=== PATIENT | female | born 1970 | race Caucasian/White ===

== ENCOUNTER 2017-08-24 13:22 | Emergency (ER) | payer SELFPAY ==
[2017-08-24 13:23] VITALS: BP 160/108; PULSE 115; RESP 22; TEMP 37.2; O2SAT 95; BMI 39.5
--- NOTE | 2017-08-24 13:40 | RAD_ITS ---
STUDY: X-RAY CHEST REASON FOR EXAM: Female, 46 years old. Chest pain/anxiety attack. TECHNIQUE: Single portable frontal chest. COMPARISON: October 16, 2013. FINDINGS: The lungs are clear and expanded. There is no pleural effusion. There is no pneumothorax. Normal size heart. Normal mediastinum and magda. Normal visualized pulmonary arteries. Normal visualized aortic arch and descending thoracic aorta. Normal visualized thoracic spine. Normal visualized ribs, clavicles, and shoulders. There is no demonstrated abnormality of the visualized soft tissue structures of the upper abdomen. RAD/Chest 1 View (Portable) IMPRESSION: There is no radiographically evident acute cardiopulmonary disease. Electronically Signed: Jimmy Contreras MD at 15:08 EDT , Service support ,
--- NOTE | 2017-08-24 13:40 | EKG12_ITS ---
Test Reason : CP Blood Pressure : / mmHG Vent. Rate : 097 BPM Atrial Rate : 097 BPM P-R Int : 184 ms QRS Dur : 100 ms QT Int : 364 ms P-R-T Axes : 037 004 017 degrees QTc Int : 462 ms Normal sinus rhythm Low voltage QRS (limb leads) Poor R wave progression Confirmed by FIDENCIO BETTENCOURT, CHAYA ([id number]), telegraph editor REID SALGADO ([id number] on 08/27/2017 12:57:40 PM Referred By: NED/STANFORD Confirmed By:CHAYA NICOLAS MD
[2017-08-24] MEDS: 0.9% Normal Saline 1,000 ML 150 ML IV (14:01)
[2017-08-24] MEDS: LORazepam 2 MG/ML Syringe 1 MG IV ×2 (14:01→15:41)
[2017-08-24] MEDS: Aspirin 81 MG TAB.CHEW 324 MG PO (14:01)
[2017-08-24 14:09] VITALS: O2SAT 97
[2017-08-24 14:15] LABS: Absolute Neutrophil Count 5.4 X10^3/uL (2.0-7.7); Basophil# 0.02 X10^3/uL; Basophil% 0.3 % (0-1); Eosinophil# 0.04 X10^3/uL; Eosinophils% 0.5 % (0-5); Hematocrit 38.9 % (37-47); Hemoglobin 13.5 g/dl (12.0-15.0); Lymphocyte % 19.2 % (19-41); Mean Corp Hgb Conc 34.7 g/gl (32-36); Mean Corpuscular Hgb 28.8 pg (27.0-32.0); Mean Corpuscular Volume 82.9 fL (81-99); Mean Platelet Vol. 10.3 fl (6.2-12.0); Monocyte# 0.38 X10^3/uL; Monocyte% 5.2 % (0-10); Neutrophil # 5.43 X10^3/uL (2.7-7.7); Neutrophil % 74.7 % (47-70); POSITIVE COUNT NO; POSITIVE DIFFERENTIAL NO; POSITIVE MORPHOLOGY NO; Platelet Count 372 K/mm3 (150-450); RBC Distribution Width CV 13.3 % (11.6-14.6); RBC Distribution Width SD 39.8 fl (35.1-43.9); Red Blood Count 4.69 M/mm3 (4.2-5.4); White Blood Count 7.3 K/mm3 (4.4-11.0)
[2017-08-24 14:30] LABS: Anion Gap 9 (5-15); BUN 8 mg/dL (7-18); BUN/Creat Ratio 7.5 RATIO (10-20); Calcium,Total 7.4 mg/dL (8.5-10.1); Chloride 102 mmol/L (98-107); Creatinine, Serum 1.06 mg/dL (0.55-1.02); EST Glomerular Filtration Rate 59 mL/min (>60); Est Glom Filt Rate - Afr Amer 72 mL/min (>60); Estimated Creatinine Clearance 60.31 ml/min; Glucose 149 mg/dL (74-106); Potassium 3.2 mmol/L (3.5-5.1); Sodium Level 136 mmol/L (136-145)
[2017-08-24 15:42] VITALS: BP 150/95; PULSE 86; RESP 17; O2SAT 97
--- NOTE | 2017-08-24 16:30 | ED.DEP ---
ED Disposition - Plan for ED Patient: Chief Complaint: Anxiety Instructions: ED Chest Pain Atypical Unkn Cause, ED Stress React Prescriptions: Lorazepam [Ativan] 1 mg PO TID PRN PRN #10 tab PRN Reason: Anxiety Referrals: Brendon Saenz DO [Primary Care Provider] - 3-5 Days
--- NOTE | 2017-08-24 16:38 | ED.DCSUM_ITS ---
- ER Visit Summary Date of Service: 08/24/17 Chief Complaint: [Anxiety reaction] History of Present Illness: The patient is a 46 F [presents to the emergency department with complaint of anxiety. Patient's had a lot of anxiety issues over the last month and had been on medications but nothing seemed to help therefore eventually she was taken off of everything. Patient currently only using Klonopin 1 mg twice a day. Patient states that she has not worked in over a week. Patient feels like she cannot do her daily activities because of the amount of anxiety that she has. A month ago patient had some discomfort in her chest and jaw that then resolved. Today she was driving and developed more chest discomfort and some shortness of breath. Patient feels fatigued and overwhelmed. Patient believes her symptoms are likely due to her anxiety. Patient does not have any heart history. There is no family history of heart disease. Patient does have a history of hypothyroidism. Patient denies recent travel or surgery. No history of PE or DVT.] Patient not suicidal or homicidal. Physical Examination: [HEENT-PERRLA, EOMI. Cranial nerves II through XII grossly intact. TMs clear. Mucous membranes moist. No adenopathy. Patient somewhat tearful. Cardiovascular-regular rate and rhythm without murmur or ectopy Lungs-clear to auscultation, chest wall stable without crepitus or subcu emphysema Abdomen-normoactive bowel sounds, soft, nontender, no rebound or rigidity, no peritoneal signs. Extremities-intact ?4, normal range of motion, normal pulses, atraumatic] Test Results: [EKG obtained on arrival shows sinus rhythm with a ventricular rate of 97 bpm with no acute ST segment changes noted. CBC with differential was normal. Chemistries were unremarkable other than a slightly depressed potassium of 3.2 for which I did give her 40 mEq potassium chloride p.o. Troponin was less than 0.02. Chest x-ray showed nothing acute.] Emergency Department Course and Treatment: [Patient was medicated with Ativan 1 mg IV ?2. Patient's chest pain resolved and she is feeling much improved. I did have the diversified crops i farmworker from the counseling center speak with the patient as patient does have a appointment in 2 days with her psychiatrist. At this point it is not felt patient would require inpatient admission and treatment for her anxiety however arrangements were made for patient to have her follow-up appointment with her psychiatrist tomorrow.] I do not feel her chest pain is cardiac in nature as her ANGELIC risk score is a 0 out of 7. I feel her symptoms are likely related to her anxiety. Treatment Plan: [Patient will be given a prescription for 10 Ativan as needed for anxiety until she can follow-up with her psychiatrist] Disposition: [Discharged to home in stable condition] Impression: [Anxiety reaction Chest pain-atypical] This note was generated with [employer] dictation software. It may contain incorrect words, spelling, and punctuation that were not noted in review of the chart prior to signing ED Disposition - Plan for ED Patient: Chief Complaint: Anxiety Instructions: ED Stress React, ED Chest Pain Atypical Unkn Cause Prescriptions: Lorazepam [Ativan] 1 mg PO TID PRN PRN #10 tab PRN Reason: Anxiety Referrals: Brendon Saenz DO [Primary Care Provider] - 3-5 Days
[2017-08-24 16:49] VITALS: BP 150/100; PULSE 89; RESP 13; O2SAT 98
== END 2017-08-24 16:50 | disposition home or self-care (01) ==
LOC: ED 13:59
PROVIDERS: Emergency Provider Emergency Medicine; Family Provider Student in an Organized Health Care Education/Training Program; PCP Student in an Organized Health Care Education/Training Program
DX: F41.9 Anxiety disorder, unspecified (principal); R07.9 Chest pain, unspecified; E03.9 Hypothyroidism, unspecified
CPT/HCPCS: 71045; 80048; 84484; 85025; 93005; 99285; J7030; A4216

== ENCOUNTER → 2019-02-16 08:06 | Outpatient (CLI) | payer OTHER, SELFPAY ==
[2019-02-16 09:14] LABS: Hemoglobin A1c 5.5 % (4.2-6.3)
[2019-02-16 09:17] LABS: Vitamin D,25 Hydroxy 43.2 ng/mL (29.95-100.01)
[2019-02-16 09:24] LABS: ALB/GLOB Ratio 0.8 RATIO (0.9-2.4); AST(SGOT) 23 U/L (15-37); Alanine Aminotransfer ALT/SGPT 25 U/L (13-56); Albumin, Serum 3.6 g/dL (3.2-5.0); Alkaline Phosphatase 71 U/L (45-117); Anion Gap 9 (5-15); BUN 18 mg/dL (7-18); BUN/Creat Ratio 20.1 RATIO (10-20); Calcium,Total 8.2 mg/dL (8.5-10.1); Chloride 102 mmol/L (98-107); Creatinine, Serum 0.89 mg/dL (0.55-1.02); EST Glomerular Filtration Rate 72 mL/min (>60); Est Glom Filt Rate - Afr Amer 87 mL/min (>60); Free T3 3.4 pg/mL (2.18-3.98); Globulin 4.3 g/dL (2.2-4.2); Glucose 115 mg/dL (74-106); Magnesium 1.9 mg/dL (1.6-2.6); Potassium 3.9 mmol/L (3.5-5.1); Protein, Total 7.9 g/dL (6.4-8.2); Sodium Level 137 mmol/L (136-145); T4 Free Direct 0.98 ng/dL (0.76-1.46); Thyroid Stim Hormone (TSH) 5.67 uIU/mL (0.358-3.74)
[2019-02-16 09:30] LABS: Calcium, Urine (Random) 12.3 mg/dL (Not Estab.)
[2019-02-17 16:49] LABS: Vitamin D 1,25-Dihydroxy 21.8 pg/mL (19.9-79.3)
[2019-02-18 16:15] LABS: Thyroid Peroxidase AB 18 IU/mL (0-34)
== END ==
PROVIDERS: Family Provider Student in an Organized Health Care Education/Training Program; PCP Student in an Organized Health Care Education/Training Program; Referring Provider Internal Medicine Endocrinology, Diabetes & Metabolism; Visit Provider Internal Medicine Endocrinology, Diabetes & Metabolism
DX: R73.03 Prediabetes (principal); E20.9 Hypoparathyroidism, unspecified; R79.89 Other specified abnormal findings of blood chemistry
CPT/HCPCS: 36415; 80053; 82306; 82330; 82340; 82570; 82652; 83036; 83735; 83970; 84100; 84439; 84443; 84481; 86376

== ENCOUNTER → 2019-03-15 09:52 | Outpatient (CLI) | payer OTHER, SELFPAY ==
[2019-03-15 09:22] VITALS: BMI 44.6
== END ==
LOC: HPRAD 14:16 → RAD 14:16
PROVIDERS: Family Provider Student in an Organized Health Care Education/Training Program; PCP Student in an Organized Health Care Education/Training Program; Visit Provider Chiropractor
DX: M99.03 Segmental and somatic dysfunction of lumbar region (principal); M99.01 Segmental and somatic dysfunction of cervical region
CPT/HCPCS: 72040; 72110

== ENCOUNTER → 2019-09-21 09:53 | Outpatient (CLI) | payer OTHER, SELFPAY ==
[2019-05-26 12:30] VITALS: BMI 44.9
[2019-09-21 10:56] LABS: Vitamin D,25 Hydroxy 37.8 ng/mL
[2019-09-21 11:07] LABS: ALB/GLOB Ratio 0.8 RATIO (0.9-2.4); AST(SGOT) 30 U/L (15-37); Alanine Aminotransfer ALT/SGPT 32 U/L (13-56); Albumin, Serum 3.6 g/dL (3.2-5.0); Alkaline Phosphatase 78 U/L (45-117); Anion Gap 7 (5-15); BUN 16 mg/dL (7-18); BUN/Creat Ratio 16.1 RATIO (10-20); Calcium,Total 7.2 mg/dL (8.5-10.1); Chloride 100 mmol/L (98-107); Creatinine, Serum 0.99 mg/dL (0.55-1.02); EST Glomerular Filtration Rate 63 mL/min (>60); Est Glom Filt Rate - Afr Amer 77 mL/min (>60); Globulin 4.6 g/dL (2.2-4.2); Glucose 121 mg/dL (74-106); Potassium 3.2 mmol/L (3.5-5.1); Protein, Total 8.2 g/dL (6.4-8.2); Sodium Level 138 mmol/L (136-145); Thyroid Stim Hormone (TSH) 3.95 uIU/mL (0.358-3.74)
[2019-09-22 09:20] LABS: Thyroid Peroxidase AB < 9 IU/mL (0-34)
== END ==
PROVIDERS: PCP Student in an Organized Health Care Education/Training Program; Referring Provider Internal Medicine Endocrinology, Diabetes & Metabolism; Visit Provider Internal Medicine Endocrinology, Diabetes & Metabolism
DX: E20.9 Hypoparathyroidism, unspecified (principal); R94.6 Abnormal results of thyroid function studies; E55.9 Vitamin D deficiency, unspecified
CPT/HCPCS: 36415; 80053; 82306; 84443; 86376

== ENCOUNTER 2019-10-03 09:13 | Day surgery (SDC) | payer OTHER, SELFPAY ==
[2019-09-27 09:11] VITALS: BMI 44.9
--- NOTE | 2019-09-27 09:15 | HP_ITS ---
Intake Vital Signs 09/27/19 BMI 44.9 09/27/19 Height 5 ft 5 in 09/27/19 Weight: 270 lb 09/27/19 BMI 44.9 09/27/19 BP 130/85 H 09/27/19 Blood Pressure Location Rt brachial 09/27/19 Position Sitting 09/27/19 Respiration 18 09/27/19 Temp 97.6 F L 09/27/19 Temp Source Temporal Intake Visit Reasons: HEMATOCHEZIA/ LOWER ABDOMINAL PAIN/ CSCOPE Chief Complaint: Thyroid Product Owner Required: No Is patient in pain?: No Allergies adhesive tape Allergy (Intermediate, Verified 09/27/19 09:11) Rash Penicillins Allergy (Verified 09/27/19 09:11) Shortness of breath prednisone Adverse Reaction (Mild, Verified 09/27/19 09:11) Other citalopram [From Celexa] Adverse Reaction (Verified 09/27/19 09:11) Other lactose Adverse Reaction (Verified 09/27/19 09:11) Diarrhea Medications Cholecalciferol (Vitamin D3) [Vitamin D3] 2,000 unit PO DAILY 08/24/17 [History Confirmed 09/27/19] calcium carbonate 200 mg calcium (500 mg)-vitamin D3 400 unit tablet tab PO BID tab 02/14/19 [History Confirmed 09/27/19] clonazepam 0.5 mg tablet 0.5 mg PO BID 02/14/19 [History Confirmed 09/27/19] cyclobenzaprine 10 mg tablet 10 mg PO HS PRN 02/14/19 [History Confirmed 09/27/19] losartan 50 mg tablet 50 mg PO DAILY 02/14/19 [History Confirmed 09/27/19] mirtazapine 15 mg tablet 15 mg PO DAILY 02/14/19 [History Confirmed 09/27/19] multivitamin 1 cap PO DAILY 02/14/19 [History Confirmed 09/27/19] sertraline 100 mg tablet 150 mg PO DAILY tab 02/14/19 [History Confirmed 09/27/19] hydrochlorothiazide 25 mg tablet 25 mg PO DAILY #30 tab 02/21/19 [Rx Confirmed 09/27/19] calcitriol 0.5 mcg capsule 0.5 mcg PO DAILY #90 cap 09/23/19 [Rx Confirmed 09/27/19] [facility] Medical History Anxiety (Acute) Arthritis (Acute) Back problem (Acute) Breast cyst (Acute) Carpal tunnel syndrome (Acute) GI problem (Acute) Gallstones (Acute) History of anemia (Acute) Hx of fracture (Acute) Seasonal allergies (Acute) Chronic headaches (Chronic) HTN (hypertension) (Chronic) Hypoparathyroidism (Chronic) Osteoarthritis (Chronic) Vitamin D deficiency (Chronic) Low calcium levels (Resolved) Surgical History S/P endometrial ablation (Acute) History of adenoidectomy (Inactive) Family History Brother Asthma Autoimmune disorder Diabetes Hypertension Kidney disease Mental disorder Mother Arthritis Blood clot in vein Diabetes Mental disorder Hyperlipidemia Grandmother Cancer Melanoma Grandfather Myocardial infarction Heart disease Hyperlipidemia Social History (Updated 09/27/19 @ 09:[address] Ramon Guardado MD) Smoking Status: Former smoker alcohol intake: never substance use type: does not use what type of physical activity do you participate in: none HPI HPI Surgical H&P: Yes HPI: DANNI FLETCHER, is a 48 F who presents to the office today for Evaluation of hematochezia. Patient states that last week she had a solid and started to develop crampy and bloody hematochezia with clots lasted about 4 hours with diarrhea as well. Her bowel movements have started to get more solid but she is still noticing blood. She has no history of bowel issues no history of hemorrhoidal disease. She is not on any blood thinners. She has not had a CAT scan of her abdomen and pelvis yet. Nor has she had any stool cultures. ROS General General: No weight change, appetite, fatigue, colon cancer, breast cancer or weakness HEENT HEENT: No difficulty swallowing, eye injury, eye surgery, swollen glands or hoarseness Endo Endocrine: No thyroid disease, diabetes mellitus, thyroid cancer, Hair loss, heat intolerance or cold intolerance Skin Skin: Yes rash; no changing moles Breast Breast: No left breast lump, right breast lump, nipple discharge, breast pain, abnormal mammogram, abnormal US or breast enlargement Musc Musculoskeletal: Yes back problems and arthritis; no rheumatoid arthritis, gout or joint pain Cardio Cardiovascular: Yes high blood pressure; no murmur, pacemaker, heart disease, atrial fibrillation, heart attack, heart stent, palpitations, shortness of breat with exertion or chest pain Psych Psychiatric: Yes anxiety; no depression or hearing voices Resp Respiratory: No shortness of breath, No sleep apnea, No cough, No COPD, No asthma, No emphysema, No wheezing Gastro Gastrointestinal: Yes abdominal pain, No nausea or vomiting, Yes diarrhea, No constipation, Yes blood in stool, No acid reflux, No hemorrhoids, No ulcers, Yes gallbladder problem, No black,tarry stools Carlos Hematologic: No blood thinners, No blood disorders, No bleeding, Yes anemia, No blood clots Neuro Neurologic: No system reviewed and no additional complaints, except as docu, No as per HPI, No abnormal walking, No abnormal hearing, No abnormal movements, No abnormal speech, No behavioral changes, No burning sensations, No confusion, No seizure-like activity, No unsteadiness, No dizziness, No localized weakness, No frequent falls, No headache(s), No lack of coordination, No loss of vision, No memory loss, Yes numbness, No other visual disturbances, No radiating pain, No restless legs, No sensory deficit, No fainting, Yes tingling, No tremor(s), No weakness, No other Exam Const General: no acute distress, well developed, well hydrated Orientation: oriented to person, oriented to place, oriented to time [facility] Head: normocephalic, atraumatic Ears: external ears normal Mouth: moist mucous membranes Eyes Sclera: sclerae normal Pupils: normal by confrontation Neck Neck: no lymphadenopathy noted Neck mass: No Thyroid: thyroid normal, symmetrical Chest Chest palpation & inspection: normal inspection of the chest Breast Palpation: No nipple discharge Resp Effort & Inspection: normal respiratory effort Auscultation: clear to auscultation bilaterally Percussion: percussion normal Cardio Rate: regular rate Rhythm: regular rhythm Heart Sounds: no murmurs GI Inspection: obesity Palpation: soft, no hepatosplenomegaly, no masses, nontender Rectal Exam: other Other: Rectal exam deferred. Extrem General: normal to inspection, no clubbing, cyanosis or edema Assessment & Plan Problems 1. Hematochezia K92.1 2. Diarrhea, unspecified type R19.7 Plan I have discussed the above with the patient. I have offered the patient colonoscopy for evaluation. I have explained the risks/benefits of the procedure and described the procedure. I have discussed the risks with the patient, including but not limited to: infection, bleeding, perforation of the GI tract requiring emergency surgery, inability to complete the procedure, injury to any internal organs, complications of anesthesia, etc. - the patient understands and agrees to proceed. I have answered all the patient's questions to the patient's satisfaction and the patient has no further questions. The patient has been given instructions for the colon cleansing preparation. I am going to also obtain stool cultures and sensitivity as well as a C. difficile. We will do random colon biopsies if the colonoscopy is entirely negative. Plan Detail Goals Decrease pain Decrease spasm Improve ability to walk for more than 5min Barriers Obesity Anterolisthesis Coding Level of Care Code Off vis,new,level 3 Diagnoses Hematochezia K92.1 Diarrhea, unspecified type R19.7 ??Diarrhea type: unspecified type 09/27/19 0916 <Electronically signed by Ramon perla MD> Date _ Ramon Guardado MD I have re-examined the patient. There are no clinical changes since date of exam.
--- NOTE | 2019-10-03 | COLBX_PTH ---
PATIENT: DANNI FLETCHER LOC: EN U#:[id number] AGE/SX: 48/F ROOM: RE10/03/[address]: Dr. Ramon Guardado MD : 1970 BED: DIS: 10/03/2019 SPEC #: [id number] RECD: 10/03/19 12:15 STATUS: KAVEH JAN #: [id number] MERRICK: 10/03/19 00:[address]: Ramon Guardado DEPT: SURGICAL PATHOLOGY RECD BY: Jose Angel Tobin ENTERED: 10/03/19 12:16 SP TYPE: COLON BX OTHR DR: Dr. Brendon Saenz, Tissues: COLON BIOPSY Procedures: Surgery Specimen Level IV HEADER OPERATION: Colonoscopy (MAC) PRE-OP DIAGNOSIS: Hematochezia, diarrhea TISSUE SUBMITTED: Random colonic biopsy MICROSCOPIC DIAGNOSIS Colon, random biopsy: No pathologic change. AM:mark 10/04/19 MICROSCOPIC DESCRIPTION Slides are reviewed. GROSS DESCRIPTION Received in fixative is one container labeled with the patient's name and designated random colon biopsy. The specimen consists of multiple irregular fragments of light aguirre soft tissue that in aggregate measure 2 x 1 x 0.1 cm. The specimen is totally submitted in one cassette. / AM:mark 10/03/19 TC:5 CPT: 30650
[2019-10-03 09:34] VITALS: BP 141/92; PULSE 91; RESP 16; TEMP 36.4; O2SAT 98; BMI 44.8
[2019-10-03 09:41] LABS: Internal QC Validated? YES +Cl - CLEAR BKGD; Pregnancy, Urine Negative Negative
[2019-10-03] MEDS: Lactated Ringers 1,000 ML 100 ML IV (09:45)
--- NOTE | 2019-10-03 10:28 | OP.CCLET_ITS ---
10/03/2019 Brendon Saenz [id number] [id number] Re : Colonoscopy procedure for Ioana Long Dear Dr. Saenz This procedure was performed on Thursday, October 03, 2019. My impressions and recommendations are as follows: Impressions : - The entire examined colon is normal. Biopsied. - Non-bleeding internal hemorrhoids. - The examination was otherwise normal. Recommendations : - Discharge patient to home. - Resume previous diet. - Continue present medications. - Await pathology results. - Repeat colonoscopy in 10 years for screening purposes. - Return to my office in 1 week. My findings are described in the full procedure note, which is enclosed. If I can be of further assistance, please feel free to contact me at Doctor phone number(s): , Fax: [phone], Work: . Sincerely, MD Ramon Sheehan MD 10/03/2019 10:27:24 AM This report has been signed electronically.
--- NOTE | 2019-10-03 10:28 | OP.COLON_ITS ---
Patient Name: Ioana Long Procedure Date: 10/03/2019 10:01 AM Date of : 1970 Age: 48 Procedure: Colonoscopy Indications: Hematochezia Providers: Ramon Guardado MD Referring MD: Brendon Saenz Medicines: See the Anesthesia note for documentation of the administered medications Patient Profile: This is a 48 year old female. Refer to note in patient chart for documentation of history and physical. Last Colonoscopy: none. The patient's first colonoscopy is today. Complications: No immediate complications. Procedure: Pre-Anesthesia Assessment: - Prior to the procedure, a History and Physical was performed, and patient medications and allergies were reviewed. The patient's tolerance of previous anesthesia was also reviewed. The risks and benefits of the procedure and the sedation options and risks were discussed with the patient. All questions were answered, and informed consent was obtained. Prior Anticoagulants: The patient has taken no previous anticoagulant or antiplatelet agents. ASA Grade Assessment: III - A patient with severe systemic disease. After reviewing the risks and benefits, the patient was deemed in satisfactory condition to undergo the procedure. After I obtained informed consent, the scope was passed under direct vision. Throughout the procedure, the patient's blood pressure, pulse, and oxygen saturations were monitored continuously. The adult colonoscope was introduced through the anus and advanced to the cecum, identified by appendiceal orifice and ileocecal valve. The colonoscopy was performed without difficulty. The patient tolerated the procedure well. The quality of the bowel preparation was good. Scope In: 10:13:00 AM Scope Withdrawal Time 0 hours 6 minutes 15 seconds Scope Out: 10:24:20 AM Total Procedure Duration Time 0 hours 11 minutes 20 seconds Findings: The colon (entire examined portion) appeared normal. Biopsies for histology were taken with a cold forceps from the entire colon for evaluation of microscopic colitis. Non-bleeding internal hemorrhoids were found during retroflexion. The hemorrhoids were mild and small. The exam was otherwise without abnormality. Impression: - The entire examined colon is normal. Biopsied. - Non-bleeding internal hemorrhoids. - The examination was otherwise normal. Recommendation: - Discharge patient to home. - Resume previous diet. - Continue present medications. - Await pathology results. - Repeat colonoscopy in 10 years for screening purposes. - Return to my office in 1 week. Procedure Code(s): --- Professional --- 26760, Colonoscopy, flexible; with biopsy, single or multiple Diagnosis Code(s): --- Professional --- K64.8, Other hemorrhoids K92.1, Melena (includes Hematochezia) CPT copyright 2017 [employer]. All rights reserved. The codes documented in this report are preliminary and upon hspt tutor review may be revised to meet current compliance requirements. MD Ramon Sheehan MD 10/03/2019 10:27:24 AM This report has been signed electronically. Number of Addenda: 0 Note Initiated On: 10/03/2019 10:01 AM
[2019-10-03 10:29] VITALS: BP 121/83; BP 141/92; PULSE 76; RESP 18; TEMP 36.8; O2SAT 97
[2019-10-03 10:34] VITALS: BP 132/80; BP 141/92; PULSE 73; RESP 16; O2SAT 94
[2019-10-03 10:40] VITALS: BP 131/82; BP 141/92; PULSE 73; RESP 16; O2SAT 95
[2019-10-03 10:45] VITALS: BP 129/82; BP 141/92; PULSE 71; RESP 18; TEMP 36.8; O2SAT 97
[2019-10-03 11:09] VITALS: BP 141/92
== END 2019-10-03 11:10 | disposition home or self-care (01) ==
LOC: EN 09:13 → AC 09:14
PROVIDERS: Anesthesiology; PCP Student in an Organized Health Care Education/Training Program; Referring Provider Student in an Organized Health Care Education/Training Program; Visit Provider Surgery
PROC: 0DJD8ZZ Inspection of Lower Intestinal Tract, Via Natural or Artificial Opening Endoscopic (ICD-10-PCS; CPT 45378; principal; 2019-10-03 10:10)
DX: K92.1 Melena (principal); R19.7 Diarrhea, unspecified; K64.8 Other hemorrhoids; I10 Essential (primary) hypertension; E20.9 Hypoparathyroidism, unspecified; Z87.891 Personal history of nicotine dependence; Z88.0 Allergy status to penicillin; E66.9 Obesity, unspecified; Z68.41 Body mass index [BMI] 40.0-44.9, adult; Z11.59 Encounter for screening for other viral diseases
CPT/HCPCS: 45380; 81025; 87635; 88305; G2023; J7120; J1610; J2405; U0004

== ENCOUNTER → 2019-10-17 10:28 | Outpatient (CLI) | payer OTHER, SELFPAY ==
[2019-10-03 09:34] VITALS: BMI 44.8
[2019-10-17 11:26] LABS: Anion Gap 7 (5-15); BUN 19 mg/dL (7-18); Calcium,Total 8.1 mg/dL (8.5-10.1); Chloride 97 mmol/L (98-107); Creatinine, Serum 0.95 mg/dL (0.55-1.02); EST Glomerular Filtration Rate 67 mL/min (>60); Est Glom Filt Rate - Afr Amer 81 mL/min (>60); Glucose 139 mg/dL (74-106); Potassium 3.5 mmol/L (3.5-5.1); Sodium Level 135 mmol/L (136-145)
== END ==
PROVIDERS: PCP Student in an Organized Health Care Education/Training Program; Referring Provider Internal Medicine Endocrinology, Diabetes & Metabolism; Visit Provider Internal Medicine Endocrinology, Diabetes & Metabolism
DX: E20.9 Hypoparathyroidism, unspecified (principal); E87.6 Hypokalemia
CPT/HCPCS: 36415; 80048

== ENCOUNTER → 2019-10-20 12:44 | Outpatient (CLI) | payer OTHER, SELFPAY ==
[2019-10-20 12:36] VITALS: BMI 44.9
--- NOTE | 2019-10-20 12:45 | RAD_ITS ---
STUDY: X-RAY - LEFT WRIST REASON FOR EXAM: Pain at the medial aspect of the wrist, unsure of injury. TECHNIQUE: 3 view(s) of the wrist were obtained. COMPARISON: None. FINDINGS: Normal visualized distal radius and ulna. Normal radiocarpal articulation. Normal distal radioulnar articulation. Normal carpal bones. Normal carpal articulations. Normal carpometacarpal articulation of the thumb. Normal second through fifth carpometacarpal articulations. Normal visualized metacarpal bones. There are small subtle calcifications proximal to the triquetrum on the PA view. RAD/Wrist min 3 Views IMPRESSION: Small subtle calcifications proximal to the triquetrum. Otherwise, unremarkable x-ray examination of the left wrist. Electronically Signed: Avel Low MD at 13:10 EDT Tel , Service support ,
== END ==
PROVIDERS: PCP Student in an Organized Health Care Education/Training Program; Referring Provider Orthopaedic Surgery; Visit Provider Orthopaedic Surgery
DX: M25.532 Pain in left wrist (principal)
CPT/HCPCS: 73110

== ENCOUNTER → 2020-01-03 11:32 | Outpatient (CLI) | payer OTHER, SELFPAY ==
[2020-01-02 09:30] VITALS: BMI 44.8
[2020-01-03 12:27] LABS: Mucous, Urine 0 SEEN /hpf (<or=2+); Red Blood Cells-Urine 0 SEEN /hpf (0-5)
[2020-01-03 12:47] LABS: Color, Urine Yellow (Yellow); Glucose, Dipstick Normal (Normal); Ketone-Dipstick Negative (Negative); Leukocyte Esterase-Dipstick 100 /ul (Negative); Nitrite-Dipstick Negative (Negative); Occult Blood-Urine Negative /ul (Negative); Protein-Dipstick Negative (Negative); Urine Bilirubin Dipstick Negative (Negative); Urine Clarity Clear (Clear); Urine Urobilinogen Normal (Normal)
[2020-01-03 13:07] LABS: Bacteria RARE /hpf (None Seen); Squamous Epithelial Cells - UA 0-5 SEEN /hpf (5-10); White Blood Cells 0-5 SEEN /hpf (0-5)
== END ==
PROVIDERS: PCP Student in an Organized Health Care Education/Training Program; Referring Provider Registered Nurse; Visit Provider Registered Nurse
DX: R31.29 Other microscopic hematuria (principal)
CPT/HCPCS: 81001; 87086; 87088

== ENCOUNTER → 2020-03-22 07:53 | Outpatient (CLI) | payer OTHER, SELFPAY ==
[2020-01-02 09:30] VITALS: BMI 44.8
[2020-03-22 09:04] LABS: ALB/GLOB Ratio 0.8 RATIO (0.9-2.4); AST(SGOT) 18 U/L (15-37); Alanine Aminotransfer ALT/SGPT 23 U/L (13-56); Albumin, Serum 3.6 g/dL (3.2-5.0); Alkaline Phosphatase 67 U/L (45-117); Anion Gap 7 (5-15); BUN 18 mg/dL (7-18); BUN/Creat Ratio 19.6 RATIO (10-20); Chloride 105 mmol/L (98-107); Creatinine, Serum 0.92 mg/dL (0.55-1.02); EST Glomerular Filtration Rate 69 mL/min (>60); Est Glom Filt Rate - Afr Amer 84 mL/min (>60); Globulin 4.3 g/dL (2.2-4.2); Glucose 113 mg/dL (74-106); Potassium 3.7 mmol/L (3.5-5.1); Protein, Total 7.9 g/dL (6.4-8.2); Sodium Level 139 mmol/L (136-145); T4 Free Direct 0.99 ng/dL (0.76-1.46); Thyroid Stim Hormone (TSH) 3.91 uIU/mL (0.358-3.74)
== END ==
PROVIDERS: PCP Student in an Organized Health Care Education/Training Program; Referring Provider Internal Medicine Endocrinology, Diabetes & Metabolism; Visit Provider Internal Medicine Endocrinology, Diabetes & Metabolism
DX: E20.9 Hypoparathyroidism, unspecified (principal); R94.6 Abnormal results of thyroid function studies
CPT/HCPCS: 36415; 80053; 84439; 84443

== ENCOUNTER → 2020-09-27 09:58 | Outpatient (CLI) | payer OTHER, SELFPAY ==
[2020-03-26 15:44] VITALS: BMI 44.9
[2020-09-27 11:43] LABS: Calcium,Total 9.1 mg/dL (8.5-10.1); Thyroid Stim Hormone (TSH) 2.45 uIU/mL (0.358-3.74)
== END ==
PROVIDERS: PCP Student in an Organized Health Care Education/Training Program; Referring Provider Internal Medicine Endocrinology, Diabetes & Metabolism; Visit Provider Internal Medicine Endocrinology, Diabetes & Metabolism
DX: E20.9 Hypoparathyroidism, unspecified (principal); R94.6 Abnormal results of thyroid function studies
CPT/HCPCS: 36415; 82310; 84443

== ENCOUNTER → 2021-03-21 18:10 | Outpatient (CLI) | payer OTHER, SELFPAY ==
[2021-03-21 18:11] LABS: Mucous, Urine 0 SEEN /hpf (<or=2+)
[2021-03-21 19:21] LABS: Color, Urine Yellow (Yellow); Glucose, Dipstick Normal (Normal); Ketone-Dipstick Negative (Negative); Leukocyte Esterase-Dipstick 100 /ul (Negative); Nitrite-Dipstick Negative (Negative); Occult Blood-Urine Negative /ul (Negative); Protein-Dipstick Negative (Negative); Urine Bilirubin Dipstick Negative (Negative); Urine Clarity Clear (Clear); Urine Urobilinogen Normal (Normal); Urine pH 6.5 (5.0 - 8.0)
[2021-03-21 19:32] LABS: White Blood Cells 0-5 SEEN /hpf (0-5)
[2021-03-21 19:33] LABS: Bacteria 2+ /hpf (None Seen); Red Blood Cells-Urine 0 SEEN /hpf (0-5); Squamous Epithelial Cells - UA 0-5 SEEN /hpf (5-10)
== END ==
PROVIDERS: PCP Student in an Organized Health Care Education/Training Program; Visit Provider Physician Assistant
DX: N39.0 Urinary tract infection, site not specified (principal)
CPT/HCPCS: 81001; 87086; 87088

== ENCOUNTER → 2021-08-22 | Outpatient (CLI) | payer OTHER, SELFPAY ==
[2021-08-22 15:20] LABS: Hematocrit 35.4 % (37-47); Mean Corp Hgb Conc 33.9 g/dL (32-36); Mean Corpuscular Volume 88.5 fL (81-99); Mean Platelet Vol. 9.7 fl (6.2-12.0); Platelet Count 312 K/mm3 (150-450); RBC Distribution Width CV 13.2 % (11.6-14.6); RBC Distribution Width SD 42.9 fl (35.1-43.9); White Blood Count 7.4 K/mm3 (4.4-11.0)
[2021-08-22 15:56] LABS: ALB/GLOB Ratio 0.9 RATIO (0.9-2.4); AST(SGOT) 26 U/L (15-37); Alanine Aminotransfer ALT/SGPT 31 U/L (13-56); Albumin, Serum 3.7 g/dL (3.2-5.0); Alkaline Phosphatase 65 U/L (45-117); Anion Gap 7 (5-15); BUN 21 mg/dL (7-18); BUN/Creat Ratio 20.4 RATIO (10-20); Calcium,Total 8.3 mg/dL (8.5-10.1); Chloride 100 mmol/L (98-107); Creatinine, Serum 1.03 mg/dL (0.55-1.02); EST Glomerular Filtration Rate 60 mL/min (>60); Est Glom Filt Rate - Afr Amer 73 mL/min (>60); Globulin 4.2 g/dL (2.2-4.2); Glucose 109 mg/dL (74-106); Potassium 3.4 mmol/L (3.5-5.1); Protein, Total 7.9 g/dL (6.4-8.2); Sodium Level 139 mmol/L (136-145); Thyroid Stim Hormone (TSH) 2.47 uIU/mL (0.358-3.74)
[2021-08-24 11:24] LABS: Thyroid Peroxidase AB < 8 IU/mL (0-34)
== END | disposition home or self-care (01) ==
LOC: LAB 14:11
PROVIDERS: Internal Medicine Endocrinology, Diabetes & Metabolism; PCP Student in an Organized Health Care Education/Training Program; Referring Provider Nurse Practitioner Family; Visit Provider Nurse Practitioner Family
DX: I10 Essential (primary) hypertension (principal); E20.9 Hypoparathyroidism, unspecified; E55.9 Vitamin D deficiency, unspecified
CPT/HCPCS: 80053; 82306; 84443; 85027; 86376

== ENCOUNTER 2021-09-12 15:21 | Inpatient (IN) | payer OTHER, SELFPAY ==
[2021-09-12 15:23] VITALS: BP 185/93; PULSE 99; RESP 17; TEMP 36.4; O2SAT 95; BMI 46.0
--- NOTE | 2021-09-12 15:36 | EKG12_ITS ---
Test Reason : FATIGUE Blood Pressure : / mmHG Vent. Rate : 071 BPM Atrial Rate : 071 BPM P-R Int : 222 ms QRS Dur : 100 ms QT Int : 390 ms P-R-T Axes : 068 -27 003 degrees QTc Int : 423 ms Sinus rhythm with sinus arrhythmia with 1st degree A-V block Nonspecific T wave abnormality Poor R wave progression Abnormal ECG Confirmed by FIDENCIO BETTENCOURT, CHAYA ([id number]), commissioning editor ASH RUBIO ([id number]) on 09/16/2021 1:26:19 PM Referred By: SLIM Confirmed By:CHAYA NICOLAS MD
--- NOTE | 2021-09-12 15:37 | EX.ED.DYSGE1 ---
HPI History of Present Illness Chief Complaint: Fatigue Informant: patient Narrative Narrative: Patient presents with increasing fatigue and findings of hypercalcemia with repeat lab work today. History of hypoparathyroidism followed by Dr. Benítez endocrinology. She states her Calcitrol was increased 3 weeks ago due to slightly low calcium. She is also on calcium carbonate. 2 weeks ago noted increasing fatigue and nausea. A week ago states she felt incapacitated. Increased urine frequency states does have occasional abdominal cramping and joint pain. Dysuria. No fevers. 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 Home COVID testing negative. Denies cough. Reports had her scheduled calcium drawl today for recheck and saw the level at 14.5. She tried calling endocrinology however states the doctor was too busy seeing patients. Therefore patient came down here. Denies racing heart palpitations or chest pain. States has a [place]. Prior similar symptoms: No PFSH PFSH Medical History Anxiety Arthritis Back pain Back problem Breast cyst Carpal tunnel syndrome Chronic headaches Essential hypertension Former smoker Gallstones GI problem History of anemia HTN (hypertension) Hx of fracture Hypoparathyroidism Low calcium levels Obesity Osteoarthritis Seasonal allergies Vitamin D deficiency Home Medications losartan 50 mg tablet 100 mg PO DAILY 02/14/19 [History Last Taken 09/12/21] sertraline 100 mg tablet 150 mg PO DAILY tab 02/14/19 [History Last Taken 09/12/21] ascorbate calcium (vitamin C) 500 mg tablet 500 mg PO BID 09/28/20 [History Last Taken 09/12/21] clonazepam 0.25 mg disintegrating tablet 0.5 mg PO DAILY PRN tab 09/28/20 [History Last Taken 09/10/21] cyclobenzaprine 10 mg tablet 10 mg PO DAILY PRN tab 09/28/20 [History Last Taken Unknown] mirtazapine 30 mg tablet 30 mg PO QHS tab 09/28/20 [History Last Taken 09/11/21] calcitriol 0.5 mcg capsule 0.5 mcg PO TID #270 cap 08/23/21 [Rx Last Taken 09/11/21] hydrochlorothiazide 25 mg tablet 25 mg PO DAILY #90 tab 08/23/21 [Rx Last Taken 09/11/21] calcium 600 mg PO BID 09/12/21 [History Last Taken 09/11/21] Allergy/AdvReac Type Severity Reaction Status Date / Time adhesive tape Allergy Intermediate Rash Verified 09/12/21 15:22 Penicillins Allergy Shortness Verified 09/12/21 15:22 of breath prednisone AdvReac Mild Other Verified 09/12/21 15:22 citalopram [From Celexa] AdvReac Other Verified 09/12/21 15:22 lactose AdvReac Diarrhea Verified 09/12/21 15:22 Family History Brother Asthma Autoimmune disorder Diabetes Hypertension Kidney disease Mental disorder Mother Arthritis Blood clot in vein Diabetes Mental disorder Hyperlipidemia Grandmother Cancer Melanoma Grandfather Myocardial infarction Heart disease Hyperlipidemia Surgical History History of adenoidectomy S/P endometrial ablation Social History Smoking Status: Former smoker alcohol intake: never substance use type: does not use what type of physical activity do you participate in: none ROS ROS ED Constitutional Constitutional ED: Denies chills, fever(s) or sweats Eyes Eyes: Denies change in vision ENT ENT ED: Denies dysphagia or sore throat Cardiovascular Cardiovascular: Denies chest pain, leg edema, palpitations or racing heartbeat Respiratory/Chest Respiratory/Chest: Denies cough, dyspnea or dyspnea on exertion Gastrointestinal Gastrointestinal: Denies abdominal pain, diarrhea, nausea or vomiting Genitourinary Genitourinary ED: Reports urinary frequency; Denies dysuria or hematuria Musculoskeletal Musculoskeletal: Reports arthralgias and myalgias; Denies back pain, extremity pain or neck pain Integumentary Denies rash or wounds Neurologic Neurologic: Reports weakness; Denies headache(s) or paresthesias EXAM Physical Exam Const Vital Signs: 09/12/21 15:23 09/12/21 15:56 09/12/21 17:45 Temperature 97.6 F L Temperature Source Temporal Pulse Rate 99 67 Respiratory Rate 17 18 Respiratory Effort Normal Non-Labored Respiratory Pattern Normal Blood Pressure 185/93 H 174/87 H Blood Pressure Mean 123 116 Pulse Ox 95 98 Oxygen Delivery Method Room Air Room Air 09/12/21 17:54 Temperature 97.6 F L Temperature Source Temporal Pulse Rate 73 Respiratory Rate 17 Respiratory Effort Respiratory Pattern Blood Pressure 163/101 H Blood Pressure Mean 121 Pulse Ox 99 Oxygen Delivery Method Room Air Positive well nourished and well developed General Appearance ED: well developed and NAD HEENT Reports moist mucous membranes normocephalic and atraumatic Eyes PERRL, EOMs intact bilaterally and conjunctivae normal General Eye ED: Yes normal appearance of both eyes Neck no lymphadenopathy and supple General: Negative for tenderness Chest Wall Chest: Negative for tenderness Resp normal respiratory effort and normal air movement Effort and Inspection: symmetric chest movement; Negative for respiratory distress Cardio regular rate, regular rhythm and no murmurs Peripheral Pulses: pulses 2+ throughout GI normal to inspection, nondistended, normoactive bowel sounds and non-tender Palpation: Negative for guarding or rebound tenderness present Back/Spine no CVA tenderness and no thoracic nor lumbar tenderness Extremity normal to inspection General Extremety ED: Negative for edema or tenderness General Extremity: Negative for edema Neuro oriented x3 and no sensory deficits noted Sensorium / Orientation: awake and alert Skin no rashes or lesions noted and no wounds MDM MDM MDM Narrative Medical decision making narrative: Patient does have a confirmed calcium 14.5 in the lab from outpatient. Likely from oversupplementation with medications. EKG will be obtained. We will give IV fluids which would be the initial treatment. We will recheck labs and urine due to symptoms. Patient presenting with symptoms consistent with hypercalcemia. 1720: EKG shows no acute changes. Laboratory does confirm of calcium 14.4. TSH normal. In addition her creatinine was up at 5.08 BUN of 61 potassium 3.0 magnesium 2.8. She denies any recent vomiting diarrhea however reports decreased oral intake due to her nausea over the past 2 weeks. Possible prerenal issue for her AYLA. She has continued on IV fluids. 2 L were ordered from initial onset. Patient will need hospitalization. Call out to hospital service. I spoke with Dr. Marshall for admission to medical floor on telemetry. Lab Data Attestation: I reviewed the patient's lab results. Labs: Laboratory Results - last 24 hr 09/12/21 09/12/21 09/12/21 15:59 15:59 17:14 WBC 10.5 RBC 4.07 L Hgb 12.4 Hct 35.1 L MCV 86.2 MCH 30.5 MCHC 35.3 RDW Std Deviation 38.9 RDW Coeff of Alex 12.4 Plt Count 331 MPV 9.7 Immature Gran % (Auto) 0.300 Neut % (Auto) 75.6 H Lymph % (Auto) 17.1 L [place] % (Auto) 5.3 Eos % (Auto) 1.3 Baso % (Auto) 0.4 Absolute Neuts (auto) 7.9 H Absolute Lymphs (auto) 1.79 Nucleated RBC % 0 Sodium 136 Potassium 3.0 L Chloride 93 L Carbon Dioxide 32.0 Anion Gap 11 BUN 61 H Creatinine 5.08 H Estim Creat Clear Calc 11.57 Est GFR (MDRD) Af Amer 12 L Est GFR (MDRD) Non-Af 10 L BUN/Creatinine Ratio 12.0 Glucose 130 H Calcium 14.4 H* Magnesium 2.8 H Total Bilirubin 0.50 AST 28 ALT 35 Alkaline Phosphatase 73 Total Protein 8.4 H Albumin 4.0 Globulin 4.4 H Albumin/Globulin Ratio 0.9 TSH 3.74 Urine Color Yellow Urine Clarity Clear Urine pH 8.0 Ur Specific [place] 1.015 Urine Protein 30 H Urine Glucose (UA) Normal Urine Ketones Negative Urine Occult Blood 10 H Urine Nitrite Negative Urine Bilirubin Negative Urine Urobilinogen Normal Ur Leukocyte Esterase 100 H Urine RBC 0-5 SEEN Urine WBC 5-10 SEEN Ur Squamous Epith Cells 0 SEEN Urine Bacteria 0 SEEN Urine Mucus 0 SEEN EKG Initial EKG: Attestation: I personally reviewed and interpreted this EKG as follows: Comments: Sinus with first-degree AV block, rate of 71. No ST changes there is isolated T wave version leads III. QTc 423. Discharge Plan Dx/Rx/DC Orders Clinical Impression: Hypercalcemia, Acute kidney injury, Hypermagnesemia, Acute hypokalemia Disposition Disposition: [facility] Discharge Date/Time: 09/12/21 18:22
[2021-09-12] MEDS: 0.9% Normal Saline 1,000 ML 1000 ML IV ×2 (16:00→16:01)
[2021-09-12 16:18] LABS: Absolute Lymphocyte Count 1.79 X10^3/uL (0.83-4.51); Absolute Neutrophil Count 7.9 X10^3/uL (2.0-7.7); Basophil# 0.04 X10^3/uL; Basophil% 0.4 % (0-1); Eosinophil# 0.14 X10^3/uL; Eosinophils% 1.3 % (0-5); Hematocrit 35.1 % (37-47); Hemoglobin 12.4 g/dL (12.0-15.0); Lymphocyte # 1.79 X10^3/ul (0.83-4.51); Lymphocyte % 17.1 % (19-41); Mean Corp Hgb Conc 35.3 g/dL (32-36); Mean Corpuscular Hgb 30.5 pg (27.0-32.0); Mean Corpuscular Volume 86.2 fL (81-99); Mean Platelet Vol. 9.7 fl (6.2-12.0); Monocyte# 0.55 X10^3/uL; Monocyte% 5.3 % (0-10); NRBC Flagged by Analyzer 0 % (0-5); Neutrophil % 75.6 % (47-70); Platelet Count 331 K/mm3 (150-450); RBC Distribution Width CV 12.4 % (11.6-14.6); RBC Distribution Width SD 38.9 fl (35.1-43.9); Red Blood Count 4.07 M/mm3 (4.2-5.4); White Blood Count 10.5 K/mm3 (4.4-11.0)
[2021-09-12 16:46] LABS: ALB/GLOB Ratio 0.9 RATIO (0.9-2.4); AST(SGOT) 28 U/L (15-37); Alanine Aminotransfer ALT/SGPT 35 U/L (13-56); Alkaline Phosphatase 73 U/L (45-117); Anion Gap 11 (5-15); BUN 61 mg/dL (7-18); Calcium,Total 14.4 mg/dL (8.5-10.1); Chloride 93 mmol/L (98-107); Creatinine, Serum 5.08 mg/dL (0.55-1.02); EST Glomerular Filtration Rate 10 mL/min (>60); Est Glom Filt Rate - Afr Amer 12 mL/min (>60); Estimated Creatinine Clearance 11.57 ml/min; Globulin 4.4 g/dL (2.2-4.2); Glucose 130 mg/dL (74-106); Magnesium 2.8 mg/dL (1.6-2.6); Protein, Total 8.4 g/dL (6.4-8.2); Sodium Level 136 mmol/L (136-145); Thyroid Stim Hormone (TSH) 3.74 uIU/mL (0.358-3.74)
[2021-09-12 17:20] LABS: Bacteria 0 SEEN /hpf (None Seen); Mucous, Urine 0 SEEN /hpf (<or=2+); Squamous Epithelial Cells - UA 0 SEEN /hpf (5-10)
[2021-09-12 17:32] LABS: Color, Urine Yellow (Yellow); Glucose, Dipstick Normal (Normal); Ketone-Dipstick Negative (Negative); Leukocyte Esterase-Dipstick 100 /ul (Negative); Nitrite-Dipstick Negative (Negative); Occult Blood-Urine 10 /ul (Negative); Protein-Dipstick 30 mg/dl (Negative); Specific Gravity, Urine 1.015 (1.002-1.030); Urine Bilirubin Dipstick Negative (Negative); Urine Clarity Clear (Clear); Urine Urobilinogen Normal (Normal)
[2021-09-12 17:45] VITALS: BP 174/87; PULSE 67; RESP 18; O2SAT 98
[2021-09-12 17:53] LABS: Red Blood Cells-Urine 0-5 SEEN /hpf (0-5); White Blood Cells 5-10 SEEN /hpf (0-5)
--- NOTE | 2021-09-12 17:53 | NURSING ---
MED SURG TERELETSYANETH HYPERCALCEMIA, AYLA
[2021-09-12 17:54] VITALS: BP 163/101; PULSE 73; RESP 17; TEMP 36.4; O2SAT 99
--- NOTE | 2021-09-12 18:16 | HP.PCM.HOS_ITS ---
Documented by User: Eric COPELAND 09/12/21 18:40 HPI - General General Date of Admission: 09/12/21 HPI Narrative DANNI FLETCHER is a 50-year-old female who presents to the ED at [facility] on 09/12/2021 with a chief complaint of weakness with abnormal labs. Patient reports that for the past 2 weeks she is been having increasing weakness with noted fatigue and nausea. Patient also reports occasional abdominal cramping with joint pain. Patient does note a medication change as her calcitriol was increased 3 weeks ago due to low calcium by her drill operator pneumatic Dr. Benítez. Patient follows with Dr. Benítez for hypoparathyroidism. Outpatient la bs revealed that patient calcium was elevated at 14.4. Patient was advised to report to the emergency department immediately for administration of IV fluids and observation. Patient does have a noted elevated blood pressure, currently 163/101. Other vital signs stable and patient is afebrile. CBC is unremarkable. BMP shows sodium at 136, potassium at 3.0, creatinine at 5.08, calcium at 40.4 and magnesium at 2.8. UA shows yellow clear urine, negative nitrites, 100 leukocyte esterase, 5-10 urine WBCs with [address] Benítez was consulted who advised that patient should be initiated on IV fluids and monitored. [facility] Medical History Anxiety Arthritis Back pain Back problem Breast cyst Carpal tunnel syndrome Chronic headaches Essential hypertension Former smoker Gallstones GI problem History of anemia HTN (hypertension) Hx of fracture Hypoparathyroidism Low calcium levels Obesity Osteoarthritis Seasonal allergies Vitamin D deficiency Home Medications losartan 50 mg tablet 100 mg PO DAILY 02/14/19 [History Last Taken 09/12/21] sertraline 100 mg tablet 150 mg PO DAILY tab 02/14/19 [History Last Taken 09/12/21] ascorbate calcium (vitamin C) 500 mg tablet 500 mg PO BID 09/28/20 [History Last Taken 09/12/21] clonazepam 0.25 mg disintegrating tablet 0.5 mg PO DAILY PRN tab 09/28/20 [History Last Taken 09/10/21] cyclobenzaprine 10 mg tablet 10 mg PO DAILY PRN tab 09/28/20 [History Last Taken Unknown] mirtazapine 30 mg tablet 30 mg PO QHS tab 09/28/20 [History Last Taken 09/11/21] calcitriol 0.5 mcg capsule 0.5 mcg PO TID #270 cap 08/23/21 [Rx Last Taken 09/11/21] hydrochlorothiazide 25 mg tablet 25 mg PO DAILY #90 tab 08/23/21 [Rx Last Taken 09/11/21] calcium 600 mg PO BID 09/12/21 [History Last Taken 09/11/21] Allergy/AdvReac Type Severity Reaction Status Date / Time adhesive tape Allergy Intermediate Rash Verified 09/12/21 15:22 Penicillins Allergy Shortness Verified 09/12/21 15:22 of breath prednisone AdvReac Mild Other Verified 09/12/21 15:22 citalopram [From Celexa] AdvReac Other Verified 09/12/21 15:22 lactose AdvReac Diarrhea Verified 09/12/21 15:22 Family History Brother Asthma Autoimmune disorder Diabetes Hypertension Kidney disease Mental disorder Mother Arthritis Blood clot in vein Diabetes Mental disorder Hyperlipidemia Grandmother Cancer Melanoma Grandfather Myocardial infarction Heart disease Hyperlipidemia Surgical History History of adenoidectomy S/P endometrial ablation Social History Smoking Status: Former smoker alcohol intake: never substance use type: does not use what type of physical activity do you participate in: none ROS Constitutional Constitutional: Reports fatigue and weakness; Denies anorexia, change in weight, chills, fever(s), malaise, night sweats or other Eyes Eyes: Denies blurry vision, change in eye color, change in vision, discharge from eye(s), double vision, erythema, eye pain, loss of vision or other ENT HEENT: Denies abnormal hearing, dysphagia, ear pain, epistaxis, headache(s), hearing loss, nasal congestion, nasal discharge, post nasal drip, sinus pressure, sore throat or other Cardiovascular Cardiovascular: Denies chest pain, claudication, dyspnea on exertion, edema, lightheadedness, orthopnea, palpitations, paroxysmal nocturnal dyspnea, rapid heart rate, syncope or other Respiratory/Chest Respiratory/Chest: Denies cough, dyspnea, excessive phlegm production, he moptysis, productive cough, shortness of breath at rest, shortness of breath with exertion, wheezing or other Gastrointestinal Gastrointestinal: Reports abdominal pain; Denies coffee ground emesis, const ipation, diarrhea, dyspepsia, hematemesis, hematochezia, loose stools, melena, nausea, vomiting or other Genitourinary Genitourinary: Denies burning urination, difficulty urinating, dysuria, hematuria, nocturia, urinary frequency, urinary hesitancy, urinary incontinence, urinary urgency or other Musculoskeletal Musculoskeletal: Denies arthralgias, back pain, joint pain, joint stiffness, joint swelling, myalgias, neck pain or other Neurologic Neurologic: Denies abnormal gait, abnormal speech, confusion, disequilibrium, dizziness, focal weakness, headache(s), numbness, paresthesias, seizure-like activity, seizures, syncope, tingling, tremor(s) or other Psychiatric Psychiatric: Denies anxiety, depression, homicidal ideation, suicidal ideation or other Endocrine Endocrinology: Denies change in body appearance, cold intolerance, excessive sweating, heat intolerance, polydipsia, polyuria or other Vital Signs Vital Signs Vital Signs: 09/12/21 15:23 09/12/21 15:56 09/12/21 17:45 Temperature 97.6 F L Temperature Source Temporal Pulse Rate 99 67 Respiratory Rate 17 18 Respiratory Effort Normal Non-Labored Respiratory Pattern Normal Blood Pressure 185/93 H 174/87 H Blood Pressure Mean 123 116 Pulse Ox 95 98 Oxygen Delivery Method Room Air Room Air 09/12/21 17:54 Temperature 97.6 F L Temperature Source Temporal Pulse Rate 73 Respiratory Rate 17 Respiratory Effort Respiratory Pattern Blood Pressure 163/101 H Blood Pressure Mean 121 Pulse Ox 99 Oxygen Delivery Method Room Air Weight Weight: 268 lb 4.841 oz Body Mass Index (BMI) 46.0 Physical Exam Const alert and oriented x3 General Appearance: cooperative HEENT normocephalic, head/scalp atraumatic and hearing grossly normal bilaterally Eyes PERRL, EOMs intact bilaterally and conjunctivae normal Neck no lymphadenopathy, supple and no JVD Resp normal respiratory effort, no retractions and no use of accessory muscles Cardio regular rate, regular rhythm and no JVD GI normal to inspection, nondistended, normoactive bowel sounds and soft to palpation Extremity normal to inspection and full ROM Skin no rashes or lesions noted and no wounds Neuro CN's II-XII intact bilaterally Psych affect normal Results Lab / Micro Data Result Diagrams: 09/12/21 15:59 09/12/21 15:59 Labs: Laboratory Results - last 24 hr 09/12/21 15:59: WBC 10.5, RBC 4.07 L, Hgb 12.4, Hct 35.1 L, MCV 86.2, MCH 30.5, MCHC 35.3, RDW Std Deviation 38.9, RDW Coeff of Alex 12.4, Plt Count 331, MPV 9.7, Immature Gran % (Auto) 0.300, Neut % (Auto) 75.6 H, Lymph % (Auto) 17.1 L, [place] % (Auto) 5.3, Eos % (Auto) 1.3, Baso % (Auto) 0.4, Absolute Neuts (auto) 7.9 H, Absolute Lymphs (auto) 1.79, Nucleated RBC % 0 09/12/21 15:59: Sodium 136, Potassium 3.0 L, Chloride 93 L, Carbon Dioxide 32.0, Anion Gap 11, BUN 61 H, Creatinine 5.08 H, Estim Creat Clear Calc 11.57, Est GFR (MDRD) Af Amer 12 L, Est GFR (MDRD) Non-Af 10 L, BUN/Creatinine Ratio 12.0, Glucose 130 H, Calcium 14.4 H*, Magnesium 2.8 H, Total Bilirubin 0.50, AST 28, ALT 35, Alkaline Phosphatase 73, Total Protein 8.4 H, Albumin 4.0, Globulin 4.4 H, Albumin/Globulin Ratio 0.9, TSH 3.74 09/12/21 17:14: Urine Color Yellow, Urine Clarity Clear, Urine pH 8.0, Ur Specific [place] 1.015, Urine Protein 30 H, Urine Glucose (UA) Normal, Urine Ketones Negative, Urine Occult Blood 10 H, Urine Nitrite Negative, Urine Bilirubin Negative, Urine Urobilinogen Normal, Ur Leukocyte Esterase 100 H, Urine RBC 0-5 SEEN, Urine WBC 5-10 SEEN, Ur Squamous Epith Cells 0 SEEN, Urine Bacteria 0 SEEN, Urine Mucus 0 SEEN Assessment & Plan Assessment/Plan (1) Hypercalcemia: (2) Autoimmune hypoparathyroidism: PLAN: Patient is a 50-year-old female who presents to [facility] on 09/12/2021 with a chief complaint of weakness with abnormal lab. Patient will be admitted administration of IV fluids for hypercalcemia. 1) hypercalcemia Calcium 14.4 on admission. Patient's drill operator pneumatic, Dr. Robbie Benítez, was contacted who believes that patient's high calcium is the result of her jeffrey citriol and calcium administration as well as her being on hydrochlorothiazide. Patient follows with Dr. Benítez for autoimmune hypoparathyroidism. Dr. Robbie Benítez does not believe that placing patient on Aredia is indicated at this time. Plan; admit to [facility], initiate IV fluids at 100 mils per hour, stop calcitriol and calcium administration, hold hydrochlorothiazide, continue to monitor calcium, CBC and CMP in a.m, PT/OT eval, magnesium in a.m. 2) autoimmune hypoparathyroidism Patient on calcium and calcitriol supplementation. Follows with Dr. Benítez as above. 3) hypokalemia Potassium currently 3.0, replace, continue to monitor BMP. 4) AYLA Creatinine currently 5.08. Likely secondary to dehydration in the setting of poor oral intake. We will hold nephrotoxic's and initiate IV fluids as above. Continue to monitor BMP. 5) HTN Hold home losartan and hydrochlorothiazide. Initiate Norvasc. 6) depression/anxiety Continue Zoloft. Hold clonazepam. DVT prophylaxis - low risk, not indicated. Patient seen by Eric Overton PA-C, under the supervision of Dr. Marshall. Time spent on patient care: 25 minutes. Documented by User: Dr. Rodo Marshall, 09/12/21 19:11 HPI - General General Date of Admission: 09/12/21 [facility] Medical History Anxiety Arthritis Back pain Back problem Breast cyst Carpal tunnel syndrome Chronic headaches Essential hypertension Former smoker Gallstones GI problem History of anemia HTN (hypertension) Hx of fracture Hypoparathyroidism Low calcium levels Obesity Osteoarthritis Seasonal allergies Vitamin D deficiency Home Medications losartan 50 mg tablet 100 mg PO DAILY 10/14/19 [History Last Taken 09/12/21] sertraline 100 mg tablet 150 mg PO DAILY tab 02/14/19 [History Last Taken 09/12/21] ascorbate calcium (vitamin C) 500 mg tablet 500 mg PO BID 09/28/20 [History Last Taken 09/12/21] clonazepam 0.25 mg disintegrating tablet 0.5 mg PO DAILY PRN tab 09/28/20 [History Last Taken 09/10/21] cyclobenzaprine 10 mg tablet 10 mg PO DAILY PRN tab 09/28/20 [History Last Taken Unknown] mirtazapine 30 mg tablet 30 mg PO QHS tab 09/28/20 [History Last Taken 09/11/21] calcitriol 0.5 mcg capsule 0.5 mcg PO TID #270 cap 08/23/21 [Rx Last Taken 09/11/21] hydrochlorothiazide 25 mg tablet 25 mg PO DAILY #90 tab 08/23/21 [Rx Last Taken 09/11/21] calcium 600 mg PO BID 09/12/21 [History Last Taken 09/11/21] Allergy/AdvReac Type Severity Reaction Status Date / Time adhesive tape Allergy Intermediate Rash Verified 09/12/21 15:22 Penicillins Allergy Shortness Verified 09/12/21 15:22 of breath prednisone AdvReac Mild Other Verified 09/12/21 15:22 citalopram [From Celexa] AdvReac Other Verified 09/12/21 15:22 lactose AdvReac Diarrhea Verified 09/12/21 15:22 Family History Brother Asthma Autoimmune disorder Diabetes Hypertension Kidney disease Mental disorder Mother Arthritis Blood clot in vein Diabetes Mental disorder Hyperlipidemia Grandmother Cancer Melanoma Grandfather Myocardial infarction Heart disease Hyperlipidemia Surgical History History of adenoidectomy S/P endometrial ablation Social History Smoking Status: Former smoker alcohol intake: never substance use type: does not use what type of physical activity do you participate in: none Results Lab / Micro Data Result Diagrams: 09/12/21 15:59 09/12/21 15:59 Charges/Coding Addendum Addendum: Patient was seen and examined today independently of Eric Overton, she had outpatient lab performed which was abnormal and she was referred to the emergency room due to abnormal creatinine and hypercalcemia. Patient sees an drill operator pneumatic for autoimmune hypoparathyroidism, she takes vitamin D supplements as an outpatient. Patient states she has not been drinking or eating well for the last several days because she has not felt well. Patient denies any diarrhea or nausea and vomiting. On examination she appeared in good health and spirits, she does not appear to be in any distress. Vital signs as documented. Skin warm and dry and without overt rashes. Neck without JVD, thyroid appears normal, trachea is midline, neck is supple. Lungs clear, normal air movement was noted. Heart exam notable for regular rhythm, normal sounds and absence of murmurs, rubs or gallops. Abdomen unremarkable and without evidence of organomegaly, masses, or abdominal aortic enlargement, bowel sounds are present in all 4 quadrants, no abdominal tenderness was noted. Extremities nonedematous, no cyanosis was noted, no clubbing was noted. Neuro: Cranial nerves II through XII are grossly intact, no focal motor deficits were noted, sensation to light touch and pinprick is intact, motor exam 5/5 throughout. Psych: Patient is alert and oriented x3, she does not appear anxious or depressed, she does not appear agitated. Patient's labs were abnormal-her potassium was 3, creatinine was 5.08, BUN was 61, magnesium was 2.8, and potassium was 14.4. Patient's urinalysis was unremarkable. Impression: #1 hypercalcemia-probably secondary to vitamin D supplementation, calcium supplementation, and hydrochlorothiazide usage-patient will be admitted to [facility] telemetry, she will be placed on IV fluids and her labs will be monitored. I talked briefly with the patient's drill operator pneumatic by phone today, she did not recommend administration of bisphosphonate. #2 acute kidney injury-patient will be given IV fluids, labs will be monitored #3 essential hypertension-I have decided to place the patient on Norvasc, due to her acute kidney injury, her losartan will be held, hydrochlorothiazide will be stopped due to her hypercalcemia #4 autoimmune hypoparathyroidism-patient follows up with Dr. Benítez as an outpatient #5 hypokalemia-I have given the patient oral potassium supplementation, labs will be rechecked tomorrow I have reviewed Eric Overton's history and physical including his medical assessment and plan of care and with the above additions endorse it. Total clinical time spent by myself addressing the patient's medical issues, reviewing her data, and collaborating with her care team: 45 minutes Visit Charges Inpatient E&M: 59542 Init Hosp L3
[2021-09-12 18:31] VITALS: BP 191/99; PULSE 70; RESP 16; TEMP 37.1; O2SAT 100
[2021-09-12 18:32] VITALS: BMI 45.5
[2021-09-12] MEDS: 0.9% Normal Saline 1,000 ML 150 ML IV (19:02)
[2021-09-12] MEDS: Potassium Chloride Oral Tablet 20 MEQ 40 MEQ PO (19:03)
[2021-09-12] MEDS: amLODIPine 5 MG Tablet PO (19:03)
[2021-09-12 20:17] VITALS: BP 162/72; PULSE 62; RESP 18; TEMP 36.6; O2SAT 97
[2021-09-12] MEDS: clonazePAM 0.5 MG Tablet PO (20:32)
[2021-09-12] MEDS: Mirtazapine 30 MG Tablet PO (20:32)
[2021-09-13] VITALS (11 sets, daily range): BP systolic 156–181; BP diastolic 73–98; PULSE 58–79; RESP 18; TEMP 36.4–37.3; O2SAT 94–100
[2021-09-13] MEDS: 0.9% Normal Saline 1,000 ML 150 ML IV ×4 (02:16→18:49)
--- NOTE | 2021-09-13 05:22 | NURSING ---
Patient heart rate 40s when sleeping when wakened heart rate rebounds to 60s patient asymptomatic Dr. Molina notified
[2021-09-13 06:36] LABS: BUN 60 mg/dL (7-18); Creatinine, Serum 4.84 mg/dL (0.55-1.02); Glucose 140 mg/dL (74-106)
[2021-09-13 06:37] LABS: ALB/GLOB Ratio 0.9 RATIO (0.9-2.4); AST(SGOT) 23 U/L (15-37); Alanine Aminotransfer ALT/SGPT 31 U/L (13-56); Albumin, Serum 3.3 g/dL (3.2-5.0); Alkaline Phosphatase 58 U/L (45-117); Anion Gap 7 (5-15); BUN/Creat Ratio 12.4 RATIO (10-20); Calcium,Total 12.2 mg/dL (8.5-10.1); Chloride 101 mmol/L (98-107); EST Glomerular Filtration Rate 10 mL/min (>60); Est Glom Filt Rate - Afr Amer 12 mL/min (>60); Estimated Creatinine Clearance 12.14 ml/min; Globulin 3.6 g/dL (2.2-4.2); Magnesium 2.6 mg/dL (1.6-2.6); Protein, Total 6.9 g/dL (6.4-8.2); Sodium Level 139 mmol/L (136-145)
--- NOTE | 2021-09-13 07:13 | US_ITS ---
STUDY: RENAL ULTRASOUND - COMPLETE REASON FOR EXAM: Female, 50 years old. AYLA TECHNIQUE: Ultrasound evaluation of the kidneys was performed with real-time and static [place]-scale imaging. COMPARISON: None. FINDINGS: RIGHT KIDNEY: Normal location of the right kidney, which is normal in size. The right kidney measures cm. There is a normal cortex of the right kidney. The renal cortex measures cm. There is no right renal mass or cyst. There are no right renal calculi. There is no right hydronephrosis. DISTAL RIGHT URETER: There is non-visualization of the distal right ureter. There is no demonstrated right ureterovesical junction calculus. There is a visualized right ureteral jet. LEFT KIDNEY: Normal location of the left kidney, which is normal in size. The left kidney measures cm. There is a normal cortex of the left kidney. The renal cortex measures cm. There is no left renal mass or cyst. There are no left renal calculi. There is no left hydronephrosis. DISTAL LEFT URETER: There is non-visualization of the distal left ureter. There is no demonstrated left ureterovesical junction calculus. There is a visualized left ureteral jet. AORTA: There is no elongation o STUDY: RENAL ULTRASOUND - COMPLETE REASON FOR EXAM: Female, 50 years old. AYLA TECHNIQUE: Ultrasound evaluation of the kidneys was performed with real-time and static [place]-scale imaging. COMPARISON: None. FINDINGS: RIGHT KIDNEY: Normal location of the right kidney, which is normal in size. The right kidney measures 11.8 x 5.9 cm. The renal cortex measures in cm: 1.7. There is a normal cortex of the right kidney. There is no right renal mass or cyst. There are no right renal calculi. There is no right hydronephrosis. DISTAL RIGHT URETER: There is non-visualization of the distal right ureter. There is no demonstrated right ureterovesical junction calculus. There is no demonstrated right ureteral jet. LEFT KIDNEY: Normal location of the left kidney, which is normal in size. The left kidney measures 12.9 x 5.4 cm. The renal cortex measures in cm: 2.1. There is a normal cortex of the left kidney. There is no left renal mass or cyst. There are no left renal calculi. There is no left hydronephrosis. DISTAL LEFT URETER: There is non-visualization of the distal left ureter. There is no demonstrated left ureterovesical junction calculus. There is no demonstrated left ureteral jet. AORTA: There is obscuration of the abdominal aorta by overlying bowel gas I.V.C.: It is not visualized. There is too much overlying bowel gas. BLADDER: There is a normal wall thickness of the distended urinary bladder. There is no demonstrated mass within the urinary bladder. There are no demonstrated bladder calculi. IMPRESSION: No acute findings of the ultrasound of the kidneys and urinary bladder. Note: Renal size measurements and size measurements of other organs etc may vary depending on modality and dumping machine operator dependent variations in measurements. (i.e. Measuring a kidney on an US does not correlate with an exact same measurement on a CT.) r tortuosity of the abdominal aorta. Aorta measures: Proximal cm. Middle cm. Distal cm. Aorta measure transversely: Proximal cm. Middle cm. Distal cm. There is no demonstrated aneurysm.. I.V.C.: The IVC is patent. BLADDER: The distended urinary bladder has a volume of ml. The empty urinary bladder has a volume of ml. There is a normal wall thickness of the distended urinary bladder. There is no demonstrated mass within the urinary bladder. There are no demonstrated bladder calculi. US/Kidney and Bladder IMPRESSION: Normal ultrasound of the kidneys and urinary bladder. Electronically Signed: Afshin Darden MD at 18:16 EDT ,
[2021-09-13] MEDS: Potassium Chloride Oral Tablet 20 MEQ 60 MEQ PO (09:42)
--- NOTE | 2021-09-13 09:58 | CASEMGMT ---
SRINI FELIPE Assessment: Face to Face with pt for initial transition planning/care coordination assessment. RN DESTINEE introduced self and role at [facility], pt voices understanding and consents to assessment. Pt is A/O x4 and answers all questions appropriately at this time. Pt lying in bed in no distress. Care providers, pharmacy, and demographics verified/updated. Admitting Dx: hypercalcemia, AYLA PCP:Dany Specialists:alicia Benítez; tenisha Harrison Preferred Pharmacy: [facility] Insurance: [employer] Mortgage Lenders Direct Prescription Benefit: yes LW/HPOA: Pt denies having a LW/DPOA and denies need for info regarding AD. LNOK: Radha Ibrahim, mother; Han Long, son Living Arrangements: Pt lives with mother and son in a two story house with one step to enter. Pt reports she is I in ADL's. Transportation: Pt drives self and denies concerns with transportation. DME/HHC/SNF: Pt has no DME in the home, no hx of HHC or SNF stays. Pt states no concerns with going home at time of dc. Pt states no further concerns/needs. CM to follow. Advised pt to ask CM if any further question/concerns/needs arise, voices understanding. Pt Goal: Home Plan: Home
[2021-09-13] MEDS: Sertraline 100 MG Tablet 150 MG PO (10:46)
[2021-09-13] MEDS: amLODIPine 5 MG Tablet PO (10:46)
--- NOTE | 2021-09-13 12:07 | PN.HOSP_ITS ---
Documented by User: Eric COPELAND 09/13/21 12:27 Subjective Subjective Patient is a 50-year-old comfortably resting in bed, alert and oriented x3. Patient reports feeling a little tired and anxious about her occasional low heart rate. Otherwise, without complaints, does not appear in acute distress. Objective Data Objective Data Vital Signs: Vital Signs Temp Pulse Resp BP Pulse Ox 98.2 F 58 L 18 156/75 H 96 09/13/21 08:21 09/13/21 08:26 09/13/21 08:21 09/13/21 08:21 09/13/21 08:21 Oxygen Delivery Method Room Air Weight: 269 lb 6.4 oz Body Mass Index (BMI) 45.5 Intake & Output: Intake and Output for Last 24 Hours 09/11/21 09/12/21 09/13/21 23:59 23:59 23:59 Intake Total 1016.67 / 1016.67 2440.0 / 2440.0 Balance 1016.67 / 1016.67 2440.0 / 2440.0 Lab / Micro Data Result Diagrams: 09/12/21 15:59 09/13/21 05:56 Labs: Laboratory Results - last 24 hr 09/12/21 15:59: WBC 10.5, RBC 4.07 L, Hgb 12.4, Hct 35.1 L, MCV 86.2, MCH 30.5, MCHC 35.3, RDW Std Deviation 38.9, RDW Coeff of Alex 12.4, Plt Count 331, MPV 9.7, Immature Gran % (Auto) 0.300, Neut % (Auto) 75.6 H, Lymph % (Auto) 17.1 L, Dorado % (Auto) 5.3, Eos % (Auto) 1.3, Baso % (Auto) 0.4, Absolute Neuts (auto) 7.9 H, Absolute Lymphs (auto) 1.79, Nucleated RBC % 0 09/12/21 15:59: Sodium 136, Potassium 3.0 L, Chloride 93 L, Carbon Dioxide 32.0, Anion Gap 11, BUN 61 H, Creatinine 5.08 H, Estim Creat Clear Calc 11.57, Est GFR (MDRD) Af Amer 12 L, Est GFR (MDRD) Non-Af 10 L, BUN/Creatinine Ratio 12.0, Glucose 130 H, Calcium 14.4 H*, Magnesium 2.8 H, Total Bilirubin 0.50, AST 28, ALT 35, Alkaline Phosphatase 73, Total Protein 8.4 H, Albumin 4.0, Globulin 4.4 H, Albumin/Globulin Ratio 0.9, TSH 3.74 09/12/21 17:14: Urine Color Yellow, Urine Clarity Clear, Urine pH 8.0, Ur Specific Dows 1.015, Urine Protein 30 H, Urine Glucose (UA) Normal, Urine Ketones Negative, Urine Occult Blood 10 H, Urine Nitrite Negative, Urine Bilirubin Negative, Urine Urobilinogen Normal, Ur Leukocyte Esterase 100 H, Urine RBC 0-5 SEEN, Urine WBC 5-10 SEEN, Ur Squamous Epith Cells 0 SEEN, Urine Bacteria 0 SEEN, Urine Mucus 0 SEEN 09/13/21 05:56: Sodium 139, Potassium 3.0 L, Chloride 101, Carbon Dioxide 31.0, Anion Gap 7, BUN 60 H, Creatinine 4.84 H, Estim Creat Clear Calc 12.14, Est GFR (MDRD) Af Amer 12 L, Est GFR (MDRD) Non-Af 10 L, BUN/Creatinine Ratio 12.4, Glucose 140 H, Calcium 12.2 H, Magnesium 2.6, Total Bilirubin 0.40, AST 23, ALT 31, Alkaline Phosphatase 58, Total Protein 6.9, Albumin 3.3, Globulin 3.6, Albumin/Globulin Ratio 0.9 Physical Exam Const alert, oriented x3 and no apparent distress HEENT head/scalp atraumatic and moist oral mucous membranes Head and Scalp: normocephalic Eyes PERRL, EOMs intact bilaterally and conjunctivae normal Neck no lymphadenopathy, supple and no JVD Resp normal respiratory effort, no retractions and no use of accessory muscles Cardio regular rate, regular rhythm and no JVD GI normal to inspection, nondistended, normoactive bowel sounds, soft to palpation and non-tender Extremity normal to inspection, full ROM and no clubbing, cyanosis or edema Skin no rashes or lesions noted, no wounds and skin turgor normal Neuro CN's II-XII intact bilaterally Psych affect normal Assessment & Plan Assessment/Plan (1) Hypercalcemia: (2) Autoimmune hypoparathyroidism: PLAN: Day 1 Discharge planning: To discharge home when medically ready 1) hypercalcemia Calcium improved to 12.2. Patient's sexual health physician, Dr. Robbie Benítez, was contacted who believes that patient's high calcium is the result of her calcitriol and calcium administration as well as her being on hydrochlorothiazide. Given that her calcium has improved, will continue IV fluids, continue to hold calcitriol and patient's hydrochlorothiazide and continue to trend. 2) autoimmune hypoparathyroidism Patient on calcium and calcitriol supplementation. Follows with Dr. Benítez as above. 3) hypokalemia Potassium currently 3.0, replace, continue to monitor BMP. 4) AYLA Creatinine currently 4.84, improved from admission. LIkely secondary to dehydration in the setting of poor oral intake. We will hold nephrotoxic's and initiate IV fluids as above. Kidney and bladder ultrasound ordered. Continue to monitor BMP. 5) bradycardia Patient with observed bradycardia overnight. Without any lightheadedness or dizziness, although patient does seem to be anxious about her low heart rate. We will continue to monitor for now. 6) HTN Hold home losartan and hydrochlorothiazide. Continue Norvasc. 7) depression/anxiety Continue Zoloft and Clonazepam. DVT prophylaxis - low risk, not indicated. Patient seen by Eric Overton PA-C, under the supervision of Dr. Judge. Time spent on patient care: 10 minutes. Documented by User: Dr. Kofi Judge, 09/13/21 13:29 Subjective Subjective Feels well. Denies any new complaints. Objective Data Lab / Micro Data Result Diagrams: 09/12/21 15:59 09/13/21 05:56 Physical Exam Const alert and no apparent distress Resp normal respiratory effort, no retractions, no use of accessory muscles and clear to auscultation bilaterally Cardio regular rate, regular rhythm, S1 normal heart sound and S2 normal heart sound GI normal to inspection, nondistended, normoactive bowel sounds, soft to palpation, non-tender and non-distended Extremity normal to inspection Psych affect normal Assessment & Plan Assessment/Plan (1) Hypercalcemia: (2) Acute kidney injury: (3) Acute hypokalemia: PLAN: Patient seen and examined independently. Data and vitals reviewed. I agree with the above note by the physician library services assistant. 1. Hypercalcemia Ongoing but improved. Due to calcitriol and calcium. Complicated by acute kidney injury. Continue with IV fluids Hold off on diuretics given acute kidney injury 2. Acute kidney injury Suspect prerenal or commendation of ATN Continue with IV fluids Check urine studies 3. Autoimmune hypoparathyroidism Calcium and calcitriol supplementation currently being held given above Follow-up with Dr. Benítez of endocrinology as outpatient 4. Hypokalemia replace Greater than 20 minutes discussing and evaluating pt, reviewing data and vitals. Charges/Coding Visit Charges Inpatient E&M: 83648 Subs Hosp L2
[2021-09-13] MEDS: Mirtazapine 30 MG Tablet PO (21:17)
[2021-09-13] MEDS: clonazePAM 0.5 MG Tablet PO (21:17)
[2021-09-13] MEDS: hydrALAZINE 20 MG/ML Vial 5 MG IV (22:43)
[2021-09-13] MEDS: 0.9% Saline Lock 10 ML Syringe IV (22:44)
[2021-09-14] MEDS: 0.9% Normal Saline 1,000 ML 150 ML IV ×2 (01:32→06:39)
[2021-09-14 01:55] VITALS: PULSE 57
[2021-09-14 05:08] VITALS: PULSE 59
[2021-09-14 05:32] VITALS: BP 150/85; PULSE 55; RESP 18; TEMP 36.6; O2SAT 100
[2021-09-14 06:09] LABS: ALB/GLOB Ratio 0.9 RATIO (0.9-2.4); AST(SGOT) 25 U/L (15-37); Alanine Aminotransfer ALT/SGPT 32 U/L (13-56); Albumin, Serum 3.5 g/dL (3.2-5.0); Alkaline Phosphatase 56 U/L (45-117); Anion Gap 5 (5-15); BUN 49 mg/dL (7-18); BUN/Creat Ratio 10.9 RATIO (10-20); Calcium,Total 11.3 mg/dL (8.5-10.1); Chloride 107 mmol/L (98-107); Creatinine, Serum 4.49 mg/dL (0.55-1.02); EST Glomerular Filtration Rate 11 mL/min (>60); Est Glom Filt Rate - Afr Amer 13 mL/min (>60); Estimated Creatinine Clearance 13.09 ml/min; Globulin 3.8 g/dL (2.2-4.2); Glucose 136 mg/dL (74-106); Potassium 3.5 mmol/L (3.5-5.1); Protein, Total 7.3 g/dL (6.4-8.2); Sodium Level 141 mmol/L (136-145)
[2021-09-14 07:30] VITALS: PULSE 65
[2021-09-14] MEDS: Sertraline 100 MG Tablet 150 MG PO (08:14)
[2021-09-14] MEDS: amLODIPine 5 MG Tablet PO (08:14)
[2021-09-14 09:30] VITALS: BP 155/78; PULSE 65; RESP 18; TEMP 36.7; O2SAT 96
--- NOTE | 2021-09-14 10:50 | PN.HOSP_ITS ---
Documented by User: Eric COPELAND 09/14/21 10:59 Subjective Subjective Patient is a 50-year-old female comfortably resting in bed, alert and orient x3. Patient is anxious about being discharged from the hospital as she reports that she is not sleeping well. Understands and is agreeable to staying. Objective Data Objective Data Vital Signs: Vital Signs Temp Pulse Resp BP Pulse Ox 97.9 F 55 L 18 150/85 H 100 09/14/21 05:32 09/14/21 05:32 09/14/21 05:32 09/14/21 05:32 09/14/21 05:32 Oxygen Delivery Method Room Air Weight: 269 lb 6.4 oz Body Mass Index (BMI) 45.5 Intake & Output: Intake and Output for Last 24 Hours 09/12/21 09/13/21 09/14/21 23:59 23:59 23:59 Intake Total 1016.67 / 1016.67 4540.0 / 4540.0 1966. Output Total 500 / 500 Balance 1016.67 / 1016.67 4040.0 / 4040.0 Lab / Micro Data Result Diagrams: 09/12/21 15:59 09/14/21 05:13 Labs: Laboratory Results - last 24 hr 09/13/21 15:42: Urine Creatinine 39.60 09/14/21 05:13: Sodium 141, Potassium 3.5, Chloride 107, Carbon Dioxide 29.0, Anion Gap 5, BUN 49 H, Creatinine 4.49 H, Estim Creat Clear Calc 13.09, Est GFR (MDRD) Af Amer 13 L, Est GFR (MDRD) Non-Af 11 L, BUN/Creatinine Ratio 10.9, Glucose 136 H, Calcium 11.3 H, Total Bilirubin 0.30, AST 25, ALT 32, Alkaline Phosphatase 56, Total Protein 7.3, Albumin 3.5, Globulin 3.8, Albumin/Globulin Ratio 0.9 Micro: Microbiology 09/12/21 17:14 Urine, Clean Catch Urine Culture - Preliminary Culture exhibits no growth. Radiography Diagnostic Testing: Radiology Impression Renal Ultrasound 09/13/21 07:13 IMPRESSION: Normal ultrasound of the kidneys and urinary bladder. Electronically Signed: Afshin Darden MD at 18:16 EDT , Physical Exam Const alert, oriented x3 and no apparent distress HEENT head/scalp atraumatic and moist oral mucous membranes Head and Scalp: normocephalic Eyes PERRL, EOMs intact bilaterally and conjunctivae normal Neck no lymphadenopathy, supple and no JVD Resp normal respiratory effort, no retractions and no use of accessory muscles Cardio regular rhythm and no JVD Rate: bradycardia GI normal to inspection, nondistended, normoactive bowel sounds and soft to palpation Extremity normal to inspection, full ROM and no clubbing, cyanosis or edema Skin no rashes or lesions noted, no wounds and skin turgor normal Neuro CN's II-XII intact bilaterally Psych affect normal Assessment & Plan Assessment/Plan (1) Hypercalcemia: (2) Acute kidney injury: PLAN: Day 2 Discharge planning: To discharge home when medically ready 1) hypercalcemia Calcium improved to 11.3. Patient's bus and trolley dispatcher, Dr. Robbie Benítez, was contacted on admission who believes that patient's high calcium is the result of her calcitriol and calcium administration as well as her being on hydrochlorothiazide. Given that her calcium has improved, will continue IV fluids, continue to hold calcitriol and patient's hydrochlorothiazide and continue to trend. 2) autoimmune hypoparathyroidism Patient on calcium and calcitriol supplementation. Follows with Dr. Benítez as above. 3) hypokalemia Resolved, potassium currently 3.5. We will continue to monitor. 4) AYLA Creatinine currently 4.49, improved from admission. Kidney and bladder ultrasound normal. We will hold nephrotoxic's and continue IV fluids as above. Kidney and bladder ultrasound ordered. Continue to monitor BMP. 5) bradycardia Patient with observed bradycardia overnight. Without any lightheadedness or dizziness, although patient does seem to be anxious about her low heart rate. We will continue to monitor for now. 6) HTN Hold home losartan and hydrochlorothiazide. Continue Norvasc. 7) depression/anxiety Continue Zoloft and Clonazepam. DVT prophylaxis - low risk, not indicated. Patient seen by Eric Overton PA-C, under the supervision of Dr. Judge. Time spent on patient care: 8 minutes. Documented by User: Dr. Kofi Judge DO 09/14/21 12:19 Objective Data Lab / Micro Data Result Diagrams: 09/12/21 15:59 09/14/21 05:13 Assessment & Plan Assessment/Plan (1) Acute kidney injury: PLAN: Patient seen and examined independently. Data and vitals reviewed. I agree with the above note by the physician ophthalmic assistant. 1. Hypercalcemia Ongoing but improved. Due to calcitriol and calcium. Complicated by acute kidney injury. Hold off on diuretics given acute kidney injury 2. Acute kidney injury Suspect prerenal or commendation of ATN 3. Autoimmune hypoparathyroidism Calcium and calcitriol supplementation currently being held given above Follow-up with Dr. Benítez of endocrinology as outpatient 4. Hypokalemia replace Patient very upset overnight and wanted to go home. Patient said that she did not sleep well last night. Explained to patient that I recommend that she stay but encouraged her to continue with fluids as well as to follow-up next week and have lab work done next week to ensure that her calcium and creatinine are improving. Also advised that she follow-up with nephrology to ensure that she has improvement of her kidney function. She expressed understanding and states that she will comply.
--- NOTE | 2021-09-14 11:22 | DCINST_ITS ---
Discharge Instructions Diet Discharge Diet: No restrictions Activity Discharge Activity: Return to Normal Activity Weight Bearing Status: Weight bearing as tolerated Dressing / Incision Call your doctor if you observe: Fever of 101 or Higher, Numbness or Tingling, Shortness of breath, Dizziness, Chest pain, Increased palpitations (irregular heartbeat) and Calf discomfort Follow Up Care Please Follow Up With: Primary care provider When: Within the next two weeks. Test Results: Test results from this visit will be discussed in further detail at your follow-up appointment, if applicable. Discharge Plan Admission Admit Date/Time: 09/12/21 17:57 Primary Reason for Your Visit: Abnormal labs Attending Provider: Kofi Judge Primary Care Provider: Brendon Saenz Consulting Providers: Rodo Marshall Additional Instructions / Restrictions: * Continue taking Amlodipine while your Hydrochlorothiazide is on hold. * Calcitriol, Calcium and Hydrochlorothiazide have been held on your discharge. Follow up with Dr. Benítez about when to resume these medications. Discharge Orders/Prescriptions Prescriptions: New amlodipine 10 mg tablet 10 mg PO DAILY Qty: 30 RF: 0 Continued losartan 50 mg tablet 100 mg PO DAILY RF: 0 sertraline [Zoloft] 100 mg tablet 150 mg PO DAILY RF: 0 clonazepam 0.25 mg tablet,disintegrating 0.5 mg PO DAILY PRN (Reason: Anxiety) RF: 0 mirtazapine 30 mg tablet 30 mg PO QHS RF: 0 ascorbate calcium (vitamin C) 500 mg tablet 500 mg PO BID RF: 0 cyclobenzaprine 10 mg tablet 10 mg PO DAILY PRN (Reason: muscle spasms) RF: 0 Held calcitriol 0.5 mcg capsule 0.5 mcg PO TID Qty: 270 RF: 1 Hold Instructions: Hold until otherwise instructed by your [employer]. hydrochlorothiazide 25 mg tablet 25 mg PO DAILY Qty: 90 RF: 2 Hold Instructions: Hold until otherwise instructed by your [employer]. calcium 600 mg Capsule 600 mg PO BID RF: 0 Hold Instructions: Hold until otherwise instructed by your [employer]. Referrals / Follow Up: Marques Arredondo MD [STAFF PHYSICIAN] - Within 2 Weeks Brendon Saenz DO [Primary Care Provider] - Within 2 Weeks Markos Benítez MD [STAFF PHYSICIAN] - Within 1 Week Disposition Disposition (needs filled in before D/C Order can be placed): Home, Self Care
--- NOTE | 2021-09-14 15:06 | DS.PCM_ITS ---
Documented by User: Eric COPELAND 09/14/21 15:19 Providers Date of Admission: 09/12/21 Date of Discharge: 09/14/21 Primary Care Physician: Dr. Brendon Saenz DO Reason For Visit: HYPERCALCEMIA, AYLA Diagnosis Discharge Diagnosis (1) Acute kidney injury: Status: Acute Code(s): N17.9 - Acute kidney failure, unspecified (2) Hypercalcemia: Status: Acute Code(s): E83.52 - Hypercalcemia (3) Acute hypokalemia: Status: Acute Code(s): E87.6 - Hypokalemia Medications at Discharge Home Medications losartan 50 mg tablet 100 mg PO DAILY 02/14/19 sertraline 100 mg tablet 150 mg PO DAILY tab 02/14/19 ascorbate calcium (vitamin C) 500 mg tablet 500 mg PO BID 09/28/20 clonazepam 0.25 mg disintegrating tablet 0.5 mg PO DAILY PRN tab 09/28/20 cyclobenzaprine 10 mg tablet 10 mg PO DAILY PRN tab 09/28/20 mirtazapine 30 mg tablet 30 mg PO QHS tab 09/28/20 calcitriol 0.5 mcg capsule 0.5 mcg PO TID #270 cap 08/23/21 hydrochlorothiazide 25 mg tablet 25 mg PO DAILY #90 tab 08/23/21 calcium 600 mg PO BID 09/12/21 amlodipine 10 mg PO DAILY #30 tab 09/14/21 Hospital Course Summary of Care Provided Minutes Spent on Discharge: 20 Hospital Course: Patient is a 50-year-old who was admitted to [facility] on 09/12/2021 for evaluation and management of hypercalcemia and lethargy. Hospital course and management as below. 1) hypercalcemia Calcium improved to 11.3. Patient's prepress specialist, Dr. Robbie Benítez, was contacted on admission who believes that patient's high calcium is the result of her calcitriol and calcium administration as well as her being on h ydrochlorothiazide. Patient was advised to remain admitted overnight for continued IV fluid administration and monitoring of labs, however patient reported a desire to want to return home as she was not sleeping well and reports this is made her lethargy worse. Patient was advised of the risks of leaving before her entire course of treatment was complete, patient acknowledged all and was okay with the risk. We will continue to hold patient's calcitriol, calcium and hydrochlorothiazide on discharge. Patient to follow-up with Dr. Benítez within the next 2 weeks. 2) autoimmune hypoparathyroidism Continue to follow with Dr. Benítez as an outpatient. 3) hypokalemia Resolved, potassium currently 3.5. 4) AYLA Creatinine currently 4.49, improved from admission. Kidney and bladder ultrasound are unremarkable. We will hold nephrotoxic's on discharge and have patient follow-up with primary care provider within the next 2 weeks. 5) HTN Hold home hydrochlorothiazide as above. Continue losartan, Norvasc continued on discharge until patient can follow-up with her primary care provider or Dr. Adi toribio. 7) depression/anxiety Continue Zoloft and Clonazepam. Patient seen by Eric Overton PA-C, under the supervision of Dr. Judge. Time spent on patient care: 20 minutes. Physical Exam Narrative Patient is a 50-year-old female comfortably resting in bed, alert and orient x3. Patient reports feeling tired from lack of sleep overnight, but denies development of any new symptoms overnight. Const alert, oriented x3 and no apparent distress HEENT normocephalic, head/scalp atraumatic and hearing grossly normal bilaterally Eyes PERRL, EOMs intact bilaterally and conjunctivae normal Neck no lymphadenopathy, supple and no JVD Resp normal respiratory effort, no retractions and no use of accessory muscles Cardio regular rate, regular rhythm and no JVD GI normal to inspection, nondistended, normoactive bowel sounds and soft to palpati on Extremity normal to inspection, full ROM and no clubbing, cyanosis or edema Skin no rashes or lesions noted, no wounds and skin turgor normal Neuro CN's II-XII intact bilaterally Psych affect normal Weight / BMI Weight Weight: 269 lb 6.4 oz Body Mass Index (BMI) 45.5 ABG / Lab / Microbiology Data Result Diagrams: 09/12/21 15:59 09/14/21 05:13 Laboratory: Laboratory Results - last 24 hr 09/13/21 15:42: Urine Creatinine 39.60 09/14/21 05:13: Sodium 141, Potassium 3.5, Chloride 107, Carbon Dioxide 29.0, Anion Gap 5, BUN 49 H, Creatinine 4.49 H, Estim Creat Clear Calc 13.09, Est GFR (MDRD) Af Amer 13 L, Est GFR (MDRD) Non-Af 11 L, BUN/Creatinine Ratio 10.9, Glucose 136 H, Calcium 11.3 H, Total Bilirubin 0.30, AST 25, ALT 32, Alkaline Phosphatase 56, Total Protein 7.3, Albumin 3.5, Globulin 3.8, Albumin/Globulin Ratio 0.9 09/14/21 : U Random Total Protein Cancelled Microbiology: Microbiology 09/12/21 17:14 Urine, Clean Catch Urine Culture - Preliminary Culture exhibits no growth. Radiography Diagnostic Testing: Radiology Impression Renal Ultrasound 09/13/21 07:13 IMPRESSION: Normal ultrasound of the kidneys and urinary bladder. Electronically Signed: Afshin Darden MD at 18:16 EDT Reading Location ID and State: [facility] / [place] , Service support , D/C Instructions Discharge Diet: No restrictions Weight Bearing Status: Weight bearing as tolerated Call your doctor if you observe: Fever of 101 or Higher, Numbness or Tingling, Shortness of breath, Dizziness, Chest pain, Increased palpitations (irregular heartbeat) and Calf discomfort Please Follow Up With: Primary care provider When: Within the next two weeks. Meaningful Use Info Meaningful Use Diagnoses (Choose all that apply): None applicable Discharge Plan Admission Admit Date/Time: 09/12/21 17:57 Primary Reason for Your Visit: Abnormal labs Attending Provider: Kofi Judge Primary Care Provider: Brendon Saenz Consulting Providers: Rodo Marshall Instructions Additional Instructions / Restrictions: * Continue taking Amlodipine while your Hydrochlorothiazide is on hold. * Calcitriol, Calcium and Hydrochlorothiazide have been held on your discharge. Follow up with Dr. Benítez about when to resume these medications. Discharge Orders/Prescriptions Prescriptions: New amlodipine 10 mg tablet 10 mg PO DAILY Qty: 30 RF: 0 Continued losartan 50 mg tablet 100 mg PO DAILY RF: 0 sertraline [Zoloft] 100 mg tablet 150 mg PO DAILY RF: 0 clonazepam 0.25 mg tablet,disintegrating 0.5 mg PO DAILY PRN (Reason: Anxiety) RF: 0 mirtazapine 30 mg tablet 30 mg PO QHS RF: 0 ascorbate calcium (vitamin C) 500 mg tablet 500 mg PO BID RF: 0 cyclobenzaprine 10 mg tablet 10 mg PO DAILY PRN (Reason: muscle spasms) RF: 0 Held calcitriol 0.5 mcg capsule 0.5 mcg PO TID Qty: 270 RF: 1 Hold Instructions: Hold until otherwise instructed by your Bearing Machine Operator. hydrochlorothiazide 25 mg tablet 25 mg PO DAILY Qty: 90 RF: 2 Hold Instructions: Hold until otherwise instructed by your Bearing Machine Operator. calcium 600 mg Capsule 600 mg PO BID RF: 0 Hold Instructions: Hold until otherwise instructed by your Bearing Machine Operator. Referrals / Follow Up: Marques Arredondo MD [STAFF PHYSICIAN] - Within 2 Weeks Brendon Saenz DO [Primary Care Provider] - Within 2 Weeks Markos Benítez MD [STAFF PHYSICIAN] - Within 1 Week Disposition Disposition (needs filled in before D/C Order can be placed): Home, Self Care Documented by User: Dr. Kofi Judge DO 09/14/21 15:26 Providers Date of Admission: 09/12/21 Reason For Visit: HYPERCALCEMIA, AYLA Medications at Discharge Home Medications losartan 50 mg tablet 100 mg PO DAILY 02/14/19 sertraline 100 mg tablet 150 mg PO DAILY tab 02/14/19 ascorbate calcium (vitamin C) 500 mg tablet 500 mg PO BID 09/28/20 clonazepam 0.25 mg disintegrating tablet 0.5 mg PO DAILY PRN tab 09/28/20 cyclobenzaprine 10 mg tablet 10 mg PO DAILY PRN tab 09/28/20 mirtazapine 30 mg tablet 30 mg PO QHS tab 09/28/20 calcitriol 0.5 mcg capsule 0.5 mcg PO TID #270 cap 08/23/21 hydrochlorothiazide 25 mg tablet 25 mg PO DAILY #90 tab 08/23/21 calcium 600 mg PO BID 09/12/21 amlodipine 10 mg PO DAILY #30 tab 09/14/21 Hospital Course Operations None Procedures None Summary of Care Provided Minutes Spent on Discharge: 32 Hospital Course: Patient seen and examined independently. Data and vitals reviewed. I agree with the above note by the physician assistant housekeeping manager. 50-year-old female presents with hypercalcemia of 14.5 and acute kidney injury with creatinine of 5. Previously both have been normal. Patient had been taking calcitriol as well as calcium through her prepress specialist for history of autoimmune hypoparathyroidism. Patient had lab work that showed these abnormalities. Patient was also taking HCTZ for blood pressure and that was held. Patient received fluids and her calcium has come down to 11.3 and her kidney function has come down to 4.49. Patient has been improving and today, the patient was very upset partly due to the fact that she did not sleep well overnight for no obvious reason other than being in the hospital and wished to go home. I recommended the patient stay so we can continue to give her IV fl uids and monitor labs but emphasized that if she can have close follow-up and continue taking an oral supplementation as well as holding the previously mentioned medications that she could be discharged but if she does notice anything different come back into the hospital. Physical Exam Const alert and no apparent distress Resp normal respiratory effort, no retractions, no use of accessory muscles and clear to auscultation bilaterally Cardio regular rate, regular rhythm, S1 normal heart sound and S2 normal heart sound GI normal to inspection, nondistended, normoactive bowel sounds, soft to palpation and non-tender Neuro oriented x3 Sensorium / Orientation: awake, alert and oriented to person ABG / Lab / Microbiology Data Result Diagrams: 09/12/21 15:59 09/14/21 05:13 Discharge Plan Admission Admit Date/Time: 09/12/21 17:57 Primary Reason for Your Visit: Abnormal labs Attending Provider: Kofi Judge Primary Care Provider: Brendon Saenz Consulting Providers: Rodo Marshall Instructions Additional Instructions / Restrictions: * Continue taking Amlodipine while your Hydrochlorothiazide is on hold. * Calcitriol, Calcium and Hydrochlorothiazide have been held on your discharge. Follow up with Dr. Benítez about when to resume these medications. Discharge Orders/Prescriptions Prescriptions: New amlodipine 10 mg tablet 10 mg PO DAILY Qty: 30 RF: 0 Continued losartan 50 mg tablet 100 mg PO DAILY RF: 0 sertraline [Zoloft] 100 mg tablet 150 mg PO DAILY RF: 0 clonazepam 0.25 mg tablet,disintegrating 0.5 mg PO DAILY PRN (Reason: Anxiety) RF: 0 mirtazapine 30 mg tablet 30 mg PO QHS RF: 0 ascorbate calcium (vitamin C) 500 mg tablet 500 mg PO BID RF: 0 cyclobenzaprine 10 mg tablet 10 mg PO DAILY PRN (Reason: muscle spasms) RF: 0 Held calcitriol 0.5 mcg capsule 0.5 mcg PO TID Qty: 270 RF: 1 Hold Instructions: Hold until otherwise instructed by your Bearing Machine Operator. hydrochlorothiazide 25 mg tablet 25 mg PO DAILY Qty: 90 RF: 2 Hold Instructions: Hold until otherwise instructed by your Bearing Machine Operator. calcium 600 mg Capsule 600 mg PO BID RF: 0 Hold Instructions: Hold until otherwise instructed by your Bearing Machine Operator. Referrals / Follow Up: Marques Arredondo MD [STAFF PHYSICIAN] - Within 2 Weeks Brendon Saenz DO [Primary Care Provider] - Within 2 Weeks Markos Benítez MD [STAFF PHYSICIAN] - Within 1 Week Disposition Disposition (needs filled in before D/C Order can be placed): Home, Self Care Charges/Coding Visit Charges Inpatient E&M: 07620 Disch Hosp
== END 2021-09-14 13:15 | disposition home or self-care (01) | DRG 640 ==
LOC: ED 15:43 → MS3 18:16
PROVIDERS: Admitting Provider Internal Medicine; Emergency Provider Emergency Medicine; PCP Student in an Organized Health Care Education/Training Program
DX: E83.52 Hypercalcemia (principal); N17.0 Acute kidney failure with tubular necrosis; E20.8 Other hypoparathyroidism; E87.6 Hypokalemia; I10 Essential (primary) hypertension; F41.9 Anxiety disorder, unspecified; Z87.891 Personal history of nicotine dependence; F32.A Depression, unspecified
CPT/HCPCS: 36415; 76770; 80053; 81001; 82570; 83735; 84443; 85025; 87086; 87088; 93005; 99285; J7030; A4216

== ENCOUNTER → 2021-09-12 | Outpatient (CLI) | payer OTHER, SELFPAY ==
[2021-09-12 13:58] LABS: Vitamin B12 733 pg/mL (211-911)
[2021-09-12 14:03] LABS: Calcium,Total 14.5 mg/dL (8.5-10.1)
== END | disposition home or self-care (01) ==
LOC: LAB 12:58
PROVIDERS: PCP Student in an Organized Health Care Education/Training Program; Referring Provider Internal Medicine Endocrinology, Diabetes & Metabolism; Visit Provider Internal Medicine Endocrinology, Diabetes & Metabolism
DX: E20.9 Hypoparathyroidism, unspecified (principal); R82.90 Unspecified abnormal findings in urine
CPT/HCPCS: 36415; 82310; 82607

== ENCOUNTER → 2021-09-16 | Outpatient (CLI) | payer OTHER, SELFPAY ==
[2021-09-16 17:54] LABS: Anion Gap 6 (5-15); BUN 34 mg/dL (7-18); BUN/Creat Ratio 10.2 RATIO (10-20); Calcium,Total 9.4 mg/dL (8.5-10.1); Chloride 104 mmol/L (98-107); Creatinine, Serum 3.32 mg/dL (0.55-1.02); EST Glomerular Filtration Rate 16 mL/min (>60); Est Glom Filt Rate - Afr Amer 19 mL/min (>60); Glucose 98 mg/dL (74-106); Potassium 3.1 mmol/L (3.5-5.1); Sodium Level 140 mmol/L (136-145)
== END | disposition home or self-care (01) ==
LOC: MTLAB 16:38
PROVIDERS: PCP Internal Medicine; Referring Provider Internal Medicine Endocrinology, Diabetes & Metabolism; Visit Provider Internal Medicine Endocrinology, Diabetes & Metabolism
DX: E83.52 Hypercalcemia (principal)
CPT/HCPCS: 36415; 80048

== ENCOUNTER → 2021-09-19 | Outpatient (CLI) | payer OTHER, SELFPAY ==
[2021-09-19 11:36] LABS: Anion Gap 8 (5-15); BUN 28 mg/dL (7-18); BUN/Creat Ratio 11.8 RATIO (10-20); Calcium,Total 8.2 mg/dL (8.5-10.1); Chloride 104 mmol/L (98-107); Creatinine, Serum 2.38 mg/dL (0.55-1.02); EST Glomerular Filtration Rate 23 mL/min (>60); Est Glom Filt Rate - Afr Amer 28 mL/min (>60); Glucose 131 mg/dL (74-106); Sodium Level 140 mmol/L (136-145)
== END | disposition home or self-care (01) ==
LOC: LAB 10:32
PROVIDERS: PCP Student in an Organized Health Care Education/Training Program; Referring Provider Internal Medicine Endocrinology, Diabetes & Metabolism; Visit Provider Internal Medicine Endocrinology, Diabetes & Metabolism
DX: E83.52 Hypercalcemia (principal)
CPT/HCPCS: 36415; 80048

== ENCOUNTER → 2021-09-23 | Outpatient (CLI) | payer OTHER, SELFPAY ==
[2021-09-23 09:57] LABS: Hematocrit 32.7 % (37-47); Hemoglobin 11.4 g/dL (12.0-15.0); Mean Corp Hgb Conc 34.9 g/dL (32-36); Mean Corpuscular Hgb 30.8 pg (27.0-32.0); Mean Corpuscular Volume 88.4 fL (81-99); Mean Platelet Vol. 9.3 fl (6.2-12.0); Platelet Count 294 K/mm3 (150-450); RBC Distribution Width CV 12.7 % (11.6-14.6); RBC Distribution Width SD 41.2 fl (35.1-43.9); White Blood Count 8.8 K/mm3 (4.4-11.0)
[2021-09-23 10:24] LABS: Vitamin D,25 Hydroxy 24.1 ng/mL
[2021-09-23 10:47] LABS: Hemoglobin A1c 5.9 % (3.8-5.6)
[2021-09-23 10:54] LABS: ALB/GLOB Ratio 0.8 RATIO (0.9-2.4); AST(SGOT) 24 U/L (15-37); Alanine Aminotransfer ALT/SGPT 33 U/L (13-56); Albumin, Serum 3.6 g/dL (3.2-5.0); Alkaline Phosphatase 73 U/L (45-117); Anion Gap 8 (5-15); BUN 23 mg/dL (7-18); BUN/Creat Ratio 13.9 RATIO (10-20); Calcium,Total 7.4 mg/dL (8.5-10.1); Chloride 104 mmol/L (98-107); Cholesterol 266 mg/dL (200); Creatinine, Serum 1.65 mg/dL (0.55-1.02); EST Glomerular Filtration Rate 35 mL/min (>60); Est Glom Filt Rate - Afr Amer 42 mL/min (>60); Globulin 4.3 g/dL (2.2-4.2); Glucose 117 mg/dL (74-106); High Density Lipoprotein 40 mg/dL; Potassium 3.5 mmol/L (3.5-5.1); Protein, Total 7.9 g/dL (6.4-8.2); Sodium Level 138 mmol/L (136-145); Thyroid Stim Hormone (TSH) 4.32 uIU/mL (0.358-3.74); Triglycerides 296 mg/dL; Very Low Density Lipoprotein 59 mg/dL (5-40)
== END | disposition home or self-care (01) ==
PROVIDERS: Nurse Practitioner Family; PCP Student in an Organized Health Care Education/Training Program; Referring Provider Nurse Practitioner Family; Visit Provider Nurse Practitioner Family
DX: E78.00 Pure hypercholesterolemia, unspecified (principal); N17.9 Acute kidney failure, unspecified; E20.9 Hypoparathyroidism, unspecified; I10 Essential (primary) hypertension; E55.9 Vitamin D deficiency, unspecified
CPT/HCPCS: 36415; 80053; 80061; 82306; 83036; 84443; 85027

== ENCOUNTER → 2021-10-03 | Outpatient (CLI) | payer OTHER, SELFPAY ==
[2021-10-03 13:53] LABS: ALB/GLOB Ratio 0.9 RATIO (0.9-2.4); AST(SGOT) 32 U/L (15-37); Alanine Aminotransfer ALT/SGPT 37 U/L (13-56); Albumin, Serum 3.7 g/dL (3.2-5.0); Alkaline Phosphatase 81 U/L (45-117); Anion Gap 6 (5-15); BUN 13 mg/dL (7-18); BUN/Creat Ratio 10.9 RATIO (10-20); Chloride 104 mmol/L (98-107); Creatinine, Serum 1.19 mg/dL (0.55-1.02); EST Glomerular Filtration Rate 51 mL/min (>60); Est Glom Filt Rate - Afr Amer 62 mL/min (>60); Glucose 136 mg/dL (74-106); Potassium 3.7 mmol/L (3.5-5.1); Protein, Total 7.7 g/dL (6.4-8.2); Sodium Level 139 mmol/L (136-145)
== END | disposition home or self-care (01) ==
LOC: LAB.FUTURE 08:43 → LAB 11:54
PROVIDERS: Nurse Practitioner Family; PCP Student in an Organized Health Care Education/Training Program; Referring Provider Nurse Practitioner Family; Visit Provider Nurse Practitioner Family
DX: N17.9 Acute kidney failure, unspecified (principal)
CPT/HCPCS: 36415; 80053

== ENCOUNTER → 2021-10-14 | Outpatient (CLI) | payer OTHER, SELFPAY ==
[2021-10-14 16:41] LABS: ALB/GLOB Ratio 0.9 RATIO (0.9-2.4); AST(SGOT) 19 U/L (15-37); Alanine Aminotransfer ALT/SGPT 27 U/L (13-56); Albumin, Serum 3.7 g/dL (3.2-5.0); Alkaline Phosphatase 65 U/L (45-117); Anion Gap 5 (5-15); BUN 20 mg/dL (7-18); BUN/Creat Ratio 15.7 RATIO (10-20); Calcium,Total 8.6 mg/dL (8.5-10.1); Chloride 104 mmol/L (98-107); Creatinine, Serum 1.27 mg/dL (0.55-1.02); EST Glomerular Filtration Rate 47 mL/min (>60); Est Glom Filt Rate - Afr Amer 57 mL/min (>60); Globulin 4.2 g/dL (2.2-4.2); Glucose 152 mg/dL (74-106); Potassium 3.3 mmol/L (3.5-5.1); Protein, Total 7.9 g/dL (6.4-8.2); Sodium Level 137 mmol/L (136-145)
== END | disposition home or self-care (01) ==
LOC: LAB 14:11
PROVIDERS: PCP Student in an Organized Health Care Education/Training Program; Visit Provider Nurse Practitioner Family
DX: E83.52 Hypercalcemia (principal); N17.9 Acute kidney failure, unspecified
CPT/HCPCS: 36415; 80053

== ENCOUNTER → 2021-10-25 | Outpatient (CLI) | payer OTHER, SELFPAY ==
[2021-10-25 11:06] LABS: Anion Gap 5 (5-15); BUN 18 mg/dL (7-18); BUN/Creat Ratio 16.2 RATIO (10-20); Calcium,Total 8.5 mg/dL (8.5-10.1); Chloride 105 mmol/L (98-107); Creatinine, Serum 1.11 mg/dL (0.55-1.02); EST Glomerular Filtration Rate 55 mL/min (>60); Est Glom Filt Rate - Afr Amer 67 mL/min (>60); Glucose 145 mg/dL (74-106); Potassium 3.5 mmol/L (3.5-5.1); Sodium Level 140 mmol/L (136-145)
== END | disposition home or self-care (01) ==
LOC: LAB 09:51
PROVIDERS: PCP Student in an Organized Health Care Education/Training Program; Visit Provider Internal Medicine Endocrinology, Diabetes & Metabolism
DX: N17.9 Acute kidney failure, unspecified (principal); E20.9 Hypoparathyroidism, unspecified
CPT/HCPCS: 36415; 80048

== ENCOUNTER → 2021-11-18 | Outpatient (CLI) | payer OTHER, SELFPAY ==
[2021-11-18 10:10] LABS: T3 Total - Triiodothyronine 1.23 ng/mL (0.6-1.81)
[2021-11-18 10:20] LABS: ALB/GLOB Ratio 0.9 RATIO (0.9-2.4); AST(SGOT) 21 U/L (15-37); Alanine Aminotransfer ALT/SGPT 27 U/L (13-56); Albumin, Serum 3.7 g/dL (3.2-5.0); Alkaline Phosphatase 63 U/L (45-117); Anion Gap 9 (5-15); BUN 20 mg/dL (7-18); BUN/Creat Ratio 18.9 RATIO (10-20); Calcium,Total 8.9 mg/dL (8.5-10.1); Chloride 99 mmol/L (98-107); Cholesterol 252 mg/dL (200); Creatinine, Serum 1.06 mg/dL (0.55-1.02); EST Glomerular Filtration Rate 58 mL/min (>60); Est Glom Filt Rate - Afr Amer 71 mL/min (>60); Globulin 4.3 g/dL (2.2-4.2); Glucose 120 mg/dL (74-106); High Density Lipoprotein 48 mg/dL; Potassium 3.9 mmol/L (3.5-5.1); Sodium Level 137 mmol/L (136-145); T4 Free Direct 1.05 ng/dL (0.76-1.46); Thyroid Stim Hormone (TSH) 3.25 uIU/mL (0.358-3.74); Triglycerides 217 mg/dL; Very Low Density Lipoprotein 43 mg/dL (5-40)
== END | disposition home or self-care (01) ==
PROVIDERS: PCP Student in an Organized Health Care Education/Training Program; Referring Provider Nurse Practitioner Family; Visit Provider Nurse Practitioner Family
DX: E78.2 Mixed hyperlipidemia (principal); N17.9 Acute kidney failure, unspecified; E20.9 Hypoparathyroidism, unspecified; Z13.29 Encounter for screening for other suspected endocrine disorder
CPT/HCPCS: 36415; 80053; 80061; 84439; 84443; 84480

== ENCOUNTER → 2021-12-30 | Outpatient (CLI) | payer OTHER, SELFPAY ==
[2021-12-30 13:41] LABS: Absolute Lymphocyte Count 1.85 X10^3/uL (0.83-4.51); Absolute Neutrophil Count 5.9 X10^3/uL (2.0-7.7); Basophil# 0.03 X10^3/uL; Basophil% 0.4 % (0-1); Eosinophil# 0.23 X10^3/uL; Eosinophils% 2.7 % (0-5); Hematocrit 36.2 % (37-47); Hemoglobin 12.4 g/dL (12.0-15.0); Lymphocyte # 1.85 X10^3/ul (0.83-4.51); Lymphocyte % 22.1 % (19-41); Mean Corp Hgb Conc 34.3 g/dL (32-36); Mean Corpuscular Volume 87.4 fL (81-99); Mean Platelet Vol. 9.6 fl (6.2-12.0); Monocyte# 0.32 X10^3/uL; Monocyte% 3.8 % (0-10); NRBC Flagged by Analyzer 0 % (0-5); Neutrophil # 5.91 X10^3/uL (2.7-7.7); Neutrophil % 70.4 % (47-70); Platelet Count 326 K/mm3 (150-450); RBC Distribution Width CV 12.4 % (11.6-14.6); RBC Distribution Width SD 39.6 fl (35.1-43.9); Red Blood Count 4.14 M/mm3 (4.2-5.4); White Blood Count 8.4 K/mm3 (4.4-11.0)
[2021-12-30 14:02] LABS: Microalbumin,Random Urine 7.4 mg/L (NO RANGE EST.); Microalbumin:Creatinine Ratio 6.2 mg/g CRE (<30 mg/g CRE)
[2021-12-30 14:11] LABS: Vitamin D,25 Hydroxy 23.8 ng/mL
[2021-12-30 14:18] LABS: ALB/GLOB Ratio 0.8 RATIO (0.9-2.4); AST(SGOT) 20 U/L (15-37); Alanine Aminotransfer ALT/SGPT 28 U/L (13-56); Albumin, Serum 3.7 g/dL (3.2-5.0); Alkaline Phosphatase 72 U/L (45-117); Anion Gap 6 (5-15); BUN 20 mg/dL (7-18); BUN/Creat Ratio 18.5 RATIO (10-20); Calcium,Total 9.2 mg/dL (8.5-10.1); Chloride 101 mmol/L (98-107); Creatinine, Serum 1.08 mg/dL (0.55-1.02); EST Glomerular Filtration Rate 57 mL/min (>60); Est Glom Filt Rate - Afr Amer 69 mL/min (>60); Ferritin 25 ng/mL (8-252); Globulin 4.5 g/dL (2.2-4.2); Glucose 137 mg/dL (74-106); Iron 63 ug/dL (50-170); Iron Binding Capacity,Total 363 ug/dL (250-450); PERCENT IRON SATURATION 17.4 % (15.0-55.0); Potassium 3.6 mmol/L (3.5-5.1); Protein, Total 8.2 g/dL (6.4-8.2); Sodium Level 137 mmol/L (136-145); Thyroid Stim Hormone (TSH) 2.16 uIU/mL (0.358-3.74)
== END | disposition home or self-care (01) ==
LOC: LAB 12:31
PROVIDERS: PCP Student in an Organized Health Care Education/Training Program; Referring Provider Internal Medicine Endocrinology, Diabetes & Metabolism; Visit Provider Internal Medicine Endocrinology, Diabetes & Metabolism
DX: E55.9 Vitamin D deficiency, unspecified (principal); E20.9 Hypoparathyroidism, unspecified; I10 Essential (primary) hypertension
CPT/HCPCS: 36415; 80053; 82043; 82306; 82570; 82728; 83540; 83550; 84443; 85025

== ENCOUNTER → 2022-01-09 | Outpatient (CLI) | payer OTHER, SELFPAY ==
[2022-01-09 13:57] LABS: ALB/GLOB Ratio 0.8 RATIO (0.9-2.4); AST(SGOT) 21 U/L (15-37); Alanine Aminotransfer ALT/SGPT 30 U/L (13-56); Albumin, Serum 3.7 g/dL (3.2-5.0); Alkaline Phosphatase 71 U/L (45-117); Anion Gap 5 (5-15); BUN 19 mg/dL (7-18); BUN/Creat Ratio 18.1 RATIO (10-20); Calcium,Total 9.4 mg/dL (8.5-10.1); Chloride 102 mmol/L (98-107); Creatinine, Serum 1.05 mg/dL (0.55-1.02); EST Glomerular Filtration Rate 59 mL/min (>60); Est Glom Filt Rate - Afr Amer 71 mL/min (>60); Globulin 4.6 g/dL (2.2-4.2); Glucose 107 mg/dL (74-106); Potassium 3.8 mmol/L (3.5-5.1); Protein, Total 8.3 g/dL (6.4-8.2); Sodium Level 138 mmol/L (136-145)
== END | disposition home or self-care (01) ==
LOC: LAB 12:34
PROVIDERS: PCP Student in an Organized Health Care Education/Training Program; Referring Provider Nurse Practitioner Family; Visit Provider Nurse Practitioner Family
DX: I10 Essential (primary) hypertension (principal); E87.6 Hypokalemia
CPT/HCPCS: 36415; 80053

== ENCOUNTER → 2022-02-20 | Outpatient (CLI) | payer OTHER, SELFPAY ==
[2022-02-20 11:22] LABS: Anion Gap 6 (5-15); BUN 20 mg/dL (7-18); BUN/Creat Ratio 19.2 RATIO (10-20); Calcium,Total 8.5 mg/dL (8.5-10.1); Chloride 102 mmol/L (98-107); Creatinine, Serum 1.04 mg/dL (0.55-1.02); EST Glomerular Filtration Rate 60 mL/min (>60); Est Glom Filt Rate - Afr Amer 72 mL/min (>60); Glucose 128 mg/dL (74-106); Potassium 3.9 mmol/L (3.5-5.1); Sodium Level 137 mmol/L (136-145)
== END | disposition home or self-care (01) ==
LOC: LAB 10:36
PROVIDERS: PCP Student in an Organized Health Care Education/Training Program; Referring Provider Internal Medicine Nephrology; Visit Provider Internal Medicine Nephrology
DX: N18.31 Chronic kidney disease, stage 3a (principal)
CPT/HCPCS: 36415; 80048

== ENCOUNTER → 2022-07-03 | Outpatient (CLI) | payer OTHER, SELFPAY ==
[2022-07-03 09:55] LABS: Absolute Lymphocyte Count 1.95 X10^3/uL (0.83-4.51); Absolute Neutrophil Count 5.9 X10^3/uL (2.0-7.7); Basophil# 0.04 X10^3/uL; Basophil% 0.5 % (0-1); Eosinophil# 0.24 X10^3/uL; Eosinophils% 2.8 % (0-5); Hematocrit 33.7 % (37-47); Hemoglobin 11.5 g/dL (12.0-15.0); Lymphocyte # 1.95 X10^3/ul (0.83-4.51); Lymphocyte % 22.7 % (19-41); Mean Corp Hgb Conc 34.1 g/dL (32-36); Mean Corpuscular Hgb 29.9 pg (27.0-32.0); Mean Corpuscular Volume 87.5 fL (81-99); Mean Platelet Vol. 9.8 fl (6.2-12.0); Monocyte# 0.37 X10^3/uL; Monocyte% 4.3 % (0-10); NRBC Flagged by Analyzer 0 % (0-5); Neutrophil # 5.94 X10^3/uL (2.7-7.7); Neutrophil % 69.1 % (47-70); Platelet Count 305 K/mm3 (150-450); RBC Distribution Width CV 12.9 % (11.6-14.6); RBC Distribution Width SD 40.8 fl (35.1-43.9); Red Blood Count 3.85 M/mm3 (4.2-5.4); White Blood Count 8.6 K/mm3 (4.4-11.0)
[2022-07-03 10:29] LABS: Hemoglobin A1c 5.8 % (3.8-5.6)
[2022-07-03 11:02] LABS: ALB/GLOB Ratio 0.8 RATIO (0.9-2.4); AST(SGOT) 19 U/L (15-37); Alanine Aminotransfer ALT/SGPT 23 U/L (13-56); Albumin, Serum 3.5 g/dL (3.2-5.0); Alkaline Phosphatase 60 U/L (45-117); Anion Gap 6 (5-15); BUN 21 mg/dL (7-18); Calcium,Total 8.3 mg/dL (8.5-10.1); Chloride 103 mmol/L (98-107); Cholesterol 225 mg/dL (200); Creatinine, Serum 1.05 mg/dL (0.55-1.02); EST Glomerular Filtration Rate 59 mL/min (>60); Est Glom Filt Rate - Afr Amer 71 mL/min (>60); Globulin 4.2 g/dL (2.2-4.2); Glucose 117 mg/dL (74-106); High Density Lipoprotein 41 mg/dL; Potassium 3.6 mmol/L (3.5-5.1); Protein, Total 7.7 g/dL (6.4-8.2); Sodium Level 138 mmol/L (136-145); T4 Free Direct 1.02 ng/dL (0.76-1.46); Thyroid Stim Hormone (TSH) 5.25 uIU/mL (0.358-3.74); Triglycerides 271 mg/dL; Very Low Density Lipoprotein 54 mg/dL (5-40)
== END | disposition home or self-care (01) ==
PROVIDERS: PCP Student in an Organized Health Care Education/Training Program
DX: I10 Essential (primary) hypertension (principal); E20.9 Hypoparathyroidism, unspecified; E78.2 Mixed hyperlipidemia
CPT/HCPCS: 36415; 80053; 80061; 83036; 83970; 84439; 84443; 84480; 85025

== ENCOUNTER → 2022-08-01 | Outpatient (CLI) | payer OTHER, SELFPAY ==
[2022-08-01 10:40] LABS: ALB/GLOB Ratio 0.9 RATIO (0.9-2.4); AST(SGOT) 23 U/L (15-37); Alanine Aminotransfer ALT/SGPT 31 U/L (13-56); Albumin, Serum 3.5 g/dL (3.2-5.0); Alkaline Phosphatase 65 U/L (45-117); Anion Gap 6 (5-15); BUN 18 mg/dL (7-18); Calcium,Total 9.2 mg/dL (8.5-10.1); Chloride 101 mmol/L (98-107); Creatinine, Serum 1.06 mg/dL (0.55-1.02); EST Glomerular Filtration Rate 58 mL/min (>60); Est Glom Filt Rate - Afr Amer 70 mL/min (>60); Globulin 4.1 g/dL (2.2-4.2); Glucose 122 mg/dL (74-106); Potassium 3.7 mmol/L (3.5-5.1); Protein, Total 7.6 g/dL (6.4-8.2); Sodium Level 136 mmol/L (136-145)
== END | disposition home or self-care (01) ==
LOC: LAB 08:37
PROVIDERS: PCP Student in an Organized Health Care Education/Training Program; Referring Provider Nurse Practitioner Family; Visit Provider Nurse Practitioner Family
DX: N17.9 Acute kidney failure, unspecified (principal)
CPT/HCPCS: 36415; 80053

== ENCOUNTER → 2022-09-08 | Outpatient (CLI) | payer OTHER, SELFPAY ==
[2022-09-08 12:42] LABS: ALB/GLOB Ratio 0.9 RATIO (0.9-2.4); AST(SGOT) 23 U/L (15-37); Alanine Aminotransfer ALT/SGPT 41 U/L (13-56); Albumin, Serum 3.6 g/dL (3.2-5.0); Alkaline Phosphatase 64 U/L (45-117); Anion Gap 7 (5-15); BUN 19 mg/dL (7-18); BUN/Creat Ratio 18.1 RATIO (10-20); Calcium,Total 9.7 mg/dL (8.5-10.1); Chloride 100 mmol/L (98-107); Creatinine, Serum 1.05 mg/dL (0.55-1.02); EST Glomerular Filtration Rate 59 mL/min (>60); Est Glom Filt Rate - Afr Amer 71 mL/min (>60); Globulin 4.2 g/dL (2.2-4.2); Glucose 204 mg/dL (74-106); Potassium 3.4 mmol/L (3.5-5.1); Protein, Total 7.8 g/dL (6.4-8.2); Sodium Level 137 mmol/L (136-145); T4 Free Direct 1.02 ng/dL (0.76-1.46); Thyroid Stim Hormone (TSH) 2.35 uIU/mL (0.358-3.74)
== END | disposition home or self-care (01) ==
LOC: LAB 11:15
PROVIDERS: PCP Student in an Organized Health Care Education/Training Program; Referring Provider Internal Medicine Endocrinology, Diabetes & Metabolism; Visit Provider Internal Medicine Endocrinology, Diabetes & Metabolism
DX: E20.9 Hypoparathyroidism, unspecified (principal); R94.6 Abnormal results of thyroid function studies
CPT/HCPCS: 36415; 80053; 84439; 84443

== ENCOUNTER → 2022-09-16 | Outpatient (CLI) | payer OTHER, SELFPAY ==
[2022-09-16 13:58] LABS: Bacteria 0 SEEN /hpf (None Seen); Mucous, Urine 0 SEEN /hpf (<or=2+); Red Blood Cells-Urine 0 SEEN /hpf (0-5)
[2022-09-16 15:47] LABS: Hematocrit 36.1 % (37-47); Hemoglobin 12.3 g/dL (12.0-15.0); Mean Corp Hgb Conc 34.1 g/dL (32-36); Mean Corpuscular Hgb 30.3 pg (27.0-32.0); Mean Corpuscular Volume 88.9 fL (81-99); Mean Platelet Vol. 10.1 fl (6.2-12.0); Platelet Count 309 K/mm3 (150-450); RBC Distribution Width CV 12.5 % (11.6-14.6); RBC Distribution Width SD 40.5 fl (35.1-43.9); Red Blood Count 4.06 M/mm3 (4.2-5.4); White Blood Count 6.5 K/mm3 (4.4-11.0)
[2022-09-16 15:54] LABS: Color, Urine Yellow (Yellow); Glucose, Dipstick Normal (Normal); Ketone-Dipstick Negative (Negative); Leukocyte Esterase-Dipstick 25 /ul (Negative); Nitrite-Dipstick Negative (Negative); Occult Blood-Urine Negative /ul (Negative); Protein-Dipstick Negative (Negative); Specific Gravity, Urine 1.015 (1.002-1.030); Urine Bilirubin Dipstick Negative (Negative); Urine Clarity Clear (Clear); Urine Urobilinogen Normal (Normal)
[2022-09-16 16:14] LABS: Erythrocyte Sedimentation Rate 24 mm/hr (0-30)
[2022-09-16 16:26] LABS: Vitamin D,25 Hydroxy 30.3 ng/mL
[2022-09-16 16:28] LABS: Albumin, Serum 3.8 g/dL (3.2-5.0); BUN 19 mg/dL (7-18); BUN/Creat Ratio 15.8 RATIO (10-20); CPK Total, Creatine Kinase 54 U/L (26-192); CRP 5.81 mg/L (0.0-3.0); Calcium,Total 9.2 mg/dL (8.5-10.1); Chloride 103 mmol/L (98-107); EST Glomerular Filtration Rate 50 mL/min (>60); Est Glom Filt Rate - Afr Amer 61 mL/min (>60); Glucose 122 mg/dL (74-106); Phosphorus 3.1 mg/dL (2.5-4.9); Potassium 3.5 mmol/L (3.5-5.1); Rheumatoid Factor < 10.0 IU/mL (<15); Sodium Level 138 mmol/L (136-145)
[2022-09-16 16:34] LABS: Protein, Urine (Random) 14.2 mg/dL (<11.9); Protein:Creat Ratio 91 mg/g CRE (0-200)
[2022-09-16 16:47] LABS: Squamous Epithelial Cells - UA 0-5 SEEN /hpf (5-10); White Blood Cells 0-5 SEEN /hpf (0-5)
[2022-09-17 09:11] LABS: PTHIN 8.5 pg/mL (18.4-80.1)
[2022-09-18 13:08] LABS: ANTINUCLEAR ANTIBODIES DIRECT Negative (Negative); RNP Ab <0.2 AI (0.0-0.9); Smith Ab <0.2 AI (0.0-0.9)
[2022-09-18 15:09] LABS: Aldolase 5.3 U/L (3.3-10.3)
== END | disposition home or self-care (01) ==
LOC: MTLAB 13:42
PROVIDERS: PCP Student in an Organized Health Care Education/Training Program; Referring Provider Internal Medicine Nephrology; Visit Provider Internal Medicine Nephrology
DX: M79.10 Myalgia, unspecified site (principal); N18.31 Chronic kidney disease, stage 3a
CPT/HCPCS: 36415; 80069; 81001; 82085; 82306; 82550; 82570; 83735; 83970; 84156; 85027; 85652; 86038; 86140; 86235; 86431

== ENCOUNTER → 2022-09-22 | Outpatient (CLI) | payer OTHER, SELFPAY ==
--- NOTE | 2022-09-22 07:27 | US_ITS ---
HISTORY: RUQ ABDOMINAL PAIN. TECHNIQUE: Irwin scale and color doppler imaging was performed of the right upper quadrant. 82 images. COMPARISON: 09/13/2021. FINDINGS: LIVER: 20.6 cm in length. Heterogeneous echotexture without focal lesion demonstrated. No intrahepatic ductal dilatation. MAIN PORTAL VEIN: Patent with flow in the appropriate direction. COMMON BILE DUCT: 6 mm in diameter. GALLBLADDER: Multiple large gallstones measuring up to 3.1 cm in the distended gallbladder. 2 mm wall thickness, within normal limits. No pericholecystic fluid. Sonographic Krishnamurthy sign negative. PANCREAS: Not well visualized due to overlying bowel gas. RIGHT KIDNEY: 11.3 cm in length with a cortical thickness of 1.8 cm. No hydronephrosis or gross renal mass demonstrated. US/Abdomen Limited IMPRESSION: Cholelithiasis with numerous large gallstones in a distended gallbladder. Hepatic steatosis with hepatomegaly. Electronically Signed: Vi Burciaga MD at 8:50 EDT ,
== END | disposition home or self-care (01) ==
LOC: US 07:26
PROVIDERS: PCP Student in an Organized Health Care Education/Training Program; Referring Provider Student in an Organized Health Care Education/Training Program; Visit Provider Student in an Organized Health Care Education/Training Program
DX: R10.11 Right upper quadrant pain (principal); K80.20 Calculus of gallbladder without cholecystitis without obstruction
CPT/HCPCS: 76705

== ENCOUNTER → 2022-09-23 | Outpatient (CLI) | payer OTHER, SELFPAY ==
--- NOTE | 2022-09-23 15:05 | BI_ITS ---
MAMMOGRAPHY - BILATERAL SCREENING REASON FOR EXAM: Female, 51 years old. Routine annual screening examination. PERTINENT HISTORY: Non-contributory. TECHNIQUE: Digital bilateral breast hetal (3D mammographic acquisition) in the CC and MLO projections. 2-D mediolateral oblique (MLO) and craniocaudad (CC) views of both breasts were obtained. CAD: Full Field Digital Mammography with Computer Added Detection was performed. COMPARISON: Mammogram from 02/06/2021, 01/23/2020. FINDINGS: Breast Composition: The breasts are almost entirely fatty. There are no dominant masses or suspicious calcifications. No other significant abnormalities are identified. There has been no significant change since the prior study. BI/SCRN MAMM (CAD)W/HETAL BILAT IMPRESSION: Stable bilateral screening mammogram. Yearly follow-up mammogram recommended. (A) ASSESSMENT CATEGORY: BIRADS Category 1: Negative. A letter regarding these results will be sent to the patient by the facility within 30 days. Approximately 10% of breast cancers are not detected by mammography. A normal mammogram should not delay biopsy of a clinically suspicious abnormality. Electronically Signed: Addi Borjas MD at 17:26 EDT ,
--- NOTE | 2022-09-23 15:07 | BD_ITS ---
STUDY: DUAL ENERGY X-RAY ABSORPTIOMETRY / DXA REASON FOR EXAM: Female, 51 years old. Screening TECHNIQUE: Bone Mineral Density (BMD) measurements of lumbar spine and bilateral hips were obtained. COMPARISON: None. FINDINGS: Lumbar Spine (L1-L4): g/cm2 (1.343) / T-score (2.7) / Z-score (3.5) Findings are suggestive of normal bone density with a low fracture risk. Left Femur Total: g/cm2 (1.374) / T-score (3.5) / Z-score (4.0) Left Femoral Neck: g/cm2 (1.267) / T-score (3.8) / Z-score (4.6) Right Femur Total: g/cm2 (1.330) / T-score (3.2) / Z-score (3.7) Right Femoral Neck: g/cm2 (1.267) / T-score (3.8) / Z-score (4.6) BD/Dexa Bone Density Study IMPRESSION: The patient is considered normal as outlined below according to World [employer] Organization (WHO) criteria with a low fracture risk. Reference Information: The T-score is the number of standard deviations above or below the standard which is normal for young adults at their peak bone mineral density. The World Health Organization (WHO) interprets the T-scores as follows: Above -1 Normal bone density Between -1 and -2.5 Osteopenia Equal to / or below -2.5 Osteoporosis As a practical clinical guideline, osteopenia may be graded as follows: Mild -1 through -1.5 Moderate -1.6 through -2.0 Severe -2.1 through -2.4 The Z-score is the number of standard deviations above or below age-matched controls. A Z-score of less than -1.5 would be considered abnormal. References: 1. NIH Osteoporosis and Related Bone Diseases www osteo.org 2. International Society for Clinical Densitometry www iscd.org 3. National Osteoporosis Foundation www nof.org Electronically Signed: Alan Duarte MD at 11:13 EDT ,
== END | disposition home or self-care (01) ==
PROVIDERS: PCP Student in an Organized Health Care Education/Training Program; Referring Provider Student in an Organized Health Care Education/Training Program; Visit Provider Student in an Organized Health Care Education/Training Program
DX: Z12.31 Encounter for screening mammogram for malignant neoplasm of breast (principal); E20.9 Hypoparathyroidism, unspecified
CPT/HCPCS: 77063; 77067; 77080

== ENCOUNTER → 2023-01-19 | Outpatient (CLI) | payer OTHER, SELFPAY ==
[2023-01-19 15:36] LABS: Vitamin B12 501 pg/mL (211-911); Vitamin D,25 Hydroxy 36.6 ng/mL
[2023-01-19 15:41] LABS: ALB/GLOB Ratio 0.8 RATIO (0.9-2.4); AST(SGOT) 32 U/L (15-37); Alanine Aminotransfer ALT/SGPT 52 U/L (13-56); Albumin, Serum 3.7 g/dL (3.2-5.0); Alkaline Phosphatase 69 U/L (45-117); Anion Gap 6 (5-15); BUN 23 mg/dL (7-18); BUN/Creat Ratio 15.9 RATIO (10-20); Calcium,Total 9.2 mg/dL (8.5-10.1); Chloride 101 mmol/L (98-107); Creatinine, Serum 1.45 mg/dL (0.55-1.02); EST Glomerular Filtration Rate 40 mL/min (>60); Est Glom Filt Rate - Afr Amer 49 mL/min (>60); Ferritin 43 ng/mL (8-252); Globulin 4.6 g/dL (2.2-4.2); Glucose 136 mg/dL (74-106); Potassium 3.9 mmol/L (3.5-5.1); Protein, Total 8.3 g/dL (6.4-8.2); Sodium Level 137 mmol/L (136-145); Thyroid Stim Hormone (TSH) 3.06 uIU/mL (0.358-3.74)
== END | disposition home or self-care (01) ==
LOC: LAB 14:06
PROVIDERS: PCP Student in an Organized Health Care Education/Training Program; Referring Provider Nurse Practitioner Family; Visit Provider Nurse Practitioner Family
DX: R53.83 Other fatigue (principal)
CPT/HCPCS: 36415; 80053; 82306; 82607; 82728; 84443

== ENCOUNTER → 2023-02-25 | Outpatient (CLI) | payer OTHER, SELFPAY ==
--- NOTE | 2023-02-25 10:50 | RAD_ITS ---
INDICATION: pain EXAMINATION/TECHNIQUE: X-RAY - LEFT XR Ankle 3 VIEWS COMPARISON: FINDINGS: SOFT TISSUES: There is soft tissue swelling. No radiopaque foreign body. BONES/JOINTS: No acute fracture or subluxation.. Normal alignment. Preservation of the joint space.. No sclerotic or destructive changes observed. RAD/Ankle min 3 Views IMPRESSION: Soft tissue edema. Electronically Signed: Aamir Jorgensen DO at 16:20 EDT ,
== END | disposition home or self-care (01) ==
LOC: RAD 10:47
PROVIDERS: PCP Student in an Organized Health Care Education/Training Program; Referring Provider Orthopaedic Surgery Sports Medicine; Visit Provider Orthopaedic Surgery Sports Medicine
DX: M25.572 Pain in left ankle and joints of left foot (principal)
CPT/HCPCS: 73610

== ENCOUNTER → 2023-04-10 | Outpatient (CLI) | payer OTHER, SELFPAY ==
[2023-04-10 11:14] LABS: Protein, Urine (Random) 8.3 mg/dL (<11.9); Protein:Creat Ratio 140 mg/g CRE (0-200)
[2023-04-10 12:00] LABS: Vitamin B12 393 pg/mL (211-911)
[2023-04-10 12:07] LABS: Albumin, Serum 3.4 g/dL (3.2-5.0); BUN 22 mg/dL (7-18); BUN/Creat Ratio 17.1 RATIO (10-20); Calcium,Total 9.8 mg/dL (8.5-10.1); Chloride 101 mmol/L (98-107); Creatinine, Serum 1.29 mg/dL (0.55-1.02); EST Glomerular Filtration Rate 46 mL/min (>60); Est Glom Filt Rate - Afr Amer 56 mL/min (>60); Free T3 2.3 pg/mL (2.18-3.98); Glucose 186 mg/dL (74-106); Phosphorus 2.6 mg/dL (2.5-4.9); Potassium 3.7 mmol/L (3.5-5.1); Sodium Level 135 mmol/L (136-145); T4 Free Direct 1.03 ng/dL (0.76-1.46); Thyroid Stim Hormone (TSH) 2.27 uIU/mL (0.358-3.74)
== END | disposition home or self-care (01) ==
PROVIDERS: PCP Student in an Organized Health Care Education/Training Program; Referring Provider Internal Medicine Nephrology; Visit Provider Internal Medicine Nephrology
DX: R94.6 Abnormal results of thyroid function studies (principal); N18.31 Chronic kidney disease, stage 3a; E53.8 Deficiency of other specified B group vitamins
CPT/HCPCS: 36415; 80069; 82570; 82607; 84156; 84439; 84443; 84481

== ENCOUNTER → 2023-04-13 | Outpatient (CLI) | payer OTHER, SELFPAY ==
--- NOTE | 2023-04-13 07:22 | US_ITS ---
STUDY: ABDOMINAL ULTRASOUND - RIGHT UPPER QUADRANT; ELASTOGRAPHY REASON FOR VISIT: Female, 52 years old. Fatty infiltration of the liver. TECHNIQUE: Ultrasound evaluation of the right upper quadrant was performed with real-time and static cox-scale imaging. Point quantification shear wave elastography was performed (LibriLoop). TECHNICAL QUALITY: Adequate. COMPARISON: Comparison is made with prior study dated September 22, 2022. FINDINGS: Liver: The liver is enlarged and measures 19.4 cm. There is increased echogenicity consistent with fatty infiltration. Focal fatty sparing is seen in the pericholecystic region. The bile ducts are within normal limits. There is hepatic color flow. The direction of portal flow is hepatopetal. There is no demonstrated mass lesion. Median liver stiffness measured 5.4 kPa. Gallbladder: Normal distended gallbladder. The gallbladder wall measures 1.3 mm. There is a negative sonographic Krishnamurthy''s sign. There is no pericholecystic fluid. There are multiple echogenic structures within the gallbladder, consistent with multiple gallstones. Common Bile Duct (C.B.D.): The common bile duct measures 3.1 mm. Pancreas: There is increased echogenicity of the pancreas. There is no demonstrated pancreatic mass or cyst. Right Kidney: Normal size of the right kidney. The right kidney measures 11.5 cm x 5.8 cm x 6.8 cm. Normal renal cortex. The right cortex measures 1.5 cm. There is no demonstrated renal mass or cyst. There is no right hydronephrosis. US/ABD Limited w/ Elastography IMPRESSION: 1. Liver stiffness measures 5.4 kPa compatible with F0-F1 (Normal to mild liver fibrosis) Metavir score. Electronically Signed: Alan Duarte MD at 9:46 EST ,
== END | disposition home or self-care (01) ==
LOC: US 07:21
PROVIDERS: PCP Student in an Organized Health Care Education/Training Program; Referring Provider Student in an Organized Health Care Education/Training Program; Visit Provider Student in an Organized Health Care Education/Training Program
DX: K76.0 Fatty (change of) liver, not elsewhere classified (principal)
CPT/HCPCS: 91200; 76705; 76981

== ENCOUNTER → 2023-06-23 | Outpatient (CLI) | payer OTHER, SELFPAY ==
--- OUTSIDE RECORDS SUMMARY | 2023-06-23 10:43 | XMS RPT_ITS | CCD ---
Author Name Unknown Address [address] [facility] [facility] [address] [place] [address] Organization [facility] Care Team Providers Care Senior Compliance Analyst Name Role Phone Brendon Blakely DO Primary Care Provider ERICH RIZZO Attending Unavailable BRENDON BLAKELY Primary Care Unavailable BRENDON BLAKELY Attending Unavailable BRENDON BLAKELY Primary Care Unavailable TERI WASSERMAN Attending Unavailable BRENDON BLAKELY Primary Care Unavailable BRENDON BLAKELY Attending Unavailable BRENDON BLAKELY Primary Care Unavailable BRENDON BLAKELY Attending Unavailable BRENDON BLAKELY Primary Care Unavailable Allergies Allergy Classification Reported Allergen(s) Allergy Type Date of Onset Reaction(s) Facility (20 sources) buPROPion; Translations: [BUPROPION HCL] Drug Allergy 7 Other: See Comments [facility] Work Phone: (20 sources) Latex; Translations: [LATEX] Drug Allergy 4 Hives [facility] (7 sources) Penicillins; Translations: [PENICILLINS] Drug Intolerance 3 Shortness of Breath [facility] Work Phone: (20 sources) predniSONE; Translations: [PREDNISONE] Drug Allergy 6 GI Upset, Other: See Comments [facility] Work Phone: (20 sources) Penicillins Drug Intolerance 3 Shortness of Breath [facility] Work Phone: Medications Completed/Discontinued Medications Medication Drug Class(es) Dates Sig (Normalized) Sig (Original) amLODIPine 10 mg oral tablet (14 sources) Dihydropyridine Calcium Channel Nick Start: 10-25-2021 End: 05-08-2022 take 0.5 tablet by mouth once daily amLODIPine (NORVASC) 10 mg tablet Take 0.5 tablets by mouth once daily. 90 tablet 1 10/25/2021 05/08/2022 Discontinued Problems Active Problems Problem Classification Problem Date Documented Date Episodic/Chronic Acute and unspecified renal failure (3 sources) Acute injury of kidney; Translations: [Acute kidney failure, unspecified] Episodic Anxiety disorders (20 sources) Anxiety; Translations: [Other specified anxiety disorders] Onset: 12-28-2012 Chronic Chronic kidney disease (2 sources) Chronic kidney disease stage 3A ; Translations: [Stage 3a chronic kidney disease (HCC)] Onset: 03-17-2023 03-17-2023 Chronic Disorders of lipid metabolism (20 sources) Hypercholesterolemia; Translations: [Pure hypercholesterolemia, unspecified] Onset: 10-17-2014 09-19-2015 Chronic Essential hypertension (20 sources) Hypertensive disorder; Translations: [Essential (primary) hypertension] Onset: 11-23-2017 11-23-2017 Chronic Mood disorders (20 sources) Dysthymia; Translations: [Dysthymic disorder] Onset: 12-03-2016 12-03-2016 Chronic Nutritional deficiencies (1 source) Vitamin D deficiency; Translations: [Vitamin D deficiency, unspecified] Chronic Nutritional deficiencies (2 sources) Cobalamin deficiency; Translations: [Deficiency of other specified B group vitamins] Onset: 03-17-2023 03-17-2023 Episodic Other connective tissue disease (1 source) Swelling of upper arm ; Translations: [Other specified soft tissue disorders] Episodic Other endocrine disorders (20 sources) Hypoparathyroidism; Translations: [Hypoparathyroidism, unspecified] Onset: 09-06-2007 09-06-2007 Chronic Other inflammatory condition of skin (7 sources) Scalp psoriasis; Translations: [Psoriasis, unspecified] Onset: 12-10-2022 12-09-2022 Chronic Other liver diseases (6 sources) Steatosis of liver; Translations: [Fatty (change of) liver, not elsewhere classified] Onset: 12-10-2022 12-09-2022 Chronic Other nutritional; endocrine; and metabolic disorders (5 sources) Body mass index 40+ - severely obese; Translations: [Morbid (severe) obesity due to excess calories] Onset: 12-09-2022 12-09-2022 Chronic Residual codes; unclassified (1 source) Bilateral lower limb edema; Translations: [Localized edema] Episodic Spondylosis; intervertebral disc disorders; other back problems (20 sources) Degeneration of lumbosacral intervertebral disc; Translations: [Other intervertebral disc degeneration, lumbosacral region] Onset: 01-26-2013 01-26-2013 Chronic Past or Other Problems Problem Classification Problem Date Documented Da te Episodic/Chronic Abdominal pain (20 sources) Right upper quadrant pain; Translations: [Right upper quadrant pain] Onset: 10-23-2017 01-13-2018 Episodic Biliary tract disease (7 sources) Cholelithiasis without obstruction; Translations: [Calculus of gallbladder without cholecystitis without obstruction] Onset: 09-18-2022 09-18-2022 Episodic Immunizations and screening for infectious disease (1 source) Encounter for screening for human papillomavirus (HPV); Translations: [Special screening examination for human papillomavirus (HPV)] Onset: 10-03-2022 Episodic Malaise and fatigue (6 sources) Fatigue; Translations: [Other fatigue] Onset: 09-18-2022 09-18-2022 Episodic Other bone disease and musculoskeletal deformities (20 sources) Cervical somatic dysfunction; Translations: [Segmental and somatic dysfunction of cervical region] Onset: 02-13-2021 02-13-2021 Episodic Other bone disease and musculoskeletal deformities (20 sources) Somatic dysfunction of thoracic region; Translations: [Segmental and somatic dysfunction of thoracic region] Onset: 02-13-2021 02-13-2021 Episodic Other connective tissue disease (7 sources) Muscle pain; Translations: [Myalgia, unspecified site] Onset: 09-18-2022 09-18-2022 Episodic Other inflammatory condition of skin (20 sources) Seborrheic dermatitis; Translations: [Seborrheic dermatitis, unspecified] Onset: 06-15-2013 06-15-2013 Episodic Other nervous system disorders (20 sources) Disorder of smell; Translations: [Unspecified disturbances of smell and taste] Onset: 12-28-2012 12-28-2012 Episodic Other screening for suspected conditions (not mental disorders or infectious disease) (9 sources) Patient encounter status; Translations: [Encounter for screening for other suspected endocrine disorder] Onset: 10-03-2022 Episodic Spondylosis; intervertebral disc disorders; other back problems (20 sources) Neck pain; Translations: [Cervicalgia] Onset: 01-16-2016 02-13-2021 Episodic Results Test Name Value Interpretation Reference Range Facil ity Vital Signs Date Time Vital Sign Value Performing Clinician Mitzy da silva 03-17-2023 09:56-0500 Body temperature 96.4 [degF] Brendon Blakely DO Work Phone: [facility] 03-17-2023 09:56-0500 Body weight 123.38 kg Brendon Blakely DO Work Phone: [facility] 03-17-2023 09:56-0500 Diastolic blood pressure 90 mm[Hg] Brendon Blakely DO Work Phone: [facility] 03-17-2023 09:56-0500 Heart rate 88 /min Brendon Blakely DO Work Phone: [facility] 03-17-2023 09:56-0500 Respiratory rate 16 /min Brendon Blakely DO Work Phone: [facility] 03-17-2023 09:56-0500 Systolic blood pressure 146 mm[Hg] Brendon Blakely DO Work Phone: [facility] 12-09-2022 14:15-0400 Body height 166 cm Brendon Blakely DO Work Phone: [facility] 12-09-2022 14:15-0400 Body temperature 98.71 [degF] Brendon Blakely DO Work Phone: [facility] 12-09-2022 14:15-0400 Body weight 127.01 kg Brendon Blakely DO Work Phone: [facility] 12-09-2022 14:15-0400 Diastolic blood pressure 94 mm[Hg] Brendon Blakely DO Work Phone: [facility] 12-09-2022 14:15-0400 Heart rate 80 /min Brendon Blakely DO Work Phone: [facility] 12-09-2022 14:15-0400 Respiratory rate 20 /min Brendon Blakely DO Work Phone: [facility] 12-09-2022 14:15-0400 Systolic blood pressure 146 mm[Hg] Brendon Blakely DO Work Phone: [facility] 10-03-2022 15:18-0400 Body height 166.4 cm Teri Wasserman MD Work Phone: [facility] 10-03-2022 15:18-0400 Body weight 126.06 kg Teri Wasserman MD Work Phone: [facility] 10-03-2022 15:18-0400 Diastolic blood pressure 84 mm[Hg] Teri Wasserman MD Work Phone: [facility] 10-03-2022 15:18-0400 Systolic blood pressure 132 mm[Hg] Teri Wasserman MD Work Phone: [facility] 05-08-2022 12:35-0500 Body weight 125.28 kg Erich Rizzo LATIN AMERICAN STUDIES DIRECTOR.DROP BOARD WORKER Work Phone: [facility] 05-08-2022 12:35-0500 Diastolic blood pressure 78 mm[Hg] Erich Rizzo LAT[employer] STUDIES DIRECTOR.DROP BOARD WORKER Work Phone: [facility] 05-08-2022 12:35-0500 Heart rate 60 /min Erich Rizzo LAT[employer] STUDIES DIRECTOR.DROP BOARD WORKER Work Phone: [facility] 05-08-2022 12:35-0500 Respiratory rate 16 /min Erich Rizzo LAT[employer] AMER[employer] STUDIES DIRECTOR.DROP BOARD WORKER Work Phone: [facility] 05-08-2022 12:35-0500 Systolic blood pressure 138 mm[Hg] Erich Rizzo LAT[employer] AMERICAN STUDIES DIRECTOR.DROP BOARD WORKER Work Phone: [facility] 10-25-2021 14:08-0400 Body weight 122.29 kg Erich Zurawick LAT[employer] AMERICAN STUDIES DIRECTOR.DROP BOARD WORKER Work Phone: [facility] 10-25-2021 14:08-0400 Diastolic blood pressure 64 mm[Hg] Erich Zurawick LAT[employer] AMER[employer] STUDIES DIRECTOR.DROP BOARD WORKER Work Phone: [facility] 10-25-2021 14:08-0400 Heart rate 72 /min Erich Zurawick LATIN AMERICAN STUDIES DIRECTOR.DROP BOARD WORKER Work Phone: [facility] 10-25-2021 14:08-0400 Respiratory rate 16 /min Erich Zurawick LATIN AMERICAN STUDIES DIRECTOR.DROP BOARD WORKER Work Phone: [facility] 10-25-2021 14:08-0400 Systolic blood pressure 138 mm[Hg] Erich Zurawick LATIN AMERICAN STUDIES DIRECTOR.DROP BOARD WORKER Work Phone: [facility] 09-18-2021 17:02-0400 Body weight 122.96 kg Erich Zurawick LATIN AMERICAN STUDIES DIRECTOR.DROP BOARD WORKER Work Phone: [facility] 09-18-2021 17:02-0400 Diastolic blood pressure 90 mm[Hg] Erich Zurawick LATIN AMERICAN STUDIES DIRECTOR.DROP BOARD WORKER Work Phone: [facility] 09-18-2021 17:02-0400 Heart rate 64 /min Erich Zurawick LATIN AMERICAN STUDIES DIRECTOR.DROP BOARD WORKER Work Phone: [facility] 09-18-2021 17:02-0400 Respiratory rate 18 /min Erich Zurawick LATIN AMERICAN STUDIES DIRECTOR.DROP BOARD WORKER Work Phone: [facility] 09-18-2021 17:02-0400 Systolic blood pressure 142 mm[Hg] Erich Zurawick LATIN AMERICAN STUDIES DIRECTOR.DROP BOARD WORKER Work Phone: [facility] Encounters Encounter Date Encounter Type Care Provider Facility Start: 03-17-2023 End: 03-17-2023 ambulatory BRENDON BLAKELY Facility:[facility] [place] Start: 03-17-2023 End: 03-17-2023 Patient encounter procedure Brendon Blakely DO Work Phone: [facility] [place] Procedures Date Procedure Procedure Detail Performing Clinician Start: 09-23-2022 Mammography Teri hines MD Work Phone: Start: 02-06-2021 Mammography Erich Ha hughes LAT[employer]UDIES DIRECTOR.DROP BOARD WORKER Work Phone: Start: 10-03-2019 Colonoscopy Erichmarkel hughes LATIN AMERICAN STUDIES DIRECTOR.DROP BOARD WORKER Work Phone: Start: 10-12-2018 Lipid 1996 panel - S nan or Plasma Brendon Blakely DO Work Phone: Plan of Treatment Date Care Activity Detail Author Start: 10-04-2027 HPV TESTING HPV TESTING [facility] Start: 10-04-2027 PAP TESTING PAP TESTING [facility] Start: 03-17-2024 Annual PCP Team [place] g[facility] Disease Visit Annual PCP Team Chronic Disease Visit [facility] Start: 03-17-2024 Covid-19 Vaccine ( season) Covid-19 Vaccine ( season) [facility] Immunizations Immunization Date Immunization Notes Care Provider [place] day 02-19-2022 influenza virus vacc ine, unspecified formulation Brendon Blakely DO Work Phone: [facility] 01-12-2013 tetanus toxoid, redu angela diphtheria toxoid, and acellular pertussis vaccine, adsorbed Erich Zurawick LAT[employer] STUDIES DIRECTOR.DROP BOARD WORKER Work Phone: [facility] Payers Date Payer Category Payer Private Health Insurance [id number] 2018 Private Health Insurance [employer] PPO [id number] 2018-Present [phone] [address] [place] [address] O [id number] 2018 Private Health Insurance [id number] 2018 Private Health Insurance [id number] Social History Date Type Detail Facility Start: 12-28-2012 End: 10-03-2022 Tobacco smoking status NHIS Ex-smoker [facility] Work Phone: End: 05-04-2002 History of tobacco use Current smoker [facility] Work Phone: Start: 12-28-2012 End: 09-15-2022 Cigarettes smoked current (pack per day) - Reported 0.5 [facility] Start: 12-28-2012 End: 10-03-2022 Tobacco use and exposure Smokeless tobacco non-user [facility] Work Phone: Start: 01-23-2021 End: 03-17-2023 Alcohol intake Current non-drinker of alcohol (finding) [facility] Start: 07-13-2020 End: 05-08-2022 History SDOH Alcohol Frequency 1 [facility] Start: 07-13-2020 End: 05-08-2022 History SDOH Social Connections Phone 2 [facility] Start: 07-13-2020 End: 05-08-2022 History SDOH Social Connections Living 5 [facility] Start: 07-13-2020 End: 05-08-2022 History SDOH Physical Activity DPW 0 [facility] Start: 07-13-2020 End: 05-08-2022 History SDOH Financial 4 [facility] Start: 06-01-2019 Education 21 [facility] Start: 1970 Sex Assigned At Not on file [facility] Start: 09-18-2021 History SDOH Alcohol Std Drinks 98 [facility] Start: 09-18-2021 History SDOH Financial 3 [facility] Start: 09-08-2021 End: 10-25-2021 Exposure to SARS-CoV-2 (event) Not sure [facility] End: 05-04-2002 History of tobacco use Cigarette Smoker [facility] Work Phone: Start: 05-08-2022 End: 09-15-2022 Social connection and isolation panel [facility] Do you belong to any clubs or organizations such as tenriism groups, unions, fraternal or athletic groups, or school groups? No [facility] Are you now , , , , never or living with a partner? [facility] How often to you hav e a drink containing alcohol? Never [facility] How many standard dr inks containing alcohol do you have on a typical day? Patient does not drink [facility] How hard is it for y ou to pay for the very basics like food, housing, medical care, and heating Not very hard [facility] Do you feel stress - tense, restless, nervous, or anxious, or unable to sleep at night because your mind is troubled all the time - these days [OSQ] Rather much [facility] (I/We) worried [place] er (my/our) food would run out before (I/we) got money to buy more. Never true [facility] Clinical Notes 04-22-2017 to 03-17-2023 Brendon Blakely DO - 03/17/2023 11:55 AM ESTTelephone Encounter - Irene Pisano Ma - 02/02/2023 11:37 AM EDTTelephone Encounter - Irene Pisano Ma - 01/15/2023 3:35 PM EDT Note Date & Type Note Facility 03-17-2023 Note HNO ID: [id number] Author: Brendon Blakely DO Service: ? Author Type: Physician Type: Progress Notes Filed: 03/17/2023 12:02 PM Note Text: CC: Danni Long is a 52 year old female who presents to the office for follow up HPI: At last OFFICE VISIT in Dec 2022 Mood, managed currently by Dr. Bellamy Psychiatrist at [facility]. She has been changed to Pristiq medication and is tolerating this well. Feels her mood is improved now. Hx of gallbladder stones and sludge, had recent RUQ US which confirms this. Hasn't had recent HIDA. Tries to eat low fat diet. Did show concerns for fatty liver changes- hasn't been assessed with Elastography in the past for this- would be interested in this as well. No nausea or vomiting or bowel changes. Myalgias, comes and goes, not daily. Use of ibuprofen rarely which does help symptoms. Labs showed normal muscle enzymes and other labs except for mildly high CRP levels. Otherwise normal. Hasn't seen Quality Assurance Nurse yet. Hyperparathyroidism, CKD, sees Dr. Amaya for Nephrology and Dr. Benítez for Endocrinology Elevated BLOOD PRESSURE, taking losartan as prescribed. Has noticed it to be 140s/90s at home when checking BLOOD PRESSURE as well. No CP or dyspnea or dizziness/LH or edema. Scalp itching, has tried ketoconazole shampoo and Ttree oil and other products OTC without relief Currently HTN, continues to have some mildly elevated BLOOD PRESSURE, is taking her 100 mg of losartan and 30 mg of diltiazem as well as 25 mg of spironolactone. Is asymptomatic- no CP or dyspnea or dizziness/LH. CKD, hyperparathyroidism, takinc her Calcitriol medication. Has follow up with DR. Amaya for [facility] in Apr. IFG, a1c in July 2022 was at 5.8%. has seen Recruiting Administrator Dr. Benítez for this last lab check Mood, seeing Psychiatrist Dr. Bellamy, feels it is stable. Does feel like the pristique medication is causing her to have some constipation/bloating but she feels this is managed and mild. Scalp psoriasis, stable. Recently had kenalog injection due to flare up per Dr. 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 Has a follow up tomorrow. PAST MEDICAL HISTORY Diagnosis Date Anemia likely due to iron deficiency Anxiety Dermatitis, seborrheic HTN (hypertension) 11/23/2017 Hypoparathyroidism (HCC) Nasal polyps Dr. Sheth ENT, CT sinuses 11/20/12 Panic attacks Vitamin D deficiency PAST SURGICAL HISTORY Procedure Laterality Date ADENOIDECTOMY PRIMARY AGE 13/ OFFICE ENDOMETRIAL ABLATION 02/2017 Ela endometrial ablation TOOTH EXTRACTION Current Outpatient Medications Medication Sig losartan (COZAAR) 100 mg tablet Take 1 tablet by mouth once daily. meloxicam (MOBIC) 15 mg tablet Take 1 tablet by mouth once daily. As needed for joint pain, Take with food. NIFEdipine ER (PROCARDIA XL) 30 mg 24 hr tablet Take 1 tablet by mouth daily at bedtime. For blood pressure Clobetasol Propionate (TEMOVATE) 0.05 % external solution Apply 1 application to affected area twice daily. On scalp calcitriol (ROCALTROL) 0.5 mcg capsule Take 0.5 mcg by mouth three times daily. desvenlafaxine ER (PRISTIQ) 100 mg 24 hr tablet triamcinolone acetonide (KENALOG) 0.1 % ointment Apply to affected area twice daily. For 10-14 days. clonazePAM (KLONOPIN) 0.5 mg tablet Take 1 tablet by mouth once daily as needed for up to 30 days. calcium carbonate/vitamin D3 (CALCIUM 500 + D ORAL) Take 2 Each by mouth once daily. cyclobenzaprine (FLEXERIL) 10 mg tablet Take 1 tablet by mouth three times daily as needed for Muscle Spasm. mirtazapine (REMERON) 15 mg tablet Take 30 mg by mouth daily at bedtime. Per Psych- Keyur Dubon, DROP BOARD WORKER ketoconazole (NIZORAL) 2 % cream Apply 1 application to affected area daily before breakfast. hydrocortisone 2.5 % cream Apply 1 application to affected area daily at bedtime. Location: facial, avoid eyes/lips spironolactone (ALDACTONE) 50 mg tablet Take 1 tablet by mouth once daily. No current facility-administered medications for this visit. ALLERGIES Allergen Reactions Latex Hives Penicillins Shortness of Breath Prednisone GI Upset, Other: See Comments [place] jittery Wellbutrin [Bupropi* Other: See Comments sweating Social History Tobacco Use Smoking status: Former Packs/day: 0.50 Years: 12.00 Additional pack years: 0.00 Total pack years: 6.00 Types: Cigarettes Quit date: 05/04/2002 Years since quittin.8 Smokeless tobacco: Never Vaping Use Vaping Use: Never used Substance Use Topics Alcohol use: No Drug use: No ROS: See HPI PE: BP 146/90 Pulse 88 Temp (Src) 96.4 (Left Tympanic) Resp 16 Wt 272 lb (123.4kg) LMP 08/09/2022 Gen: AANDOX3, NAD, non-toxic appearing HEENT: PERRLA, EOMs intact b/l, nares without drainage, pharynx without erythema, exudate, lesions, or drainage. Uvula midline. Neck: No LAD, no thyromegaly, no meningismus. CV: RRR, n (more content not included)... [facility] 03-17-2023 History of Present illness Narrative CC: Danni Long is a 52 year old female who presents to the office for follow up HPI: At last OFFICE VISIT in Dec 2022 Mood, managed currently by Dr. Bellamy Psychiatrist at [facility]. She has been changed to Pristiq medication and is tolerating this well. Feels her mood is improved now. Hx of gallbladder stones and sludge, had recent RUQ US which confirms this. Hasn't had recent HIDA. Tries to eat low fat diet. Did show concerns for fatty liver changes- hasn't been assessed with Elastography in the past for this- would be interested in this as well. No nausea or vomiting or bowel changes. Myalgias, comes and goes, not daily. Use of ibuprofen rarely which does help symptoms. Labs showed normal muscle enzymes and other labs except for mildly high CRP levels. Otherwise normal. Hasn't seen Quality Assurance Nurse yet. Hyperparathyroidism, CKD, sees Dr. Amaya for Nephrology and Dr. eBnítez for Endocrinology Elevated BLOOD PRESSURE, taking losartan as prescribed. Has noticed it to be 140s/90s at home when checking BLOOD PRESSURE as well. No CP or dyspnea or dizziness/LH or edema. Scalp itching, has tried ketoconazole shampoo and Ttree oil and other products OTC without relief Currently HTN, continues to have some mildly elevated BLOOD PRESSURE, is taking her 100 mg of losartan and 30 mg of diltiazem as well as 25 mg of spironolactone. Is asymptomatic- no CP or dyspnea or dizziness/LH. CKD, hyperparathyroidism, takinc her Calcitriol medication. Has follow up with DR. Amaya for [facility] in Apr. IFG, a1c in July 2022 was at 5.8%. has seen Recruiting Administrator Dr. Benítez for this last lab check Mood, seeing Psychiatrist Dr. Bellamy, feels it is stable. Does feel like the pristique medication is causing her to have some constipation/bloating but she feels this is managed and mild. Scalp psoriasis, stable. Recently had kenalog injection due to flare up per Dr. 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 Has a follow up tomorrow. PAST MEDICAL HISTORY Diagnosis Date Anemia likely due to iron deficiency Anxiety Dermatitis, seborrheic HTN (hypertension) 11/23/2017 Hypoparathyroidism (HCC) Nasal polyps Dr. Sheth ENT, CT sinuses 11/20/12 Panic attacks Vitamin D deficiency PAST SURGICAL HISTORY Procedure Laterality Date ADENOIDECTOMY PRIMARY AGE 13/> OFFICE ENDOMETRIAL ABLATION 02/2017 Ela endometrial ablation TOOTH EXTRACTION Current Outpatient Medications Medication Sig losartan (COZAAR) 100 mg tablet Take 1 tablet by mouth once daily. meloxicam (MOBIC) 15 mg tablet Take 1 tablet by mouth once daily. As needed for joint pain, Take with food. NIFEdipine ER (PROCARDIA XL) 30 mg 24 hr tablet Take 1 tablet by mouth daily at bedtime. For blood pressure Clobetasol Propionate (TEMOVATE) 0.05 % external solution Apply 1 application to affected area twice daily. On scalp calcitriol (ROCALTROL) 0.5 mcg capsule Take 0.5 mcg by mouth three times daily. desvenlafaxine ER (PRISTIQ) 100 mg 24 hr tablet triamcinolone acetonide (KENALOG) 0.1 % ointment Apply to affected area twice daily. For 10-14 days. clonazePAM (KLONOPIN) 0.5 mg tablet Take 1 tablet by mouth once daily as needed for up to 30 days. calcium carbonate/vitamin D3 (CALCIUM 500 + D ORAL) Take 2 Each by mouth once daily. cyclobenzaprine (FLEXERIL) 10 mg tablet Take 1 tablet by mouth three times daily as needed for Muscle Spasm. mirtazapine (REMERON) 15 mg tablet Take 30 mg by mouth daily at bedtime. Per Psych- Keyur Dubon, FADI ketoconazole (NIZORAL) 2 % cream Apply 1 application to affected area daily before breakfast. hydrocortisone 2.5 % cream Apply 1 application to affected area daily at bedtime. Location: facial, avoid eyes/lips spironolactone (ALDACTONE) 50 mg tablet Take 1 tablet by mouth once daily. No current facility-administered medications for this visit. ALLERGIES Allergen Reactions Latex Hives Penicillins Shortness of Breath Prednisone GI Upset, Other: See Comments [place] jittery Wellbutrin [Bupropi* Other: See Comments sweating Social History Tobacco Use Smoking status: Former Packs/day: 0.50 Years: 12.00 Additional pack years: 0.00 Total pack years: 6.00 Types: Cigarettes Quit date: 05/04/2002 Years since quittin.8 Smokeless tobacco: Never Vaping Use Vaping Use: Never used Substance Use Topics Alcohol use: No Drug use: No ROS: See HPI PE: BP 146/90 Pulse 88 Temp (Src) 96.4 (Left Tympanic) Resp 16 Wt 272 lb (123.4kg) LMP 08/09/2022 Gen: A&OX3, NAD, non-toxic appearing HEENT: PERRLA, EOMs intact b/l, nares without drainage, pharynx without erythema, exudate, lesions, or drainage. Uvula midline. Neck: No LAD, no thyromegaly, no meningismus. CV: RRR, no murmur Lungs: CTA b/l, no wheezing Skin: few scattered scalp and under breast and left leg psoriasis patches. Central obesity, NT abdomen, normal BS No edema legs, normal peripheral pulses ASSESSMENT/PLAN: 1. Borderline abnormal thyroid function test - ICD9: 794.5, ICD10: R94.6 (primary diagnosis) - check TSH, free T4, and Free T3 today - TSH BLD - T4 FREE/FREE THYROX - T3 FREE BLD 2. Vitamin B12 deficiency - ICD9: 266.2, ICD10: E53.8 Recehck labs, continue supplement - VITAMIN B12 BLOOD 3. Hypertension, essential - ICD9: 401.9, ICD10: I10 - Uncontrolled - Increase spironolactone - Recommend home blood pressure monitoring, to bring results to next visit - Encouraged sodium restriction, DASH or Mediterranean diet - Recommend regular aerobic exercise - Discussed need for and benefit of weight loss. BMI 44.77 kg/(m^2) 4. Scalp psoriasis - ICD9: 696.1, ICD10: L40.9 F/u with Derm, would have to only consider biologic that was renal protective due to her CKD 5. Mixed hyperlipidemia - ICD9: 272.2, ICD10: E78.2 - Uncontrolled - Continue current medications - Counseled on healthy diet and regular exercise 6. Hypoparathyroidism, unspecified hypoparathyroidism type (HCC) - ICD9: 252.1, ICD10: E20.9 F/u with Dr. Amaya 7. Fatty liver - ICD9: 571.8, ICD10: K76.0 Need for continued weight loss efforts. 8. Stage 3a chronic kidney disease (HCC) - ICD9: 585.3, ICD10: N18.31 - eGFR: Stable - Counseled on avoiding NSAIDs, adequate hydration 9. Situational anxiety - ICD9: 300.09, ICD10: F41.8 Stable, f/u with Dr. Bellamy Psychiatrist Brendon Blakely DO Return if no improvement. Follow up with Brendon Blakely DO. To ER if develops chest pain, shortness of breath. Discussed risks, benefits, alternatives, and potential side effects of medications. Patient/Guardian expressed understanding and agreed with the plan. See patient instructions. Brendon Blakely DO [address] [place] [address] documented in this encounter [facility] 02-02-2023 Miscellaneous Notes Last office visit: 12/09/22 F/u scheduled: 03/17/23 Irene Pisano Ma documented in this encounter [facility] 01-15-2023 Miscellaneous Notes Referral, OV, Demo, med list, faxed to Dr. David Zelaya's office. Pt notified via [facility]. Irene Pisano Ma Consult placed. Please fax. Please also include office note from 12/09/[address] Blakely. Let pt know once completed. Thank you, Erich Rizzo APRN.DROP BOARD WORKER documented in this encounter [facility] 12-10-2022 Note HNO ID: [id number] Author: Brendon Blakely, DO Service: ? Author Type: Physician Type: Progress Notes Filed: 12/10/2022 7:24 AM Note Text: CC: Danni Long is a 52 year old female who presents to the office for physical HPI: Seen in office last on 09/15/2022, at that time Muscle aches, all over body, like I pulled every muscle in my body. Comes and goes, present for the last 6-8 weeks. No rashes, some swelling in hands and feet. Worse pain in the morning when getting ready to go to bed. No known injuries. No obvious redness. Is frustrated because it is affecting her ability to get things done at home and trouble getting comfortable to sleep. Also hx of gallbladder sludge and stones, has had some increased occasional intermittent upper abdominal discomfort and nausea, hasn't been able to determine specific food triggers or cause, no vomiting. Mood, chronic depression/anxiety and panic symptoms, has been seeing Psychiatrist LAY OUT FORMER Jorden Dubon at [facility] in the past. Her LAY OUT FORMER moved to different location so now has recently Had medication change from Zoloft to Pristiq in Jun by Dr. Bellamy Psychiatrist. Doesn't know if this is affecting her symptoms above. Currently Mood, managed currently by Dr. Bellamy Psychiatrist at [facility]. She has been changed to Pristiq medication and is tolerating this well. Feels her mood is improved now. Hx of gallbladder stones and sludge, had recent RUQ US which confirms this. Hasn't had recent HIDA. Tries to eat low fat diet. Did show concerns for fatty liver changes- hasn't been assessed with Elastography in the past for this- would be interested in this as well. No nausea or vomiting or bowel changes. Myalgias, comes and goes, not daily. Use of ibuprofen rarely which does help symptoms. Labs showed normal muscle enzymes and other labs except for mildly high CRP levels. Otherwise normal. Hasn't seen Quality Assurance Nurse yet. Hyperparathyroidism, CKD, sees Dr. Amaya for Nephrology and Dr. Benítez for Endocrinology Elevated BLOOD PRESSURE, taking losartan as prescribed. Has noticed it to be 140s/90s at home when checking BLOOD PRESSURE as well. No CP or dyspnea or dizziness/LH or edema. Scalp itching, has tried ketoconazole shampoo and Ttree oil and other products OTC without relief PAST MEDICAL HISTORY Diagnosis Date Anemia likely due to iron deficiency Anxiety Dermatitis, seborrheic HTN (hypertension) 11/23/2017 Hypoparathyroidism (HCC) Nasal polyps Dr. Sheth ENT, CT sinuses 11/20/12 Panic attacks Vitamin D deficiency PAST SURGICAL HISTORY Procedure Laterality Date ADENOIDECTOMY PRIMARY AGE 13/> OFFICE ENDOMETRIAL ABLATION 02/2017 Ela endometrial ablation TOOTH EXTRACTION Social History: Social History Tobacco Use Smoking status: Former Packs/day: 0.50 Years: 12.00 Total pack years: 6.00 Types: Cigarettes Quit date: 05/04/2002 Years since quittin.6 Smokeless tobacco: Never Vaping Use Vaping Use: Never used Substance Use Topics Alcohol use: No Drug use: No FAMILY HISTORY Problem Relation Age of Onset Diabetes Mother Hypertension Mother Lipids Mother Diabetes Brother Asthma Brother Diabetes Brother Current Outpatient prescriptions: losartan (COZAAR) 100 mg tablet Take 1 tablet by mouth once daily. calcitriol (ROCALTROL) 0.5 mcg capsule Take 0.5 mcg by mouth three times daily. desvenlafaxine ER (PRISTIQ) 100 mg 24 hr tablet triamcinolone acetonide (KENALOG) 0.1 % ointment Apply to affected area twice daily. For 10-14 days. clonazePAM (KLONOPIN) 0.5 mg tablet Take 1 tablet by mouth once daily as needed for up to 30 days. spironolactone (ALDACTONE) 25 mg tablet Take 25 mg by mouth once daily. calcium carbonate/vitamin D3 (CALCIUM 500 + D ORAL) Take 2 Each by mouth once daily. cyclobenzaprine (FLEXERIL) 10 mg tablet Take 1 tablet by mouth three times daily as needed for Muscle Spasm. mirtazapine (REMERON) 15 mg tablet Take 30 mg by mouth daily at bedtime. Per Psych- Keyur Dubon, FADI ketoconazole (NIZORAL) 2 % cream Apply 1 application to affected area daily before breakfast. hydrocortisone 2.5 % cream Apply 1 application to affected area daily at bedtime. Location: facial, avoid eyes/lips meloxicam (MOBIC) 15 mg tablet Take 1 tablet by mouth once daily. As needed for joint pain, Take with food. NIFEdipine ER (PROCARDIA XL) 30 mg 24 hr tablet Take 1 tablet by mouth daily at bedtime. For blood pressure Clobetasol Propionate (TEMOVATE) 0.05 % external solution Apply 1 application to affected area twice daily. On scalp Allergies: ALLERGIES Allergen Reactions Latex Hives Penicillins Shortness of Breath Prednisone GI Upset, Other: See Comments [place] jittery Wellbutrin [Bupropi* Other: See Comments sweating ROS: See HPI PE: 12/09/22 1415 BP: 146/94 Pulse: 80 Resp: 20 Temp: 37.1 ?C (98.7 ?F) TempSrc: Left Tympanic Weight: 127 (more content not included)... [facility] 12-10-2022 History of Present illness Narrative CC: Danni Long is a 52 year old female who presents to the office for physical HPI: Seen in office last on 09/15/2022, at that time Muscle aches, all over body, like I pulled every muscle in my body. Comes and goes, present for the last 6-8 weeks. No rashes, some swelling in hands and feet. Worse pain in the morning when getting ready to go to bed. No known injuries. No obvious redness. Is frustrated because it is affecting her ability to get things done at home and trouble getting comfortable to sleep. Also hx of gallbladder sludge and stones, has had some increased occasional intermittent upper abdominal discomfort and nausea, hasn't been able to determine specific food triggers or cause, no vomiting. Mood, chronic depression/anxiety and panic symptoms, has been seeing Psychiatrist LAY OUT FORMER Jorden Dubon at [facility] in the past. Her LAY OUT FORMER moved to different location so now has recently Had medication change from Zoloft to Pristiq in Jun by Dr. Bellamy Psychiatrist. Doesn't know if this is affecting her symptoms above. Currently Mood, managed currently by Dr. Bellamy Psychiatrist at [facility]. She has been changed to Pristiq medication and is tolerating this well. Feels her mood is improved now. Hx of gallbladder stones and sludge, had recent RUQ US which confirms this. Hasn't had recent HIDA. Tries to eat low fat diet. Did show concerns for fatty liver changes- hasn't been assessed with Elastography in the past for this- would be interested in this as well. No nausea or vomiting or bowel changes. Myalgias, comes and goes, not daily. Use of ibuprofen rarely which does help symptoms. Labs showed normal muscle enzymes and other labs except for mildly high CRP levels. Otherwise normal. Hasn't seen Quality Assurance Nurse yet. Hyperparathyroidism, CKD, sees Dr. Amaya for Nephrology and Dr. Benítez for Endocrinology Elevated BLOOD PRESSURE, taking losartan as prescribed. Has noticed it to be 140s/90s at home when checking BLOOD PRESSURE as well. No CP or dyspnea or dizziness/LH or edema. Scalp itching, has tried ketoconazole shampoo and Ttree oil and other products OTC without relief PAST MEDICAL HISTORY Diagnosis Date Anemia likely due to iron deficiency Anxiety Dermatitis, seborrheic HTN (hypertension) 11/23/2017 Hypoparathyroidism (HCC) Nasal polyps Dr. Sheth ENT, CT sinuses 11/20/12 Panic attacks Vitamin D deficiency PAST SURGICAL HISTORY Procedure Laterality Date ADENOIDECTOMY PRIMARY AGE 13/> OFFICE ENDOMETRIAL ABLATION 02/2017 Ela endometrial ablation TOOTH EXTRACTION Social History: Social History Tobacco Use Smoking status: Former Packs/day: 0.50 Years: 12.00 Total pack years: 6.00 Types: Cigarettes Quit date: 05/04/2002 Years since quittin.6 Smokeless tobacco: Never Vaping Use Vaping Use: Never used Substance Use Topics Alcohol use: No Drug use: No FAMILY HISTORY Problem Relation Age of Onset Diabetes Mother Hypertension Mother Lipids Mother Diabetes Brother Asthma Brother Diabetes Brother Current Outpatient prescriptions: losartan (COZAAR) 100 mg tablet Take 1 tablet by mouth once daily. calcitriol (ROCALTROL) 0.5 mcg capsule Take 0.5 mcg by mouth three times daily. desvenlafaxine ER (PRISTIQ) 100 mg 24 hr tablet triamcinolone acetonide (KENALOG) 0.1 % ointment Apply to affected area twice daily. For 10-14 days. clonazePAM (KLONOPIN) 0.5 mg tablet Take 1 tablet by mouth once daily as needed for up to 30 days. spironolactone (ALDACTONE) 25 mg tablet Take 25 mg by mouth once daily. calcium carbonate/vitamin D3 (CALCIUM 500 + D ORAL) Take 2 Each by mouth once daily. cyclobenzaprine (FLEXERIL) 10 mg tablet Take 1 tablet by mouth three times daily as needed for Muscle Spasm. mirtazapine (REMERON) 15 mg tablet Take 30 mg by mouth daily at bedtime. Per Psych- Keyur Dubon, DROP BOARD WORKER ketoconazole (NIZORAL) 2 % cream Apply 1 application to affected area daily before breakfast. hydrocortisone 2.5 % cream Apply 1 application to affected area daily at bedtime. Location: facial, avoid eyes/lips meloxicam (MOBIC) 15 mg tablet Take 1 tablet by mouth once daily. As needed for joint pain, Take with food. NIFEdipine ER (PROCARDIA XL) 30 mg 24 hr tablet Take 1 tablet by mouth daily at bedtime. For blood pressure Clobetasol Propionate (TEMOVATE) 0.05 % external solution Apply 1 application to affected area twice daily. On scalp Allergies: ALLERGIES Allergen Reactions Latex Hives Penicillins Shortness of Breath Prednisone GI Upset, Other: See Comments [place] jittery Wellbutrin [Bupropi* Other: See Comments sweating ROS: See HPI PE: 12/09/22 1415 BP: 146/94 Pulse: 80 Resp: 20 Temp: 37.1 C (98.7 F) TempSrc: Left Tympanic Weight: 127 kg (280 lb) Height: 166 cm (5' 5.35 ) Gen: A&O, NAD, non-toxic appearing, Pleasant, cooperative HEENT: NT/AC, PERRLA, EOMs intact b/l, nares clear and patent b/l, pharynx without erythema, exudate or lesions. Uvula midline.MMM, EACs without erythema or debris. TMs pearly [place] with intact landmarks b/l. Neck: supple, No cervical LAD, no thyromegaly, no carotid bruits CV: RRR, normal S1 and S2, no murmurs, no gallops, no rubs, Pulses 2+ and symmetric in UE and LE b/l Lungs: normal respiratory effort, CTA b/l, no wheezing or rhonchi or rales Abd: soft, obese, NT, ND, +BS, no hepatosplenomegaly MS: FROM all 4 extremities Neuro: CN II-XII intact b/l, strength 5/5 b/l UE and LE, DTRs 2/4 UE and LE, sensation intact. Skin: warm, dry, intact, No rashes or lesions on exposed skin. Scalp psoriasis is present No edema, normal pulses ASSESSMENT/PLAN: 1. Routine physical examination - ICD9: V70.0, ICD10: Z00.00 (primary diagnosis) - Counseled on healthy diet and regular exercise - Calcium intake with supplements or by diet of 1000 mg/day for under 50, 1797-2067 mg/day for 50+ - Discussed need and benefit for weight loss. BMI 46.09 kg/(m^2) 2. Hypertension, essential - ICD9: 401.9, ICD10: I10 - Uncontrolled - Worsening control - Factors affecting control: diet adherence and lack of exercise - Continue current medications - Start nifedipine - Recommend home blood pressure monitoring, to bring results to next visit - Encouraged sodium restriction, DASH or Mediterranean diet - Recommend regular aerobic exercise - NIFEDIPINE ER 30 MG TABLET,EXTENDED RELEASE 24 HR 3. Myalgia - ICD9: 729.1, ICD10: M79.10 Mildly high CRP, consider seeing Quality Assurance Nurse if worsening, start on only prn use not daily use of meloxicam, she is aware of r/b/i - MELOXICAM 15 MG TABLET 4. Mixed hyperlipidemia - ICD9: 272.2, ICD10: E78.2 - Control undetermined, due for labs - Continue current medications - Counseled on healthy diet and regular exercise 5. Hypoparathyroidism, unspecified hypoparathyroidism type (HCC) - ICD9: 252.1, ICD10: E20.9 - f/u with Michael Benítez Recruiting Administrator 6. Fatty liver - ICD9: 571.8, ICD10: K76.0 Need for further testing with elastography, found on recent US of gallbladder testing, she needs weight loss which was d/w her today as well. - US ABD RIGHT UPPER QUADRANT - US ELASTOGRAPHY LIVER 7. Obesity, Class III, BMI >= 40 - ICD9: 278.01, ICD10: E66.01 Stable - Behavioral intervention, - PSMF, and - Eat well program Consider starting weight loss medication 8. Calculus of gallbladder without cholecystitis without obstruction - ICD9: 574.20, ICD10: K80.20 Need for HIDA, only occasionally symptomatic - NM HEPATOBILIARY W EF AND/OR RX 9. Scalp psoriasis - ICD9: 696.1, ICD10: L40.9 - rx as below, consider seeing House Supervisor if worsens - CLOBETASOL 0.05 % SCALP SOLUTION Brendon Blakely DO To ER if develops chest pain, shortness of breath, or severe worsening of symptoms. Discussed risks, benefits, alternatives, and potential side effects of medications. Patient expressed understanding and agreed with the plan. Brendon Blakely DO [address] [place] [address] documented in this encounter [facility] 10-27-2022 Miscellaneous Notes Daniel--09/15/22 Nov--12/09/22 Last refill--08/04/22 90 with 0 refills Last labs--09/08/22 documented in this encounter [facility] 10-03-2022 Note HNO ID: [id number] Author: Teri Wasserman MD Service: ? Author Type: Physician Type: Progress Notes Filed: 10/03/2022 3:49 PM Note Text: Water Quality Technician offered: Patient declines. Danni is a 51 year old who presents for an annual gynecologic exam. She reports intermittent vulvar itching for the past 6 years. Postmenopausal: No. Menstrual cycle every 1-3 months Flow 5 days HRT use: No. Last Pap: 12/12/2016 normal HPV: 12/12/2016 negative History of abnormal pap: Yes with more than 25 years ago Last mammogram: 2022 normal History of abnormal mammogram: Yes OB History T0 L2 SAB0 IAB0 Ectopic0 Multiple0 Live Births0 English Division Chair History LMP: 08/09/2022, Ablation Age at Menarche: Age at First : Age at Menopause: English Division Chair History Comments: Sexual Activity: Not Currently; No partner data on record Contraception: No contraception data on record PAST MEDICAL HISTORY Diagnosis Date Anemia likely due to iron deficiency Anxiety Dermatitis, seborrheic HTN (hypertension) 11/23/2017 Hypoparathyroidism (HCC) Nasal polyps Dr. Sheth ENT, CT sinuses 11/20/12 Panic attacks Vitamin D deficiency PAST SURGICAL HISTORY Procedure Laterality Date ADENOIDECTOMY PRIMARY AGE 13 OFFICE ENDOMETRIAL ABLATION 02/2017 Ela endometrial ablation TOOTH EXTRACTION FAMILY HISTORY Problem Relation Age of Onset Diabetes Mother Hypertension Mother Lipids Mother Diabetes Brother Asthma Brother Diabetes Brother SOCIAL HISTORY Social History Tobacco Use Smoking status: Former Packs/day: 0.50 Years: 12.00 Pack years: 6.00 Types: Cigarettes Quit date: 05/04/2002 Years since quittin.4 Smokeless tobacco: Never Vaping Use Vaping Use: Never used Substance Use Topics Alcohol use: No Drug use: No REVIEW OF SYSTEMS Abdomen: No abdominal pain, nausea, vomiting, diarrhea, or constipation. No bloating, early satiety, indigestion, or increased flatulence. Bladder: No dysuria, gross hematuria, urinary frequency, urinary urgency, or incontinence Breast: No breast lumps, nipple d/c, overlying skin changes, redness or skin retraction Allergies and current medication updated:Yes EXAM: BP 132/84 Ht 5' 5.5 (1.66m) Wt 277 lb 14.4 oz (126.1kg) LMP 08/09/2022 BMI 45.53 kg/(m2). GENERAL: pleasant, female in no apparent distress BREAST: soft, non-tender, symmetric, no dominant mass, normal nipple-areolar complex, no lymphadenopathy, and no nipple discharge CHEST: Normal inspiratory effort ABDOMEN: soft, non-tender, and no masses PELVIC: external genitalia normal other than small (5mm) mobile lesion lower right labia majora c/w a sebaceous cyst, normal Bartholin's glands, urethra, Addis's glands, no vulvar lesions, no cervical lesions, good vaginal support, physiologic discharge present, normal appearing perineal body and perianal region BIMANUAL: uterus normal size, shape and consistency, no adnexal masses, and non-tender RECTOVAGINAL: deferred. NEURO: alert and oriented x3,exam grossly non-focal EXTREMITIES: normal ASSESSMENT/PLAN: 1) Health maintenance: Pap done with HPV. Mammogram up to date (gets at [facility]) Nutrition, exercise and routine health maintenance exams reviewed. Colon cancer screening: up to date with screening 2) Follow up one year or sooner as needed 3) Vulvar itching - advised on perineal hygiene AND rx kenalog ointment given. If fails to resolve within 10-14 days patient should call AND will proceed with a vulvar biopsy. 4) Sebaceous cyst - patient advised to use warm compresses AND call if enlarges Teri Wasserman MD [facility] 10-03-2022 Instructions Teri Wasserman MD - 10/03/2022 3:36 PM EDT Minimizing irritation of the vulva (area around the vagina) Wear white cotton underwear. Avoid synthetic fabrics and tight clothing. Sleep wearing shorts or pajama bottoms without underwear. Shower as soon as possible after exercise. Avoid clothing detergents and soaps with perfumes or dyes. Use warm (not hot) water to wash the vulva and if you use soap use a product designed for sensitive skin (like Dove or Cetaphil). Do not douche or use creams/powders in the vulvar area unless instructed by your physician. If you must douche, use only plain warm water. Make sure the vulva is dry before dressing by patting dry with a towel. Avoid vigorous rubbing with the towel. You may want to use the blow dryer (on the cool setting only!) on the vulva. The most important way to let your body heal is by avoiding scratching. Many patients find it difficult to avoid scratching at night when they are most aware of the itchiness. You can try taking Benadryl just before bedtime. Some women find it helpful to wear cotton gloves to bed to avoid scratching at night. documented in this encounter [facility] 10-03-2022 History of Present illness Narrative Water Quality Technician offered: Patient declines. Danni is a 51 year old who presents for an annual gynecologic exam. She reports intermittent vulvar itching for the past 6 years. Postmenopausal: No. Menstrual cycle every 1-3 months Flow 5 days HRT use: No. Last Pap: 12/12/2016 normal HPV: 12/12/2016 negative History of abnormal pap: Yes with more than 25 years ago Last mammogram: 2022 normal History of abnormal mammogram: Yes OB History T0 L2 SAB0 IAB0 Ectopic0 Multiple0 Live Births0 English Division Chair History LMP: 08/09/2022, Ablation Age at Menarche: Age at First : Age at Menopause: English Division Chair History Comments: Sexual Activity: Not Currently; No partner data on record Contraception: No contraception data on record PAST MEDICAL HISTORY Diagnosis Date Anemia likely due to iron deficiency Anxiety Dermatitis, seborrheic HTN (hypertension) 11/23/2017 Hypoparathyroidism (HCC) Nasal polyps Dr. Sheth ENT, CT sinuses 11/20/12 Panic attacks Vitamin D deficiency PAST SURGICAL HISTORY Procedure Laterality Date ADENOIDECTOMY PRIMARY AGE 13/ OFFICE ENDOMETRIAL ABLATION 02/2017 Ela endometrial ablation TOOTH EXTRACTION FAMILY HISTORY Problem Relation Age of Onset Diabetes Mother Hypertension Mother Lipids Mother Diabetes Brother Asthma Brother Diabetes Brother SOCIAL HISTORY Social History Tobacco Use Smoking status: Former Packs/day: 0.50 Years: 12.00 Pack years: 6.00 Types: Cigarettes Quit date: 05/04/2002 Years since quittin.4 Smokeless tobacco: Never Vaping Use Vaping Use: Never used Substance Use Topics Alcohol use: No Drug use: No REVIEW OF SYSTEMS Abdomen: No abdominal pain, nausea, vomiting, diarrhea, or constipation. No bloating, early satiety, indigestion, or increased flatulence. Bladder: No dysuria, gross hematuria, urinary frequency, urinary urgency, or incontinence Breast: No breast lumps, nipple d/c, overlying skin changes, redness or skin retraction Allergies and current medication updated:Yes EXAM: BP 132/84 Ht 5' 5.5 (1.66m) Wt 277 lb 14.4 oz (126.1kg) LMP 08/09/2022 BMI 45.53 kg/(m^2). GENERAL: pleasant, female in no apparent distress BREAST: soft, non-tender, symmetric, no dominant mass, normal nipple-areolar complex, no lymphadenopathy, and no nipple discharge CHEST: Normal inspiratory effort ABDOMEN: soft, non-tender, and no masses PELVIC: external genitalia normal other than small (5mm) mobile lesion lower right labia majora c/w a sebaceous cyst, normal Bartholin's glands, urethra, Addis's glands, no vulvar lesions, no cervical lesions, good vaginal support, physiologic discharge present, normal appearing perineal body and perianal region BIMANUAL: uterus normal size, shape and consistency, no adnexal masses, and non-tender RECTOVAGINAL: deferred. NEURO: alert and oriented x3,exam grossly non-focal EXTREMITIES: normal ASSESSMENT/PLAN: 1) Health maintenance: Pap done with HPV. Mammogram up to date (gets at [facility]) Nutrition, exercise and routine health maintenance exams reviewed. Colon cancer screening: up to date with screening 2) Follow up one year or sooner as needed 3) Vulvar itching - advised on perineal hygiene & rx kenalog ointment given. If fails to resolve within 10-14 days patient should call & will proceed with a vulvar biopsy. 4) Sebaceous cyst - patient advised to use warm compresses & call if enlarges Teri Wasserman MD documented in this encounter [facility] 09-15-2022 Note HNO ID: [id number] Author: Brendon Blakely, DO Service: ? Author Type: Physician Type: Progress Notes Filed: 09/18/2022 9:47 AM Note Text: CC: Danni Long is a 51 year old female who presents to the office for follow up HPI: Muscle aches, all over body, like I pulled every muscle in my body. Comes and goes, present for the last 6-8 weeks. No rashes, some swelling in hands and feet. Worse pain in the morning when getting ready to go to bed. No known injuries. No obvious redness. Is frustrated because it is affecting her ability to get things done at home and trouble getting comfortable to sleep. Also hx of gallbladder sludge and stones, has had some increased occasional intermittent upper abdominal discomfort and nausea, hasn't been able to determine specific food triggers or cause, no vomiting. Mood, chronic depression/anxiety and panic symptoms, has been seeing Psychiatrist LAY OUT FORMER Jorden Dubon at [facility] in the past. Her LAY OUT FORMER moved to different location so now has recently Had medication change from Zoloft to Pristiq in Jun by Dr. Bellamy Psychiatrist. Doesn't know if this is affecting her symptoms above. PAST MEDICAL HISTORY Diagnosis Date Anemia likely due to iron deficiency Anxiety Dermatitis, seborrheic HTN (hypertension) 11/23/2017 Hypoparathyroidism (HCC) Nasal polyps Dr. Sheth ENT, CT sinuses 11/20/12 Panic attacks Vitamin D deficiency PAST SURGICAL HISTORY Procedure Laterality Date ADENOIDECTOMY PRIMARY AGE 13/> OFFICE ENDOMETRIAL ABLATION 02/2017 Ela endometrial ablation TOOTH EXTRACTION Current Outpatient Medications Medication Sig losartan (COZAAR) 100 mg tablet Take 1 tablet by mouth once daily. clonazePAM (KLONOPIN) 0.5 mg tablet Take 1 tablet by mouth once daily as needed for up to 30 days. spironolactone (ALDACTONE) 25 mg tablet Take 25 mg by mouth once daily. calcium carbonate/vitamin D3 (CALCIUM 500 + D ORAL) Take 2 Each by mouth once daily. cyclobenzaprine (FLEXERIL) 10 mg tablet Take 1 tablet by mouth three times daily as needed for Muscle Spasm. sertraline (ZOLOFT) 25 mg tablet Take 2 tablets by mouth once daily. Total of 150 mg daily sertraline (ZOLOFT) 100 mg tablet Take 1 tablet by mouth once daily. Total dose of 150mg daily mirtazapine (REMERON) 15 mg tablet Take 30 mg by mouth daily at bedtime. Per Psych- Keyur Dubon, DROP BOARD WORKER ketoconazole (NIZORAL) 2 % cream Apply 1 application to affected area daily before breakfast. hydrocortisone 2.5 % cream Apply 1 application to affected area daily at bedtime. Location: facial, avoid eyes/lips No current facility-administered medications for this visit. ALLERGIES Allergen Reactions Latex Hives Penicillins Shortness of Breath Prednisone GI Upset, Other: See Comments [place] jittery Wellbutrin [Bupropi* Other: See Comments sweating Social History Tobacco Use Smoking status: Former Packs/day: 0.50 Years: 12.00 Pack years: 6.00 Types: Cigarettes Quit date: 05/04/2002 Years since quittin.3 Smokeless tobacco: Never Substance Use Topics Alcohol use: No Drug use: No ROS: Gen: Negative fevers or chills. See HPI PE: BP 138/84 Pulse 80 Temp (Src) 97 (Right Tympanic) Resp 20 Wt 281 lb (127.5kg) LMP 07/09/2017 Gen: AANDOX3, NAD, non-toxic appearing HEENT: PERRLA, EOMs intact b/l, nares without drainage, pharynx without erythema, exudate, lesions, or drainage. Uvula midline. Neck: No LAD, no thyromegaly, no meningismus. CV: RRR, no murmur Lungs: CTA b/l, no wheezing Skin: No rashes, lesions, or wounds on exposed skin. Proximal muscle soreness to touch upper arms and thighs Mild edema hands and lower legs and feet, non pitting, symmetric. Normal pulses Abd: soft, + mild epigastric and RUQ discomfort, no masses, normal BS ASSESSMENT/PLAN: 1. Myalgia - ICD9: 729.1, ICD10: M79.10 (primary diagnosis) Check labs as ordered, symptoms x 6-8 weeks, unsure cause. - C-REACTIVE PROTEIN (CRP) - CK CREATINE KINASE - MAGNESIUM BLD - VITAMIN D 25 HYDROXY - SAHARA BLOOD - RHEUMATOID FACTOR BL - SED RATE WESTERGREN - ALDOLASE BLD - URINALYSIS, WITH MICROSCOPIC - ANTI KATIE ID 2. Fatigue, unspecified type - ICD9: 780.79, ICD10: R53.83 - see above, check labs as ordered. 3. RUQ abdominal pain - ICD9: 789.01, ICD10: R10.11 - check repeat RUQ US, if symptoms continue then will need to have EGD and see Gastro or Gen surgeon for further evaluation - US ABD RIGHT UPPER QUADRANT 4. Calculus of gallbladder without cholecystitis without obstruction - ICD9: 574.20, ICD10: K80.20 - check repeat RUQ US, if symptoms continue then will need to have EGD and see Gastro or Gen surgeon for further evaluation - US ABD RIGHT UPPER QUADRANT Brendon Blakely, DO Return if no improvement. Follow up with Brendon Blakely, DO. To ER if develops chest pain, shortness of breath Discussed risks, benefits, alternatives, and p (more content not included)... [facility] 07-04-2022 Miscellaneous Notes Noted. Thank you, Erich Rizzo APRN.DROP BOARD WORKER Pt called and is notified of providers results and instructions. Pt voices understanding. Faxed labs over to [facility] Lab at [phone]. Pts A1C was 5.8 and PTH was 10. Mary Blair RN Left message for patient to return call Looks like rest of labs are scanned in chart. Abigail Orr Please call patient and let her know that I got lab work results back from [facility]. TSH is elevated at 5.25. I know patient follows with endocrinology -- please make pet feeder aware of this. I know pt has hx of Acute kidney injury while in the hospital this past summer -- BUN and CR are slightly elevated. GFR is very slightly low at 59. I would like pt to increase fluids and repeat this lab work in 2-4 weeks to recheck this status. I know she does not need to follow with utilization management nurse anymore so I just want to double check this. Cholesterol and triglycerides are also slightly elevated -- improving diet to include more green veggies and less fried, fatty foods will help. Lean protein is better than red meat. Limit red meat x 2-3x per week. I don't see hgA1c or PTH lab results that were ordered. Please check on this. Thank you, Erich Rizzo APRN.DROP BOARD WORKER documented in this encounter [facility] 07-03-2022 Note HNO ID: [id number] Author: Amira Reyna LPN Service: ? Author Type: ? Type: Progress Notes Filed: 07/03/2022 12:20 PM Note Text: Please see ordered labs: Scan on 07/03/2022 10:17 AM by External Provider: Miscellaneous Lab Scan on 07/03/2022 10:37 AM by External Provider: Miscellaneous Lab Alla Reyna LPN [facility] 07-03-2022 History of Present illness Narrative Please see ordered labs: Scan on 07/03/2022 10:17 AM by External Provider: Miscellaneous Lab Scan on 07/03/2022 10:37 AM by External Provider: Miscellaneous Lab Alla Reyna LPN documented in this encounter [facility] 05-09-2022 Miscellaneous Notes Labs faxed to [facility] per pt request. Notified via [employer]. Irene Pisano Ma documented in this encounter [facility] 05-08-2022 Note HNO ID: [id number] Author: Erich Hawkins APRN.FADI Service: ? Author Type: Nurse Practitioner Type: Progress Notes Filed: 05/08/2022 1:08 PM Note Text: Chief Complaint Patient presents with: Refill Request: Medication refill for klonipin HPI Danni Long is a 51 year old female who presents here today for Above Complaints.. Danni is an established patient of Dr. Blakely, DO and myself. Concerns today.. Anxiety -- Zoloft 125 mg daily and Klonopin 0.5 mg prn. Taking Klonopin mostly every day. Scheduled to see psychiatrist this month at [place] where she works. Old psychiatrist left and knows she needs to find new one. Has tried numerous SSRI/SNRI therapies. Feels stable on current regimen but feels like mood can improve. Wants to wait to discuss with psychiatrist about different options for daily medication use. Has buspar at home prescribed by outside [facility] provider that she may trial. HTN -- losartan and spironolactone daily. She states compliant with current blood pressure medication(s) She does check BP at home. Average home readings: 150s/100s. She denies chest pain, shortness of breath, palpitations, dizziness, leg edema, headaches, or vision changes. Last 14 Encounter BP Readings: Date: BP: 05/08/2022 138/78 10/25/2021 138/64 09/18/2021 142/90 01/23/2021 136/88 01/01/2021 142/86 01/02/2020 128/72 12/07/2019 130/80 09/21/2019 126/84 06/01/2019 164/100 03/01/2019 134/86 12/09/2018 136/90 11/19/2018 130/82 10/12/2018 132/88 08/10/2018 122/76 Hypoparathyroidism -- Follows with endocrine for this. Has been stable without concerns. Medical Biller said she does not need to come back unless anything changes. Referred here after severe [facility] hospital admission this summer. Past medical history, appointments, medications, allergies reviewed. Previous Medical History PAST MEDICAL HISTORY Diagnosis Date Anemia likely due to iron deficiency Anxiety Dermatitis, seborrheic HTN (hypertension) 11/23/2017 Hypoparathyroidism (HCC) Nasal polyps Dr. Sheth ENT, CT sinuses 11/20/12 Panic attacks Vitamin D deficiency Previous Surgical History PAST SURGICAL HISTORY Procedure Laterality Date ADENOIDECTOMY PRIMARY AGE 13/> OFFICE ENDOMETRIAL ABLATION 02/2017 Ela endometrial ablation TOOTH EXTRACTION Family History FAMILY HISTORY Problem Relation Age of Onset Diabetes Mother Hypertension Mother Lipids Mother Diabetes Brother Asthma Brother Diabetes Brother Patient Allergies ALLERGIES Allergen Reactions Latex Hives Penicillins Shortness of Breath Prednisone GI Upset, Other: See Comments [place] jittery Wellbutrin [Bupropi* Other: See Comments sweating Current Medications Current Outpatient Medications on File Prior to Visit Medication Sig losartan (COZAAR) 100 mg tablet Take 1 tablet by mouth once daily. clonazePAM (KLONOPIN) 0.5 mg tablet Take 1 tablet by mouth once daily as needed for up to 30 days. calcium carbonate/vitamin D3 (CALCIUM 500 + D ORAL) Take 2 Each by mouth once daily. POTASSIUM CHLORIDE ORAL Take 10 mEq by mouth once daily. amLODIPine (NORVASC) 10 mg tablet Take 0.5 tablets by mouth once daily. cyclobenzaprine (FLEXERIL) 10 mg tablet Take 1 tablet by mouth three times daily as needed for Muscle Spasm. calcitriol (ROCALTROL) 0.5 mcg capsule Take 1 capsule by mouth once daily. (Patient not taking: Reported on 09/18/2021 ) sertraline (ZOLOFT) 25 mg tablet Take 2 tablets by mouth once daily. Total of 150 mg daily sertraline (ZOLOFT) 100 mg tablet Take 1 tablet by mouth once daily. Total dose of 150mg daily calcium carbonate 600 mg-cholecalciferol 200 units (CALCIUM 600 + D,3,) 600 mg(1,500mg) -200 unit tab Take 1 tablet by mouth twice daily. (Patient not taking: Reported on 09/18/2021 ) mirtazapine (REMERON) 15 mg tablet Take 30 mg by mouth daily at bedtime. Per Psych- Keyur Dubon, DROP BOARD WORKER ketoconazole (NIZORAL) 2 % cream Apply 1 application to affected area daily before breakfast. hydrocortisone 2.5 % cream Apply 1 application to affected area daily at bedtime. Location: facial, avoid eyes/lips No current facility-administered medications on file prior to visit. Social History Social History Tobacco Use Smoking status: Former Packs/day: 0.50 Years: 12.00 Pack years: 6.00 Types: Cigarettes Quit date: 05/04/2002 Years since quittin.0 Smokeless tobacco: Never Substance Use Topics Alcohol use: No Drug use: No REVIEW OF SYSTEMS: as above Reviewed relevant PMHx, PSHx, Social Hx, current medications and allergies. Review of Symptoms REVIEW OF SYSTEMS See HPI. EXAM: BP 138/78 (BP Site: Left Arm, BP Position: Sitting, BP Cuff Size: Large Adult) Pulse 60 Resp 16 Wt 125.3 kg (276 lb 3.2 oz) LMP 07/09/2017 BMI 45.26 kg/m? General Appearance: Well appearing, alert, in no acute distress, well-hydrated, well nourished.. Skin: (more content not included)... [facility] 05-08-2022 History of Present illness Narrative Chief Complaint Patient presents with: Refill Request: Medication refill for klonipin HPI Danni Long is a 51 year old female who presents here today for Above Complaints.. Danni is an established patient of Dr. Blakely, DO and myself. Concerns today.. Anxiety -- Zoloft 125 mg daily and Klonopin 0.5 mg prn. Taking Klonopin mostly every day. Scheduled to see psychiatrist this month at [place] where she works. Old psychiatrist left and knows she needs to find new one. Has tried numerous SSRI/SNRI therapies. Feels stable on current regimen but feels like mood can improve. Wants to wait to discuss with psychiatrist about different options for daily medication use. Has buspar at home prescribed by outside [facility] provider that she may trial. HTN -- losartan and spironolactone daily. She states compliant with current blood pressure medication(s) She does check BP at home. Average home readings: 150s/100s. She denies chest pain, shortness of breath, palpitations, dizziness, leg edema, headaches, or vision changes. Last 14 Encounter BP Readings: Date: BP: 05/08/2022 138/78 10/25/2021 138/64 09/18/2021 142/90 01/23/2021 136/88 01/01/2021 142/86 01/02/2020 128/72 12/07/2019 130/80 09/21/2019 126/84 06/01/2019 164/100 03/01/2019 134/86 12/09/2018 136/90 11/19/2018 130/82 10/12/2018 132/88 08/10/2018 122/76 Hypoparathyroidism -- Follows with endocrine for this. Has been stable without concerns. Medical Biller said she does not need to come back unless anything changes. Referred here after severe [facility] hospital admission this summer. Past medical history, appointments, medications, allergies reviewed. Previous Medical History PAST MEDICAL HISTORY Diagnosis Date Anemia likely due to iron deficiency Anxiety Dermatitis, seborrheic HTN (hypertension) 11/23/2017 Hypoparathyroidism (HCC) Nasal polyps Dr. Sheth ENT, CT sinuses 11/20/12 Panic attacks Vitamin D deficiency Previous Surgical History PAST SURGICAL HISTORY Procedure Laterality Date ADENOIDECTOMY PRIMARY AGE 13/> OFFICE ENDOMETRIAL ABLATION 02/2017 Ela endometrial ablation TOOTH EXTRACTION Family History FAMILY HISTORY Problem Relation Age of Onset Diabetes Mother Hypertension Mother Lipids Mother Diabetes Brother Asthma Brother Diabetes Brother Patient Allergies ALLERGIES Allergen Reactions Latex Hives Penicillins Shortness of Breath Prednisone GI Upset, Other: See Comments [place] jittery Wellbutrin [Bupropi* Other: See Comments sweating Current Medications Current Outpatient Medications on File Prior to Visit Medication Sig losartan (COZAAR) 100 mg tablet Take 1 tablet by mouth once daily. clonazePAM (KLONOPIN) 0.5 mg tablet Take 1 tablet by mouth once daily as needed for up to 30 days. calcium carbonate/vitamin D3 (CALCIUM 500 + D ORAL) Take 2 Each by mouth once daily. POTASSIUM CHLORIDE ORAL Take 10 mEq by mouth once daily. amLODIPine (NORVASC) 10 mg tablet Take 0.5 tablets by mouth once daily. cyclobenzaprine (FLEXERIL) 10 mg tablet Take 1 tablet by mouth three times daily as needed for Muscle Spasm. calcitriol (ROCALTROL) 0.5 mcg capsule Take 1 capsule by mouth once daily. (Patient not taking: Reported on 09/18/2021 ) sertraline (ZOLOFT) 25 mg tablet Take 2 tablets by mouth once daily. Total of 150 mg daily sertraline (ZOLOFT) 100 mg tablet Take 1 tablet by mouth once daily. Total dose of 150mg daily calcium carbonate 600 mg-cholecalciferol 200 units (CALCIUM 600 + D,3,) 600 mg(1,500mg) -200 unit tab Take 1 tablet by mouth twice daily. (Patient not taking: Reported on 09/18/2021 ) mirtazapine (REMERON) 15 mg tablet Take 30 mg by mouth daily at bedtime. Per Psych- Keyur Dubon, FADI ketoconazole (NIZORAL) 2 % cream Apply 1 application to affected area daily before breakfast. hydrocortisone 2.5 % cream Apply 1 application to affected area daily at bedtime. Location: facial, avoid eyes/lips No current facility-administered medications on file prior to visit. Social History Social History Tobacco Use Smoking status: Former Packs/day: 0.50 Years: 12.00 Pack years: 6.00 Types: Cigarettes Quit date: 05/04/2002 Years since quittin.0 Smokeless tobacco: Never Substance Use Topics Alcohol use: No Drug use: No REVIEW OF SYSTEMS: as above Reviewed relevant PMHx, PSHx, Social Hx, current medications and allergies. Review of Symptoms REVIEW OF SYSTEMS See HPI. EXAM: BP 138/78 (BP Site: Left Arm, BP Position: Sitting, BP Cuff Size: Large Adult) Pulse 60 Resp 16 Wt 125.3 kg (276 lb 3.2 oz) LMP 07/09/2017 BMI 45.26 kg/m General Appearance: Well appearing, alert, in no acute distress, well-hydrated, well nourished.. Skin: Skin color, texture, turgor normal, no suspicious rashes or lesions. Head: Normocephalic, no masses, lesions, tenderness or abnormalities. Lungs: Lungs clear to auscultation. No wheezing, rhonchi, rales.. Heart: RRR without murmur, gallop, or rubs. No ectopy. Abdomen: Normal abdominal exam, Abdomen soft, non-tender. Bowel sounds normal. No masses, organomegaly. Neurologic: Gait normal. Reflexes normal and symmetric. Sensation grossly intact.. Health Maintenance List HEPATITIS B(1 of 3 - 3-dose series) Never done HEPATITIS C SCREENING Never done HIV SCREENING Never done BP CONTROLLED (<130/80) Never done COLORECTAL CANCER SCREENING due on 10/02/2020 COVID-19 VACCINE(3 - Booster for Moderna series) due on 04/12/2021 SHINGRIX VACCINE(1 of 2) Never done PAP TESTING due on 12/10/2021 HPV TESTING due on 12/10/2021 INFLUENZA(1) due on 01/02/2022 MAMMOGRAM due on 02/06/2022 ANNUAL PCP TEAM CHRONIC DISEASE VISIT due on 10/25/2022 DIABETES SCREEN due on 01/01/2023 DTAP,TDAP,TD(2 - Td or Tdap) due on 01/12/2023 LIPID SCREEN due on 10/13/2023 ASSESSMENT/PLAN: 1. Situational anxiety - ICD9: 300.09, ICD10: F41.8 (primary diagnosis) Stable. Needing refill. Continue with upcoming psychiatry appointment about daily SSRI regimen. Trial buspar as prescribed. - CLONAZEPAM 0.5 MG TABLET PDMP website checked and validated. All prescriptions have been APPROPRIATELY filled. No suspicious activity was identified. 05/08/2022 by Erich Hawkins APRN.FADI 2. Hypertension, essential - ICD9: 401.9, ICD10: I10 - good control Bring in home BP cuff to next visit to compare readings as she is getting higher readings at home but BP is always stable in office. - Continue current medication(s) - Encouraged dietary sodium restriction/DASH diet - Recommended regular aerobic exercise. - Recommend home blood pressure monitoring, to bring results in on next visit - Goal of BP <130/80 - Recommend home or pharmacy blood pressure monitoring - Recommended no refined sugar, low refined starch, healthy oil intake (olive oil), healthy protein (fish) along the lines of the Mediterranean diet. - COMP METABOLIC PANEL - CBC + DIFF - HGB A1C 3. Panic attacks - ICD9: 300.01, ICD10: F41.0 See above. - CLONAZEPAM 0.5 MG TABLET 4. Mixed hyperlipidemia - ICD9: 272.2, ICD10: E78.2 - to be determined upon return of lab results - Continue current medication. - Check fasting lipid panel and ALT. - Encouraged following a low carbohydrate, healthy oil intake diet. - Continue current therapy. - LIPID PANEL BASIC 5. Hypoparathyroidism, unspecified hypoparathyroidism type (HCC) - ICD9: 252.1, ICD10: E20.9 - TSH BLD - T3 BLD - T4 FREE/FREE THYROX - PTH INTACT BLD RTO in 6 months, sooner if needed. Prescription instructions reviewed with patient as applicable. Potential red flag symptoms discussed with the patient. Reviewed appropriate action plan to take if red flag symptoms occur. Patient agreeable to treatment plan. Erich Hawkins APRN.DROP BOARD WORKER [address] [place] [address] documented in this encounter [facility] 05-07-2022 Miscellaneous Notes Called pt gave information provided. She voices understanding. Appt was made. Needs appointment to refill Klonopin. Has not been seen in > 6 months. Please assist in scheduling. Thank you, Erich Hawkins APRN.CNP PDMP website checked and validated. All prescriptions have been APPROPRIATELY filled. No suspicious activity was identified. 05/07/2022 by Erich Hawkins APRN.CNP The following approved medication requests have been transmitted electronically. Requested Prescriptions Signed Prescriptions Disp Refills losartan (COZAAR) 100 mg tablet 90 tablet 0 Sig: Take 1 tablet by mouth once daily. Authorizing Provider: ERICH HAWKINS Refused Prescriptions Disp Refills clonazePAM (KLONOPIN) 0.5 mg tablet 30 tablet 0 Sig: Take 1 tablet by mouth once daily as needed for up to 30 days. Refused By: ERICH HAWKINS Reason for Refusal: Patient needs appointment Erich Hawkins APRN.FADI Patient has been identified by name and date of : YesPatient phones for refill(s): Requested Prescriptions Pending Prescriptions Disp Refills losartan (COZAAR) 100 mg tablet 90 tablet 0 Sig: Take 1 tablet by mouth once daily. clonazePAM (KLONOPIN) 0.5 mg tablet 30 tablet 0 Sig: Take 1 tablet by mouth once daily as needed for up to 30 days. Date of last office visit in primary care: 10/25/21 Last 2 Encounter Wt Readings: Date: Wt: 10/25/2021 122.3 kg (269 lb 9.6 oz) 09/18/2021 123 kg (271 lb 1.3 oz) Previous labs/tests for medication: Not applicable Please advise. Thank you. Anu Vanegas LPN documented in this encounter [facility] 04-10-2022 Miscellaneous Notes PDMP website checked and validated. All prescriptions have been APPROPRIATELY filled. No suspicious activity was identified. 04/10/2022 by Erich Hawkins APRN.CNP The following approved medication requests have been transmitted electronically. Requested Prescriptions Signed Prescriptions Disp Refills clonazePAM (KLONOPIN) 0.5 mg tablet 30 tablet 0 Sig: Take 1 tablet by mouth once daily as needed for up to 30 days. Authorizing Provider: ERICH HAWKINS APRN.CNP Patient is calling in regards to not getting this medication and she is requesting a same day refill as she is out of medication now. Patient phones requesting refills as follows: Requested Prescriptions Pending Prescriptions Disp Refills clonazePAM (KLONOPIN) 0.5 mg tablet 30 tablet 0 Sig: Take 1 tablet by mouth once daily as needed for up to 30 days. DANIEL-10/25/21 Labs-01/24/22 NOV-none med filled 03/05/22 Please review and advise. Keira Treadwell LPN documented in this encounter [facility] 03-26-2022 Note Patient Outreach (IN [facility]) DANNI LONG ([id number]) 1970 F Date Time Provider Department 03/26/22 BRENDON BLAKELY During your visit today, we recorded the following information about you: Allergies As of Date: 03/26/2022 Noted Allergy Reaction LATEX 08/17/2013 4 - Hives PENICILLINS 12/28/2012 12 - Shortness of Breath PREDNISONE 03/19/2016 8 - GI Upset 14 - Other: See Comments Comments: [place] jittery WELLBUTRIN (BUPROPION HCL) 12/03/2016 14 - Other: See Comments Comments: sweating Date Reviewed: 10/25/2021 Reviewed by: Erich Hakwins APRN.DROP BOARD WORKER - Fully Assessed Visit Diagnosis:Encounter for screening mammogram for breast cancer [Z12.31] Order(s):[facility] SCREENING [[id number]] Order #: [id number] FUTURE Prescriptions as of 03/31/2022 - clonazePAM (KLONOPIN) 0.5 mg tablet Take 1 tablet by mouth once daily as needed for up to 30 days. - losartan (COZAAR) 100 mg tablet Take 1 tablet by mouth once daily. - calcium carbonate/vitamin D3 (CALCIUM 500 + D ORAL) Take 2 Each by mouth once daily. - POTASSIUM CHLORIDE ORAL Take 10 mEq by mouth once daily. - amLODIPine (NORVASC) 10 mg tablet Take 0.5 tablets by mouth once daily. - cyclobenzaprine (FLEXERIL) 10 mg tablet Take 1 tablet by mouth three times daily as needed for Muscle Spasm. - calcitriol (ROCALTROL) 0.5 mcg capsule Take 1 capsule by mouth once daily. - sertraline (ZOLOFT) 25 mg tablet Take 2 tablets by mouth once daily. Total of 150 mg daily - sertraline (ZOLOFT) 100 mg tablet Take 1 tablet by mouth once daily. Total dose of 150mg daily - calcium carbonate 600 mg-cholecalciferol 200 units (CALCIUM 600 + D,3,) 600 mg(1,500mg) -200 unit tab Take 1 tablet by mouth twice daily. - mirtazapine (REMERON) 15 mg tablet Take 30 mg by mouth daily at bedtime. Per Psych- Keyur Dubon CNP - ketoconazole (NIZORAL) 2 % cream Apply 1 application to affected area daily before breakfast. - hydrocortisone 2.5 % cream Apply 1 application to affected area daily at bedtime. Location: facial, avoid eyes/lips Problem List As Of Date 03/26/2022 Noted Resolved HYPOPARATHYROIDISM [E20.9] 09/06/2007 Morbid obesity with BMI of 40.0-44.9, adult (HC*12/28/2012 11/23/2017 Smell disturbance [R43.9] 12/28/2012 Low back pain [M54.50] 12/28/2012 11/23/2017 Panic attacks [F41.0] 12/28/2012 Anxiety [F41.9] 12/28/2012 Degeneration of lumbar or lumbosacral intervert*01/26/2013 Seborrheic dermatitis [L21.9] 06/15/2013 Abnormal uterine bleeding [N93.9] 08/17/2013 11/23/2017 Urge incontinence [N39.41] 08/17/2013 11/23/2017 Hypercholesterolemia [E78.00] 10/17/2014 Neck pain [M54.2] 01/16/2016 Iron deficiency anemia due to chronic blood los*12/03/2016 11/23/2017 Menorrhagia with regular cycle [N92.0] 12/03/2016 11/23/2017 Dysthymia [F34.1] 12/03/2016 Leg pain, bilateral [M79.604, M79.605] 04/22/2017 11/23/2017 RUQ pain [R10.11] 10/23/2017 HTN (hypertension) [I10] 11/23/2017 Cervical (neck) region somatic dysfunction [M99*02/13/2021 Somatic dysfunction of spine, thoracic [M99.02] 02/13/2021 Acute bilateral thoracic back pain [M54.6] 02/13/2021 Encounter Status:Closed by IQRA, PRODUSER on 03/31/22 [facility] 03-05-2022 Miscellaneous Notes The following approved medication requests have been transmitted electronically. Requested Prescriptions Refused Prescriptions Disp Refills clonazePAM (KLONOPIN) 0.5 mg tablet 30 tablet 0 Sig: Take 1 tablet by mouth once daily as needed for up to 30 days. Refused By: ERICH HAWKINS Reason for Refusal: Request already responded to by other means (for example, phone, fax) Erich Hawkins APRN.CNP Patient phones requesting refills as follows: Requested Prescriptions Pending Prescriptions Disp Refills clonazePAM (KLONOPIN) 0.5 mg tablet 30 tablet 0 Sig: Take 1 tablet by mouth once daily as needed for up to 30 days. DANIEL-10/25/21 Labs-01/24/22 NOV-none med filled 01/30/22 Please review and advise. Keira Treadwell LPN documented in this encounter [facility] 03-05-2022 Miscellaneous Notes [facility] website checked and validated. All prescriptions have been APPROPRIATELY filled. No suspicious activity was identified. 03/05/2022 by Erich Hawkins APRN.CNP The following approved medication requests have been transmitted electronically. Requested Prescriptions Signed Prescriptions Disp Refills clonazePAM (KLONOPIN) 0.5 mg tablet 30 tablet 0 Sig: Take 1 tablet by mouth once daily as needed for up to 30 days. Authorizing Provider: ERICH HAWKINS APRN.CNP Patient has been identified by name and date of : Yes Patient phones for refill(s): Requested Prescriptions Pending Prescriptions Disp Refills clonazePAM (KLONOPIN) 0.5 mg tablet 30 tablet 0 Sig: Take 1 tablet by mouth once daily as needed for up to 30 days. Date of last office visit in primary care: 10/25/21 Please advise. Thank you. Christie Petty LPN documented in this encounter [facility] 02-03-2022 Miscellaneous Notes DANIEL--10/25/21 NOV--NOT SCHEDULED LAST REFILL--11/06/21 90 WITH 0 REFILLS LAST LABS--01/24/22 documented in this encounter [facility] 01-30-2022 Miscellaneous Notes PDMP website checked and validated. All prescriptions have been APPROPRIATELY filled. No suspicious activity was identified. 01/30/2022 by Erich Hawkins APRN.CNP The following approved medication requests have been transmitted electronically. Requested Prescriptions Signed Prescriptions Disp Refills clonazePAM (KLONOPIN) 0.5 mg tablet 30 tablet 0 Sig: Take 1 tablet by mouth once daily as needed for up to 30 days. Authorizing Provider: ERICH HAWKNIS APRN.CNP Patient phones requesting refills as follows: Requested Prescriptions Pending Prescriptions Disp Refills clonazePAM (KLONOPIN) 0.5 mg tablet 30 tablet 0 Sig: Take 1 tablet by mouth once daily as needed for up to 30 days. DANIEL-10/25/21 Labs-01/24/22 NOV-none med filled 12/28/21 Please review and advise. eKira Treadwell LPN documented in this encounter [facility] 12-28-2021 Miscellaneous Notes The following approved medication requests have been transmitted electronically. Requested Prescriptions Signed Prescriptions Disp Refills clonazePAM (KLONOPIN) 0.5 mg tablet 30 tablet 0 Sig: Take 1 tablet by mouth once daily as needed for up to 30 days. Authorizing Provider: VIKTORIYA CHOE APRN.CNP [facility] website checked and validated. All prescriptions have been APPROPRIATELY filled. No suspicious activity was identified. 12/28/2021 by Viktoriya Choe CNP. Patient phones requesting refills as follows: Requested Prescriptions Pending Prescriptions Disp Refills clonazePAM (KLONOPIN) 0.5 mg tablet 30 tablet 0 Sig: Take 1 tablet by mouth once daily as needed for up to 30 days. DANIEL-10/25/21 Labs-11/28/21 NOV-none med filled 11/25/21 Please review and advise. Keira Treadwell LPN documented in this encounter [facility] 11-25-2021 Miscellaneous Notes The following approved medication requests have been transmitted electronically. Signed Prescriptions Disp Refills clonazePAM (KLONOPIN) 0.5 mg tablet 30 tablet 0 Sig: Take 1 tablet by mouth once daily as needed for up to 30 days. WILLIAM Class: C-IV SUSY: No Authorizing Provider: VIKTORIYA CHOE APRN.DROP BOARD WORKER PDMP website checked and validated. All prescriptions have been APPROPRIATELY filled. No suspicious activity was identified. 11/25/2021 by Viktoriya Choe CNP. Patient phones requesting refills as follows: Pending Prescriptions Disp Refills CLONAZEPAM 0.5 MG TABLET 30 tablet 0 Sig: Take 1 tablet by mouth once daily as needed for up to 30 days. WILLIAM Class: C-IV SUSY: No DANIEL-10/25/21 Labs-11/05/21 NOV-none med filled 10/25/21 ends 11/24/21 Please review and advise. Keira Treadwell LPN documented in this encounter [facility] 11-22-2021 Miscellaneous Notes Patient calls and notified of provider response and new orders placed. Patient voiced understanding. Viola Santos RN TC patient, left message for patient to call back and speak with triage nurse. No. I am sorry, that happens a lot. Continue on current dosage of Lipitor and redraw lipid panel when initially suppose to. Disregard the increased dosage. New order placed. Thank you, Erich Hawkins APRN.CNP Spoke with pt she states she went to lab to get something else drawn and they martin everything. She states she was not to have lipids drawn until 3 months after being on it. She was only on the medication for 2 weeks when this was drawn . Do you still want increase? Please call and let patient know that I received her blood work results from Thursday done at [facility]. Kidney function continues to improve and is almost back within normal range. Lipid panel is elevated with an LDL of 161 and total cholesterol of 252. Please ask patient if she is taking the 10 mg Lipitor routinely. If so, I recommend increasing this dosage to 20 mg daily and repeat lipid panel in 3 months. Rx sent to [facility] if pt agreeable. May need to fax blood work to [facility] -- ask pt. The following approved medication requests have been transmitted electronically. Signed Prescriptions Disp Refills atorvastatin (LIPITOR) 20 mg tablet 90 tablet 0 Sig: Take 1 tablet by mouth once daily. For cholesterol. Authorizing Provider: ERICH HAWKINS APRN.CNP documented in this encounter [facility] 11-06-2021 Miscellaneous Notes Refilled in prior encounter. Erich Hawkins APRN.CNP The following approved medication requests have been transmitted electronically. Refused Prescriptions Disp Refills losartan (COZAAR) 100 mg tablet 90 tablet 0 Sig: Take 1 tablet by mouth once daily. SUSY: No Refused By: ERICH HAWKINS Reason for Refusal: Request already responded to by other means (for example, phone, fax) Erich Zurawick, [employer] STUDIES DIRECTOR.DROP BOARD WORKER daniel-- 10/25/21 Next-- Nothing scheduled Last refill-- 07/29/21 90 With 0 refills Last labs--10/25/21 documented in this encounter [facility] 11-06-2021 Miscellaneous Notes Pt called in and reports she is out of this medication. Pt asking if she can get it sent today. Patient phones requesting refills as follows: Pending Prescriptions Disp Refills LOSARTAN 100 MG TABLET 90 tablet 0 Sig: Take 1 tablet by mouth once daily. SUSY: No DANIEL-10/25/21 Labs-10/14/21 nov-none Please review and advise. Keira Treadwell LPN documented in this encounter [facility] 10-25-2021 Nurse Note All labs were faxed to [facility] as requested. documented in this encounter [facility] 10-25-2021 Instructions Erich Hawkins APRN.FADI - 10/25/2021 2:40 PM EDT Start taking amlodpine 1/2 tablet x 2 weeks -- record BP daily and let me know via mychart how BP readings are and how edema is after 2 weeks. Get blood work done in 1 month to recheck thyroid and kidney function levels. Recheck lipid panel in 3 months to recheck cholesterol. documented in this encounter [facility] 10-25-2021 History of Present illness Narrative Chief Complaint Patient presents with: Results HPI Danni Long is a 51 year old female who presents here today for Above Complaints. Danni is an established patient of Dr. Dany DO and myself. Telephone encounter on 10/02 giving results done by [facility] ordered from Hospital Follow-up appointment. Blood work done on 09/23: BUN 23 Cr 1.65 GFR 35 Ca 7.4 --- following with pet feeder Dr. Benítez for this d/t autoimmunne hypoparathyroidism. Chol 266 Triglycerides 296 LDL 167 HDL 40 TSH 4.32 -- endocrine also follows this. Improved kidney function from 09/19 as in chart under external labs. Today... Blood work results faxed over today from [facility] include: BUN 18 Cr 1.11 GFR 55 Ca 8.5 COVID + after recent ER visit which may be contributing to recent delay in healing of AYLA d/t body fighting numerous conditions. Discussed TSH levels and cholesterol levels from prior. Pt reports TSH level fluctuates often d/t parathyroid function. Recruiting Administrator is also following TSH levels. Does not have follow-up with endocrine for 6-9 months. Willing to start low dose statin therapy for cholesterol. Anxiety: Klonipin 0.5 mg prn Situational anxiety. Takes just about daily. About 5-6x/week. Feels stable on this dosage. Edema: Was on HCTZ by endocrinology to increase Ca level. Was taken off of this at recent hospital admission d/t elevated Ca. Was placed on amlodipine during admission d/t elevated BP readings. Since hospital visit has had mild pitting BLE edema. Gets some swelling/edema at baseline and after a long day on feet but has significantly worsened after starting amlodipine. Not bothersome but noticeable per pt. Past medical history, appointments, medications, allergies reviewed. Previous Medical History PAST MEDICAL HISTORY Diagnosis Date Anemia likely due to iron deficiency Anxiety Dermatitis, seborrheic HTN (hypertension) 11/23/2017 Hypoparathyroidism (HCC) Nasal polyps Dr. Sheth ENT, CT sinuses 11/20/12 Panic attacks Vitamin D deficiency Previous Surgical History PAST SURGICAL HISTORY Procedure Laterality Date ADENOIDECTOMY PRIMARY AGE 13/> OFFICE ENDOMETRIAL ABLATION 02/2017 Ela endometrial ablation TOOTH EXTRACTION Family History FAMILY HISTORY Problem Relation Age of Onset Diabetes Mother Hypertension Mother Lipids Mother Diabetes Brother Asthma Brother Diabetes Brother Patient Allergies ALLERGIES Allergen Reactions Latex Hives Penicillins Shortness of Breath Prednisone GI Upset, Other: See Comments [place] jittery Wellbutrin [Bupropi* Other: See Comments sweating Current Medications Current Outpatient Medications on File Prior to Visit Medication Sig amLODIPine (NORVASC) 10 mg tablet Take 1 tablet by mouth once daily. clonazePAM (KLONOPIN) 0.5 mg tablet Take 1 tablet by mouth once daily as needed for up to 30 days. losartan (COZAAR) 100 mg tablet Take 1 tablet by mouth once daily. cyclobenzaprine (FLEXERIL) 10 mg tablet Take 1 tablet by mouth three times daily as needed for Muscle Spasm. calcitriol (ROCALTROL) 0.5 mcg capsule Take 1 capsule by mouth once daily. (Patient not taking: Reported on 09/18/2021 ) sertraline (ZOLOFT) 25 mg tablet Take 2 tablets by mouth once daily. Total of 150 mg daily sertraline (ZOLOFT) 100 mg tablet Take 1 tablet by mouth once daily. Total dose of 150mg daily calcium carbonate 600 mg-cholecalciferol 200 units (CALCIUM 600 + D,3,) 600 mg(1,500mg) -200 unit tab Take 1 tablet by mouth twice daily. (Patient not taking: Reported on 09/18/2021 ) mirtazapine (REMERON) 15 mg tablet Take 30 mg by mouth daily at bedtime. Per Psych- Keyur Dubon, DROP BOARD WORKER ketoconazole (NIZORAL) 2 % cream Apply 1 application to affected area daily before breakfast. hydrocortisone 2.5 % cream Apply 1 application to affected area daily at bedtime. Location: facial, avoid eyes/lips No current facility-administered medications on file prior to visit. Social History Social History Tobacco Use Smoking status: Former Smoker Packs/day: 0.50 Years: 12.00 Pack years: 6.00 Quit date: 05/04/2002 Years since quittin.4 Smokeless tobacco: Never Used Substance Use Topics Alcohol use: No Drug use: No REVIEW OF SYSTEMS: as above Reviewed relevant PMHx, PSHx, Social Hx, current medications and allergies. Review of Symptoms See HPI. All other systems are negative. EXAM: BP 138/64 (BP Site: Left Arm, BP Position: Sitting, BP Cuff Size: Large Adult) Pulse 72 Resp 16 Wt 122.3 kg (269 lb 9.6 oz) LMP 07/09/2017 BMI 44.18 kg/m General Appearance: Well appearing, alert, in no acute distress, well-hydrated, well nourished.. Skin: Skin color, texture, turgor normal, no suspicious rashes or lesions. Head: Normocephalic, no masses, lesions, tenderness or abnormalities. Neck: Supple, no adenopathy; thyroid symmetric, normal size, no bruits. Back:no pain to palpation of vertebrae, good flexion and extension, good range of motion, no muscle tenderness, reflexes are 2+ and symmetric, motor and sensory appear to be normal, negative SLR test, no evidence of scoliosis Lungs: Lungs clear to auscultation. No wheezing, rhonchi, rales.. Heart: RRR without murmur, gallop, or rubs. No ectopy. Abdomen: Normal abdominal exam, Abdomen soft, non-tender. Bowel sounds normal. No masses, organomegaly. Extremities: No deformities, edema, skin discoloration, clubbing or cyanosis. Good capillary refill. , Edema: 1+ BLE. Musculoskeletal: No joint swelling, deformity, or tenderness. Peripheral Pulses: Normal. Neurologic: Gait normal. Reflexes normal and symmetric. Sensation grossly intact.. Health Maintenance List HEPATITIS C SCREENING Never done HIV SCREENING Never done BP CONTROLLED (<130/80) Never done COLORECTAL CANCER SCREENING due on 10/02/2020 COVID-19 VACCINE(3 - Booster for Moderna series) due on 07/16/2021 SHINGRIX VACCINE(1 of 2) due on 10/20/2021 PAP TESTING due on 12/10/2021 HPV TESTING due on 12/10/2021 MAMMOGRAM due on 02/06/2022 ANNUAL PCP TEAM CHRONIC DISEASE VISIT due on 09/18/2022 DIABETES SCREEN due on 01/01/2023 DTAP,TDAP,TD(2 - Td or Tdap) due on 01/12/2023 LIPID SCREEN due on 10/13/2023 INFLUENZA Completed ASSESSMENT/PLAN: 1. AYLA (acute kidney injury) (HCC) - ICD9: 584.9, ICD10: N17.9 (primary diagnosis) Improving. Almost back to normal function. Repeat CMP in 3-4 weeks. Would like to see slightly more decrease in Cr and increase in GFR but almost completely back to WNL. - COMP METABOLIC PANEL 2. Situational anxiety - ICD9: 300.09, ICD10: F41.8 Stable. Well controlled. Continue current regimen. Refilled. - CLONAZEPAM 0.5 MG TABLET PDMP website checked and validated . All prescriptions have been APPROPRIATELY filled. No suspicious activity was identified. 10/25/2021 by Erich Hawkins APRN.DROP BOARD WORKER 3. Panic attacks - ICD9: 300.01, ICD10: F41.0 See above. - CLONAZEPAM 0.5 MG TABLET 4. Hypoparathyroidism, unspecified hypoparathyroidism type (HCC) - ICD9: 252.1, ICD10: E20.9 Continue to follow-up with endocrine. Recheck thyroid levels with repeat blood work in 3-4 weeks to monitor fluctuations. May need low dose synthroid. - TSH BLD - T3 BLD - T4 FREE/FREE THYROX 5. Thyroid disorder screening - ICD9: V77.0, ICD10: Z13.29 See above. - TSH BLD - T3 BLD - T4 FREE/FREE THYROX 6. Mixed hyperlipidemia - ICD9: 272.2, ICD10: E78.2 - poor control and - newly addressed - Begin treatment with atorvastatin (Lipitor) 10 mg - Encouraged following a low fat, low cholesterol diet. - Discussed the benefits of regular aerobic exercise and weight loss. - Check fasting lipid panel and ALT in 3 months. - Follow up in 12 weeks. - Encouraged following a low carbohydrate, healthy oil intake diet. - LIPID PANEL BASIC 7. Primary hypertension - ICD9: 401.9, ICD10: I10 - good control - Decrease amlodipine (Norvasc) to 5 mg daily -- take 0.5 tablets daily to improve edema symptoms. Continue to monitor BP daily at home and let me know in 2 weeks how edema is and BP readings daily x 2 weeks. If edema improved and BP still elevated -- may need to consider addition of metoprolol to regimen. - Recommended regular aerobic exercise. - Recommend home blood pressure monitoring, to bring results in on next visit - Goal of BP <130/80 8. Bilateral leg edema - ICD9: 782.3, ICD10: R60.0 Symptoms started when starting amlodipine. Decrease amlodipine (Norvasc) to 5 mg daily -- take 0.5 tablets daily to improve edema symptoms. Continue to monitor BP daily at home and let me know in 2 weeks how edema is and BP readings daily x 2 weeks. If edema improved and BP still elevated -- may need to consider addition of metoprolol to regimen. Faxed all lab results to [facility] to have completed. RTO as needed. Follow-up update in 2 weeks. Prescription instructions reviewed with patient as applicable. Potential red flag symptoms discussed with the patient. Reviewed appropriate action plan to take if red flag symptoms occur. Patient agreeable to treatment plan. I spent 55 minutes in the visit, with more than 50% of the total [id number] time of the visit in counseling / coordination of care. Erich Hawkins APRN.CNP [id number] [place] [address] documented in this encounter [facility] 10-09-2021 Miscellaneous Notes The following approved medication requests have been transmitted electronically. Signed Prescriptions Disp Refills amLODIPine (NORVASC) 10 mg tablet 90 tablet 1 Sig: Take 1 tablet by mouth once daily. SUSY: No Erich Hawkins APRN.CNP Please see pt message Abigail Mares Ma documented in this encounter [facility] 09-18-2021 History of Present illness Narrative Chief Complaint Patient presents with: Rx Refills HPI Danni Long is a 50 year old female who presents here today for Above Complaints.. Danni is an established patient of Dr. Dany DO. Danni is a new patient to me today. Concerns today.. Needs Klonopin refilled but overdue for 6 month visit d/t controlled substance use. Anxiety/panick attacks: Clonazepam 0.5mg once daily prn. Takes 1 tablet 6/7 days per week. Normally while at work when anxiety is the worst. Feels anxiety is well managed with this dosage. Had recent [facility] hospital admission from 09/12/21-09/14/21 d/t abnormal calcium levels. Was having HTN, diarrhea, CP, and confusion. Dx of autoimmune hypoparathyroidism. Prior to admission had low Ca level and pet feeder recently increased Ca supplement and calcitriol. Pt arrived to ER and found to be hypercalcemic (up to 14.5) and AYLA from blood work. Spent 2 night in hospital and discharged home on 09/14. Had follow-up appointment with [place] doctor post-hospital visit and is following closely with her pet feeder, Dr. Benítez, q2 days via virtual visits. They have currently taken her off all of her Ca and Vit D supplements and will slowly re-introduce them. Pt reports feeling good since discharge. She can tell by the way she feels when Ca is low or high. Is scheduled to have repeat blood work drawn tomorrow but unsure of what. Pt concern about some swelling, warmth, and redness around where IV site was. Denies fever/chills. Denies pain or tenderness. Denies redness resembling streaking up arm following the vein. Denies redness spreading since discharge. Made a compression stocking for arm. Past medical history, appointments, medications, allergies reviewed. Previous Medical History PAST MEDICAL HISTORY Diagnosis Date Anemia likely due to iron deficiency Anxiety Dermatitis, seborrheic HTN (hypertension) 11/23/2017 Hypoparathyroidism (HCC) Nasal polyps Dr. Sheth ENT, CT sinuses 11/20/12 Panic attacks Vitamin D deficiency Previous Surgical History PAST SURGICAL HISTORY Procedure Laterality Date ADENOIDECTOMY PRIMARY AGE 13/> OFFICE ENDOMETRIAL ABLATION 02/2017 Ela endometrial ablation TOOTH EXTRACTION Family History FAMILY HISTORY Problem Relation Age of Onset Diabetes Mother Hypertension Mother Lipids Mother Diabetes Brother Asthma Brother Diabetes Brother Patient Allergies ALLERGIES Allergen Reactions Latex Hives Penicillins Shortness of Breath Prednisone GI Upset, Other: See Comments [place] jittery Wellbutrin [Bupropi* Other: See Comments sweating Current Medications Current Outpatient Medications on File Prior to Visit Medication Sig clonazePAM (KLONOPIN) 0.5 mg tablet Take 1 tablet by mouth once daily as needed for up to 30 days. losartan (COZAAR) 100 mg tablet Take 1 tablet by mouth once daily. clonazePAM orally disintegrating (KLONOPIN WAFER) 0.125 mg disintegrating tablet Take 1 tablet by mouth four times daily as needed for up to 30 days. clonazePAM orally disintegrating (KLONOPIN WAFER) 0.25 mg disintegrating tablet Take 1 tablet by mouth twice daily as needed for up to 30 days. cyclobenzaprine (FLEXERIL) 10 mg tablet Take 1 tablet by mouth three times daily as needed for Muscle Spasm. shark liver oil-cocoa butter (HEMORRHOIDAL) 0.25-3 % suppository 1 Suppository by RECTAL route as needed. (Patient not taking: Reported on 01/23/2021 ) calcitriol (ROCALTROL) 0.5 mcg capsule Take 1 capsule by mouth once daily. hydroCHLOROthiazide (HYDRODIURIL, ESIDRIX) 25 mg tablet Take 25 mg by mouth once daily. sertraline (ZOLOFT) 25 mg tablet Take 2 tablets by mouth once daily. Total of 150 mg daily sertraline (ZOLOFT) 100 mg tablet Take 1 tablet by mouth once daily. Total dose of 150mg daily calcium carbonate 600 mg-cholecalciferol 200 units (CALCIUM 600 + D,3,) 600 mg(1,500mg) -200 unit tab Take 1 tablet by mouth twice daily. mirtazapine (REMERON) 15 mg tablet Take 1 tablet by mouth daily at bedtime. Per Psych- Keyur Dubon, FADI ketoconazole (NIZORAL) 2 % cream Apply 1 application to affected area daily before breakfast. hydrocortisone 2.5 % cream Apply 1 application to affected area daily at bedtime. Location: facial, avoid eyes/lips No current facility-administered medications on file prior to visit. Social History Social History Tobacco Use Smoking status: Former Smoker Packs/day: 0.50 Years: 12.00 Pack years: 6.00 Quit date: 05/04/2002 Years since quittin.3 Smokeless tobacco: Never Used Substance Use Topics Alcohol use: No Drug use: No REVIEW OF SYSTEMS: as above Reviewed relevant PMHx, PSHx, Social Hx, current medications and allergies. Review of Symptoms See HPI. All other systems are negative. EXAM: BP 142/90 (BP Site: Left Arm, BP Position: Sitting, BP Cuff Size: Large Adult) Pulse 64 Resp 18 Wt 123 kg (271 lb 1.3 oz) LMP 07/09/2017 BMI 44.42 kg/m General Appearance: Well appearing, alert, in no acute distress, well-hydrated, well nourished.. Skin: Skin color, texture, turgor normal, no suspicious rashes or lesions, Head: Normocephalic, no masses, lesions, tenderness or abnormalities. Lungs: Lungs clear to auscultation. No wheezing, rhonchi, rales.. Heart: RRR without murmur, gallop, or rubs. No ectopy. Extremities: Normal except for slight redness and swelling around IV incision site from recent hospital visit. Slight tenderness. Musculoskeletal: No joint swelling, deformity, or tenderness. Peripheral Pulses: Normal. Neurologic: Gait normal. Reflexes normal and symmetric. Sensation grossly intact.. Health Maintenance List HEPATITIS C SCREENING Never done HIV SCREENING Never done BP CONTROLLED (<130/80) Never done COLORECTAL CANCER SCREENING due on 10/02/2020 COVID-19 VACCINE(3 - Booster for Moderna series) due on 07/16/2021 PAP TESTING due on 12/10/2021 HPV TESTING due on 12/10/2021 MAMMOGRAM due on 02/06/2022 ANNUAL PCP TEAM CHRONIC DISEASE VISIT due on 02/13/2022 DIABETES SCREEN due on 01/01/2023 DTAP,TDAP,TD(2 - Td or Tdap) due on 01/12/2023 LIPID SCREEN due on 10/13/2023 INFLUENZA Completed MENINGOCOCCAL CONJUGATE Aged Out ASSESSMENT/PLAN: 1. Situational anxiety - ICD9: 300.09, ICD10: F41.8 (primary diagnosis) Stable. Well controlled. Refilled. - CLONAZEPAM 0.5 MG TABLET 2. Panic attacks - ICD9: 300.01, ICD10: F41.0 Stable. Refilled. - CLONAZEPAM 0.5 MG TABLET 3. Swelling of upper arm - ICD9: 729.81, ICD10: M79.89 Likely phlebitis. Continue to monitor the area. If redness spreads beyond current borders, needs to follow-up in office. Use OTC ibuprofen for discomfort or tenderness. Elevate arm when able. Continue to wear compression to arm when able. Will rule out clot concern with US. - US DVT UPPER LT 4. Hypoparathyroidism, unspecified hypoparathyroidism type (HCC) - ICD9: 252.1, ICD10: E20.9 Will order and fax blood work to [facility] as follow-up from hospital values. Continue to closely follow with pet feeder and follow recommendations. - TSH BLD - CALCIUM TOTAL BLD - COMP METABOLIC PANEL - CBC 5. AYLA (acute kidney injury) (HCC) - ICD9: 584.9, ICD10: N17.9 Monitor kidney function following hospitalization. Improving per discharge. - COMP METABOLIC PANEL - CBC 6. Vitamin D deficiency - ICD9: 268.9, ICD10: E55.9 - VITAMIN D 25 HYDROXY RTO in 1 month, sooner if needed. Addressed hospital follow-up needs and arranged care. I spent 34 minutes in the visit, with more than 50% of the total [id number] time of the visit in counseling / coordination of care. Prescription instructions reviewed with patient as applicable. Potential red flag symptoms discussed with the patient. Reviewed appropriate action plan to take if red flag symptoms occur. Patient agreeable to treatment plan. Erich Hawkins APRN.[employer] [address] [place] [address] documented in this encounter [facility] 09-18-2021 Miscellaneous Notes Pt rescheduled with [place] today at 5pm OK per BRIANA Mares Ma documented in this encounter [facility] 08-14-2021 Miscellaneous Notes The following approved medication requests have been transmitted electronically. Signed Prescriptions Disp Refills clonazePAM (KLONOPIN) 0.5 mg tablet 30 tablet 0 Sig: Take 1 tablet by mouth once daily as needed for up to 30 days. WILLIAM Class: C-IV SUSY: No Authorizing Provider: VIKTORIYA CHOE APRN.CNP PDMP website checked and validated. All prescriptions have been APPROPRIATELY filled. No suspicious activity was identified. 08/14/2021 by Viktoriya Choe CNP. daniel-- 02/13/21 Last refill --07/08/21 for 30 with 0 refills Last labs-- 07/29/21 documented in this encounter [facility] documented as of this encounter (statuses as of 08/14/2021) [facility] History of Past illness Narrative* Problem Noted Date Resolved Date Leg pain, bilateral 04/22/2017 11/23/2017 Iron deficiency anemia due to chronic blood loss 12/03/2016 11/23/2017 Menorrhagia with regular cycle 12/03/2016 0 11/23/2017 Abnormal uterine bleeding 08/17/20132017 Urge incontinence 08/17/2013 11/23/2017 Morbid obesity with BMI of 40.0-44.9, adult 08/2 11/201211/23/2017 Low back pain 12/28/2012 11/23/2017 documented as of this encounter (statuses as of 08/19/2021) [facility] History of Past illness Narrative* Problem Noted Date Resolved Date Leg pain, bilateral 04/22/2017 11/23/2017 Iron deficiency anemia due to chronic blood loss 12/03/2016 11/23/2017 Menorrhagia with regular cycle 12/03/2016 0 11/23/2017 Abnormal uterine bleeding 08/17/20132017 Urge incontinence 08/17/2013 11/23/2017 Morbid obesity with BMI of 40.0-44.9, adult 08/2 11/201211/23/2017 Low back pain 12/28/2012 11/23/2017 documented as of this encounter (statuses as of 09/18/2021) [facility] History of Past illness Narrative* Problem Noted Date Resolved Date Leg pain, bilateral 04/22/2017 11/23/2017 Iron deficiency anemia due to chronic blood loss 12/03/2016 11/23/2017 Menorrhagia with regular cycle 12/03/2016 0 11/23/2017 Abnormal uterine bleeding 08/17/20132017 Urge incontinence 08/17/2013 11/23/2017 Morbid obesity with BMI of 40.0-44.9, adult 08/2 11/201211/23/2017 Low back pain 12/28/2012 11/23/2017 documented as of this encounter (statuses as of 09/18/2021) [facility] History of Past illness Narrative* Problem Noted Date Resolved Date Leg pain, bilateral 04/22/2017 11/23/2017 Iron deficiency anemia due to chronic blood loss 12/03/2016 11/23/2017 Menorrhagia with regular cycle 12/03/2016 0 11/23/2017 Abnormal uterine bleeding 08/17/20132017 Urge incontinence 08/17/2013 11/23/2017 Morbid obesity with BMI of 40.0-44.9, adult 08/2 11/201211/23/2017 Low back pain 12/28/2012 11/23/2017 documented as of this encounter (statuses as of 10/09/2021) [facility] History of Past illness Narrative* Problem Noted Date Resolved Date Leg pain, bilateral 04/22/2017 11/23/2017 Iron deficiency anemia due to chronic blood loss 12/03/2016 11/23/2017 Menorrhagia with regular cycle 12/03/2016 0 11/23/2017 Abnormal uterine bleeding 08/17/20132017 Urge incontinence 08/17/2013 11/23/2017 Morbid obesity with BMI of 40.0-44.9, adult 08/2 11/201211/23/2017 Low back pain 12/28/2012 11/23/2017 documented as of this encounter (statuses as of 10/25/2021) [facility] of Past illness Narrative* Problem Noted Date Resolved Date Leg pain, bilateral 04/22/2017 11/23/2017 Iron deficiency anemia due to chronic blood loss 12/03/2016 11/23/2017 Menorrhagia with regular cycle 12/03/2016 0 11/23/2017 Abnormal uterine bleeding 08/17/20132017 Urge incontinence 08/17/2013 11/23/2017 Morbid obesity with BMI of 40.0-44.9, adult 08/2 11/201211/23/2017 Low back pain 12/28/2012 11/23/2017 documented as of this encounter (statuses as of 11/06/2021) [facility] of Past illness Narrative* Problem Noted Date Resolved Date Leg pain, bilateral 04/22/2017 11/23/2017 Iron deficiency anemia due to chronic blood loss 12/03/2016 11/23/2017 Menorrhagia with regular cycle 12/03/2016 0 11/23/2017 Abnormal uterine bleeding 08/17/20132017 Urge incontinence 08/17/2013 11/23/2017 Morbid obesity with BMI of 40.0-44.9, adult 08/2 11/201211/23/2017 Low back pain 12/28/2012 11/23/2017 documented as of this encounter (statuses as of 11/06/2021) [facility] of Past illness Narrative* Problem Noted Date Resolved Date Leg pain, bilateral 04/22/2017 11/23/2017 Iron deficiency anemia due to chronic blood loss 12/03/2016 11/23/2017 Menorrhagia with regular cycle 12/03/2016 0 11/23/2017 Abnormal uterine bleeding 08/17/20132017 Urge incontinence 08/17/2013 11/23/2017 Morbid obesity with BMI of 40.0-44.9, adult 08/2 11/201211/23/2017 Low back pain 12/28/2012 11/23/2017 documented as of this encounter (statuses as of 11/22/2021) [facility] History of Past illness Narrative* Problem Noted Date Resolved Date Leg pain, bilateral 04/22/2017 11/23/2017 Iron deficiency anemia due to chronic blood loss 12/03/2016 11/23/2017 Menorrhagia with regular cycle 12/03/2016 0 11/23/2017 Abnormal uterine bleeding 08/17/20132017 Urge incontinence 08/17/2013 11/23/2017 Morbid obesity with BMI of 40.0-44.9, adult 08/2 11/201211/23/2017 Low back pain 12/28/2012 11/23/2017 documented as of this encounter (statuses as of 11/25/2021) [facility] History of Past illness Narrative* Problem Noted Date Resolved Date Leg pain, bilateral 04/22/2017 11/23/2017 Iron deficiency anemia due to chronic blood loss 12/03/2016 11/23/2017 Menorrhagia with regular cycle 12/03/2016 0 11/23/2017 Abnormal uterine bleeding 08/17/20132017 Urge incontinence 08/17/2013 11/23/2017 Morbid obesity with BMI of 40.0-44.9, adult 08/2 11/201211/23/2017 Low back pain 12/28/2012 11/23/2017 documented as of this encounter (statuses as of 12/29/2021) [facility] of Past illness Narrative* Problem Noted Date Resolved Date Leg pain, bilateral 04/22/2017 11/23/2017 Iron deficiency anemia due to chronic blood loss 12/03/2016 11/23/2017 Menorrhagia with regular cycle 12/03/2016 0 11/23/2017 Abnormal uterine bleeding 08/17/20132017 Urge incontinence 08/17/2013 11/23/2017 Morbid obesity with BMI of 40.0-44.9, adult 08/2 11/201211/23/2017 Low back pain 12/28/2012 11/23/2017 documented as of this encounter (statuses as of 01/30/2022) [facility] History of Past illness Narrative* Problem Noted Date Resolved Date Leg pain, bilateral 04/22/2017 11/23/2017 Iron deficiency anemia due to chronic blood loss 12/03/2016 11/23/2017 Menorrhagia with regular cycle 12/03/2016 0 11/23/2017 Abnormal uterine bleeding 08/17/20132017 Urge incontinence 08/17/2013 11/23/2017 Morbid obesity with BMI of 40.0-44.9, adult 08/2 11/201211/23/2017 Low back pain 12/28/2012 11/23/2017 documented as of this encounter (statuses as of 02/03/2022) [facility] History of Past illness Narrative* Problem Noted Date Resolved Date Leg pain, bilateral 04/22/2017 11/23/2017 Iron deficiency anemia due to chronic blood loss 12/03/2016 11/23/2017 Menorrhagia with regular cycle 12/03/2016 0 11/23/2017 Abnormal uterine bleeding 08/17/20132017 Urge incontinence 08/17/2013 11/23/2017 Morbid obesity with BMI of 40.0-44.9, adult 08/2 11/201211/23/2017 Low back pain 12/28/2012 11/23/2017 documented as of this encounter (statuses as of 03/05/2022) [facility] History of Past illness Narrative* Problem Noted Date Resolved Date Leg pain, bilateral 04/22/2017 11/23/2017 Iron deficiency anemia due to chronic blood loss 12/03/2016 11/23/2017 Menorrhagia with regular cycle 12/03/2016 0 11/23/2017 Abnormal uterine bleeding 08/17/20132017 Urge incontinence 08/17/2013 11/23/2017 Morbid obesity with BMI of 40.0-44.9, adult 08/2 11/201211/23/2017 Low back pain 12/28/2012 11/23/2017 documented as of this encounter (statuses as of 03/05/2022) [facility] History of Past illness Narrative* Problem Noted Date Resolved Date Leg pain, bilateral 04/22/2017 11/23/2017 Iron deficiency anemia due to chronic blood loss 12/03/2016 11/23/2017 Menorrhagia with regular cycle 12/03/2016 0 11/23/2017 Abnormal uterine bleeding 08/17/20132017 Urge incontinence 08/17/2013 11/23/2017 Morbid obesity with BMI of 40.0-44.9, adult 08/2 11/201211/23/2017 Low back pain 12/28/2012 11/23/2017 documented as of this encounter (statuses as of 03/31/2022) [facility] of Past illness Narrative* Problem Noted Date Resolved Date Leg pain, bilateral 04/22/2017 11/23/2017 Iron deficiency anemia due to chronic blood loss 12/03/2016 11/23/2017 Menorrhagia with regular cycle 12/03/2016 0 11/23/2017 Abnormal uterine bleeding 08/17/20132017 Urge incontinence 08/17/2013 11/23/2017 Morbid obesity with BMI of 40.0-44.9, adult 08/2 11/201211/23/2017 Low back pain 12/28/2012 11/23/2017 documented as of this encounter (statuses as of 04/10/2022) [facility] History of Past illness Narrative* Problem Noted Date Resolved Date Leg pain, bilateral 04/22/2017 11/23/2017 Iron deficiency anemia due to chronic blood loss 12/03/2016 11/23/2017 Menorrhagia with regular cycle 12/03/2016 0 11/23/2017 Abnormal uterine bleeding 08/17/20132017 Urge incontinence 08/17/2013 11/23/2017 Morbid obesity with BMI of 40.0-44.9, adult 08/2 11/201211/23/2017 Low back pain 12/28/2012 11/23/2017 documented as of this encounter (statuses as of 05/08/2022) [facility] History of Past illness Narrative* Problem Noted Date Resolved Date Leg pain, bilateral 04/22/2017 11/23/2017 Iron deficiency anemia due to chronic blood loss 12/03/2016 11/23/2017 Menorrhagia with regular cycle 12/03/2016 0 11/23/2017 Abnormal uterine bleeding 08/17/20132017 Urge incontinence 08/17/2013 11/23/2017 Morbid obesity with BMI of 40.0-44.9, adult 08/2 11/201211/23/2017 Low back pain 12/28/2012 11/23/2017 documented as of this encounter (statuses as of 05/09/2022) [facility] History of Past illness Narrative* Problem Noted Date Resolved Date Leg pain, bilateral 04/22/2017 11/23/2017 Iron deficiency anemia due to chronic blood loss 12/03/2016 11/23/2017 Menorrhagia with regular cycle 12/03/2016 0 11/23/2017 Abnormal uterine bleeding 08/17/20132017 Urge incontinence 08/17/2013 11/23/2017 Morbid obesity with BMI of 40.0-44.9, adult 08/2 11/201211/23/2017 Low back pain 12/28/2012 11/23/2017 documented as of this encounter (statuses as of 05/09/2022) [facility] History of Past illness Narrative* Problem Noted Date Resolved Date Leg pain, bilateral 04/22/2017 11/23/2017 Iron deficiency anemia due to chronic blood loss 12/03/2016 11/23/2017 Menorrhagia with regular cycle 12/03/2016 0 11/23/2017 Abnormal uterine bleeding 08/17/20132017 Urge incontinence 08/17/2013 11/23/2017 Morbid obesity with BMI of 40.0-44.9, adult 08/2 11/201211/23/2017 Low back pain 12/28/2012 11/23/2017 documented as of this encounter (statuses as of 07/03/2022) [facility] History of Past illness Narrative* Problem Noted Date Resolved Date Leg pain, bilateral 04/22/2017 11/23/2017 Iron deficiency anemia due to chronic blood loss 12/03/2016 11/23/2017 Menorrhagia with regular cycle 12/03/2016 0 11/23/2017 Abnormal uterine bleeding 08/17/20132017 Urge incontinence 08/17/2013 11/23/2017 Morbid obesity with BMI of 40.0-44.9, adult 08/2 11/201211/23/2017 Low back pain 12/28/2012 11/23/2017 documented as of this encounter (statuses as of 07/04/2022) [facility] History of Past illness Narrative* Problem Noted Date Resolved Date Leg pain, bilateral 04/22/2017 11/23/2017 Iron deficiency anemia due to chronic blood loss 12/03/2016 11/23/2017 Menorrhagia with regular cycle 12/03/2016 0 11/23/2017 Abnormal uterine bleeding 08/17/20132017 Urge incontinence 08/17/2013 11/23/2017 Morbid obesity with BMI of 40.0-44.9, adult 08/2 11/201211/23/2017 Low back pain 12/28/2012 11/23/2017 documented as of this encounter (statuses as of 09/09/2022) [facility] History of Past illness Narrative* Problem Noted Date Resolved Date Leg pain, bilateral 04/22/2017 11/23/2017 Iron deficiency anemia due to chronic blood loss 12/03/2016 11/23/2017 Menorrhagia with regular cycle 12/03/2016 0 11/23/2017 Abnormal uterine bleeding 08/17/20132017 Urge incontinence 08/17/2013 11/23/2017 Morbid obesity with BMI of 40.0-44.9, adult 08/2 11/201211/23/2017 Low back pain 12/28/2012 11/23/2017 documented as of this encounter (statuses as of 10/03/2022) [facility] History of Past illness Narrative* Problem Noted Date Resolved Date Leg pain, bilateral 04/22/2017 11/23/2017 Iron deficiency anemia due to chronic blood loss 12/03/2016 11/23/2017 Menorrhagia with regular cycle 12/03/2016 0 11/23/2017 Abnormal uterine bleeding 08/17/20132017 Urge incontinence 08/17/2013 11/23/2017 Morbid obesity with BMI of 40.0-44.9, adult 08/2 11/201211/23/2017 Low back pain 12/28/2012 11/23/2017 documented as of this encounter (statuses as of 10/28/2022) [facility] History of Past illness Narrative* Problem Noted Date Diagnosed Date Resolved Date Leg pain, bilateral 04/22/2017 11/24/19 18 Iron deficiency anemia due t o chronic blood loss 12/03/2016 11/23/2017 Menorrhagia with regular cycle 12/03/2016 11/23/2017 Abnormal uterine bleeding 08/17/2013 Urge incontinence 08/17/2013 11/23/2017 Morbid obesity with BMI of 40.0-44.9, adult 12/28/2012 11/23/2017 Low back pain 12/28/2012 11/23/2017 documented as of this encounter (statuses as of 12/10/2022) [facility] Narrative* Problem Noted Date Diagnosed Date Resolved Date Leg pain, bilateral 04/22/2017 11/24/19 18 Iron deficiency anemia due t o chronic blood loss 12/03/2016 11/23/2017 Menorrhagia with regular cycle 12/03/2016 11/23/2017 Abnormal uterine bleeding 08/17/2013 Urge incontinence 08/17/2013 11/23/2017 Morbid obesity with BMI of 40.0-44.9, adult 12/28/2012 11/23/2017 Low back pain 12/28/2012 11/23/2017 documented as of this encounter (statuses as of 01/16/2023) [facility] History of Past illness Narrative* Problem Noted Date Diagnosed Date Resolved Date Leg pain, bilateral 04/22/2017 11/24/19 18 Iron deficiency anemia due t o chronic blood loss 12/03/2016 11/23/2017 Menorrhagia with regular cycle 12/03/2016 11/23/2017 Abnormal uterine bleeding 08/17/2013 Urge incontinence 08/17/2013 11/23/2017 Morbid obesity with BMI of 40.0-44.9, adult 12/28/2012 11/23/2017 Low back pain 12/28/2012 11/23/2017 documented as of this encounter (statuses as of 02/03/2023) [facility]arrative* Problem Noted Date Diagnosed Date Resolved Date Leg pain, bilateral 04/22/2017 11/24/19 18 Iron deficiency anemia due t o chronic blood loss 12/03/2016 11/23/2017 Menorrhagia with regular cycle 12/03/2016 11/23/2017 Abnormal uterine bleeding 08/17/2013 Urge incontinence 08/17/2013 11/23/2017 Morbid obesity with BMI of 40.0-44.9, adult 12/28/2012 11/23/2017 Low back pain 12/28/2012 11/23/2017 documented as of this encounter (statuses as of 03/17/2023) [facility] Diagnosis Situational anxiety Other anxiety states Panic attacks Panic disorder without agoraphobia [facility] Diagnosis Situational anxiety- Primary Other anxiety states Panic attacks Panic disorder without agoraphobia Swelling of upper arm Hypoparathyroidism, unspecified hypoparathyroidism type (HCC) AYLA (acute kidney injury) (HCC) Acute kidney failure, unspecified Vitamin D deficiency Unspecified vitamin D deficiency [facility] Diagnosis AYLA (acute kidney injury) (HCC)- Primary Acute kidney failure, unspecified Situational anxiety Other anxiety states Panic attacks Panic disorder without agoraphobia Hypoparathyroidism, unspecified hypoparathyroidism type (HCC) Thyroid disorder screening Screening for thyroid disorder Mixed hyperlipidemia Primary hypertension Unspecified essential hypertension Bilateral leg edema Edema [facility] Diagnosis Hypertension, essential Unspecified essential hypertension [facility] Diagnosis Hypertension, essential Unspecified essential hypertension [facility] Diagnosis Mixed hyperlipidemia- Primary [facility] Diagnosis Situational anxiety Other anxiety states Panic attacks Panic disorder without agoraphobia [facility] Diagnosis Hypertension, essential Unspecified essential hypertension [facility] Diagnosis Situational anxiety Other anxiety states Panic attacks Panic disorder without agoraphobia documented in this encounter [facility]* Diagnosis Encounter for screening mammogram for breast cancer [facility] Diagnosis Situational anxiety Other anxiety states Panic attacks Panic disorder without agoraphobia [facility] Diagnosis Hypertension, essential Unspecified essential hypertension Situational anxiety Other anxiety states Panic attacks Panic disorder without agoraphobia [facility] Diagnosis Situational anxiety- Primary Other anxiety states Hypertension, essential Unspecified essential hypertension Panic attacks Panic disorder without agoraphobia Mixed hyperlipidemia Hypoparathyroidism, unspecified hypoparathyroidism type (HCC) [facility] Diagnosis AYLA (acute kidney injury) (HCC)- Primary Acute kidney failure, unspecified [facility] Diagnosis Encounter for gynecological examination without abnormal finding- Primary Routine gynecological examination Encounter for screening for malignant neoplasm of cervix Screening for malignant neoplasm of the cervix Special screening examination for human papillomavirus (HPV) Encounter for screening mammogram for malignant neoplasm of breast Other screening mammogram [facility] Diagnosis Routine physical examination- Primary Routine general medical examination at a health care facility Hypertension, essential Unspecified essential hypertension Myalgia Mylagia and myositis, unspecified Mixed hyperlipidemia Hypoparathyroidism, unspecified hypoparathyroidism type (HCC) Fatty liver Other chronic nonalcoholic liver disease Obesity, Class III, BMI >= 40 Morbid obesity Calculus of gallbladder without cholecystitis without obstruction Calculus of gallbladder without mention of cholecystitis or obstruction Scalp psoriasis Other psoriasis [facility] Diagnosis Scalp psoriasis- Primary Other psoriasis [facility] Diagnosis Hypertension, essential Unspecified essential hypertension [facility] Diagnosis Borderline abnormal thyroid function test- Primary Nonspecific abnormal results of thyroid function study Vitamin B12 deficiency Other B-complex deficiencies Hypertension, essential Unspecified essential hypertension Scalp psoriasis Other psoriasis Mixed hyperlipidemia Hypoparathyroidism, unspecified hypoparathyroidism type (HCC) Fatty liver Other chronic nonalcoholic liver disease Stage 3a chronic kidney disease (HCC) Situational anxiety Other anxiety states documented in this encounter [facility] for referral (narrative)* Diagnostic Procedure Only (Routine) - Pending Review Specialty Diagnoses / Procedures Referred By Anni t Referred To Contact [facility] IMAGING Diagnoses Swelling of upper arm Procedures US DVT UPPER LT DUP-SCAN XTR VEINS UNILATERAL/LIMITED STUDY Erich Hawkins APRN.CNP [address] [place] [address] [facility] Referral ID Status Reason Start Date Expiration Date Visits Requested Visits Authorized [id number] Pending Review Auto-Generat ed Referral 09/18/2021 10/18/2022 1 1 [facility] for referral (narrative)* Diagnostic Procedure Only (Routine) - Pending Review Specialty Diagnoses / Procedures Referred By Anni t Referred To Contact [facility] Diagnoses Encounter for screening mammogram for breast cancer Procedures SARAH SCREENING SCREENING MAMMOGRAPHY BI 2-VIEW BREAST INC Brendon Mcclendon DO [address] [place] [address] [facility] [address] [place] [address] Referral ID Status Reason Start Date Expiration Date Visits Requested Visits Authorized [id number] Pending Review Auto-Generat ed Referral 2 04/25/2023 1 1 [facility] for referral (narrative)* Diagnostic Procedure Only (Routine) - Pending Review Specialty Diagnoses / Procedures Referred By Anni t Referred To Contact MOLECULAR & FUNCTIONAL IMAGING Diagnoses Calculus of gallbladder without cholecystitis without obstruction Procedures NM HEPATOBILIARY W EF AND/OR RX HEPATOBIL SYST IMAG INC GB W/PHARMA INTERVENJ Brendon Blakely, DO [address] [place] [address] Molecular & Functional Imaging [address] [place] [address] Referral ID Status Reason Start Date Expiration Date Visits Requested Visits Authorized [id number] Pending Review Auto-Generat ed Referral 12/09/2022 01/08/2024 1 1 * Diagnostic Procedure Only (Routine) - Pending Review Specialty Diagnoses / Procedures Referred By Contac t Referred To Contact US IMAGING Diagnoses Fatty liver Procedures US ELASTOGRAPHY LIVER ULTRASOUND ELASTOGRAPHY PARENCHYMA Brendon Blakely DO [address] [place] [address] Us Imaging Referral ID Status Reason Start Date Expiration Date Visits Requested Visits Authorized [id number] Pending Review Auto-Generat ed Referral 12/09/2022 01/08/2024 1 1 * Diagnostic Procedure Only (Routine) - Pending Review Specialty Diagnoses / Procedures Referred By Contac t Referred To Contact US IMAGING Diagnoses Fatty liver Procedures US ABD RIGHT UPPER QUADRANT US ABDOMINAL REAL TIME W/IMAGE LIMITED Brendon Blakely DO [address] [place] [address] Us Imaging Referral ID Status Reason Start Date Expiration Date Visits Requested Visits Authorized [id number] Pending Review Auto-Generat ed Referral 12/09/2022 01/08/2024 1 1 [facility] Summary Purpose Family History No Family History Records FoundNo Family History Records Found Advance Directives No Advanced Directives Records FoundNo Advanced Directives Records Found Reason for Referral Specialty Diagnoses / Procedures Referred By Contac t Referred To Contact Dermatology Diagnoses Scalp psoriasis Procedures CONSULT TO DERMATOLOGY Erich Rizzo APRN.[employer] [address] [place] [address] Referral ID Status Reason Start Date Expiration Date Visits Requested Visits Authorized [id number] Ref Not Required PCP Requested Referral 01/15/2023 01/15/2024 1 1 Additional Source Comments INFORMATION SOURCE (unrecogn ized section and content) DATE CREATED AUTHOR AUTHOR'S CUCO ATION 03/18/2023 [facility] Source Comments (unrecognize d section and content) In the event this informatio n is protected by the Federal Confidentiality of Alcohol and Drug Abuse Patient Records regulations: The Federal rules restrict any use of the information to criminally investigate or prosecute any alcohol or drug abuse patient.[facility] the event this information is protected by the Federal Confidentiality of Alcohol and Drug Abuse Patient Records regulations: The Federal rules restrict any use of the information to criminally investigate or prosecute any alcohol or drug abuse patient.[facility] the event this information is protected by the Federal Confidentiality of Alcohol and Drug Abuse Patient Records regulations: The Federal rules restrict any use of the information to criminally investigate or prosecute any alcohol or drug abuse patient.[facility] the event this information is protected by the Federal Confidentiality of Alcohol and Drug Abuse Patient Records regulations: The Federal rules restrict any use of the information to criminally investigate or prosecute any alcohol or drug abuse patient.[facility] the event this information is protected by the Federal Confidentiality of Alcohol and Drug Abuse Patient Records regulations: The Federal rules restrict any use of the information to criminally investigate or prosecute any alcohol or drug abuse patient.[facility] the event this information is protected by the Federal Confidentiality of Alcohol and Drug Abuse Patient Records regulations: The Federal rules restrict any use of the information to criminally investigate or prosecute any alcohol or drug abuse patient.[facility] the event this information is protected by the Federal Confidentiality of Alcohol and Drug Abuse Patient Records regulations: The Federal rules restrict any use of the information to criminally investigate or prosecute any alcohol or drug abuse patient.[facility] the event this information is protected by the Federal Confidentiality of Alcohol and Drug Abuse Patient Records regulations: The Federal rules restrict any use of the information to criminally investigate or prosecute any alcohol or drug abuse patient.[facility] the event this information is protected by the Federal Confidentiality of Alcohol and Drug Abuse Patient Records regulations: The Federal rules restrict any use of the information to criminally investigate or prosecute any alcohol or drug abuse patient.[facility] the event this information is protected by the Federal Confidentiality of Alcohol and Drug Abuse Patient Records regulations: The Federal rules restrict any use of the information to criminally investigate or prosecute any alcohol or drug abuse patient.[facility] HospitalIn the event this information is protected by the Federal Confidentiality of Alcohol and Drug Abuse Patient Records regulations: The Federal rules restrict any use of the information to criminally investigate or prosecute any alcohol or drug abuse patient.[facility] HospitalIn the event this information is protected by the Federal Confidentiality of Alcohol and Drug Abuse Patient Records regulations: The Federal rules restrict any use of the information to criminally investigate or prosecute any alcohol or drug abuse patient.[facility] HospitalIn the event this information is protected by the Federal Confidentiality of Alcohol and Drug Abuse Patient Records regulations: The Federal rules restrict any use of the information to criminally investigate or prosecute any alcohol or drug abuse patient.[facility] HospitalIn the event this information is protected by the Federal Confidentiality of Alcohol and Drug Abuse Patient Records regulations: The Federal rules restrict any use of the information to criminally investigate or prosecute any alcohol or drug abuse patient.[facility] HospitalIn the event this information is protected by the Federal Confidentiality of Alcohol and Drug Abuse Patient Records regulations: The Federal rules restrict any use of the information to criminally investigate or prosecute any alcohol or drug abuse patient.[facility] HospitalIn the event this information is protected by the Federal Confidentiality of Alcohol and Drug Abuse Patient Records regulations: The Federal rules restrict any use of the information to criminally investigate or prosecute any alcohol or drug abuse patient.[facility] HospitalIn the event this information is protected by the Federal Confidentiality of Alcohol and Drug Abuse Patient Records regulations: The Federal rules restrict any use of the information to criminally investigate or prosecute any alcohol or drug abuse patient.[facility] HospitalIn the event this information is protected by the Federal Confidentiality of Alcohol and Drug Abuse Patient Records regulations: The Federal rules restrict any use of the information to criminally investigate or prosecute any alcohol or drug abuse patient.[facility] HospitalIn the event this information is protected by the Federal Confidentiality of Alcohol and Drug Abuse Patient Records regulations: The Federal rules restrict any use of the information to criminally investigate or prosecute any alcohol or drug abuse patient.[facility] HospitalIn the event this information is protected by the Federal Confidentiality of Alcohol and Drug Abuse Patient Records regulations: The Federal rules restrict any use of the information to criminally investigate or prosecute any alcohol or drug abuse patient.[facility] HospitalIn the event this information is protected by the Federal Confidentiality of Alcohol and Drug Abuse Patient Records regulations: The Federal rules restrict any use of the information to criminally investigate or prosecute any alcohol or drug abuse patient.[facility] HospitalIn the event this information is protected by the Federal Confidentiality of Alcohol and Drug Abuse Patient Records regulations: The Federal rules restrict any use of the information to criminally investigate or prosecute any alcohol or drug abuse patient.[facility] HospitalIn the event this information is protected by the Federal Confidentiality of Alcohol and Drug Abuse Patient Records regulations: The Federal rules restrict any use of the information to criminally investigate or prosecute any alcohol or drug abuse patient.[facility] HospitalIn the event this information is protected by the Federal Confidentiality of Alcohol and Drug Abuse Patient Records regulations: The Federal rules restrict any use of the information to criminally investigate or prosecute any alcohol or drug abuse patient.[facility] HospitalIn the event this information is protected by the Federal Confidentiality of Alcohol and Drug Abuse Patient Records regulations: The Federal rules restrict any use of the information to criminally investigate or prosecute any alcohol or drug abuse patient.[facility] HospitalIn the event this information is protected by the Federal Confidentiality of Alcohol and Drug Abuse Patient Records regulations: The Federal rules restrict any use of the information to criminally investigate or prosecute any alcohol or drug abuse patient.[facility] HospitalIn the event this information is protected by the Federal Confidentiality of Alcohol and Drug Abuse Patient Records regulations: The Federal rules restrict any use of the information to criminally investigate or prosecute any alcohol or drug abuse patient.[facility] HospitalIn the event this information is protected by the Federal Confidentiality of Alcohol and Drug Abuse Patient Records regulations: The Federal rules restrict any use of the information to criminally investigate or prosecute any alcohol or drug abuse patient.[facility] HospitalIn the event this information is protected by the Federal Confidentiality of Alcohol and Drug Abuse Patient Records regulations: The Federal rules restrict any use of the information to criminally investigate or prosecute any alcohol or drug abuse patient.[facility] Reason for Visit (unrecogniz ed section and content) Reason Comments Rx Refills Reason Comments Results Reason Onset Date Comments Refill Request 11/03/2021 Reason Onset Date Comments Refill Request 11/06/2021 Reason Onset Date Comments Refill Request 11/24/2021 Reason Onset Date Comments Refill Request 12/27/2021 Reason Onset Date Comments Refill Request 01/30/2022 Reason Onset Date Comments Refill Request 02/02/2022 Reason Onset Date Comments Refill Request 03/01/2022 Reason Onset Date Comments Refill Request 03/04/2022 Reason Onset Date Comments Refill Request 04/04/2022 Reason Onset Date Comments Refill Request 05/05/2022 Reason Comments Refill Request Medication refill fo r sheela Reason Comments Outside Labs-[facility] Ordered Reason Comments Results Orders Reason Onset Date Comments Yearly Exam 10/03/2022 Reason Onset Date Comments Refill Request 10/26/2022 Reason Comments Yearly Exam Reason Onset Date Comments Refill Request 02/01/2023 Reason Comments F/U 3 Month Care Teams (unrecognized sec tion and content) Senior Compliance Analyst Relationship Specialty Start Date End Date Brendon Blakely, DO [address] [place] [address] PCP - General Family Practice 12/28/12 Senior Compliance Analyst Relationship Specialty Start Date End Date Brendon Blakely DO [address] [place] [address] PCP - General Family Practice 12/28/12 Senior Compliance Analyst Relationship Specialty Start Date End Date Brendon Blakely DO [address] [place] [address] PCP - General Family Practice 12/28/12 Senior Compliance Analyst Relationship Specialty Start Date End Date Brendon Blakely DO [address] [place] [address] PCP - General Family Practice 12/28/12 Senior Compliance Analyst Relationship Specialty Start Date End Date Brendon Blakely DO [address] [place] [address] PCP - General Family Practice 12/28/12 Senior Compliance Analyst Relationship Specialty Start Date End Date Brendon Blakely, DO [address] [place] [address] PCP - General Family Practice 12/28/12 Senior Compliance Analyst Relationship Specialty Start Date End Date Brendon Blakely DO [address] [place] [address] PCP - General Family Practice 12/28/12 Senior Compliance Analyst Relationship Specialty Start Date End Date Brendon Blakely, DO [address] [place] [address] PCP - General Family Practice 12/28/12 Senior Compliance Analyst Relationship Specialty Start Date End Date Brendon Blakely, DO [address] [place] [address] PCP - General Family Medicine 12/28/12 Senior Compliance Analyst Relationship Specialty Start Date End Date Brendon Blakely, DO [address] [place] [address] PCP - General Family Medicine 12/28/12 Senior Compliance Analyst Relationship Specialty Start Date End Date Brendon Blakely, DO [address] [place] [address] PCP - General Family Medicine 12/28/12 Senior Compliance Analyst Relationship Specialty Start Date End Date Brendon Blakely, DO [address] [place] [address] PCP - General Family Medicine 12/28/12 Senior Compliance Analyst Relationship Specialty Start Date End Date Brendon Blakely, DO [address] [place] [address] PCP - General Family Medicine 12/28/12 Senior Compliance Analyst Relationship Specialty Start Date End Date Brendon Blakely, DO [address] [place] [address] PCP - General Family Medicine 12/28/12 Senior Compliance Analyst Relationship Specialty Start Date End Date Brendon Blakely, DO [address] [place] [address] PCP - General Family Medicine 12/28/12 Senior Compliance Analyst Relationship Specialty Start Date End Date Brendon Blakely, DO [address] [place] [address] PCP - General Family Medicine 12/28/12 Senior Compliance Analyst Relationship Specialty Start Date End Date Brendon Blakely, DO [address] [facility] [place] [address] PCP - General Family Medicine 12/28/12 Senior Compliance Analyst Relationship Specialty Start Date End Date Brendon Blakely DO [address] [facility] [place] [address] PCP - General Family Medicine 12/28/12 Senior Compliance Analyst Relationship Specialty Start Date End Date Brendon Blakely DO [address] [facility] [place] [address] PCP - General Family Medicine 12/28/12 Senior Compliance Analyst Relationship Specialty Start Date End Date Brendon Blakely DO [address] [place] [place] [address] PCP - General Family Medicine 12/28/12 Senior Compliance Analyst Relationship Specialty Start Date End Date Brendon Blakely DO [address] [facility] [address] PCP - General Family Medicine 12/28/12 Senior Compliance Analyst Relationship Specialty Start Date End Date Brendon Blakely DO [address] [place] [address] PCP - General Family Medicine 12/28/12 FOR RECORDS PERTAINING TO PATIENTS WHO ARE OR HAVE BEEN ENROLLED IN A CHEMICAL DEPENDENCY/SUBSTANCEABUSE PROGRAM, SOME INFORMATION MAY BE OMITTED. This clinical summary was aggregated from multiple sources. Caution should be exercised in using it in the provision of clinical care. This summary normalizes information from multiple sources, and as a consequence, information in this document may materially change the coding, format and clinical context of patient data. In addition, data may be omitted in some cases. CLINICAL DECISIONS SHOULD BE BASED ON THE PRIMARY CLINICAL RECORDS. [facility]. provides no warranty or guarantee of the accuracy or completeness of information in this document.
[2023-06-23 11:08] LABS: ALB/GLOB Ratio 0.8 RATIO (0.9-2.4); AST(SGOT) 21 U/L (15-37); Alanine Aminotransfer ALT/SGPT 30 U/L (13-56); Albumin, Serum 3.7 g/dL (3.2-5.0); Alkaline Phosphatase 69 U/L (45-117); Anion Gap 5 (5-15); BUN 39 mg/dL (7-18); BUN/Creat Ratio 12.5 RATIO (10-20); Calcium,Total 11.6 mg/dL (8.5-10.1); Chloride 101 mmol/L (98-107); Creatinine, Serum 3.12 mg/dL (0.55-1.02); EST Glomerular Filtration Rate 17 mL/min (>60); Est Glom Filt Rate - Afr Amer 20 mL/min (>60); Globulin 4.7 g/dL (2.2-4.2); Glucose 139 mg/dL (74-106); Potassium 4.5 mmol/L (3.5-5.1); Protein, Total 8.4 g/dL (6.4-8.2); Sodium Level 139 mmol/L (136-145)
== END | disposition home or self-care (01) ==
LOC: LAB 10:00
PROVIDERS: PCP Student in an Organized Health Care Education/Training Program; Referring Provider Internal Medicine Endocrinology, Diabetes & Metabolism; Visit Provider Internal Medicine Endocrinology, Diabetes & Metabolism
DX: E87.6 Hypokalemia (principal); E20.9 Hypoparathyroidism, unspecified; I10 Essential (primary) hypertension
CPT/HCPCS: 36415; 80053

== ENCOUNTER → 2023-06-29 | Outpatient (CLI) | payer OTHER, SELFPAY ==
--- OUTSIDE RECORDS SUMMARY | 2023-06-29 09:15 | XMS RPT_ITS | CCD ---
Author Name Unknown Address [address] [place] [address] Organization [facility] Care Team Providers Care Bolt Sawyer Name Role Phone Brendon Blakely DO Primary [...] HCL] Drug Allergy 7 Other: See Comments [facility] Work Phone: (20 sources) Latex; Translations: [LATEX] Drug Allergy 4 Hives [facility] (7 sources) Penicillins; Translations: [PENICILLINS] Drug Intolerance 3 Shortness of Breath [facility] Work Phone: (20 sources) predniSONE; Translations: [PREDNISONE] Drug Allergy 6 GI Upset, Other: See Comments [facility] Work Phone: (20 sources) Penicillins Drug Intolerance 3 Shortness of Breath [facility] Work Phone: Medications Completed/Discontinued Medications Medication [...] 96.4 [degF] Brendon Blakely DO Work Phone: [facility] 03-17-2023 09:56-0500 Body weight 123.38 kg Brendon Blakely DO Work Phone: [facility] 03-17-2023 09:56-0500 Diastolic blood pressure 90 mm[Hg] Brendon Blakely DO Work Phone: [facility] 03-17-2023 09:56-0500 Heart rate 88 /min Brendon Blakely DO Work Phone: [facility] 03-17-2023 09:56-0500 Respiratory rate 16 /min Brendon Blakely DO Work Phone: [facility] 03-17-2023 09:56-0500 Systolic blood pressure 146 mm[Hg] Brendon Blakely DO Work Phone: [facility] 12-09-2022 14:15-0400 Body height 166 cm Brendon Blakely DO Work Phone: [facility] 12-09-2022 14:15-0400 Body temperature 98.71 [degF] Brendon Blakely DO Work Phone: [facility] 12-09-2022 14:15-0400 Body weight 127.01 kg Brendon Blakely DO Work Phone: [facility] 12-09-2022 14:15-0400 Diastolic blood pressure 94 mm[Hg] Brendon Blakely DO Work Phone: [facility] 12-09-2022 14:15-0400 Heart rate 80 /min Brendon Blakely DO Work Phone: [facility] 12-09-2022 14:15-0400 Respiratory rate 20 /min Brendon Blakely DO Work Phone: [facility] 12-09-2022 14:15-0400 Systolic blood pressure 146 mm[Hg] Brendon Blakely DO Work Phone: [facility] 10-03-2022 15:18-0400 Body height 166.4 cm Teri Wasserman MD Work Phone: [facility] 10-03-2022 15:18-0400 Body weight 126.06 kg Teri Wasserman MD Work Phone: [facility] 10-03-2022 15:18-0400 Diastolic blood pressure 84 mm[Hg] Teri Wasserman MD Work Phone: [facility] 10-03-2022 15:18-0400 Systolic blood pressure 132 mm[Hg] Teri Wasserman MD Work Phone: [facility] 05-08-2022 12:35-0500 Body weight 125.28 kg Erich Rizzo SPORTS WRITER.MANAGER SOFTWARE DEVELOPMENT Work Phone: [facility] 05-08-2022 12:35-0500 Diastolic blood pressure 78 mm[Hg] Erich Rizzo SPORTS WRITER.MANAGER SOFTWARE DEVELOPMENT Work Phone: [facility] 05-08-2022 12:35-0500 Heart rate 60 /min Erich Rizzo SPORTS WRITER.MANAGER SOFTWARE DEVELOPMENT Work Phone: [facility] 05-08-2022 12:35-0500 Respiratory rate 16 /min Erich Rizzo SPORTS WRITER.MANAGER SOFTWARE DEVELOPMENT Work Phone: [facility] 05-08-2022 12:35-0500 Systolic blood pressure 138 mm[Hg] Erich Rizzo SPORTS WRITER.MANAGER SOFTWARE DEVELOPMENT Work Phone: [facility] 10-25-2021 14:08-0400 Body weight 122.29 kg Erich Zurawick SPORTS WRITER.MANAGER SOFTWARE DEVELOPMENT Work Phone: [facility] 10-25-2021 14:08-0400 Diastolic blood pressure 64 mm[Hg] Erich Zurawick SPORTS WRITER.MANAGER SOFTWARE DEVELOPMENT Work Phone: [facility] 10-25-2021 14:08-0400 Heart rate 72 /min Erich Zurawick SPORTS WRITER.MANAGER SOFTWARE DEVELOPMENT Work Phone: [facility] 10-25-2021 14:08-0400 Respiratory rate 16 /min Erich Zurawick SPORTS WRITER.MANAGER SOFTWARE DEVELOPMENT Work Phone: [facility] 10-25-2021 14:08-0400 Systolic blood pressure 138 mm[Hg] Erich Zurawick SPORTS WRITER.MANAGER SOFTWARE DEVELOPMENT Work Phone: [facility] 09-18-2021 17:02-0400 Body weight 122.96 kg Erich Zurawick SPORTS WRITER.MANAGER SOFTWARE DEVELOPMENT Work Phone: [facility] 09-18-2021 17:02-0400 Diastolic blood pressure 90 mm[Hg] Erich Zurawick SPORTS WRITER.MANAGER SOFTWARE DEVELOPMENT Work Phone: [facility] 09-18-2021 17:02-0400 Heart rate 64 /min Erich Zurawick SPORTS WRITER.MANAGER SOFTWARE DEVELOPMENT Work Phone: [facility] 09-18-2021 17:02-0400 Respiratory rate 18 /min Erich Zurawick SPORTS WRITER.MANAGER SOFTWARE DEVELOPMENT Work Phone: [facility] 09-18-2021 17:02-0400 Systolic blood pressure 142 mm[Hg] Erich Zurawick SPORTS WRITER.MANAGER SOFTWARE DEVELOPMENT Work Phone: [facility] Encounters Encounter Date Encounter Type Care Provider Facility Start: 03-17-2023 End: 03-17-2023 ambulatory BRENDON BLAKELY Facility:[facility] Start: 03-17-2023 End: 03-17-2023 Patient encounter procedure Brendon Blakely DO Work Phone: [facility] Procedures Date Procedure Procedure Detail Performing Clinician Start: 09-23-2022 Mammography Teri hines MD Work Phone: Start: 02-06-2021 Mammography Erich Ha hughes SPORTS WRITER.MANAGER SOFTWARE DEVELOPMENT Work Phone: Start: 10-03-2019 Colonoscopy Erichmarkel hughes SPORTS WRITER.MANAGER SOFTWARE DEVELOPMENT Work Phone: Start: 10-12-2018 Lipid 1996 panel - S nan or Plasma Brendon Blakely DO Work Phone: Plan of Treatment Date Care Activity Detail Author Start: 10-04-2027 HPV TESTING HPV TESTING [facility] Start: 10-04-2027 PAP TESTING PAP TESTING [facility] Start: 03-17-2024 Annual PCP Team Industrial Sewer gerald Disease Visit Annual PCP Team Chronic Disease Visit [facility] Start: 03-17-2024 Covid-19 Vaccine ( season) Covid-19 Vaccine ( season) [facility] Immunizations Immunization Date Immunization Notes Care Provider Marino day 02-19-2022 influenza virus vacc ine, unspecified formulation Brendon Blakely DO Work Phone: [facility] 01-12-2013 tetanus toxoid, redu angela diphtheria toxoid, and acellular pertussis vaccine, adsorbed Erich Zurawick SPORTS WRITER.MANAGER SOFTWARE DEVELOPMENT Work Phone: [facility] Payers Date Payer Category Payer Private Health Insurance [id number] 2018 Private Health Insurance [employer] PPO [id number] 2018-Present [phone] [address] [place] [address] O [id number] 2018 Private Health Insurance [id number] 2018 Private Health Insurance [id number] Social History Date Type Detail Facility Start: 12-28-2012 End: 10-03-2022 Tobacco smoking status NHIS Ex-smoker [facility] Work Phone: End: 05-04-2002 History of tobacco use Current smoker [facility] Work Phone: Start: 12-28-2012 End: 09-15-2022 Cigarettes smoked current (pack per day) - Reported 0.5 [facility] Start: 12-28-2012 End: 10-03-2022 Tobacco use and exposure Smokeless tobacco non-user [facility] Work Phone: Start: 01-23-2021 End: 03-17-2023 Alcohol intake Current non-drinker of alcohol (finding) [facility] Start: 07-13-2020 End: 05-08-2022 History SDOH Alcohol Frequency 1 [facility] Start: 07-13-2020 End: 05-08-2022 History SDOH Social Connections Phone 2 [facility] Start: 07-13-2020 End: 05-08-2022 History SDOH Social Connections Living 5 [facility] Start: 07-13-2020 End: 05-08-2022 History SDOH Physical Activity DPW 0 [facility] Start: 07-13-2020 End: 05-08-2022 History SDOH Financial 4 [facility] Start: 06-01-2019 Education 21 [facility] Start: 1970 Sex Assigned At Not on file [facility] Start: 09-18-2021 History SDOH Alcohol Std Drinks 98 [facility] Start: 09-18-2021 History SDOH Financial 3 [facility] Start: 09-08-2021 End: 10-25-2021 Exposure to SARS-CoV-2 (event) Not sure [facility] End: 05-04-2002 History of tobacco use Cigarette Smoker [facility] Work Phone: Start: 05-08-2022 End: 09-15-2022 Social connection and isolation panel [facility] Do you belong to any clubs or organizations such as gnosticist groups, unions, fraternal or athletic groups, or school groups? No [facility] Are you now , , , , never or living with a partner? [facility] How often to you hav e a drink containing alcohol? Never [facility] How many standard dr inks containing alcohol do you have on a typical day? Patient does not drink [facility] How hard is it for y ou to pay for the very basics like food, housing, medical care, and heating Not very hard [facility] Do you feel stress - tense, restless, nervous, or anxious, or unable to sleep at night because your mind is troubled all the time - these days [OSQ] Rather much [facility] (I/We) worried wheedgar er (my/our) food would run out before (I/we) got money to buy more. Never true [facility] Clinical Notes 04-22-2017 to 03-17-2023 Brendon Blakely DO - 03/17/2023 11:55 AM ESTTelephone Encounter - Irene Pisano Ma - 02/02/2023 11:37 AM EDTTelephone Encounter - Irene Pisano Ma - 01/15/2023 3:35 PM EDT Note Date & Type Note Facility 03-17-2023 Note HNO ID: [id number] Author: Brendon Blakely DO Service: ? Author Type: Physician Type: Progress Notes Filed: 03/17/2023 12:02 PM Note Text: CC: Danni Long is a 52 year old female who presents to the office for follow up HPI: At last OFFICE VISIT in Dec 2022 Mood, managed currently by Dr. Bellamy Psychiatrist at [facility]. She has been changed to Pristiq [...] high CRP levels. Otherwise normal. Hasn't seen Chief Hospital Administrator yet. Hyperparathyroidism, CKD, sees Dr. Amaya for [...] Has follow up with DR. Amaya for Sales And Marketing Vice President in Apr. IFG, a1c in July 2022 was at 5.8%. has seen Manufacturing Technician Dr. Benítez for this last lab check Mood, seeing Psychiatrist Dr. Bellamy, feels it is stable. Does feel like the pristique medication is causing her to have some constipation/bloating but she feels this is managed and mild. Scalp psoriasis, stable. Recently had kenalog injection due to flare up per Dr. David Zelaya tech writer- doesn't feel that this benefitted her much. [...] daily at bedtime. Per Psych- Keyur Dubon, MANAGER SOFTWARE DEVELOPMENT ketoconazole (NIZORAL) 2 % cream Apply 1 [...] Breath Prednisone GI Upset, Other: See Comments [place] jittery Wellbutrin [Bupropi* Other: See Comments sweating [...] CV: RRR, n (more content not included)... [facility] 03-17-2023 History of Present illness Narrative CC: Danni Long is a 52 year old female who presents to the office for follow up HPI: At last OFFICE VISIT in Dec 2022 Mood, managed currently by Dr. Bellamy Psychiatrist at [facility]. She has been changed to Pristiq [...] high CRP levels. Otherwise normal. Hasn't seen Chief Hospital Administrator yet. Hyperparathyroidism, CKD, sees Dr. Amaya for [...] Has follow up with DR. Amaya for Sales And Marketing Vice President in Apr. IFG, a1c in July 2022 was at 5.8%. has seen Manufacturing Technician Dr. Benítez for this last lab check Mood, seeing Psychiatrist Dr. Bellamy, feels it is stable. Does feel like the pristique medication is causing her to have some constipation/bloating but she feels this is managed and mild. Scalp psoriasis, stable. Recently had kenalog injection due to flare up per Dr. David Zelaya tech writer- doesn't feel that this benefitted her much. [...] Breath Prednisone GI Upset, Other: See Comments [place] jittery Wellbutrin [Bupropi* Other: See Comments sweating [...] plan. See patient instructions. Brendon Blakely DO [address] [place] [address] documented in this encounter [facility] 02-02-2023 Miscellaneous Notes Last office visit: 12/09/22 F/u scheduled: 03/17/23 Irene Pisano Ma documented in this encounter [facility] 01-15-2023 Miscellaneous Notes Referral, OV, Demo, med list, faxed to Dr. David Zelaya's office. Pt notified via [employer]. Irene Pisano Ma Consult placed. Please fax. Please also include office note from 12/09/[address] Blakely. Let pt know once completed. Thank you, Erich Rizzo APRN.MANAGER SOFTWARE DEVELOPMENT documented in this encounter [facility] 12-10-2022 Note HNO ID: [id number] Author: Brendon Blakely, DO Service: ? Author [...] and panic symptoms, has been seeing Psychiatrist SWATCH FOLDER Jorden Dubon at [facility] in the past. Her SWATCH FOLDER moved to different location so now has recently Had medication change from Zoloft to Pristiq in Jun by Dr. Bellamy Psychiatrist. Doesn't know if this is affecting her symptoms above. Currently Mood, managed currently by Dr. Bellamy Psychiatrist at [facility]. She has been changed to Pristiq [...] high CRP levels. Otherwise normal. Hasn't seen Chief Hospital Administrator yet. Hyperparathyroidism, CKD, sees Dr. Amaya for [...] Breath Prednisone GI Upset, Other: See Comments [place] jittery Wellbutrin [Bupropi* Other: See Comments sweating ROS: See HPI PE: 12/09/22 1415 BP: 146/94 Pulse: 80 Resp: 20 Temp: 37.1 ?C (98.7 ?F) TempSrc: Left Tympanic Weight: 127 (more content not included)... [facility] 12-10-2022 History of Present illness Narrative CC: [...] and panic symptoms, has been seeing Psychiatrist SWATCH FOLDER Jorden Dubon at [facility] in the past. Her SWATCH FOLDER moved to different location so now has recently Had medication change from Zoloft to Pristiq in Jun by Dr. Bellamy Psychiatrist. Doesn't know if this is affecting her symptoms above. Currently Mood, managed currently by Dr. Bellamy Psychiatrist at [facility]. She has been changed to Pristiq [...] high CRP levels. Otherwise normal. Hasn't seen Chief Hospital Administrator yet. Hyperparathyroidism, CKD, sees Dr. Amaya for [...] daily at bedtime. Per Psych- Keyur Dubon, MANAGER SOFTWARE DEVELOPMENT ketoconazole (NIZORAL) 2 % cream Apply 1 [...] Breath Prednisone GI Upset, Other: See Comments [place] jittery Wellbutrin [Bupropi* Other: See Comments sweating [...] diet of 1000 mg/day for under 50, 1315-3547 mg/day for 50+ - Discussed need and [...] ICD10: M79.10 Mildly high CRP, consider seeing Chief Hospital Administrator if worsening, start on only prn use not daily use of meloxicam, she is aware of r/b/i - MELOXICAM 15 MG TABLET 4. Mixed hyperlipidemia - ICD9: 272.2, ICD10: E78.2 - Control undetermined, due for labs - Continue current medications - Counseled on healthy diet and regular exercise 5. Hypoparathyroidism, unspecified hypoparathyroidism type (HCC) - ICD9: 252.1, ICD10: E20.9 - f/u with Michael eBnítez Manufacturing Technician 6. Fatty liver - ICD9: 571.8, ICD10: [...] L40.9 - rx as below, consider seeing [employer] Field Technician if worsens - CLOBETASOL 0.05 % SCALP SOLUTION Brendon Blakely DO To ER if develops chest pain, shortness of breath, or severe worsening of symptoms. Discussed risks, benefits, alternatives, and potential side effects of medications. Patient expressed understanding and agreed with the plan. Brendon Blakely DO [address] [place] [address] documented in this encounter [facility] 10-27-2022 Miscellaneous Notes Daniel--09/15/22 Nov--12/09/22 Last refill--08/04/22 90 with 0 refills Last labs--09/08/22 documented in this encounter [facility] 10-03-2022 Note HNO ID: [id number] Author: Teri Wasserman MD Service: ? Author Type: Physician Type: Progress Notes Filed: 10/03/2022 3:49 PM Note Text: Auto Accessories Installer offered: Patient declines. Danni is a 51 [...] L2 SAB0 IAB0 Ectopic0 Multiple0 Live Births0 Ecg Technician History LMP: 08/09/2022, Ablation Age at Menarche: Age at First : Age at Menopause: Ecg Technician History Comments: Sexual Activity: Not Currently; No [...] a sebaceous cyst, normal Bartholin's glands, urethra, [place]'s glands, no vulvar lesions, no cervical lesions, good vaginal support, physiologic discharge present, normal appearing perineal body and perianal region BIMANUAL: uterus normal size, shape and consistency, no adnexal masses, and non-tender RECTOVAGINAL: deferred. NEURO: alert and oriented x3,exam grossly non-focal EXTREMITIES: normal ASSESSMENT/PLAN: 1) Health maintenance: Pap done with HPV. Mammogram up to date (gets at [facility]) Nutrition, exercise and routine health maintenance [...] AND call if enlarges Teri Wasserman MD [facility] 10-03-2022 Instructions Teri Wasserman MD - 10/03/2022 [...] scratching at night. documented in this encounter [facility] 10-03-2022 History of Present illness Narrative Auto Accessories Installer offered: Patient declines. Danni is a 51 [...] L2 SAB0 IAB0 Ectopic0 Multiple0 Live Births0 Ecg Technician History LMP: 08/09/2022, Ablation Age at Menarche: Age at First : Age at Menopause: Ecg Technician History Comments: Sexual Activity: Not Currently; No [...] a sebaceous cyst, normal Bartholin's glands, urethra, [place]'s glands, no vulvar lesions, no cervical lesions, good vaginal support, physiologic discharge present, normal appearing perineal body and perianal region BIMANUAL: uterus normal size, shape and consistency, no adnexal masses, and non-tender RECTOVAGINAL: deferred. NEURO: alert and oriented x3,exam grossly non-focal EXTREMITIES: normal ASSESSMENT/PLAN: 1) Health maintenance: Pap done with HPV. Mammogram up to date (gets at [facility]) Nutrition, exercise and routine health maintenance [...] Teri Wasserman MD documented in this encounter [facility] 09-15-2022 Note HNO ID: [id number] Author: Brendon Blakely, DO Service: ? Author [...] and panic symptoms, has been seeing Psychiatrist SWATCH FOLDER Jorden Dubon at [facility] in the past. Her SWATCH FOLDER moved to different location so now has [...] daily at bedtime. Per Psych- Keyur Dubon, MANAGER SOFTWARE DEVELOPMENT ketoconazole (NIZORAL) 2 % cream Apply 1 application to affected area daily before breakfast. hydrocortisone 2.5 % cream Apply 1 application to affected area daily at bedtime. Location: facial, avoid eyes/lips No current facility-administered medications for this visit. ALLERGIES Allergen Reactions Latex Hives Penicillins Shortness of Breath Prednisone GI Upset, Other: See Comments [place] jittery Wellbutrin [Bupropi* Other: See Comments sweating [...] alternatives, and p (more content not included)... [facility] 07-04-2022 Miscellaneous Notes Noted. Thank you, Erich Rizzo APRN.MANAGER SOFTWARE DEVELOPMENT Pt called and is notified of providers results and instructions. Pt voices understanding. Faxed labs over to [facility] Lab at [phone]. Pts A1C was 5.8 and PTH was 10. Mary Blair RN Left message for patient to return call Looks like rest of labs are scanned in chart. Abigail Orr Please call patient and let her know that I got lab work results back from [facility]. TSH is elevated at 5.25. I know patient follows with endocrinology -- please make corporate communications specialist aware of this. I know pt has hx of Acute kidney injury while in the hospital this past summer -- BUN and CR are slightly elevated. GFR is very slightly low at 59. I would like pt to increase fluids and repeat this lab work in 2-4 weeks to recheck this status. I know she does not need to follow with institution director anymore so I just want to double [...] check on this. Thank you, Erich Rizzo APRN.MANAGER SOFTWARE DEVELOPMENT documented in this encounter [facility] 07-03-2022 Note HNO ID: [id number] Author: Amira Reyna LPN Service: ? Author Type: ? Type: Progress Notes Filed: 07/03/2022 12:20 PM Note Text: Please see ordered labs: Scan on 07/03/2022 10:17 AM by External Provider: Miscellaneous Lab Scan on 07/03/2022 10:37 AM by External Provider: Miscellaneous Lab Alla Reyna LPN [facility] 07-03-2022 History of Present illness Narrative Please see ordered labs: Scan on 07/03/2022 10:17 AM by External Provider: Miscellaneous Lab Scan on 07/03/2022 10:37 AM by External Provider: Miscellaneous Lab Alla Reyna LPN documented in this encounter [facility] 05-09-2022 Miscellaneous Notes Labs faxed to [facility] per pt request. Notified via [employer]. Irene Pisano Ma documented in this encounter [facility] 05-08-2022 Note HNO ID: [id number] Author: Erich Hawkins APRN.FADI Service: ? Author [...] Scheduled to see psychiatrist this month at [employer] where she works. Old psychiatrist left and [...] for this. Has been stable without concerns. Sales And Marketing Vice President said she does not need to come [...] Breath Prednisone GI Upset, Other: See Comments [place] jittery Wellbutrin [Bupropi* Other: See Comments sweating [...] daily at bedtime. Per Psych- Keyur Dubon, MANAGER SOFTWARE DEVELOPMENT ketoconazole (NIZORAL) 2 % cream Apply 1 [...] well nourished.. Skin: (more content not included)... [facility] 05-08-2022 History of Present illness Narrative Chief [...] Scheduled to see psychiatrist this month at [place] where she works. Old psychiatrist left and [...] for this. Has been stable without concerns. Sales And Marketing Vice President said she does not need to come [...] Breath Prednisone GI Upset, Other: See Comments [place] jittery Wellbutrin [Bupropi* Other: See Comments sweating [...] Patient agreeable to treatment plan. Erich Hawkins APRN.MANAGER SOFTWARE DEVELOPMENT [address] [place] [address] documented in this encounter [facility] 05-07-2022 Miscellaneous Notes Called pt gave [...] Anu Vanegas LPN documented in this encounter [facility] 04-10-2022 Miscellaneous Notes PDMP website checked [...] up to 30 days. Authorizing Provider: ERICH HAKWINS APRN.CNP Patient is calling in regards to [...] Keira Treadwell LPN documented in this encounter [facility] 03-26-2022 Note Patient Outreach (IN TMMN) DANNI LONG ([id number]) 1970 F Date Time Provider Department 03/26/22 BRENDON BLAKELY During your visit today, we recorded the following information about you: Allergies As of Date: 03/26/2022 Noted Allergy Reaction LATEX 08/17/2013 4 - Hives PENICILLINS 12/28/2012 12 - Shortness of Breath PREDNISONE 03/19/2016 8 - GI Upset 14 - Other: See Comments Comments: [place] jittery WELLBUTRIN (BUPROPION HCL) 12/03/2016 14 - Other: See Comments Comments: sweating Date Reviewed: 10/25/2021 Reviewed by: Erich Hawkins APRN.MANAGER SOFTWARE DEVELOPMENT - Fully Assessed Visit Diagnosis:Encounter for screening mammogram for breast cancer [Z12.31] Order(s):[facility] SCREENING [[id number]] Order #: [id number] FUTURE Prescriptions as of 03/31/2022 - clonazePAM [...] Encounter Status:Closed by IQRA, PRODUSER on 03/31/22 [facility] 03-05-2022 Miscellaneous Notes The following approved medication [...] Keira Treadwell LPN documented in this encounter [facility] 03-05-2022 Miscellaneous Notes [facility] checked and validated. All prescriptions have [...] Christie Petty LPN documented in this encounter [facility] 02-03-2022 Miscellaneous Notes DANIEL--10/25/21 NOV--NOT SCHEDULED LAST REFILL--11/06/21 90 WITH 0 REFILLS LAST LABS--01/24/22 documented in this encounter [facility] 01-30-2022 Miscellaneous Notes PDMP website checked [...] days. Authorizing Provider: ERICH HAWKINS APRN.CNP Patient phones requesting refills as follows: Requested Prescriptions Pending Prescriptions Disp Refills clonazePAM (KLONOPIN) 0.5 mg tablet 30 tablet 0 Sig: Take 1 tablet by mouth once daily as needed for up to 30 days. DANIEL-10/25/21 Labs-01/24/22 NOV-none med filled 12/28/21 Please review and advise. Keira Treadwell LPN documented in this encounter [facility] 12-28-2021 Miscellaneous Notes The following approved medication requests have been transmitted electronically. Requested Prescriptions Signed Prescriptions Disp Refills clonazePAM (KLONOPIN) 0.5 mg tablet 30 tablet 0 Sig: Take 1 tablet by mouth once daily as needed for up to 30 days. Authorizing Provider: VIKTORIYA CHOE APRN.CNP [facility] website checked and validated. All [...] Keira Treadwell LPN documented in this encounter [facility] 11-25-2021 Miscellaneous Notes The following approved medication requests have been transmitted electronically. Signed Prescriptions Disp Refills clonazePAM (KLONOPIN) 0.5 mg tablet 30 tablet 0 Sig: Take 1 tablet by mouth once daily as needed for up to 30 days. WILLIAM Class: C-IV SUSY: No Authorizing Provider: VIKTORIYA CHOE APRN.MANAGER SOFTWARE DEVELOPMENT PDMP website checked and validated. All prescriptions [...] Keira Treadwell LPN documented in this encounter [facility] 11-22-2021 Miscellaneous Notes Patient calls and [...] blood work results from Thursday done at [facility]. Kidney function continues to improve and is almost back within normal range. Lipid panel is elevated with an LDL of 161 and total cholesterol of 252. Please ask patient if she is taking the 10 mg Lipitor routinely. If so, I recommend increasing this dosage to 20 mg daily and repeat lipid panel in 3 months. Rx sent to [facility] if pt agreeable. May need to fax blood work to [facility] -- ask pt. The following approved medication requests have been transmitted electronically. Signed Prescriptions Disp Refills atorvastatin (LIPITOR) 20 mg tablet 90 tablet 0 Sig: Take 1 tablet by mouth once daily. For cholesterol. Authorizing Provider: ERICH HAWKINS APRN.CNP documented in this encounter [facility] 11-06-2021 Miscellaneous Notes Refilled in prior encounter. Erich Hawkins APRN.CNP The following approved medication requests have been transmitted electronically. Refused Prescriptions Disp Refills losartan (COZAAR) 100 mg tablet 90 tablet 0 Sig: Take 1 tablet by mouth once daily. SUSY: No Refused By: ERICH HAWKINS Reason for Refusal: Request already responded to by other means (for example, phone, fax) Erich Zurawick, SPORTS WRITER.MANAGER SOFTWARE DEVELOPMENT daniel-- 10/25/21 Next-- Nothing scheduled Last refill-- 07/29/21 90 With 0 refills Last labs--10/25/21 documented in this encounter [facility] 11-06-2021 Miscellaneous Notes Pt called in [...] Keira Treadwell LPN documented in this encounter [facility] 10-25-2021 Nurse Note All labs were faxed to [facility] as requested. documented in this encounter [facility] 10-25-2021 Instructions Erich Hawkins APRN.FADI - [...] to recheck cholesterol. documented in this encounter [facility] 10-25-2021 History of Present illness Narrative Chief Complaint Patient presents with: Results HPI Danni Long is a 51 year old female who presents here today for Above Complaints. Danni is an established patient of Dr. Dany DO and myself. Telephone encounter on 10/02 giving results done by [facility] ordered from Hospital Follow-up appointment. Blood work done on 09/23: BUN 23 Cr 1.65 GFR 35 Ca 7.4 --- following with corporate communications specialist Dr. Benítez for this d/t autoimmunne hypoparathyroidism. Chol 266 Triglycerides 296 LDL 167 HDL 40 TSH 4.32 -- endocrine also follows this. Improved kidney function from 09/19 as in chart under external labs. Today... Blood work results faxed over today from [facility] include: BUN 18 Cr 1.11 GFR 55 Ca 8.5 COVID + after recent ER visit which may be contributing to recent delay in healing of AYLA d/t body fighting numerous conditions. Discussed TSH levels and cholesterol levels from prior. Pt reports TSH level fluctuates often d/t parathyroid function. Manufacturing Technician is also following TSH levels. Does not [...] Breath Prednisone GI Upset, Other: See Comments [place] jittery Wellbutrin [Bupropi* Other: See Comments sweating [...] daily at bedtime. Per Psych- Keyur Dubon, MANAGER SOFTWARE DEVELOPMENT ketoconazole (NIZORAL) 2 % cream Apply 1 [...] activity was identified. 10/25/2021 by Erich Hawkins APRN.MANAGER SOFTWARE DEVELOPMENT 3. Panic attacks - ICD9: 300.01, ICD10: [...] to regimen. Faxed all lab results to [facility] to have completed. RTO as needed. Follow-up update in 2 weeks. Prescription instructions reviewed with patient as applicable. Potential red flag symptoms discussed with the patient. Reviewed appropriate action plan to take if red flag symptoms occur. Patient agreeable to treatment plan. I spent 55 minutes in the visit, with more than 50% of the total odcz-vc-gtdd time of the visit in counseling / coordination of care. Erich Hawkins APRN.CNP [address] [place] [address] documented in this encounter [facility] 10-09-2021 Miscellaneous Notes The following approved medication requests have been transmitted electronically. Signed Prescriptions Disp Refills amLODIPine (NORVASC) 10 mg tablet 90 tablet 1 Sig: Take 1 tablet by mouth once daily. SUSY: No Erich Hawkins APRN.CNP Please see pt message Abigail Mares Ma documented in this encounter [facility] 09-18-2021 History of Present illness Narrative [...] well managed with this dosage. Had recent [facility] hospital admission from 09/12/21-09/14/21 d/t abnormal calcium levels. Was having HTN, diarrhea, CP, and confusion. Dx of autoimmune hypoparathyroidism. Prior to admission had low Ca level and corporate communications specialist recently increased Ca supplement and calcitriol. Pt arrived to ER and found to be hypercalcemic (up to 14.5) and AYLA from blood work. Spent 2 night in hospital and discharged home on 09/14. Had follow-up appointment with jeanerette doctor post-hospital visit and is following closely with her corporate communications specialist, Dr. Benítez, q2 days via virtual visits. [...] Breath Prednisone GI Upset, Other: See Comments [place] jittery Wellbutrin [Bupropi* Other: See Comments sweating [...] Will order and fax blood work to [facility] as follow-up from hospital values. Continue to closely follow with corporate communications specialist and follow recommendations. - TSH BLD - [...] with more than 50% of the total orru-sv-rdts time of the visit in counseling / coordination of care. Prescription instructions reviewed with patient as applicable. Potential red flag symptoms discussed with the patient. Reviewed appropriate action plan to take if red flag symptoms occur. Patient agreeable to treatment plan. Erich Hawkins APRN.MANAGER SOFTWARE DEVELOPMENT [address] [place] [address] documented in this encounter [facility] 09-18-2021 Miscellaneous Notes Pt rescheduled with [place] today at 5pm OK per BRIANA Mares Ma documented in this encounter [facility] 08-14-2021 Miscellaneous Notes The following approved [...] Last labs-- 07/29/21 documented in this encounter [facility] documented as of this encounter (statuses as of 08/14/2021) [facility] History of Past illness Narrative* Problem [...] of this encounter (statuses as of 08/19/2021) [facility] of [facility] Narrative* Problem [...] of this encounter (statuses as of 09/18/2021) [facility] Narrative* Problem [...] of this encounter (statuses as of 09/18/2021) [facility] of [facility] Narrative* Problem [...] of this encounter (statuses as of 10/09/2021) [facility] Narrative* Problem [...] of this encounter (statuses as of 10/25/2021) [facility] Narrative* Problem [...] of this encounter (statuses as of 11/06/2021) [facility] Narrative* Problem [...] of this encounter (statuses as of 11/06/2021) [facility] Narrative* Problem [...] of this encounter (statuses as of 11/22/2021) [facility] Narrative* Problem [...] of this encounter (statuses as of 11/25/2021) [facility] Narrative* Problem [...] of this encounter (statuses as of 12/29/2021) [facility] N[facility]ative* Problem [...] of this encounter (statuses as of 01/30/2022) [facility] N[facility]ative* Problem [...] of this encounter (statuses as of 02/03/2022) [facility] N[facility]ative* Problem [...] of this encounter (statuses as of 03/05/2022) [facility] Narrative* Problem [...] of this encounter (statuses as of 03/05/2022) [facility] Narrative* Problem [...] of this encounter (statuses as of 03/31/2022) [facility] N[facility]* Problem [...] of this encounter (statuses as of 04/10/2022) [facility]* Problem [...] of this encounter (statuses as of 05/08/2022) [facility] N[facility]* Problem [...] of this encounter (statuses as of 05/09/2022) [facility]* Problem [...] of this encounter (statuses as of 05/09/2022) [facility]* Problem [...] of this encounter (statuses as of 07/03/2022) [facility]* Problem [...] of this encounter (statuses as of 07/04/2022) [facility]* Problem [...] of this encounter (statuses as of 09/09/2022) [facility]* Problem [...] of this encounter (statuses as of 10/03/2022) [facility]* Problem [...] of this encounter (statuses as of 10/28/2022) [facility]* Problem [...] of this encounter (statuses as of 12/10/2022) [facility]* Problem [...] of this encounter (statuses as of 01/16/2023) [facility]* Problem [...] of this encounter (statuses as of 02/03/2023) [facility]* Problem [...] of this encounter (statuses as of 03/17/2023) [facility] Diagnosis Situational anxiety Other anxiety states Panic attacks Panic disorder without agoraphobia [facility] Diagnosis Situational anxiety- Primary Other anxiety states Panic attacks Panic disorder without agoraphobia Swelling of upper arm Hypoparathyroidism, unspecified hypoparathyroidism type (HCC) AYLA (acute kidney injury) (HCC) Acute kidney failure, unspecified Vitamin D deficiency Unspecified vitamin D deficiency [facility] Diagnosis AYLA (acute kidney injury) (HCC)- Primary Acute kidney failure, unspecified Situational anxiety Other anxiety states Panic attacks Panic disorder without agoraphobia Hypoparathyroidism, unspecified hypoparathyroidism type (HCC) Thyroid disorder screening Screening for thyroid disorder Mixed hyperlipidemia Primary hypertension Unspecified essential hypertension Bilateral leg edema Edema [facility] Diagnosis Hypertension, essential Unspecified essential hypertension [facility] Diagnosis Hypertension, essential Unspecified essential hypertension [facility] Diagnosis Mixed hyperlipidemia- Primary [facility] Diagnosis Situational anxiety Other anxiety states Panic attacks Panic disorder without agoraphobia [facility] Diagnosis Hypertension, essential Unspecified essential hypertension [facility] Diagnosis Situational anxiety Other anxiety states Panic attacks Panic disorder without agoraphobia documented in this encounter [facility]* Diagnosis Encounter for screening mammogram for breast cancer [facility] Diagnosis Situational anxiety Other anxiety states Panic attacks Panic disorder without agoraphobia [facility] Diagnosis Hypertension, essential Unspecified essential hypertension Situational anxiety Other anxiety states Panic attacks Panic disorder without agoraphobia [facility] Diagnosis Situational anxiety- Primary Other anxiety states Hypertension, essential Unspecified essential hypertension Panic attacks Panic disorder without agoraphobia Mixed hyperlipidemia Hypoparathyroidism, unspecified hypoparathyroidism type (HCC) [facility] Diagnosis AYLA (acute kidney injury) (HCC)- Primary Acute kidney failure, unspecified [facility] Diagnosis Encounter for gynecological examination without abnormal finding- Primary Routine gynecological examination Encounter for screening for malignant neoplasm of cervix Screening for malignant neoplasm of the cervix Special screening examination for human papillomavirus (HPV) Encounter for screening mammogram for malignant neoplasm of breast Other screening mammogram [facility] Diagnosis Routine physical examination- Primary Routine [...] psoriasis Other psoriasis [facility] Diagnosis Scalp psoriasis- Primary Other psoriasis [facility] Diagnosis Hypertension, essential Unspecified essential hypertension [facility] Diagnosis Borderline abnormal thyroid function test- Primary Nonspecific abnormal results of thyroid function study Vitamin B12 deficiency Other B-complex deficiencies Hypertension, essential Unspecified essential hypertension Scalp psoriasis Other psoriasis Mixed hyperlipidemia Hypoparathyroidism, unspecified hypoparathyroidism type (HCC) Fatty liver Other chronic nonalcoholic liver disease Stage 3a chronic kidney disease (HCC) Situational anxiety Other anxiety states documented in this encounter [facility] for referral (narrative)* Diagnostic Procedure Only (Routine) - Pending Review Specialty Diagnoses / Procedures Referred By Anni t Referred To Contact US IMAGING Diagnoses Swelling of upper arm Procedures US DVT UPPER LT DUP-SCAN XTR VEINS UNILATERAL/LIMITED STUDY Erich Hawkins APRN.CNP [address] [place] [address] [facility] Referral ID Status Reason Start Date Expiration Date Visits Requested Visits Authorized [id number] Pending Review Auto-Generat ed Referral 09/18/2021 10/18/2022 1 1 [facility] for referral (narrative)* Diagnostic Procedure Only (Routine) - Pending Review Specialty Diagnoses / Procedures Referred By Anni t Referred To Contact [facility] IMAGING Diagnoses Encounter for screening mammogram for breast cancer Procedures SARAH SCREENING SCREENING MAMMOGRAPHY BI 2-VIEW BREAST INC Brendon Mcclendon DO [address] [place] [address] [facility] [address] [place] [address] Referral ID Status Reason Start Date Expiration Date Visits Requested Visits Authorized [id number] Pending Review Auto-Generat ed Referral 2 04/25/2023 1 1 [facility] for referral (narrative)* Diagnostic Procedure Only (Routine) - Pending Review Specialty Diagnoses / Procedures Referred By Anni t Referred To Contact MOLECULAR & FUNCTIONAL IMAGING Diagnoses Calculus of gallbladder without cholecystitis without obstruction Procedures NM HEPATOBILIARY W EF AND/OR RX HEPATOBIL SYST IMAG INC GB W/PHARMA INTERVENJ Brendon Blakely, DO [address] [place] [address] Molecular & Functional Imaging [address] [place] [address] Referral ID Status Reason Start Date Expiration Date Visits Requested Visits Authorized [id number] Pending Review Auto-Generat ed Referral 12/09/2022 01/08/2024 1 1 * Diagnostic Procedure Only (Routine) - Pending Review Specialty Diagnoses / Procedures Referred By Contac t Referred To Contact US IMAGING Diagnoses Fatty liver Procedures US ELASTOGRAPHY LIVER ULTRASOUND ELASTOGRAPHY PARENCHYMA Brendon Blakely DO [address] [place] [address] Us Imaging Referral ID Status Reason Start Date Expiration Date Visits Requested Visits Authorized [id number] Pending Review Auto-Generat ed Referral 12/09/2022 01/08/2024 1 1 * Diagnostic Procedure Only (Routine) - Pending Review Specialty Diagnoses / Procedures Referred By Contac t Referred To Contact US IMAGING Diagnoses Fatty liver Procedures US ABD RIGHT UPPER QUADRANT US ABDOMINAL REAL TIME W/IMAGE LIMITED Brendon Blakely DO [address] [place] [address] Us Imaging Referral ID Status Reason Start Date Expiration Date Visits Requested Visits Authorized [id number] Pending Review Auto-Generat ed Referral 12/09/2022 01/08/2024 1 1 [facility] Summary Purpose Family History No Family History Records FoundNo Family History Records Found Advance Directives No Advanced Directives Records FoundNo Advanced Directives Records Found Reason for Referral Specialty Diagnoses / Procedures Referred By Contac t Referred To Contact Dermatology Diagnoses Scalp psoriasis Procedures CONSULT TO DERMATOLOGY Erich Rizzo APRN.MANAGER SOFTWARE DEVELOPMENT [address] [place] [address] Referral ID Status Reason Start Date Expiration Date Visits Requested Visits Authorized [id number] Ref Not Required PCP Requested Referral 01/15/2023 01/15/2024 1 1 Additional Source Comments INFORMATION SOURCE (unrecogn ized section and content) DATE CREATED AUTHOR AUTHOR'S CUCO ATION 03/18/2023 [facility] Source Comments (unrecognize d section and content) In the event this informatio n is protected by the Federal Confidentiality of Alcohol and Drug Abuse Patient Records regulations: The Federal rules restrict any use of the information to criminally investigate or prosecute any alcohol or drug abuse patient.[facility] the event this information is protected by the Federal Confidentiality of Alcohol and Drug Abuse Patient Records regulations: The Federal rules restrict any use of the information to criminally investigate or prosecute any alcohol or drug abuse patient.[facility] the event this information is protected by the Federal Confidentiality of Alcohol and Drug Abuse Patient Records regulations: The Federal rules restrict any use of the information to criminally investigate or prosecute any alcohol or drug abuse patient.[facility] the event this information is protected by the Federal Confidentiality of Alcohol and Drug Abuse Patient Records regulations: The Federal rules restrict any use of the information to criminally investigate or prosecute any alcohol or drug abuse patient.[facility] the event this information is protected by the Federal Confidentiality of Alcohol and Drug Abuse Patient Records regulations: The Federal rules restrict any use of the information to criminally investigate or prosecute any alcohol or drug abuse patient.[facility] the event this information is protected by the Federal Confidentiality of Alcohol and Drug Abuse Patient Records regulations: The Federal rules restrict any use of the information to criminally investigate or prosecute any alcohol or drug abuse patient.[facility] the event this information is protected by the Federal Confidentiality of Alcohol and Drug Abuse Patient Records regulations: The Federal rules restrict any use of the information to criminally investigate or prosecute any alcohol or drug abuse patient.[facility] the event this information is protected by the Federal Confidentiality of Alcohol and Drug Abuse Patient Records regulations: The Federal rules restrict any use of the information to criminally investigate or prosecute any alcohol or drug abuse patient.[facility] the event this information is protected by the Federal Confidentiality of Alcohol and Drug Abuse Patient Records regulations: The Federal rules restrict any use of the information to criminally investigate or prosecute any alcohol or drug abuse patient.[facility] HospitalIn the event this information is protected by the Federal Confidentiality of Alcohol and Drug Abuse Patient Records regulations: The Federal rules restrict any use of the information to criminally investigate or prosecute any alcohol or drug abuse patient.[facility] the event this information is protected by the Federal Confidentiality of Alcohol and Drug Abuse Patient Records regulations: The Federal rules restrict any use of the information to criminally investigate or prosecute any alcohol or drug abuse patient.[facility] HospitalIn the event this information is protected by the Federal Confidentiality of Alcohol and Drug Abuse Patient Records regulations: The Federal rules restrict any use of the information to criminally investigate or prosecute any alcohol or drug abuse patient.[facility] HospitalIn the event this information is protected by the Federal Confidentiality of Alcohol and Drug Abuse Patient Records regulations: The Federal rules restrict any use of the information to criminally investigate or prosecute any alcohol or drug abuse patient.[facility] HospitalIn the event this information is protected by the Federal Confidentiality of Alcohol and Drug Abuse Patient Records regulations: The Federal rules restrict any use of the information to criminally investigate or prosecute any alcohol or drug abuse patient.[facility] HospitalIn the event this information is protected by the Federal Confidentiality of Alcohol and Drug Abuse Patient Records regulations: The Federal rules restrict any use of the information to criminally investigate or prosecute any alcohol or drug abuse patient.[facility] HospitalIn the event this information is protected by the Federal Confidentiality of Alcohol and Drug Abuse Patient Records regulations: The Federal rules restrict any use of the information to criminally investigate or prosecute any alcohol or drug abuse patient.[facility] HospitalIn the event this information is protected by the Federal Confidentiality of Alcohol and Drug Abuse Patient Records regulations: The Federal rules restrict any use of the information to criminally investigate or prosecute any alcohol or drug abuse patient.[facility] HospitalIn the event this information is protected by the Federal Confidentiality of Alcohol and Drug Abuse Patient Records regulations: The Federal rules restrict any use of the information to criminally investigate or prosecute any alcohol or drug abuse patient.[facility] HospitalIn the event this information is protected by the Federal Confidentiality of Alcohol and Drug Abuse Patient Records regulations: The Federal rules restrict any use of the information to criminally investigate or prosecute any alcohol or drug abuse patient.[facility] HospitalIn the event this information is protected by the Federal Confidentiality of Alcohol and Drug Abuse Patient Records regulations: The Federal rules restrict any use of the information to criminally investigate or prosecute any alcohol or drug abuse patient.[facility] the event this information is protected by the Federal Confidentiality of Alcohol and Drug Abuse Patient Records regulations: The Federal rules restrict any use of the information to criminally investigate or prosecute any alcohol or drug abuse patient.[facility] Hospital[facility] the event this information is protected by the Federal Confidentiality of Alcohol and Drug Abuse Patient Records regulations: The Federal rules restrict any use of the information to criminally investigate or prosecute any alcohol or drug abuse patient.[facility] HospitalIn the event this information is protected by the Federal Confidentiality of Alcohol and Drug Abuse Patient Records regulations: The Federal rules restrict any use of the information to criminally investigate or prosecute any alcohol or drug abuse patient.[facility] HospitalIn the event this information is protected by the Federal Confidentiality of Alcohol and Drug Abuse Patient Records regulations: The Federal rules restrict any use of the information to criminally investigate or prosecute any alcohol or drug abuse patient.[facility] HospitalIn the event this information is protected by the Federal Confidentiality of Alcohol and Drug Abuse Patient Records regulations: The Federal rules restrict any use of the information to criminally investigate or prosecute any alcohol or drug abuse patient.[facility] HospitalIn the event this information is protected by the Federal Confidentiality of Alcohol and Drug Abuse Patient Records regulations: The Federal rules restrict any use of the information to criminally investigate or prosecute any alcohol or drug abuse patient.[facility] HospitalIn the event this information is protected by the Federal Confidentiality of Alcohol and Drug Abuse Patient Records regulations: The Federal rules restrict any use of the information to criminally investigate or prosecute any alcohol or drug abuse patient.[facility] HospitalIn the event this information is protected by the Federal Confidentiality of Alcohol and Drug Abuse Patient Records regulations: The Federal rules restrict any use of the information to criminally investigate or prosecute any alcohol or drug abuse patient.[facility] HospitalIn the event this information is protected by the Federal Confidentiality of Alcohol and Drug Abuse Patient Records regulations: The Federal rules restrict any use of the information to criminally investigate or prosecute any alcohol or drug abuse patient.[facility] Reason for Visit (unrecogniz ed section [...] Care Teams (unrecognized sec tion and content) Bolt Sawyer Relationship Specialty Start Date End Date Brendon Blakely, DO [address] [place] [address] PCP - General Family Practice 12/28/12 Bolt Sawyer Relationship Specialty Start Date End Date Brendon Blakely DO [address] [place] [address] PCP - General Family Practice 12/28/12 Bolt Sawyer Relationship Specialty Start Date End Date Brendon Blakely DO [address] [place] [address] PCP - General Family Practice 12/28/12 Bolt Sawyer Relationship Specialty Start Date End Date Brendon Blakely DO [address] [place] [address] PCP - General Family Practice 12/28/12 Bolt Sawyer Relationship Specialty Start Date End Date Brendon Blakely DO [address] [place] [address] PCP - General Family Practice 12/28/12 Bolt Sawyer Relationship Specialty Start Date End Date Brendon Blakely, DO [address] [place] [address] PCP - General Family Practice 12/28/12 Bolt Sawyer Relationship Specialty Start Date End Date Brendon Blakely DO [address] [place] [address] PCP - General Family Practice 12/28/12 Bolt Sawyer Relationship Specialty Start Date End Date Brendon Blakely, DO [address] [place] [address] PCP - General Family Practice 12/28/12 Bolt Sawyer Relationship Specialty Start Date End Date Brendon Blakely, DO [address] [place] [address] PCP - General Family Medicine 12/28/12 Bolt Sawyer Relationship Specialty Start Date End Date Brendon Blakely, DO [address] [place] [address] PCP - General Family Medicine 12/28/12 Bolt Sawyer Relationship Specialty Start Date End Date Brendon Blakely, DO [address] [place] [address] PCP - General Family Medicine 12/28/12 Bolt Sawyer Relationship Specialty Start Date End Date Brendon Blakely, DO [address] [place] [address] PCP - General Family Medicine 12/28/12 Bolt Sawyer Relationship Specialty Start Date End Date Brendon Blakely, DO [address] [place] [address] PCP - General Family Medicine 12/28/12 Bolt Sawyer Relationship Specialty Start Date End Date Brendon Blakely, DO [address] [place] [address] PCP - General Family Medicine 12/28/12 Bolt Sawyer Relationship Specialty Start Date End Date Brendon Blakely, DO [address] [place] [address] PCP - General Family Medicine 12/28/12 Bolt Sawyer Relationship Specialty Start Date End Date Brendon Blakely, DO [address] [place] [address] PCP - General Family Medicine 12/28/12 Bolt Sawyer Relationship Specialty Start Date End Date Brendon Blakely, DO [address] [facility] [place] [address] PCP - General Family Medicine 12/28/12 Bolt Sawyer Relationship Specialty Start Date End Date Brendon Blakely DO [address] [place] [place] [address] PCP - General Family Medicine 12/28/12 Bolt Sawyer Relationship Specialty Start Date End Date Brendon Blakely DO [address] [place] [address] PCP - General Family Medicine 12/28/12 Bolt Sawyer Relationship Specialty Start Date End Date Brendon Blakely DO [address] [place] [address] PCP - General Family Medicine 12/28/12 Bolt Sawyer Relationship Specialty Start Date End Date Brendon Blakely DO [address] [facility] [place] [address] PCP - General Family Medicine 12/28/12 Bolt Sawyer Relationship Specialty Start Date End Date Brendon Blakely DO [address] [place] [address] PCP - General Family Medicine 12/28/12 FOR [...] BE BASED ON THE PRIMARY CLINICAL RECORDS. [employer] [facility]. provides no warranty or guarantee of the accuracy or completeness of information in this document.
[2023-06-29 10:22] LABS: Anion Gap 6 (5-15); BUN 30 mg/dL (7-18); BUN/Creat Ratio 15.2 RATIO (10-20); Calcium,Total 8.1 mg/dL (8.5-10.1); Chloride 108 mmol/L (98-107); Creatinine, Serum 1.97 mg/dL (0.55-1.02); EST Glomerular Filtration Rate 28 mL/min (>60); Est Glom Filt Rate - Afr Amer 34 mL/min (>60); Glucose 156 mg/dL (74-106); Potassium 3.8 mmol/L (3.5-5.1); Sodium Level 140 mmol/L (136-145)
== END | disposition home or self-care (01) ==
LOC: LAB 08:53
PROVIDERS: PCP Student in an Organized Health Care Education/Training Program; Referring Provider Internal Medicine Nephrology; Visit Provider Internal Medicine Nephrology
DX: I10 Essential (primary) hypertension (principal)
CPT/HCPCS: 36415; 80048

== ENCOUNTER → 2023-07-10 | Outpatient (CLI) | payer OTHER, SELFPAY ==
[2023-07-10 11:03] LABS: Anion Gap 4 (5-15); BUN 27 mg/dL (7-18); BUN/Creat Ratio 16.8 RATIO (10-20); Calcium,Total 9.4 mg/dL (8.5-10.1); Chloride 103 mmol/L (98-107); Creatinine, Serum 1.61 mg/dL (0.55-1.02); EST Glomerular Filtration Rate 36 mL/min (>60); Est Glom Filt Rate - Afr Amer 43 mL/min (>60); Glucose 188 mg/dL (74-106); Sodium Level 139 mmol/L (136-145)
== END | disposition home or self-care (01) ==
LOC: LAB 09:44
PROVIDERS: PCP Student in an Organized Health Care Education/Training Program; Referring Provider Internal Medicine Endocrinology, Diabetes & Metabolism; Visit Provider Internal Medicine Endocrinology, Diabetes & Metabolism
DX: E20.9 Hypoparathyroidism, unspecified (principal)
CPT/HCPCS: 36415; 80048

== ENCOUNTER → 2023-07-17 | Outpatient (CLI) | payer OTHER, SELFPAY ==
[2023-07-17 14:02] LABS: BNP,B-Type NATRIURETIC PEPTIDE 36.9 pg/mL (0-100)
[2023-07-17 14:09] LABS: ALB/GLOB Ratio 0.9 RATIO (0.9-2.4); AST(SGOT) 22 U/L (15-37); Alanine Aminotransfer ALT/SGPT 26 U/L (13-56); Albumin, Serum 3.8 g/dL (3.2-5.0); Alkaline Phosphatase 63 U/L (45-117); Anion Gap 4 (5-15); BUN 26 mg/dL (7-18); BUN/Creat Ratio 16.5 RATIO (10-20); Calcium,Total 9.4 mg/dL (8.5-10.1); Chloride 104 mmol/L (98-107); Creatinine, Serum 1.58 mg/dL (0.55-1.02); EST Glomerular Filtration Rate 37 mL/min (>60); Est Glom Filt Rate - Afr Amer 44 mL/min (>60); Globulin 4.3 g/dL (2.2-4.2); Glucose 99 mg/dL (74-106); Protein, Total 8.1 g/dL (6.4-8.2); Sodium Level 137 mmol/L (136-145)
--- NOTE | 2023-07-17 14:25 | RAD_ITS ---
STUDY: X-RAY - CERVICAL SPINE REASON FOR EXAM: Female, 52 years old. HYPERTENSION DECREASED GFR WEIGHT GAIN TECHNIQUE: 6 view(s) of the cervical spine were obtained including oblique views.. COMPARISON: Comparison is made with prior study dated January 25, 2021. FINDINGS: Normal anterior atlantoaxial articulation. Normal odontoid process. There is straightening of the normal cervical lordosis. Anterior spondylosis at the C5-C6 and C6-C7 levels with the marked degree of disc space narrowing. Mild bilateral C5-C6 no vertebral foramina stenosis. The soft tissue structures are unremarkable. RAD/Cerv Spine 4 or 5 Views IMPRESSION: Straightening of the normal cervical lordosis. This space narrowing and spondylosis with narrowing of the intervertebral foramen at the C5-C6 level. Electronically Signed: Alan Duarte MD at 15:01 EDT ,
--- OUTSIDE RECORDS SUMMARY | 2023-07-17 17:36 | XMS RPT_ITS | CCD ---
Author Name Unknown Address [address] [place] [address] Organization [facility] Care Team Providers Care Glass Cutter Hand Name Role Phone Brendon Blakely DO Primary Care Provider [phone] ERICH RIZZO Attending Unavailable BRENDON BLAKELY Primary [...] HCL] Drug Allergy 7 Other: See Comments [facility] Work Phone: (20 sources) Latex; Translations: [LATEX] Drug Allergy 4 Hives [facility] (7 sources) Penicillins; Translations: [PENICILLINS] Drug Intolerance 3 Shortness of Breath [facility] Work Phone: (20 sources) predniSONE; Translations: [PREDNISONE] Drug Allergy 6 GI Upset, Other: See Comments [facility] Work Phone: (20 sources) Penicillins Drug Intolerance 3 Shortness of Breath [facility] Work Phone: Medications Completed/Discontinued Medications Medication Drug [...] 96.4 [degF] Brendon Blakely DO Work Phone: [facility] 03-17-2023 09:56-0500 Body weight 123.38 kg Brendon Blakely DO Work Phone: [facility] 03-17-2023 09:56-0500 Diastolic blood pressure 90 mm[Hg] Brendon Blakely DO Work Phone: [facility] 03-17-2023 09:56-0500 Heart rate 88 /min Brendon Blakely DO Work Phone: [facility] 03-17-2023 09:56-0500 Respiratory rate 16 /min Brendon Blakely DO Work Phone: [facility] 03-17-2023 09:56-0500 Systolic blood pressure 146 mm[Hg] Brendon Blakely DO Work Phone: [facility] 12-09-2022 14:15-0400 Body height 166 cm Brendon Blakely DO Work Phone: [facility] 12-09-2022 14:15-0400 Body temperature 98.71 [degF] Brendon Blakely DO Work Phone: [facility] 12-09-2022 14:15-0400 Body weight 127.01 kg Brendon Blakely DO Work Phone: [facility] 12-09-2022 14:15-0400 Diastolic blood pressure 94 mm[Hg] Brendon Blakely DO Work Phone: [facility] 12-09-2022 14:15-0400 Heart rate 80 /min Brendon Blakely DO Work Phone: [facility] 12-09-2022 14:15-0400 Respiratory rate 20 /min Brendon Blakely DO Work Phone: [facility] 12-09-2022 14:15-0400 Systolic blood pressure 146 mm[Hg] Brendon Blakely DO Work Phone: [facility] 10-03-2022 15:18-0400 Body height 166.4 cm Teri Wasserman MD Work Phone: [facility] 10-03-2022 15:18-0400 Body weight 126.06 kg Teri Wasserman MD Work Phone: [facility] 10-03-2022 15:18-0400 Diastolic blood pressure 84 mm[Hg] Teri Wasserman MD Work Phone: [facility] 10-03-2022 15:18-0400 Systolic blood pressure 132 mm[Hg] Teri Wasserman MD Work Phone: [facility] 05-08-2022 12:35-0500 Body weight 125.28 kg Erich Rizzo MILLER WOOD FLOUR.BURLAP SPREADER Work Phone: [facility] 05-08-2022 12:35-0500 Diastolic blood pressure 78 mm[Hg] Erich Rizzo MILLER WOOD FLOUR.BURLAP SPREADER Work Phone: [facility] 05-08-2022 12:35-0500 Heart rate 60 /min Erich Rizzo MILLER WOOD FLOUR.BURLAP SPREADER Work Phone: [facility] 05-08-2022 12:35-0500 Respiratory rate 16 /min Erich Rizzo MILLER WOOD FLOUR.BURLAP SPREADER Work Phone: [facility] 05-08-2022 12:35-0500 Systolic blood pressure 138 mm[Hg] Erich Rizzo MILLER WOOD FLOUR.BURLAP SPREADER Work Phone: [facility] 10-25-2021 14:08-0400 Body weight 122.29 kg Erich Zurawick MILLER WOOD FLOUR.BURLAP SPREADER Work Phone: [facility] 10-25-2021 14:08-0400 Diastolic blood pressure 64 mm[Hg] Erich Zurawick MILLER WOOD FLOUR.BURLAP SPREADER Work Phone: [facility] 10-25-2021 14:08-0400 Heart rate 72 /min Erich Zurawick MILLER WOOD FLOUR.BURLAP SPREADER Work Phone: [facility] 10-25-2021 14:08-0400 Respiratory rate 16 /min Erich Zurawick MILLER WOOD FLOUR.BURLAP SPREADER Work Phone: [facility] 10-25-2021 14:08-0400 Systolic blood pressure 138 mm[Hg] Erich Zurawick MILLER WOOD FLOUR.BURLAP SPREADER Work Phone: [facility] 09-18-2021 17:02-0400 Body weight 122.96 kg Erich Zurawick MILLER WOOD FLOUR.BURLAP SPREADER Work Phone: [facility] 09-18-2021 17:02-0400 Diastolic blood pressure 90 mm[Hg] Erich Zurawick MILLER WOOD FLOUR.BURLAP SPREADER Work Phone: [facility] 09-18-2021 17:02-0400 Heart rate 64 /min Erich Zurawick MILLER WOOD FLOUR.BURLAP SPREADER Work Phone: [facility] 09-18-2021 17:02-0400 Respiratory rate 18 /min Erich Zurawick MILLER WOOD FLOUR.BURLAP SPREADER Work Phone: [facility] 09-18-2021 17:02-0400 Systolic blood pressure 142 mm[Hg] Erich Zurawick MILLER WOOD FLOUR.BURLAP SPREADER Work Phone: [facility] Encounters Encounter Date Encounter Type Care Provider Facility Start: 03-17-2023 End: 03-17-2023 ambulatory BRENDON BLAKELY Facility:[facility] Start: 03-17-2023 End: 03-17-2023 Patient encounter procedure Brendon Blakely DO Work Phone: [facility] Procedures Date Procedure Procedure Detail Performing Clinician Start: 09-23-2022 Mammography Teri hines MD Work Phone: Start: 02-06-2021 Mammography Erich Ha hughes MILLER WOOD FLOUR.BURLAP SPREADER Work Phone: Start: 10-03-2019 Colonoscopy Erichmarkel hughes MILLER WOOD FLOUR.BURLAP SPREADER Work Phone: Start: 10-12-2018 Lipid 1996 panel - S nan or Plasma Brendon Blakely DO Work Phone: Plan of Treatment Date Care Activity Detail Author Start: 10-04-2027 HPV TESTING HPV TESTING [facility] Start: 10-04-2027 PAP TESTING PAP TESTING [facility] Start: 03-17-2024 Annual PCP Team Nurse Emergency gerald Disease Visit Annual PCP Team Chronic Disease Visit [facility] Start: 03-17-2024 Covid-19 Vaccine ( season) Covid-19 Vaccine ( season) [facility] Immunizations Immunization Date Immunization Notes Care Provider Marino day 02-19-2022 influenza virus vacc ine, unspecified formulation Brendon Blakely DO Work Phone: [facility] 01-12-2013 tetanus toxoid, redu angela diphtheria toxoid, and acellular pertussis vaccine, adsorbed Erich Zurawick MILLER WOOD FLOUR.BURLAP SPREADER Work Phone: [facility] Payers Date Payer Category Payer Private Health Insurance [id number] 2018 Private Health Insurance [employer] PPO [id number] 2018-Present [phone] [address] [place] [address] O [id number] 2018 Private Health Insurance [id number] 2018 Private Health Insurance [id number] Social History Date Type Detail Facility Start: 12-28-2012 End: 10-03-2022 Tobacco smoking status NHIS Ex-smoker [facility] Work Phone: End: 05-04-2002 History of tobacco use Current smoker [facility] Work Phone: Start: 12-28-2012 End: 09-15-2022 Cigarettes smoked current (pack per day) - Reported 0.5 [facility] Start: 12-28-2012 End: 10-03-2022 Tobacco use and exposure Smokeless tobacco non-user [facility] Work Phone: Start: 01-23-2021 End: 03-17-2023 Alcohol intake Current non-drinker of alcohol (finding) [facility] Start: 07-13-2020 End: 05-08-2022 History SDOH Alcohol Frequency 1 [facility] Start: 07-13-2020 End: 05-08-2022 History SDOH Social Connections Phone 2 [facility] Start: 07-13-2020 End: 05-08-2022 History SDOH Social Connections Living 5 [facility] Start: 07-13-2020 End: 05-08-2022 History SDOH Physical Activity DPW 0 [facility] Start: 07-13-2020 End: 05-08-2022 History SDOH Financial 4 [facility] Start: 06-01-2019 Education 21 [facility] Start: 1970 Sex Assigned At Not on file C [facility] Start: 09-18-2021 History SDOH Alcohol Std Drinks 98 [facility] Start: 09-18-2021 History SDOH Financial 3 [facility] Start: 09-08-2021 End: 10-25-2021 Exposure to SARS-CoV-2 (event) Not sure [facility] End: 05-04-2002 History of tobacco use Cigarette Smoker [facility] Work Phone: Start: 05-08-2022 End: 09-15-2022 Social connection and isolation panel [facility] Do you belong to any clubs or organizations such as bahai groups, unions, fraternal or athletic groups, or school groups? No [facility] Are you now , , , , never or living with a partner? [facility] How often to you hav e a drink containing alcohol? Never [facility] How many standard dr inks containing alcohol do you have on a typical day? Patient does not drink [facility] How hard is it for y ou to pay for the very basics like food, housing, medical care, and heating Not very hard [facility] Do you feel stress - tense, restless, nervous, or anxious, or unable to sleep at night because your mind is troubled all the time - these days [OSQ] Rather much [facility] (I/We) worried wheedgar er (my/our) food would run out before (I/we) got money to buy more. Never true [facility] Clinical Notes 04-22-2017 to 03-17-2023 Brendon Blakely DO - 03/17/2023 11:55 AM ESTTelephone Encounter - Irene Pisano Ma - 02/02/2023 11:37 AM EDTTelephone Encounter - Irene Pisano Ma - 01/15/2023 3:35 PM EDT Note Date & Type Note Facility 03-17-2023 Note HNO ID: [id number] Author: Brendon Blakely DO Service: ? Author Type: Physician Type: Progress Notes Filed: 03/17/2023 12:02 PM Note Text: CC: Danni Long is a 52 year old female who presents to the office for follow up HPI: At last OFFICE VISIT in Dec 2022 Mood, managed currently by Dr. Bellamy Psychiatrist at [facility]. She has been changed to Pristiq medication [...] high CRP levels. Otherwise normal. Hasn't seen System Safety Engineer yet. Hyperparathyroidism, CKD, sees Dr. Amaya for [...] Has follow up with DR. Amaya for Wall Cleaner in Apr. IFG, a1c in July 2022 was at 5.8%. has seen Supervisor Plate Forming Dr. Benítez for this last lab check Mood, seeing Psychiatrist Dr. Bellamy, feels it is stable. Does feel like the pristique medication is causing her to have some constipation/bloating but she feels this is managed and mild. Scalp psoriasis, stable. Recently had kenalog injection due to flare up per Dr. David Zelaya traveling representative- doesn't feel that this benefitted her much. [...] daily at bedtime. Per Psych- Keyur Dubon, BURLAP SPREADER ketoconazole (NIZORAL) 2 % cream Apply 1 [...] Breath Prednisone GI Upset, Other: See Comments Jber jittery Wellbutrin [Bupropi* Other: See Comments sweating [...] CV: RRR, n (more content not included)... [facility] 03-17-2023 History of Present illness Narrative CC: Danni Long is a 52 year old female who presents to the office for follow up HPI: At last OFFICE VISIT in Dec 2022 Mood, managed currently by Dr. Bellamy Psychiatrist at [facility]. She has been changed to Pristiq medication [...] high CRP levels. Otherwise normal. Hasn't seen System Safety Engineer yet. Hyperparathyroidism, CKD, sees Dr. Amaya for [...] Has follow up with DR. Amaya for Wall Cleaner in Apr. IFG, a1c in July 2022 was at 5.8%. has seen Supervisor Plate Forming Dr. Benítez for this last lab check Mood, seeing Psychiatrist Dr. Bellamy, feels it is stable. Does feel like the pristique medication is causing her to have some constipation/bloating but she feels this is managed and mild. Scalp psoriasis, stable. Recently had kenalog injection due to flare up per Dr. David Zelaya traveling representative- doesn't feel that this benefitted her much. [...] Breath Prednisone GI Upset, Other: See Comments Jber jittery Wellbutrin [Bupropi* Other: See Comments sweating [...] plan. See patient instructions. Brendon Blakely DO [address] [place] [address] documented in this encounter [facility] 02-02-2023 Miscellaneous Notes Last office visit: 12/09/22 F/u scheduled: 03/17/23 Irene Pisano Ma documented in this encounter [facility] 01-15-2023 Miscellaneous Notes Referral, OV, Demo, med list, faxed to Dr. David Zelaya's office. Pt notified via brotipshart. Irene Pisano Ma Consult placed. Please fax. Please also include office note from 12/09/[address] Blakely. Let pt know once completed. Thank you, Erich Rizzo APRN.BURLAP SPREADER documented in this encounter [facility] 12-10-2022 Note HNO ID: [id number] Author: Brendon Blakely, DO Service: ? Author [...] and panic symptoms, has been seeing Psychiatrist RELAY RECORD CLERK Jorden Dbuon at [facility] in the past. Her RELAY RECORD CLERK moved to different location so now has recently Had medication change from Zoloft to Pristiq in Jun by Dr. Bellamy Psychiatrist. Doesn't know if this is affecting her symptoms above. Currently Mood, managed currently by Dr. Bellamy Psychiatrist at [facility]. She has been changed to Pristiq medication [...] high CRP levels. Otherwise normal. Hasn't seen System Safety Engineer yet. Hyperparathyroidism, CKD, sees Dr. Amaya for [...] Breath Prednisone GI Upset, Other: See Comments Jber jittery Wellbutrin [Bupropi* Other: See Comments sweating ROS: See HPI PE: 12/09/22 1415 BP: 146/94 Pulse: 80 Resp: 20 Temp: 37.1 ?C (98.7 ?F) TempSrc: Left Tympanic Weight: 127 (more content not included)... [facility] 12-10-2022 History of Present illness [...] and panic symptoms, has been seeing Psychiatrist RELAY RECORD CLERK Jorden Dubon at [facility] in the past. Her RELAY RECORD CLERK moved to different location so now has recently Had medication change from Zoloft to Pristiq in Jun by Dr. Bellamy Psychiatrist. Doesn't know if this is affecting her symptoms above. Currently Mood, managed currently by Dr. Bellamy Psychiatrist at [facility]. She has been changed to Pristiq medication [...] high CRP levels. Otherwise normal. Hasn't seen System Safety Engineer yet. Hyperparathyroidism, CKD, sees Dr. Amaya for [...] daily at bedtime. Per Psych- Keyur Dubon, BURLAP SPREADER ketoconazole (NIZORAL) 2 % cream Apply 1 [...] Breath Prednisone GI Upset, Other: See Comments Jber jittery Wellbutrin [Bupropi* Other: See Comments sweating [...] diet of 1000 mg/day for under 50, 2777-6008 mg/day for 50+ - Discussed need and [...] ICD10: M79.10 Mildly high CRP, consider seeing System Safety Engineer if worsening, start on only prn use [...] ICD10: E20.9 - f/u with Michael Benítez Supervisor Plate Forming 6. Fatty liver - ICD9: 571.8, ICD10: [...] L40.9 - rx as below, consider seeing Show Card Letterer if worsens - CLOBETASOL 0.05 % SCALP SOLUTION Brendon Blakely DO To ER if develops chest pain, shortness of breath, or severe worsening of symptoms. Discussed risks, benefits, alternatives, and potential side effects of medications. Patient expressed understanding and agreed with the plan. Brendon Blakely DO [address] [place] [address] documented in this encounter [facility] 10-27-2022 Miscellaneous Notes Daniel--09/15/22 Nov--12/09/22 Last refill--08/04/22 90 with 0 refills Last labs--09/08/22 documented in this encounter [facility] 10-03-2022 Note HNO ID: [id number] Author: Teri Wasserman MD Service: ? Author Type: Physician Type: Progress Notes Filed: 10/03/2022 3:49 PM Note Text: Seismic Interpreter offered: Patient declines. Danni is a 51 [...] L2 SAB0 IAB0 Ectopic0 Multiple0 Live Births0 Business Services Analyst History LMP: 08/09/2022, Ablation Age at Menarche: Age at First : Age at Menopause: Business Services Analyst History Comments: Sexual Activity: Not Currently; No [...] a sebaceous cyst, normal Bartholin's glands, urethra, [place]'s glands, no vulvar lesions, no cervical lesions, good vaginal support, physiologic discharge present, normal appearing perineal body and perianal region BIMANUAL: uterus normal size, shape and consistency, no adnexal masses, and non-tender RECTOVAGINAL: deferred. NEURO: alert and oriented x3,exam grossly non-focal EXTREMITIES: normal ASSESSMENT/PLAN: 1) Health maintenance: Pap done with HPV. Mammogram up to date (gets at [facility]) Nutrition, exercise and routine health maintenance exams [...] AND call if enlarges Teri Wasserman MD [facility] 10-03-2022 Instructions Teri Wasserman MD [...] scratching at night. documented in this encounter [facility] 10-03-2022 History of Present illness Narrative Seismic Interpreter offered: Patient declines. Danni is a 51 [...] L2 SAB0 IAB0 Ectopic0 Multiple0 Live Births0 Business Services Analyst History LMP: 08/09/2022, Ablation Age at Menarche: Age at First : Age at Menopause: Business Services Analyst History Comments: Sexual Activity: Not Currently; No [...] a sebaceous cyst, normal Bartholin's glands, urethra, [place]'s glands, no vulvar lesions, no cervical lesions, good vaginal support, physiologic discharge present, normal appearing perineal body and perianal region BIMANUAL: uterus normal size, shape and consistency, no adnexal masses, and non-tender RECTOVAGINAL: deferred. NEURO: alert and oriented x3,exam grossly non-focal EXTREMITIES: normal ASSESSMENT/PLAN: 1) Health maintenance: Pap done with HPV. Mammogram up to date (gets at [facility]) Nutrition, exercise and routine health maintenance exams [...] Teri Wasserman MD documented in this encounter [facility] 09-15-2022 Note HNO ID: [id number] Author: Brendon Blakely, DO Service: ? Author [...] and panic symptoms, has been seeing Psychiatrist RELAY RECORD CLERK Jorden Dubon at [facility] in the past. Her RELAY RECORD CLERK moved to different location so now has [...] daily at bedtime. Per Psych- Keyur Dubon, BURLAP SPREADER ketoconazole (NIZORAL) 2 % cream Apply 1 application to affected area daily before breakfast. hydrocortisone 2.5 % cream Apply 1 application to affected area daily at bedtime. Location: facial, avoid eyes/lips No current facility-administered medications for this visit. ALLERGIES Allergen Reactions Latex Hives Penicillins Shortness of Breath Prednisone GI Upset, Other: See Comments Jber jittery Wellbutrin [Bupropi* Other: See Comments sweating [...] BLD - URINALYSIS, WITH MICROSCOPIC - ANTI KAITE ID 2. Fatigue, unspecified type - ICD9: [...] alternatives, and p (more content not included)... [facility] 07-04-2022 Miscellaneous Notes Noted. Thank you, Erich Rizzo APRN.BURLAP SPREADER Pt called and is notified of providers results and instructions. Pt voices understanding. Faxed labs over to [facility] at [phone]. Pts A1C was 5.8 and PTH was 10. Mary Blair RN Left message for patient to return call Looks like rest of labs are scanned in chart. Abigail Orr Please call patient and let her know that I got lab work results back from [facility]. TSH is elevated at 5.25. I know patient follows with endocrinology -- please make pipeline technician aware of this. I know pt has hx of Acute kidney injury while in the hospital this past summer -- BUN and CR are slightly elevated. GFR is very slightly low at 59. I would like pt to increase fluids and repeat this lab work in 2-4 weeks to recheck this status. I know she does not need to follow with laborer shaft sinking anymore so I just want to double [...] check on this. Thank you, Erich Rizzo APRN.BURLAP SPREADER documented in this encounter [facility] 07-03-2022 Note HNO ID: [id number] Author: Amira Reyna LPN Service: ? Author Type: ? Type: Progress Notes Filed: 07/03/2022 12:20 PM Note Text: Please see ordered labs: Scan on 07/03/2022 10:17 AM by External Provider: Miscellaneous Lab Scan on 07/03/2022 10:37 AM by External Provider: Miscellaneous Lab Alla Reyna LPN [facility] 07-03-2022 History of Present illness Narrative Please see ordered labs: Scan on 07/03/2022 10:17 AM by External Provider: Miscellaneous Lab Scan on 07/03/2022 10:37 AM by External Provider: Miscellaneous Lab Alla Reyna LPN documented in this encounter [facility] 05-09-2022 Miscellaneous Notes Labs faxed to [facility] per pt request. Notified via BlackDuckt. Irene Pisano Ma documented in this encounter [facility] 05-08-2022 Note HNO ID: [id number] Author: Erich Hawkins APRN.FADI Service: ? Author [...] Scheduled to see psychiatrist this month at [place] where she works. Old psychiatrist left and [...] for this. Has been stable without concerns. Wall Cleaner said she does not need to come [...] Breath Prednisone GI Upset, Other: See Comments Jber jittery Wellbutrin [Bupropi* Other: See Comments sweating [...] daily at bedtime. Per Psych- Keyur Dubon, BURLAP SPREADER ketoconazole (NIZORAL) 2 % cream Apply 1 [...] well nourished.. Skin: (more content not included)... [facility] 05-08-2022 History of Present illness [...] Scheduled to see psychiatrist this month at [place] where she works. Old psychiatrist left and [...] for this. Has been stable without concerns. Wall Cleaner said she does not need to come [...] Breath Prednisone GI Upset, Other: See Comments Jber jittery Wellbutrin [Bupropi* Other: See Comments sweating [...] occur. Patient agreeable to treatment plan. Erich Hawkisn APRN.BURLAP SPREADER [address] [place] [address] documented in this encounter [facility] 05-07-2022 Miscellaneous Notes Called pt gave information [...] Anu Vanegas LPN documented in this encounter [facility] 04-10-2022 Miscellaneous Notes PDMP website checked and [...] Keira Treadwell LPN documented in this encounter [facility] 03-26-2022 Note Patient Outreach (IN TMMN) DANNI LONG ([id number]) 1970 F Date Time Provider Department 03/26/22 BRENDON BLAKELY During your visit today, we recorded the following information about you: Allergies As of Date: 03/26/2022 Noted Allergy Reaction LATEX 08/17/2013 4 - Hives PENICILLINS 12/28/2012 12 - Shortness of Breath PREDNISONE 03/19/2016 8 - GI Upset 14 - Other: See Comments Comments: Jber jittery WELLBUTRIN (BUPROPION HCL) 12/03/2016 14 - Other: See Comments Comments: sweating Date Reviewed: 10/25/2021 Reviewed by: Erich Hawkins APRN.BURLAP SPREADER - Fully Assessed Visit Diagnosis:Encounter for screening mammogram for breast cancer [Z12.31] Order(s):[facility] SCREENING [[id number]] Order #: [id number] FUTURE Prescriptions as of 03/31/2022 - clonazePAM [...] Encounter Status:Closed by IQRA, PRODUSER on 03/31/22 [facility] 03-05-2022 Miscellaneous Notes The following [...] Keira Treadwell LPN documented in this encounter [facility] 03-05-2022 Miscellaneous Notes [facility] and validated. All prescriptions have [...] Christie Petty LPN documented in this encounter [facility] 02-03-2022 Miscellaneous Notes DANIEL--10/25/21 NOV--NOT SCHEDULED LAST REFILL--11/06/21 90 WITH 0 REFILLS LAST LABS--01/24/22 documented in this encounter [facility] 01-30-2022 Miscellaneous Notes PDMP website checked and [...] Keira Treadwell LPN documented in this encounter [facility] 12-28-2021 Miscellaneous Notes The following approved medication requests have been transmitted electronically. Requested Prescriptions Signed Prescriptions Disp Refills clonazePAM (KLONOPIN) 0.5 mg tablet 30 tablet 0 Sig: Take 1 tablet by mouth once daily as needed for up to 30 days. Authorizing Provider: VIKTORIYA CHOE APRN.CNP [facility] website checked and validated. All prescriptions have [...] Keira Treadwell LPN documented in this encounter [facility] 11-25-2021 Miscellaneous Notes The following approved medication requests have been transmitted electronically. Signed Prescriptions Disp Refills clonazePAM (KLONOPIN) 0.5 mg tablet 30 tablet 0 Sig: Take 1 tablet by mouth once daily as needed for up to 30 days. WILLIAM Class: C-IV SUSY: No Authorizing Provider: VIKTORIYA CHOE APRN.BURLAP SPREADER PDMP website checked and validated. All prescriptions [...] Keira Treadwell LPN documented in this encounter [facility] 11-22-2021 Miscellaneous Notes Patient calls and notified [...] blood work results from Thursday done at [facility]. Kidney function continues to improve and is almost back within normal range. Lipid panel is elevated with an LDL of 161 and total cholesterol of 252. Please ask patient if she is taking the 10 mg Lipitor routinely. If so, I recommend increasing this dosage to 20 mg daily and repeat lipid panel in 3 months. Rx sent to [facility] if pt agreeable. May need to fax blood work to [facility] -- ask pt. The following approved medication requests have been transmitted electronically. Signed Prescriptions Disp Refills atorvastatin (LIPITOR) 20 mg tablet 90 tablet 0 Sig: Take 1 tablet by mouth once daily. For cholesterol. Authorizing Provider: ERICH HAWKINS APRN.CNP documented in this encounter [facility] 11-06-2021 Miscellaneous Notes Refilled in prior encounter. Erich Hawkins APRN.CNP The following approved medication requests have been transmitted electronically. Refused Prescriptions Disp Refills losartan (COZAAR) 100 mg tablet 90 tablet 0 Sig: Take 1 tablet by mouth once daily. SUSY: No Refused By: ERICH HAWKINS Reason for Refusal: Request already responded to by other means (for example, phone, fax) Erich Zurawick, [employer].BURLAP SPREADER daniel-- 10/25/21 Next-- Nothing scheduled Last refill-- 07/29/21 90 With 0 refills Last labs--10/25/21 documented in this encounter [facility] 11-06-2021 Miscellaneous Notes Pt called in and [...] Keira Treadwell LPN documented in this encounter [facility] 10-25-2021 Nurse Note All labs were faxed to [facility] as requested. documented in this encounter [facility] 10-25-2021 Instructions Erich Hawkins APRN.FADI - 10/25/2021 [...] to recheck cholesterol. documented in this encounter [facility] 10-25-2021 History of Present illness Narrative Chief Complaint Patient presents with: Results HPI Danni Long is a 51 year old female who presents here today for Above Complaints. Danni is an established patient of Dr. Dany DO and myself. Telephone encounter on 10/[address] [facility] ordered from Hospital Follow-up appointment. Blood work done on 09/23: BUN 23 Cr 1.65 GFR 35 Ca 7.4 --- following with pipeline technician Dr. Benítez for this d/t autoimmunne hypoparathyroidism. Chol 266 Triglycerides 296 LDL 167 HDL 40 TSH 4.32 -- endocrine also follows this. Improved kidney function from 09/19 as in chart under external labs. Today... Blood work results faxed over today from [facility] include: BUN 18 Cr 1.11 GFR 55 Ca 8.5 COVID + after recent ER visit which may be contributing to recent delay in healing of AYLA d/t body fighting numerous conditions. Discussed TSH levels and cholesterol levels from prior. Pt reports TSH level fluctuates often d/t parathyroid function. Supervisor Plate Forming is also following TSH levels. Does not [...] Breath Prednisone GI Upset, Other: See Comments Jber jittery Wellbutrin [Bupropi* Other: See Comments sweating [...] daily at bedtime. Per Psych- Keyur Dubon, BURLAP SPREADER ketoconazole (NIZORAL) 2 % cream Apply 1 [...] activity was identified. 10/25/2021 by Erich Hawkins APRN.BURLAP SPREADER 3. Panic attacks - ICD9: 300.01, ICD10: [...] to regimen. Faxed all lab results to [facility] to have completed. RTO as needed. Follow-up update in 2 weeks. Prescription instructions reviewed with patient as applicable. Potential red flag symptoms discussed with the patient. Reviewed appropriate action plan to take if red flag symptoms occur. Patient agreeable to treatment plan. I spent 55 minutes in the visit, with more than 50% of the total [id number] time of the visit in counseling / coordination of care. Erich Hawkins APRN.CNP [address] [place] [address] documented in this encounter [facility] 10-09-2021 Miscellaneous Notes The following approved medication requests have been transmitted electronically. Signed Prescriptions Disp Refills amLODIPine (NORVASC) 10 mg tablet 90 tablet 1 Sig: Take 1 tablet by mouth once daily. SUSY: No Erich Hawkins APRN.CNP Please see pt message Abigail Mares Ma documented in this encounter [facility] 09-18-2021 History of Present illness Narrative Chief [...] well managed with this dosage. Had recent [facility] hospital admission from 09/12/21-09/14/21 d/t abnormal calcium levels. Was having HTN, diarrhea, CP, and confusion. Dx of autoimmune hypoparathyroidism. Prior to admission had low Ca level and pipeline technician recently increased Ca supplement and calcitriol. Pt arrived to ER and found to be hypercalcemic (up to 14.5) and AYLA from blood work. Spent 2 night in hospital and discharged home on 09/14. Had follow-up appointment with [place] doctor post-hospital visit and is following closely with her pipeline technician, Dr. Benítez, q2 days via virtual visits. [...] Breath Prednisone GI Upset, Other: See Comments Jber jittery Wellbutrin [Bupropi* Other: See Comments sweating [...] Will order and fax blood work to [facility] as follow-up from hospital values. Continue to closely follow with pipeline technician and follow recommendations. - TSH BLD - [...] with more than 50% of the total [id number] time of the visit in counseling / coordination of care. Prescription instructions reviewed with patient as applicable. Potential red flag symptoms discussed with the patient. Reviewed appropriate action plan to take if red flag symptoms occur. Patient agreeable to treatment plan. Erich Hawkins APRN.BURLAP SPREADER [address] [place] [address] documented in this encounter [facility] 09-18-2021 Miscellaneous Notes Pt rescheduled with [place] today at 5pm OK per BRIANA Mares Ma documented in this encounter [facility] 08-14-2021 Miscellaneous Notes The following approved medication [...] Last labs-- 07/29/21 documented in this encounter [facility] documented as of this encounter (statuses as of 08/14/2021) [facility]12-[facility]2017 History of Past illness Narrative* Problem Noted Date Resolved Date Leg pain, bilateral 04/22/2017 11/23/2017 Iron deficiency anemia due to chronic blood loss 12/03/2016 11/23/2017 Menorrhagia with regular cycle 12/03/2016 0 11/23/2017 Abnormal uterine bleeding 08/17/20132017 Urge incontinence 08/17/2013 11/23/2017 Morbid obesity with BMI of 40.0-44.9, adult 08/2 11/201211/23/2017 Low back pain 12/28/2012 11/23/2017 documented as of this encounter (statuses as of 08/19/2021) [facility] History of Past illness Narrative* Problem Noted Date Resolved Date Leg pain, bilateral 04/22/2017 11/23/2017 Iron deficiency anemia due to chronic blood loss 12/03/2016 11/23/2017 Menorrhagia with regular cycle 12/03/2016 0 11/23/2017 Abnormal uterine bleeding 08/17/20132017 Urge incontinence 08/17/2013 11/23/2017 Morbid obesity with BMI of 40.0-44.9, adult 08/2 11/201211/23/2017 Low back pain 12/28/2012 11/23/2017 documented as of this encounter (statuses as of 09/18/2021) [facility] History of Past illness Narrative* Problem Noted Date Resolved Date Leg pain, bilateral 04/22/2017 11/23/2017 Iron deficiency anemia due to chronic blood loss 12/03/2016 11/23/2017 Menorrhagia with regular cycle 12/03/2016 0 11/23/2017 Abnormal uterine bleeding 08/17/20132017 Urge incontinence 08/17/2013 11/23/2017 Morbid obesity with BMI of 40.0-44.9, adult 08/2 11/201211/23/2017 Low back pain 12/28/2012 11/23/2017 documented as of this encounter (statuses as of 09/18/2021) [facility] History of Past illness Narrative* Problem Noted Date Resolved Date Leg pain, bilateral 04/22/2017 11/23/2017 Iron deficiency anemia due to chronic blood loss 12/03/2016 11/23/2017 Menorrhagia with regular cycle 12/03/2016 0 11/23/2017 Abnormal uterine bleeding 08/17/20132017 Urge incontinence 08/17/2013 11/23/2017 Morbid obesity with BMI of 40.0-44.9, adult 08/2 11/201211/23/2017 Low back pain 12/28/2012 11/23/2017 documented as of this encounter (statuses as of 10/09/2021) [facility] History of Past illness Narrative* Problem Noted Date Resolved Date Leg pain, bilateral 04/22/2017 11/23/2017 Iron deficiency anemia due to chronic blood loss 12/03/2016 11/23/2017 Menorrhagia with regular cycle 12/03/2016 0 11/23/2017 Abnormal uterine bleeding 08/17/20132017 Urge incontinence 08/17/2013 11/23/2017 Morbid obesity with BMI of 40.0-44.9, adult 08/2 11/201211/23/2017 Low back pain 12/28/2012 11/23/2017 documented as of this encounter (statuses as of 10/25/2021) [facility] History of Past illness Narrative* Problem Noted Date Resolved Date Leg pain, bilateral 04/22/2017 11/23/2017 Iron deficiency anemia due to chronic blood loss 12/03/2016 11/23/2017 Menorrhagia with regular cycle 12/03/2016 0 11/23/2017 Abnormal uterine bleeding 08/17/20132017 Urge incontinence 08/17/2013 11/23/2017 Morbid obesity with BMI of 40.0-44.9, adult 08/2 11/201211/23/2017 Low back pain 12/28/2012 11/23/2017 documented as of this encounter (statuses as of 11/06/2021) [facility] History of Past illness Narrative* Problem Noted Date Resolved Date Leg pain, bilateral 04/22/2017 11/23/2017 Iron deficiency anemia due to chronic blood loss 12/03/2016 11/23/2017 Menorrhagia with regular cycle 12/03/2016 0 11/23/2017 Abnormal uterine bleeding 08/17/20132017 Urge incontinence 08/17/2013 11/23/2017 Morbid obesity with BMI of 40.0-44.9, adult 08/2 11/201211/23/2017 Low back pain 12/28/2012 11/23/2017 documented as of this encounter (statuses as of 11/06/2021) [facility] History of Past illness Narrative* Problem Noted Date Resolved Date Leg pain, bilateral 04/22/2017 11/23/2017 Iron deficiency anemia due to chronic blood loss 12/03/2016 11/23/2017 Menorrhagia with regular cycle 12/03/2016 0 11/23/2017 Abnormal uterine bleeding 08/17/20132017 Urge incontinence 08/17/2013 11/23/2017 Morbid obesity with BMI of 40.0-44.9, adult 08/2 11/201211/23/2017 Low back pain 12/28/2012 11/23/2017 documented as of this encounter (statuses as of 11/22/2021) [facility] History of Past illness Narrative* Problem Noted Date Resolved Date Leg pain, bilateral 04/22/2017 11/23/2017 Iron deficiency anemia due to chronic blood loss 12/03/2016 11/23/2017 Menorrhagia with regular cycle 12/03/2016 0 11/23/2017 Abnormal uterine bleeding 08/17/20132017 Urge incontinence 08/17/2013 11/23/2017 Morbid obesity with BMI of 40.0-44.9, adult 08/2 11/201211/23/2017 Low back pain 12/28/2012 11/23/2017 documented as of this encounter (statuses as of 11/25/2021) [facility] History of Past illness Narrative* Problem Noted Date Resolved Date Leg pain, bilateral 04/22/2017 11/23/2017 Iron deficiency anemia due to chronic blood loss 12/03/2016 11/23/2017 Menorrhagia with regular cycle 12/03/2016 0 11/23/2017 Abnormal uterine bleeding 08/17/20132017 Urge incontinence 08/17/2013 11/23/2017 Morbid obesity with BMI of 40.0-44.9, adult 08/2 11/201211/23/2017 Low back pain 12/28/2012 11/23/2017 documented as of this encounter (statuses as of 12/29/2021) [facility] History of Past illness Narrative* Problem Noted Date Resolved Date Leg pain, bilateral 04/22/2017 11/23/2017 Iron deficiency anemia due to chronic blood loss 12/03/2016 11/23/2017 Menorrhagia with regular cycle 12/03/2016 0 11/23/2017 Abnormal uterine bleeding 08/17/20132017 Urge incontinence 08/17/2013 11/23/2017 Morbid obesity with BMI of 40.0-44.9, adult 08/2 11/201211/23/2017 Low back pain 12/28/2012 11/23/2017 documented as of this encounter (statuses as of 01/30/2022) [facility] History of Past illness Narrative* Problem Noted Date Resolved Date Leg pain, bilateral 04/22/2017 11/23/2017 Iron deficiency anemia due to chronic blood loss 12/03/2016 11/23/2017 Menorrhagia with regular cycle 12/03/2016 0 11/23/2017 Abnormal uterine bleeding 08/17/20132017 Urge incontinence 08/17/2013 11/23/2017 Morbid obesity with BMI of 40.0-44.9, adult 08/2 11/201211/23/2017 Low back pain 12/28/2012 11/23/2017 documented as of this encounter (statuses as of 02/03/2022) [facility] History of Past illness Narrative* Problem Noted Date Resolved Date Leg pain, bilateral 04/22/2017 11/23/2017 Iron deficiency anemia due to chronic blood loss 12/03/2016 11/23/2017 Menorrhagia with regular cycle 12/03/2016 0 11/23/2017 Abnormal uterine bleeding 08/17/20132017 Urge incontinence 08/17/2013 11/23/2017 Morbid obesity with BMI of 40.0-44.9, adult 08/2 11/201211/23/2017 Low back pain 12/28/2012 11/23/2017 documented as of this encounter (statuses as of 03/05/2022) [facility] History of Past illness Narrative* Problem Noted Date Resolved Date Leg pain, bilateral 04/22/2017 11/23/2017 Iron deficiency anemia due to chronic blood loss 12/03/2016 11/23/2017 Menorrhagia with regular cycle 12/03/2016 0 11/23/2017 Abnormal uterine bleeding 08/17/20132017 Urge incontinence 08/17/2013 11/23/2017 Morbid obesity with BMI of 40.0-44.9, adult 08/2 11/201211/23/2017 Low back pain 12/28/2012 11/23/2017 documented as of this encounter (statuses as of 03/05/2022) [facility] History of Past illness Narrative* Problem Noted Date Resolved Date Leg pain, bilateral 04/22/2017 11/23/2017 Iron deficiency anemia due to chronic blood loss 12/03/2016 11/23/2017 Menorrhagia with regular cycle 12/03/2016 0 11/23/2017 Abnormal uterine bleeding 08/17/20132017 Urge incontinence 08/17/2013 11/23/2017 Morbid obesity with BMI of 40.0-44.9, adult 08/2 11/201211/23/2017 Low back pain 12/28/2012 11/23/2017 documented as of this encounter (statuses as of 03/31/2022) [facility] History of Past illness Narrative* Problem Noted Date Resolved Date Leg pain, bilateral 04/22/2017 11/23/2017 Iron deficiency anemia due to chronic blood loss 12/03/2016 11/23/2017 Menorrhagia with regular cycle 12/03/2016 0 11/23/2017 Abnormal uterine bleeding 08/17/20132017 Urge incontinence 08/17/2013 11/23/2017 Morbid obesity with BMI of 40.0-44.9, adult 08/2 11/201211/23/2017 Low back pain 12/28/2012 11/23/2017 documented as of this encounter (statuses as of 04/10/2022) [facility] History of Past illness Narrative* Problem Noted Date Resolved Date Leg pain, bilateral 04/22/2017 11/23/2017 Iron deficiency anemia due to chronic blood loss 12/03/2016 11/23/2017 Menorrhagia with regular cycle 12/03/2016 0 11/23/2017 Abnormal uterine bleeding 08/17/20132017 Urge incontinence 08/17/2013 11/23/2017 Morbid obesity with BMI of 40.0-44.9, adult 08/2 11/201211/23/2017 Low back pain 12/28/2012 11/23/2017 documented as of this encounter (statuses as of 05/08/2022) [facility] History of Past illness Narrative* Problem Noted Date Resolved Date Leg pain, bilateral 04/22/2017 11/23/2017 Iron deficiency anemia due to chronic blood loss 12/03/2016 11/23/2017 Menorrhagia with regular cycle 12/03/2016 0 11/23/2017 Abnormal uterine bleeding 08/17/20132017 Urge incontinence 08/17/2013 11/23/2017 Morbid obesity with BMI of 40.0-44.9, adult 08/2 11/201211/23/2017 Low back pain 12/28/2012 11/23/2017 documented as of this encounter (statuses as of 05/09/2022) [facility] History of Past illness Narrative* Problem Noted Date Resolved Date Leg pain, bilateral 04/22/2017 11/23/2017 Iron deficiency anemia due to chronic blood loss 12/03/2016 11/23/2017 Menorrhagia with regular cycle 12/03/2016 0 11/23/2017 Abnormal uterine bleeding 08/17/20132017 Urge incontinence 08/17/2013 11/23/2017 Morbid obesity with BMI of 40.0-44.9, adult 08/2 11/201211/23/2017 Low back pain 12/28/2012 11/23/2017 documented as of this encounter (statuses as of 05/09/2022) [facility] History of Past illness Narrative* Problem Noted Date Resolved Date Leg pain, bilateral 04/22/2017 11/23/2017 Iron deficiency anemia due to chronic blood loss 12/03/2016 11/23/2017 Menorrhagia with regular cycle 12/03/2016 0 11/23/2017 Abnormal uterine bleeding 08/17/20132017 Urge incontinence 08/17/2013 11/23/2017 Morbid obesity with BMI of 40.0-44.9, adult 08/2 11/201211/23/2017 Low back pain 12/28/2012 11/23/2017 documented as of this encounter (statuses as of 07/03/2022) [facility] History of Past illness Narrative* Problem Noted Date Resolved Date Leg pain, bilateral 04/22/2017 11/23/2017 Iron deficiency anemia due to chronic blood loss 12/03/2016 11/23/2017 Menorrhagia with regular cycle 12/03/2016 0 11/23/2017 Abnormal uterine bleeding 08/17/20132017 Urge incontinence 08/17/2013 11/23/2017 Morbid obesity with BMI of 40.0-44.9, adult 08/2 11/201211/23/2017 Low back pain 12/28/2012 11/23/2017 documented as of this encounter (statuses as of 07/04/2022) [facility] History of Past illness Narrative* Problem Noted Date Resolved Date Leg pain, bilateral 04/22/2017 11/23/2017 Iron deficiency anemia due to chronic blood loss 12/03/2016 11/23/2017 Menorrhagia with regular cycle 12/03/2016 0 11/23/2017 Abnormal uterine bleeding 08/17/20132017 Urge incontinence 08/17/2013 11/23/2017 Morbid obesity with BMI of 40.0-44.9, adult 08/2 11/201211/23/2017 Low back pain 12/28/2012 11/23/2017 documented as of this encounter (statuses as of 09/09/2022) [facility] History of Past illness Narrative* Problem Noted Date Resolved Date Leg pain, bilateral 04/22/2017 11/23/2017 Iron deficiency anemia due to chronic blood loss 12/03/2016 11/23/2017 Menorrhagia with regular cycle 12/03/2016 0 11/23/2017 Abnormal uterine bleeding 08/17/20132017 Urge incontinence 08/17/2013 11/23/2017 Morbid obesity with BMI of 40.0-44.9, adult 08/2 11/201211/23/2017 Low back pain 12/28/2012 11/23/2017 documented as of this encounter (statuses as of 10/03/2022) [facility] History of Past illness Narrative* Problem Noted Date Resolved Date Leg pain, bilateral 04/22/2017 11/23/2017 Iron deficiency anemia due to chronic blood loss 12/03/2016 11/23/2017 Menorrhagia with regular cycle 12/03/2016 0 11/23/2017 Abnormal uterine bleeding 08/17/20132017 Urge incontinence 08/17/2013 11/23/2017 Morbid obesity with BMI of 40.0-44.9, adult 08/2 11/201211/23/2017 Low back pain 12/28/2012 11/23/2017 documented as of this encounter (statuses as of 10/28/2022) [facility] History of Past illness Narrative* Problem Noted [...] of this encounter (statuses as of 12/10/2022) [facility] History of Past illness Narrative* Problem Noted [...] of this encounter (statuses as of 01/16/2023) [facility] [place]12[facility] History of Past illness Narrative* Problem Noted [...] of this encounter (statuses as of 02/03/2023) [facility] [place]12-20[facility]2017 History of Past illness Narrative* Problem Noted [...] of this encounter (statuses as of 03/17/2023) [facility] Diagnosis Situational anxiety Other anxiety states Panic attacks Panic disorder without agoraphobia documented in this encounter [facility] Diagnosis Situational anxiety- Primary Other anxiety states Panic attacks Panic disorder without agoraphobia Swelling of upper arm Hypoparathyroidism, unspecified hypoparathyroidism type (HCC) AYLA (acute kidney injury) (HCC) Acute kidney failure, unspecified Vitamin D deficiency Unspecified vitamin D deficiency documented in this encounter [facility] Diagnosis AYLA (acute kidney injury) (HCC)- Primary Acute kidney failure, unspecified Situational anxiety Other anxiety states Panic attacks Panic disorder without agoraphobia Hypoparathyroidism, unspecified hypoparathyroidism type (HCC) Thyroid disorder screening Screening for thyroid disorder Mixed hyperlipidemia Primary hypertension Unspecified essential hypertension Bilateral leg edema Edema [facility] Diagnosis Hypertension, essential Unspecified essential hypertension [facility] Diagnosis Hypertension, essential Unspecified essential hypertension [facility] Diagnosis Mixed hyperlipidemia- Primary [facility] Diagnosis Situational anxiety Other anxiety states Panic attacks Panic disorder without agoraphobia [facility] Diagnosis Hypertension, essential Unspecified essential hypertension [facility] Diagnosis Situational anxiety Other anxiety states Panic attacks Panic disorder without agoraphobia documented in this encounter [facility] note* Diagnosis Encounter for screening mammogram for breast cancer documented in this encounter [facility] Diagnosis Situational anxiety Other anxiety states Panic attacks Panic disorder without agoraphobia documented in this encounter [facility] Diagnosis Hypertension, essential Unspecified essential hypertension Situational anxiety Other anxiety states Panic attacks Panic disorder without agoraphobia documented in this encounter [facility] Diagnosis Situational anxiety- Primary Other anxiety states Hypertension, essential Unspecified essential hypertension Panic attacks Panic disorder without agoraphobia Mixed hyperlipidemia Hypoparathyroidism, unspecified hypoparathyroidism type (HCC) documented in this encounter [facility] Diagnosis AYLA (acute kidney injury) (HCC)- Primary Acute kidney failure, unspecified [facility] Diagnosis Encounter for gynecological examination without abnormal finding- Primary Routine gynecological examination Encounter for screening for malignant neoplasm of cervix Screening for malignant neoplasm of the cervix Special screening examination for human papillomavirus (HPV) Encounter for screening mammogram for malignant neoplasm of breast Other screening mammogram documented in this encounter [facility] Diagnosis Routine physical examination- Primary Routine [...] psoriasis Other psoriasis [facility] Diagnosis Scalp psoriasis- Primary Other psoriasis documented in this encounter [facility]* Diagnosis Hypertension, essential Unspecified essential hypertension documented in this encounter [facility] Diagnosis Borderline abnormal thyroid function test- Primary Nonspecific abnormal results of thyroid function study Vitamin B12 deficiency Other B-complex deficiencies Hypertension, essential Unspecified essential hypertension Scalp psoriasis Other psoriasis Mixed hyperlipidemia Hypoparathyroidism, unspecified hypoparathyroidism type (HCC) Fatty liver Other chronic nonalcoholic liver disease Stage 3a chronic kidney disease (HCC) Situational anxiety Other anxiety states documented in this encounter [facility] for referral (narrative)* Diagnostic Procedure Only (Routine) - Pending Review Specialty Diagnoses / Procedures Referred By Anni t Referred To Contact US IMAGING Diagnoses Swelling of upper arm Procedures US DVT UPPER LT DUP-SCAN XTR VEINS UNILATERAL/LIMITED STUDY Erich Hawkins APRN.CNP [address] [place] [address] Us Imaging Referral ID Status Reason Start Date Expiration Date Visits Requested Visits Authorized [id number] Pending Review Auto-Generat ed Referral 09/18/2021 10/18/2022 1 1 [facility] for referral (narrative)* Diagnostic Procedure Only (Routine) - Pending Review Specialty Diagnoses / Procedures Referred By Anni t Referred To Contact BR IMAGING Diagnoses Encounter for screening mammogram for breast cancer Procedures SARAH SCREENING SCREENING MAMMOGRAPHY BI 2-VIEW BREAST INC Brendon Mcclendon DO [address] [place] [address] [facility] [address] [place] [address] Referral ID Status Reason Start Date Expiration Date Visits Requested Visits Authorized [id number] Pending Review Auto-Generat ed Referral 2 04/25/2023 1 1 [facility] for referral (narrative)* Diagnostic Procedure Only (Routine) - Pending Review Specialty Diagnoses / Procedures Referred By Anni t Referred To Contact MOLECULAR & FUNCTIONAL IMAGING Diagnoses Calculus of gallbladder without cholecystitis without obstruction Procedures NM HEPATOBILIARY W EF AND/OR RX HEPATOBIL SYST IMAG INC GB W/PHARMA INTERVENJ Brendon Blakely, DO [address] [place] [address] Molecular & Functional Imaging [address] [place] [address] Referral ID Status Reason Start Date Expiration Date Visits Requested Visits Authorized [id number] Pending Review Auto-Generat ed Referral 12/09/2022 01/08/2024 1 1 * Diagnostic Procedure Only (Routine) - Pending Review Specialty Diagnoses / Procedures Referred By Contac t Referred To Contact US IMAGING Diagnoses Fatty liver Procedures US ELASTOGRAPHY LIVER ULTRASOUND ELASTOGRAPHY PARENCHYMA Brendon Blakely DO [address] [place] [address] Us Imaging Referral ID Status Reason Start Date Expiration Date Visits Requested Visits Authorized [id number] Pending Review Auto-Generat ed Referral 12/09/2022 01/08/2024 1 1 * Diagnostic Procedure Only (Routine) - Pending Review Specialty Diagnoses / Procedures Referred By Contac t Referred To Contact US IMAGING Diagnoses Fatty liver Procedures US ABD RIGHT UPPER QUADRANT US ABDOMINAL REAL TIME W/IMAGE LIMITED Brendon Blakely DO [address] [place] [address] Us Imaging Referral ID Status Reason Start Date Expiration Date Visits Requested Visits Authorized [id number] Pending Review Auto-Generat ed Referral 12/09/2022 01/08/2024 1 1 [facility] [place] Summary Purpose Family History No Family History Records FoundNo Family History Records Found Advance Directives No Advanced Directives Records FoundNo Advanced Directives Records Found Reason for Referral Specialty Diagnoses / Procedures Referred By Contac t Referred To Contact Dermatology Diagnoses Scalp psoriasis Procedures CONSULT TO DERMATOLOGY Erich Rizzo APRN.[employer] [address] [place] [address] Referral ID Status Reason Start Date Expiration Date Visits Requested Visits Authorized [id number] Ref Not Required PCP Requested Referral 01/15/2023 01/15/2024 1 1 Additional Source Comments INFORMATION SOURCE (unrecogn ized section and content) DATE CREATED AUTHOR AUTHOR'S CUCO ATION 03/18/2023 [facility] Source Comments (unrecognize d section and content) In the event this informatio n is protected by the Federal Confidentiality of Alcohol and Drug Abuse Patient Records regulations: The Federal rules restrict any use of the information to criminally investigate or prosecute any alcohol or drug abuse patient.[facility] [place] the event this information is protected by the Federal Confidentiality of Alcohol and Drug Abuse Patient Records regulations: The Federal rules restrict any use of the information to criminally investigate or prosecute any alcohol or drug abuse patient.[facility] [place] the event this information is protected by the Federal Confidentiality of Alcohol and Drug Abuse Patient Records regulations: The Federal rules restrict any use of the information to criminally investigate or prosecute any alcohol or drug abuse patient.[facility] [place] the event this information is protected by the Federal Confidentiality of Alcohol and Drug Abuse Patient Records regulations: The Federal rules restrict any use of the information to criminally investigate or prosecute any alcohol or drug abuse patient.[facility] [place] the event this information is protected by the Federal Confidentiality of Alcohol and Drug Abuse Patient Records regulations: The Federal rules restrict any use of the information to criminally investigate or prosecute any alcohol or drug abuse patient.[facility] [place] the event this information is protected by the Federal Confidentiality of Alcohol and Drug Abuse Patient Records regulations: The Federal rules restrict any use of the information to criminally investigate or prosecute any alcohol or drug abuse patient.[facility] [place] the event this information is protected by the Federal Confidentiality of Alcohol and Drug Abuse Patient Records regulations: The Federal rules restrict any use of the information to criminally investigate or prosecute any alcohol or drug abuse patient.[facility] [place] the event this information is protected by the Federal Confidentiality of Alcohol and Drug Abuse Patient Records regulations: The Federal rules restrict any use of the information to criminally investigate or prosecute any alcohol or drug abuse patient.[facility] [place] the event this information is protected by the Federal Confidentiality of Alcohol and Drug Abuse Patient Records regulations: The Federal rules restrict any use of the information to criminally investigate or prosecute any alcohol or drug abuse patient.[facility] [place] the event this information is protected by the Federal Confidentiality of Alcohol and Drug Abuse Patient Records regulations: The Federal rules restrict any use of the information to criminally investigate or prosecute any alcohol or drug abuse patient.[facility] [place] the event this information is protected by the Federal Confidentiality of Alcohol and Drug Abuse Patient Records regulations: The Federal rules restrict any use of the information to criminally investigate or prosecute any alcohol or drug abuse patient.[facility] [place] the event this information is protected by the Federal Confidentiality of Alcohol and Drug Abuse Patient Records regulations: The Federal rules restrict any use of the information to criminally investigate or prosecute any alcohol or drug abuse patient.[facility] [place] the event this information is protected by the Federal Confidentiality of Alcohol and Drug Abuse Patient Records regulations: The Federal rules restrict any use of the information to criminally investigate or prosecute any alcohol or drug abuse patient.[facility] [place] the event this information is protected by the Federal Confidentiality of Alcohol and Drug Abuse Patient Records regulations: The Federal rules restrict any use of the information to criminally investigate or prosecute any alcohol or drug abuse patient.[facility] [place] the event this information is protected by the Federal Confidentiality of Alcohol and Drug Abuse Patient Records regulations: The Federal rules restrict any use of the information to criminally investigate or prosecute any alcohol or drug abuse patient.[facility] [place] the event this information is protected by the Federal Confidentiality of Alcohol and Drug Abuse Patient Records regulations: The Federal rules restrict any use of the information to criminally investigate or prosecute any alcohol or drug abuse patient.[facility] [place] the event this information is protected by the Federal Confidentiality of Alcohol and Drug Abuse Patient Records regulations: The Federal rules restrict any use of the information to criminally investigate or prosecute any alcohol or drug abuse patient.[facility] [place] the event this information is protected by the Federal Confidentiality of Alcohol and Drug Abuse Patient Records regulations: The Federal rules restrict any use of the information to criminally investigate or prosecute any alcohol or drug abuse patient.[facility] [place] the event this information is protected by the Federal Confidentiality of Alcohol and Drug Abuse Patient Records regulations: The Federal rules restrict any use of the information to criminally investigate or prosecute any alcohol or drug abuse patient.[facility] [place] the event this information is protected by the Federal Confidentiality of Alcohol and Drug Abuse Patient Records regulations: The Federal rules restrict any use of the information to criminally investigate or prosecute any alcohol or drug abuse patient.[facility] [place] the event this information is protected by the Federal Confidentiality of Alcohol and Drug Abuse Patient Records regulations: The Federal rules restrict any use of the information to criminally investigate or prosecute any alcohol or drug abuse patient.[facility] [place] the event this information is protected by the Federal Confidentiality of Alcohol and Drug Abuse Patient Records regulations: The Federal rules restrict any use of the information to criminally investigate or prosecute any alcohol or drug abuse patient.[facility] [place] the event this information is protected by the Federal Confidentiality of Alcohol and Drug Abuse Patient Records regulations: The Federal rules restrict any use of the information to criminally investigate or prosecute any alcohol or drug abuse patient.[facility] [place] the event this information is protected by the Federal Confidentiality of Alcohol and Drug Abuse Patient Records regulations: The Federal rules restrict any use of the information to criminally investigate or prosecute any alcohol or drug abuse patient.[facility] [place] the event this information is protected by the Federal Confidentiality of Alcohol and Drug Abuse Patient Records regulations: The Federal rules restrict any use of the information to criminally investigate or prosecute any alcohol or drug abuse patient.[facility] [place]In the event this information is protected by the Federal Confidentiality of Alcohol and Drug Abuse Patient Records regulations: The Federal rules restrict any use of the information to criminally investigate or prosecute any alcohol or drug abuse patient.[facility] [place] the event this information is protected by the Federal Confidentiality of Alcohol and Drug Abuse Patient Records regulations: The Federal rules restrict any use of the information to criminally investigate or prosecute any alcohol or drug abuse patient.[facility] [place]In the event this information is protected by the Federal Confidentiality of Alcohol and Drug Abuse Patient Records regulations: The Federal rules restrict any use of the information to criminally investigate or prosecute any alcohol or drug abuse patient.[facility] [place]In the event this information is protected by the Federal Confidentiality of Alcohol and Drug Abuse Patient Records regulations: The Federal rules restrict any use of the information to criminally investigate or prosecute any alcohol or drug abuse patient.[facility] [place] Reason for Visit (unrecogniz ed section and [...] Care Teams (unrecognized sec tion and content) Glass Cutter Hand Relationship Specialty Start Date End Date Brendon Blakely, DO [address] [place] [address] PCP - General Family Practice 12/28/12 Glass Cutter Hand Relationship Specialty Start Date End Date Brendon Blakely DO [address] [place] [address] PCP - General Family Practice 12/28/12 Glass Cutter Hand Relationship Specialty Start Date End Date Brendon Blakely DO [address] [place] [address] PCP - General Family Practice 12/28/12 Glass Cutter Hand Relationship Specialty Start Date End Date Brendon Blakely DO [address] [place] [address] PCP - General Family Practice 12/28/12 Glass Cutter Hand Relationship Specialty Start Date End Date Brendon Blakely DO [address] [place] [address] PCP - General Family Practice 12/28/12 Glass Cutter Hand Relationship Specialty Start Date End Date Brendon Blakely, DO [address] [place] [address] PCP - General Family Practice 12/28/12 Glass Cutter Hand Relationship Specialty Start Date End Date Brendon Blakely DO [address] [place] [address] PCP - General Family Practice 12/28/12 Glass Cutter Hand Relationship Specialty Start Date End Date Brendon Blakely, DO [address] [place] [address] PCP - General Family Practice 12/28/12 Glass Cutter Hand Relationship Specialty Start Date End Date Brendon Blakely, DO [address] [place] [address] PCP - General Family Medicine 12/28/12 Glass Cutter Hand Relationship Specialty Start Date End Date Brendon Blakely, DO [address] [place] [address] PCP - General Family Medicine 12/28/12 Glass Cutter Hand Relationship Specialty Start Date End Date Brendon Blakely, DO [address] [place] [address] PCP - General Family Medicine 12/28/12 Glass Cutter Hand Relationship Specialty Start Date End Date Brendon Blakely, DO [address] [place] [address] PCP - General Family Medicine 12/28/12 Glass Cutter Hand Relationship Specialty Start Date End Date Brendon Blakely, DO [address] [place] [address] PCP - General Family Medicine 12/28/12 Glass Cutter Hand Relationship Specialty Start Date End Date Brendon Blakeyl, DO [address] [place] [address] PCP - General Family Medicine 12/28/12 Glass Cutter Hand Relationship Specialty Start Date End Date Brendon Blakely, DO [address] [place] [address] PCP - General Family Medicine 12/28/12 Glass Cutter Hand Relationship Specialty Start Date End Date Brendon Blakely, DO [address] [place] [address] PCP - General Family Medicine 12/28/12 Glass Cutter Hand Relationship Specialty Start Date End Date Brendon Blakely, DO [address] [facility] [place] [address] PCP - General Family Medicine 12/28/12 Glass Cutter Hand Relationship Specialty Start Date End Date Brendon Blakely DO [address] [facility] [place] [address] PCP - General Family Medicine 12/28/12 Glass Cutter Hand Relationship Specialty Start Date End Date Brendon Blakely DO [address] [place] [address] PCP - General Family Medicine 12/28/12 Glass Cutter Hand Relationship Specialty Start Date End Date Brendon Blakely DO [address] [place] [address] PCP - General Family Medicine 12/28/12 Glass Cutter Hand Relationship Specialty Start Date End Date Brendon Blakely DO [address] [place] [address] PCP - General Family Medicine 12/28/12 Glass Cutter Hand Relationship Specialty Start Date End Date Brendon Blakely DO [address] [place] [address] PCP - General Family Medicine 12/28/12 FOR [...] BE BASED ON THE PRIMARY CLINICAL RECORDS. [facility]. provides no warranty or guarantee of the accuracy or completeness of information in this document.
== END | disposition home or self-care (01) ==
PROVIDERS: PCP Student in an Organized Health Care Education/Training Program; Referring Provider Nurse Practitioner Family; Visit Provider Nurse Practitioner Family
DX: I10 Essential (primary) hypertension (principal); R94.4 Abnormal results of kidney function studies; R63.5 Abnormal weight gain; R20.0 Anesthesia of skin; R20.2 Paresthesia of skin; R60.0 Localized edema
CPT/HCPCS: 36415; 72050; 80053; 83880

== ENCOUNTER → 2023-07-22 | Outpatient (CLI) | payer OTHER, SELFPAY ==
--- NOTE | 2023-07-22 09:18 | NEURO ---
NCS and/or EMG Patient Report Ordering Doctor: Elaine Harrison DATE OF SERVICE: 07/22/23 Ioana presents for electrodiagnostic testing of the upper limbs. She reports numbness and tingling in both hands, worse on the left side. Electrodiagnostic findings: Left median motor nerve demonstrates prolonged latency with normal amplitude and reduced conduction velocity. Right median motor nerve demonstrates prolonged distal latency with normal amplitude and normal conduction velocity. Ulnar motor response is within normal limits bilaterally. Borderline prolonged right median F?wave. Prolonged median sensory latency at the wrist bilaterally. Needle EMG testing was performed in the upper limbs. All muscles tested showed no evidence of denervation with normal motor unit action potentials. Electrodiagnostic impression: This is an abnormal study in the upper limbs. 1. Electrodiagnostic findings suggestive of bilateral median mononeuropathy. This is consistent with a moderate bilateral carpal tunnel syndrome. Multi Select Codes Neurology Neurology Interp Codes: 60112-56 Musc test done w/n test comp (interp) (2) and 55597-26 Nrv cndj test 9-10 studies (interp)
== END | disposition home or self-care (01) ==
LOC: PSN 07:08
PROVIDERS: PCP Student in an Organized Health Care Education/Training Program; Referring Provider Chiropractor; Visit Provider Chiropractor
DX: M54.12 Radiculopathy, cervical region (principal); M50.30 Other cervical disc degeneration, unspecified cervical region
CPT/HCPCS: 95886; 95911

== ENCOUNTER 2023-08-05 10:27 | Day surgery (SDC) | payer OTHER, SELFPAY ==
[2023-08-05] VITALS (7 sets, daily range): BP systolic 129–167; BP diastolic 58–90; PULSE 73–84; RESP 16; TEMP 36.3–37.1; O2SAT 82–97; BMI 43.2
--- NOTE | 2023-08-05 11:00 | HP.PCM_ITS ---
History and Physical MR#: [id number] Acct: [id number] Name: IOANA FLETCHER Rep #: [id number] : 1970 Provider: Dr. Tariq Jacobson MD Age/Sex: 52/F Location: [facility] [place] Status: Signed Intake Vital Signs 06/25/2414:34 07/26/2408:17 07/27/2414:07 Height 5 ft 5 in 5 ft 5 in 5 ft 5 in Weight: 279 lb 4 oz BMI 46.4 Intake Visit Reasons: CERVICAL SPINE Chief Complaint: upper back, left neck and arm Accompanied by: Self Is patient in pain?: Yes (Flares up and Burning- 9/10 ) Pain scale (1-10): 5 Allergies adhesive tape Allergy (Intermediate, Verified 07/28/23 15:19) Rashlatex Allergy (Mild, Verified 07/28/23 15:19) rashPenicillins Allergy (Verified 07/28/23 15:19) Shortness of breathcitalopram [From Celexa] Adverse Reaction (Verified 07/28/23 15:19) Other Medications calcium 600 mg capsule 600 mg PO BID 09/12/21 [History Confirmed 07/28/23] losartan 100 mg tablet 100 mg PO DAILY 05/20/22 [History Confirmed 07/20/23] spironolactone 25 mg tablet 25 mg PO DAILY 05/20/22 [History Confirmed 07/28/23] fishoil PO 08/22/22 [History Confirmed 07/28/23] calcitriol 0.5 mcg capsule 0.5 mcg PO BID #180 caps 04/09/23 [Rx Confirmed ] desvenlafaxine succinate 100 mg tablet,extended release 24 hr 100 mg PO DAILY 30 days #30 tabs 05/13/23 [Rx Confirmed 07/28/23] mirtazapine 30 mg tablet 30 mg PO QHS #30 tabs 05/13/23 [Rx Confirmed 07/28/23] labetalol 100 mg tablet mg PO 06/25/23 [History Confirmed 07/28/23] clonazepam 0.5 mg tablet 0.5 mg PO DAILY PRN anxiety 30 days #30 tabs 07/14/23 [Rx Confirmed 07/28/23] PFSH Medical History Abnormal glucose Anxiety Arthritis Back pain Back problem Carpal tunnel syndrome Chronic bilateral low back pain without sciatica Chronic headaches Essential hypertension Former smoker YOEL (generalized anxiety disorder) Gallstones GI problem History of anemia HTN (hypertension) Hx of fracture Hypoparathyroidism Left knee pain Low calcium levels Obesity Osteoarthritis Osteoarthritis of left knee Panic disorder Rosacea Seasonal allergies Vitamin D deficiency Surgical History Breast cyst History of adenoidectomy S/P endometrial ablation Family History Brother Asthma Autoimmune disorder Diabetes Hypertension Kidney disease Mental disorderMother Arthritis Blood clot in vein Diabetes Mental disorder HyperlipidemiaGrandmother Cancer MelanomaGrandfather Myocardial infarction Heart disease Hyperlipidemia Social History household members: family and children current occupation: Works at [employer] Smoking Status: Former smoker pack-years: 6 how long ago did patient quit smokin years alcohol intake: never substance use type: does not use what type of physical activity do you participate in: none do you feel safe at home: Yes HPI CERVICAL SPINE Details: This documentation accurately reflects the service provided and the decisions made by me, Dr. Tariq Jacobson MD 07/28/23 [id number]. Part of today?s visit was documented by Demetrice PEDRO , acting as scribe. IOANA FLETCHER is a 52 year old F here today for neck/ shoulder pain. Patient states this has been going on for about 6 weeks now. Patient states she woke up and she had burning sensation in her left wrist and hand. Patient states that she has at times she does have some pain down her whole left arm but most of the time the pain in in her left hand. Patient states that her ring finger and middle finger have a numbness and tingling and a burning sensation. Patient states every once in a while she will get a little tingle on the right hand. Feroz callaway states she does have tightness in her neck. Patient denies any injury to her left shoulder or neck. Patient does see Dr Harrison. Patient hasn't had injection or Physical therapy done. Dr Harrison did order a EMG and Patient had that done. Patient tried to take Tylenol and Gabapentin and that didn't help that pain. Gabapentin made her tired. Patient has tried ice and heat and no relief. Patient states it hard to keep it on when she is having the burning sensation. Ioana mentioned that all of her symptoms started about 6 weeks ago when she had severe burning numbness in the left hand. She also had neck pain and some radicular symptoms to the left upper extremity. She is right-hand dominant. She has seen Dr. Harrison in chiropractic. She underwent an EMG recently. She has used a left wrist splint nighttime initially for 2 weeks and then daytime as well without significant improvement of nerve symptoms. She has burning numbness over the palmar aspect of the left hand and this goes into the index middle and ring finger. She has no dorsal hand numbness but has numbness in the dorsal aspect of the fingertips especially the nails. She also developed stiffness in the left index and middle finger and is not able to make a complete fist over the last 6 weeks because of the pain. Her major symptom is the burning symptoms in the left hand and this is worse than her axial neck or radicular upper extremity pain. She is nondiabetic. She has an autoimmune disorder with hypoparathyroidism. Ortho Exam General General: Yes no acute distress Neurologic: Yes alert and Yes oriented x3 Left Wrist/Hand WRIST: Examination of the bilateral wrists and hand show positive carpal tunnel compression test bilaterally, negative Tinel sign, negative Phalen test. There is mild wasting of the left thenar eminences. There is baseline stiffness of the index and middle finger on the left hand especially in the interphalangeal and MCP joints. Spine SPINE TESTING CERVICAL THORACIC LUMBAR Musculoskeletal Strength 0=absent - 5=normal Details: Examination of the neck shows no tenderness. Neurologic motion upper extremity shows 5 x 5 power normal shows normal sensations in all dermatomes. Vi's is negative. There is no hyperreflexia lower extremities. Romberg's is nega tive. gait shows no imbalance. Coding Level of Care Code Off vis,new,level 4 Diagnoses Degeneration of intervertebral disc of cervicothoracic region M50.33 Spinal region: cervicothoracic Cervical radiculopathy M54.12 Carpal tunnel syndrome on both sides G56.03 Time Spent (min) 45 Assessment and Plan Assessment and Plan (1) DDD (degenerative disc disease): Status: Chronic Qualifiers: Spinal region: cervicothoracic Qualified Code(s): M50.33 - Other cervical disc degeneration, cervicothoracic region (2) Cervical radiculopathy: Status: Acute (3) Carpal tunnel syndrome on both sides: Status: Acute Orders: Orders Cerv Spine 2 or 3 Views Today M54.12 - Radiculopathy, cervical region Plan I reviewed her recent x-rays of the cervical spine today in the clinic. These show C4-5 spondylolisthesis with mild dynamic instability. C5-7 shows reduced disc height central disc degeneration. I also reviewed her EMG done recently which suggest moderate bilateral carpal tunnel syndrome. EMG did not indicate any cervical nerve root involvement, although this may be false negative. I explained to her that her severe burning numbness in the left hand is likely from the carpal tunnel syndrome although this shows moderate on the EMG. She does have some radicular symptoms arising from the neck. I suggested obtaining an MRI of the cervical spine to evaluate. I also suggested continued chiropractic treatment or physical therapy to help with her axial neck pain and radiculopathy as needed. I explained to her the treatment options for the left carpal tunnel syndrome. The options include continued bracing versus cortisone injections versus surgical release. Because the patient has developed significant stiffness and thenar wasting, I would recommend surgical open carpal tunnel release. All risk benefits and alternatives were discussed in detail. The risks include but are not limited to infection, bleeding, hematoma, need for further surgeries, incomplete release, recurrent carpal tunnel syndrome, persistent numbness, persistent weakness and wasting, persistence or worsening stiffness, trigger finger, tourniquet pain. Patient understands and agrees to proceed with surgery. Surgery will be scheduled in the near future. Restrictions after surgery were discussed in detail. Consent was signed.
[2023-08-05] MEDS: Lactated Ringers 1,000 ML 15 ML IV (11:13)
[2023-08-05] MEDS: Clindamycin 900 MG/50 ML BAG 75 MG IV (11:20)
[2023-08-05] MEDS: Lidocaine 1% (20 ml mdv) 20 ML Vial (11:29)
[2023-08-05] MEDS: Ropivacaine 0.5% 30 ML Vial (11:29)
--- NOTE | 2023-08-05 12:02 | PCM.OPRPT ---
Report of Operation Date of Procedure: 08/05/23 Description of Surgical Findings:: ATTENDING SURGEON: Tariq Jacobson MD MARINE STEWARD: none PREOPERATIVE DIAGNOSIS: Left carpal tunnel syndrome. POSTOPERATIVE DIAGNOSIS: Left carpal tunnel syndrome. PROCEDURE PERFORMED: Left open carpal tunnel release. CPT 56467 INDICATIONS FOR THE PROCEDURE: The patient is a 52-year-old lady, who presents with numbness in radial fingers and EMG, consistent with carpal tunnel syndrome. All conservative management and failed. After a discussion of the risks and benefits of the procedure, consent was signed for the procedure. DETAILS OF PROCEDURE: Patient was met in the preoperative holding area and the correct side was marked as the operative extremity. The patient was brought back to the operative suite and a hand table was placed. A tourniquet was placed. A timeout was performed which correctly identified the procedure to be performed, the operative site as well as the team members. Next, MAC anesthesia was induced. Local infiltration of 1% lidocaine mixed with 0.5% ropivacaine was infiltrated in the volar wrist. Next, the arm was prepped and draped in a sterile fashion. A timeout was performed again that confirmed the site and the procedure. Next, the patient's arm was exsanguinated using the Esmarch bandage and the tourniquet was inflated to 250 mmHg. A 1 inch incision was made longitudinally in line between the middle & ring ray from Maurer's cardinal line to the wrist crease. Sharp dissection was used to the level of the palmar fascia. This was incised in line with the incision in line with its fibers. Kasden retractors used to retract the fat and the fibers out of the way and revealed the transverse carpal ligament. This was incised in the proximal distal fashion to the level of the palmar fat. Once we saw this, we retracted back in order to release the proximal end of the carpal tunnel ligament. The median nerve was visualized in its entirety throughout this part of the procedure. There were no masses in the carpal tunnel noted. The nerve did not look very hyperemic. Once I was satisfied with the release and it was checked both proximally and distally with a finger in the incision, it was irrigated with copious amounts of normal saline. Wound was then closed with 4-0 nylon in interrupted fashion. Skin was cleaned and the tourniquet was let down. The wounds were dressed with Adaptic, gauze, Webril and a sterile Micheal wrap. Next, the patient was transported to the PACU in stable condition. I was present for the entire case. ESTIMATED BLOOD LOSS: Minimal. COMPLICATIONS: None. DISPOSITION: The patient will be discharged home when pain is controlled from PACU. Follow up in 2 weeks to get sutures removed. Light weightbearing restrictions. Procedures Musculoskeletal [id number]: Other Procedure See Report
== END 2023-08-05 13:14 | disposition home or self-care (01) ==
LOC: SDC 10:28 → AC 10:29
PROVIDERS: PCP Student in an Organized Health Care Education/Training Program; Referring Provider Orthopaedic Surgery Orthopaedic Surgery of the Spine; Visit Provider Orthopaedic Surgery Orthopaedic Surgery of the Spine
PROC: (CPT 64721; principal; 2023-08-05 11:40)
DX: G56.03 Carpal tunnel syndrome, bilateral upper limbs (principal); E20.9 Hypoparathyroidism, unspecified; Z87.891 Personal history of nicotine dependence; I10 Essential (primary) hypertension; F41.1 Generalized anxiety disorder; M50.33 Other cervical disc degeneration, cervicothoracic region; Z86.16 Personal history of COVID-19; Z87.448 Personal history of other diseases of urinary system; Z90.89 Acquired absence of other organs
CPT/HCPCS: 64721; 01810; J7120; J2405

== ENCOUNTER → 2023-08-24 | Outpatient (CLI) | payer OTHER, SELFPAY ==
[2023-08-24 10:39] LABS: ALB/GLOB Ratio 0.8 RATIO (0.9-2.4); AST(SGOT) 21 U/L (15-37); Alanine Aminotransfer ALT/SGPT 27 U/L (13-56); Albumin, Serum 3.7 g/dL (3.2-5.0); Alkaline Phosphatase 62 U/L (45-117); Anion Gap 6 (5-15); BUN 29 mg/dL (7-18); BUN/Creat Ratio 16.1 RATIO (10-20); Calcium,Total 10.2 mg/dL (8.5-10.1); Chloride 102 mmol/L (98-107); EST Glomerular Filtration Rate 31 mL/min (>60); Est Glom Filt Rate - Afr Amer 38 mL/min (>60); Globulin 4.6 g/dL (2.2-4.2); Glucose 188 mg/dL (74-106); Potassium 4.3 mmol/L (3.5-5.1); Protein, Total 8.3 g/dL (6.4-8.2); Sodium Level 138 mmol/L (136-145)
== END | disposition home or self-care (01) ==
LOC: LAB 09:36
PROVIDERS: PCP Student in an Organized Health Care Education/Training Program; Referring Provider Internal Medicine Endocrinology, Diabetes & Metabolism; Visit Provider Internal Medicine Endocrinology, Diabetes & Metabolism
DX: E20.9 Hypoparathyroidism, unspecified (principal)
CPT/HCPCS: 36415; 80053

== ENCOUNTER → 2023-09-02 | Outpatient (CLI) | payer OTHER, SELFPAY ==
[2023-09-02 08:39] LABS: Protein, Urine (Random) 24.5 mg/dL (<11.9); Protein:Creat Ratio 145 mg/g CRE (0-200)
[2023-09-02 08:43] LABS: Albumin, Serum 3.6 g/dL (3.2-5.0); BUN 24 mg/dL (7-18); BUN/Creat Ratio 15.5 RATIO (10-20); Chloride 104 mmol/L (98-107); Creatinine, Serum 1.55 mg/dL (0.55-1.02); EST Glomerular Filtration Rate 37 mL/min (>60); Est Glom Filt Rate - Afr Amer 45 mL/min (>60); Glucose 135 mg/dL (74-106); Phosphorus 3.5 mg/dL (2.5-4.9); Potassium 3.7 mmol/L (3.5-5.1); Sodium Level 138 mmol/L (136-145)
[2023-09-02 08:47] LABS: PTHIN 7.2 pg/mL (18.4-80.1)
[2023-09-02 08:50] LABS: Vitamin D,25 Hydroxy 31.9 ng/mL
== END | disposition home or self-care (01) ==
LOC: LAB 07:46
PROVIDERS: PCP Student in an Organized Health Care Education/Training Program; Referring Provider Nurse Practitioner Adult Health; Visit Provider Nurse Practitioner Adult Health
DX: N18.31 Chronic kidney disease, stage 3a (principal)
CPT/HCPCS: 36415; 80069; 82306; 82570; 83970; 84156

== ENCOUNTER → 2023-09-29 | Outpatient (CLI) | payer OTHER, SELFPAY ==
--- NOTE | 2023-09-29 16:07 | BI_ITS ---
MAMMOGRAPHY - BILATERAL SCREENING REASON FOR EXAM: Female, 52 years old. Routine annual screening examination. PERTINENT HISTORY: Non-contributory. TECHNIQUE: Digital bilateral breast hetal (3D mammographic acquisition) in the CC and MLO projections. 2-D mediolateral oblique (MLO) and craniocaudad (CC) views of both breasts were obtained. CAD: Full Field Digital Mammography with Computer Added Detection was performed. COMPARISON: Comparison is made with prior study dated September 23, 2022. FINDINGS: Breast Composition: The breasts are almost entirely fatty. There are no dominant masses or suspicious calcifications. Stable bilateral subcentimeter nodules most likely representing small cysts or intramammary lymph nodes. Stable small benign-appearing bilateral axillary lymph nodes. No other significant abnormalities are identified. There has been no significant change since the prior study. BI/SCRN MAMM (CAD)W/HETAL BILAT IMPRESSION: Stable bilateral screening mammogram. Yearly follow-up mammogram recommended. (A) ASSESSMENT CATEGORY: BIRADS Category 2: Benign. A letter regarding these results will be sent to the patient by the facility within 30 days. Approximately 10% of breast cancers are not detected by mammography. A normal mammogram should not delay biopsy of a clinically suspicious abnormality. [id number] Electronically Signed: Alan Duarte MD at 8:58 EDT ,
== END | disposition home or self-care (01) ==
LOC: OPBI 16:06
PROVIDERS: PCP Student in an Organized Health Care Education/Training Program; Referring Provider Student in an Organized Health Care Education/Training Program; Visit Provider Student in an Organized Health Care Education/Training Program
DX: Z12.31 Encounter for screening mammogram for malignant neoplasm of breast (principal)
CPT/HCPCS: 77063; 77067

== ENCOUNTER → 2023-10-07 | Outpatient (CLI) | payer OTHER, SELFPAY ==
--- NOTE | 2023-10-07 08:01 | RDU_ITS ---
Reason For Study: HTN Right Renal Artery Left Renal Artery Right renal artery ostium 77.3/17.1 Left renal artery ostium 67.5/11.8 RSV/EDV. PSV/EDV. Right renal artery proximal Left renal artery proximal PSV/EDV 72.7/20.4 PSV/EDV. 62.2/17.1 . Right renal artery mid 98.4/21.9 Left renal artery mid 71.0/16.0 PSV/EDV. PSV/EDV . Right renal artery distal 78.4/16.3 Left renal artery distal 68.0/15.2 PSV/EDV. PSV/EDV. Right RAR 1.23. Left RAR 0.89. Right Renal Parenchyma Left Renal Parenchyma Upper Pole Medula 33.8/9.1 PSV/EDV. Left upper pole medulla 30.6/9.8 Right upper pole medulla EDR 0.30 . PSV/EDV . Right upper pole medulla R.I. Left upper pole medulla EDR 0.30 . 0.73 . Left upper pole medulla R.I. 0.68 . Upper Luis Cortx 14.6/4.7 PSV/EDV. UP Cortex 16.3/7.3 PSV/EDV. Right upper pole cortex EDR 0.30 . Left upper pole cortex EDR 0.40 . Right upper pole cortex R.I. 0.68 . Left upper pole cortex R.I. 0.56 . Right lower Pole medulla 21.8/6.4 Left lower Pole medulla 30.6/11.1 PSV/EDV . PSV/EDV . Right lower pole medulla EDR 0.30 . Left lower pole medulla EDR 0.40 . Right lower pole medulla R.I. Left lower pole medulla R.I. 0.64 . 0.71 . Lower Pole Cortx 18.7/4.5 PSV/EDV. Lower Pole Cortex 15.7/4.7 PSV/EDV. Left lower pole cortex EDR 0.20 . Right lower pole cortex EDR 0.30 . Left lower pole cortex R.I. 0.76 . Right lower pole cortex R.I. 0.70 . Left Renal Hilar Right Renal Hilar LT Hilar avg 76.3/14.9 PSV/EDV . Right Hilar avg 106.0/29.4 PSV/EDV. Left hilar acceleration time 50 Right hilar acceleration time 50 m/sec. m/sec. Left Renal Dimensions Right Renal Dimensions Left kidney size 10.95 cm . Right kidney size 11.05 cm . Left cortical dimension 1.74 cm . Right cortical dimension 1.99 cm . Aorta Proximal abdominal aorta 2.10 x 2.04 cm . Proximal abdominal aorta peak systolic velocity is 79.8 cm/sec . Distal abdominal aorta 1.72 x 1.75 cm . Distal abdominal aorta peak systolic velocity is 1.77 cm/sec . VL/Renal Artery Duplex Ultrasound Interpretation Summary Right renal artery patent with normal velocities and no evidence of stenosis. Left renal artery patent with normal velocities and no evidence of stenosis. Right renal vein patent. Left renal vein patent. Right kidney normal in size. Left kidney normal in size. Ordering Physician: Brendon Saenz Referring Physician: Brendon Saenz Performed By: Hector Laboy RVT and Student
--- NOTE | 2023-10-07 08:01 | CDU_ITS ---
Reason For Study: HTN Rt. Velocities/BP Lt. Velocities/BP Prox CCA 91.6/19.0 cm/sec. Prox CCA 143.6/32.1 cm/sec. Mid CCA 82.8/16.8 cm/sec. Mid CCA 118.0/24.8 cm/sec. Dist CCA 81.7/22.3 cm/sec. Dist CCA 103.4/19.4 cm/sec. Prox ICA 82.8/21.2 cm/sec. Prox ICA 85.4/19.8 cm/sec. Mid ICA 68.8/18.2 cm/sec. Mid ICA 67.9/26.4 cm/sec. Dist ICA 87.5/33.6 cm/sec. Dist ICA 79.2/22.8 cm/sec. Rt. ICA/CCA = 1.1. Lt. ICA/CCA = 0.7. Prox ECA 130.2/29.8 cm/sec. Prox ECA 86.7/14.2 cm/sec. Rt. Vert. 52.5/15.7 cm/sec. Lt. Vert. 49.7/15.7 cm/sec. Right Extracranial There is intimal thickening but no significant atherosclerotic plaque noted in the right common carotid artery. There is intimal thickening but no significant atherosclerotic plaque noted in the right internal carotid artery. There is intimal thickening but no significant atherosclerotic plaque noted in the right external carotid artery. Antegrade flow is noted in the right vertebral artery. Left Extracranial There is intimal thickening but no significant atherosclerotic plaque noted in the left common carotid artery. There is intimal thickening but no significant atherosclerotic plaque noted in the left internal carotid artery. There is intimal thickening but no significant atherosclerotic plaque noted in the left external carotid artery. Antegrade flow is noted in the left vertebral artery. Procedure Carotid Duplex [id number]. This is a Carotid Duplex examination using B-mode, color flow and specral Doppler. The exam was diagnostic. Exam performed in department. VL/Carotid Duplex Ultrasound Interpretation Summary Normal right extracranial internal carotid. Normal left extracranial internal carotid. Patent and antegrade vertebrals bilaterally. Ordering Physician: Brendon Saenz Referring Physician: Brendon Saenz Performed By: Hector Laboy RVT and Student
== END | disposition home or self-care (01) ==
LOC: CVS 07:59
PROVIDERS: PCP Student in an Organized Health Care Education/Training Program; Visit Provider Student in an Organized Health Care Education/Training Program
DX: I10 Essential (primary) hypertension (principal)
CPT/HCPCS: 93880; 93975

== ENCOUNTER → 2023-10-12 | Outpatient (CLI) | payer OTHER, SELFPAY ==
[2023-10-12 16:44] LABS: ALB/GLOB Ratio 0.9 RATIO (0.9-2.4); AST(SGOT) 28 U/L (15-37); Alanine Aminotransfer ALT/SGPT 31 U/L (13-56); Albumin, Serum 3.8 g/dL (3.2-5.0); Alkaline Phosphatase 70 U/L (45-117); Anion Gap 6 (5-15); BUN 26 mg/dL (7-18); BUN/Creat Ratio 16.8 RATIO (10-20); Calcium,Total 9.5 mg/dL (8.5-10.1); Chloride 101 mmol/L (98-107); Creatinine, Serum 1.55 mg/dL (0.55-1.02); EST Glomerular Filtration Rate 37 mL/min (>60); Est Glom Filt Rate - Afr Amer 45 mL/min (>60); Globulin 4.4 g/dL (2.2-4.2); Glucose 155 mg/dL (74-106); Potassium 3.8 mmol/L (3.5-5.1); Protein, Total 8.2 g/dL (6.4-8.2); Sodium Level 137 mmol/L (136-145)
== END | disposition home or self-care (01) ==
LOC: LAB 14:14
PROVIDERS: PCP Student in an Organized Health Care Education/Training Program; Referring Provider Internal Medicine Endocrinology, Diabetes & Metabolism; Visit Provider Internal Medicine Endocrinology, Diabetes & Metabolism
DX: E20.9 Hypoparathyroidism, unspecified (principal)
CPT/HCPCS: 36415; 80053

== ENCOUNTER → 2023-10-26 | Outpatient (CLI) | payer OTHER, SELFPAY ==
--- NOTE | 2023-10-26 15:01 | ECHOD_ITS ---
Reason For Study: HTN Procedure This was a 2D Doppler, Color Flow transthoracic echocardiogram. Exam performed in department. Left Ventricle Mild concentric left ventricular hypertrophy. Normal LV size. The left ventricular ejection fraction is 65 %. No evidence for diastolic dysfunction. Right Ventricle Normal right ventricle. Atria The left atrium is mildly enlarged. Normal right atrium. Cannot rule out tiny PFO. Mitral Valve Trivial mitral valve insufficiency. Tricuspid Valve Trivial tricuspid valve insufficiency. Normal pulmonary artery pressure. Aortic Valve Trisinus/trileaflet aortic valve. Trivial aortic valve insufficiency. Pulmonic Valve The pulmonic valve is not well visualized. Trivial pulmonic valve insufficiency. Great Vessels Normal sized aortic root. Pericardium/Pleural No pericardial effusion. MMode/2D Measurements & Calculations LVIDd: 4.9 cm IVSd: 1.4 cm Ao root diam: 3.5 cm LVIDs: 2.7 cm LVPWd: 1.2 cm LA dimension: 4.3 cm RVDd: 4.0 cm FS: 45.5 % LAV(MOD-bp): 66.2 ml LVAd ap4: 29.1 cm2 SV(MOD-sp4): 55.8 ml LAV(MOD-bp) Indexed: 29.4 ml/m2 LVLd ap4: 8.1 cm LAV(MOD-sp2): 55.0 ml EDV(MOD-sp4): 85.5 ml LAV(MOD-sp4): 66.7 ml EDV(sp4-el): 88.6 ml LVAs ap4: 14.8 cm2 LVLs ap4: 6.2 cm ESV(MOD-sp4): 29.8 ml ESV(sp4-el): 29.9 ml EF(MOD-sp4): 65.2 % EF(sp4-el): 66.3 % SV(sp4-el): 58.7 ml LA A4 area: 21.7 cm2 RA A4 area: 17.7 cm2 TAPSE: 2.8 cm Time Measurements MV dec time: 0.16 sec Doppler Measurements & Calculations MV E max blane: 74.7 cm/sec Lat Peak E' Blane: 10.5 cm/sec Med Peak E' Blane: 9.0 cm/sec MV A max blane: 73.8 cm/sec E/E' lat: 7.1 E/E' med: 8.3 MV E/A: 1.0 MV V2 max: 99.0 cm/sec MV P1/2t max blane: 92.8 cm/sec Ao V2 max: 135.4 cm/sec MV max P.9 mmHg MV P1/2t: 61.2 msec Ao max P.3 mmHg MV V2 mean: 56.2 cm/sec MV dec slope: 444.3 cm/sec2 Ao V2 mean: 95.8 cm/sec MV mean P.5 mmHg Ao mean P.2 mmHg MV V2 VTI: 30.7 cm MVA(P1/2t): 3.6 cm2 Ao V2 VTI: 31.5 cm AV (velocity ratio): 0.80 LV V1 max: 108.9 cm/sec PA V2 max: 130.9 cm/sec TR max blane: 218.4 cm/sec LV V1 max P.7 mmHg PA max PG (full): 4.4 mmHg TR max P.1 mmHg LV V1 mean P.8 mmHg PA V2 mean: 88.2 cm/sec LV V1 mean: 79.0 cm/sec PA mean PG (full): 2.2 mmHg LV V1 VTI: 25.1 cm ECHO/Echo Complete Interpretation Summary Mild concentric left ventricular hypertrophy. The left ventricular ejection fraction is 65 %. The left atrium is mildly enlarged. Cannot rule out tiny PFO. Ordering Physician: Brendon Saenz Referring Physician: Brendon Saenz Performed By: Sandeep Gómez RCS
== END | disposition home or self-care (01) ==
LOC: CVS 14:59
PROVIDERS: PCP Student in an Organized Health Care Education/Training Program; Referring Provider Student in an Organized Health Care Education/Training Program; Visit Provider Student in an Organized Health Care Education/Training Program
DX: I10 Essential (primary) hypertension (principal); Q24.8 Other specified congenital malformations of heart
CPT/HCPCS: 93306

== ENCOUNTER → 2023-11-02 | Outpatient (CLI) | payer OTHER, SELFPAY ==
[2023-11-02 16:02] LABS: Albumin, Serum 3.7 g/dL (3.2-5.0); BUN 28 mg/dL (7-18); BUN/Creat Ratio 17.9 RATIO (10-20); Calcium,Total 9.3 mg/dL (8.5-10.1); Chloride 102 mmol/L (98-107); Creatinine, Serum 1.56 mg/dL (0.55-1.02); EST Glomerular Filtration Rate 37 mL/min (>60); Est Glom Filt Rate - Afr Amer 45 mL/min (>60); Glucose 115 mg/dL (74-106); Phosphorus 3.8 mg/dL (2.5-4.9); Potassium 4.5 mmol/L (3.5-5.1); Sodium Level 137 mmol/L (136-145)
[2023-11-02 16:15] LABS: Protein, Urine (Random) 22.2 mg/dL (<11.9); Protein:Creat Ratio 114 mg/g CRE (0-200)
== END | disposition home or self-care (01) ==
LOC: LAB 14:10
PROVIDERS: PCP Student in an Organized Health Care Education/Training Program; Referring Provider Internal Medicine Nephrology; Visit Provider Internal Medicine Nephrology
DX: N18.31 Chronic kidney disease, stage 3a (principal)
CPT/HCPCS: 36415; 80069; 82570; 84156

== ENCOUNTER → 2024-01-02 | Outpatient (CLI) | payer OTHER, SELFPAY ==
[2024-01-02 12:07] LABS: Albumin, Serum 3.5 g/dL (3.2-5.0); BUN 19 mg/dL (7-18); BUN/Creat Ratio 13.6 RATIO (10-20); Calcium,Total 8.7 mg/dL (8.5-10.1); Chloride 103 mmol/L (98-107); EST Glomerular Filtration Rate 42 mL/min (>60); Est Glom Filt Rate - Afr Amer 51 mL/min (>60); Glucose 129 mg/dL (74-106); Phosphorus 3.5 mg/dL (2.5-4.9); Potassium 3.9 mmol/L (3.5-5.1); Sodium Level 138 mmol/L (136-145)
[2024-01-02 12:16] LABS: Protein, Urine (Random) 48.1 mg/dL (<11.9); Protein:Creat Ratio 122 mg/g CRE (0-200)
== END | disposition home or self-care (01) ==
LOC: LAB 11:33
PROVIDERS: PCP Student in an Organized Health Care Education/Training Program; Visit Provider Internal Medicine Nephrology
DX: N18.31 Chronic kidney disease, stage 3a (principal)
CPT/HCPCS: 36415; 80069; 82570; 84156

== ENCOUNTER → 2024-02-18 | Outpatient (CLI) | payer OTHER, SELFPAY ==
[2024-02-18 11:33] LABS: ALB/GLOB Ratio 0.9 RATIO (0.9-2.4); AST(SGOT) 17 U/L (15-37); Alanine Aminotransfer ALT/SGPT 23 U/L (13-56); Albumin, Serum 3.6 g/dL (3.2-5.0); Alkaline Phosphatase 79 U/L (45-117); Anion Gap 6 (5-15); BUN 27 mg/dL (7-18); BUN/Creat Ratio 18.8 RATIO (10-20); Calcium,Total 9.5 mg/dL (8.5-10.1); Chloride 100 mmol/L (98-107); Creatinine, Serum 1.44 mg/dL (0.55-1.02); EST Glomerular Filtration Rate 41 mL/min (>60); Est Glom Filt Rate - Afr Amer 49 mL/min (>60); Globulin 4.2 g/dL (2.2-4.2); Glucose 137 mg/dL (74-106); Potassium 3.9 mmol/L (3.5-5.1); Protein, Total 7.8 g/dL (6.4-8.2); Sodium Level 135 mmol/L (136-145)
== END | disposition home or self-care (01) ==
PROVIDERS: PCP Student in an Organized Health Care Education/Training Program; Referring Provider Internal Medicine Endocrinology, Diabetes & Metabolism; Visit Provider Internal Medicine Endocrinology, Diabetes & Metabolism
DX: E20.9 Hypoparathyroidism, unspecified (principal)
CPT/HCPCS: 36415; 80053

== ENCOUNTER → 2024-03-21 | Outpatient (CLI) | payer OTHER, SELFPAY ==
[2024-03-21 14:42] LABS: Absolute Lymphocyte Count 1.76 X10^3/uL (0.83-4.51); Absolute Neutrophil Count 7.7 X10^3/uL (2.0-7.7); Basophil# 0.03 X10^3/uL; Basophil% 0.3 % (0-1); Eosinophil# 0.19 X10^3/uL; Eosinophils% 1.9 % (0-5); Hematocrit 34.3 % (37-47); Hemoglobin 11.2 g/dL (12.0-15.0); Lymphocyte # 1.76 X10^3/ul (0.83-4.51); Lymphocyte % 17.4 % (19-41); Mean Corp Hgb Conc 32.7 g/dL (32-36); Mean Corpuscular Hgb 29.7 pg (27.0-32.0); Mean Platelet Vol. 9.8 fl (6.2-12.0); Monocyte# 0.38 X10^3/uL; Monocyte% 3.8 % (0-10); NRBC Flagged by Analyzer 0 % (0-5); Neutrophil # 7.65 X10^3/uL (2.7-7.7); Neutrophil % 75.6 % (47-70); Platelet Count 308 K/mm3 (150-450); RBC Distribution Width CV 13.2 % (11.6-14.6); Red Blood Count 3.77 M/mm3 (4.2-5.4); White Blood Count 10.1 K/mm3 (4.4-11.0)
[2024-03-21 15:07] LABS: Vitamin B12 570 pg/mL (211-911); Vitamin D,25 Hydroxy 28.2 ng/mL
[2024-03-21 15:14] LABS: ALB/GLOB Ratio 0.8 RATIO (0.9-2.4); AST(SGOT) 15 U/L (15-37); Alanine Aminotransfer ALT/SGPT 25 U/L (13-56); Albumin, Serum 3.6 g/dL (3.2-5.0); Alkaline Phosphatase 82 U/L (45-117); Anion Gap 6 (5-15); BUN 25 mg/dL (7-18); BUN/Creat Ratio 15.5 RATIO (10-20); Calcium,Total 9.7 mg/dL (8.5-10.1); Chloride 104 mmol/L (98-107); Creatinine, Serum 1.61 mg/dL (0.55-1.02); EST Glomerular Filtration Rate 36 mL/min (>60); Est Glom Filt Rate - Afr Amer 43 mL/min (>60); Globulin 4.4 g/dL (2.2-4.2); Glucose 136 mg/dL (74-106); Iron 70 ug/dL (50-170); Iron Binding Capacity,Total 402 ug/dL (250-450); PERCENT IRON SATURATION 17.4 % (15.0-55.0); Potassium 3.8 mmol/L (3.5-5.1); Sodium Level 137 mmol/L (136-145); T4 Free Direct 1.07 ng/dL (0.76-1.46)
[2024-03-21 18:44] LABS: Hemoglobin A1c 6.4 % (3.8-5.6)
[2024-03-23 14:09] LABS: IgG, Quant 1630 mg/dL (586-1602); Immunoglobulin A 179 mg/dL (87-352); Immunoglobulin G, Subclass 1 851 mg/dL (248-810); Immunoglobulin G, Subclass 2 524 mg/dL (130-555); Immunoglobulin G, Subclass 3 96 mg/dL (15-102); Immunoglobulin G, Subclass 4 39 mg/dL (2-96); Immunoglobulin M 58 mg/dL (26-217)
== END | disposition home or self-care (01) ==
LOC: LAB 14:00
PROVIDERS: PCP Student in an Organized Health Care Education/Training Program; Referring Provider Student in an Organized Health Care Education/Training Program; Visit Provider Student in an Organized Health Care Education/Training Program
DX: J06.9 Acute upper respiratory infection, unspecified (principal); R49.0 Dysphonia; R53.83 Other fatigue; G47.9 Sleep disorder, unspecified
CPT/HCPCS: 36415; 80053; 82306; 82607; 82784; 82787; 83036; 83540; 83550; 84439; 84443; 84481; 85025

== ENCOUNTER → 2024-04-21 | Outpatient (CLI) | payer OTHER, SELFPAY | END | disposition home or self-care (01) | LOC: PSN 06:59 | PROVIDERS: PCP Student in an Organized Health Care Education/Training Program; Referring Provider Student in an Organized Health Care Education/Training Program; Visit Provider Student in an Organized Health Care Education/Training Program | DX: J06.9 Acute upper respiratory infection, unspecified (principal); J41.1 Mucopurulent chronic bronchitis; R49.0 Dysphonia | CPT/HCPCS: 94010; 94060 ==

== ENCOUNTER → 2024-05-09 | Outpatient (CLI) | payer OTHER, SELFPAY ==
[2024-05-09 11:58] LABS: Protein, Urine (Random) 18.3 mg/dL (<11.9); Protein:Creat Ratio 100 mg/g CRE (0-200)
[2024-05-09 12:05] LABS: Albumin, Serum 3.6 g/dL (3.2-5.0); BUN 23 mg/dL (7-18); BUN/Creat Ratio 16.9 RATIO (10-20); Calcium,Total 9.2 mg/dL (8.5-10.1); Chloride 102 mmol/L (98-107); Creatinine, Serum 1.36 mg/dL (0.55-1.02); EST Glomerular Filtration Rate 43 mL/min (>60); Est Glom Filt Rate - Afr Amer 52 mL/min (>60); Glucose 166 mg/dL (74-106); Phosphorus 3.3 mg/dL (2.5-4.9); Potassium 3.9 mmol/L (3.5-5.1); Sodium Level 137 mmol/L (136-145)
== END | disposition home or self-care (01) ==
LOC: LAB 10:52
PROVIDERS: PCP Student in an Organized Health Care Education/Training Program; Referring Provider Internal Medicine Nephrology; Visit Provider Internal Medicine Nephrology
DX: N18.31 Chronic kidney disease, stage 3a (principal)
CPT/HCPCS: 36415; 80069; 82570; 84156

== ENCOUNTER → 2024-09-12 | Outpatient (CLI) | payer OTHER, SELFPAY ==
[2024-09-12 14:56] LABS: Mucous, Urine 0 SEEN /hpf (<or=2+)
[2024-09-12 15:05] LABS: Color, Urine Yellow (Yellow); Glucose, Dipstick Normal (Normal); Ketone-Dipstick Negative (Negative); Leukocyte Esterase-Dipstick 25 /ul (Negative); Nitrite-Dipstick Negative (Negative); Occult Blood-Urine 10 /ul (Negative); Protein-Dipstick 15 mg/dl (Negative); Specific Gravity, Urine 1.025 (1.002-1.030); Urine Bilirubin Dipstick Negative (Negative); Urine Clarity Clear (Clear); Urine Urobilinogen Normal (Normal)
[2024-09-12 21:22] LABS: Amorphous Sediment 1+; Bacteria 3+ /hpf (None Seen); Calcium Oxalate Crystals Ur 1+ /hpf (<or=2+); Red Blood Cells-Urine 0-5 SEEN /hpf (0-5); Squamous Epithelial Cells - UA 5-10 SEEN /hpf (5-10); White Blood Cells 0-5 SEEN /hpf (0-5)
== END | disposition home or self-care (01) ==
LOC: LAB 14:12
PROVIDERS: PCP Student in an Organized Health Care Education/Training Program; Referring Provider Internal Medicine Endocrinology, Diabetes & Metabolism; Visit Provider Internal Medicine Endocrinology, Diabetes & Metabolism
DX: R30.0 Dysuria (principal)
CPT/HCPCS: 81001; 87086; 87088

== ENCOUNTER 2024-09-13 21:42 | Emergency (ER) | payer OTHER, SELFPAY ==
[2024-09-13 21:43] VITALS: BP 154/100; PULSE 92; RESP 26; TEMP 36.2; O2SAT 98; BMI 46.1
--- NOTE | 2024-09-13 22:27 | EDS_ITS ---
HPI History of Present Illness Chief Complaint: Flank Pain Informant: patient Narrative Narrative: 53-year-old female presenting to the emergency room with right flank right lower abdomen discomfort and urinary frequency. Patient states that last week she had an episode of flank pain that resolved within the day. She states that she had a urine specimen performed by Dr. Juares her heater mechanic. She states that she was started on Macrobid. That urinalysis demonstrated 5-10 squamous cells 3+ bacteria calcium oxalate crystals 0-5 whites. Patient states that today she developed the same pain in her right flank right lower abdomen described more as an ache. She notes some associated nausea but no vomiting. No fevers. She denies any dysuria during the active urination but discomfort otherwise. She notes urinary frequency about every 10 minutes. She has not noticed any blood in the urine. No bowel changes. Patient notes that she cannot find a position of comfort. [facility] Medical History Wears glasses History of renal disease Anemia Fatty liver Easy bruising Injury of head and neck History of edema Osteoarthritis of left knee Left knee pain Abnormal glucose YOEL (generalized anxiety disorder) Panic disorder Chronic bilateral low back pain without sciatica Rosacea Former smoker Essential hypertension Obesity Back pain Vitamin D deficiency Hypoparathyroidism Osteoarthritis HTN (hypertension) Low calcium levels Chronic headaches Anxiety Carpal tunnel syndrome Back problem Arthritis Seasonal allergies Home Medications ?Medication ?Instructions ?Recorded ?Last Taken ?Type calcium 600 mg capsule 600 mg PO BID 09/12/2109/11 History labetalol 100 mg tablet 100 mg PO TID 06/25/2308/04 09:00 History nifedipine 60 mg tablet,extended 60 mg PO QHS 07/31/23 Unknown History release spironolactone 25 mg tablet 25 mg PO QDAY 02/18/24 Unk nown History clonazepam 0.5 mg tablet 0.5 mg PO DAILY PRN anxiety 30 06/16/24 Unknown Rx days #30 tabs calcitriol 0.5 mcg capsule 0.5 mcg PO .qd, BID on #120 07/18/24 Unknown Rx caps desvenlafaxine succinate 50 mg 50 mg PO DAILY 30 days #30 tabs 09/07/24 Unknown Rx tablet,extended release 24 hr mirtazapine 30 mg tablet 30 mg PO QHS #30 tabs Unknown Rx nitrofurantoin 100 mg PO BID #10 caps 09/12 Unknown Rx monohydrate/macrocrystals 100 mg capsule (Macrobid) ondansetron 4 mg disintegrating 4 mg PO Q6H PRN PRN Na usea #15 tabs 09/14/24 Unknown Rx tablet oxycodone-acetaminophen 5 mg-325 1 tab PO Q6H PRN PRN pain 5 days 09/14/24 Unknown Rx mg tablet #20 TABLETS Allergy/AdvReac Type Severity Reaction Status Date / Time adhesive tape Allergy Intermediate Rash Verified 09/13/24 21:43 latex Allergy Mild rash Verified 09/13/24 21:43 Penicillins Allergy Shortness Verified 09/13/24 21:43 of breath citalopram (From Celexa) AdvReac Other Verified 09/13/24 21:43 Family History Brother Asthma Autoimmune disorder Diabetes Hypertension Kidney disease Mental disorder Mother Arthritis Blood clot in vein Diabetes Mental disorder Hyperlipidemia Grandmother Cancer Melanoma Grandfather Myocardial infarction Heart disease Hyperlipidemia Surgical History History of carpal tunnel surgery of left wrist Hx of colonoscopy S/P endometrial ablation History of adenoidectomy Social History household members: family and children current occupation: Works at [employer] Smoking Status: Former smoker pack-years: 6 how long ago did patient quit smokin years alcohol intake: never substance use type: does not use what type of physical activity do you participate in: none do you feel safe at home: Yes ROS ROS ED Constitutional Constitutional ED: Denies chills, fever(s) or weight loss Eyes Eyes: Denies change in vision or diplopia ENT ENT ED: Denies ear pain, rhinorrhea or sore throat Cardiovascular Cardiovascular: Denies chest pain, orthopnea, palpitations or racing heartbeat Respiratory/Chest Respiratory/Chest: Denies cough, dyspnea or orthopnea Gastrointestinal Gastrointestinal: Reports abdominal pain and nausea; Denies diarrhea or vomiting Genitourinary Genitourinary ED: Reports dysuria and urinary frequency; Denies hematuria Musculoskeletal Musculoskeletal: Reports back pain; Denies arthralgias or myalgias Integumentary Denies abscess or rash Neurologic Neurologic: Denies headache(s) or weakness Psychiatric Psychiatric: Denies anxiety, depression, suicidal ideation or suicidal thoughts Endocrine Endocrinology: Denies polydipsia, polyphagia or polyuria Allergic/Immunologic Allergic/Immunologic ED: Denies mouth swelling, tongue swelling or urticaria EXAM Physical Exam Const Vital Signs: 09/13/24 21:43 09/14/24 00:04 09/14/24 00:07 Temperature 97.2 F L Temperature Source Temporal Pulse Rate 92 67 Respiratory Rate 26 H 16 Blood Pressure 154/100 H 187/82 H 168/87 H Blood Pressure Mean 118 117 114 Pulse Ox 98 94 Oxygen Delivery Method Room Air 09/14/24 00:19 Temperature 98 F Temperature Source Pulse Rate 72 Respiratory Rate 16 Blood Pressure 176/84 H Blood Pressure Mean 114 Pulse Ox 94 Oxygen Delivery Method Positive well nourished and well developed General Appearance ED: well developed and NAD HEENT Reports normocephalic, head/scalp atraumatic and moist mucous membranes Eyes PERRL and EOMs intact bilaterally Neck no lymphadenopathy, supple and no JVD Resp normal respiratory effort and clear to auscultation bilaterally Cardio regular rate, regular rhythm and no murmurs GI normal to inspection, nondistended, normoactive bowel sounds and non-tender Palpation: soft Back/Spine normal ROM General Back: CVA tenderness right Extremity normal to inspection General Extremety ED: Negative for edema General Extremity: Negative for edema Neuro oriented x3 and CN's II-XII intact bilaterally Sensorium / Orientation: alert Motor Exam: strength 5/5 throughout Psych mental status grossly normal Mood & Affect: Negative for depressed or tearful Skin no rashes or lesions noted and no wounds MDM MDM MDM Narrative Medical decision making narrative: Follow-up with differential diagnosis includes but not limited to acute cystitis pyelonephritis ureterolithiasis renal infarct renal cyst biliary dysfunction liver dysfunction colitis Basic blood work shows a white count of 12.8 hemoglobin 11.9 platelet count 318. Urinalysis with 10-25 white blood cells 25-50 red blood cells 1+ bacteria negative nitrates positive leukocyte esterase. CT of the abdomen pelvis was obtained which demonstrates a 6 mm distal ureteral calculus with hydronephrosis and hydroureter. Noted cholelithiasis. Patient was treated with IV fluids Toradol and Zofran. She is resting more comfortably. I spoke with the patient. She can continue her Macrobid. I did recommend pain medicine and nausea medicine as needed. Following up with urology return if worsening or concerns. Patient is comfortable with this plan History & Record Review Discussion w/independent historian: Patient Additional record(s) reviewed:: Prior outpatient record, Prior ED visit and Prior labs Lab Data Attestation: I reviewed the patient's lab results. Labs: Laboratory Results - last 24 hr 09/13/24 09/13/24 21:53 22:30 WBC 12.4 H RBC 3.93 L Hgb 11.9 L Hct 35.6 L MCV 90.6 MCH 30.3 MCHC 33.4 RDW Std Deviation 43.0 RDW Coeff of Alex 12.9 Plt Count 318 MPV 10.3 Immature Gran % (Auto) 0.300 Neut % (Auto) 81.6 H Lymph % (Auto) 10.8 L [place] % (Auto) 4.9 Eos % (Auto) 2.1 Baso % (Auto) 0.3 Absolute Neuts (auto) 10.1 H Absolute Lymphs (auto) 1.33 Nucleated RBC % 0 Urine Color Yellow Urine Clarity Clear Urine pH 6.0 Ur Specific [place] 1.015 Urine Protein 30 H Urine Glucose (UA) Normal Urine Ketones Negative Urine Occult Blood 250 H Urine Nitrite Negative Urine Bilirubin Negative Urine Urobilinogen Normal Ur Leukocyte Esterase 25 H Urine RBC 25-50 SEEN Urine WBC 10-25 SEEN Ur Squamous Epith Cells 0-5 SEEN Urine Bacteria 1+ Urine Mucus 0 SEEN Urine Test Negative Radiography Diagnostic Testing: Clinical Impression(s) from Imaging Studies Abdomen/Pelvis CT 09/13/24 23:33 IMPRESSION: 6 mm distal right ureteral obstructing calculus with moderate hydroureteronephrosis and perinephric soft tissue stranding. Hepatic steatosis without focal lesion. Cholelithiasis. OVERALL FINAL ASSESSMENT: . LI-RADS is not meant to be used in patients <18 years or patients with cirrhosis due to congenital hepatic fibrosis or due to vascular disorders, because these patients have a lower chance of developing HCC. Reading Location: [facility] Discharge Plan Triage Chief Complaint: Flank Pain ED Provider: [place] Dx/Rx/DC Orders Clinical Impression: Acute flank pain, Ureterolithiasis, UTI (urinary tract infection) Instructions: ED Kidney Stone with Pain Prescriptions: New oxycodone-acetaminophen 5-325 mg tablet 1 tab PO Q6H PRN PRN (Reason: pain) 5 Days Qty: 20 0RF ondansetron 4 mg tablet,disintegrating 4 mg PO Q6H PRN PRN (Reason: Nausea) Qty: 15 0RF No Action labetalol 100 mg tablet 100 mg PO TID Patient Comments: take 1 tablet by mouth three times a day spironolactone 25 mg tablet 25 mg PO QDAY calcium 600 mg Capsule 600 mg PO BID nifedipine 60 mg tablet extended release 60 mg PO QHS clonazepam 0.5 mg tablet 0.5 mg PO DAILY PRN (Reason: anxiety) 30 Days Qty: 30 2RF calcitriol 0.5 mcg capsule 0.5 mcg PO .qd, BID on Qty: 120 2RF desvenlafaxine succinate 50 mg tablet extended release 24 hr 50 mg PO DAILY 30 Days Qty: 30 2RF mirtazapine 30 mg tablet 30 mg PO QHS Qty: 30 2RF nitrofurantoin monohyd/m-cryst [Macrobid] 100 mg capsule 100 mg PO BID Qty: 10 0RF Rx Instructions: must administer with a meal/food Primary Care Provider: Brendon Saenz Referrals: Brendon Saenz DO [Primary Care Provider] - Rayshawn Huntley MD [Med Staff - Active Staff] - As soon as possible (for urology ) Print Language: Romanian Disposition Disposition: Home, Self Care Discharge Date/Time: 09/14/24 00:27
[2024-09-13] MEDS: Ondansetron 4 MG/2 ML Vial IV (22:36)
[2024-09-13] MEDS: 0.9% Normal Saline (1000mL) 1,000 ML 250 ML IV (22:36)
[2024-09-13] MEDS: Ketorolac 30 MG/ML Syringe IV (22:36)
[2024-09-13 22:37] LABS: Mucous, Urine 0 SEEN /hpf (<or=2+)
[2024-09-13 22:50] LABS: Color, Urine Yellow (Yellow); Glucose, Dipstick Normal (Normal); Ketone-Dipstick Negative (Negative); Leukocyte Esterase-Dipstick 25 /ul (Negative); Nitrite-Dipstick Negative (Negative); Occult Blood-Urine 250 /ul (Negative); Protein-Dipstick 30 mg/dl (Negative); Specific Gravity, Urine 1.015 (1.002-1.030); Urine Bilirubin Dipstick Negative (Negative); Urine Clarity Clear (Clear); Urine Urobilinogen Normal (Normal)
[2024-09-13 22:50] LABS: Absolute Lymphocyte Count 1.33 X10^3/uL (0.83-4.51); Absolute Neutrophil Count 10.1 X10^3/uL (2.0-7.7); Basophil# 0.04 X10^3/uL; Basophil% 0.3 % (0-1); Eosinophil# 0.26 X10^3/uL; Eosinophils% 2.1 % (0-5); Hematocrit 35.6 % (37-47); Hemoglobin 11.9 g/dL (12.0-15.0); Lymphocyte # 1.33 X10^3/ul (0.83-4.51); Lymphocyte % 10.8 % (19-41); Mean Corp Hgb Conc 33.4 g/dL (32-36); Mean Corpuscular Hgb 30.3 pg (27.0-32.0); Mean Corpuscular Volume 90.6 fL (81-99); Mean Platelet Vol. 10.3 fl (6.2-12.0); Monocyte% 4.9 % (0-10); NRBC Flagged by Analyzer 0 % (0-5); Neutrophil # 10.09 X10^3/uL (2.7-7.7); Neutrophil % 81.6 % (47-70); Platelet Count 318 K/mm3 (150-450); RBC Distribution Width CV 12.9 % (11.6-14.6); Red Blood Count 3.93 M/mm3 (4.2-5.4); White Blood Count 12.4 K/mm3 (4.4-11.0)
[2024-09-13 23:27] LABS: Bacteria 1+ /hpf (None Seen); Red Blood Cells-Urine 25-50 SEEN /hpf (0-5); Squamous Epithelial Cells - UA 0-5 SEEN /hpf (5-10); White Blood Cells 10-25 SEEN /hpf (0-5)
[2024-09-13 23:28] LABS: Internal QC Validated? YES +Cl - CLEAR BKGD; Pregnancy, Urine Negative Negative
--- NOTE | 2024-09-13 23:33 | CT_ITS ---
PROCEDURE: ABDOMEN/PELVIS WITHOUT CONT 09/13/2024 REASON FOR EXAM: KIDNEY STONE TECHNIQUE: Abdomen and pelvis CT without intravenous contrast. Noncontrast technique limits evaluation of the abdominal and pelvic viscera. Coronal and Sagittal reconstruction series were provided. One or more dose reduction techniques were used (e.g., Automated exposure control, adjustment of the mA and/or kV according to patient size, use of iterative reconstruction technique). PATIENT PREPARATION: Per protocol ORAL CONTRAST TYPE: None. AMOUNT: mL COMPARISON: None FINDINGS: Lung bases: Bibasilar atelectasis. Liver: Hepatic steatosis. No focal lesion. Gallbladder: No ductal dilation. Cholelithiasis. No wall thickening or pericholecystic fluid. Spleen: Normal size. Pancreas: Normal size. No surrounding inflammation. Adrenals: Normal Kidneys: 6 mm distal right ureteral obstructing calculus (series 601 image 95), with moderate hydroureteronephrosis and perinephric soft tissue stranding. No left calculi or hydronephrosis. Bladder: Urinary bladder is unremarkable. Reproductive Organs: No pelvic mass. Bowel: Stomach is unremarkable. No bowel dilation or wall thickening. Moderate colonic stool. Appendix: Normal appendix. Lymph nodes: 10 mm aortocaval node (series 2 image 77) otherwise, no suspicious abdominopelvic adenopathy. Vasculature: The abdominal aorta and IVC contours are normal. Noncontrast technique limits evaluation. Peritoneum / Retroperitoneum: No ascites. No pneumoperitoneum. Bones: Unremarkable. Soft tissue: Mild subcutaneous edema. CT/Abdomen/Pelvis without Cont IMPRESSION: 6 mm distal right ureteral obstructing calculus with moderate hydroureteronephr osis and perinephric soft tissue stranding. Hepatic steatosis without focal lesion. Cholelithiasis. OVERALL FINAL ASSESSMENT: . LI-RADS is not meant to be used in patients <18 years or patients with cirrhosi s due to congenital hepatic fibrosis or due to vascular disorders, because these patients have a lower chance of developing HC C. Reading Location: [facility]
[2024-09-14 00:04] VITALS: BP 187/82; PULSE 67; RESP 16; O2SAT 94
[2024-09-14 00:07] VITALS: BP 168/87
[2024-09-14 00:19] VITALS: BP 176/84; PULSE 72; RESP 16; TEMP 36.6; O2SAT 94
== END 2024-09-14 00:27 | disposition home or self-care (01) ==
PROVIDERS: Emergency Provider Emergency Medicine; PCP Student in an Organized Health Care Education/Training Program; Visit Provider Emergency Medicine
DX: N13.6 Pyonephrosis (principal); R35.0 Frequency of micturition; Z87.891 Personal history of nicotine dependence; I10 Essential (primary) hypertension; K80.20 Calculus of gallbladder without cholecystitis without obstruction; R10.9 Unspecified abdominal pain
CPT/HCPCS: 74176; 81001; 81025; 85025; 99283; A4216; J2405

== ENCOUNTER 2024-09-22 08:00 | Day surgery (SDC) | payer OTHER, SELFPAY ==
--- NOTE | 2024-09-20 15:41 | PAT.ANE_ITS ---
Pre-Assessment Diagnosis/Proposed Procedure Planned Operative Procedure(s): (R) Cysto, Right ureteroscopy laser lithotripsy, stone basket extraction, right ureteral stent insertion Anesthesia History Anesthesia History - staff internist office based only: Anesthesia History - staff internist office based only Hx Hospitalization No 09/20/24 14:39 Any Problems With Anesthesia Yes: HARD TIME BREATHING 09/20/24 14:39 WITH CTR Cholinesterase deficiency No 09/20/24 14:39 You/Your Family Experience No 09/20/24 14:39 fever (hyperthermia) with Relationship Recent Exposure to Contagious No 08/05/23 10:50 Disease Does patient have nerve No 09/20/24 14:39 stimulator Patient instructed to have device shut off --Does patient have Pacemaker or ICD? When Was Last Pacemaker Check QUESTION #4 FULL TEXT: You/Your Family Experience fever (hyperthermia) with Anesthesia Last Oral Intake Last Oral intake: Last Oral Intake NPO since Meds taken in AM with sips of water? 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 PONV - staff internist office based only: PONV - staff internist office based only Female Yes 09/20/24 14:39 HX of Motion Sickness No 09/20/24 14:39 HX of N/V After Surgery No 09/20/24 14:39 Non-Smoker Yes 09/20/24 14:39 Duration of Surgery greater No 09/20/24 14:39 than 60 minutes Number of Risk Factors 2 09/20/24 14:39 PONV Score Moderate Risk 09/20/24 14:39 Height & Weight Height & Weight: Anesthesia: Height & Weight Height 5 ft 5 in 09/13/24 21:43 Respiratory Assessment Respiratory Assessment - staff internist office based only: Respiratory Tract Infection Hx - staff internist office based only Hx Respiratory Tract Infection No 09/20/24 14:39 STOP Sleep Apnea STOP Sleep Apnea - staff internist office based only: STOP Sleep Apnea - staff internist office based only Hx Hypertension Yes: CONTROLLED ON MED 09/20/24 14:39 Hx Sleep Apnea No 09/20/24 14:39 CPAP BIPAP Do you snore loudly (louder No 09/20/24 14:39 than talking or can be heard Do you often feel tired/ No 09/20/24 14:39 fatigued/ sleepy during daytime? Has anyone observed you stop No 09/20/24 14:39 breathing during sleep? STOP Results Negative 09/20/24 14:39 QUESTION #5 FULL TEXT : Do you snore loudly (louder than talking or can be heard through closed doors)? 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 Specify any problems Hx of Preganancy in last 3 No 09/20/24 14:39 Months Nurse Filling Out Transfusion VCHRISTIN 09/20/24 14:39 & Questions: Date: 09/20/24 09/20/24 14:39 Time: 14:40 09/20/24 14:39 Patient unable to answer at this time (ie. confused, unrespo /Reproduction History /Reproductive History - staff internist office based only: /Reproductive Hx- staff internist office based only Hx Now No 09/20/24 14:39 Gestational Age (in weeks): EDC: Hx Hx Para Hx Section SAB No 09/20/24 14:39 [facility] Medical History (Updated 09/20/24 @ 14:37 by Adela Moran) History of echocardiogram Wears glasses History of renal disease Anemia Fatty liver Easy bruising Injury of head and neck History of edema Osteoarthritis of left knee Left knee pain Abnormal glucose YOEL (generalized anxiety disorder) Panic disorder Chronic bilateral low back pain without sciatica Rosacea Former smoker Essential hypertension Obesity Back pain Vitamin D deficiency Hypoparathyroidism Osteoarthritis HTN (hypertension) Low calcium levels Chronic headaches Anxiety Carpal tunnel syndrome Back problem Arthritis Seasonal allergies Home Medications ?Medication ?Instructions ?Recorded ?Last Taken ?Type calcium 600 mg capsule 600 mg PO BID 09/12/2109/11 History nifedipine 60 mg tablet,extended 60 mg PO QHS 07/31/23 Unknown History release spironolactone 25 mg tablet 25 mg PO QDAY 02/18/24 Unk nown History clonazepam 0.5 mg tablet 0.5 mg PO DAILY PRN anxiety 30 06/16/24 Unknown Rx days #30 tabs calcitriol 0.5 mcg capsule 0.5 mcg PO .qd, BID on -- #120 07/18/24 Unknown Rx caps desvenlafaxine succinate 50 mg 50 mg PO DAILY 30 days #30 tabs 09/07/24 Unknown Rx tablet,extended release 24 hr mirtazapine 30 mg tablet 30 mg PO QHS #30 tabs Unknown Rx ondansetron 4 mg disintegrating 4 mg PO Q6H PRN PRN Na usea #15 tabs 09/14/24 Unknown Rx tablet oxycodone-acetaminophen 5 mg-325 1 tab PO Q6H PRN PRN pain 5 days 09/14/24 Unknown Rx mg tablet #20 TABLETS labetalol 200 mg tablet 200 mg PO TID 09/20/24 Unkno wn History losartan 100 mg tablet 100 mg PO DAILY 09/20/24 Unk nown History phenazopyridine 200 mg tablet 200 mg PO TID 09/20/24 U nknown History tamsulosin 0.4 mg capsule 0.4 mg PO DAILY 09/20/24 Unk nown History Allergy/AdvReac Type Severity Reaction Status Date / Time adhesive tape Allergy Intermediate Rash Verified 09/20/24 14:30 latex Allergy Mild rash Verified 09/20/24 14:30 Penicillins Allergy Shortness Verified 09/20/24 14:30 of breath citalopram (From Celexa) AdvReac Other Verified 09/20/24 14:30 Family History Brother Asthma Autoimmune disorder Diabetes Hypertension Kidney disease Mental disorder Mother Arthritis Blood clot in vein Diabetes Mental disorder Hyperlipidemia Grandmother Cancer Melanoma Grandfather Myocardial infarction Heart disease Hyperlipidemia Surgical History History of carpal tunnel surgery of left wrist Hx of colonoscopy S/P endometrial ablation History of adenoidectomy Social History household members: family and children current occupation: Works at [employer] Smoking Status: Former smoker pack-years: 6 how long ago did patient quit smokin years alcohol intake: never substance use type: does not use what type of physical activity do you participate in: none do you feel safe at home: Yes Audit: Pertinent Findings Pertinent Findings EKG Perinent findings: 09/12/2021. Sinus rhythm with sinus arrhythmia. First- degree AV block. Nonspecific T wave abnormality. Poor R wave progression. Echo (EF%) pertinent findings: 10/26/2023. EF 65%. Cannot rule out tiny PFO. Additional pertinent findings: Patient did take GLP-1 yesterday. Recommended to wait [address] Jean-Baptiste says that this is urgent due to possibility of infection. So patient will need to be intubated due to risk of aspiration. Recommendation Anesthesia Recommendation Anesthesia recommendation: OPTIMIZED for anesthesia
--- NOTE | 2024-09-20 15:47 | PAT.ANE_ITS ---
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 When Was Last Pacemaker Check QUESTION #4 FULL TEXT: You/Your Family Experience fever (hyperthermia) with Anesthesia Last Oral Intake Last Oral intake: Last Oral Intake NPO since Meds taken in AM with sips of water? 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 Female Yes 09/20/24 14:39 HX of Motion Sickness No 09/20/24 14:39 HX of N/V After Surgery No 09/20/24 14:39 Non-Smoker Yes 09/20/24 14:39 Duration of Surgery greater No 09/20/24 14:39 than 60 minutes Number of Risk Factors 2 09/20/24 14:39 PONV Score Moderate Risk 09/20/24 14:39 Height & Weight Height & Weight: Anesthesia: Height & Weight Height 5 ft 5 in 09/13/24 21:43 Respiratory Assessment Respiratory Assessment - fur cutting machine operator: Respiratory Tract Infection Hx - 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 Has anyone observed you stop No 09/20/24 14:39 breathing during sleep? STOP Results Negative 09/20/24 14:39 QUESTION #5 FULL TEXT : Do you snore loudly (louder than talking or can be heard through closed doors)? 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 Specify any problems Hx of Preganancy in last 3 No 09/20/24 14:39 Months Nurse Filling Out Transfusion VCHRISTIN 09/20/24 14:39 & Questions: Date: 09/20/24 09/20/24 14:39 Time: 14:40 09/20/24 14:39 Patient unable to answer at this time (ie. 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 Hx Now No 09/20/24 14:39 Gestational Age (in weeks): EDC: Hx Hx Para Hx Section SAB No 09/20/24 14:39 [facility] Medical History (Updated 09/20/24 @ 14:37 by Adela Moran) History of echocardiogram Wears glasses History of renal disease Anemia Fatty liver Easy bruising Injury of head and neck History of edema Osteoarthritis of left knee Left knee pain Abnormal glucose YOEL (generalized anxiety disorder) Panic disorder Chronic bilateral low back pain without sciatica Rosacea Former smoker Essential hypertension Obesity Back pain Vitamin D deficiency Hypoparathyroidism Osteoarthritis HTN (hypertension) Low calcium levels Chronic headaches Anxiety Carpal tunnel syndrome Back problem Arthritis Seasonal allergies Home Medications ?Medication ?Instructions ?Recorded ?Last Taken ?Type calcium 600 mg capsule 600 mg PO BID 09/12/2109/11 History nifedipine 60 mg tablet,extended 60 mg PO QHS 07/31/23 Unknown History release spironolactone 25 mg tablet 25 mg PO QDAY 02/18/24 Unk nown History clonazepam 0.5 mg tablet 0.5 mg PO DAILY PRN anxiety 30 06/16/24 Unknown Rx days #30 tabs calcitriol 0.5 mcg capsule 0.5 mcg PO .qd, BID on -- #120 07/18/24 Unknown Rx caps desvenlafaxine succinate 50 mg 50 mg PO DAILY 30 days #30 tabs 09/07/24 Unknown Rx tablet,extended release 24 hr mirtazapine 30 mg tablet 30 mg PO QHS #30 tabs Unknown Rx ondansetron 4 mg disintegrating 4 mg PO Q6H PRN PRN Na usea #15 tabs 09/14/24 Unknown Rx tablet oxycodone-acetaminophen 5 mg-325 1 tab PO Q6H PRN PRN pain 5 days 09/14/24 Unknown Rx mg tablet #20 TABLETS labetalol 200 mg tablet 200 mg PO TID 09/20/24 Unkno wn History losartan 100 mg tablet 100 mg PO DAILY 09/20/24 Unk nown History phenazopyridine 200 mg tablet 200 mg PO TID 09/20/24 U nknown History tamsulosin 0.4 mg capsule 0.4 mg PO DAILY 09/20/24 Unk nown History Allergy/AdvReac Type Severity Reaction Status Date / Time adhesive tape Allergy Intermediate Rash Verified 09/20/24 14:30 latex Allergy Mild rash Verified 09/20/24 14:30 Penicillins Allergy Shortness Verified 09/20/24 14:30 of breath citalopram (From Celexa) AdvReac Other Verified 09/20/24 14:30 Family History Brother Asthma Autoimmune disorder Diabetes Hypertension Kidney disease Mental disorder Mother Arthritis Blood clot in vein Diabetes Mental disorder Hyperlipidemia Grandmother Cancer Melanoma Grandfather Myocardial infarction Heart disease Hyperlipidemia Surgical History History of carpal tunnel surgery of left wrist Hx of colonoscopy S/P endometrial ablation History of adenoidectomy Social History household members: family and children current occupation: Works at [employer] Smoking Status: Former smoker pack-years: 6 how long ago did patient quit smokin years alcohol intake: never substance use type: does not use what type of physical activity do you participate in: none do you feel safe at home: Yes Audit: Pertinent Findings HISTORY of Pertinent Findings History of Pertinent Findings: EKG Pertinent Findings EKG Perinent findings 09/12/2021. Sinus rhythm 09/20/24 15:46 with sinus arrhythmia. First-degree AV block. Nonspecific T wave abnormality. Poor R wave progression. Echo Pertinent Findings Echo (EF%) pertinent findings 10/26/2023. EF 65%. Cannot 09/20/24 15:46 rule out tiny PFO. Additional Pertinent Findings Additional pertinent findings Patient did take GLP-1 09/20/24 15:46 yesterday. Recommended to wait [address] Jean-Baptiste says that this is urgent due to possibility of infection. So patient will need to be intubated due to risk of aspiration. Pertinent Findings Additional pertinent findings: On additional findings. Patient is not on GLP-1. Therefore intubation is not necessary from that standpoint. Recommendation Anesthesia Recommendation Anesthesia recommendation: OPTIMIZED for anesthesia
[2024-09-22] VITALS (9 sets, daily range): BP systolic 106–140; BP diastolic 60–85; PULSE 58–81; RESP 16–18; TEMP 2.4–37.3; O2SAT 90–98; BMI 44.9
--- NOTE | 2024-09-22 08:13 | PCM.PRE.AN2 ---
ASA Classification* ASA Classification ASA Classification: 2 Assessment & Plan Anesthesia* Anesthesia Assessment Anesthesia Assessment: Discussed sedation and/or anesthesia options, risks, benefits, and alternatives with patient/parents/legal guardian/POA. Questions invited. The patient/parents/legal guardian/POA seems to understand and agrees to proceed with anesthesia plan. Reviewed the physical assessment, medical history, allergy history and patient home medications list prior to surgery/procedure/anesthetic and documented any changes. Performed airway and anesthesia risk assessments. Anesthesia Type Anesthesia Type: General Anesthesia Focused Assessment* Airway Assessment Mouth opens: >3 cm Mallampati Score: II Focused Labs Anesthesia Preop lab: CBC WBC 12.4 K/mm3 (4.4-11.0) H 09/13/24 21:53 09/13/24 RBC 3.93 M/mm3 (4.2-5.4) L 09/13/24 21:53 09/13/24 Hgb 11.9 g/dL (12.0-15.0) L 09/13/24 21:53 09/13/24 Hct 35.6 % (37-47) L 09/13/24 21:53 09/13/24 Plt Count 318 K/mm3 (150-450) 09/13/24 21:53 09/13/24 CHEMISTRY Potassium 3.9 mmol/L (3.5-5.1) 05/09/24 10:54 05/09/24 Sodium 137 mmol/L (136-145) 05/09/24 10:54 05/09/24 Magnesium 2.0 mg/dL (1.6-2.6) 09/16/22 13:46 09/16/22 Phosphorus 3.3 mg/dL (2.5-4.9) 05/09/24 10:54 05/09/24 BUN 23 mg/dL (7-18) H 05/09/24 10:54 05/09/24 Creatinine 1.36 mg/dL (0.55-1.02) H 05/09/24 10:54 05/09/24 Glucose 166 mg/dL (74-106) H 05/09/24 10:54 05/09/24 TSH 2.580 uIU/mL (0.358-3.740) 03/21/24 14:06 03/21/24 COAG Urine Test Negative Negative 09/13/24 22:30 09/13/24 [facility] Negative 03/21/21 17:05 03/21/21 Pre-Assessment Diagnosis/Proposed Procedure Planned Operative Procedure(s): (R) Cysto, Right ureteroscopy laser lithotripsy, stone basket extraction, right ureteral stent insertion Anesthesia History 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 When Was Last Pacemaker Check QUESTION #4 FULL TEXT: You/Your Family Experience fever (hyperthermia) with Anesthesia Last Oral Intake Last Oral intake: Last Oral Intake NPO since Meds taken in AM with sips of water? 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 Female Yes 09/20/24 14:39 HX of Motion Sickness No 09/20/24 14:39 HX of N/V After Surgery No 09/20/24 14:39 Non-Smoker Yes 09/20/24 14:39 Duration of Surgery greater No 09/20/24 14:39 than 60 minutes Number of Risk Factors 2 09/20/24 14:39 PONV Score Moderate Risk 09/20/24 14:39 Height & Weight Height & Weight: Anesthesia: Height & Weight Height 5 ft 5 in 09/13/24 21:43 Respiratory Assessment Respiratory Assessment - human resources benefits administrator: Respiratory Tract Infection Hx - human resources benefits administrator Hx Respiratory Tract Infection No 09/20/24 14:39 STOP Sleep Apnea STOP Sleep Apnea - human resources benefits administrator: STOP Sleep Apnea - human resources benefits administrator Hx Hypertension Yes: CONTROLLED ON MED 09/20/24 14:39 Hx Sleep Apnea No 09/20/24 14:39 CPAP BIPAP Do you snore loudly (louder No 09/20/24 14:39 than talking or can be heard Do you often feel tired/ No 09/20/24 14:39 fatigued/ sleepy during daytime? Has anyone observed you stop No 09/20/24 14:39 breathing during sleep? STOP Results Negative 09/20/24 14:39 QUESTION #5 FULL TEXT : Do you snore loudly (louder than talking or can be heard through closed doors)? 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 Specify any problems Hx of Preganancy in last 3 No 09/20/24 14:39 Months Nurse Filling Out Transfusion VCHRISTIN 09/20/24 14:39 & Questions: Date: 09/20/24 09/20/24 14:39 Time: 14:40 09/20/24 14:39 Patient unable to answer at this time (ie. confused, unrespo /Reproduction History /Reproductive History - human resources benefits administrator: /Reproductive Hx- human resources benefits administrator Hx Now No 09/20/24 14:39 Gestational Age (in weeks): EDC: Hx Hx Para Hx Section SAB No 09/20/24 14:39 Active Medications Active Medications: Current Medications Generic Name Dose Route Start Last Admin Trade Name Freq PRN Reason Stop Dose Admin Ciprofloxacin 400 mg in 200 mls @ 200 mls/hr 09/22/24 09:35 Cipro IV 09/22/24 10:34 PREOP ONE Lactated Ringer's 1,000 mls @ 15 mls/hr 09/22/24 08:15 IV .Q48H RANDY PFSH Medical History History of echocardiogram Wears glasses History of renal disease Anemia Fatty liver Easy bruising Injury of head and neck History of edema Osteoarthritis of left knee Left knee pain Abnormal glucose YOEL (generalized anxiety disorder) Panic disorder Chronic bilateral low back pain without sciatica Rosacea Former smoker Essential hypertension Obesity Back pain Vitamin D deficiency Hypoparathyroidism Osteoarthritis HTN (hypertension) Low calcium levels Chronic headaches Anxiety Carpal tunnel syndrome Back problem Arthritis Seasonal allergies Home Medications ?Medication ?Instructions ?Recorded ?Last Taken ?Type calcium 600 mg capsule 600 mg PO BID 09/12/21 09/11/21 History nifedipine 60 mg tablet,extended 60 mg PO QHS 07/31/23 Unknown History release spironolactone 25 mg tablet 25 mg PO QDAY 02/18/24 Unknown History clonazepam 0.5 mg tablet 0.5 mg PO DAILY PRN anxiety 30 06/16/24 Unknown Rx days #30 tabs calcitriol 0.5 mcg capsule 0.5 mcg PO .qd, BID on #120 07/18/24 Unknown Rx caps desvenlafaxine succinate 50 mg 50 mg PO DAILY 30 days #30 tabs 09/07/24 Unknown Rx tablet,extended release 24 hr mirtazapine 30 mg tablet 30 mg PO QHS #30 tabs 09/07/24 Unknown Rx ondansetron 4 mg disintegrating 4 mg PO Q6H PRN PRN Nausea #15 tabs 09/14/24 Unknown Rx tablet oxycodone-acetaminophen 5 mg-325 1 tab PO Q6H PRN PRN pain 5 days 09/14/24 Unknown Rx mg tablet #20 TABLETS labetalol 200 mg tablet 200 mg PO TID 09/20/24 Unknown History losartan 100 mg tablet 100 mg PO DAILY 09/20/24 Unknown History phenazopyridine 200 mg tablet 200 mg PO TID 09/20/24 Unknown History tamsulosin 0.4 mg capsule 0.4 mg PO DAILY 09/20/24 Unknown History Allergy/AdvReac Type Severity Reaction Status Date / Time adhesive tape Allergy Intermediate Rash Verified 09/20/24 14:30 latex Allergy Mild rash Verified 09/20/24 14:30 Penicillins Allergy Shortness Verified 09/20/24 14:30 of breath citalopram (From Celexa) AdvReac Other Verified 09/20/24 14:30 Family History Brother Asthma Autoimmune disorder Diabetes Hypertension Kidney disease Mental disorder Mother Arthritis Blood clot in vein Diabetes Mental disorder Hyperlipidemia Grandmother Cancer Melanoma Grandfather Myocardial infarction Heart disease Hyperlipidemia Surgical History History of carpal tunnel surgery of left wrist Hx of colonoscopy S/P endometrial ablation History of adenoidectomy Social History household members: family and children current occupation: Works at [employer] Smoking Status: Former smoker pack-years: 6 how long ago did patient quit smokin years alcohol intake: never substance use type: does not use what type of physical activity do you participate in: none do you feel safe at home: Yes Review of Systems (Anesthesia) ROS Narrative System reviewed and no additional complaints, except as documented.
[2024-09-22] MEDS: Lactated Ringers 1,000 ML 15 ML IV (08:46)
[2024-09-22 09:07] LABS: Internal QC Validated? YES +Cl - CLEAR BKGD; Pregnancy, Urine Negative Negative
[2024-09-22] MEDS: Ciprofloxacin 400 MG/200 ML BAG 200 MG IV (10:21)
--- NOTE | 2024-09-22 10:40 | DCINST_ITS ---
Discharge Instructions Diet Discharge Diet: No restrictions Activity Discharge Activity: Return to Normal Activity Dressing / Incision Call your doctor if you observe: Fever of 101 or Higher, Inability to urinate and Inability to have a bowel movement Follow Up Care Please Follow Up With: Latesha Cardenas MD When: The office will call her to make follow-up arrangements. Test Results: Test results from this visit will be discussed in further detail at your follow- up appointment, if applicable. Discharge Plan Admission Attending Provider: Latesha Cardenas Primary Care Provider: Brendon Saenz Instructions Print Language: Belarusian Discharge Orders/Prescriptions Prescriptions: Continued spironolactone 25 mg tablet 25 mg PO QDAY calcium 600 mg Capsule 600 mg PO BID nifedipine 60 mg tablet extended release 60 mg PO QHS oxycodone-acetaminophen 5-325 mg tablet 1 tab PO Q6H PRN PRN (Reason: pain) 5 Days Qty: 20 0RF ondansetron 4 mg tablet,disintegrating 4 mg PO Q6H PRN PRN (Reason: Nausea) Qty: 15 0RF labetalol 200 mg tablet 200 mg PO TID losartan 100 mg tablet 100 mg PO DAILY phenazopyridine 200 mg tablet 200 mg PO TID clonazepam 0.5 mg tablet 0.5 mg PO DAILY PRN (Reason: anxiety) 30 Days Qty: 30 2RF calcitriol 0.5 mcg capsule 0.5 mcg PO .qd, BID on Qty: 120 2RF desvenlafaxine succinate 50 mg tablet extended release 24 hr 50 mg PO DAILY 30 Days Qty: 30 2RF mirtazapine 30 mg tablet 30 mg PO QHS Qty: 30 2RF Discontinued tamsulosin 0.4 mg capsule 0.4 mg PO DAILY Referrals / Follow Up: Brendon Saenz DO [Primary Care Provider] - Disposition Disposition (needs filled in before D/C Order can be placed): Home, Self Care
--- NOTE | 2024-09-22 10:48 | PCM.POST.ANE ---
Anesthesia: Postop Eval I Current Vital Signs Temperature: 36.4 F Pulse Rate: 64 Blood Pressure: 106/66 Respiratory Rate: 18 Pulse Ox: 92 Oxygen Delivery Method: Nasal Cannula Oxygen Flow Rate (L/min): 2 Assessment Airway patent: Yes Spontaneous unlabored respirations: Yes Mental status: Awake nausea: No Vomiting: No Anesthesia Complication: No Fluid Hydration Crystalloid volume administer (ml): 1,000 Total IV fluid infused: 1,000 Progress Note Anesthesia document: Postop Eval 1 completed: Yes
--- NOTE | 2024-09-22 10:49 | PCM.OPRPT ---
Operative Report (Standard) Operative Information Date of Procedure: 09/22/24 Pre-Operative Diagnosis: Right ureteral calculus Post-Operative Diagnosis: Same, passed Surgery/Procedure Performed: Cystoscopy, right ureteroscopy bookkeeper assistant: No Type of Anesthesia: General RN Documented Start/Stop Times: Operation Date: 09/22/24 09:35 Case Time Into Pre-Op 09/22/24 08:08 Out of Pre-Op 09/22/24 10:04 Anesthesia Start 09/22/24 10:08 Into Room 09/22/24 10:08 Procedure Start 09/22/24 10:24 Procedure End 09/22/24 10:32 Anesthesia End 09/22/24 10:42 Out of Room 09/22/24 10:42 Procedure Start Time: 10:24 Procedure Stop Time: 10:32 Select all DRAINS/GRAFTS/IMPLANTS that apply: None Estimated Blood Loss: <5cc Specimen collected: No Description of surgery: The patient is a 53-year-old female with an obstructing right distal ureteral calculus who presents for surgical intervention. Informed consent was obtained. She was taken to the operating room and placed on the operating room table. Anesthesia monitored the head, neck, airway, IV access and vital signs throughout the case. Once anesthesia was appropriately administered, she was placed into dorsolithotomy position and was prepped and draped in usual sterile fashion. The cystoscope was inserted through the urethra under direct visualization into the urinary bladder. The bladder mucosa in its entirety was visualized. The mucosa on the area of the trigone surrounding the right ureteral orifice was significantly edematous and irritated. The remainder of the bladder appeared within normal limits. Her bladder size was significant. The right ureter was intubated gently with a 0.035 Glidewire. This advanced all the way into the renal pelvis is seen on fluoroscopy. The semirigid ureteroscope was then utilized to cannulate the distal right ureter and it advanced easily all the way up to the renal pelvis without evidence of mass, erythema or stone. The ureter was significantly dilated consistent with a recent distal ureteral calculus. At this time the ureteroscope and the Glidewire were removed. She was awakened and taken to the recovery room in good condition. There were no complications during the procedure. Surgical Findings: Stone had passed, ureter was dilated no other abnormal findings Complications Complications: No Admit VTE Documentation VTE Present on Admission: Yes VTE Mechan Device Prophylaxis: SCD's VTE Pharm Prophylaxis ordered?: No Reason prophylaxis not ordered: Treatment Not Indicated
--- NOTE | 2024-09-22 13:03 | POSTOPAN2_ITS ---
Anesthesia Postop Eval I Sum Postop Eval Completion status Anesthesia document: Postop Eval 1 completed: Yes Anesthesia Postop Eval I Summary Anesthesia Postop Eval I Summary: Anesthesia Postop Eval I: Assessment Summary Airway patent Yes 09/22/24 10:49 [email or web address] Spontaneous unlabored Yes 09/22/24 10:49 [email or web address] [email or web address] respirations Mental status Awake 09/22/24 10:49 [email or web address] [email or web address] nausea No 09/22/24 10:49 [email or web address] [email or web address] Vomiting No 09/22/24 10:49 [email or web address] [email or web address] Anesthesia Postop Eval I: Fluid Summary Crystalloid volume administer 1,000 09/22/24 10:49 [email or web address] [email or web address] (ml) Colloids volume administered ( ml) Blood Product volume administered (ml) Total IV fluid infused 1,000 09/22/24 10:49 AIRCRAFT [email or web address] Anesthesia Postop Eval I: Summary Notes Anesthesia Complication No 09/22/24 10:49 [email or web address] [email or web address] Anesthesia Complication Comment: Post-operative progress note Anesthesia: Postop Eval II Evaluation Mental status: Awake Pain Level: 0 nausea: No Vomiting: No
--- NOTE | 2024-09-22 13:03 | PCM.POSTANE2 ---
Anesthesia Postop Eval I Sum Postop Eval Completion status Anesthesia document: Postop Eval 1 completed: Yes Anesthesia Postop Eval I Summary Anesthesia Postop Eval I Summary: Anesthesia Postop Eval I: Assessment Summary Airway patent Yes 09/22/24 10:49 FUNERAL PRE ARRANGEMENT [email or web address] Spontaneous unlabored Yes 09/22/24 10:49 FUNERAL PRE ARRANGEMENT [email or web address] respirations Mental status Awake 09/22/24 10:49 FUNERAL PRE ARRANGEMENT [email or web address] nausea No 09/22/24 10:49 FUNERAL PRE ARRANGEMENT [email or web address] Vomiting No 09/22/24 10:49 FUNERAL PRE ARRANGEMENT [email or web address] Anesthesia Postop Eval I: Fluid Summary Crystalloid volume administer 1,000 09/22/24 10:49 FUNERAL PRE ARRANGEMENT [email or web address] (ml) Colloids volume administered ( ml) Blood Product volume administered (ml) Total IV fluid infused 1,000 09/22/24 10:49 FUNERAL PRE ARRANGEMENT [email or web address] Anesthesia Postop Eval I: Summary Notes Anesthesia Complication No 09/22/24 10:49 FUNERAL PRE ARRANGEMENT [email or web address] Anesthesia Complication Comment: Post-operative progress note Anesthesia: Postop Eval II Evaluation Mental status: Awake Pain Level: 0 nausea: No Vomiting: No
== END 2024-09-22 12:06 | disposition home or self-care (01) ==
LOC: SDC 08:01 → AC 08:02
PROVIDERS: PCP Student in an Organized Health Care Education/Training Program; Referring Provider Urology; Visit Provider Urology
PROC: 0TJ98ZZ Inspection of Ureter, Via Natural or Artificial Opening Endoscopic (ICD-10-PCS; CPT 52352; principal; 2024-09-22 09:25)
DX: N20.1 Calculus of ureter (principal); N28.82 Megaloureter; Z87.440 Personal history of urinary (tract) infections; Z87.891 Personal history of nicotine dependence; R39.15 Urgency of urination; N39.3 Stress incontinence (female) (male); N13.30 Unspecified hydronephrosis
CPT/HCPCS: 52351; 00910; 76000; 81025; C1769; J0744; J2405

== ENCOUNTER → 2024-10-25 | Outpatient (CLI) | payer OTHER, SELFPAY ==
--- NOTE | 2024-10-25 16:07 | BI_ITS ---
EXAM: SCRN MAMM (CAD)W/HETAL BILAT DATE: 10/25/2024 CLINICAL HISTORY: F, Age 54 y/o , SCREENING TECHNIQUE: SCRN MAMM (CAD)W/HETAL BILAT COMPARISON: Prior exam(s) were compared FINDINGS: TISSUE DENSITY: The breast tissue is composed of scattered areas of fibroglandular density. Bilateral Breast Mammographic Findings: No suspicious masses, calcifications or other abnormalities are identified. BI/SCRN MAMM (CAD)W/HETAL BILAT IMPRESSION: No mammographic evidence of malignancy in either breast OVERALL FINAL ASSESSMENT BI-RADS 1: NEGATIVE. RECOMMEND ANNUAL MAMMOGRAPHIC SCREENING. RECOMMENDATION: Routine annual follow-up in 1 Year A letter with findings and recommendations will be mailed to the patient. Reading Location: [id number]
== END | disposition home or self-care (01) ==
LOC: OPBI 16:06
PROVIDERS: PCP Student in an Organized Health Care Education/Training Program; Referring Provider Student in an Organized Health Care Education/Training Program; Visit Provider Student in an Organized Health Care Education/Training Program
DX: Z12.31 Encounter for screening mammogram for malignant neoplasm of breast (principal)
CPT/HCPCS: 77063; 77067

== ENCOUNTER → 2024-11-08 | Outpatient (CLI) | payer OTHER, SELFPAY ==
[2024-11-08 12:41] LABS: Albumin, Serum 4.3 g/dL (3.5-5.0); Anion Gap 12 (5-15); BUN 25 mg/dL (4-19); BUN/Creat Ratio 18.6 RATIO (10-20); Calcium,Total 9.4 mg/dL (7.6-11.0); Carbon Dioxide 27.2 mmol/L (21.0-32.0); Chloride 100 mmol/L (98-108); Glucose 124 mg/dL (70-99); Potassium 4.1 mmol/L (3.3-5.1)
[2024-11-08 17:37] LABS: Creatinine, Urine (random) 174.00 mg/dL (28.00-217.00)
[2024-11-08 18:02] LABS: Protein, Urine (Random) 10.4 mg/dL (0.0-12.0); Protein:Creat Ratio 50 mg/g CRE (0-200)
== END | disposition home or self-care (01) ==
LOC: LAB 10:08
PROVIDERS: PCP Student in an Organized Health Care Education/Training Program; Referring Provider Internal Medicine Nephrology; Visit Provider Internal Medicine Nephrology
DX: N18.31 Chronic kidney disease, stage 3a (principal)
CPT/HCPCS: 36415; 80069; 82043; 82570; 84156

== ENCOUNTER → 2025-02-03 | Outpatient (CLI) | payer OTHER, SELFPAY | END | disposition home or self-care (01) | LOC: SL 15:14 | PROVIDERS: PCP Student in an Organized Health Care Education/Training Program; Referring Provider Student in an Organized Health Care Education/Training Program; Visit Provider Student in an Organized Health Care Education/Training Program | DX: G47.33 Obstructive sleep apnea (adult) (pediatric) (principal) | CPT/HCPCS: 95806 ==

== ENCOUNTER → 2025-02-15 | Outpatient (CLI) | payer OTHER, SELFPAY ==
[2025-02-15 18:31] LABS: PTHIN 18 pg/mL (11-61)
[2025-02-15 18:36] LABS: AST(SGOT) 23 U/L (<=31); Alanine Aminotransfer ALT/SGPT 24 U/L (<=34); Albumin, Serum 4.3 g/dL (3.5-5.0); Alkaline Phosphatase 99 U/L (35-104); Anion Gap 13 (5-15); BUN 26 mg/dL (4-19); BUN/Creat Ratio 21.5 RATIO (10-20); Calcium,Total 8.7 mg/dL (7.6-11.0); Carbon Dioxide 23.7 mmol/L (21.0-32.0); Chloride 102 mmol/L (98-108); Globulin 3.7 g/dL (2.2-4.2); Glucose 137 mg/dL (70-99); Potassium 4.4 mmol/L (3.3-5.1)
[2025-02-15 18:46] LABS: Ferritin 105 ng/mL (22-378); Vitamin D,25 Hydroxy 41.7 ng/mL (30-100)
== END | disposition home or self-care (01) ==
LOC: LAB 16:14
PROVIDERS: Internal Medicine Endocrinology, Diabetes & Metabolism; PCP Student in an Organized Health Care Education/Training Program; Referring Provider Nurse Practitioner Family; Visit Provider Nurse Practitioner Family
DX: E20.9 Hypoparathyroidism, unspecified (principal); R53.83 Other fatigue
CPT/HCPCS: 36415; 80053; 82306; 82728; 83970; 84443; 86376

== ENCOUNTER → 2025-03-10 | Outpatient (CLI) | payer OTHER, SELFPAY ==
--- OUTSIDE RECORDS SUMMARY | 2025-03-10 20:04 | XMS RPT_ITS | CCD ---
Author Organization [facility] Care Team Providers Care Industrial Painter Name Role Phone Brendon Saenz DO Primary Care Provider Dr. Brendon Saenz Primary Care Provider Dr. Brendon Saenz Referring Provider DINORAH Reyna Attending Provider Dr. Markos Benítez Attending Provider Dr. Robbie Rose Emergency Provider Dr. Rodo Marshall Admit Provider Dr. Rodo Marshall Other Provider Eric Dodson Attending Provider Unavailable Dr. Kofi Judge Other Provider Dr. Rodo Marshall Attending Provider Dr. Kofi Judge Attending Provider Dr. Jennifer Wesley Primary Care Provider Dr. Jennifer Wesley Attending Provider Dr. Brendon Saenz Primary Care Provider Dr. Brendon Saenz Referring Provider DINORAH Leyva Attending Provider Dr. Markos Benítez Attending Provider Brendon Saenz DO Primary Care Provider Dr. Brendon Saenz Primary Care Provider Dr. Brendon Saenz Referring Provider Dr. Brendon Saenz Primary Care Provider Dr. Brendon Saenz Referring Provider Brendon Saenz DO Primary Care Provider Brendon Saenz DO Primary Care Provider Brendon Saenz DO L Primary Care Provider Rizzo SALES FORCE DEVELOPER.PERMIT COORDINATOR, Cady Esperanza Unavailable Дмитрий SALES FORCE DEVELOPER.PERMIT COORDINATOR, Mitesh Unavailable Rizzo SALES FORCE DEVELOPER.PERMIT COORDINATOR, Cady Esperanza Unavailable Jordana SALES FORCE DEVELOPER.PERMIT COORDINATOR, Piedad Florian Unavailable Saenz, Brendon Primary Care Unavailable Latesha Cardenas Referring Unavailable Latesha Cardenas Attending Unavailable Nikia Gloria Referring Unavailable Nikia Gloria Attending Unavailable Saenz, Brendon Primary Care Unavailable Sienna MECHANICAL ENGINEERING DRAFTSPERSON, Kasie Referring Unavailable Sienna MECHANICAL ENGINEERING DRAFTSPERSON, Kasie Attending Unavailable Saenz, Brendon Primary Care Unavailable Saenz, Brendon Primary Care Unavailable Saenz, Brendon Referring Unavailable Saenz, Brendon Attending Unavailable Ramon Mccoy Attending Unavailable Saenz, Brendon Primary Care Unavailable Saenz, Brendon Primary Care Unavailable Moy Bellamy Attending Unavailable Saenz, Brendon Primary Care Unavailable Domenic Laguerre Attending Unavailable Saenz, Brendon Referring Unavailable Coral Jacobs Attending Unavailable Saenz, Brendon Primary Care Unavailable Saenz, Brendon Referring Unavailable Saenz, Brendon Primary Care Unavailable Moy Driver Attending Unavailable Saenz, Brendon Primary Care Unavailable Arnulfo, Jayaprakas Referring Unavailable Arnulfo, Jayaprajoshs Attending Unavailable Seanz, Brendon Primary Care Unavailable Coral Jacobs Attending Unavailable Saenz, Brendon Referring Unavailable Elaine Harrison Attending Unavailable Saenz, Brendon Primary Care Unavailable Saenz, Brendon Primary Care Unavailable Coral Jacobs Attending Unavailable Saenz, Brendon Primary Care Unavailable Coral Jacobs Attending Unavailable Saenz, Brendon Primary Care Unavailable Moy Bellamy Attending Unavailable Saenz, Brendon Primary Care Unavailable Coral Jacobs Attending Unavailable Saenz, Brendon Referring Unavailable Elaine Harrison Attending Unavailable Saenz, Brendon Primary Care Unavailable Saenz, Brendon Primary Care Unavailable SeeMoy collins L Attending Unavailable SeeseMyo L Attending Unavailable Saenz, Brendon Primary Care Unavailable Arnulfo, Jayaprakas Referring Unavailable Arnulfo, Jayaprakas Attending Unavailable Saenz, Brendon Primary Care Unavailable Saenz, Brendon Primary Care Unavailable Saenz, Brendon Referring Unavailable Saenz, Brendon Attending Unavailable Saenz, Brendon Referring Unavailable Saenz, Brendon Primary Care Unavailable Saenz, Brendon Attending Unavailable Saenz, Brendon Referring Unavailable JeysonMarkos Attending Unavailable Saenz, Brendon Primary Care Unavailable Saenz, Brendon Referring Unavailable Kasie El NP Attending Unavailable Saenz, Brendon Primary Care Unavailable Saenz, Brendon Primary Care Unavailable Coral Jacobs Attending Unavailable Saenz, Brendon Referring Unavailable Hammad Leyva Attending Unavailable Saenz, Brendon Primary Care Unavailable Saenz, Brendon Primary Care Unavailable SkCoral cardenas Attending Unavailable SkruckCoral Attending Unavailable Saenz, Brendon Primary Care Unavailable Saenz, Brendon Primary Care Unavailable Jeyson, Markos Referring Unavailable Jeyson, Markos Attending Unavailable Saenz, Brendon Primary Care Unavailable Coral Jacobs Attending Unavailable Saenz, Brendon Primary Care Unavailable Josesito Moy L Referring Unavailable Moy Bellamy L Attending Unavailable SAENZ, BRENDON L Attending Unavailable SAENZ, BRENDON L Primary Care Unavailable SAENZ, BRENDON L Attending Unavailable SAENZ, BRENDON L Primary Care Unavailable Allergies Allergy Classification Reported Allergen(s) Allergy Type Date of Onset Reaction(s) Facility (20 sources) buPROPion; Translations: [BUPROPION HCL] Drug Allergy 7 Other: See Comments [facility] Work Phone: (20 sources) Latex; Translations: [LATEX] Drug Allergy 4 Hives [facility] (18 sources) Penicillins; Translations: [PENICILLINS] Drug Intolerance 3 Shortness of Breath [facility] Work Phone: (20 sources) predniSONE; Translations: [PREDNISONE] Drug Allergy 6 GI Upset, Other: See Comments [facility] Work Phone: (14 sources) Adhesive Tape; Translations: [adhesive tape] Allergy to substance 2 Rash [facility] (13 sources) Citalopram Drug Allergy 2 Other [facility] Work Phone: (4 sources) Lactose Drug Allergy 2 Diarrhea [facility] Work Phone: (20 sources) Penicillins Drug Intolerance 3 Shortness of Breath [facility] Work Phone: (2 sources) Penicillins Allergy to substance 2 Shortness of breath [facility] Work Phone: (4 sources) Penicillins Drug Intolerance 3 Shortness of Breath [facility] (1 source) Citalopram Drug Allergy 5 [facility] (1 source) Latex Drug allergy (disorder) 5 [facility] (1 source) oxyCODONE Drug Allergy 5 [facility] (1 source) Penicillins Drug allergy (disorder) 5 [facility] Repository Medications Current Medications Medication Drug Class(es) Dates Sig (Normalized) Sig (Original) calcitriol 0.0005 mg oral capsule (20 sources) Vitamin D3 Analog Start: 06-27-2022 take 1 capsule by mouth twice daily calcitriol (ROCALTROL) 0.5 mcg capsule Take 0.5 mcg by mouth two times a day. 06/27/2022 Active Start: 06-27-2022 take 1 capsule by [facility] three times daily calcitriol (ROCALTROL) 0.5 mcg capsule Take 0.5 mcg by mouth three times daily. 0 06/27/2022 Active Start: 08-23-2021 take 0.5 ug by mouth three times daily Calcitriol Active 0.5 MCG PO THREE TIMES A DAY 270 August 23, 2021 4:14pm On Hold: Hold until otherwise instructed by your Respiratory Tech. Start: 03-26-2020 End: 08-23-2021 take 0.5 ug by mouth twice daily Calcitriol Discontinued 0.5 MCG PO TWICE A DAY 180 March 26, 2021 1:23pm August 23, 2021 4:16pm Start: 09-23-2019 End: 05-08-2022 take 1 capsule by mouth once daily calcitriol (ROCALTROL) 0.5 mcg capsule Take 1 capsule by mouth once daily. 0 12/07/2019 05/08/2022 Discontinued Comment on above: Take 1 capsule by mo uth once daily. Take 0.5 mcg by mout h three times daily. Take 0.5 mcg by mout h two times a day. Calcium (12 sources) Phosphate Binder, Calcium Start: 09-12-2021 take 600 mg by mouth twice daily Calcium Active 600 MG PO TWICE A DAY September 12, 2021 3:56pm Start: 09-12-2021 take 600 mg by mouth twice luis ly Calcium Active 600 MG PO TWICE A DAY September 12, 2021 12:00am Calcium Carbonate / vitamin D3 (20 sources) take 2 doses by mout h once daily calcium carbonate/vitamin D3 (CALCIUM 500 + D ORAL) Take 2 Each by mouth once daily. Active take 2 doses by mouth once daily calcium carbonate/vitamin D3 (CALCIUM 500 + D ORAL) Take 2 Each by mouth once daily. 0 Active Comment on above: Take 2 Each by mouth once daily. calcium carbonate 200 mg calcium (500 mg)-vitamin D3 400 unit tablet (1 source) Start: 9 take 3 tablets by mouth at bedtime calcium carbonate 200 mg calcium (500 mg)-vitamin D3 400 unit tablet Active 3 TABLET PO AT BEDTIME February 14, 2019 11:24am clonazePAM 0.5 mg oral tablet (20 sources) Benzodiazepine Start: 3 End: 3 take 1 tablet by mouth once daily as needed clonazePAM (KLONOPIN) 0.5 mg tablet Indications: Situational anxiety , Panic attacks Take 1 tablet by mouth once daily as needed for up to 30 days. 30 tablet 06/18/2022 Active Start: 04-10-2022 End: 06-07-2022 take 1 tablet by mouth once daily as needed clonazePAM (KLONOPIN) 0.5 mg tablet Indications: Situational anxiety , Panic attacks Take 1 tablet by mouth once daily as needed for up to 30 days. 30 tablet 0 05/08/2022 06/07/2022 Active Start: 07-08-2021 End: 04-04-2022 take 1 tablet by mouth once daily as needed clonazePAM (KLONOPIN) 0.5 mg tablet Indications: Situational anxiety , Panic attacks Take 1 tablet by mouth once daily as needed for up to 30 days. 30 tablet 0 03/05/2022 04/04/2022 Discontinued Start: 02-21-2021 End: 09-18-2021 take 1 tablet by mouth four times daily as needed clonazePAM orally disintegrating (KLONOPIN WAFER) 0.125 mg disintegrating tablet Indications: Panic attacks , Situational anxiety Take 1 tablet by mouth four times daily as needed for up to 30 days. 120 tablet 1 02/21/2021 09/18/2021 Discontinued Start: 02-14-2021 End: 09-18-2021 take 1 tablet by mouth twice daily as needed clonazePAM orally disintegrating (KLONOPIN WAFER) 0.25 mg disintegrating tablet Indications: Panic attacks , Situational anxiety Take 1 tablet by mouth twice daily as needed for up to 30 days. 60 tablet 2 02/14/2021 09/18/2021 Discontinued Start: 09-28-2020 take 0.25 mg by mout h three times daily Clonazepam Active 0.25 MG PO THREE TIMES A DAY September 28, 2020 3:08pm Start: 09-28-2020 take 0.5 mg by mouth once daily Clonazepam Active 0.5 MG PO DAILY September 28, 2020 12:00am Start: 02-14-2019 take 1 tablet by theresa twice daily Clonazepam (Klonopin) 0.5 mg tablet Active 0.5 MG PO TWICE A DAY February 14, 2019 11:23am Start: 08-24-2017 End: 02-14-2019 take 1 mg by mouth twice daily Clonazepam Discontinued 1 MG PO TWICE A DAY August 24, 2017 12:00am February 14, 2019 11:22am Comment on above: Take 1 tablet by theresa th once daily as needed for up to 30 days. Take 1 tablet by theresa th twice daily as needed for up to 30 days. Take 1 tablet by theresa th four times daily as needed for up to 30 days. 24 hr desvenlafaxine succinate 100 mg extended release oral tablet (20 sources) Serotonin and Norepinephrine Reuptake Inhibitor Start: 023 take 1 tablet by mouth once daily, then take 2 tablets by mouth every twenty-four hours desvenlafaxine ER (PRISTIQ) 100 mg 24 hr tablet Take 50 mg by mouth once daily. 06/04/2022 Active Start: 06-04-2022 desvenlafaxine ER (PRISTIQ) 100 mg 24 hr tablet gabapentin 300 mg oral capsule (10 sources) Anti-epileptic Agent Start: 07-17-2023 End: 08-16-2023 take 1 capsule by mouth three times daily as needed gabapentin (NEURONTIN) 300 mg capsule Indications: Hypertension, essential , Decreased GFR , Weight gain , Numbness and tingling , Arm edema Take 1 capsule by mouth three times a day as needed for up to 30 days. 90 capsule 1 07/17/2023 Active Comment on above: Take 1 capsule by [facility] three times a day as needed for up to 30 days. hydrocortisone acetate 25 mg rectal suppository (20 sources) Corticosteroid Start: 03-18-2024 take 25 mg rectal route every twelve hours as needed hydrocortisone (ANUSOL-HC) 25 mg suppository 1 Suppository by RECTAL route two times a day as needed (hemorrhoids/rectal pain). 24 Each 2 03/18/2024 Active Start: 07-22-2017 hydrocortisone 2.5 % cream Indications: Seborrheic dermatitis Apply 1 application to affected area daily at bedtime. Location: facial, avoid eyes/lips 60 g 1 07/22/2017 Active Comment on above: Apply 1 application to affected area daily at bedtime. Location: facial, avoid eyes/lips labetalol hydrochloride 100 mg oral tablet (15 sources) beta-Adrenergic Germán Start: take 2 tablets by mouth three times daily labetalol (TRANDATE) 100 mg tablet Take 200 mg by mouth three times a day. 06/24/2023 Active Start: 06-24-2023 take 1 tablet by theresa three times daily labetalol (TRANDATE) 100 mg tablet Take 1 tablet by mouth three times a day. 0 06/24/2023 Active Comment on above: Take 1 tablet by theresa three times a day. mirtazapine 30 mg oral tablet (20 sources) Start: 09-28-2020 take 30 mg by mouth at bedtime Mirtazapine Active 30 MG PO AT BEDTIME September 28, 2020 12:00am Start: 08-28-2017 take 2 tablets by [facility] once daily at bedtime mirtazapine (REMERON) 15 mg tablet Take 30 mg by mouth daily at bedtime. Per Florentin Dubon CNP 08/28/2017 Active Start: 08-28-2017 take 15 mg by mouth once daily Mirtazapine Active 15 MG PO DAILY February 14, 2019 11:23am Comment on above: Take 1 tablet by theresa th daily at bedtime. Per Florentin Dubon CNP Take 30 mg by mouth daily at bedtime. Per Florentin Dubon CNP NIFEdipine 30 mg osmotic 24 hr extended release oral tablet (19 sources) Dihydropyridine Calcium Channel Germán Start: 3 take 1 tablet by mouth once daily at bedtime NIFEdipine ER (PROCARDIA XL) 30 mg 24 hr tablet Indications: Hypertension, essential Take 1 tablet by mouth daily at bedtime. For blood pressure 90 tablet 1 12/09/2022 Active Comment on above: Take 1 tablet by theresa th daily at bedtime. For blood pressure potassium chloride 10 meq extended release oral tablet (20 sources) Start: 2 End: 2 Potassium Chloride (Klor-Con 10) 10 mEq tablet extended release Active 10 MEQ PO DAILY October 14, 2021 5:00pm End: 05-08-2022 take 10 mEq by mouth once daily POTASSIUM CHLORIDE ORAL Take 10 mEq by mouth once daily. 0 05/08/2022 Discontinued Comment on above: Take 10 mEq by mouth once daily. sertraline 100 mg oral tablet (20 sources) Serotonin Reuptake Inhibitor Start: 02-14-2019 Sertraline (Zoloft) 100 mg tablet Active 150 MG PO DAILY February 14, 2019 12:00am Start: 10-12-2018 End: 12-09-2022 take 1 tablet by mouth once daily sertraline (ZOLOFT) 100 mg tablet Take 1 tablet by mouth once daily. Total dose of 150mg daily 0 10/12/2018 12/09/2022 Discontinued Start: 10-12-2018 End: 12-09-2022 take 2 tablets by mouth once daily sertraline (ZOLOFT) 25 mg tablet Take 2 tablets by mouth once daily. Total of 150 mg daily 0 10/12/2018 12/09/2022 Discontinued Comment on above: Take 2 tablets [facility] once daily. Total of 150 mg daily Take 1 tablet by theresa th once daily. Total dose of 150mg daily spironolactone 50 mg oral tablet (20 sources) Aldosterone Antagonist Start: 03-17-20 End: 09-12-19 take 1 tablet by mouth once daily spironolactone (ALDACTONE) 50 mg tablet Take 1 tablet by mouth once daily. 90 tablet 3 09/12/2024 Active End: 03-17-2023 take 1 tablet by mouth once daily spironolactone (ALDACTONE) 25 mg tablet Take 25 mg by mouth once daily. 0 03/17/2023 Discontinued Comment on above: Take 25 mg by mouth once daily. Take 1 tablet by theresa th once daily. triamcinolone acetonide 0.001 mg/mg topical ointment (20 sources) Corticosteroid Start: 09-15-2023 triamcinolone acetonide (KENALOG) 0.1 % ointment Apply to affected area two times a day. For 10-14 days. 60 g 1 09/15/2023 Active Start: 10-03-2022 End: 09-15-2023 triamcinolone acetonide (MAGALIE ALOG) 0.1 % ointment Apply to affected area twice daily. For 10-14 days. 30 g 0 10/03/2022 09/15/2023 Discontinued Comment on above: Apply to affected ar ea twice daily. For 10-14 days. Completed/Discontinued Medications Medication Drug Class(es) Dates Sig (Normalized) Sig (Original) amLODIPine 10 mg oral tablet (20 sources) Dihydropyridine Calcium Channel Germán Start: 10-25-2021 End: 05-08-2022 take 0.5 tablet by mouth once daily amLODIPine (NORVASC) 10 mg tablet Take 0.5 tablets by mouth once daily. 90 tablet 1 10/25/2021 05/08/2022 Discontinued Start: 09-14-2021 End: 01-07-2022 take 10 mg by mouth once daily Amlodipine Active 10 MG PO DAILY September 14, 2021 12:00am Comment on above: Take 10 mg by mouth once daily. Take 1 tablet by theresa th once daily. Take 0.5 tablets by mouth once daily. atorvastatin 20 mg oral tablet (5 sources) HMG-CoA Reductase Inhibitor Start: End: take 1 tablet by mouth once daily for hyperlipidemia atorvastatin (LIPITOR) 20 mg tablet Indications: Mixed hyperlipidemia Take 1 tablet by mouth once daily. For cholesterol. 90 tablet 0 11/22/2021 11/22/2021 Discontinued Start: 10-25-2021 End: 11-24-2021 take 1 tablet by mouth once daily at bedtime for hyperlipidemia atorvastatin (LIPITOR) 10 mg tablet Take 1 tablet by mouth daily at bedtime. For cholesterol. 30 tablet 0 10/25/2021 11/22/2021 Discontinued Comment on above: Take 1 tablet by theresa th daily at bedtime. For cholesterol. Take 1 tablet by theresa th once daily. For cholesterol. calcium ascorbate 500 mg oral tablet (13 sources) Start: End: take 500 mg by mouth twice daily Ascorbate Calcium (Vitamin C) Discontinued 500 MG PO TWICE A DAY September 28, 2020 12:00am September 16, 2021 3:14pm calcium carbonate 1500 mg / cholecalciferol 200 unt oral tablet (19 sources) Vitamin D Start: End: take 1 tablet by mouth twice daily calcium carbonate 600 mg-cholecalciferol 200 units (CALCIUM 600 + D,3,) 600 mg(1,500mg) -200 unit tab Take 1 tablet by mouth twice daily. 90 tablet 3 07/19/2018 05/08/2022 Discontinued Comment on above: Take 1 tablet by theresa th twice daily. calcium carbonate 550 mg / magnesium hydroxide 110 mg chewable tablet (13 sources) Start: End: Calcium Carbonate-Mag Hydroxid Discontinued 1 EACH PO TWICE A DAY August 24, 2017 12:00am February 14, 2019 11:21am cholecalciferol 0.05 mg oral capsule (13 sources) Vitamin D Start: End: take 2000 [IU] by mouth once daily Cholecalciferol (Vitamin D3) Discontinued 2000 UNIT PO DAILY August 24, 2017 12:00am March 26, 2020 4:46pm clobetasol propionate 0.5 mg/ml topical solution (5 sources) Corticosteroid Start: End: Clobetasol Propionate (TEMOVATE) 0.05 % external solution Indications: Scalp psoriasis Apply 1 application to affected area twice daily. On scalp 50 mL 2 12/09/2022 07/17/2023 Discontinued Comment on above: Apply 1 application to affected area twice daily. On scalp cocoa butter 0.855 mg/mg / phenylephrine 0.0025 mg/mg / shark liver oil 0.03 mg/mg rectal suppository (4 sources) alpha-1 Adrenergic Agonist Start: 020 End: shark liver oil-cocoa butter (HEMORRHOIDAL) 0.25-3 % suppository Indications: Hemorrhoids, unspecified hemorrhoid type 1 Suppository by RECTAL route as needed. 12 Suppository 2 12/15/2019 09/18/2021 Discontinued Comment on above: 1 Suppository by REC ANGELIA route as needed. cyclobenzaprine hydrochloride 10 mg oral tablet (20 sources) Muscle Relaxant Start: 021 End: take 10 mg by mouth once daily Cyclobenzaprine Discontinued 10 MG PO DAILY September 28, 2020 12:00am September 16, 2021 3:15pm Start: 07-26-2020 End: 07-17-2023 take 1 tablet by mouth three times daily as needed for muscle spasms cyclobenzaprine (FLEXERIL) 10 mg tablet Indications: Chest wall pain Take 1 tablet by mouth three times daily as needed for Muscle Spasm. 40 tablet 1 07/26/2020 07/17/2023 Discontinued Start: 02-14-2019 End: 03-26-2020 take 10 mg by mouth at bedtime Cyclobenzaprine Discont inued 10 MG PO BEDTIME February 14, 2019 12:00am March 26, 2020 4:46pm Comment on above: Take 1 tablet by theresa three times daily as needed for Muscle Spasm. doxycycline hyclate 100 mg oral tablet (2 sources) Tetracycline-class Drug Start : 03-18 End: 03-28 take 1 tablet by mouth twice daily doxycycline (VIBRA-TABS) 100 mg tablet Take 1 tablet by mouth two times a day for 10 days. 20 tablet 03/18/2024 03/28/2024 hydroCHLOROthiazide 25 mg oral tablet (20 sources) Thiazide Diuretic Start : 02-21 End: 09-18 take 25 mg by mouth once daily Hydrochlorothiazide Discontinued 25 MG PO DAILY May 27, 2021 11:59am August 23, 2021 4:17pm Comment on above: Take 25 mg by mouth once daily. ketoconazole 20 mg/ml topical cream (20 sources) Azole Antifungal Start : 07-22 End: 07-16 ketoconazole (NIZORAL) 2 % cream Indications: Seborrheic dermatitis Apply 1 application to affected area daily before breakfast. 60 g 1 07/22/2017 07/17/2023 Discontinued Comment on above: Apply 1 application to affected area daily before breakfast. LORazepam 1 mg oral tablet (13 sources) Benzodiazepine Start : 08-24 End: 02-14 take 1 mg by mouth three times daily as needed Lorazepam Discontinued 1 MG PO 3 TIMES DAILY NEEDED August 24, 2017 12:00am February 14, 2019 11:22am losartan potassium 100 mg oral tablet (20 sources) Angiotensin 2 Receptor Germán Start : 11-22 End: 08-19 take 1 tablet by mouth once daily losartan (COZAAR) 100 mg tablet Indications: Hypertension, essential Take 1 tablet by mouth once daily. 90 tablet 02/22/2024 05/26/2024 Discontinued Start: 05-05-2023 End: 07-17-2023 take 1 tablet by mouth once daily losartan (COZAAR) 100 mg tablet Indications: Hypertension, essential Take 1 tablet by mouth once daily. 90 tablet 0 05/05/2023 07/17/2023 Discontinued Start: 08-04-2022 End: 02-01-2023 take 1 tablet by mouth once daily losartan (COZAAR) 100 mg tablet Indications: Hypertension, essential Take 1 tablet by mouth once daily. 90 tablet 0 02/02/2023 Active Start: 05-07-2022 take 1 tablet by theresa th once daily losartan (COZAAR) 100 mg tablet Indications: Hypertension, essential Take 1 tablet by mouth once daily. 90 tablet 0 05/07/2022 Active Start: 11-06-2021 End: 05-05-2022 take 1 tablet by mouth once daily losartan (COZAAR) 100 mg tablet Indications: Hypertension, essential Take 1 tablet by mouth once daily. 90 tablet 0 02/03/2022 05/05/2022 Discontinued Start: 07-29-2021 End: 11-03-2021 take 1 tablet by mouth once daily losartan (COZAAR) 100 mg tablet Indications: Hypertension, essential Take 1 tablet by mouth once daily. 90 tablet 0 07/29/2021 11/03/2021 Discontinued Start: 02-14-2019 take 100 mg by mouth once daily Losartan Active 100 MG PO DAILY February 14, 2019 12:00am Start: 08-24-2017 End: 02-14-2019 take 25 mg by mouth once daily Losartan Discontinued 2 5 MG PO DAILY August 24, 2017 12:00am February 14, 2019 11:21am Comment on above: Take 1 tablet by theresa th once daily. meloxicam 15 mg oral tablet (5 sources) Nonsteroidal Anti-inflammatory Drug Start: 2022 End: 2023 take 1 tablet by mouth once daily as needed for pain meloxicam (MOBIC) 15 mg tablet Indications: Myalgia Take 1 tablet by mouth once daily. As needed for joint pain, Take with food. 30 tablet 2 12/09/2022 07/17/2023 Discontinued Comment on above: Take 1 tablet by theresa th once daily. As needed for joint pain, Take with food. methylPREDNISolone 4 mg oral tablet (13 sources) Corticosteroid Start: 2019 End: 2019 take 1 tablet by mouth once Methylprednisolone (Medrol (Rajesh)) 4 mg tablets,dose pack Discontinued 4 MG PO per package directions 21 09January 02, 2020 12:00am January 07, 2020 12:02am Problems Active Problems Problem Classification Problem Date Documented Da te Episodic/Chronic Acute and unspecified renal failure (20 sources) Injury of kidney; Translations: [Acute kidney failure, unspecified] Episodic Administrative/social admission (3 sources) Persons encountering health services in other specified circumstances; Translations: [Other reasons for seeking consultation] Episodic Allergic reactions (20 sources) Idiopathic urticaria; Translations: [Idiopathic urticaria] Episodic Anxiety disorders (20 sources) Anxiety; Translations: [Other specified anxiety disorders] Onset: 12-28-2012 Chronic Chronic kidney disease (19 sources) Chronic kidney disease stage 3A ; Translations: [Stage 3a chronic kidney disease (HCC)] Onset: 03-17-2023 03-17-2023 Chronic Chronic kidney disease (2 sources) Chronic kidney disease; Translations: [Chronic kidney disease, stage 3a] Onset: 03-17-2023 Chronic obstructive pulmonary disease and bronchiectasis (2 sources) Mucopurulent chronic bronchitis; Translations: [Mucopurulent chronic bronchitis] Onset: 03-18-2024 03-18-2024 Chronic Deficiency and other anemia (12 sources) Iron deficiency anemia due to blood loss; Translations: [Iron deficiency 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 (chronic)] Onset: 12-03-2016 Resolved: 11-23-2017 11-23-2017 Chronic Diabetes mellitus without complication (1 source) Hyperglycemia, unspecified; Translations: [Hyperglycemia] Onset: 03-08-2025 Episodic Disorders of lipid metabolism (20 sources) Hypercholesterolemia ; Translations: [Pure hypercholesterolemia , unspecified] Onset: 10-17-2014 09-19-2015 Chronic Essential hypertension (20 sources) Hypertensive disorder; Translations: [Essential (primary) hypertension] Onset: 11-23-2017 11-23-2017 Chronic Fluid and electrolyte disorders (20 sources) Acute hypokalemia; Translations: [Hypokalemia] Episodic Immunizations and screening for infectious disease (1 source) Patient encounter status; Translations: [Encounter for screening for human papillomavirus (HPV)] Episodic Mood disorders (20 sources) Dysthymia; Translations: [Dysthymic disorder] Onset: 12-03-2016 12-03-2016 Chronic Nutritional deficiencies (1 source) Vitamin D deficiency; Translations: [Vitamin D deficiency, unspecified] Chronic Other aftercare (3 sources) Encounter for follow-up examination after completed treatment for conditions other than malignant neoplasm; Translations: [Other follow-up examination] Episodic Other bone disease and musculoskeletal deformities (20 sources) Segmental and somatic dysfunction; Translations: [Segmental and somatic dysfunction of cervical region] Episodic Other bone disease and musculoskeletal deformities (1 source) Segmental and somatic dysfunction of thoracic region; Translations: [Segmental and somatic dysfunction of thoracic region] Onset: 01-19-2025 Episodic Other bone disease and musculoskeletal deformities (1 source) Segmental and somatic dysfunction of lumbar region; Translations: [Segmental and somatic dysfunction of lumbar region] Onset: 01-19-2025 Episodic Other bone disease and musculoskeletal deformities (1 source) Segmental and somatic dysfunction of cervical region; Translations: [Segmental and somatic dysfunction of cervical region] Onset: 01-19-2025 Episodic Other connective tissue disease (1 source) Swelling of upper arm ; Translations: [Other specified soft tissue disorders] Episodic Other endocrine disorders (20 sources) Hypoparathyroidism; Translations: [Hypoparathyroidism, unspecified] Onset: 09-06-2007 09-06-2007 Chronic Other endocrine disorders (13 sources) Autoimmune hypoparathyroidism; Translations: [Hypoparathyroidism, unspecified] Chronic Other endocrine disorders (20 sources) Hypoparathyroidism, unspecified; Translations: [Hypoparathyroidism] Onset: 03-02-2025 Chronic Other gastrointestinal disorders (13 sources) Diarrhea; Translations: [Diarrhea, unspecified] Episodic Other gastrointestinal disorders (7 sources) Diarrhea, unspecified; Translations: [Diarrhea] Episodic Other inflammatory condition of skin (20 sources) Scalp psoriasis; Translations: [Psoriasis, unspecified] Onset: 12-10-2022 12-09-2022 Chronic Other liver diseases (20 sources) Steatosis of liver; Translations: [Fatty (change of) liver, not elsewhere classified] Onset: 12-10-2022 12-09-2022 Chronic Other liver diseases (1 source) Fatty (change of) liver, not elsewhere classified; Translations: [Fatty liver] Onset: 12-10-2022 Chronic Other nervous system disorders (1 source) Abnormal circadian rhythm; Translations: [Circadian rhythm sleep disorder, unspecified type] 03-18-2024 Chronic Other nervous system disorders (1 source) Carpal tunnel syndrome, bilateral upper limbs; Translations: [Carpal tunnel syndrome, bilateral upper limbs] Onset: 01-18-2025 Chronic Other nervous system disorders (1 source) Circadian rhythm sleep disorder, unspecified type; Translations: [Sleep-wake cycle disorder] Onset: 03-18-2024 Chronic Other nervous system disorders (1 source) Numbness and tingling sensation of skin; Translations: [Anesthesia of skin] 07-17-2023 Episodic Other nutritional; endocrine; and metabolic disorders (13 sources) Obesity; Translations: [Obesity, unspecified] Chronic Other nutritional; endocrine; and metabolic disorders (11 sources) Obesity, unspecified; Translations: [Obesity, unspecified] Chronic Other nutritional; endocrine; and metabolic disorders (11 sources) Hypermagnesemia; Translations: [Hypermagnesemia] Chronic Other nutritional; endocrine; and metabolic disorders (11 sources) Hypercalcemia; Translations: [Hypercalcemia] Chronic Other nutritional; endocrine; and metabolic disorders (18 sources) Hypercalcemia; Translations: [Hypercalcemia] Chronic Other nutritional; endocrine; and metabolic disorders (10 sources) Hypermagnesemia; Translations: [Disorders of magnesium metabolism] Chronic Other nutritional; endocrine; and metabolic disorders (20 sources) Body mass index 40+ - severely obese; Translations: [Morbid (severe) obesity due to excess calories] Onset: 12-28-2012 Resolved: 11-23-2017 12-09-2022 Chronic Other nutritional; endocrine; and metabolic disorders (1 source) Body mass index (BMI) 45.0-49.9, adult; Translations: [Class 3 severe obesity with body mass index (BMI) of 45.0 to 49.9 in adult, unspecified obesity type, unspecified whether serious comorbidity present (HCC)] Onset: 03-08-2025 Chronic Other nutritional; endocrine; and metabolic disorders (1 source) Weight gain; Translations: [Abnormal weight gain] 07-17-2023 Episodic Other skin disorders (3 sources) Other specified epidermal thickening; Translations: [Other specified anomalies of skin] Episodic Other upper respiratory disease (1 source) Hoarse; Translations: [Dysphonia] 03-18-2024 Episodic Residual codes; unclassified (3 sources) Obstructive sleep apnea (adult) (pediatric); Translations: [Obstructive sleep apnea (adult) (pediatric)] Onset: 02-27-2025 Chronic Residual codes; unclassified (1 source) Bilateral lower limb edema; Translations: [Localized edema] Episodic Residual codes; unclassified (1 source) Edema of the upper extremity ; Translations: [Localized edema] 07-17-2023 Episodic Residual codes; unclassified (1 source) Sleep disorder; Translations: [Sleep disorder, unspecified] 03-19-2024 Episodic Spondylosis; intervertebral disc disorders; other back problems (20 sources) Degeneration of lumbosacral intervertebral disc; Translations: [Other intervertebral disc degeneration, lumbosacral region] Onset: 01-26-2013 01-26-2013 Chronic Unclassified (1 source) Class 3 severe obesity with body mass index (BMI) of 45.0 to 49.9 in adult, unspecified obesity type, unspecified whether serious comorbidity present (HCC); Translations: [Class 3 severe obesity with body mass index (BMI) of 45.0 to 49.9 in adult, unspecified obesity type, unspecified whether serious comorbidity present (HCC)] Onset: 03-08-2025 Viral infection (20 sources) Viral headache; Translations: [Viral infection, unspecified] Episodic Past or Other Problems Problem Classification Problem Date Documented Da te Episodic/Chronic Abdominal pain (20 sources) Right upper quadrant pain; Translations: [Right upper quadrant pain] Onset: 10-23-2017 01-13-2018 Episodic Biliary tract disease (20 sources) Cholelithiasis without obstruction; Translations: [Calculus of gallbladder without cholecystitis without obstruction] Onset: 09-18-2022 09-18-2022 Episodic Calculus of urinary tract (1 source) Calculus of ureter; Translations: [Calculus of ureter] Onset: 09-29-2024 Episodic Genitourinary symptoms and ill-defined conditions (12 sources) Urge incontinence of urine; Translations: [Urge incontinence] Onset: 08-17-2013 Resolved: 11-23-2017 11-23-2017 Chronic Genitourinary symptoms and ill-defined conditions (1 source) Dysuria; Translations: [Dysuria] Onset: 09-14-2024 Episodic Malaise and fatigue (20 sources) Fatigue; Translations: [Other fatigue] Onset: 09-18-2022 09-18-2022 Episodic Menstrual disorders (12 sources) Menorrhagia; Translations: [Excessive and frequent menstruation with regular cycle] Onset: 12-03-2016 Resolved: 11-23-2017 11-23-2017 Chronic Nutritional deficiencies (20 sources) Cobalamin deficiency; Translations: [Deficiency of other specified B group vitamins] Onset: 03-17-2023 03-17-2023 Episodic Other bone disease and musculoskeletal deformities (20 sources) Cervical somatic dysfunction; Translations: [Segmental and somatic dysfunction of cervical region] Onset: 02-13-2021 02-13-2021 Episodic Other bone disease and musculoskeletal deformities (20 sources) Somatic dysfunction of thoracic region; Translations: [Segmental and somatic dysfunction of thoracic region] Onset: 02-13-2021 02-13-2021 Episodic Other connective tissue disease (20 sources) Muscle pain; Translations: [Myalgia, unspecified site] Onset: 05-18-2023 05-18-2023 Episodic Other connective tissue disease (12 sources) Pain in bilateral legs; Translations: [Pain in right leg] Onset: 04-22-2017 Resolved: 11-23-2017 11-23-2017 Episodic Other female genital disorders (12 sources) Abnormal uterine bleeding; Translations: [Abnormal uterine and vaginal bleeding, unspecified] Onset: 08-17-2013 Resolved: 11-23-2017 11-23-2017 Chronic Other inflammatory condition of skin (20 sources) Seborrheic dermatitis; Translations: [Seborrheic dermatitis, unspecified] Onset: 06-15-2013 06-15-2013 Episodic Other nervous system disorders (20 sources) Disorder of smell; Translations: [Unspecified disturbances of smell and taste] Onset: 12-28-2012 12-28-2012 Episodic Other screening for suspected conditions (not mental disorders or infectious disease) (20 sources) Thyroid function tests abnormal; Translations: [Abnormal results of thyroid function studies] Onset: 03-17-2023 Episodic Other upper respiratory disease (1 source) Dysphonia; Translations: [Hoarseness] Onset: 03-18-2024 Episodic Other upper respiratory infections (3 sources) Recurrent upper respiratory tract infection ; Translations: [Acute upper respiratory infection, unspecified] Onset: 03-18-2024 03-18-2024 Episodic Residual codes; unclassified (1 source) Sleep disorder, unspecified; Translations: [Sleep disorder] Onset: 03-18-2024 Episodic Spondylosis; intervertebral disc disorders; other back problems (20 sources) Neck pain; Translations: [Cervicalgia] Onset: 12-28-2012 Resolved: 11-23-2017 02-13-2021 Episodic Unclassified (1 source) Patient encounter status 08-16-2024 Results Test Name Value Interpretation Reference Range Facility [facility] 03-08-2025 CNOV Office Visit (FAMPWS ) IOANA FLETCEHR ([id number]) 1970 F Date Time Provider Department 03/08/25 3:40 PM DANY BRENDON Valarie WILKERSONPWS During your visit today, we recorded the following information about you: Temperature Pulse Respiration Blood pressure 96.7 degrees 80/minute 16/minute 120/80 Weight Height Last Period 132.5 kg 1.65 m 01/27/25 Brendon Saenz, DO 03/08/2025 10:33 PM Signed CC: Ioana Fletcher is a 54 year old female who presents to the office for physical HPI: Extreme fatigue symptoms, was falling asleep typing. She isn't sleeping well at night though. No obvious history of narcolepsy or ANKIT in herself or in family member in the past. Is concerned when driving on a highway for this feeling of wanting to nod off to sleep. She states that she can also fall asleep at work often just when she is working/typing. She was just testing for ANKIT with home sleep study when seen by Luisa Merlos CNP in sleep medicine, she has a PSG PAP titration to determine CPAP vs. Bipap or other coming up. Was told also to consider starting on GLP1 such as Wegovy to help with weight loss for the ANKIT- she is willing to consider this. Hypoparathyroidism + CKD, stage 3, sees Avionics Electrical Engineer regularly as well as Dr. Benítez Respiratory Tech whom agrees with ideas of starting a GLP 1 agonist, no new changes in labs. No new symptoms HTN, well controlled recently, no CP or palpitations or syncope or edema legs Mood, stable on current medication regiment, taking remeron Hemorrhoids, external and internal, long standing, seen on recent colonoscopy. She is interested in prn use of a suppository to help with pain and bleeding that is intermittent. PAST MEDICAL HISTORY Diagnosis Date Anemia likely due to iron deficiency Anxiety Dermatitis, seborrheic HTN (hypertension) 11/23/2017 Hypoparathyroidism (HCC) Nasal polyps Dr. Sheth ENT, CT sinuses 11/20/12 Nephrolithiasis Panic attacks Vitamin D deficiency PAST SURGICAL HISTORY Procedure Laterality Date ADENOIDECTOMY PRIMARY AGE 13/> OFFICE ENDOMETRIAL ABLATION 02/2017 Ela endometrial ablation TOOTH EXTRACTION Social History: SOCIAL HISTORY[1] FAMILY HISTORY Problem Relation Age of Onset Diabetes Mother Hypertension Mother Lipids Mother Diabetes Brother Asthma Brother Diabetes Brother Current Outpatient prescriptions: spironolactone (ALDACTONE) 50 mg tablet Take 1 tablet by mouth once daily. losartan (COZAAR) 100 mg tablet take 1 tablet by mouth once daily hydrocortisone (ANUSOL-HC) 25 mg suppository 1 Suppository by RECTAL route two times a day as needed (hemorrhoids/rectal pain). triamcinolone acetonide (KENALOG) 0.1 % ointment Apply to affected area two times a day. For 10-14 days. labetalol (TRANDATE) 100 mg tablet Take 200 mg by mouth three times a day. gabapentin (NEURONTIN) 300 mg capsule Take 1 capsule by mouth three times a day as needed for up to 30 days. NIFEdipine ER (PROCARDIA XL) 30 mg 24 hr tablet Take 1 tablet by mouth daily at bedtime. For blood pressure (Patient taking differently: Take 90 mg by mouth daily at bedtime. For blood pressure) calcitriol (ROCALTROL) 0.5 mcg capsule Take 0.5 mcg by mouth two times a day. desvenlafaxine ER (PRISTIQ) 100 mg 24 hr tablet Take 50 mg by mouth once daily. clonazePAM (KLONOPIN) 0.5 mg tablet Take 1 tablet by mouth once daily as needed for up to 30 days. calcium carbonate/vitamin D3 (CALCIUM 500 + D ORAL) Take 2 Each by mouth once daily. mirtazapine (REMERON) 15 mg tablet Take 30 mg by mouth daily at bedtime. Per Psych- Keyur Dubon, FADI hydrocortisone 2.5 % cream Apply 1 application to affected area daily at bedtime. Location: facial, avoid eyes/lips (Patient not taking: Reported on 07/17/2023) Allergies: ALLERGIES Allergen Reactions Latex Hives Penicillins Shortness of Breath Prednisone GI Upset, Other: See Comments [place] jittery Wellbutrin [Bupropi* Other: See Comments sweating ROS: See HPI PE: 03/08/25 1533 BP: 120/80 Pulse: 80 Resp: 16 Temp: (!) 35.9 ?C (96.7 ?F) TempSrc: Right Tympanic Weight: 132.5 kg (292 lb) Height: 165 cm (5' 4.96) Gen: AANDO, NAD, non-toxic appearing, Pleasant, cooperative,appears fatigued HEENT: NT/AC, PERRLA, EOMs intact b/l, nares clear and patent b/l, pharynx without erythema, exudate or lesions. MMM, Uvula midline. EACs without erythema or debris. TMs pearly [place] with intact landmarks b/l. Neck: supple, No cervical LAD, no thyromegaly, no carotid bruits CV: RRR, normal S1 and S2, no murmurs, no gallops, no rubs, Pulses 2+ and symmetric in UE and LE b/l Lungs: normal respiratory effort, CTA b/l, no wheezing or rhonchi or rales, coughing Abd: soft,obese, NT, ND, +BS, no hepatosplenomegaly MS: FROM all 4 extremities Neuro: CN II-XII intact b/l, strength 5/5 b/l UE and LE, DTRs 2/4 UE a (more content not included)... Normal [facility] Pulmonary Visit Reporton Pulmonary Visit Report [facility] Pulmonary Medicine [address] [place] [address] OFFICE VISIT Date of Service: 02/27/25 MR#: [id number] Acct: [id number] Name: IOANA FLETCHER Rep #: [id number] : 1970 Provider: LAWRENCE El Age/Sex: 54/F Location: [facility] [email or web address] Status: Signed Assessment and Plan Assessment and Plan (1) ANKIT (obstructive sleep apnea): Status: Acute Comment: AHI 66.8 Plan: New. Lengthy discussion about the pathophysiology of obstructive sleep apnea. We discussed the risks of untreated sleep apnea as well as the benefits. Given the degree of hypoxia that was noted on the unattended sleep study, I believe the next best step is to send the patient for a titration study. She conveys understanding and is agreeable with this plan. Once test results are available I will order the appropriate equipment and setting. Initial goal will be to wear PAP at least 4 hours nightly. Ultimately, it should be worn any time spent sleeping. I have encouraged the patient to call the office with any difficulties acclimating to PAP therapy. Follow up in the office in 3 months, at which time I anticipate the patient will be on PAP therapy for 4-6 weeks. (2) Obesity: Status: Chronic Qualifiers: Obesity type: due to excess calories Obesity classification: adult class 3 (BMI >= 40) Serious obesity comorbidity presence: with serious comorbidity Body mass index: BMI 45.0-49.9 Qualified Code(s): E66.01 - Morbid (severe) obesity due to excess calories; Z68.42 - Body mass index [BMI] 45.0-49.9, adult Plan: Complicates exam, plan, care and prognosis. The patient reports that she has not had success with weight loss. She has been working with an machine room engineer. She would be appropriate for the use of Zepbound, given her concomitant diagnoses of obstructive sleep apnea and obesity. Zepbound has been found to be effective in reducing AHI and assisting in weight loss which also treats obstructive sleep apnea. This would need to be ordered and managed either through primary care or endocrinology due to the required counseling and close follow-up. The patient conveys understanding. (3) Essential hypertension: Status: Chronic Comment: CONTROLLED ON MED Plan: We discussed the relationship between untreated obstructive sleep apnea potential. I explained to the patient that by treating her severe obstructive sleep apnea she may be able to reduce some of her antihypertensive medications or potentially be weaned off of them. She conveys understanding. (4) Anxiety: Status: Chronic Plan: Anxiety can impact the patient's ability to acclimate to PAP therapy. However, treating obstructive sleep apnea can help to reduce overall anxiety symptoms. Monitor closely moving forward but defer any medication changes to primary care or psychiatry. Orders: Orders Polysomnography with PAP Today G47.33 - Obstructive sleep apnea (adult) (pediatric) Plan Details Additional Comments: This note was generated with Kudo dictation software. It may contain incorrect words, spelling, and punctuation that were not noted in checking the note before signing. Portions of this documentation have been copied and pasted from previous office visit notes to provide a cohesive continuity of the history. The note has been reviewed, edited, and updated, as necessary. Follow Up: 3 Months HPI Sleep problems Chief Complaint: test results HPI Comments Details: This patient presents to the office today for initial consultation regarding concern for obstructive sleep apnea. She is ambulatory. The patient reports that for the past 6 months she has had increased difficulty in staying asleep. She states that she will fall asleep and after sleeping for only 1 hour she is wide-awake. She does not feel rested when she wakes up in the morning. She is nodding off when doing computer work. She has difficulty with dry mouth. She snores. 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 She does have a very distant smoking history, quitting completely 20 years ago. She had a spirometry completed here at the [facility] [facility] [employer] last year which was normal. She has never been prescribed any inhalers. She does report that she gets a chest cold every year that turns into bronchitis. In fact, she has had a cold for the past 3 weeks. She states that she is on the tail end of it. Past medical family history is consistent for: Mother had diabetes, myocardial infarction and hypertension. Father's health is unknown as he when the patient was young. Brother has asthma. Other brother has kidney disease on dialysis, on kidney transplant list, had leg amputation, hypertension. The patient has 2 grown sons who (more content not included)... Normal [facility] Thyroid Peroxidase ABon 02-01 THYR PEROX AB < 9 Normal 0-34 [facility] Comment on above: Result Comment: Perf ormed at: CB - [facility] [address] [id number] Manager Cafe: Bernabe Peraza PhD, Phone: [phone] Performed By: #### L [id number], [id number], [id number], [id number] ####[facility] [id number] [place], [place], [id number] Endocrinology Visit Reporton 02-16-2025 Endocrinology Visit Report [facility] [address] [place] [address]. [address] [place], [place] [address] OFFICE VISIT Date of Service: 02/16/25 MR#: [id number] Acct: [id number] Name: IOANA FLETCHER Rep #: [id number] : 1970 Provider: Tine Cruz Age/Sex: 54/F Location: [facility] [place] Status: Signed Intake Vital Signs 02/18/24 15:58 01/10/25 16:25 02/16/25 16:01 Height 5 ft 5 in 5 ft 5 in 5 ft 5 in Weight: 294 lb BMI 48.9 BP 131/83 H Blood Pressure Location Lt brachial Position Sitting Pulse 79 Pulse Source Monitor Pulse Oximetry (%) 97 Oxygen Delivery Method room air Intake Visit Reasons: 1 Y FU Chief Complaint: Autoimmune hypoparathyroidism Is patient in pain?: No Allergies adhesive tape Allergy (Intermediate, Verified 02/16/25 16:03) Rash latex Allergy (Mild, Verified 02/16/25 16:03) rash Penicillins Allergy (Verified 02/16/25 16:03) Shortness of breath oxycodone Adverse Reaction (Intermediate, Verified 02/16/25 16:03) Nausea citalopram (From Celexa) Adverse Reaction (Verified 02/16/25 16:03) Other Medications ???Medication ???Instructions ???Recorded ???Confirmed ???Type calcium 600 mg capsule 600 mg PO BID 09/12/21 02/16/25 Hi story spironolactone 25 mg tablet 25 mg PO QDAY 02/18/24 02/16/25 Hi story labetalol 200 mg tablet 200 mg PO TID 09/20/24 02/16/25 Hi story losartan 100 mg tablet 100 mg PO DAILY 09/20/24 02/16/25 History desvenlafaxine succinate 50 mg 50 mg PO DAILY 90 days #90 tabs 02/16/25 Rx tablet,extended release 24 hr mirtazapine 30 mg tablet 30 mg PO QHS #90 tabs 01/10/25 Rx meclizine 25 mg tablet 25 mg PO TID PRN dizziness #14 tab s 01/18/25 02/16/25 Rx calcitriol 0.5 mcg capsule 0.5 mcg PO .QD, BID on - 5 History clonazepam 0.5 mg tablet 0.5 mg PO DAILY PRN anxiety 30 02/16/25 Rx days #30 tabs PFSH Medical History Carpal tunnel syndrome, right Psoriasis History of echocardiogram Wears glasses History of renal disease Anemia Fatty liver Easy bruising Injury of head and neck History of edema Osteoarthritis of left knee Left knee pain Abnormal glucose YOEL (generalized anxiety disorder) Panic disorder Chronic bilateral low back pain without sciatica Rosacea Former smoker Essential hypertension Obesity Back pain Vitamin D deficiency Hypoparathyroidism Osteoarthritis HTN (hypertension) Low calcium levels Chronic headaches Anxiety Carpal tunnel syndrome Back problem Arthritis Seasonal allergies Surgical History History of carpal tunnel surgery of left wrist Hx of colonoscopy S/P endometrial ablation History of adenoidectomy Family History Brother Asthma Autoimmune disorder Diabetes Hypertension Kidney disease Mental disorder Mother Arthritis Blood clot in vein Diabetes Mental disorder Hyperlipidemia Grandmother Cancer Melanoma Grandfather Myocardial infarction Heart disease Hyperlipidemia Social History household members: family and children current occupation: Works at [employer] Smoking Status: Former smoker pack-years: 6 how long ago did patient quit smokin years alcohol intake: never substance use type: does not use what type of physical activity do you participate in: none do you feel safe at home: Yes HPI HPI Chief Complaint: Autoimmune hypoparathyroidism Details: IOANA FLETCHER, is a 54 F who presents to the office today for follow up. She had an episode of hypercalcemia and renal injury last year. Labs done a few days ago show a calcium of 8.7. Renal function is stable. Dr. Arredondo reduced her calcitriol dose to one daily, 2 on Mondays and Fridays. No significant muscle cramps. She is having a lot of daytime somnolence and difficulty staying asleep at night. She had testing that showed severe sleep apnea and she has an appointment at the sleep center on the . ROS Const Constitutional: Positive for fatigue and abnormal sleep pattern; No weight change ENT ENT: No dizziness/vertigo Cardio Cardiology: No chest pain at rest, chest pain with exertion, shortness of breath or palpitations Psych Psychiatric: Positive for abnormal sleep pattern Skin Skin: No wounds Endo Endocrine: Positive for fatigue; No weight change Exam Const General: cooperative, healthy appearing, comfortable, no acute distress, well developed and not cushingoid Nutritional Appearance: well nourished and obese Orientation: alert, awake and oriented x3 HENMT Head: normal to inspection Ears: hearing rossana (more content not included)... Normal [facility] Comprehensive Metabolic Prof ilon 02-15-2025 Albumin [Mass/Vol] 4.3 g/dL Normal 3.5-5.0 [facility] Comment on above: Order Comment: SEND RESULTS TO NIKIA JUANI Performed By: #### L 501.9520, L500.4050 #### [facility] [address] [place], [address] Albumin/Globulin [Mass ratio] 1.2 {ratio} Normal 0.9-2.4 [facility] Comment on above: Order Comment: SEND RESULTS TO NIKIACynthia GLORIA Performed By: #### L 501.9520, L500.4050 #### [facility] [address] [place], [address] ALK PHOS 99 U/L Normal 35-104 [facility] Comment on above: Order Comment: SEND RESULTS TO NIKIA GLORIA Performed By: #### L 501.9520, L500.4050 #### [facility] [address] [place], [address] ALT [Catalytic activity/Vol] 24 U/L Normal <=34 [facility] Comment on above: Order Comment: SEND RESULTS TO NIKIACynthia GLORIA Performed By: #### L 501.9520, L500.4050 #### [facility] [address] [place], [address] AST [Catalytic activity/Vol] 23 U/L Normal <=31 [facility] Comment on above: Order Comment: SEND RESULTS TO NIKIA GLORIA Performed By: #### L 501.9520, L500.4050 #### [facility] [address] [place], [address] Bilirubin [Mass/Vol] 0.33 mg/dL Normal 0.00-1.30 [facility] Comment on above: Order Comment: SEND RESULTS TO NIKIA GLORIA Performed By: #### L 501.9520, L500.4050 #### [facility] [address] [place], [address] BUN/CRE 21.5 RATIO High 10-20 [facility] Comment on above: Order Comment: SEND RESULTS TO NIKIA GLORIA Performed By: #### L 501.9520, L500.4050 #### [facility] [address] [place], [address] Calcium [Mass/Vol] 8.7 mg/dL Normal 7.6-11.0 [facility] Comment on above: Order Comment: SEND RESULTS TO NIKIA JUANI Performed By: #### L 501.9520, L500.4050 #### [facility] [address] [place], [address] Chloride [Moles/Vol] 102 mmol/L Normal 98-108 [facility] Comment on above: Order Comment: SEND RESULTS TO NIKIA JUANI Performed By: #### L 501.9520, L500.4050 #### [facility] [address] [place], [address] CO2 [Moles/Vol] 23.7 mmol/L Normal 21.0-32.0 [facility] Comment on above: Order Comment: SEND RESULTS TO NIIKA GLORIA Performed By: #### L 501.9520, L500.4050 #### [facility] [address] [place], [address] Creatinine [Mass/Vol] 1.23 mg/dL High 0.70-1.20 [facility] Comment on above: Order Comment: SEND RESULTS TO NIKIA GLORIA Performed By: #### L 501.9520, L500.4050 #### [facility] [address] [place], [address] GAP 13 Normal 5-15 [facility] Comment on above: Order Comment: SEND RESULTS TO NIKIACynthia GLORIA Performed By: #### L 501.9520, L500.4050 #### [facility] [address] [place], [address] GFR/1.73 sq M.predicted among non-blacks MDRD (S/P/Bld) [Vol rate/Area] 53 mL/min/{1.73_m2} Low >60 [facility] Comment on above: Order Comment: SEND RESULTS TO NIKIA GLORIA Result Comment: mL/m in/1.73m2 CKD-EPI Creatinine Equation (2020) Performed By: #### L 501.9520, L500.4050 #### [facility] [address] [place], [address] Globulin (S) [Mass/Vol] 3.7 g/dL Normal 2.2-4.2 [facility] Comment on above: Order Comment: SEND RESULTS TO NIKIA GLORIA Performed By: #### L 501.9520, L500.4050 #### [facility] [address] [place], [address] Glucose [Mass/Vol] 137 mg/dL High 70-99 [facility] Comment on above: Order Comment: SEND RESULTS TO NIKIA GLORIA Performed By: #### L 501.9520, L500.4050 #### [facility] [address] [place], [address] Potassium [Moles/Vol] 4.4 mmol/L Normal 3.3-5.1 [facility] Comment on above: Order Comment: SEND RESULTS TO NIKIA GLORIA Performed By: #### L 501.9520, L500.4050 #### [facility] [address] [place], [address] Sodium [Moles/Vol] 138 mmol/L Normal 133-145 [facility] Comment on above: Order Comment: SEND RESULTS TO NIKIA GLORIA Performed By: #### L 501.9520, L500.4050 #### [facility] [address] [place], [address] T PROT 8.0 g/dL Normal 5.9-8.4 [facility] Comment on above: Order Comment: SEND RESULTS TO NIKIA GLORIA Performed By: #### L 501.9520, L500.4050 #### [facility] [address] [place], [address] Urea nitrogen [Mass/Vol] 26 mg/dL High 4-19 [facility] Comment on above: Order Comment: SEND RESULTS TO NIKIA GLORIA Performed By: #### L 501.9520, L500.4050 #### [facility] [address] [place], [address] Ferritinon 02-15-2025 Ferritin [Mass/Vol] 105 ng/mL Normal 22-378 [facility] Comment on above: Performed By: #### L 3300.6900, L506.1001, L509.1000, L503.6550 #### [facility] [address] [place], [address] PTHINon 02-15-2025 PTH 18 pg/mL Normal 11-61 [facility] Comment on above: Performed By: #### L 3300.6900, L506.1001, L509.1000, L503.6550 #### [facility] [address] [place], [address] Thyroid Stim Hormone (TSH)on 02-15-2025 TSH 2.620 uIU/mL Normal 0.300-4.200 [facility] Comment on above: Order Comment: SEND RESULTS TO NIKIA GLORIA Performed By: #### L 501.9520, L500.4050 #### [facility] [address] [place], [address] Vitamin D,25 Hydroxyon 02-15 Vitamin D 25-OH 41.7 ng/mL Normal 30-100 [facility] Comment on above: Result Comment: Trinh min D Status Deficiency: <20 ng/mL (50nmol/L) Insufficiency: 20-30 ng/mL (50-75 nmol/L) Sufficiency: 30-100 ng/mL (75-250 nmol/L) Toxicity: >100 ng/mL (>250 nmol/L) Performed By: #### L 3300.6900, L506.1001, L509.1000, L503.6550 #### [facility] [address] [place], [address] Chiropractic Reporton 2024 Chiropractic Report [facility] [address] [place] [id number] OFFICE VISIT Date of Service: 01/19/25 MR#: [id number] Acct: [id number] Name: IOANA FLETCHER Rep #: [id number] : 1970 Provider: GLEN Dwyer Age/Sex: 54/F Location: [facility] [place] Status: Signed Intake Vital Signs 12/01/24 17:10 12/06/24 09:29 01/10/25 16:25 Height 5 ft 5 in 5 ft 5 in 5 ft 5 in Weight: 286 lb BMI 47.5 BP 121/79 H Blood Pressure Location Lt brachial Position Sitting Respiration 16 Pulse 96 Pulse Source Monitor Intake Visit Reasons: BACK PAIN Chief Complaint: neck and upper back pain Is patient in pain?: Yes (neck ) Pain scale (1-10): 5 Allergies adhesive tape Allergy (Intermediate, Verified 01/18/25 16:29) Rash latex Allergy (Mild, Verified 01/18/25 16:29) rash Penicillins Allergy (Verified 01/18/25 16:29) Shortness of breath oxycodone Adverse Reaction (Intermediate, Verified 01/18/25 16:29) Nausea citalopram (From Celexa) Adverse Reaction (Verified 01/18/25 16:29) Other Medications ???Medication ???Instructions ???Recorded ???Confirmed ???Type calcium 600 mg capsule 600 mg PO BID 09/12/21 01/19/25 Hi story spironolactone 25 mg tablet 25 mg PO QDAY 02/18/24 01/19/25 Hi story calcitriol 0.5 mcg capsule 0.5 mcg PO .qd, BID on #120 07/18/24 01/19/25 Rx caps labetalol 200 mg tablet 200 mg PO TID 09/20/24 01/19/25 Hi story losartan 100 mg tablet 100 mg PO DAILY 09/20/24 01/19/25 History clonazepam 0.25 mg disintegrating 0.25 mg PO BID PRN anxiety #60 ta bs 01/10/25 01/19/25 Rx tablet desvenlafaxine succinate 50 mg 50 mg PO DAILY 90 days #90 tabs 01/19/25 Rx tablet,extended release 24 hr mirtazapine 30 mg tablet 30 mg PO QHS #90 tabs 01/10/25 Rx meclizine 25 mg tablet 25 mg PO TID PRN dizziness #14 tab s 01/18/25 01/19/25 Rx PFSH Medical History Carpal tunnel syndrome, right Psoriasis History of echocardiogram Wears glasses History of renal disease Anemia Fatty liver Easy bruising Injury of head and neck History of edema Osteoarthritis of left knee Left knee pain Abnormal glucose YOEL (generalized anxiety disorder) Panic disorder Chronic bilateral low back pain without sciatica Rosacea Former smoker Essential hypertension Obesity Back pain Vitamin D deficiency Hypoparathyroidism Osteoarthritis HTN (hypertension) Low calcium levels Chronic headaches Anxiety Carpal tunnel syndrome Back problem Arthritis Seasonal allergies Surgical History History of carpal tunnel surgery of left wrist Hx of colonoscopy S/P endometrial ablation History of adenoidectomy Family History Brother Asthma Autoimmune disorder Diabetes Hypertension Kidney disease Mental disorder Mother Arthritis Blood clot in vein Diabetes Mental disorder Hyperlipidemia Grandmother Cancer Melanoma Grandfather Myocardial infarction Heart disease Hyperlipidemia Social History household members: family and children current occupation: Works at [employer] Smoking Status: Former smoker pack-years: 6 how long ago did patient quit smokin years alcohol intake: never substance use type: does not use what type of physical activity do you participate in: none do you feel safe at home: Yes HPI BACK PAIN Chief Complaint: Back Pain Visit Number: 2 Details: Details: Ioana is a 54 y/o female who presents in Chiropractic today with complaints of pain and stiffness in her neck, upper back and across her shoulder blades bilaterally. She rates her neck pain 5/10 today. She states her low back has been feeling good since her last adjustment. Patient states she has been dealing with Vertigo for about 3-4 weeks and is located on the right side- however its been improving. Patient states that laying on the right side tends to worsen the pain and stiffness.She gets persistent lbp. Patient denies new injury, denies numbness, tingling, radiculopathy. Chiropractic adjustments have been beneficial in the past. Location: neck/back Duration: frequent Aggravating or associated factors: ROM, laying down Relieving factors: chiro Pain Quality: aching and dull Exam Musc General: Yes normal gait, joint tenderness and decreased range of motion; No normal posture or muscle weakness Cervical Spine: Yes loss of normal cervical lordosis, Yes cervical muscular tenderness right greater than left diffuse , Yes cervical spasm right greater than left diffuse trapezius and paracervical muscles and Yes misalignment misalignment: C1, C2, C5 and C6 (more content not included)... Normal [facility]gent Care Visit Reporton 0 01-18-2025 Urgent Care Visit Report [facility] [address], [address] [place] [address] OFFICE VISIT Date of Service: 01/18/25 MR#: [id number] Acct: [id number] Name: IOANA FLETCHER Rep #: [id number] : 1970 Provider: DINORAH Marks Age/Sex: 54/F Location: [facility] [place] Status: Signed Intake Vital Signs 01/10/25 16:25 01/18/25 16:29 Height 5 ft 5 in Weight: 286 lb BMI 47.5 BP 121/79 H 132/74 H Blood Pressure Location Lt brachial Lt brachial Position Sitting Sitting Respiration 16 16 Pulse 96 72 Pulse Source Monitor NIBP Temp 98.2 F Temp Source Oral Pulse Oximetry (%) 98 Oxygen Delivery Method room air Intake Visit Reasons: EAR PAIN Chief Complaint: ears plugged [employer] Required: No Is patient in pain?: No Allergies adhesive tape Allergy (Intermediate, Verified 01/18/25 16:29) Rash latex Allergy (Mild, Verified 01/18/25 16:29) rash Penicillins Allergy (Verified 01/18/25 16:29) Shortness of breath oxycodone Adverse Reaction (Intermediate, Verified 01/18/25 16:29) Nausea citalopram (From Celexa) Adverse Reaction (Verified 01/18/25 16:29) Other Is last menstrual period known: No Post menopausal: Yes Patient : No Have you fallen in the past year?: No Nurse's Note: bilat ears plugged intermittently x 6 weeks, vertigo for same timeframe. denies pain, drainage, fever. also requesting kenalog injection for right carpal tunnel x 2 years. [facility] Medical History (Updated 01/18/25 @ 17:44 by Moy COPELAND, [place]) Carpal tunnel syndrome, right Psoriasis History of echocardiogram Wears glasses History of renal disease Anemia Fatty liver Easy bruising Injury of head and neck History of edema Osteoarthritis of left knee Left knee pain Abnormal glucose YOEL (generalized anxiety disorder) Panic disorder Chronic bilateral low back pain without sciatica Rosacea Former smoker Essential hypertension Obesity Back pain Vitamin D deficiency Hypoparathyroidism Osteoarthritis HTN (hypertension) Low calcium levels Chronic headaches Anxiety Carpal tunnel syndrome Back problem Arthritis Seasonal allergies Surgical History History of carpal tunnel surgery of left wrist Hx of colonoscopy S/P endometrial ablation History of adenoidectomy Family History Brother Asthma Autoimmune disorder Diabetes Hypertension Kidney disease Mental disorder Mother Arthritis Blood clot in vein Diabetes Mental disorder Hyperlipidemia Grandmother Cancer Melanoma Grandfather Myocardial infarction Heart disease Hyperlipidemia Social History household members: family and children current occupation: Works at [employer] Smoking Status: Former smoker pack-years: 6 how long ago did patient quit smokin years alcohol intake: never substance use type: does not use what type of physical activity do you participate in: none do you feel safe at home: Yes HPI HPI Chief Complaint: ears plugged Details: IOANA FLETCHER, is a 54 F who presents to the office today for several things: - bilat ears plugged ? intermittently x 6 weeks vs vertigo for same timeframe; h/o mild tolerable vertigo (same today) noting benadryl helps and would like another medication regiment to assist at this time. No LOC/nausea/vomiting stated by patient and no complaints of fever, chills, sweats. - Also requesting kenalog injection for right carpal tunnel x 2 years (as well as to assist with controlling her psoriasis) Asymptomatic otherwise without other concerns she says states. ROS Const Constitutional: No other (As above) Exam Const General: cooperative, healthy appearing and no acute distress Orientation: alert and awake [facility] Head: normal to inspection (Except lichenification/flaking scalp) Ears: hearing grossly normal bilaterally, external ears normal, TM's normal bilaterally and EAC's normal Nose: external nose normal, nares normal, septum normal and no nasal discharge Face and sinus: normal facial exam, sinuses nontender and face symmetric Mouth: oral mucosae normal, lip normal, tongue normal, oropharynx normal and moist mucous membranes Throat: posterior oropharynx normal, tonsils normal, uvula midline and no postnasal drainage Eyes General: appearance normal, both eyes and all related structures Neck Neck: normal visual inspection, full ROM, no lymphadenopathy, no meningeal signs and supple Resp Effort Inspection: normal respiratory effort and able to speak in complete sentences Cardio Rate: regular rate Pulses: radial pulses present Skin General: no rashes or lesions noted Neuro General: patient alert, patient awake and (more content not included)... Normal [facility] MR/BMS.BPon 01-10-2025 MR/BMS.BP [facility] [address], [address] [place] [address] OFFICE VISIT Date of Service: 01/10/25 MR#: [id number] Acct: [id number] Name: IOANA FLETCHER Valarie Rep #: [id number] : 1970 Provider: Dr. Moy Beth se, DO Age/Sex: 54/F Location: [facility] [place] Status: Signed Intake Vital Signs 10/10/24 16:19 12/27/24 06:54 01/10/25 16:25 Height 5 ft 5 in 5 ft 5 in 5 ft 5 in Weight: 286 lb BMI 47.5 BP 121/79 H Blood Pressure Location Lt brachial Position Sitting Respiration 16 Pulse 96 Pulse Source Monitor BP Intake Visit Reasons: 3 M FU Accompanied by: Self Allergies adhesive tape Allergy (Intermediate, Verified 01/10/25 16:28) Rash latex Allergy (Mild, Verified 01/10/25 16:28) rash Penicillins Allergy (Verified 01/10/25 16:28) Shortness of breath oxycodone Adverse Reaction (Intermediate, Verified 01/10/25 16:28) Nausea citalopram (From Celexa) Adverse Reaction (Verified 01/10/25 16:28) Other Medications ???Medication ???Instructions ???Recorded ???Confirmed ???Type calcium 600 mg capsule 600 mg PO BID 09/12/21 01/10/25 Hi story spironolactone 25 mg tablet 25 mg PO QDAY 02/18/24 01/10/25 Hi story calcitriol 0.5 mcg capsule 0.5 mcg PO .qd, BID on - #120 07/18/24 01/10/25 Rx caps labetalol 200 mg tablet 200 mg PO TID 09/20/24 01/10/25 Hi story losartan 100 mg tablet 100 mg PO DAILY 09/20/24 01/10/25 History clonazepam 0.25 mg disintegrating 0.25 mg PO BID PRN anxiety #60 ta bs 01/10/25 01/10/25 Rx tablet desvenlafaxine succinate 50 mg 50 mg PO DAILY 90 days #90 tabs 01/10/25 Rx tablet,extended release 24 hr mirtazapine 30 mg tablet 30 mg PO QHS #90 tabs 01/10/2501/26 Rx PFSH Medical History History of echocardiogram Wears glasses History of renal disease Anemia Fatty liver Easy bruising Injury of head and neck History of edema Osteoarthritis of left knee Left knee pain Abnormal glucose YOEL (generalized anxiety disorder) Panic disorder Chronic bilateral low back pain without sciatica Rosacea Former smoker Essential hypertension Obesity Back pain Vitamin D deficiency Hypoparathyroidism Osteoarthritis HTN (hypertension) Low calcium levels Chronic headaches Anxiety Carpal tunnel syndrome Back problem Arthritis Seasonal allergies Surgical History History of carpal tunnel surgery of left wrist Hx of colonoscopy S/P endometrial ablation History of adenoidectomy Family History Brother Asthma Autoimmune disorder Diabetes Hypertension Kidney disease Mental disorder Mother Arthritis Blood clot in vein Diabetes Mental disorder Hyperlipidemia Grandmother Cancer Melanoma Grandfather Myocardial infarction Heart disease Hyperlipidemia Social History household members: family and children current occupation: Works at [employer] Smoking Status: Former smoker pack-years: 6 how long ago did patient quit smokin years alcohol intake: never substance use type: does not use what type of physical activity do you participate in: none do you feel safe at home: Yes HPI History of Present Illness History provided by: patient HPI: Ioana Fletcher is a 54 year old female who presents today for follow up evaluation. Patient reports that things have been status quo. Has had some vertigo in recent past. Mood has been eh which she states is not great but this is not unusual. Has been sleeping much worse in recent past, specifically having difficulty staying asleep. Will fall to sleep and get up 40 minutes later and then repeat the cycle all night. Has tried to take diphenhydramine but this doesn't help with staying asleep. Has not been napping. Has been feeling very tired during the day. Was supposed to have a sleep study but did not get done because they wanted her to travel to [place]. Denies SI HI or AVH. [place] Sleepiness Score Sitting and reading 3 Watching TV 1 Sitting inactive in a public place (eg, a theater or meeting) 1 As a passenger in a car for an hour without a break 1 Lying down to rest in the afternoon when circumstances permit 3 Sitting and talking with someone 2 Sitting quietly after a lunch without alcohol 2 In a car, while stopped for a few minutes in traffic 1 STOP-Bang Questionnaire Is it possible that you have ... Obstructive Sleep Apnea (ANKIT)? Snoring ? Do you???Snore Loudly???(loud enough to be heard through closed doors or your bed-partner elbows you for snoring at night)? Yes Tired ? Do you often feel???Tired, Fatigued, or Sleepy???during the daytime (such as falling a (more content not included)... Normal [facility] MR/BMS.BPon 12-27-2024 MR/BMS.BP [facility] [address] [place] [address], [address] [place] [address] OFFICE VISIT Date of Service: 12/26/24 MR#: [id number] Acct: [id number] Name: IOANA FLETCHER Rep #: [id number] : 1970 Provider: CECELIA dickerson Age/Sex: 54/F Location: [facility] [place] Status: Signed Intake Vital Signs 07/11/24 16:18 12/06/24 09:29 12/27/24 06:54 Height 5 ft 5 in 5 ft 5 in 5 ft 5 in BP Intake Visit Reasons: Follow up Allergies adhesive tape Allergy (Intermediate, Verified 12/01/24 17:12) Rash latex Allergy (Mild, Verified 12/01/24 17:12) rash Penicillins Allergy (Verified 12/01/24 17:12) Shortness of breath oxycodone Adverse Reaction (Intermediate, Verified 12/01/24 17:12) Nausea citalopram (From Celexa) Adverse Reaction (Verified 12/01/24 17:12) Other [facility] Medical History History of echocardiogram Wears glasses History of renal disease Anemia Fatty liver Easy bruising Injury of head and neck History of edema Osteoarthritis of left knee Left knee pain Abnormal glucose YOEL (generalized anxiety disorder) Panic disorder Chronic bilateral low back pain without sciatica Rosacea Former smoker Essential hypertension Obesity Back pain Vitamin D deficiency Hypoparathyroidism Osteoarthritis HTN (hypertension) Low calcium levels Chronic headaches Anxiety Carpal tunnel syndrome Back problem Arthritis Seasonal allergies Surgical History History of carpal tunnel surgery of left wrist Hx of colonoscopy S/P endometrial ablation History of adenoidectomy Family History Brother Asthma Autoimmune disorder Diabetes Hypertension Kidney disease Mental disorder Mother Arthritis Blood clot in vein Diabetes Mental disorder Hyperlipidemia Grandmother Cancer Melanoma Grandfather Myocardial infarction Heart disease Hyperlipidemia Social History household members: family and children current occupation: Works at [employer] Smoking Status: Former smoker pack-years: 6 how long ago did patient quit smokin years alcohol intake: never substance use type: does not use what type of physical activity do you participate in: none do you feel safe at home: Yes HPI History of Present Illness HPI: Ioana Fletcher is a 54 year-old female returning for therapy. She reported elevated anxiety and times of panic attributing these to her living situation, which has become increasingly more difficult for her and her son due to her mother's behaviors. Ioana identified that work was also a stressor. She verbalized ongoing avoidance of leaving the [facility] and spending much of her time in her room to avoid interactions with her mother. Encouraged verbalization of emotions while providing support. Normalized emotions. Explored mother's behavior patterns over time. Provided psychoeducation on radical acceptance and practiced applying to mother's actions. Used Solution Focused Strategies to help Ioana recognize times when she experienced improved mood, which she identified as attending grandson's sporting event. Worked on opposite action particularly scheduling social interactions outside the home. Provided psychoeducation on action creating motivation. Worked on feelings of guilt using CBT interventions and ambivalence using dialectics. Worked on healthy limits and boundaries providing psychoeducation. Ioana identified utilizing breathing, which was reinforced. Ioana presented open to interventions and is gradually increasing her self-care through limit setting. No SI. Future-oriented. Exam Mental Status Exam - Psych Appearance casually dressed and adequately groomed Attitude cooperative, calm and engaged Activity/Motor Behavior MSE activity/motor behavior finding no adventitious movements and appropriate eye contact Speech regular rate, regular volume and regular prosody Mood sad and anxious Affect constricted and blunted Thought Process linear, logical and coherent Thought Content no delusions and no hallucinations Suicidal Ideation none Homicidal Ideation none Attention intact Concentration intact Sensorium/Orientation alert and oriented x3 Memory/Cognition intact Insight good Judgement good Assessment Plan Assessment Plan (1) YOEL (generalized anxiety disorder): Plan: therapy using CBT, DBT, and ACT interventions to address thought patterns contributing to anxious symptoms and to teach coping skills. Psychiatric services to monitor anxious symptoms and medication effectiveness. (2) Panic disorder: Plan: therapy using CBT, DBT, and ACT interventions to address thought patterns contributing (more content not included)... Normal [facility] MR/on 12-06-2024 MR/[facility] [address], [address] [place] [id number] OFFICE VISIT Date of Service: 12/05/24 MR#: [id number] Acct: [id number] Name: IOANA FLETCHER Rep #: [id number] : 1970 [facility] Age/Sex: 54/F [place]: [facility] [place] Status: Signed Intake Vital Signs 07/11/24 16:18 12/01/24 17:10 12/06/24 09:29 Height 5 ft 5 in 5 ft 5 in 5 ft 5 in BP Intake Visit Reasons: Follow up Allergies adhesive tape Allergy (Intermediate, Verified 12/01/24 17:12) Rash latex Allergy (Mild, Verified 12/01/24 17:12) rash Penicillins Allergy (Verified 12/01/24 17:12) Shortness of breath oxycodone Adverse Reaction (Intermediate, Verified 12/01/24 17:12) Nausea citalopram (From Celexa) Adverse Reaction (Verified 12/01/24 17:12) Other [facility] Medical History History of echocardiogram Wears glasses History of renal disease Anemia Fatty liver Easy bruising Injury of head and neck History of edema Osteoarthritis of left knee Left knee pain Abnormal glucose YOEL (generalized anxiety disorder) Panic disorder Chronic bilateral low back pain without sciatica Rosacea Former smoker Essential hypertension Obesity Back pain Vitamin D deficiency Hypoparathyroidism Osteoarthritis HTN (hypertension) Low calcium levels Chronic headaches Anxiety Carpal tunnel syndrome Back problem Arthritis Seasonal allergies Surgical History History of carpal tunnel surgery of left wrist Hx of colonoscopy S/P endometrial ablation History of adenoidectomy Family History Brother Asthma Autoimmune disorder Diabetes Hypertension Kidney disease Mental disorder Mother Arthritis Blood clot in vein Diabetes Mental disorder Hyperlipidemia Grandmother Cancer Melanoma Grandfather Myocardial infarction Heart disease Hyperlipidemia Social History household members: family and children current occupation: Works at [employer] Smoking Status: Former smoker pack-years: 6 how long ago did patient quit smokin years alcohol intake: never substance use type: does not use what type of physical activity do you participate in: none do you feel safe at home: Yes HPI History of Present Illness HPI: Ioana Fletcher is a 54 year-old female returning for therapy. She reported that all areas of life are stressful for her (work, living with mother, and son's response to mother). Ioana identified her anxiety as an 8 or a 9 on a scale from 1 to 10 with 10 being worst. She stated that she continues to have panic attacks particularly when driving but also times at home with no apparent trigger. Ioana reported avoidance of leaving the house and is aware that this strengthens panic symptoms. She identified that Propranolol once was effective at reducing panic symptoms but has become less effective. She stated that she has addressed this with her psychiatrist, Dr. Bellamy, and does not want to go through the difficulty of a medication change. Encouraged verbalization of emotions while providing support. Normalized emotions. The main themes that emerged during the session were working through difficult interpersonal relationships, recent relational conflicts, dealing with panic and anxiety states, and minimal emotional support from family. Explored ways of addressing and better managing anxieties and fears. Encouraged Ioana to consider if charting panic attacks could be helpful, which she will consider. She has previously done so and does not recall it being effective. Worked on strategies to re-frame thoughts about self related to panic attacks. Encouraged use of self-compassion role playing examples of self-compassion. Provided assistance with coping skills. Reinforced use of breathing, distraction, and transition time from home to work. Ioana showed reponsiveness to considering and implementing self-compassion strategies. No SI. Future-oriented. Exam Mental Status Exam - Psych Appearance casually dressed and adequately groomed Attitude engaged Activity/Motor Behavior MSE activity/motor behavior finding no adventitious movements and appropriate eye contact Speech regular rate, regular volume and regular prosody Mood anxious Affect constricted and blunted Thought Process linear, logical and coherent Thought Content no delusions and no hallucinations Suicidal Ideation none Homicidal Ideation none Attention intact Concentration intact Sensorium/Orientation alert and oriented x3 Memory/Cognition intact Insight good Judgement good Assessment Plan Assessment Plan (1) YOEL (generalized anxiety disorder): Adarsh (more content not included)... Normal [facility] Chiropractic Reporton 2024 Chiropractic Report [facility] [address], [place] [id number] OFFICE VISIT Date of Service: 12/01/24 MR#: [id number] Acct: [id number] Name: IOANA FLETCHER Rep #: [id number] : 1970 Provider: GLEN Dwyer Age/Sex: 54/F Location: [facility] [place] Status: Signed Intake Vital Signs 10/10/24 16:19 11/15/24 06:55 12/01/24 17:10 Height 5 ft 5 in 5 ft 5 in 5 ft 5 in Weight: 288 lb 3 oz BMI 47.9 BP 120/62 Blood Pressure Location Lt brachial Position Sitting Intake Visit Reasons: REEVAL Chief Complaint: Neck Stiffness [employer] Par[employer]er Required: No Accompanied by: Self Is patient in pain?: Yes Pain scale (1-10): 4 Allergies adhesive tape Allergy (Intermediate, Verified 12/01/24 17:12) Rash latex Allergy (Mild, Verified 12/01/24 17:12) rash Penicillins Allergy (Verified 12/01/24 17:12) Shortness of breath oxycodone Adverse Reaction (Intermediate, Verified 12/01/24 17:12) Nausea citalopram (From Celexa) Adverse Reaction (Verified 12/01/24 17:12) Other Medications ???Medication ???Instructions ???Recorded ???Confirmed ???Type calcium 600 mg capsule 600 mg PO BID 09/12/21 12/01/24 Hi story nifedipine 60 mg tablet,extended 60 mg PO QHS 07/31/23 12/01/24 His tory release spironolactone 25 mg tablet 25 mg PO QDAY 02/18/24 12/01/24 Hi story calcitriol 0.5 mcg capsule 0.5 mcg PO .qd, BID on #120 07/18/24 12/01/24 Rx caps desvenlafaxine succinate 50 mg 50 mg PO DAILY 30 days #30 tabs 12/01/24 Rx tablet,extended release 24 hr mirtazapine 30 mg tablet 30 mg PO QHS #30 tabs 09/07/24 Rx labetalol 200 mg tablet 200 mg PO TID 09/20/24 12/01/24 Hi story losartan 100 mg tablet 100 mg PO DAILY 09/20/24 12/01/24 History clonazepam 0.5 mg tablet 0.5 mg PO DAILY PRN anxiety 30 08/2612/01/24 Rx days #30 tabs PFSH Medical History History of echocardiogram Wears glasses History of renal disease Anemia Fatty liver Easy bruising Injury of head and neck History of edema Osteoarthritis of left knee Left knee pain Abnormal glucose YOEL (generalized anxiety disorder) Panic disorder Chronic bilateral low back pain without sciatica Rosacea Former smoker Essential hypertension Obesity Back pain Vitamin D deficiency Hypoparathyroidism Osteoarthritis HTN (hypertension) Low calcium levels Chronic headaches Anxiety Carpal tunnel syndrome Back problem Arthritis Seasonal allergies Surgical History History of carpal tunnel surgery of left wrist Hx of colonoscopy S/P endometrial ablation History of adenoidectomy Family History Brother Asthma Autoimmune disorder Diabetes Hypertension Kidney disease Mental disorder Mother Arthritis Blood clot in vein Diabetes Mental disorder Hyperlipidemia Grandmother Cancer Melanoma Grandfather Myocardial infarction Heart disease Hyperlipidemia Social History household members: family and children current occupation: Works at [employer] Smoking Status: Former smoker pack-years: 6 how long ago did patient quit smokin years alcohol intake: never substance use type: does not use what type of physical activity do you participate in: none do you feel safe at home: Yes HPI REEVAL Chief Complaint: Neck stiffness Visit Number: 1 Details: Ioana is a 54 y/o female who presents in Chiropractic today with a complaint of some stiffness in her neck and it is present with some tightness. The LBP is persistent with a 4/10 pain level and is achy and sore,banding across the low back. Patient states she has been dealing with Vertigo for about 3-4 weeks and is located on the right side. Patient states that laying on the right side tends to worsen the pain and stiffness. Patient states there has been no new injury, denies numbness, tingling, radiculopathy. Chiropractic adjustments have been beneficial in the past. Location: Neck Duration: frequent Aggravating or associated factors: ROM, laying down Relieving factors: benedryl Pain Quality: aching and dull Exam Musc General: Yes normal gait, joint tenderness and decreased range of motion; No normal posture or muscle weakness Cervical Spine: Yes loss of normal cervical lordosis, Yes cervical muscular tenderness right greater than left diffuse , Yes pain with cervical ROM with lateral flexion to right, with lateral flexion to left, with rotation to right and with anterior flexion, Yes cervical spasm right greater than left diffuse trapezius and paracervical muscles and Yes misalignment misalignment: C1, C2, C5 and C6 (more content not included)... Normal [facility] MR/BMS.BPon 11-15-2024 MR/BMS.BP [address], [address] [place] [address] OFFICE VISIT Date of Service: 11/14/24 MR#: [id number] Acct: [id number] Name: IOANA FLETCHER Rep #: [id number] : 1970 Provider: CECELIA dickerson Age/Sex: 54/F Location: [facility] [place] Status: Signed Intake Vital Signs 07/11/24 16:18 10/10/24 16:19 11/15/24 06:55 Height 5 ft 5 in 5 ft 5 in 5 ft 5 in Weight: 277 lb BMI 46.0 BP 141/88 H Blood Pressure Location Lt brachial Position Sitting Respiration 16 Pulse 80 Pulse Source Monitor BP Intake Visit Reasons: Follow up Allergies adhesive tape Allergy (Intermediate, Verified 10/10/24 16:23) Rash latex Allergy (Mild, Verified 10/10/24 16:23) rash Penicillins Allergy (Verified 10/10/24 16:23) Shortness of breath oxycodone Adverse Reaction (Intermediate, Verified 10/10/24 16:23) Nausea citalopram (From Celexa) Adverse Reaction (Verified 10/10/24 16:23) Other [facility] Medical History History of echocardiogram Wears glasses History of renal disease Anemia Fatty liver Easy bruising Injury of head and neck History of edema Osteoarthritis of left knee Left knee pain Abnormal glucose YOEL (generalized anxiety disorder) Panic disorder Chronic bilateral low back pain without sciatica Rosacea Former smoker Essential hypertension Obesity Back pain Vitamin D deficiency Hypoparathyroidism Osteoarthritis HTN (hypertension) Low calcium levels Chronic headaches Anxiety Carpal tunnel syndrome Back problem Arthritis Seasonal allergies Surgical History History of carpal tunnel surgery of left wrist Hx of colonoscopy S/P endometrial ablation History of adenoidectomy Family History Brother Asthma Autoimmune disorder Diabetes Hypertension Kidney disease Mental disorder Mother Arthritis Blood clot in vein Diabetes Mental disorder Hyperlipidemia Grandmother Cancer Melanoma Grandfather Myocardial infarction Heart disease Hyperlipidemia Social History household members: family and children current occupation: Works at [employer] Smoking Status: Former smoker pack-years: 6 how long ago did patient quit smokin years alcohol intake: never substance use type: does not use what type of physical activity do you participate in: none do you feel safe at home: Yes HPI History of Present Illness HPI: Ioana Fletcher is a 54 year-old female returning for therapy. She reported increased stressors including medical issues (covid, kidney stone/surgery, and vertigo) and interactions with mother. Encouraged verbalization of emotions while providing support. Normalized emotions. Ioana described times of attempting to be appropriately assertive with mother and guilt when she does so. Problem- solved options for managing mother's behaviors. Worked on feelings of guilt using CBT interventions. Discussed trauma reminders related to mother's behaviors. Worked on coping reviewing coping strategies. Ioana has found breathing helpful. No SI. Future-oriented. Exam Mental Status Exam - Psych Appearance casually dressed Attitude engaged Activity/Motor Behavior MSE activity/motor behavior finding no adventitious movements and appropriate eye contact Speech regular rate, regular volume and regular prosody Mood anxious Affect constricted and blunted Thought Process linear, logical, coherent and goal directed Thought Content no delusions and no hallucinations Suicidal Ideation none Homicidal Ideation none Attention intact Concentration intact Sensorium/Orientation alert and oriented x3 Memory/Cognition intact Insight good Judgement good Assessment Plan Assessment Plan (1) YOEL (generalized anxiety disorder): Plan: therapy using CBT, DBT, and ACT interventions to address thought patterns contributing to anxious symptoms and to teach coping skills. Psychiatric services to monitor anxious symptoms and medication effectiveness. (2) Panic disorder: Plan: therapy using CBT, DBT, and ACT interventions to address thought patterns contributing to panic symptoms and to teach coping skills. Psychiatric services to monitor panic symptoms and medication effectiveness. Plan Treatment Plan Goal 1 - Reduce overall frequency, intensity, and duration of the anxiety so daily functioning is improved AEB pt.'s report of reduced anxious symptoms. Objective 1 - Learn and implement at least 3 calming skills to reduce overall level of anxiety and manage anxious symptoms. Intervention 1 - Teach pt. calming/relaxation skills and teach how to apply (more content not included)... Normal [facility] Protein+Creatinine Ratio,Uri neon 11-08-2024 Protein (U) [Mass/Vol] 10.4 mg/dL Normal 0.0-12.0 [facility] Comment on above: Order Comment: WRONG URINE WAS ORDERED ON PT. TUBE IS IN LAB Performed By: #### L 500.3600, L501.0900 ####[facility] [address] [place], [address] Renal Profileon 11-08-2024 Albumin [Mass/Vol] 4.3 g/dL Normal 3.5-5.0 [facility] Comment on above: Performed By: #### L 500.3600, L501.0900 ####[facility] [address] [place], [address] BUN/CRE 18.6 RATIO Normal 10-20 [facility] Comment on above: Performed By: #### L 500.3600, L501.0900 ####[facility] [address] [place], [address] Calcium [Mass/Vol] 9.4 mg/dL Normal 7.6-11.0 [facility] Comment on above: Performed By: #### L 500.3600, L501.0900 ####[facility] [address] [place], [address] Chloride [Moles/Vol] 100 mmol/L Normal 98-108 [facility] Comment on above: Performed By: #### L 500.3600, L501.0900 ####[facility] [address] [place], [address] CO2 [Moles/Vol] 27.2 mmol/L Normal 21.0-32.0 [facility] Comment on above: Performed By: #### L 500.3600, L501.0900 ####[facility] [address] [place], [address] Creatinine [Mass/Vol] 1.35 mg/dL High 0.70-1.20 [facility] Comment on above: Performed By: #### L 500.3600, L501.0900 ####[facility] [address] [place], [address] GAP 12 Normal 5-15 [facility] Comment on above: Performed By: #### L 500.3600, L501.0900 ####[facility] [address] [place], [address] GFR/1.73 sq M.predicted among non-blacks MDRD (S/P/Bld) [Vol rate/Area] 47 mL/min/{1.73_m2} Low >60 [facility] Comment on above: Result Comment: mL/m in/1.73m2 CKD-EPI Creatinine Equation (2020) Performed By: #### L 500.3600, L501.0900 ####[facility] [address] [place], [address] Glucose [Mass/Vol] 124 mg/dL High 70-99 [facility] Comment on above: Performed By: #### L 500.3600, L501.0900 ####[facility] [address] [place], [address] Phosphate [Mass/Vol] 3.8 mg/dL Normal 2.7-4.5 [facility] Comment on above: Performed By: #### L 500.3600, L501.0900 ####[facility] [address] [place], [address] Potassium [Moles/Vol] 4.1 mmol/L Normal 3.3-5.1 [facility] Comment on above: Performed By: #### L 500.3600, L501.0900 ####[facility] [address] [place], [address] Sodium [Moles/Vol] 139 mmol/L Normal 133-145 [facility] Comment on above: Performed By: #### L 500.3600, L501.0900 ####[facility] [address] [place], [address] Urea nitrogen [Mass/Vol] 25 mg/dL High - [facility] Comment on above: Performed By: #### L 500.3600, L501.0900 ####[facility] [address] [place], [address] SCRN MAMM (CAD)W/HETAL BILATo n 10-25-2024 SCRN MAMM (CAD)W/HETAL BILAT [facility] Imaging Services [address] [place] [address] SCRN MAMM (CAD)W/HETAL BILAT MR#: [id number] Acct: [id number] Name: IOANA FLETCHER Rep #: [id number] : 1970 F 54 From: Miladis Hairston i, MD PCP: Dr. Brendon Saenz, Status: [facility] Study: SCRN MAMM (CAD)W/HETAL BILAT Date of Exam: 10/03 08/26 Exam# [id number] Ordering Dr: Brendon Saenz DO EXAM: SCRN MAMM (CAD)W/HETAL BILAT DATE: 10/25/2024 CLINICAL HISTORY: F, Age 54 y/o , SCREENING TECHNIQUE: SCRN MAMM (CAD)W/HETAL BILAT COMPARISON: Prior exam(s) were compared FINDINGS: TISSUE DENSITY: The breast tissue is composed of scattered areas of fibroglandular density. Bilateral Breast Mammographic Findings: No suspicious masses, calcifications or other abnormalities are identified. BI/SCRN MAMM (CAD)W/HETAL BILAT IMPRESSION: No mammographic evidence of malignancy in either breast OVERALL FINAL ASSESSMENT BI-RADS 1: NEGATIVE. RECOMMEND ANNUAL MAMMOGRAPHIC SCREENING. RECOMMENDATION: Routine annual follow-up in 1 Year A letter with findings and recommendations will be mailed to the patient. Reading Location: [id number] CC: Dr. Brendon Saenz, Soil Science Teacher: Signed Normal [facility] MR/BMS.BPon 10-10-2024 MR/BMS.BP [address], [address] [place] [address] OFFICE VISIT Date of Service: 10/10/24 MR#: [id number] Acct: [id number] Name: IOANA FLETCHER Rep #: [id number] : 1970 Provider: Dr. Moy Beth se, DO Age/Sex: 53/F Location: [facility] [place] Status: Signed Intake Vital Signs 07/11/24 16:18 09/22/24 08:25 10/10/24 16:19 Height 5 ft 5 in 5 ft 5 in 5 ft 5 in Weight: 277 lb BMI 46.0 BP 141/88 H Blood Pressure Location Lt brachial Position Sitting Respiration 16 Pulse 80 Pulse Source Monitor BP Intake Visit Reasons: 3 M FU Accompanied by: Self Allergies adhesive tape Allergy (Intermediate, Verified 10/10/24 16:23) Rash latex Allergy (Mild, Verified 10/10/24 16:23) rash Penicillins Allergy (Verified 10/10/24 16:23) Shortness of breath oxycodone Adverse Reaction (Intermediate, Verified 10/10/24 16:23) Nausea citalopram (From Celexa) Adverse Reaction (Verified 10/10/24 16:23) Other Medications ???Medication ???Instructions ???Recorded ???Confirmed ???Type calcium 600 mg capsule 600 mg PO BID 09/12/21 10/10/24 Hi story nifedipine 60 mg tablet,extended 60 mg PO QHS 07/31/23 10/10/24 His tory release spironolactone 25 mg tablet 25 mg PO QDAY 02/18/24 10/10/24 Hi story calcitriol 0.5 mcg capsule 0.5 mcg PO .qd, BID on - #120 07/18/24 10/10/24 Rx caps desvenlafaxine succinate 50 mg 50 mg PO DAILY 30 days #30 tabs 10/10/24 Rx tablet,extended release 24 hr mirtazapine 30 mg tablet 30 mg PO QHS #30 tabs 09/07/2401/26 Rx labetalol 200 mg tablet 200 mg PO TID 09/20/24 10/10/24 Hi story losartan 100 mg tablet 100 mg PO DAILY 09/20/24 10/10/24 History clonazepam 0.5 mg tablet 0.5 mg PO DAILY PRN anxiety 30 08/2610/10/24 Rx days #30 tabs PFSH Medical History History of echocardiogram Wears glasses History of renal disease Anemia Fatty liver Easy bruising Injury of head and neck History of edema Osteoarthritis of left knee Left knee pain Abnormal glucose YOEL (generalized anxiety disorder) Panic disorder Chronic bilateral low back pain without sciatica Rosacea Former smoker Essential hypertension Obesity Back pain Vitamin D deficiency Hypoparathyroidism Osteoarthritis HTN (hypertension) Low calcium levels Chronic headaches Anxiety Carpal tunnel syndrome Back problem Arthritis Seasonal allergies Surgical History History of carpal tunnel surgery of left wrist Hx of colonoscopy S/P endometrial ablation History of adenoidectomy Family History Brother Asthma Autoimmune disorder Diabetes Hypertension Kidney disease Mental disorder Mother Arthritis Blood clot in vein Diabetes Mental disorder Hyperlipidemia Grandmother Cancer Melanoma Grandfather Myocardial infarction Heart disease Hyperlipidemia Social History household members: family and children current occupation: Works at [employer] Smoking Status: Former smoker pack-years: 6 how long ago did patient quit smokin years alcohol intake: never substance use type: does not use what type of physical activity do you participate in: none do you feel safe at home: Yes HPI History of Present Illness History provided by: patient HPI: Ioana Fletcher is a 53 year old female who presents today for follow up evaluation. Patient reports to having COVID in July then a kidney stone in September, so had been feeling under the weather. Describes mood as hanging in there. States that this is neither good nor bad. Has been having both depression and anxiety. 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 This does add to day to day stress. Has limited motivation when she comes home from work. Has been following with [facility] intermittently. Does feel like medication is helping. Denies any significant side effects from medications. Has been sleeping well, getting about 6 hours of consistent sleep. Mom continues to be a stressor at home, and she continues to buy a lot [employer] things at home, and has now started shopping for [employer]. Has reduced her clonazepam back to about every other day. Review of Systems Constitutional Denies: fever(s), chills, change in weight or fatigue Eyes Denies: change in vision or blurry vision Ears, Nose, Mouth, Throat Denies: throat pain, neck pain or change in hearing Cardiovascular Denies: chest pain, palpitations or dyspnea Respiratory Denies: dyspnea, cough or wheezing Gastrointestinal Denies: abdominal pain, nausea, vomiting, diarrhea or constipation Genit (more content not included)... Normal [facility] Discharge Instructionon 09-02 Discharge Instruction [facility] Medical Records Department [address] [place] [address] Instructions for Home/Discharge Instructions 09/22/24 1040 MR#: [id number] Acct: [id number] Name: IOANA FLETCHER Rep #: [id number] : 1970 53 From: Latesha Cardenas MD PCP: Dr. Brendon Saenz, Status:[facility] [place] Discharge Instructions Diet Discharge Diet: No restrictions Activity Discharge Activity: Return to Normal Activity Dressing / Incision Call your doctor if you observe: Fever of 101 or Higher, Inability to urinate and Inability to have a bowel movement Follow Up Care Please Follow Up With: Latesha Cardenas MD When: The office will call her to make follow-up arrangements. Test Results: Test results from this visit will be discussed in further detail at your follow-up appointment, if applicable. Discharge Plan Admission Attending Provider: Latesha Cardenas Primary Care Provider: Brendon Saenz Instructions Print Language: Estonian Discharge Orders/Prescriptions Prescriptions: Continued spironolactone 25 mg tablet 25 mg PO QDAY calcium 600 mg Capsule 600 mg PO BID nifedipine 60 mg tablet extended release 60 mg PO QHS oxycodone-acetaminophen 5-325 mg tablet 1 tab PO Q6H PRN PRN (Reason: pain) 5 Days Qty: 20 0RF ondansetron 4 mg tablet,disintegrating 4 mg PO Q6H PRN PRN (Reason: Nausea) Qty: 15 0RF labetalol 200 mg tablet 200 mg PO TID losartan 100 mg tablet 100 mg PO DAILY phenazopyridine 200 mg tablet 200 mg PO TID clonazepam 0.5 mg tablet 0.5 mg PO DAILY PRN (Reason: anxiety) 30 Days Qty: 30 2RF calcitriol 0.5 mcg capsule 0.5 mcg PO .qd, BID on Qty: 120 2RF desvenlafaxine succinate 50 mg tablet extended release 24 hr 50 mg PO DAILY 30 Days Qty: 30 2RF mirtazapine 30 mg tablet 30 mg PO QHS Qty: 30 2RF Discontinued tamsulosin 0.4 mg capsule 0.4 mg PO DAILY Referrals / Follow Up: Brendon Saenz DO [Primary Care Provider] - Disposition Disposition (needs filled in before D/C Order can be placed): Home, Self Care 09/22/24 1049 Latesha Cardenas MD CC: Dr. Brendon Saenz DO Signed ADDENDUM by Dr. Latesha Cardenas MD on 09/22/24 at 1049 . 09/22/24 1049 Latesha Cardenas MD cc: Dr. Brendon Saenz DO * Signed [facility] MR/POSTOP.[facility] 09-22-2024 MR/POSTOP.[place] Medical Records Department [address] [place] [address] Anesthesia Postop Eval I 09/22/24 1048 MR#: [id number] Acct: [id number] Name: IOANA FLETCHER Rep #: [id number] : 1970 53 From: Aaron Hankins CRNA PCP: Dr. Brendon Saenz DO Status:REG SDC Y Race: C Location: [address] Anesthesia: Postop Eval I Current Vital Signs Temperature: 36.4 F Pulse Rate: 64 Blood Pressure: 106/66 Respiratory Rate: 18 Pulse Ox: 92 Oxygen Delivery Method: Nasal Cannula Oxygen Flow Rate (L/min): 2 Assessment Airway patent: Yes Spontaneous unlabored respirations: Yes Mental status: Awake nausea: No Vomiting: No Anesthesia Complication: No Fluid Hydration Crystalloid volume administer (ml): 1,000 Total IV fluid infused: 1,000 Progress Note Anesthesia document: Postop Eval 1 completed: Yes 09/22/24 1049 Date Aaron Hankins MICROARRAY OPERATIONS VICE PRESIDENT Cosigner Signature: Date CC: Signed Normal [facility] MR/[id number] 09-22-2024 [facility] Medical Records Department [address] [place] [address] Anesthesia Postop Eval II 09/22/24 1303 MR#: [id number] Acct: [id number] Name: IOANA FLETCHER Rep #: [id number] : 1970 53 From: Cedrick Patel MD PCP: Dr. Brendon Saenz, DO Status:[facility] Y Race: C Location: [facility] Anesthesia Postop Eval I Sum Postop Eval Completion status Anesthesia document: Postop Eval 1 completed: Yes Anesthesia Postop Eval I Summary Anesthesia Postop Eval I Summary: Anesthesia Postop Eval I: Assessment Summary Airway patent Yes 09/22/24 10:49 MICROARRAY [employer]PERATIONS VICE PRESIDENT.JBOR Spontaneous unlabored Yes 09/22/24 10:49 MICROARRAY OPERATIONS VICE PRESIDENT.JBOR respirations Mental status Awake 09/22/24 10:49 MICROARRAY OPERATIONS VICE PRESIDENT.JBOR nausea No 09/22/24 10:49 MICROARRAY [employer]PERATIONS VICE PRESIDENT.JBOR Vomiting No 09/22/24 10:49 MICROARRAY OPERATIONS VICE PRESIDENT.JBOR Anesthesia Postop Eval I: Fluid Summary Crystalloid volume administer 1,000 09/22/24 10:49 MICROARRAY OPERATIONS VICE PRESIDENT.JBOR (ml) Colloids volume administered ( ml) Blood Product volume administered (ml) Total IV fluid infused 1,000 09/22/24 10:49 MICROARRAY OPERATIONS VICE PRESIDENT.JBOR Anesthesia Postop Eval I: Summary Notes Anesthesia Complication No 09/22/24 10:49 MICROARRAY OPERATIONS VICE PRESIDENT.JBOR Anesthesia Complication Comment: Post-operative progress note Anesthesia: Postop Eval II Evaluation Mental status: Awake Pain Level: 0 nausea: No Vomiting: No 09/22/24 1303 Date Cedrick Grfifin Signature: Date CC: Signed Normal [facility] Operative Reporton 5 Operative Report [facility] Medical Records Department [address] [place] [address] Operative Report 09/22/24 1049 MR#: [id number] Acct: [id number] Name: IOANA FLETCHER Rep #: [id number] : 1970 53 From: Latesha Cardenas MD PCP: Dr. Brendon Saenz, DO Status:[facility] Location: [place] [address] Operative Report (Standard) Operative Information Date of Procedure: 09/22/24 Pre-Operative Diagnosis: Right ureteral calculus Post-Operative Diagnosis: Same, passed Surgery/Procedure Performed: Cystoscopy, right ureteroscopy double cut off saw operator: No Type of Anesthesia: General RN Documented Start/Stop Times: Operation Date: 09/22/24 09:35 Case Time Into Pre-Op 09/22/24 08:08 Out of Pre-Op 09/22/24 10:04 Anesthesia Start 09/22/24 10:08 Into Room 09/22/24 10:08 Procedure Start 09/22/24 10:24 Procedure End 09/22/24 10:32 Anesthesia End 09/22/24 10:42 Out of Room 09/22/24 10:42 Procedure Start Time: 10:24 Procedure Stop Time: 10:32 Select all DRAINS/GRAFTS/IMPLANTS that apply: None Estimated Blood Loss: <5cc Specimen collected: No Description of surgery: The patient is a 53-year-old female with an obstructing right distal ureteral calculus who presents for surgical intervention. Informed consent was obtained. She was taken to the operating room and placed on the operating room table. Anesthesia monitored the head, neck, airway, IV access and vital signs throughout the case. Once anesthesia was appropriately administered, she was placed into dorsolithotomy position and was prepped and draped in usual sterile fashion. The cystoscope was inserted through the urethra under direct visualization into the urinary bladder. The bladder mucosa in its entirety was visualized. The mucosa on the area of the trigone surrounding the right ureteral orifice was significantly edematous and irritated. The remainder of the bladder appeared within normal limits. Her bladder size was significant. The right ureter was intubated gently with a 0.035 Glidewire. This advanced all the way into the renal pelvis is seen on fluoroscopy. The semirigid ureteroscope was then utilized to cannulate the distal right ureter and it advanced easily all the way up to the renal pelvis without evidence of mass, erythema or stone. The ureter was significantly dilated consistent with a recent distal ureteral calculus. At this time the ureteroscope and the Glidewire were removed. She was awakened and taken to the recovery room in good condition. There were no complications during the procedure. Surgical Findings: Stone had passed, ureter was dilated no other abnormal findings Complications Complications: No Admit VTE Documentation VTE Present on Admission: Yes VTE Mechan Device Prophylaxis: SCD's VTE Pharm Prophylaxis ordered?: No Reason prophylaxis not ordered: Treatment Not Indicated 09/22/24 3869 Cosigner Signature (if applicable): CC: Dr. Latesha Cardenas MD; Dr. Brendon Saenz DO Signed Normal [facility] ,Urineon 09-22-2024 Beta HCG ( test) Ql (U) Negative Normal [facility] Comment on above: Result Comment: Very dilute urine specimens, as indicated by a low specific gravity, may not contain accounts receivable representative levels of hCG. If is still suspected, a first morning urine specimen should be collected 48 hours later and tested. Performed By: #### L 400.7600 ####[facility] [id number] [place], [place], [address] /[place]ee Dee 09-20-2024 /PAT.[place] Medical Records Department [address] [address] PAT - Anesthesia 09/20/24 1547 MR#: [id number] Acct: [id number] Name: IOANA FLETCHER Rep #: [id number] : 1970 53 From: Cedrick Patel MD PCP: Dr. 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 When Was Last Pacemaker Check QUESTION #4 FULL TEXT: You/Your Family Experience fever (hyperthermia) with Anesthesia Last Oral Intake Last Oral intake: Last Oral Intake NPO since Meds taken in AM with sips of water? 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 PONV - parachute inspector: PONV - parachute inspector Female Yes 09/20/24 14:39 HX of Motion Sickness No 09/20/24 14:39 HX of N/V After Surgery No 09/20/24 14:39 Non-Smoker Yes 09/20/24 14:39 Duration of Surgery greater No 09/20/24 14:39 than 60 minutes Number of Risk Factors 2 09/20/24 14:39 PONV Score Moderate Risk 09/20/24 14:39 Height Weight Height Weight: Anesthesia: Height Weight Height 5 ft 5 in 09/13/24 21:43 Respiratory Assessment Respiratory Assessment - parachute inspector: Respiratory Tract Infection Hx - parachute inspector Hx Respiratory Tract Infection No 09/20/24 14:39 STOP Sleep Apnea STOP Sleep Apnea - parachute inspector: STOP Sleep Apnea - parachute inspector Hx Hypertension Yes: CONTROLLED ON MED 09/20/24 14:39 Hx Sleep Apnea No 09/20/24 14:39 CPAP BIPAP Do you snore loudly (louder No 09/20/24 14:39 than talking or can be heard Do you often feel tired/ No 09/20/24 14:39 fatigued/ sleepy during daytime? Has anyone observed you stop No 09/20/24 14:39 breathing during sleep? STOP Results Negative 09/20/24 14:39 QUESTION #5 FULL TEXT : Do you snore loudly (louder than talking or can be heard through closed doors)? Tobacco Use History Tobacco Use History - parachute inspector: Tobacco Use History - parachute inspector Tobacco Use Smoking Status Former smoker 09/20/24 14:39 Hx Tobacco Use No 09/20/24 14:39 Years Smoking Packs Smoked per Day Smoking Cessation Date was No - quit smoking greater 09/20/24 14:39 within the last 15 years than 15 years ago Hx Smoking Cessation Date 05/04/01 09/20/24 14:39 Hx Smoking Cessation Counseling Hematologic Medial History Hematologic Hx - parachute inspector: Hematologic Medical Hx - attenuator Hx of Blood Transfusion No 09/20/24 14:39 Hx of Transfusion in last 3 No 09/20/24 14:39 Months Date of Last Transfusion (if within last 3 months) Ever experience any problems No 09/20/24 14:39 with transfusion(s)? Specify any problems Hx of Preganancy in last 3 No 09/20/24 14:39 Months Nurse Filling Out Transfusion VCHRISTIN 09/20/24 14:39 Questions: Date: 09/20/24 09/20/24 14:39 Time: 14:40 09/20/24 14:39 Patient unable to answer at this time (ie. confused, unrespo /Reproduction History /Reproductive History - parachute inspector: /Reproductive Hx- parachute inspector Hx Now No 09/20/24 14:39 Gestational Age (in weeks): EDC: Hx Hx Para Hx Section SAB No 09/20/24 14:39 PFSH Medical History (Updated 09/20/24 @ 14:37 by Adela Moran) History of echocardiogram Wears glasses History of renal disease Anemia Fatty liver Easy bruising Injury of head and neck History of edema Osteoarthritis of left knee Left knee pain Abnormal glucose YOEL (generalized anxiety disorder) Panic disorder Chronic bilateral low back pain without sciatica Rosacea Former smoker Essential hypertension Obesity Back pain Vitamin D deficiency Hypoparathyroidism Osteoarthritis HTN (hypertension) Low calcium levels Chronic headaches Anxiety Carpal tunnel syndrome Back problem Arthritis Seasonal allergies Home Medications ???Medication ???Instructions ???Recorded ???Last Taken ???Type calcium 600 mg c (more content not included)... Normal [facility] MR/PAT.ANE [facility] Medical Records Department [address] [place] [address] PAT - Anesthesia 09/20/24 1541 MR#: [id number] Acct: [id number] Name: IOANA FLETCHER Rep #: [id number] : 1970 53 From: Cedrick Patel MD PCP: Dr. 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 When Was Last Pacemaker Check QUESTION #4 FULL TEXT: You/Your Family Experience fever (hyperthermia) with Anesthesia Last Oral Intake Last Oral intake: Last Oral Intake NPO since Meds taken in AM with sips of water? 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 PONV - parachute inspector: PONV - parachute inspector Female Yes 09/20/24 14:39 HX of Motion Sickness No 09/20/24 14:39 HX of N/V After Surgery No 09/20/24 14:39 Non-Smoker Yes 09/20/24 14:39 Duration of Surgery greater No 09/20/24 14:39 than 60 minutes Number of Risk Factors 2 09/20/24 14:39 PONV Score Moderate Risk 09/20/24 14:39 Height Weight Height Weight: Anesthesia: Height Weight Height 5 ft 5 in 09/13/24 21:43 Respiratory Assessment Respiratory Assessment - parachute inspector: Respiratory Tract Infection Hx - parachute inspector Hx Respiratory Tract Infection No 09/20/24 14:39 STOP Sleep Apnea STOP Sleep Apnea - parachute inspector: STOP Sleep Apnea - parachute inspector Hx Hypertension Yes: CONTROLLED ON MED 09/20/24 14:39 Hx Sleep Apnea No 09/20/24 14:39 CPAP BIPAP Do you snore loudly (louder No 09/20/24 14:39 than talking or can be heard Do you often feel tired/ No 09/20/24 14:39 fatigued/ sleepy during daytime? Has anyone observed you stop No 09/20/24 14:39 breathing during sleep? STOP Results Negative 09/20/24 14:39 QUESTION #5 FULL TEXT : Do you snore loudly (louder than talking or can be heard through closed doors)? Tobacco Use History Tobacco Use History - parachute inspector: Tobacco Use History - parachute inspector Tobacco Use Smoking Status Former smoker 09/20/24 14:39 Hx Tobacco Use No 09/20/24 14:39 Years Smoking Packs Smoked per Day Smoking Cessation Date was No - quit smoking greater 09/20/24 14:39 within the last 15 years than 15 years ago Hx Smoking Cessation Date 05/04/01 09/20/24 14:39 Hx Smoking Cessation Counseling Hematologic Medial History Hematologic Hx - parachute inspector: Hematologic Medical Hx - attenuator Hx of Blood Transfusion No 09/20/24 14:39 Hx of Transfusion in last 3 No 09/20/24 14:39 Months Date of Last Transfusion (if within last 3 months) Ever experience any problems No 09/20/24 14:39 with transfusion(s)? Specify any problems Hx of Preganancy in last 3 No 09/20/24 14:39 Months Nurse Filling Out Transfusion VCHRISTIN 09/20/24 14:39 Questions: Date: 09/20/24 09/20/24 14:39 Time: 14:40 09/20/24 14:39 Patient unable to answer at this time (ie. confused, unrespo /Reproduction History /Reproductive History - parachute inspector: /Reproductive Hx- parachute inspector Hx Now No 09/20/24 14:39 Gestational Age (in weeks): EDC: Hx Hx Para Hx Section SAB No 09/20/24 14:39 [facility] Medical History (Updated 09/20/24 @ 14:37 by Adela Moran) History of echocardiogram Wears glasses History of renal disease Anemia Fatty liver Easy bruising Injury of head and neck History of edema Osteoarthritis of left knee Left knee pain Abnormal glucose YOEL (generalized anxiety disorder) Panic disorder Chronic bilateral low back pain without sciatica Rosacea Former smoker Essential hypertension Obesity Back pain Vitamin D deficiency Hypoparathyroidism Osteoarthritis HTN (hypertension) Low calcium levels Chronic headaches Anxiety Carpal tunnel syndrome Back problem Arthritis Seasonal allergies Home Medications ???Medication ???Instructions ???Recorded ???Last Taken ???Type calcium 600 mg c (more content not included)... Normal [facility] Urine Cultureon 09-14-2024 [facility] Comments: please run if WBC in urine Mixed Gram Positive Organisms [place] Count 11,000-25,000 MIXC Mixed contaminants. Submit a new specimen if indicated. Normal [facility] Comment on above: Performed By: #### L 400.0001, M100.2200 #### [facility] [address] [place], [place], [address] Abdomen/Pelvis without Conto n 09-13-2024 Abdomen/Pelvis without Cont [facility] Imaging Services [address] [place] [address] Abdomen/Pelvis without Cont MR#: [id number] Acct: [id number] Name: IOANA FLETCHER Rep #: [id number] : 1970 F 53 From: Jono duffy MD PCP: Dr. Brendon Saenz DO Status: REG ER Study: Abdomen/Pelvis without Cont Date of Exam: 09/01 07/26 Exam# [id number] Ordering Dr: Ramon Mccoy DO PROCEDURE: ABDOMEN/PELVIS WITHOUT CONT 09/13/2024 REASON FOR EXAM: KIDNEY STONE TECHNIQUE: Abdomen and pelvis CT without intravenous contrast. Noncontrast technique limits evaluation of the abdominal and pelvic viscera. Coronal and Sagittal reconstruction series were provided. One or more dose reduction techniques were used (e.g., Automated exposure control, adjustment of the mA and/or kV according to patient size, use of iterative reconstruction technique). PATIENT PREPARATION: Per protocol ORAL CONTRAST TYPE: None. AMOUNT: mL COMPARISON: None FINDINGS: Lung bases: Bibasilar atelectasis. Liver: Hepatic steatosis. No focal lesion. Gallbladder: No ductal dilation. Cholelithiasis. No wall thickening or pericholecystic fluid. Spleen: Normal size. Pancreas: Normal size. No surrounding inflammation. Adrenals: Normal Kidneys: 6 mm distal right ureteral obstructing calculus (series 601 image 95), with moderate hydroureteronephrosis and perinephric soft tissue stranding. No left calculi or hydronephrosis. Bladder: Urinary bladder is unremarkable. Reproductive Organs: No pelvic mass. Bowel: Stomach is unremarkable. No bowel dilation or wall thickening. Moderate colonic stool. Appendix: Normal appendix. Lymph nodes: 10 mm aortocaval node (series 2 image 77) otherwise, no suspicious abdominopelvic adenopathy. Vasculature: The abdominal aorta and IVC contours are normal. Noncontrast technique limits evaluation. Peritoneum / Retroperitoneum: No ascites. No pneumoperitoneum. Bones: Unremarkable. Soft tissue: Mild subcutaneous edema. CT/Abdomen/Pelvis without Cont IMPRESSION: 6 mm distal right ureteral obstructing calculus with moderate hydroureteronephrosis and perinephric soft tissue stranding. Hepatic steatosis without focal lesion. Cholelithiasis. OVERALL FINAL ASSESSMENT: . LI-RADS is not meant to be used in patients <18 years or patients with cirrhosis due to congenital hepatic fibrosis or due to vascular disorders, because these patients have a lower chance of developing HCC. Reading Location: [facility] CC: Dr. Ramon Mccoy, DO; Dr. Brendon Saenz, DO Soil Science Teacher: Signed Normal [facility] CBC W/Diff, Automatedon 09-01 Absolute Lymph 1.33 X10 3/uL Normal 0.83-4.51 [facility] Comment on above: Performed By: #### L 700.6800, L100.0100 ####[facility] [address] [place], [address] Absolute Neut 10.1 X10 3/uL High 2.0-7.7 [facility] Comment on above: Performed By: #### L 700.6800, L100.0100 ####[facility] [address] [place], [address] Basophils/100 WBC (Bld) 0.3 % Normal 0-1 [facility] Comment on above: Performed By: #### L 700.6800, L100.0100 ####[facility] [address] [place], [address] Eosinophils/100 WBC (Bld) 2.1 % Normal 0-5 [facility] Comment on above: Performed By: #### L 700.6800, L100.0100 ####[facility] [address] [place], [address] Erythrocyte distribution width (RBC) [Ratio] 12.9 % Normal 11.6-14.6 [facility] Comment on above: Performed By: #### L 700.6800, L100.0100 ####[facility] [address] [place], [address] Hematocrit (Bld) [Volume fraction] 35.6 % Low 37-47 [facility] Comment on above: Performed By: #### L 700.6800, L100.0100 ####[facility] [address] [place], [address] Hemoglobin (Bld) [Mass/Vol] 11.9 g/dL Low 12.0-15.0 [facility] Comment on above: Performed By: #### L 700.6800, L100.0100 ####[facility] [address] [place], [address] IG% 0.300 Normal 0.0-0.9 [facility] Comment on above: Result Comment: IG% - Immature Granulocytes (promyelocytes, myelocytes and metamyelocytes) > 1% indicates that a LEFT SHIFT is Present. Performed By: #### L 700.6800, L100.0100 ####[facility] [address] [place], [address] Lymphocytes/100 WBC (Bld) 10.8 % Low 19-41 [facility] Comment on above: Performed By: #### L 700.6800, L100.0100 ####[facility] [address] [place], [address] MCH (RBC) [Entitic mass] 30.3 pg Normal 27.0-32.0 [facility] Comment on above: Performed By: #### L 700.6800, L100.0100 ####[facility] [address] [place], [address] MCHC (RBC) [Mass/Vol] 33.4 g/dL Normal 32-36 [facility] Comment on above: Performed By: #### L 700.6800, L100.0100 ####[facility] [address] [place], [address] MCV (RBC) [Entitic vol] 90.6 fL Normal 81-99 [facility] Comment on above: Performed By: #### L 700.6800, L100.0100 ####[facility] [address] [place], [address] Monocytes/100 WBC (Bld) 4.9 % Normal 0-10 [facility] Comment on above: Performed By: #### L 700.6800, L100.0100 ####[facility] [address] [place], [address] Neutrophils/100 WBC (Bld) 81.6 % High 47-70 [facility] Comment on above: Performed By: #### L 700.6800, L100.0100 ####[facility] [address] [place], [address] Nucleated RBC (Bld) [#/Vol] 0 10*3/uL Normal 0-5 [facility] Comment on above: Performed By: #### L 700.6800, L100.0100 ####[facility] [address] [place], [address] Platelet mean volume (Bld) [Entitic vol] 10.3 fL Normal 6.2-12.0 [facility] Comment on above: Performed By: #### L 700.6800, L100.0100 ####[facility] [address] [place], [address] Platelets (Bld) [#/Vol] 318 10*3/uL Normal 150-450 [facility] Comment on above: Performed By: #### L 700.6800, L100.0100 ####[facility] [address] [place], [address] RBC (Bld) [#/Vol] 3.93 10*6/uL Low 4.2-5.4 [facility] Comment on above: Performed By: #### L 700.6800, L100.0100 ####[facility] [address] [place], [address] RDW SD 43.0 fl Normal 35.1-43.9 [facility] Comment on above: Performed By: #### L 700.6800, L100.0100 ####[facility] [address] [place], [address] WBC (Bld) [#/Vol] 12.4 10*3/uL High 4.4-11.0 [facility] Comment on above: Performed By: #### L 700.6800, L100.0100 ####[facility] [address] [place], [address] Emergency Department Summary on 09-13-2024 Emergency Department [facility] Department [address] [place] [address] Emergency Department Summary 09/13/24 MR#: [id number] Acct: [id number] Name: IOANA FLETCHER Rep #: [id number] : 1970 53 From: Ramon Mccoy DO PCP: Dr. Brendon Saenz DO Status:DEP ER Location: ED HPI History of Present Illness Chief Complaint: Flank Pain Informant: patient Narrative Narrative: 53-year-old female presenting to the emergency room with right flank right lower abdomen discomfort and urinary frequency. Patient states that last week she had an episode of flank pain that resolved within the day. She states that she had a urine specimen performed by Dr. Juares her machine room engineer. She states that she was started on Macrobid. That urinalysis demonstrated 5-10 squamous cells 3+ bacteria calcium oxalate crystals 0-5 whites. Patient states that today she developed the same pain in her right flank right lower abdomen described more as an ache. She notes some associated nausea but no vomiting. No fevers. She denies any dysuria during the active urination but discomfort otherwise. She notes urinary frequency about every 10 minutes. She has not noticed any blood in the urine. No bowel changes. Patient notes that she cannot find a position of comfort. [facility] Medical History Wears glasses History of renal disease Anemia Fatty liver Easy bruising Injury of head and neck History of edema Osteoarthritis of left knee Left knee pain Abnormal glucose YOEL (generalized anxiety disorder) Panic disorder Chronic bilateral low back pain without sciatica Rosacea Former smoker Essential hypertension Obesity Back pain Vitamin D deficiency Hypoparathyroidism Osteoarthritis HTN (hypertension) Low calcium levels Chronic headaches Anxiety Carpal tunnel syndrome Back problem Arthritis Seasonal allergies Home Medications ???Medication ???Instructions ???Recorded ???Last Taken ???Type calcium 600 mg capsule 600 mg PO BID 09/12/21 09/11/21 Hi story labetalol 100 mg tablet 100 mg PO TID 06/25/23 08/05/23 09 :00 History nifedipine 60 mg tablet,extended 60 mg PO QHS 07/31/23 Unknown Hist ory release spironolactone 25 mg tablet 25 mg PO QDAY 02/18/24 Unknown His tory clonazepam 0.5 mg tablet 0.5 mg PO DAILY PRN anxiety 30 Unknown Rx days #30 tabs calcitriol 0.5 mcg capsule 0.5 mcg PO .qd, BID on - #120 07/18/24 Unknown Rx caps desvenlafaxine succinate 50 mg 50 mg PO DAILY 30 days #30 tabs Unknown Rx tablet,extended release 24 hr mirtazapine 30 mg tablet 30 mg PO QHS #30 tabs 09/07/24 Unk nown Rx nitrofurantoin 100 mg PO BID #10 caps 09/12/24 Un known Rx monohydrate/macrocrystals 100 mg capsule (Macrobid) ondansetron 4 mg disintegrating 4 mg PO Q6H PRN PRN Nausea #15 tab s 09/14/24 Unknown Rx tablet oxycodone-acetaminophen 5 mg-325 1 tab PO Q6H PRN PRN pain 5 days 0 09/14/24 Unknown Rx mg tablet #20 TABLETS Allergy/AdvReac Type Severity Reaction Status Date / Time adhesive tape Allergy Intermediate Rash Verified 09/13/24 21:43 latex Allergy Mild rash Verified 09/13/24 21:43 Penicillins Allergy Shortness Verified 09/13/24 21:43 of breath citalopram (From Celexa) AdvReac Other Verified 09/13/24 21:43 Family History Brother Asthma Autoimmune disorder Diabetes Hypertension Kidney disease Mental disorder Mother Arthritis Blood clot in vein Diabetes Mental disorder Hyperlipidemia Grandmother Cancer Melanoma Grandfather Myocardial infarction Heart disease Hyperlipidemia Surgical History History of carpal tunnel surgery of left wrist Hx of colonoscopy S/P endometrial ablation History of adenoidectomy Social History household members: family and children current occupation: Works at [employer] Smoking Status: Former smoker pack-years: 6 how long ago did patient quit smokin years alcohol intake: never substance use type: does not use what type of physical activity do you participate in: none do you feel safe at home: Yes ROS ROS ED Constitutional Constitutional ED: Denies chills, fever(s) or weight loss Eyes Eyes: Denies change in vision or diplopia ENT ENT ED: Denies ear pain, rhinorrhea or sore throat Cardiovascular Cardiovascular: Denies chest pain, orthopnea, palpitations or racing heartbeat Respiratory/Chest Respiratory/Chest: Denies cough, dyspnea or orthopnea Gastrointestinal Gastrointestinal: Reports abdominal pain and nausea; Denies diarrhea or vomiting Genitourinary Genitourinary ED: Reports (more content not included)... Normal [facility] ,Serum,hCG Quali.on 09-13-2024 HCG, SERUM QUAL Normal [facility] Comment on above: Result Comment: Canc elled via OM: order changed Performed By: #### L 700.6800, L100.0100 ####[facility] [address] [place], [address] INTERNAL QC OK? Normal [facility] Comment on above: Result Comment: Canc elled via OM: order changed Performed By: #### L 700.6800, L100.0100 ####[facility] [address] [place], [address] RECORD KIT LOT# Normal [facility] Comment on above: Result Comment: Canc elled via OM: order changed Performed By: #### L 700.6800, L100.0100 ####[facility] [address] [place], [address] ,Urineon 09-13-2024 Beta HCG ( test) Ql (U) Negative [facility] Comment on above: Result Comment: Very dilute urine specimens, as indicated by a low specific gravity, may not contain accounts receivable representative levels of hCG. If is still suspected, a first morning urine specimen should be collected 48 hours later and tested. Performed By: #### L 400.0001, M100.2200 #### [facility] [address] [place], [address] Urinalysis, Completeon 09-13 BACTERIA 1+ /hpf Normal None Seen [facility] Comment on above: Order Comment: pleas e run if WBC in urine GATE ATTENDANT TO SPECIFY Performed By: #### L 400.0001, M1.2199 #### [facility] [address] [place], [address] EPI,SQUAMOUS 0-5 SEEN Normal 5-10 [facility] Comment on above: Order Comment: pleas e run if WBC in urine GATE ATTENDANT TO SPECIFY Performed By: #### L 400.0001, .2199 #### [facility] [address] [place], [address] RBC 25-50 SEEN Normal 0-5 [facility] Comment on above: Order Comment: pleas e run if WBC in urine GATE ATTENDANT TO SPECIFY Performed By: #### L 400.0001, .2199 #### [facility] [address] [place], [address] WBC 10-25 SEEN Normal 0-5 [facility] Comment on above: Order Comment: pleas e run if WBC in urine GATE ATTENDANT TO SPECIFY Performed By: #### L 400.0001, .2199 #### [facility] [address] [place], [address] BILIRUBIN URINE Negative Normal Negative [facility] Comment on above: Order Comment: pleas e run if WBC in urine GATE ATTENDANT TO SPECIFY Performed By: #### L 400.0001, .2199 #### [facility] [address] [place], [address] Clarity (U) Clear Normal Clear [facility] Comment on above: Order Comment: pleas e run if WBC in urine GATE ATTENDANT TO SPECIFY Performed By: #### L 400.0001, M1.2199 #### [facility] [address] [place], [address] Color (U) Yellow Normal Yellow [facility] Comment on above: Order Comment: pleas e run if WBC in urine GATE ATTENDANT TO SPECIFY Performed By: #### L 400.0001, M1.2199 #### [facility] [address] [place], [address] GLUCOSE, UR Normal Normal Normal [facility] Comment on above: Order Comment: pleas e run if WBC in urine GATE ATTENDANT TO SPECIFY Performed By: #### L 400.0001, .0 #### [facility] [address] [place], [address] KETONE UR Negative Normal Negative [facility] Comment on above: Order Comment: pleas e run if WBC in urine GATE ATTENDANT TO SPECIFY Performed By: #### L 400.0001, .2199 #### [facility] [address] [place], [address] LEUK ESTERASE 25 /ul Abnormal Negative [facility] Comment on above: Order Comment: pleas e run if WBC in urine GATE ATTENDANT TO SPECIFY Performed By: #### L 400.0001, #### [facility] [address] [place], [address] Nitrite Ql (U) Negative Normal Negative [facility] Comment on above: Order Comment: pleas e run if WBC in urine GATE ATTENDANT TO SPECIFY Performed By: #### L 400.0001, #### [facility] [address] [place], [address] OCCULT BLOOD-UR 250 /ul Abnormal Negative [facility] Comment on above: Order Comment: pleas e run if WBC in urine GATE ATTENDANT TO SPECIFY Performed By: #### L 400.0001, .2199 #### [facility] [address] [place], [address] pH UR 6.0 Normal 5.0 - 8.0 [facility] Comment on above: Order Comment: pleas e run if WBC in urine GATE ATTENDANT TO SPECIFY Performed By: #### L 400.0001, M1.2199 #### [facility] [address] [place], [address] PROT DIPSTX 30 mg/dl Abnormal Negative [facility] Comment on above: Order Comment: pleas e run if WBC in urine GATE ATTENDANT TO SPECIFY Performed By: #### L 400.0001, M100.2200 #### [facility] [address] [place], [address] SP.GR. DIPSTX 1.015 Normal 1.002-1.030 [facility] Comment on above: Order Comment: pleas e run if WBC in urine GATE ATTENDANT TO SPECIFY Performed By: #### L 400.0001, M100.2200 #### [facility] [address] [place], [address] UROBILI Normal Normal Normal [facility] Comment on above: Order Comment: pleas e run if WBC in urine GATE ATTENDANT TO SPECIFY Performed By: #### L 400.0001, M100.2200 #### [facility] [address] [place], [address] Mucus Ql (Urine sed) 0 SEEN Normal [facility] Comment on above: Order Comment: pleas e run if WBC in urine GATE ATTENDANT TO SPECIFY Performed By: #### L 400.0001, M100.2200 #### [facility] [address] [place], [address] Urinalysis, Completeon 09-12 AMORPHOUS 1+ Normal [facility] Comment on above: Order Comment: pleas e run if WBC in urine GATE ATTENDANT TO SPECIFY Performed By: #### L 400.0001, M100.2200 #### [facility] [address] [place], [address] BACTERIA 3+ /hpf Normal None Seen [facility] Comment on above: Order Comment: pleas e run if WBC in urine GATE ATTENDANT TO SPECIFY Performed By: #### L 400.0001, M100.2200 #### [facility] [address] [place], [address] CA OX CRYSTAL 1+ /hpf Normal [facility] Comment on above: Order Comment: pleas e run if WBC in urine GATE ATTENDANT TO SPECIFY Performed By: #### L 400.0001, M100.2200 #### [facility] [address] [place], [address] EPI,SQUAMOUS 5-10 SEEN Normal 5-10 [facility] Comment on above: Order Comment: pleas e run if WBC in urine GATE ATTENDANT TO SPECIFY Performed By: #### L 400.0001, M100.2200 #### [facility] [address] [place], [address] RBC 0-5 SEEN Normal 0-5 [facility] Comment on above: Order Comment: pleas e run if WBC in urine GATE ATTENDANT TO SPECIFY Performed By: #### L 400.0001, M100.2200 #### [facility] [address] [place], [address] WBC 0-5 SEEN Normal 0-5 [facility] Comment on above: Order Comment: pleas e run if WBC in urine GATE ATTENDANT TO SPECIFY Performed By: #### L 400.0001, M100.2200 #### [facility] [address] [place], [address] Mucus Ql (Urine sed) 0 SEEN Normal [facility] Comment on above: Order Comment: pleas e run if WBC in urine GATE ATTENDANT TO SPECIFY Performed By: #### L 400.0001, M100.2200 #### [facility] [address] [place], [address] /Stephania 08-05-2024 / [address], [address] [place] [address] OFFICE VISIT Date of Service: 08/04/24 MR#: [id number] Acct: [id number] Name: IOANA FLETCHER Rep #: [id number] : 1970 Provider: [facility] Coral dickerson Age/Sex: 53/F Location: [facility] [place] Status: Signed Intake Vital Signs 04/29/24 12:12 07/11/24 16:18 08/05/24 07:02 Height 5 ft 5 in 5 ft 5 in 5 ft 5 in BP 147/85 H Blood Pressure Location Lt brachial Position Sitting Respiration 16 Pulse 88 Pulse Source Monitor BP Intake Visit Reasons: follow up Allergies adhesive tape Allergy (Intermediate, Verified 07/11/24 16:21) Rash latex Allergy (Mild, Verified 07/11/24 16:21) rash Penicillins Allergy (Verified 07/11/24 16:21) Shortness of breath citalopram (From Celexa) Adverse Reaction (Verified 07/11/24 16:21) Other [facility] Medical History Wears glasses History of renal disease Anemia Fatty liver Easy bruising Injury of head and neck History of edema Osteoarthritis of left knee Left knee pain Abnormal glucose YOEL (generalized anxiety disorder) Panic disorder Chronic bilateral low back pain without sciatica Rosacea Former smoker Essential hypertension Obesity Back pain Vitamin D deficiency Hypoparathyroidism Osteoarthritis HTN (hypertension) Low calcium levels Chronic headaches Anxiety Carpal tunnel syndrome Back problem Arthritis Seasonal allergies Surgical History History of carpal tunnel surgery of left wrist Hx of colonoscopy S/P endometrial ablation History of adenoidectomy Family History Brother Asthma Autoimmune disorder Diabetes Hypertension Kidney disease Mental disorder Mother Arthritis Blood clot in vein Diabetes Mental disorder Hyperlipidemia Grandmother Cancer Melanoma Grandfather Myocardial infarction Heart disease Hyperlipidemia Social History household members: family and children current occupation: Works at [employer] Smoking Status: Former smoker pack-years: 6 how long ago did patient quit smokin years alcohol intake: never substance use type: does not use what type of physical activity do you participate in: none do you feel safe at home: Yes HPI History of Present Illness HPI: Ioana Fletcher is a 53 year-old female returning for therapy. 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 Ioana identified her anxiety as an 8 on a scale from 1 to 10 with 10 being worst. She stated that she is having fewer panic attacks. Encouraged verbalization of emotions while providing support. Normalized emotions. Explored coping. Ioana has been using squared breathing. Taught and led Ioana in practicing 5-5-8-2 breathing as a breathing technique with a longer exhalation to increase relaxation. Provided psychoeducation on practicing breathing when relaxed to increase the effectiveness of the skill transferring during times of anxiety and psychoeducation on diaphragmatic breathing. Ioana is having sleep difficulties. She is delaying falling asleep to delay how quickly morning comes as she is anxious in the mornings before work. Once asleep, she awakens multiple times throughout the night and has difficulty resuming sleep. Taught and provided a handout on sleep protocol with focus on a sleep meditation. Reinforced her implementing relaxation techniques such as stretching, massage, and icing muscle she tenses throughout the day. She reported consistently injuring her tongue while sleeping from biting tongue. She is seeing her dentist soon and will explore whether she is also clenching or grinding her teeth. No SI. Future-oriented. Exam Mental Status Exam - Psych Appearance well kempt Attitude cooperative and engaged Activity/Motor Behavior MSE activity/motor behavior finding no adventitious movements and appropriate eye contact Speech regular rate, regular volume and regular prosody Mood anxious Affect full range Thought Process linear, logical, coherent and goal directed Thought Content no delusions and no hallucinations Suicidal Ideation none Homicidal Ideation none Attention intact Concentration intact Sensorium/Orientation alert and oriented x3 Memory/Cognition intact Insight good Judgement good Assessment Plan Assessment Plan (1) YOEL (generalized anxiety disorder): Plan: BH therapy using CBT, DBT, and ACT interventions to address thought patterns contributing to anxious symptoms and to teach coping skills. Psychiatric services to monitor anxious symptoms and medication effectiveness. (more content not included)... Normal [facility] MR/BMS.BPon 07-11-2024 MR/BMS.BP [facility] [address] [place] [address] OFFICE VISIT Date of Service: 07/11/24 MR#: [id number] Acct: [id number] Name: IOANA FLETCHER Rep #: [id number] : 1970 Provider: Dr. Moy Ford See se, DO Age/Sex: 53/F Location: [facility] [place]BP Status: Signed Intake Vital Signs 03/14/24 16:17 07/05/24 11:36 07/11/24 16:18 Height 5 ft 5 in 5 ft 5 in 5 ft 5 in BP 147/85 H Blood Pressure Location Lt brachial Position Sitting Respiration 16 Pulse 88 Pulse Source Monitor BP Intake Visit Reasons: 4 M FU Accompanied by: Self Allergies adhesive tape Allergy (Intermediate, Verified 07/11/24 16:21) Rash latex Allergy (Mild, Verified 07/11/24 16:21) rash Penicillins Allergy (Verified 07/11/24 16:21) Shortness of breath citalopram (From Celexa) Adverse Reaction (Verified 07/11/24 16:21) Other Medications ???Medication ???Instructions ???Recorded ???Confirmed ???Type calcium 600 mg capsule 600 mg PO BID 09/12/21 07/11/24 Hi story labetalol 100 mg tablet 100 mg PO TID 06/25/23 07/11/24 Hi story nifedipine 60 mg tablet,extended 60 mg PO QHS 07/31/23 07/11/24 His tory release calcitriol 0.5 mcg capsule 0.5 mcg PO .qd, BID on -W- #120 10/13/23 07/11/24 Rx caps spironolactone 25 mg tablet 25 mg PO QDAY 02/18/24 07/11/24 Hi story clonazepam 0.5 mg tablet 0.5 mg PO DAILY PRN anxiety 30 07/11/24 Rx days #30 tabs desvenlafaxine succinate 50 mg 50 mg PO DAILY 30 days #30 tabs 07/11/24 Rx tablet,extended release 24 hr mirtazapine 30 mg tablet 30 mg PO QHS #30 tabs 06/16/2402/25 Rx PFSH Medical History Wears glasses History of renal disease Anemia Fatty liver Easy bruising Injury of head and neck History of edema Osteoarthritis of left knee Left knee pain Abnormal glucose YOEL (generalized anxiety disorder) Panic disorder Chronic bilateral low back pain without sciatica Rosacea Former smoker Essential hypertension Obesity Back pain Vitamin D deficiency Hypoparathyroidism Osteoarthritis HTN (hypertension) Low calcium levels Chronic headaches Anxiety Carpal tunnel syndrome Back problem Arthritis Seasonal allergies Surgical History History of carpal tunnel surgery of left wrist Hx of colonoscopy S/P endometrial ablation History of adenoidectomy Family History Brother Asthma Autoimmune disorder Diabetes Hypertension Kidney disease Mental disorder Mother Arthritis Blood clot in vein Diabetes Mental disorder Hyperlipidemia Grandmother Cancer Melanoma Grandfather Myocardial infarction Heart disease Hyperlipidemia Social History household members: family and children current occupation: Works at [employer] Smoking Status: Former smoker pack-years: 6 how long ago did patient quit smokin years alcohol intake: never substance use type: does not use what type of physical activity do you participate in: none do you feel safe at home: Yes HPI History of Present Illness History provided by: patient HPI: Ioana Fletcher is a 53 year old female who presents today for follow up evaluation. Patient reports that she has been fiona. Admits that she has had a lot of anxiety and has been having more panic attacks over the last 3 weeks. Had been sick for about 5 weeks with bronchitis and this has affected her mood. 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 Has been having panic attacks nearly every day prior to work, although they are mild and she is able to calm self relatively quickly per self report. Has been trying not to take clonazepam every day, but has found she is taking more in the last few weeks. Does feel like pristiq and mirtazapine in helpful. Has been following with [facility] about once a month or so. Sleep had been pretty poor in recent past secondary to being sick, getting about 5 hours at night. Review of Systems Constitutional Denies: fever(s), chills, change in weight or fatigue Eyes Denies: change in vision or blurry vision Ears, Nose, Mouth, Throat Denies: throat pain, neck pain or change in hearing Cardiovascular Denies: chest pain, palpitations or dyspnea Respiratory Denies: dyspnea, cough or wheezing Gastrointestinal Denies: abdominal pain, nausea, vomiting, diarrhea or constipation Genitourinary Denies: dysuria or urinary frequency Musculoskeletal Reports: extremity pain (carpal tunnel pain) and joint pain; Denies: back pain, neck pain or muscle weakness Integumentary/Breast Denies: rash, pruritus or new lesions Neurological Denies: headache(s), lac (more content not included)... Normal [facility] MR/BMS.BPon 07-05-2024 MR/BMS.BP [facility] [address], [address] [place] [address] OFFICE VISIT Date of Service: 07/04/24 MR#: [id number] Acct: [id number] Name: IOANA FLETCHER Rep #: [id number] : 1970 Provider: [facility] Coral dickerson Age/Sex: 53/F Location: [facility] [place]BP Status: Signed Intake Vital Signs 04/29/24 12:12 05/24/24 07:05 07/05/24 11:36 Height 5 ft 5 in 5 ft 5 in 5 ft 5 in BP Intake Visit Reasons: follow up Allergies adhesive tape Allergy (Intermediate, Verified 06/24/24 15:05) Rash latex Allergy (Mild, Verified 06/24/24 15:05) rash Penicillins Allergy (Verified 06/24/24 15:05) Shortness of breath citalopram (From Celexa) Adverse Reaction (Verified 06/24/24 15:05) Other [facility] Medical History Wears glasses History of renal disease Anemia Fatty liver Easy bruising Injury of head and neck History of edema Osteoarthritis of left knee Left knee pain Abnormal glucose YOEL (generalized anxiety disorder) Panic disorder Chronic bilateral low back pain without sciatica Rosacea Former smoker Essential hypertension Obesity Back pain Vitamin D deficiency Hypoparathyroidism Osteoarthritis HTN (hypertension) Low calcium levels Chronic headaches Anxiety Carpal tunnel syndrome Back problem Arthritis Seasonal allergies Surgical History History of carpal tunnel surgery of left wrist Hx of colonoscopy S/P endometrial ablation History of adenoidectomy Family History Brother Asthma Autoimmune disorder Diabetes Hypertension Kidney disease Mental disorder Mother Arthritis Blood clot in vein Diabetes Mental disorder Hyperlipidemia Grandmother Cancer Melanoma Grandfather Myocardial infarction Heart disease Hyperlipidemia Social History household members: family and children current occupation: Works at [employer] Smoking Status: Former smoker pack-years: 6 how long ago did patient quit smokin years alcohol intake: never substance use type: does not use what type of physical activity do you participate in: none do you feel safe at home: Yes HPI History of Present Illness HPI: Ioana Fletcher is a 53 year-old female returning for therapy. She reported panic attacks after lengthy period of time without panic attacks. Explored recent stressors, which included physical illness and work stressors. Encouraged verbalization of emotions while providing support. Worked on coping skills. Provided psychoeducation and handout of 5-4-3-2-1 grounding skill. Practiced implementing and discussed how to apply in daily living. Also provided psychoeducation and practice on tactile grounding skill. Ioana has previously used guided imagery and music with success to manage anxious and panic symptoms. Explored how to implement both. Discussed DBT skill distress tolerance skill self-soothing. Ioana has also previously used boxed breathing. Reviewed this skill for use when her respiratory symptoms are resolved. Ioana identified ongoing stressors in her interactions with her mother but is finding acceptance effective. No SI. Future-oriented. Exam Mental Status Exam - Psych Appearance well kempt Attitude cooperative, calm, engaged and pleasant Activity/Motor Behavior MSE activity/motor behavior finding no adventitious movements and appropriate eye contact Speech regular rate, regular volume and regular prosody Mood anxious Affect full range Thought Process linear, logical, coherent and goal directed Thought Content no delusions and no hallucinations Suicidal Ideation none Homicidal Ideation none Attention intact Concentration intact Sensorium/Orientation awake, alert and oriented x3 Memory/Cognition intact Insight good Judgement good Assessment Plan Assessment Plan (1) YOEL (generalized anxiety disorder): Plan: therapy using CBT, DBT, and ACT interventions to address thought patterns contributing to anxious symptoms and to teach coping skills. Psychiatric services to monitor anxious symptoms and medication effectiveness. (2) Panic disorder: Plan: therapy using CBT, DBT, and ACT interventions to address thought patterns contributing to panic symptoms and to teach coping skills. Psychiatric services to monitor anxious symptoms and medication effectiveness. Plan Treatment Plan (04/25/2024) Goal 1 - Reduce overall frequency, intensity, and duration of the anxiety so daily functioning is improved AEB pt.'s report of reduced anxious symptoms. Objective 1 - Learn and implement at least 3 calming skills to reduce overall level of anxiety and manage anxious symptoms. Intervention 1 - T (more content not included)... Normal [facility] Urgent Care Visit Reporton 0 06-24-2024 Urgent Care Visit Report [facility] [address], [address] [place] [address] OFFICE VISIT Date of Service: 06/24/24 MR#: [id number] Acct: [id number] Name: IOANA FLETCHER Rep #: [id number] : 1970 Provider: DINORAH Alejandro Age/Sex: 53/F Location: [facility] [place] Status: Signed Intake Vital Signs 05/24/24 07:05 06/24/24 15:12 Height 5 ft 5 in Weight: 287 lb 6 oz BP 122/78 H Position Sitting Pulse 86 Temp 98.3 F Temp Source Oral Pulse Oximetry (%) 97 Oxygen Delivery Method room air Intake Visit Reasons: UPPER RESPIRATORY COMPLAINT Accompanied by: Self Allergies adhesive tape Allergy (Intermediate, Verified 06/24/24 15:05) Rash latex Allergy (Mild, Verified 06/24/24 15:05) rash Penicillins Allergy (Verified 06/24/24 15:05) Shortness of breath citalopram (From Celexa) Adverse Reaction (Verified 06/24/24 15:05) Other Medications ???Medication ???Instructions ???Recorded ???Confirmed ???Type calcium 600 mg capsule 600 mg PO BID 09/12/21 06/24/24 Hi story labetalol 100 mg tablet 100 mg PO TID 06/25/23 06/24/24 Hi story nifedipine 60 mg tablet,extended 60 mg PO QHS 07/31/23 06/24/24 His tory release calcitriol 0.5 mcg capsule 0.5 mcg PO .qd, BID on - #120 10/13/23 06/24/24 Rx caps spironolactone 25 mg tablet 25 mg PO QDAY 02/18/24 06/24/24 Hi story clonazepam 0.5 mg tablet 0.5 mg PO DAILY PRN anxiety 30 06/24/24 Rx days #30 tabs desvenlafaxine succinate 50 mg 50 mg PO DAILY 30 days #30 tabs 06/24/24 Rx tablet,extended release 24 hr mirtazapine 30 mg tablet 30 mg PO QHS #30 tabs 06/16/24 Rx albuterol sulfate 90 mcg/actuation 2 puff inhalation Q4-6H PRN 06/0506/24/24 Rx aerosol inhaler shortness of breath or wheezing #6.7 grams azithromycin 250 mg tablet See Rx Instructions PO .COMPLEX #6 06/24/24 06/24/24 Rx tabs methylprednisolone 4 mg tablets in 4 mg PO PER PKG DIR 6 days #21 t abs 06/24/24 06/24/24 Rx a dose pack (Medrol (Rajesh)) Nurse's Note: Patient has cough,wheezing and ST, ears are sore and SOB. Patient states she was sick at the end of May and it left and is back again. [facility] Medical History Wears glasses History of renal disease Anemia Fatty liver Easy bruising Injury of head and neck History of edema Osteoarthritis of left knee Left knee pain Abnormal glucose YOEL (generalized anxiety disorder) Panic disorder Chronic bilateral low back pain without sciatica Rosacea Former smoker Essential hypertension Obesity Back pain Vitamin D deficiency Hypoparathyroidism Osteoarthritis HTN (hypertension) Low calcium levels Chronic headaches Anxiety Carpal tunnel syndrome Back problem Arthritis Seasonal allergies Surgical History History of carpal tunnel surgery of left wrist Hx of colonoscopy S/P endometrial ablation History of adenoidectomy Family History Brother Asthma Autoimmune disorder Diabetes Hypertension Kidney disease Mental disorder Mother Arthritis Blood clot in vein Diabetes Mental disorder Hyperlipidemia Grandmother Cancer Melanoma Grandfather Myocardial infarction Heart disease Hyperlipidemia Social History household members: family and children current occupation: Works at [employer] Smoking Status: Former smoker pack-years: 6 how long ago did patient quit smokin years alcohol intake: never substance use type: does not use what type of physical activity do you participate in: none do you feel safe at home: Yes HPI HPI Details: IOANA FLETCHER, is a 53 F who presents to the office today for complaint of cough, congestion, sore throat and intermittent shortness of breath. Patient states that this has been ongoing for the past 3 to 4 weeks. She denies fever, chills, sweats. No nausea, vomiting or diarrhea. No loss of taste or smell. No other associated symptoms or alleviating/aggravating factors. ROS Const Constitutional: No other (6 system ROS completed with pertinent findings in the HPI otherwise normal.) Exam Const General: cooperative and well developed HENMT Head: normal to inspection and atraumatic Ears: hearing grossly normal bilaterally Nose: nasal discharge clear Face and sinus: normal facial exam Mouth: oral mucosae normal Throat: abnormal tonsil bilaterally hypertrophy 1+ Resp Effort Inspection: normal respiratory effort and no audible wheezes Auscultation: Bilateral: Clear to Auscultation Cardio Palpation: normal PMI Rate: regular rate Rhythm: regular rhythm Neuro General: patient alert and (more content not included)... Normal [facility] MR/BMS.BPon 05-24-2024 MR/BMS.[address], [address] [place] [address] OFFICE VISIT Date of Service: 05/23/24 MR#: [id number] Acct: [id number] Name: IOANA FLETCHER Rep #: [id number] : 1970 Provider: [facility] Coral dickerson Age/Sex: 53/F Location: [facility] [place] Status: Signed Intake Vital Signs 03/14/24 16:17 04/29/24 12:12 05/24/24 07:05 Height 5 ft 5 in 5 ft 5 in 5 ft 5 in BP Intake Visit Reasons: follow up Allergies adhesive tape Allergy (Intermediate, Verified 03/14/24 16:26) Rash latex Allergy (Mild, Verified 03/14/24 16:26) rash Penicillins Allergy (Verified 03/14/24 16:26) Shortness of breath citalopram (From Celexa) Adverse Reaction (Verified 03/14/24 16:26) Other [facility] Medical History Wears glasses History of renal disease Anemia Fatty liver Easy bruising Injury of head and neck History of edema Osteoarthritis of left knee Left knee pain Abnormal glucose YOEL (generalized anxiety disorder) Panic disorder Chronic bilateral low back pain without sciatica Rosacea Former smoker Essential hypertension Obesity Back pain Vitamin D deficiency Hypoparathyroidism Osteoarthritis HTN (hypertension) Low calcium levels Chronic headaches Anxiety Carpal tunnel syndrome Back problem Arthritis Seasonal allergies Surgical History History of carpal tunnel surgery of left wrist Hx of colonoscopy S/P endometrial ablation History of adenoidectomy Family History Brother Asthma Autoimmune disorder Diabetes Hypertension Kidney disease Mental disorder Mother Arthritis Blood clot in vein Diabetes Mental disorder Hyperlipidemia Grandmother Cancer Melanoma Grandfather Myocardial infarction Heart disease Hyperlipidemia Social History household members: family and children current occupation: Works at [employer] Smoking Status: Former smoker pack-years: 6 how long ago did patient quit smokin years alcohol intake: never substance use type: does not use what type of physical activity do you participate in: none do you feel safe at home: Yes HPI History of Present Illness HPI: Ioana is a 53 year-old female returning for therapy. She identified ongoing work stressors but reported implementing boundaries in order to reduce extra time spent at work. Ioana reported stressors related to interactions with her mother. Encouraged verbalization of emotions while providing support. Reinforced implementing boundaries exploring thought patterns that assisted her with putting boundaries in place. Worked with Ioana at identifying what she can and cannot control, working around mother's patterns and behaviors, doing what is effective, and utilizing bibliotherapy to gain insight about mother's behavior patterns and coping. Addressed thought patterns resulting in her feeling guilt using CBT interventions. No reports of SI. Future-oriented. Exam Mental Status Exam - Psych Appearance well kempt Attitude cooperative, calm and engaged Activity/Motor Behavior MSE activity/motor behavior finding no adventitious movements and appropriate eye contact Speech regular rate, regular volume and regular prosody Mood OK Affect full range Thought Process linear, logical and coherent Thought Content no delusions and no hallucinations Suicidal Ideation none Homicidal Ideation none Attention intact Concentration intact Sensorium/Orientation alert and oriented x3 Memory/Cognition intact Insight fair Judgement good Assessment Plan Assessment Plan (1) YOEL (generalized anxiety disorder): Plan: therapy using CBT, DBT, and ACT interventions to address thought patterns contributing to anxious symptoms and to teach coping skills. Psychiatric services to monitor anxious symptoms and medication effectiveness. (2) Panic disorder: Plan: therapy using CBT, DBT, and ACT interventions to address thought patterns contributing to panic symptoms and to teach coping skills. Psychiatric services to monitor panic symptoms and medication effectiveness. Plan Treatment Plan (04/25/2024) Goal 1 - Reduce overall frequency, intensity, and duration of the anxiety so daily functioning is improved AEB pt.'s report of reduced anxious symptoms. Objective 1 - Learn and implement at least 3 calming skills to reduce overall level of anxiety and manage anxious symptoms. Intervention 1 - Teach pt. calming/relaxation skills and teach how to apply to daily living. Objective 2 - Identify, challenge, and replace biased, fearful self-talk with positive, realistic and empowering self-talk. Intervention 1 - Explore pt.'s (more content not included)... Normal [facility] Protein+Creatinine Ratio,Uri neon 05-09-2024 PROT:CRE RATIO 100 mg/g CRE Normal 0-200 [facility] Comment on above: Performed By: #### L 501.0900, L500.3600 ####[facility] [address] [place], [address] Protein (U) [Mass/Vol] 18.3 mg/dL High <11.9 [facility] Comment on above: Performed By: #### L 501.0900, L500.3600 ####[facility] [address] [place], [address] UR CREAT 183.00 mg/dL Normal NO RANGE EST. [facility] Comment on above: Performed By: #### L 501.0900, L500.3600 ####[facility] [address] [place], [address] Renal Profileon 05-09-2024 Albumin [Mass/Vol] 3.6 g/dL Normal 3.2-5.0 [facility] Comment on above: Performed By: #### L 501.0900, L500.3600 ####[facility] [address] [place], [address] BUN/CRE 16.9 RATIO Normal 10-20 [facility] Comment on above: Performed By: #### L 501.0900, L500.3600 ####[facility] [address] [place], [address] CA,Total 9.2 mg/dL Normal 8.5-10.1 [facility] Comment on above: Performed By: #### L 501.0900, L500.3600 ####[facility] [address] [place], [address] Chloride [Moles/Vol] 102 mmol/L Normal 98-107 [facility] Comment on above: Performed By: #### L 501.0900, L500.3600 ####[facility] [address] [place], [address] CO2 [Moles/Vol] 30.0 mmol/L Normal 21.0-32.0 [facility] Comment on above: Performed By: #### L 501.0900, L500.3600 ####[facility] [address] [place], [address] Creatinine [Mass/Vol] 1.36 mg/dL High 0.55-1.02 [facility] Comment on above: Result Comment: The validity of the calculated GFR GFRAA in patients over 70 years has not been determined. Clinical correlation is essential. Performed By: #### L 501.0900, L500.3600 ####[facility] [address] [place], [address] EST GFR - AA 52 mL/min Low >60 [facility] Comment on above: Result Comment: Afri can Azerbaijani GFR Calc Performed By: #### L 501.0900, L500.3600 ####[facility] [address] [place], [address] GFR/1.73 sq M.predicted among non-blacks MDRD (S/P/Bld) [Vol rate/Area] 43 mL/min/{1.73_m2} Low >60 [facility] Comment on above: Result Comment: Non- GFR Calc Performed By: #### L 501.0900, L500.3600 ####[facility] [address] [place], [address] Glucose [Mass/Vol] 166 mg/dL High 74-106 [facility] Comment on above: Result Comment: Fast ing Glucose result greater than or equal to 126 mg/dL suggests DIABETES MELLITUS per A.D.A. criteria. Performed By: #### L 501.0900, L500.3600 ####[facility] [address] [place], [address] Phosphate [Mass/Vol] 3.3 mg/dL Normal 2.5-4.9 [facility] Comment on above: Performed By: #### L 501.0900, L500.3600 ####[facility] [address] [place], [address] Potassium [Moles/Vol] 3.9 mmol/L Normal 3.5-5.1 [facility] Comment on above: Performed By: #### L 501.0900, L500.3600 ####[facility] [address] [place], [address] Sodium [Moles/Vol] 137 mmol/L Normal 136-145 [facility] Comment on above: Performed By: #### L 501.0900, L500.3600 ####[facility] [address] [place], [address] Urea nitrogen [Mass/Vol] 23 mg/dL High 7-18 [facility] Comment on above: Performed By: #### L 501.0900, L500.3600 ####[facility] [address] [place], [address] MR/BMS.BPon 04-25-2024 MR/BMS.BP [facility] [address] [place] [address], [address] [place] [address] OFFICE VISIT Date of Service: 04/25/24 MR#: [id number] Acct: [id number] Name: IOANA FLETCHER Rep #: [id number] : 1970 Provider: [facility] Coral dickerson Age/Sex: 53/F Location: [facility] [place] Status: Signed Intake Vital Signs 03/14/24 16:17 04/14/24 09:07 04/29/24 12:12 Height 5 ft 5 in 5 ft 5 in 5 ft 5 in BP Intake Visit Reasons: follow up Allergies adhesive tape Allergy (Intermediate, Verified 03/14/24 16:26) Rash latex Allergy (Mild, Verified 03/14/24 16:26) rash Penicillins Allergy (Verified 03/14/24 16:26) Shortness of breath citalopram (From Celexa) Adverse Reaction (Verified 03/14/24 16:26) Other [facility] Medical History Wears glasses History of renal disease Anemia Fatty liver Easy bruising Injury of head and neck History of edema Osteoarthritis of left knee Left knee pain Abnormal glucose YOEL (generalized anxiety disorder) Panic disorder Chronic bilateral low back pain without sciatica Rosacea Former smoker Essential hypertension Obesity Back pain Vitamin D deficiency Hypoparathyroidism Osteoarthritis HTN (hypertension) Low calcium levels Chronic headaches Anxiety Carpal tunnel syndrome Back problem Arthritis Seasonal allergies Surgical History History of carpal tunnel surgery of left wrist Hx of colonoscopy S/P endometrial ablation History of adenoidectomy Family History Brother Asthma Autoimmune disorder Diabetes Hypertension Kidney disease Mental disorder Mother Arthritis Blood clot in vein Diabetes Mental disorder Hyperlipidemia Grandmother Cancer Melanoma Grandfather Myocardial infarction Heart disease Hyperlipidemia Social History household members: family and children current occupation: Works at [employer] Smoking Status: Former smoker pack-years: 6 how long ago did patient quit smokin years alcohol intake: never substance use type: does not use what type of physical activity do you participate in: none do you feel safe at home: Yes HPI History of Present Illness HPI: Pt. is a 53 year-old female returning for therapy. She continues to feel overwhelmed about mother's hoarding and behaviors. Pt is also experiencing work stressors. She often goes to bed after completing her work day and making dinner. Pt. was able to put up [place] tree and prepare house for family holiday gathering. No SI. Future-oriented. Intervention - Encouraged verbalization of emotions while providing support. Normalized emotions. Worked on adding pleasant activities to daily living and increasing socialization. Discussed healthy assertiveness and boundaries providing psychoeducation and applying CBT interventions. Exam Mental Status Exam - Psych Appearance casually dressed and well kempt Attitude engaged and pleasant Activity/Motor Behavior MSE activity/motor behavior finding no adventitious movements and appropriate eye contact Speech regular rate, regular volume and regular prosody Mood anxious Affect congruent Thought Content no delusions and no hallucinations Homicidal Ideation none Attention intact Concentration intact Sensorium/Orientation alert and oriented x3 Memory/Cognition intact Insight good Judgement good Assessment Plan Assessment Plan (1) YOEL (generalized anxiety disorder): Plan: therapy using CBT, DBT, and ACT interventions to address thought patterns contributing to anxious symptoms and to teach coping skills. Psychiatric services to monitor anxious symptoms and medication effectiveness. (2) Panic disorder: Plan: therapy using CBT, DBT, and ACT interventions to address thought patterns contributing to panic disorder symptoms and to teach coping skills. Psychiatric services to monitor panic disorder symptoms and medication effectiveness. Plan Treatment Plan (04/25/2024) Goal 1 - Reduce overall frequency, intensity, and duration of the anxiety so daily functioning is improved AEB pt.'s report of reduced anxious symptoms. Objective 1 - Learn and implement at least 3 calming skills to reduce overall level of anxiety and manage anxious symptoms. Intervention 1 - Teach pt. calming/relaxation skills and teach how to apply to daily living. Objective 2 - Identify, challenge, and replace biased, fearful self-talk with positive, realistic and empowering self-talk. Intervention 1 - Explore pt.'s schema and self-talk contributing to fear response; assist in challenging biases; replace the distorted messages with reality based alternatives and positive, realistic self- (more content not included)... Normal [facility] MR/BMS.BPon 04-14-2024 MR/BMS.BP [facility] [address], [address] [place] [address] OFFICE VISIT Date of Service: 04/12/24 MR#: [id number] Acct: [id number] Name: IOANA FLETCHER Rep #: [id number] : 1970 [facility] Age[facility]Sex: 53/F [place]: [facility] [place] Status: Signed Intake Vital Signs 03/14/24 16:17 04/14/24 09:07 Height 5 ft 5 in 5 ft 5 in BP Intake Visit Reasons: Establish Care Allergies adhesive tape Allergy (Intermediate, Verified 03/14/24 16:26) Rash latex Allergy (Mild, Verified 03/14/24 16:26) rash Penicillins Allergy (Verified 03/14/24 16:26) Shortness of breath citalopram (From Celexa) Adverse Reaction (Verified 03/14/24 16:26) Other [facility] Medical History Wears glasses History of renal disease Anemia Fatty liver Easy bruising Injury of head and neck History of edema Osteoarthritis of left knee Left knee pain Abnormal glucose YOEL (generalized anxiety disorder) Panic disorder Chronic bilateral low back pain without sciatica Rosacea Former smoker Essential hypertension Obesity Back pain Vitamin D deficiency Hypoparathyroidism Osteoarthritis HTN (hypertension) Low calcium levels Chronic headaches Anxiety Carpal tunnel syndrome Back problem Arthritis Seasonal allergies Surgical History History of carpal tunnel surgery of left wrist Hx of colonoscopy S/P endometrial ablation History of adenoidectomy Family History Brother Asthma Autoimmune disorder Diabetes Hypertension Kidney disease Mental disorder Mother Arthritis Blood clot in vein Diabetes Mental disorder Hyperlipidemia Grandmother Cancer Melanoma Grandfather Myocardial infarction Heart disease Hyperlipidemia Social History household members: family and children current occupation: Works at [employer] Smoking Status: Former smoker pack-years: 6 how long ago did patient quit smokin years alcohol intake: never substance use type: does not use what type of physical activity do you participate in: none do you feel safe at home: Yes HPI History of Present Illness HPI: Pt. is a 53 year-old female participating in a diagnostic assessment to begin counseling. Has a history of anxiety and panic. Receives psychiatric services from Dr. Bellamy at [facility]. Has participated in counseling on and off since 21. For a number of years, received both psychiatric and counseling services through [facility], which was a positive experience for her. Reports her panic symptoms escalated 7 years ago when she had a 2 hour panic attack that began while she was driving. States that she had 2 weeks of panic around the clock. Cannot remember not having anxiety. Panic attacks started when I couldn't go to class. Has been treated at the ER for panic attacks. Has never been psychiatrically hospitalized. Recently, panic attacks have been mild. Attributes this to her medication (Pristiq, Mirtazapine, and Klonopin), being on a beta germán for high blood pressure, and recent divorce. Identifies panic attacks as situational occurring when she goes or drives somewhere but not occurring during work. Rarely leaves [place]. Went to grandson's birthday republican recently requiring her to leave [place]. Took mother and brother to a movie, which was anxiety provoking. Rates her overall anxiety (at home and at work) as a 7 on a scale of 1 to 10 with 10 being worst. Has daily headaches, which she believes are caused by stress. Experiences upper body tension when anxious. Sleeps brief periods of time and wakes up alert and unable to resume sleep. Continues throughout the night. Falls asleep during the day for brief periods of time even while sitting. When she awakens, feels confused and disoriented. Medical provider is exploring narcolepsy and a sleep disorder. Concentration is typically good. Developmental History Developmental History: Family of Origin - Middle of 3 children (older and younger brothers) born to parents. Father when pt. was 7. States stepfather was a functioning alcoholic and mother drank with him. Describes her childhood as traumatic. She often was a caregiver to her younger brother. Mother and stepfather were often incapacitated when older brother (severe asthmatic) had medical emergencies. Experienced intense fear and helplessness trying to get him help and worrying he would . Currently, both brothers live out of the area. Pt. primarily responsible for mother who has lived with her for the last 10 years. Mother's hoarding has limited pt. to her own room. Living Status - Lives wi (more content not included)... [facility] ([id number]) 1970 F Date Time Provider Department [facility] today, we recorded the following information about you: Kati Almodovar LPN 04/12/2024 11:08 AM Signed Radha from [facility] Sleep lab calling received order for patient sleep study but did not get copy of office notes, face sheet and insurance card copy be faxed to [phone]. Printed items and faxed as requested. Allergies As of Date: 04/12/2024 Noted Allergy Reaction LATEX 08/17/2013 4 - Hives PENICILLINS 12/28/2012 12 - Shortness of Breath PREDNISONE 03/19/2016 8 - GI Upset 14 - Other: See Comments Comments: [place] jittery WELLBUTRIN (BUPROPION HCL) 12/03/2016 14 - Other: See Comments Comments: sweating Date Reviewed: 03/18/2024 Reviewed by: Anu Vanegas LPN - Fully Assessed Reason for Visit: [facility] Sleep Lab requesting records [Other] Prescriptions as of 04/12/2024 - hydrocortisone (ANUSOL-HC) 25 mg suppository 1 Suppository by RECTAL route two times a day as needed (hemorrhoids/rectal pain). - losartan (COZAAR) 100 mg tablet Take 1 tablet by mouth once daily. - triamcinolone acetonide (KENALOG) 0.1 % ointment Apply to affected area two times a day. For 10-14 days. - labetalol (TRANDATE) 100 mg tablet Take 200 mg by mouth three times a day. - gabapentin (NEURONTIN) 300 mg capsule Take 1 capsule by mouth three times a day as needed for up to 30 days. - spironolactone (ALDACTONE) 50 mg tablet Take 1 tablet by mouth once daily. - NIFEdipine ER (PROCARDIA XL) 30 mg 24 hr tablet Take 1 tablet by mouth daily at bedtime. For blood pressure - calcitriol (ROCALTROL) 0.5 mcg capsule Take 0.5 mcg by mouth two times a day. - desvenlafaxine ER (PRISTIQ) 100 mg 24 hr tablet Take 50 mg by mouth once daily. - clonazePAM (KLONOPIN) 0.5 mg tablet Take 1 tablet by mouth once daily as needed for up to 30 days. - calcium carbonate/vitamin D3 (CALCIUM 500 + D ORAL) Take 2 Each by mouth once daily. - mirtazapine (REMERON) 15 mg tablet Take 30 mg by mouth daily at bedtime. Per Psych- Keyur Dubon CNP - hydrocortisone 2.5 % cream Apply 1 application to affected area daily at bedtime. Location: facial, avoid eyes/lips Problem List As Of Date 04/12/2024 Noted Resolved HYPOPARATHYROIDISM [E20.9] 09/06/2007 Morbid obesity [...] M79.605] 04/22/2017 11/23/2017 RUQ pain [R10.11] 10/23/2017 Uncontrolled hypertension [I10] 11/23/2017 Cervical (neck) region somatic dysfunction [M99*02/13/2021 Somatic dysfunction of spine, thoracic [M99.02] 02/13/2021 Acute bilateral thoracic back pain [M54.6] 02/13/2021 Myalgia [M79.10] 09/18/2022 Fatigue [R53.83] 09/18/2022 RUQ abdominal pain [R10.11] 09/18/2022 Calculus of gallbladder without cholecystitis w*09/18/2022 Obesity, Class III, BMI >= 40 [E66.01] 12/09/2022 Routine physical examination [Z00.00] 12/10/2022 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] 12/10/2022 Fatty liver [K76.0] 12/10/2022 Mixed hyperlipidemia [E78.2] 12/10/2022 Hypertension, essential [I10] 12/10/2022 Stage 3a chronic kidney disease (HCC) [N18.31] 03/17/2023 Vitamin B12 deficiency [E53.8] 03/17/2023 Borderline abnormal thyroid function test [R94.*03/17/2023 Situational anxiety [F41.8] 03/17/2023 Encounter Status:Closed by KATI ALMODOVAR on 04/12/24 Normal [facility] IgG Subclasseson 03-23-2024 IgG, SUBCLASS 1 851 mg/dL High 248-810 [facility] Comment on above: Order Comment: N Performed By: #### L 501.9520, L501.53228, L503.6030, L503.0105, L506.0400, L3200.1500, L506.1000, L500.4050, L100.0100, L3200.0500, L3200.1400, L501.9985 ####[facility] [address] [place], [address] IgG, SUBCLASS 2 524 mg/dL Normal 130-555 [facility] Comment on above: Order Comment: N Performed By: #### L 501.9520, L501.49474, L503.6030, L503.0105, L506.0400, L3200.1500, L506.1000, L500.4050, L100.0100, L3200.0500, L3200.1400, L501.9985 ####[facility] [address] [place], [address] IgG, SUBCLASS 3 96 mg/dL Normal 15-102 [facility] Comment on above: Order Comment: N Performed By: #### L 501.9520, L501.00247, L503.6030, L503.0105, L506.0400, L3200.1500, L506.1000, L500.4050, L100.0100, L3200.0500, L3200.1400, L501.9985 ####[facility] [address] [place], [address] IgG, SUBCLASS 4 39 mg/dL Normal 2-96 [facility] Comment on above: Order Comment: N Performed By: #### L 501.9520, L501.89260, L503.6030, L503.0105, L506.0400, L3200.1500, L506.1000, L500.4050, L100.0100, L3200.0500, L3200.1400, L501.9985 ####[facility] [address] [place], [address] IGG,QUANT 1630 mg/dL High 586-1602 [facility] Comment on above: Order Comment: N Performed By: #### L 501.9520, L501.14694, L503.6030, L503.0105, L506.0400, L3200.1500, L506.1000, L500.4050, L100.0100, L3200.0500, L3200.1400, L501.9985 ####[facility] [address] [place], [place], [address] Immunoglobulin Aon 4 IMMUNOGLOB A QN 179 mg/dL Normal 87-352 [facility] Comment on above: Order Comment: N Performed By: #### L 501.9520, L501.21101, L503.6030, L503.0105, L506.0400, L3200.1500, L506.1000, L500.4050, L100.0100, L3200.0500, L3200.1400, L501.9985 ####[facility] [address] [place], [place], [phone] Immunoglobulin Mon 4 IMMUNOGLOB M QN 58 mg/dL Normal 26-217 [facility] Comment on above: Order Comment: N Result Comment: Perf ormed at: - [facility] [address] [id number] Manager Cafe: Bernabe Peraza PhD, Phone: [phone] Performed By: #### L 501.9520, L501.88305, L503.6030, L503.0105, L506.0400, L3200.1500, L506.1000, L500.4050, L100.0100, L3200.0500, L3200.1400, L501.9985 ####[facility] [address] [place], [place], [phone] CBC W/Diff, Automatedon 03-04 Absolute Lymph 1.76 X10 3/uL Normal 0.83-4.51 [facility] Comment on above: Performed By: #### L 501.9520, L501.44615, L503.6030, L503.0105, L506.0400, L3200.1500, L506.1000, L500.4050, L100.0100, L3200.0500, L3200.1400, L501.9985 ####[facility] [address] [place], [place], [phone] Absolute Neut 7.7 X10 3/uL Normal 2.0-7.7 [facility] Comment on above: Performed By: #### L 501.9520, L501.69973, L503.6030, L503.0105, L506.0400, L3200.1500, L506.1000, L500.4050, L100.0100, L3200.0500, L3200.1400, L501.9985 ####[facility] [address] [place], [address] Basophils/100 WBC (Bld) 0.3 % Normal 0-1 [facility] Comment on above: Performed By: #### L 501.9520, L501.84568, L503.6030, L503.0105, L506.0400, L3200.1500, L506.1000, L500.4050, L100.0100, L3200.0500, L3200.1400, L501.9985 ####[facility] [address] [place], [address] Eosinophils/100 WBC (Bld) 1.9 % Normal 0-5 [facility] Comment on above: Performed By: #### L 501.9520, L501.07288, L503.6030, L503.0105, L506.0400, L3200.1500, L506.1000, L500.4050, L100.0100, L3200.0500, L3200.1400, L501.9985 ####[facility] [address] [place], [place], [phone] Erythrocyte distribution width (RBC) [Ratio] 13.2 % Normal 11.6-14.6 [facility] Comment on above: Performed By: #### L 501.9520, L501.40004, L503.6030, L503.0105, L506.0400, L3200.1500, L506.1000, L500.4050, L100.0100, L3200.0500, L3200.1400, L501.9985 ####[facility] [address] [place], [address] Hematocrit (Bld) [Volume fraction] 34.3 % Low 37-47 [facility] Comment on above: Performed By: #### L 501.9520, L501.74783, L503.6030, L503.0105, L506.0400, L3200.1500, L506.1000, L500.4050, L100.0100, L3200.0500, L3200.1400, L501.9985 ####[facility] [address] [place], [address] Hemoglobin (Bld) [Mass/Vol] 11.2 g/dL Low 12.0-15.0 [facility] Comment on above: Performed By: #### L 501.9520, L501.71013, L503.6030, L503.0105, L506.0400, L3200.1500, L506.1000, L500.4050, L100.0100, L3200.0500, L3200.1400, L501.9985 ####[facility] [address] [place], [address] IG% 1.000 High 0.0-0.9 [facility] Comment on above: Result Comment: IG% - Immature Granulocytes (promyelocytes, myelocytes and metamyelocytes) > 1% indicates that a LEFT SHIFT is Present. Performed By: #### L 501.9520, L501.37757, L503.6030, L503.0105, L506.0400, L3200.1500, L506.1000, L500.4050, L100.0100, L3200.0500, L3200.1400, L501.9985 ####[facility] [address] [place], [address] Lymphocytes/100 WBC (Bld) 17.4 % Low 19-41 [facility] Comment on above: Performed By: #### L 501.9520, L501.22749, L503.6030, L503.0105, L506.0400, L3200.1500, L506.1000, L500.4050, L100.0100, L3200.0500, L3200.1400, L501.9985 ####[facility] [address] [place], [place], [phone] MCH (RBC) [Entitic mass] 29.7 pg Normal 27.0-32.0 [facility] Comment on above: Performed By: #### L 501.9520, L501.45162, L503.6030, L503.0105, L506.0400, L3200.1500, L506.1000, L500.4050, L100.0100, L3200.0500, L3200.1400, L501.9985 ####[facility] [address] [place], [place], [phone] MCHC (RBC) [Mass/Vol] 32.7 g/dL Normal 32-36 [facility] Comment on above: Performed By: #### L 501.9520, L501.17981, L503.6030, L503.0105, L506.0400, L3200.1500, L506.1000, L500.4050, L100.0100, L3200.0500, L3200.1400, L501.9985 ####[facility] [address] [place], [place], [phone] MCV (RBC) [Entitic vol] 91.0 fL Normal 81-99 [facility] Comment on above: Performed By: #### L 501.9520, L501.23269, L503.6030, L503.0105, L506.0400, L3200.1500, L506.1000, L500.4050, L100.0100, L3200.0500, L3200.1400, L501.9985 ####[facility] [address] [place], [address] Monocytes/100 WBC (Bld) 3.8 % Normal 0-10 [facility] Comment on above: Performed By: #### L 501.9520, L501.77882, L503.6030, L503.0105, L506.0400, L3200.1500, L506.1000, L500.4050, L100.0100, L3200.0500, L3200.1400, L501.9985 ####[facility] [address] [place], [address] Neutrophils/100 WBC (Bld) 75.6 % High 47-70 [facility] Comment on above: Performed By: #### L 501.9520, L501.91971, L503.6030, L503.0105, L506.0400, L3200.1500, L506.1000, L500.4050, L100.0100, L3200.0500, L3200.1400, L501.9985 ####[facility] [address] [place], [address] Nucleated RBC (Bld) [#/Vol] 0 10*3/uL Normal 0-5 [facility] Comment on above: Performed By: #### L 501.9520, L501.99926, L503.6030, L503.0105, L506.0400, L3200.1500, L506.1000, L500.4050, L100.0100, L3200.0500, L3200.1400, L501.9985 ####[facility] [address] [place], [address] Platelet mean volume (Bld) [Entitic vol] 9.8 fL Normal 6.2-12.0 [facility] Comment on above: Performed By: #### L 501.9520, L501.24717, L503.6030, L503.0105, L506.0400, L3200.1500, L506.1000, L500.4050, L100.0100, L3200.0500, L3200.1400, L501.9985 ####[facility] [address] [place], [address] Platelets (Bld) [#/Vol] 308 10*3/uL Normal 150-450 [facility] Comment on above: Performed By: #### L 501.9520, L501.15710, L503.6030, L503.0105, L506.0400, L3200.1500, L506.1000, L500.4050, L100.0100, L3200.0500, L3200.1400, L501.9985 ####[facility] [address] [place], [address] RBC (Bld) [#/Vol] 3.77 10*6/uL Low 4.2-5.4 [facility] Comment on above: Performed By: #### L 501.9520, L501.75674, L503.6030, L503.0105, L506.0400, L3200.1500, L506.1000, L500.4050, L100.0100, L3200.0500, L3200.1400, L501.9985 ####[facility] [address] [place], [address] RDW SD 43.0 fl Normal 35.1-43.9 [facility] Comment on above: Performed By: #### L 501.9520, L501.20850, L503.6030, L503.0105, L506.0400, L3200.1500, L506.1000, L500.4050, L100.0100, L3200.0500, L3200.1400, L501.9985 ####[facility] [address] [place], [address] WBC (Bld) [#/Vol] 10.1 10*3/uL Normal 4.4-11.0 [facility] Comment on above: Performed By: #### L 501.9520, L501.51631, L503.6030, L503.0105, L506.0400, L3200.1500, L506.1000, L500.4050, L100.0100, L3200.0500, L3200.1400, L501.9985 ####[facility] [address] [place], [address] [facility] IOANA [facility]LETCHER ([id number]) 1970 F Date Time Provider Department 03/21/24 BRENDON SAENZ [facility] During your visit today, we recorded the following information about you: Swapna Goff MA 03/21/2024 6:43 PM Signed PCP ordered labs for pt from recent OV. Office receiving outside labs from [facility]. Please review scanning. CBC, CMP, Free T3, TSH, T4 Free, Iron + TIBC, B-12 and Vit D 25. Awaiting lab results for A1c, IGG and Immunoglobulin A and Immunoglobulin M. Once received additional labs needed, route to PCP to advise on results. Routing to PCP pool to watch for the rest of the results. PAVAN Engel Linda M, LPN 03/24/2024 6:29 PM Signed Rest of these labs were received and are in scanning. Brendon Saenz, 03/30/2024 7:13 AM Signed Please let her know that her immune levels by IG subclass are all normal Her A1c is slightly high into the prediabetes/IFG levels at 6.4%. needs to be working on cutting back on sugars and starches in her diet and need for exercise routinely. Her renal function is abnormal with creatinine at 1.61, GFR in the mid 30s. Needs to follow up with Nephrologsit Her vitamin D is too low at 30s. Needs to increase the vitamin D3 by extra 1000 international unit(s) a day with a meal. Her hemoglobin is slightly into the anemia range at 11.2. if she hasn't had a colonoscopy and EGD, she needs to pursue this because of the anemia and her iron levels are low normal range. DO Nishi Bernstein Beth, LPN 03/30/2024 9:07 AM Signed Phoned patient went over result, notes from Dr Saenz with understanding. Patient said she had colonoscopy brought in copy of it at her appt. Not found in scanned in documents as yet. She said was normal had hemorrhoids. Patient has made follow up with [employer] in early May. Allergies As of Date: 03/21/2024 Noted Allergy Reaction LATEX 08/17/2013 4 - Hives PENICILLINS 12/28/2012 12 - Shortness of Breath PREDNISONE 03/19/2016 8 - GI Upset 14 - Other: See Comments Comments: [place] jittery WELLBUTRIN (BUPROPION HCL) 12/03/2016 14 - Other: See Comments Comments: sweating Date Reviewed: 03/18/2024 Reviewed by: Anu Vanegas LPN - Fully Assessed Reason for Visit: Results [95] Prescriptions as of 12/30/2024 - spironolactone (ALDACTONE) 50 mg tablet Take 1 tablet by mouth once daily. - losartan (COZAAR) 100 mg tablet take 1 tablet by mouth once daily - hydrocortisone (ANUSOL-HC) 25 mg suppository 1 Suppository by RECTAL route two times a day as needed (hemorrhoids/rectal pain). - triamcinolone acetonide (KENALOG) 0.1 % ointment Apply to affected area two times a day. For 10-14 days. - labetalol (TRANDATE) 100 mg tablet Take 200 mg by mouth three times a day. - gabapentin (NEURONTIN) 300 mg capsule Take 1 capsule by mouth three times a day as needed for up to 30 days. - NIFEdipine ER (PROCARDIA XL) 30 mg 24 hr tablet Take 1 tablet by mouth daily at bedtime. For blood pressure - calcitriol (ROCALTROL) 0.5 mcg capsule Take 0.5 mcg by mouth two times a day. - desvenlafaxine ER (PRISTIQ) 100 mg 24 hr tablet Take 50 mg by mouth once daily. - clonazePAM (KLONOPIN) 0.5 mg tablet Take 1 tablet by mouth once daily as needed for up to 30 days. - calcium carbonate/vitamin D3 (CALCIUM 500 + D ORAL) Take 2 Each by mouth once daily. - mirtazapine (REMERON) 15 mg tablet Take 30 mg by mouth daily at bedtime. Per Psych- Keyur Dubon, PERMIT COORDINATOR - hydrocortisone 2.5 % cream Apply 1 application to affected area daily at bedtime. Location: facial, avoid eyes/lips Problem List As Of Date 03/21/2024 Noted Resolved HYPOPARATHYROIDISM [E20.9] 09/06/2007 Morbid obesity [...] M79.605] 04/22/2017 11/23/2017 RUQ pain [R10.11] 10/23/2017 Uncontrolled hypertension [I10] 11/23/2017 Cervical (neck) region somatic dysfunction [M99*02/13/2021 Somatic dysfunction of spine, thoracic [M99.02] 02/13/2021 Acute bilateral thoracic back pain [M54.6] 02/13/2021 Myalgia [M79.10] 09/18/2022 Fatigue [R53.83] 09/18/2022 RUQ abdominal pain [R10.11] 09/18/2022 Calculus of gallbladder without cholecystitis w*09/18/2022 Obesity, Class III (more content not included)... Normal [facility] ilon 03-21-2024 Albumin [Mass/Vol] 3.6 g/dL Normal 3.2-5.0 [facility] Comment on above: Performed By: #### L 501.9520, L501.16681, L503.6030, L503.0105, L506.0400, L3200.1500, L506.1000, L500.4050, L100.0100, L3200.0500, L3200.1400, L501.9985 ####[facility] [address] [place], [address] Albumin/Globulin [Mass ratio] 0.8 {ratio} Low 0.9-2.4 [facility] Comment on above: Performed By: #### L 501.9520, L501.50739, L503.6030, L503.0105, L506.0400, L3200.1500, L506.1000, L500.4050, L100.0100, L3200.0500, L3200.1400, L501.9985 ####[facility] [address] [place], [address] ALK P 82 U/L Normal 45-117 [facility] Comment on above: Performed By: #### L 501.9520, L501.41248, L503.6030, L503.0105, L506.0400, L3200.1500, L506.1000, L500.4050, L100.0100, L3200.0500, L3200.1400, L501.9985 ####[facility] [address] [place], [address] ALT [Catalytic activity/Vol] 25 U/L Normal 13-56 [facility] Comment on above: Performed By: #### L 501.9520, L501.37022, L503.6030, L503.0105, L506.0400, L3200.1500, L506.1000, L500.4050, L100.0100, L3200.0500, L3200.1400, L501.9985 ####[facility] [address] [place], [place], [phone] AST [Catalytic activity/Vol] 15 U/L Normal 15-37 [facility] Comment on above: Performed By: #### L 501.9520, L501.97986, L503.6030, L503.0105, L506.0400, L3200.1500, L506.1000, L500.4050, L100.0100, L3200.0500, L3200.1400, L501.9985 ####[facility] [address] [place], [address] Bilirubin [Mass/Vol] 0.30 mg/dL Normal 0.20-1.00 [facility] Comment on above: Result Comment: For patients on eltrombopag therapy, use of Dimension Mobile TBIL is not recommended. Performed By: #### L 501.9520, L501.10807, L503.6030, L503.0105, L506.0400, L3200.1500, L506.1000, L500.4050, L100.0100, L3200.0500, L3200.1400, L501.9985 ####[facility] [address] [place], [place], [phone] BUN/CRE 15.5 RATIO Normal 10-20 [facility] Comment on above: Performed By: #### L 501.9520, L501.96251, L503.6030, L503.0105, L506.0400, L3200.1500, L506.1000, L500.4050, L100.0100, L3200.0500, L3200.1400, L501.9985 ####[facility] [address] [place], [place], [phone] CA,Total 9.7 mg/dL Normal 8.5-10.1 [facility] Comment on above: Performed By: #### L 501.9520, L501.88640, L503.6030, L503.0105, L506.0400, L3200.1500, L506.1000, L500.4050, L100.0100, L3200.0500, L3200.1400, L501.9985 ####[facility] [address] [place], [place], [phone] Chloride [Moles/Vol] 104 mmol/L Normal 98-107 [facility] Comment on above: Performed By: #### L 501.9520, L501.24911, L503.6030, L503.0105, L506.0400, L3200.1500, L506.1000, L500.4050, L100.0100, L3200.0500, L3200.1400, L501.9985 ####[facility] [address] [place], [place], [phone](371) CO2 [Moles/Vol] 27.0 mmol/L Normal 21.0-32.0 [facility] Comment on above: Performed By: #### L 501.9520, L501.06506, L503.6030, L503.0105, L506.0400, L3200.1500, L506.1000, L500.4050, L100.0100, L3200.0500, L3200.1400, L501.9985 ####[facility] [address] [place], [place], [phone]) Creatinine [Mass/Vol] 1.61 mg/dL High 0.55-1.02 [facility] Comment on above: Result Comment: The validity of the calculated GFR GFRAA in patients over 70 years has not been determined. Clinical correlation is essential. Performed By: #### L 501.9520, L501.42292, L503.6030, L503.0105, L506.0400, L3200.1500, L506.1000, L500.4050, L100.0100, L3200.0500, L3200.1400, L501.9985 ####[facility] [address] [place], [place], [phone](081) EST GFR - AA 43 mL/min Low >60 [facility] Comment on above: Result Comment: Afri can Azerbaijani GFR Calc Performed By: #### L 501.9520, L501.57298, L503.6030, L503.0105, L506.0400, L3200.1500, L506.1000, L500.4050, L100.0100, L3200.0500, L3200.1400, L501.9985 ####[facility] [address] [place], [place], [phone] GAP 6 Normal 5-15 [facility] Comment on above: Performed By: #### L 501.9520, L501.69273, L503.6030, L503.0105, L506.0400, L3200.1500, L506.1000, L500.4050, L100.0100, L3200.0500, L3200.1400, L501.9985 ####[facility] [address] [place], [phone]) GFR/1.73 sq M.predicted among non-blacks MDRD (S/P/Bld) [Vol rate/Area] 36 mL/min/{1.73_m2} Low >60 [facility] Comment on above: Result Comment: Non- GFR Calc Performed By: #### L 501.9520, L501.65281, L503.6030, L503.0105, L506.0400, L3200.1500, L506.1000, L500.4050, L100.0100, L3200.0500, L3200.1400, L501.9985 ####[facility] [address] [place], [phone](468) Globulin (S) [Mass/Vol] 4.4 g/dL High 2.2-4.2 [facility] Comment on above: Performed By: #### L 501.9520, L501.08879, L503.6030, L503.0105, L506.0400, L3200.1500, L506.1000, L500.4050, L100.0100, L3200.0500, L3200.1400, L501.9985 ####[facility] [address] [place], [address] Glucose [Mass/Vol] 136 mg/dL High 74-106 [facility] Comment on above: Result Comment: Fast ing Glucose result greater than or equal to 126 mg/dL suggests DIABETES MELLITUS per A.D.A. criteria. Performed By: #### L 501.9520, L501.09317, L503.6030, L503.0105, L506.0400, L3200.1500, L506.1000, L500.4050, L100.0100, L3200.0500, L3200.1400, L501.9985 ####[facility] [address] [place], [place], [id number] Potassium [Moles/Vol] 3.8 mmol/L Normal 3.5-5.1 [facility] Comment on above: Performed By: #### L 501.9520, L501.06266, L503.6030, L503.0105, L506.0400, L3200.1500, L506.1000, L500.4050, L100.0100, L3200.0500, L3200.1400, L501.9985 ####[facility] [address] [place], [place], [id number] Sodium [Moles/Vol] 137 mmol/L Normal 136-145 [facility] Comment on above: Performed By: #### L 501.9520, L501.10706, L503.6030, L503.0105, L506.0400, L3200.1500, L506.1000, L500.4050, L100.0100, L3200.0500, L3200.1400, L501.9985 ####[facility] [address] [place], [place], [id number] T PROT 8.0 g/dL Normal 6.4-8.2 [facility] Comment on above: Performed By: #### L 501.9520, L501.33673, L503.6030, L503.0105, L506.0400, L3200.1500, L506.1000, L500.4050, L100.0100, L3200.0500, L3200.1400, L501.9985 ####[facility] [address] [place], [address] Urea nitrogen [Mass/Vol] 25 mg/dL High 11-18 [facility] Comment on above: Performed By: #### L 501.9520, L501.49437, L503.6030, L503.0105, L506.0400, L3200.1500, L506.1000, L500.4050, L100.0100, L3200.0500, L3200.1400, L501.9985 ####[facility] [address] [place], [place], [id number] Free T3on 03-21-2024 Free T3 [Mass/Vol] 3.0 pg/mL Normal 2.18-3.98 [facility] Comment on above: Performed By: #### L 501.9520, L501.71385, L503.6030, L503.0105, L506.0400, L3200.1500, L506.1000, L500.4050, L100.0100, L3200.0500, L3200.1400, L501.9985 ####[facility] [address] [place], [address] Hemoglobin A1con 03-21-2024 HbA1c (Bld) [Mass fraction] 6.4 % High 3.8-5.6 [facility] Comment on above: Result Comment: Norm al < 5.7 % Prediabetic 5.7 - 6.4 % Diabetic >or= 6.5 % Please note range changes. Performed By: #### L 501.9520, L501.83750, L503.6030, L503.0105, L506.0400, L3200.1500, L506.1000, L500.4050, L100.0100, L3200.0500, L3200.1400, L501.9985 ####[facility] [id number] [place], [place], [id number] Iron+Iron Binding Capacityon 03-21-2024 Iron [Mass/Vol] 70 ug/dL Normal 50-170 [facility] Comment on above: Performed By: #### L 501.9520, L501.16017, L503.6030, L503.0105, L506.0400, L3200.1500, L506.1000, L500.4050, L100.0100, L3200.0500, L3200.1400, L501.9985 ####[facility] [address] [place], [place], [id number] IRON SATURATION 17.4 Normal 15.0-55.0 [facility] Comment on above: Performed By: #### L 501.9520, L501.92177, L503.6030, L503.0105, L506.0400, L3200.1500, L506.1000, L500.4050, L100.0100, L3200.0500, L3200.1400, L501.9985 ####[facility] [address] [place], [place], [id number] TIBC 402 ug/dL Normal 250-450 [facility] Comment on above: Performed By: #### L 501.9520, L501.47606, L503.6030, L503.0105, L506.0400, L3200.1500, L506.1000, L500.4050, L100.0100, L3200.0500, L3200.1400, L501.9985 ####[facility] [id number] [place], [place], [id number] T4 Free Directon 03-21-2024 T4 FREE DIRECT 1.07 ng/dL Normal 0.76-1.46 [facility] Comment on above: Performed By: #### L 501.9520, L501.67236, L503.6030, L503.0105, L506.0400, L3200.1500, L506.1000, L500.4050, L100.0100, L3200.0500, L3200.1400, L501.9985 ####[facility] [id number] [place], [place], [id number] Thyroid Stim Hormone (TSH)on 03-21-2024 TSH 2.580 uIU/mL Normal 0.358-3.740 [facility] Comment on above: Performed By: #### L 501.9520, L501.15419, L503.6030, L503.0105, L506.0400, L3200.1500, L506.1000, L500.4050, L100.0100, L3200.0500, L3200.1400, L501.9985 ####[facility] [id number] [place], [place], [id number] Vitamin B12on 03-21-2024 Cobalamin (Vitamin B12) [Mass/Vol] 570 pg/mL Normal 211-911 [facility] Comment on above: Performed By: #### L 501.9520, L501.55517, L503.6030, L503.0105, L506.0400, L3200.1500, L506.1000, L500.4050, L100.0100, L3200.0500, L3200.1400, L501.9985 ####[facility] [address] [place], [place], [id number] Vitamin D,25 Hydroxyon 03-21 Vitamin D 25-OH 28.2 ng/mL Normal [facility] Comment on above: Result Comment: Trinh min D 25(OH) Status Range Deficiency <20 ng/mL (50nmol/L) Insufficiency 20 - 30 ng/mL (50 - 75 nmol/L) Sufficiency 30 - 100 ng/mL (75 - 250 nmol/L) Toxicity >100 ng/mL (>250 nmol/L) Performed By: #### L 501.9520, L501.01945, L503.6030, L503.0105, L506.0400, L3200.1500, L506.1000, L500.4050, L100.0100, L3200.0500, L3200.1400, L501.9985 ####[facility] [id number] [place], [address] [facility] Office [facility] ([facility] ) IOANA FLETCHER ([id number]) 1970 F Date Time Provider Department 03/18/24 1:20 PM BRENDON SAENZ [facility] During your visit today, we recorded the following information about you: Temperature Pulse Respiration Blood pressure 97.8 degrees 80/minute 20/minute 120/60 Weight Height 126 kg 1.64 m Brendon Saenz DO 03/19/2024 11:31 AM Signed CC: Ioana Fletcher is a 53 year old female who presents to the office for physical HPI: Cough, started a few months ago, lasted 6 weeks of time. Was negative for covid 19 viral infection. The infection resolved and then she got a recent URI and this has now lasted for 2 weeks. She is taking MVI and vitamin C vitamin already. Unsure what is causing it. Feels like she is getting frequent recurrent illness and these illness are lasting a very long time each episode Extreme fatigue symptoms, was falling asleep typing. She isn't sleeping well at night though. No obvious history of narcolepsy or ANKIT in herself or in family member. Is concerned when driving on a highway for this feeling of wanting to nod off to sleep. She states that she can also fall asleep at work often just when she is working/typing. Has a fmhx of asthma in her brother, no personal history of asthma that she is aware of. 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 No new symptoms HTN, well controlled recently, no CP or palpitations or syncope or edema legs Mood, stable, taking remeron Hemorrhoids, external and internal, long standing, seen on recent colonoscopy. She is interested in prn use of a suppository to help with pain and bleeding that is intermittent. PAST MEDICAL HISTORY Diagnosis Date Anemia likely due to iron deficiency Anxiety Dermatitis, seborrheic HTN (hypertension) 11/23/2017 Hypoparathyroidism (HCC) Nasal polyps Dr. Sheth ENT, CT sinuses 11/20/12 Panic attacks Vitamin D deficiency PAST SURGICAL HISTORY Procedure Laterality Date ADENOIDECTOMY PRIMARY AGE 13/> OFFICE ENDOMETRIAL ABLATION 02/2017 Ela endometrial ablation TOOTH EXTRACTION Social History: Social History Tobacco Use Smoking status: Former Current packs/day: 0.00 Average packs/day: 0.5 packs/day for 12.0 years (6.0 ttl pk-yrs) Types: Cigarettes Start date: 05/04/1990 Quit date: 05/04/2002 Years since quittin.8 Smokeless tobacco: Never Vaping Use Vaping status: Never Used Substance Use Topics Alcohol use: No Drug use: No FAMILY HISTORY Problem Relation Age of Onset Diabetes Mother Hypertension Mother Lipids Mother Diabetes Brother Asthma Brother Diabetes Brother Current Outpatient prescriptions: hydrocortisone (ANUSOL-HC) 25 mg suppository 1 Suppository by RECTAL route two times a day as needed (hemorrhoids/rectal pain). doxycycline (VIBRA-TABS) 100 mg tablet Take 1 tablet by mouth two times a day for 10 days. losartan (COZAAR) 100 mg tablet Take 1 tablet by mouth once daily. triamcinolone acetonide (KENALOG) 0.1 % ointment Apply to affected area two times a day. For 10-14 days. labetalol (TRANDATE) 100 mg tablet Take 200 mg by mouth three times a day. gabapentin (NEURONTIN) 300 mg capsule Take 1 capsule by mouth three times a day as needed for up to 30 days. spironolactone (ALDACTONE) 50 mg tablet Take 1 tablet by mouth once daily. (Patient taking differently: Take 25 mg by mouth once daily.) NIFEdipine ER (PROCARDIA XL) 30 mg 24 hr tablet Take 1 tablet by mouth daily at bedtime. For blood pressure (Patient taking differently: Take 90 mg by mouth daily at bedtime. For blood pressure) calcitriol (ROCALTROL) 0.5 mcg capsule Take 0.5 mcg by mouth two times a day. desvenlafaxine ER (PRISTIQ) 100 mg 24 hr tablet Take 50 mg by mouth once daily. clonazePAM (KLONOPIN) 0.5 mg tablet Take 1 tablet by mouth once daily as needed for up to 30 days. calcium carbonate/vitamin D3 (CALCIUM 500 + D ORAL) Take 2 Each by mouth once daily. mirtazapine (REMERON) 15 mg tablet Take 30 mg by mouth daily at bedtime. Per Psych- Keyur Dubon, FADI hydrocortisone 2.5 % cream Apply 1 application to affected area daily at bedtime. Location: facial, avoid eyes/lips (Patient not taking: Reported on 07/17/2023) Allergies: ALLERGIES Allergen Reactions Latex Hives Penicillins Shortness of Breath Prednisone GI Upset, Other: See Comments [place] jittery Wellbutrin [Bupropi* Other: See Comments sweating ROS: See HPI PE: 03/18/24 1316 BP: 120/60 Pulse: 80 Resp: 20 Temp: 36.6 ?C (97.8 ?F) TempSrc: Left Tympanic Weight: 126 kg (277 lb 12.5 oz) Height: 164 cm (5' 4.57) Gen: AANDO, NAD, non-toxic appearing, Pleasant, cooperative,appears fatigued HEENT: NT/AC, PERRLA, EOMs intact b/l, nares clear and patent b/l, pharynx without erythema, exudate or lesions. MMM, Uvula mid (more content not included)... Normal [facility] MR/BMS.BPon 03-14-2024 MR/BMS.BP [address], [address] [place], [place] [id number] OFFICE VISIT Date of Service: 03/14/24 MR#: [id number] Acct: [id number] Name: IOANA FLETCHER Rep #: [id number] : 1970 Provider: Dr. Moy Beth se DO Age/Sex: 53/F Location: [facility] [place] Status: Signed Intake Vital Signs 11/16/23 16:29 02/18/24 15:58 03/14/24 16:17 Height 5 ft 5 in 5 ft 5 in 5 ft 5 in Weight: 279 lb BMI 46.4 BP 133/84 H 144/85 H Blood Pressure Location Rt brachial Rt radial Position Sitting Sitting Respiration 18 Pulse 83 67 Pulse Source Monitor Monitor Pulse Oximetry (%) 96 Oxygen Delivery Method room air BP Intake Visit Reasons: 4 M FU Accompanied by: Self Allergies adhesive tape Allergy (Intermediate, Verified 03/14/24 16:26) Rash latex Allergy (Mild, Verified 03/14/24 16:26) rash Penicillins Allergy (Verified 03/14/24 16:26) Shortness of breath citalopram (From Cuil) Adverse Reaction (Verified 03/14/24 16:26) Other Medications ???Medication ???Instructions ???Recorded ???Confirmed ???Type calcium 600 mg capsule 600 mg PO BID 09/12/21 03/14/24 History labetalol 100 mg tablet 100 mg PO TID 06/25/23 03/14/24 History nifedipine 60 mg tablet,extended 60 mg PO QHS 07/31/23 03/14/24 History release calcitriol 0.5 mcg capsule 0.5 mcg PO .qd, BID on #120 10/13/23 03/14/24 Rx caps spironolactone 25 mg tablet 25 mg PO QDAY 02/18/24 03/14/24 History clonazepam 0.5 mg tablet 0.5 mg PO DAILY PRN anxiety 30 03/09/24 03/14/24 Rx days #30 tabs desvenlafaxine succinate 50 mg 50 mg PO DAILY 30 days #30 tabs 03/14/24 03/14/24 Rx tablet,extended release 24 hr mirtazapine 30 mg tablet 30 mg PO QHS #30 tabs 03/14/24 03/14/24 Rx PFSH Medical History Wears glasses History of renal disease Anemia Fatty liver Easy bruising Injury of head and neck History of edema Osteoarthritis of left knee Left knee pain Abnormal glucose YOEL (generalized anxiety disorder) Panic disorder Chronic bilateral low back pain without sciatica Rosacea Former smoker Essential hypertension Obesity Back pain Vitamin D deficiency Hypoparathyroidism Osteoarthritis HTN (hypertension) Low calcium levels Chronic headaches Anxiety Carpal tunnel syndrome Back problem Arthritis Seasonal allergies Surgical History History of carpal tunnel surgery of left wrist Hx of colonoscopy S/P endometrial ablation History of adenoidectomy Family History Brother Asthma Autoimmune disorder Diabetes Hypertension Kidney disease Mental disorder Mother Arthritis Blood clot in vein Diabetes Mental disorder Hyperlipidemia Grandmother Cancer Melanoma Grandfather Myocardial infarction Heart disease Hyperlipidemia Social History household members: family and children current occupation: Works at [employer] Smoking Status: Former smoker pack-years: 6 how long ago did patient quit smokin years alcohol intake: never substance use type: does not use what type of physical activity do you participate in: none do you feel safe at home: Yes HPI History of Present Illness History provided by: patient HPI: Ioana Fletcher is a 53 year old female who presents today for follow up evaluation. Patient reports that she has been ok. Feels like mentally she is doing well, but physically is a mess. Reports that she had a cough for about 6 weeks, got better for 2 weeks, then 2 weeks ago got another viral infection. Reports that she has been so tired. Has been falling asleep frequently during the day, even when sitting up. Is set to see PCP in near future. Patient has been told that she snores. Reports that she has fallen asleep driving in the past. Does wake up with dry mouth at times. Has not been napping. Is having some difficulty falling asleep with being sick in recent past. Denies SI/HI or AVH. [place] sleepiness scale negative. STOP-BANG positive as below. [place] Sleepiness Score Sitting and reading 0 Watching TV 0 Sitting inactive in a public place (eg, a theater or meeting) 0 As a passenger in a car for an hour without a break 0 Lying down to rest in the afternoon when circumstances permit 2 Sitting and talking with someone 0 Sitting quietly after a lunch without alcohol 0 In a car, while stopped for a few minutes in traffic 0 STOP-Bang Questionnaire Is it possible that you have ... Obstructive Sleep Apnea (ANKIT)? Snoring ? Do you???Snore Loudly???(loud enough to be heard through closed doors or your bed-partner elbows you for snoring at night)? Yes Tired ? Do you often feel???Tired (more content not included)... Normal [facility] Basophil percentageon 2021 Bilirubin [Mass/Vol] 0.40 mg/dL 0.20-1.00 [facility] Work Phone: Comment on above: For patients on eltr ombopag therapy, use of Dimension Mobile TBIL is not recommended. Chloride [Moles/Vol] 102 mmol/L 98-107 [facility] Work Phone: Glucose [Mass/Vol] 107 mg/dL 74-106 [facility] Work Phone: Comment on above: Fasting Glucose resu lt from 100 to 125 mg/dL suggests IMPAIRED HOMEOSTASIS per A.D.A. criteria. Potassium [Moles/Vol] 3.8 mmol/L 3.5-5.1 [facility] Work Phone: Protein [Mass/Vol] 8.3 g/dL 6.4-8.2 [facility] Work Phone: Sodium [Moles/Vol] 138 mmol/L 136-145 [facility] Work Phone: Laboratory - Chemistry and C hemistry - challengeon 01-09-2022 ALP [Catalytic activity/Vol] 71 U/L 45-117 [facility] Work Phone: ALT [Catalytic activity/Vol] 30 U/L 13-56 [facility] Work Phone: CO2 [Moles/Vol] 31.0 mmol/L 21.0-32.0 [facility] Work Phone: Globulin (S) [Mass/Vol] 4.6 g/dL 2.2-4.2 [facility] Work Phone: Urea nitrogen/Creatinine [Mass ratio] 18.1 mg/mg 10-20 [facility] Work Phone: No Panel Informationon 01-09 Estimated GFR (MDRD) Amer 71 mL/min >60 [facility] Work Phone: Comment on above: GFR Calc Estimated GFR (MDRD) Non-Af Amer 59 mL/min >60 [facility] Work Phone: Comment on above: Non- GFR Calc Serum or plasma albumin aditya urement (mass/volume)on 01-09-2022 Albumin [Mass/Vol] 3.7 g/dL 3.2-5.0 [facility] Work Phone: Serum or plasma albumin/glob ulin mass ratioon 01-09-2022 Albumin/Globulin [Mass ratio] 0.8 {ratio} 0.9-2.4 [facility] Work Phone: Serum or plasma calcium aditya urement (mass/volume)on 01-09-2022 Calcium [Mass/Vol] 9.4 mg/dL 8.5-10.1 [facility] Work Phone: Serum or plasma creatinine m easurement (mass/volume)on 01-09-2022 Creatinine [Mass/Vol] 1.05 mg/dL 0.55-1.02 [facility] Work Phone: Comment on above: The validity of the calculated GFR & GFRAA in patients over 70 years has not been determined. Clinical correlation is essential. Serum or plasma urea nitroge n measurement (mass/volume)on 01-09-2022 Urea nitrogen [Mass/Vol] 19 mg/dL 7-18 [facility] Work Phone: Thin prep Papanicolaou smear with manual screeningon 01-09-2022 Thin prep Papanicolaou smear with manual screening 21 U/L 15-37 [facility] Work Phone: Thin prep Papanicolaou smear with manual screening 5 5-15 [facility] Work Phone: Absolute lymphocyte counton 12-30-2021 Lymphocytes Auto (Unsp spec) [#/Vol] 1.85 10*3/uL 0.83-4.51 [facility] Work Phone: Basophil percentageon 2021 Basophils/100 WBC (Bld) 0.4 % 0-1 [facility] Work Phone: Bilirubin [Mass/Vol] 0.30 mg/dL 0.20-1.00 [facility] Work Phone: Comment on above: For patients on eltr ombopag therapy, use of Dimension Mobile TBIL is not recommended. Chloride [Moles/Vol] 101 mmol/L 98-107 [facility] Work Phone: Eosinophils/100 WBC (Bld) 2.7 % 0-5 [facility] Work Phone: Glucose [Mass/Vol] 137 mg/dL 74-106 [facility] Work Phone: Comment on above: Fasting Glucose resu lt greater than or equal to 126 mg/dL suggests DIABETES MELLITUS per A.D.A. criteria. Neutrophils (Bld) [#/Vol] 5.9 10*3/uL 2.0-7.7 [facility] Work Phone: Neutrophils/100 WBC (Bld) 70.4 % 47-70 [facility] Work Phone: Potassium [Moles/Vol] 3.6 mmol/L 3.5-5.1 [facility] Work Phone: Protein [Mass/Vol] 8.2 g/dL 6.4-8.2 [facility] Work Phone: Sodium [Moles/Vol] 137 mmol/L 136-145 [facility] Work Phone: [phone] WBC (Bld) [#/Vol] 8.4 10*3/uL 4.4-11.0 [facility] Work Phone: Blood erythrocytes count (nu mber/volume)on 12-30-2021 RBC (Bld) [#/Vol] 4.14 10*6/uL 4.2-5.4 [facility] Work Phone: Blood hemoglobin measurement (mass/volume)on 12-30-2021 Hemoglobin (Bld) [Mass/Vol] 12.4 g/dL 12.0-15.0 [facility] Work Phone: Blood lymphocytes/100 leukoc yteson 12-30-2021 Lymphocytes/100 WBC (Bld) 22.1 % 19-41 [facility] Work Phone: [phone] Blood monocytes/100 leukocyt eson 12-30-2021 Monocytes/100 WBC (Bld) 3.8 % 0-10 [facility] Work Phone: Blood platelet mean volumeon 12-30-2021 Platelet mean volume (Bld) [Entitic vol] 9.6 fL 6.2-12.0 [facility] Work Phone: Determination of erythrocyte mean corpuscular volume (MCV)on 12-30-2021 MCV (RBC) [Entitic vol] 87.4 fL 81-99 [facility] Work Phone: Hematocrit Auto (Bld) [Volum e fraction]on 12-30-2021 Hematocrit (Bld) [Volume fraction] 36.2 % 37-47 [facility] Work Phone: Iron measurement (mass/mass) on 12-30-2021 Iron (Unsp spec) [Mass/Mass] 63 ug/dL 50-170 [facility] Work Phone: Laboratory - Chemistry and C hemistry - challengeon 12-30-2021 ALP [Catalytic activity/Vol] 72 U/L 45-117 [facility] Work Phone: ALT [Catalytic activity/Vol] 28 U/L 13-56 [facility] Work Phone: CO2 [Moles/Vol] 30.0 mmol/L 21.0-32.0 [facility] Work Phone: Globulin (S) [Mass/Vol] 4.5 g/dL 2.2-4.2 [facility] Work Phone: Urea nitrogen/Creatinine [Mass ratio] 18.5 mg/mg 10-20 [facility] Work Phone: Laboratory - Hematology and Cell countson 12-30-2021 Erythrocyte distribution width (RBC) [Entitic vol] 39.6 fL 35.1-43.9 [facility] Work Phone: Erythrocyte distribution width (RBC) [Ratio] 12.4 % 11.6-14.6 [facility] Work Phone: Immature granulocytes/100 WBC (Bld) 0.600 % 0.0-0.9 [facility] Work Phone: Comment on above: IG% - Immature Granu locytes (promyelocytes, myelocytes and metamyelocytes) > 1% indicates that a LEFT SHIFT is Present. MCH (RBC) [Entitic mass] 30.0 pg 27.0-32.0 [facility] Work Phone: Nucleated RBC/100 WBC (Bld) [Ratio] 0 % 0-5 [facility] Work Phone: MCHC Auto (RBC) [Mass/Vol]on 12-30-2021 MCHC (RBC) [Mass/Vol] 34.3 g/dL 32-36 [facility] Work Phone: No Panel Informationon 12-30 Estimated GFR (MDRD) Amer 69 mL/min >60 [facility] Work Phone: Comment on above: GFR Calc Estimated GFR (MDRD) Non-Af Amer 57 mL/min >60 [facility] Work Phone: Comment on above: Non- GFR Calc Thyroid Stimulating Hormone (TSH) 2.16 uIU/mL 0.358-3.74 [facility] Work Phone: Total Iron Binding Capacity 363 ug/dL 250-450 [facility] Work Phone: Urine Microalbumin/Creati nine Ratio 6.2 mg/g CRE <30 [facility] Work Phone: Vitamin D 25-Hydroxy 23.8 ng/mL [facility] Work Phone: Comment on above: Vitamin D 25(OH) Sta tus Range Deficiency <20 ng/mL (50nmol/L) Insufficiency 20 - 30 ng/mL (50 - 75 nmol/L) Sufficiency 30 - 100 ng/mL (75 - 250 nmol/L) Toxicity >100 ng/mL (>250 nmol/L) Platelets bldon 12-30-2021 Platelets (Bld) [#/Vol] 326 10*3/uL 150-450 [facility] Work Phone: Serum or plasma albumin aditya urement (mass/volume)on 12-30-2021 Albumin [Mass/Vol] 3.7 g/dL 3.2-5.0 [facility] Work Phone: Serum or plasma albumin/glob ulin mass ratioon 12-30-2021 Albumin/Globulin [Mass ratio] 0.8 {ratio} 0.9-2.4 [facility] Work Phone: Serum or plasma calcium aditya urement (mass/volume)on 12-30-2021 Calcium [Mass/Vol] 9.2 mg/dL 8.5-10.1 [facility] Work Phone: Serum or plasma creatinine m easurement (mass/volume)on 12-30-2021 Creatinine [Mass/Vol] 1.08 mg/dL 0.55-1.02 [facility] Work Phone: Comment on above: The validity of the calculated GFR & GFRAA in patients over 70 years has not been determined. Clinical correlation is essential. Serum or plasma ferritin elmer surement (mass/volume)on 12-30-2021 Ferritin [Mass/Vol] 25 ng/mL 8-252 [facility] Work Phone: Serum or plasma iron saturat ion measurement (mass fraction)on 12-30-2021 Iron saturation [Mass fraction] 17.4 % 15.0-55.0 [facility] Work Phone: Serum or plasma urea nitroge n measurement (mass/volume)on 12-30-2021 Urea nitrogen [Mass/Vol] 20 mg/dL 7-18 [facility] Work Phone: Thin prep Papanicolaou smear with manual screeningon 12-30-2021 Thin prep Papanicolaou smear with manual screening 20 U/L 15-37 [facility] Work Phone: Thin prep Papanicolaou smear with manual screening 6 5-15 [facility] Work Phone: Thin prep Papanicolaou smear with manual screening 7.4 mg/L NO RANGE EST. [facility] Work Phone: Urine creatinine measurement (mass/volume)on 12-30-2021 Creatinine (U) [Mass/Vol] 120.00 mg/dL NO RANGE EST. [facility] Work Phone: Basophil percentageon 2021 Bilirubin [Mass/Vol] 0.30 mg/dL 0.20-1.00 [facility] Work Phone: Comment on above: For patients on eltr ombopag therapy, use of Dimension Mobile TBIL is not recommended. Chloride [Moles/Vol] 99 mmol/L 98-107 [facility] Work Phone: Cholesterol [Mass/Vol] 252 mg/dL <200 [facility] Work Phone: Comment on above: <200 mg/dL Desirable 200-240 mg/dL Borderline >240 mg/dL High Risk Glucose [Mass/Vol] 120 mg/dL 74-106 [facility] Work Phone: Comment on above: Fasting Glucose resu lt from 100 to 125 mg/dL suggests IMPAIRED HOMEOSTASIS per A.D.A. criteria. Potassium [Moles/Vol] 3.9 mmol/L 3.5-5.1 [facility] Work Phone: Protein [Mass/Vol] 8.0 g/dL 6.4-8.2 [facility] Work Phone: Sodium [Moles/Vol] 137 mmol/L 136-145 [facility] Work Phone: Triglyceride [Mass/Vol] 217 mg/dL <199 [facility] Work Phone: Comment on above: The drugs N-Acetylcy steine and Metamizole may falsely depress this assay.Serum Triglycerides Reference Interval Normal <150 mg/dL Borderline high 150 - 199 mg/dL High 200 - 499 mg/dL Very High > or = 500 mg/dL Laboratory - Chemistry and C hemistry - challengeon 11-18-2021 ALP [Catalytic activity/Vol] 63 U/L 45-117 [facility] Work Phone: ALT [Catalytic activity/Vol] 27 U/L 13-56 [facility] Work Phone: CO2 [Moles/Vol] 29.0 mmol/L 21.0-32.0 [facility] Work Phone: Free T4 [Mass/Vol] 1.05 ng/dL 0.76-1.46 [facility] Work Phone: Globulin (S) [Mass/Vol] 4.3 g/dL 2.2-4.2 [facility] Work Phone: Urea nitrogen/Creatinine [Mass ratio] 18.9 mg/mg 10-20 [facility] Work Phone: No Panel Informationon 11-18 Estimated GFR (MDRD) Amer 71 mL/min >60 [facility] Work Phone: Comment on above: GFR Calc Estimated GFR (MDRD) Non-Af Amer 58 mL/min >60 [facility] Work Phone: Comment on above: Non- GFR Calc Thyroid Stimulating Hormone (TSH) 3.25 uIU/mL 0.358-3.74 [facility] Work Phone: Total Triiodothyronine 1.23 ng/mL 0.6-1.81 [facility] Work Phone: Serum or plasma albumin aditya urement (mass/volume)on 11-18-2021 Albumin [Mass/Vol] 3.7 g/dL 3.2-5.0 [facility] Work Phone: Serum or plasma albumin/glob ulin mass ratioon 11-18-2021 Albumin/Globulin [Mass ratio] 0.9 {ratio} 0.9-2.4 [facility] Work Phone: Serum or plasma calcium aditya urement (mass/volume)on 11-18-2021 Calcium [Mass/Vol] 8.9 mg/dL 8.5-10.1 [facility] Work Phone: Serum or plasma cholesterol in HDL measurement (mass/volume)on 11-18-2021 Cholesterol in HDL [Mass/Vol] 48 mg/dL >40 [facility] Work Phone: Comment on above: The drugs N-Acetylcy steine and Metamizole may falsely depress this assay. Reference Range HDL <40 mg/dL Low HDL Cholesterol HDL >or= 60 mg/dL High HDL Cholesterol Serum or plasma cholesterol in VLDL measurement (mass/volume)on 11-18-2021 Cholesterol in VLDL [Mass/Vol] 43 mg/dL 5-40 [facility] Work Phone: Serum or plasma creatinine m easurement (mass/volume)on 11-18-2021 Creatinine [Mass/Vol] 1.06 mg/dL 0.55-1.02 [facility] Work Phone: Comment on above: The validity of the calculated GFR & GFRAA in patients over 70 years has not been determined. Clinical correlation is essential. Serum or plasma low density lipoprotein (LDL) cholesterol measurement (mass/volume)on 11-18-2021 Cholesterol in LDL [Mass/Vol] 161 mg/dL 0-130 [facility] Work Phone: Serum or plasma urea nitroge n measurement (mass/volume)on 11-18-2021 Urea nitrogen [Mass/Vol] 20 mg/dL -18 [facility] Work Phone: Thin prep Papanicolaou smear with manual screeningon 11-18-2021 Thin prep Papanicolaou smear with manual screening 21 U/L 15-37 [facility] Work Phone: Thin prep Papanicolaou smear with manual screening 9 5-15 [facility] Work Phone: Basophil percentageon 2021 Chloride [Moles/Vol] 105 mmol/L 98-107 [facility] Work Phone: Glucose [Mass/Vol] 145 mg/dL 74-106 [facility] Work Phone: Comment on above: Fasting Glucose resu lt greater than or equal to 126 mg/dL suggests DIABETES MELLITUS per A.D.A. criteria. Potassium [Moles/Vol] 3.5 mmol/L 3.5-5.1 [facility] Work Phone: Sodium [Moles/Vol] 140 mmol/L 136-145 [facility] Work Phone: Laboratory - Chemistry and C hemistry - challengeon 10-25-2021 CO2 [Moles/Vol] 30.0 mmol/L 21.0-32.0 [facility] Work Phone: Urea nitrogen/Creatinine [Mass ratio] 16.2 mg/mg 10-20 [facility] Work Phone: No Panel Informationon 10-25 Estimated GFR (MDRD) Amer 67 mL/min >60 [facility] Work Phone: Comment on above: GFR Calc Estimated GFR (MDRD) Non-Af Amer 55 mL/min >60 [facility] Work Phone: Comment on above: Non- GFR Calc Serum or plasma calcium aditya urement (mass/volume)on 10-25-2021 Calcium [Mass/Vol] 8.5 mg/dL 8.5-10.1 [facility] Work Phone: Serum or plasma creatinine m easurement (mass/volume)on 10-25-2021 Creatinine [Mass/Vol] 1.11 mg/dL 0.55-1.02 [facility] Work Phone: Comment on above: The validity of the calculated GFR & GFRAA in patients over 70 years has not been determined. Clinical correlation is essential. Serum or plasma urea nitroge n measurement (mass/volume)on 10-25-2021 Urea nitrogen [Mass/Vol] 18 mg/dL 7-18 [facility] Work Phone: Thin prep Papanicolaou smear with manual screeningon 10-25-2021 Thin prep Papanicolaou smear with manual screening 5 5-15 [facility] Work Phone: Basophil percentageon 2021 Bilirubin [Mass/Vol] 0.30 mg/dL 0.20-1.00 [facility] Work Phone: Comment on above: For patients on eltr ombopag therapy, use of [employer] TBIL is not recommended. Chloride [Moles/Vol] 104 mmol/L 98-107 [facility] Work Phone: Glucose [Mass/Vol] 152 mg/dL 74-106 [facility] Work Phone: Comment on above: Fasting Glucose resu lt greater than or equal to 126 mg/dL suggests DIABETES MELLITUS per A.D.A. criteria. Potassium [Moles/Vol] 3.3 mmol/L 3.5-5.1 [facility] Work Phone: Protein [Mass/Vol] 7.9 g/dL 6.4-8.2 [facility] Work Phone: Sodium [Moles/Vol] 137 mmol/L 136-145 [facility] Work Phone: Laboratory - Chemistry and C hemistry - challengeon 10-14-2021 ALP [Catalytic activity/Vol] 65 U/L 45-117 [facility] Work Phone: ALT [Catalytic activity/Vol] 27 U/L 13-56 [facility] Work Phone: CO2 [Moles/Vol] 28.0 mmol/L 21.0-32.0 [facility] Work Phone: Globulin (S) [Mass/Vol] 4.2 g/dL 2.2-4.2 [facility] Work Phone: Urea nitrogen/Creatinine [Mass ratio] 15.7 mg/mg 10-20 [facility] Work Phone: No Panel Informationon 10-14 Estimated GFR (MDRD) Amer 57 mL/min >60 [facility] Work Phone: Comment on above: GFR Calc Estimated GFR (MDRD) Non-Af Amer 47 mL/min >60 [facility] Work Phone: Comment on above: Non- GFR Calc Serum or plasma albumin aditya urement (mass/volume)on 10-14-2021 Albumin [Mass/Vol] 3.7 g/dL 3.2-5.0 [facility] Work Phone: Serum or plasma albumin/glob ulin mass ratioon 10-14-2021 Albumin/Globulin [Mass ratio] 0.9 {ratio} 0.9-2.4 [facility] Work Phone: Serum or plasma calcium aditya urement (mass/volume)on 10-14-2021 Calcium [Mass/Vol] 8.6 mg/dL 8.5-10.1 [facility] Work Phone: Serum or plasma creatinine m easurement (mass/volume)on 10-14-2021 Creatinine [Mass/Vol] 1.27 mg/dL 0.55-1.02 [facility] Work Phone: Comment on above: The validity of the calculated GFR & GFRAA in patients over 70 years has not been determined. Clinical correlation is essential. Serum or plasma urea nitroge n measurement (mass/volume)on 10-14-2021 Urea nitrogen [Mass/Vol] 20 mg/dL 7-18 [facility] Work Phone: Thin prep Papanicolaou smear with manual screeningon 10-14-2021 Thin prep Papanicolaou smear with manual screening 19 U/L 15-37 [facility] Work Phone: Thin prep Papanicolaou smear with manual screening 5 5-15 [facility] Work Phone: Basophil percentageon 2021 Bilirubin [Mass/Vol] 0.30 mg/dL 0.20-1.00 [facility] Work Phone: Comment on above: For patients on eltr ombopag therapy, use of [employer] TBIL is not recommended. Chloride [Moles/Vol] 104 mmol/L 98-107 [facility] Work Phone: Glucose [Mass/Vol] 136 mg/dL 74-106 [facility] Work Phone: Comment on above: Fasting Glucose resu lt greater than or equal to 126 mg/dL suggests DIABETES MELLITUS per A.D.A. criteria. Potassium [Moles/Vol] 3.7 mmol/L 3.5-5.1 [facility] Work Phone: Protein [Mass/Vol] 7.7 g/dL 6.4-8.2 [facility] Work Phone: Sodium [Moles/Vol] 139 mmol/L 136-145 [facility] Work Phone: Laboratory - Chemistry and C hemistry - challengeon 10-03-2021 ALP [Catalytic activity/Vol] 81 U/L 45-117 [facility] Work Phone: ALT [Catalytic activity/Vol] 37 U/L 13-56 [facility] Work Phone: CO2 [Moles/Vol] 29.0 mmol/L 21.0-32.0 [facility] Work Phone: Globulin (S) [Mass/Vol] 4.0 g/dL 2.2-4.2 [facility] Work Phone: Urea nitrogen/Creatinine [Mass ratio] 10.9 mg/mg 10-20 [facility] Work Phone: No Panel Informationon 10-03 Estimated GFR (MDRD) Amer 62 mL/min >60 [facility] Work Phone: Comment on above: GFR Calc Estimated GFR (MDRD) Non-Af Amer 51 mL/min >60 [facility] Work Phone: Comment on above: Non- GFR Calc Serum or plasma albumin aditya urement (mass/volume)on 10-03-2021 Albumin [Mass/Vol] 3.7 g/dL 3.2-5.0 [facility] Work Phone: Serum or plasma albumin/glob ulin mass ratioon 10-03-2021 Albumin/Globulin [Mass ratio] 0.9 {ratio} 0.9-2.4 [facility] Work Phone: Serum or plasma calcium aditya urement (mass/volume)on 10-03-2021 Calcium [Mass/Vol] 8.0 mg/dL 8.5-10.1 [facility] Work Phone: Serum or plasma creatinine m easurement (mass/volume)on 10-03-2021 Creatinine [Mass/Vol] 1.19 mg/dL 0.55-1.02 [facility] Work Phone: Comment on above: The validity of the calculated GFR & GFRAA in patients over 70 years has not been determined. Clinical correlation is essential. Serum or plasma urea nitroge n measurement (mass/volume)on 10-03-2021 Urea nitrogen [Mass/Vol] 13 mg/dL 7-18 [facility] Work Phone: Thin prep Papanicolaou smear with manual screeningon 10-03-2021 Thin prep Papanicolaou smear with manual screening 32 U/L 15-37 [facility] Work Phone: Thin prep Papanicolaou smear with manual screening 6 5-15 [facility] Work Phone: Laboratory - Microbiology an d Antimicrobial susceptibilityon 09-30-2021 SARS-CoV-2 (COVID-19) RNA GERALDINE+probe Ql (Unsp spec) Detected [facility] Work Phone: No Panel Informationon 09-30 Influenza Types A,B Rapid (Clinic) Not detected [facility] Work Phone: Basophil percentageon 2021 WBC (Bld) [#/Vol] 8.8 10*3/uL 4.4-11.0 [facility] Work Phone: Bilirubin [Mass/Vol] 0.30 mg/dL 0.20-1.00 [facility] Work Phone: Comment on above: For patients on eltr ombopag therapy, use of [employer] TBIL is not recommended. Chloride [Moles/Vol] 104 mmol/L 98-107 [facility] Work Phone: Cholesterol [Mass/Vol] 266 mg/dL <200 [facility] Work Phone: Comment on above: <200 mg/dL Desirable 200-240 mg/dL Borderline >240 mg/dL High Risk Glucose [Mass/Vol] 117 mg/dL 74-106 [facility] Work Phone: Comment on above: Fasting Glucose resu lt from 100 to 125 mg/dL suggests IMPAIRED HOMEOSTASIS per A.D.A. criteria. Potassium [Moles/Vol] 3.5 mmol/L 3.5-5.1 [facility] Work Phone: Protein [Mass/Vol] 7.9 g/dL 6.4-8.2 [facility] Work Phone: Sodium [Moles/Vol] 138 mmol/L 136-145 [facility] Work Phone: Triglyceride [Mass/Vol] 296 mg/dL <199 [facility] Work Phone: Comment on above: The drugs N-Acetylcy steine and Metamizole may falsely depress this assay.Serum Triglycerides Reference Interval Normal <150 mg/dL Borderline high 150 - 199 mg/dL High 200 - 499 mg/dL Very High > or = 500 mg/dL Blood erythrocytes count (nu mber/volume)on 09-23-2021 RBC (Bld) [#/Vol] 3.70 10*6/uL 4.2-5.4 [facility] Work Phone: Blood hemoglobin measurement (mass/volume)on 09-23-2021 Hemoglobin (Bld) [Mass/Vol] 11.4 g/dL 12.0-15.0 [facility] Work Phone: Blood platelet mean volumeon 09-23-2021 Platelet mean volume (Bld) [Entitic vol] 9.3 fL 6.2-12.0 [facility] Work Phone: Determination of erythrocyte mean corpuscular volume (MCV)on 09-23-2021 MCV (RBC) [Entitic vol] 88.4 fL 81-99 [facility] Work Phone: Hematocrit Auto (Bld) [Volum e fraction]on 09-23-2021 Hematocrit (Bld) [Volume fraction] 32.7 % 37-47 [facility] Work Phone: Laboratory - Chemistry and C hemistry - challengeon 09-23-2021 ALP [Catalytic activity/Vol] 73 U/L 45-117 [facility] Work Phone: ALT [Catalytic activity/Vol] 33 U/L 13-56 [facility] Work Phone: CO2 [Moles/Vol] 26.0 mmol/L 21.0-32.0 [facility] Work Phone: Globulin (S) [Mass/Vol] 4.3 g/dL 2.2-4.2 [facility] Work Phone: Urea nitrogen/Creatinine [Mass ratio] 13.9 mg/mg 10-20 [facility] Work Phone: Laboratory - Hematology and Cell countson 09-23-2021 Erythrocyte distribution width (RBC) [Entitic vol] 41.2 fL 35.1-43.9 [facility] Work Phone: Erythrocyte distribution width (RBC) [Ratio] 12.7 % 11.6-14.6 [facility] Work Phone: MCH (RBC) [Entitic mass] 30.8 pg 27.0-32.0 [facility] Work Phone: MCHC Auto (RBC) [Mass/Vol]on 09-23-2021 MCHC (RBC) [Mass/Vol] 34.9 g/dL 32-36 [facility] Work Phone: No Panel Informationon 09-23 Vitamin D 25-Hydroxy 24.1 ng/mL [facility] Work Phone: Comment on above: Vitamin D 25(OH) Sta tus Range Deficiency <20 ng/mL (50nmol/L) Insufficiency 20 - 30 ng/mL (50 - 75 nmol/L) Sufficiency 30 - 100 ng/mL (75 - 250 nmol/L) Toxicity >100 ng/mL (>250 nmol/L) Estimated GFR (MDRD) Amer 42 mL/min >60 [facility] Work Phone: Comment on above: GFR Calc Estimated GFR (MDRD) Non-Af Amer 35 mL/min >60 [facility] Work Phone: Comment on above: Non- GFR Calc Thyroid Stimulating Hormone (TSH) 4.32 uIU/mL 0.358-3.74 [facility] Work Phone: Platelets bldon 09-23-2021 Platelets (Bld) [#/Vol] 294 10*3/uL 150-450 [facility] Work Phone: Serum or plasma albumin aditya urement (mass/volume)on 09-23-2021 Albumin [Mass/Vol] 3.6 g/dL 3.2-5.0 [facility] Work Phone: Serum or plasma albumin/glob ulin mass ratioon 09-23-2021 Albumin/Globulin [Mass ratio] 0.8 {ratio} 0.9-2.4 [facility] Work Phone: Serum or plasma calcium aditya urement (mass/volume)on 09-23-2021 Calcium [Mass/Vol] 7.4 mg/dL 8.5-10.1 [facility] Work Phone: Serum or plasma cholesterol in HDL measurement (mass/volume)on 09-23-2021 Cholesterol in HDL [Mass/Vol] 40 mg/dL >40 [facility] Work Phone: Comment on above: The drugs N-Acetylcy steine and Metamizole may falsely depress this assay. Reference Range HDL <40 mg/dL Low HDL Cholesterol HDL >or= 60 mg/dL High HDL Cholesterol Serum or plasma cholesterol in VLDL measurement (mass/volume)on 09-23-2021 Cholesterol in VLDL [Mass/Vol] 59 mg/dL 5-40 [facility] Work Phone: Serum or plasma creatinine m easurement (mass/volume)on 09-23-2021 Creatinine [Mass/Vol] 1.65 mg/dL 0.55-1.02 [facility] Work Phone: Comment on above: The validity of the calculated GFR & GFRAA in patients over 70 years has not been determined. Clinical correlation is essential. Serum or plasma low density lipoprotein (LDL) cholesterol measurement (mass/volume)on 09-23-2021 Cholesterol in LDL [Mass/Vol] 167 mg/dL 0-130 [facility] Work Phone: Serum or plasma urea nitroge n measurement (mass/volume)on 09-23-2021 Urea nitrogen [Mass/Vol] 23 mg/dL 7-18 [facility] Work Phone: Thin prep Papanicolaou smear with manual screeningon 09-23-2021 Thin prep Papanicolaou smear with manual screening 24 U/L 15-37 [facility] Work Phone: Thin prep Papanicolaou smear with manual screening 8 5-15 [facility] Work Phone: Whole blood hemoglobin A1c/t otal hemoglobin ratio (mass fraction)on 09-23-2021 HbA1c (Bld) [Mass fraction] 5.9 % 3.8-5.6 [facility] Work Phone: Comment on above: Normal < 5.7 % Predi abetic 5.7 - 6.4 % Diabetic >or= 6.5 % Please note range changes. Basophil percentageon 2021 Chloride [Moles/Vol] 104 mmol/L 98-107 [facility] Work Phone: Glucose [Mass/Vol] 131 mg/dL 74-106 [facility] Work Phone: Comment on above: Fasting Glucose resu lt greater than or equal to 126 mg/dL suggests DIABETES MELLITUS per A.D.A. criteria. Potassium [Moles/Vol] 3.0 mmol/L 3.5-5.1 [facility] Work Phone: Sodium [Moles/Vol] 140 mmol/L 136-145 [facility] Work Phone: Laboratory - Chemistry and C hemistry - challengeon 09-19-2021 CO2 [Moles/Vol] 28.0 mmol/L 21.0-32.0 [facility] Work Phone: Urea nitrogen/Creatinine [Mass ratio] 11.8 mg/mg 10-20 [facility] Work Phone: No Panel Informationon 09-19 Estimated GFR (MDRD) Amer 28 mL/min >60 [facility] Work Phone: Comment on above: GFR Calc Estimated GFR (MDRD) Non-Af Amer 23 mL/min >60 [facility] Work Phone: Comment on above: Non- GFR Calc Serum or plasma calcium aditya urement (mass/volume)on 09-19-2021 Calcium [Mass/Vol] 8.2 mg/dL 8.5-10.1 [facility] Work Phone: Serum or plasma creatinine m easurement (mass/volume)on 09-19-2021 Creatinine [Mass/Vol] 2.38 mg/dL 0.55-1.02 [facility] Work Phone: Comment on above: The validity of the calculated GFR & GFRAA in patients over 70 years has not been determined. Clinical correlation is essential. Serum or plasma urea nitroge n measurement (mass/volume)on 09-19-2021 Urea nitrogen [Mass/Vol] 28 mg/dL 7-18 [facility] Work Phone: Thin prep Papanicolaou smear with manual screeningon 09-19-2021 Thin prep Papanicolaou smear with manual screening 8 5-15 [facility] Work Phone: Basophil percentageon 2021 Chloride [Moles/Vol] 104 mmol/L 98-107 [facility] Work Phone: Glucose [Mass/Vol] 98 mg/dL 74-106 [facility] Work Phone: Potassium [Moles/Vol] 3.1 mmol/L 3.5-5.1 [facility] Work Phone: Sodium [Moles/Vol] 140 mmol/L 136-145 [facility] Work Phone: Laboratory - Chemistry and C hemistry - challengeon 09-16-2021 CO2 [Moles/Vol] 30.0 mmol/L 21.0-32.0 [facility] Work Phone: Urea nitrogen/Creatinine [Mass ratio] 10.2 mg/mg 10-20 [facility] Work Phone: No Panel Informationon 09-16 Estimated GFR (MDRD) Amer 19 mL/min >60 [facility] Work Phone: Comment on above: GFR Calc Estimated GFR (MDRD) Non-Af Amer 16 mL/min >60 [facility] Work Phone: Comment on above: Non- GFR Calc Serum or plasma calcium aditya urement (mass/volume)on 09-16-2021 Calcium [Mass/Vol] 9.4 mg/dL 8.5-10.1 [facility] Work Phone: Serum or plasma creatinine m easurement (mass/volume)on 09-16-2021 Creatinine [Mass/Vol] 3.32 mg/dL 0.55-1.02 [facility] Work Phone: Comment on above: The validity of the calculated GFR & GFRAA in patients over 70 years has not been determined. Clinical correlation is essential. Serum or plasma urea nitroge n measurement (mass/volume)on 09-16-2021 Urea nitrogen [Mass/Vol] 34 mg/dL 7-18 [facility] Work Phone: Thin prep Papanicolaou smear with manual screeningon 09-16-2021 Thin prep Papanicolaou smear with manual screening 6 5-15 [facility] Work Phone: Basophil percentageon 2021 Bilirubin [Mass/Vol] 0.30 mg/dL 0.20-1.00 [facility] Work Phone: Comment on above: For patients on eltr ombopag therapy, use of [employer] TBIL is not recommended. Chloride [Moles/Vol] 107 mmol/L 98-107 [facility] Work Phone: Glucose [Mass/Vol] 136 mg/dL 74-106 [facility] Work Phone: Comment on above: Fasting Glucose resu lt greater than or equal to 126 mg/dL suggests DIABETES MELLITUS per A.D.A. criteria. Potassium [Moles/Vol] 3.5 mmol/L 3.5-5.1 [facility] Work Phone: Protein [Mass/Vol] 7.3 g/dL 6.4-8.2 [facility] Work Phone: Sodium [Moles/Vol] 141 mmol/L 136-145 [facility] Work Phone: Laboratory - Chemistry and C hemistry - challengeon 09-14-2021 ALP [Catalytic activity/Vol] 56 U/L 45-117 [facility] Work Phone: ALT [Catalytic activity/Vol] 32 U/L 13-56 [facility] Work Phone: CO2 [Moles/Vol] 29.0 mmol/L 21.0-32.0 [facility] Work Phone: Globulin (S) [Mass/Vol] 3.8 g/dL 2.2-4.2 [facility] Work Phone: Urea nitrogen/Creatinine [Mass ratio] 10.9 mg/mg 10-20 [facility] Work Phone: No Panel Informationon 09-14 Estimated Creatinine Clearance Calc 13.09 ml/min [facility] Work Phone: Estimated GFR (MDRD) Amer 13 mL/min >60 [facility] Work Phone: Comment on above: GFR Calc Estimated GFR (MDRD) Non-Af Amer 11 mL/min >60 [facility] Work Phone: Comment on above: Non- GFR Calc Serum or plasma albumin aditya urement (mass/volume)on 09-14-2021 Albumin [Mass/Vol] 3.5 g/dL 3.2-5.0 [facility] Work Phone: Serum or plasma albumin/glob ulin mass ratioon 09-14-2021 Albumin/Globulin [Mass ratio] 0.9 {ratio} 0.9-2.4 [facility] Work Phone: Serum or plasma calcium aditya urement (mass/volume)on 09-14-2021 Calcium [Mass/Vol] 11.3 mg/dL 8.5-10.1 [facility] Work Phone: Serum or plasma creatinine m easurement (mass/volume)on 09-14-2021 Creatinine [Mass/Vol] 4.49 mg/dL 0.55-1.02 [facility] Work Phone: Comment on above: The validity of the calculated GFR & GFRAA in patients over 70 years has not been determined. Clinical correlation is essential. Serum or plasma urea nitroge n measurement (mass/volume)on 09-14-2021 Urea nitrogen [Mass/Vol] 49 mg/dL 7-18 [facility] Work Phone: Thin prep Papanicolaou smear with manual screeningon 09-14-2021 Thin prep Papanicolaou smear with manual screening 25 U/L 15-37 [facility] Work Phone: Thin prep Papanicolaou smear with manual screening 5 5-15 [facility] Work Phone: Laboratory - Chemistry and C hemistry - challengeon 09-13-2021 Magnesium [Mass/Vol] 2.6 mg/dL 1.6-2.6 [facility] Work Phone: Urine creatinine measurement (mass/volume)on 09-13-2021 Creatinine (U) [Mass/Vol] 39.60 mg/dL NO RANGE EST. [facility] Work Phone: Absolute lymphocyte counton 09-12-2021 Lymphocytes Auto (Unsp spec) [#/Vol] 1.79 10*3/uL 0.83-4.51 [facility] Work Phone: Basophil percentageon 2021 Basophil percentage 5-10 SEEN /hpf 0-5 [facility] Work Phone: Basophils/100 WBC (Bld) 0.4 % 0-1 [facility] Work Phone: Bilirubin [Mass/Vol] 0.50 mg/dL 0.20-1.00 [facility] Work Phone: [phone] Comment on above: For patients on eltr ombopag therapy, use of [employer] TBIL is not recommended. Chloride [Moles/Vol] 93 mmol/L 98-107 [facility] Work Phone: Eosinophils/100 WBC (Bld) 1.3 % 0-5 [facility] Work Phone: Glucose [Mass/Vol] 130 mg/dL 74-106 [facility] Work Phone: Comment on above: Fasting Glucose resu lt greater than or equal to 126 mg/dL suggests DIABETES MELLITUS per A.D.A. criteria. Neutrophils (Bld) [#/Vol] 7.9 10*3/uL 2.0-7.7 [facility] Work Phone: Neutrophils/100 WBC (Bld) 75.6 % 47-70 [facility] Work Phone: Potassium [Moles/Vol] 3.0 mmol/L 3.5-5.1 [facility] Work Phone: Protein [Mass/Vol] 8.4 g/dL 6.4-8.2 [facility] Work Phone: Sodium [Moles/Vol] 136 mmol/L 136-145 [facility]: WBC (Bld) [#/Vol] 10.5 10*3/uL 4.4-11.0 [facility] Work Phone: Bilirubin Test strip Ql (U)o n 09-12-2021 Bilirubin Ql (U) Negative Negative [facility] Work Phone: Blood erythrocytes count (nu mber/volume)on 09-12-2021 RBC (Bld) [#/Vol] 4.07 10*6/uL 4.2-5.4 [facility] Work Phone: Blood hemoglobin measurement (mass/volume)on 09-12-2021 Hemoglobin (Bld) [Mass/Vol] 12.4 g/dL 12.0-15.0 [facility] Work Phone: Blood lymphocytes/100 leukoc yteson 09-12-2021 Lymphocytes/100 WBC (Bld) 17.1 % 19-41 [facility] Work Phone: Blood monocytes/100 leukocyt eson 09-12-2021 Monocytes/100 WBC (Bld) 5.3 % 0-10 [facility] Work Phone: Blood platelet mean volumeon 09-12-2021 Platelet mean volume (Bld) [Entitic vol] 9.7 fL 6.2-12.0 [facility] Work Phone: Culture, urineon 09-12-2021 Bacteria identified Cx Nom (U) Positive [facility] Work Phone: Determination of erythrocyte mean corpuscular volume (MCV)on 09-12-2021 MCV (RBC) [Entitic vol] 86.2 fL 81-99 [facility] Work Phone: Hematocrit Auto (Bld) [Volum e fraction]on 09-12-2021 Hematocrit (Bld) [Volume fraction] 35.1 % 37-47 [facility] Work Phone: Ketones Test strip Ql (U)on 09-12-2021 Ketones Ql (U) Negative Negative [facility] Work Phone: Laboratory - Chemistry and C hemistry - challengeon 09-12-2021 ALP [Catalytic activity/Vol] 73 U/L 45-117 [facility] Work Phone: ALT [Catalytic activity/Vol] 35 U/L 13-56 [facility] Work Phone: CO2 [Moles/Vol] 32.0 mmol/L 21.0-32.0 [facility] Work Phone: Globulin (S) [Mass/Vol] 4.4 g/dL 2.2-4.2 [facility] Work Phone: [phone] Magnesium [Mass/Vol] 2.8 mg/dL 1.6-2.6 [facility] Work Phone: Urea nitrogen/Creatinine [Mass ratio] 12.0 mg/mg 10-20 [facility] Work Phone: Cobalamin (Vitamin B12) [Mass/Vol] 733 pg/mL 211-911 [facility] Work Phone: Laboratory - Hematology and Cell countson 09-12-2021 Erythrocyte distribution width (RBC) [Entitic vol] 38.9 fL 35.1-43.9 [facility] Work Phone: Erythrocyte distribution width (RBC) [Ratio] 12.4 % 11.6-14.6 [facility] Work Phone: Immature granulocytes/100 WBC (Bld) 0.300 % 0.0-0.9 [facility] Work Phone: Comment on above: IG% - Immature Granu locytes (promyelocytes, myelocytes and metamyelocytes) > 1% indicates that a LEFT SHIFT is Present. MCH (RBC) [Entitic mass] 30.5 pg 27.0-32.0 [facility] Work Phone: Nucleated RBC/100 WBC (Bld) [Ratio] 0 % 0-5 [facility] Work Phone: MCHC Auto (RBC) [Mass/Vol]on 09-12-2021 MCHC (RBC) [Mass/Vol] 35.3 g/dL 32-36 [facility] Work Phone: Mucus LM Ql (Urine sed)on Mucus Ql (Urine sed) 0 SEEN /hpf [facility] Work Phone: Nitrite Test strip Ql (U)on 09-12-2021 Nitrite Ql (U) Negative Negative [facility] Work Phone: No Panel Informationon 09-12 Estimated Creatinine Clearance Calc 11.57 ml/min [facility] Work Phone: Estimated GFR (MDRD) Amer 12 mL/min >60 [facility] Work Phone: Comment on above: GFR Calc Estimated GFR (MDRD) Non-Af Amer 10 mL/min >60 [facility] Work Phone: Comment on above: Non- GFR Calc Thyroid Stimulating Hormone (TSH) 3.74 uIU/mL 0.358-3.74 [facility] Work Phone: Platelets bldon 09-12-2021 Platelets (Bld) [#/Vol] 331 10*3/uL 150-450 [facility] Work Phone: Protein Test strip Ql (U)on 09-12-2021 Protein Ql (U) 30 mg/dl Negative [facility] Work Phone: Serum or plasma albumin aditya urement (mass/volume)on 09-12-2021 Albumin [Mass/Vol] 4.0 g/dL 3.2-5.0 [facility] Work Phone: Serum or plasma albumin/glob ulin mass ratioon 09-12-2021 Albumin/Globulin [Mass ratio] 0.9 {ratio} 0.9-2.4 [facility] Work Phone: Serum or plasma calcium aditya urement (mass/volume)on 09-12-2021 Calcium [Mass/Vol] 14.4 mg/dL 8.5-10.1 [facility] Work Phone: Comment on above: Critical Result(s) C alled at: 16:51:36 09/12/2021 by: Mounika Castano to Jazz. Results read back by same. Calcium [Mass/Vol] 14.5 mg/dL 8.5-10.1 [facility] Work Phone: Comment on above: Critical Result(s) C alled at: 14:08:34 09/12/2021 by: Imelda Bowers to Rahul. Results read back by same. Serum or plasma creatinine m easurement (mass/volume)on 09-12-2021 Creatinine [Mass/Vol] 5.08 mg/dL 0.55-1.02 [facility] Work Phone: Comment on above: The validity of the calculated GFR & GFRAA in patients over 70 years has not been determined. Clinical correlation is essential. Serum or plasma urea nitroge n measurement (mass/volume)on 09-12-2021 Urea nitrogen [Mass/Vol] 61 mg/dL 7-18 [facility] Work Phone: Squamous epithelial cells de tection in urine sediment by light microscopyon 09-12-2021 Epithelial cells.squamous LM Ql (Urine sed) 0 SEEN /hpf 5-10 [facility] Work Phone: Thin prep Papanicolaou smear with manual screeningon 09-12-2021 Thin prep Papanicolaou smear with manual screening 28 U/L 15-37 [facility] Work Phone: Thin prep Papanicolaou smear with manual screening 11 5-15 [facility] Work Phone: Urine blood detectionon 09-01 RBC Ql (U) 10 /ul Negative [facility] Work Phone: RBC Ql (U) 0-5 SEEN /hpf 0-5 [facility] Work Phone: Urine clarityon 09-12-2021 Clarity (U) Clear Clear [facility] Work Phone: Urine color determinationon 09-12-2021 Color (U) Yellow Yellow [facility] Work Phone: Urine glucose detectionon Glucose Ql (U) Normal mg/dl Normal [facility] Work Phone: Urine leukocyte esterase det ection by dipstickon 09-12-2021 Leukocyte esterase Test strip Ql (U) 100 /ul Negative [facility] Work Phone: Urine pHon 09-12-2021 pH (U) 8.0 [pH] 5.0 - 8.0 [facility] Work Phone: Urine sediment bacteria coun t by microscopy (number/high power field)on 09-12-2021 Bacteria LM.HPF (Urine sed) [#/Area] 0 /[HPF] None Seen [facility] Work Phone: Urine specific gravity measu rementon 09-12-2021 Specific gravity (U) [Rel density] 1.015 1.002-1.030 [facility] Work Phone: Urobilinogen Auto test strip Ql (U)on 09-12-2021 Urobilinogen Ql (U) Normal mg/dl Normal [facility] Work Phone: Basophil percentageon 2021 WBC (Bld) [#/Vol] 7.4 10*3/uL 4.4-11.0 [facility] Work Phone: Bilirubin [Mass/Vol] 0.30 mg/dL 0.20-1.00 [facility] Work Phone: Comment on above: For patients on eltr ombopag therapy, use of [employer] TBIL is not recommended. Chloride [Moles/Vol] 100 mmol/L 98-107 [facility] Work Phone: Glucose [Mass/Vol] 109 mg/dL 74-106 [facility] Work Phone: Comment on above: Fasting Glucose resu lt from 100 to 125 mg/dL suggests IMPAIRED HOMEOSTASIS per A.D.A. criteria. Potassium [Moles/Vol] 3.4 mmol/L 3.5-5.1 [facility] Work Phone: Protein [Mass/Vol] 7.9 g/dL 6.4-8.2 [facility] Work Phone: Sodium [Moles/Vol] 139 mmol/L 136-145 [facility] Work Phone: Blood erythrocytes count (nu mber/volume)on 08-22-2021 RBC (Bld) [#/Vol] 4.00 10*6/uL 4.2-5.4 [facility] Work Phone: Blood hemoglobin measurement (mass/volume)on 08-22-2021 Hemoglobin (Bld) [Mass/Vol] 12.0 g/dL 12.0-15.0 [facility] Work Phone: Blood platelet mean volumeon 08-22-2021 Platelet mean volume (Bld) [Entitic vol] 9.7 fL 6.2-12.0 [facility] Work Phone: Determination of erythrocyte mean corpuscular volume (MCV)on 08-22-2021 MCV (RBC) [Entitic vol] 88.5 fL 81-99 [facility] Work Phone: Hematocrit Auto (Bld) [Volum e fraction]on 08-22-2021 Hematocrit (Bld) [Volume fraction] 35.4 % 37-47 [facility] Work Phone: Laboratory - Chemistry and C hemistry - challengeon 08-22-2021 ALP [Catalytic activity/Vol] 65 U/L 45-117 [facility] Work Phone: ALT [Catalytic activity/Vol] 31 U/L 13-56 [facility] Work Phone: CO2 [Moles/Vol] 32.0 mmol/L 21.0-32.0 [facility] Work Phone: Globulin (S) [Mass/Vol] 4.2 g/dL 2.2-4.2 [facility] Work Phone: Urea nitrogen/Creatinine [Mass ratio] 20.4 mg/mg 10-20 [facility] Work Phone: Laboratory - Hematology and Cell countson 08-22-2021 Erythrocyte distribution width (RBC) [Entitic vol] 42.9 fL 35.1-43.9 [facility] Work Phone: Erythrocyte distribution width (RBC) [Ratio] 13.2 % 11.6-14.6 [facility] Work Phone: MCH (RBC) [Entitic mass] 30.0 pg 27.0-32.0 [facility] Work Phone: MCHC Auto (RBC) [Mass/Vol]on 08-22-2021 MCHC (RBC) [Mass/Vol] 33.9 g/dL 32-36 [facility] Work Phone: No Panel Informationon 08-22 Estimated GFR (MDRD) Amer 73 mL/min >60 [facility] Work Phone: Comment on above: GFR Calc Estimated GFR (MDRD) Non-Af Amer 60 mL/min >60 [facility] Work Phone: Comment on above: Non- GFR Calc Thyroid Stimulating Hormone (TSH) 2.47 uIU/mL 0.358-3.74 [facility] Work Phone: Vitamin D 25-Hydroxy 23.0 ng/mL [facility] Work Phone: Comment on above: Vitamin D 25(OH) Sta tus Range Deficiency <20 ng/mL (50nmol/L) Insufficiency 20 - 30 ng/mL (50 - 75 nmol/L) Sufficiency 30 - 100 ng/mL (75 - 250 nmol/L) Toxicity >100 ng/mL (>250 nmol/L) Platelets bldon 08-22-2021 Platelets (Bld) [#/Vol] 312 10*3/uL 150-450 [facility] Work Phone: Serum or plasma albumin aditya urement (mass/volume)on 08-22-2021 Albumin [Mass/Vol] 3.7 g/dL 3.2-5.0 [facility] Work Phone: Serum or plasma albumin/glob ulin mass ratioon 08-22-2021 Albumin/Globulin [Mass ratio] 0.9 {ratio} 0.9-2.4 [facility] Work Phone: Serum or plasma calcium aditya urement (mass/volume)on 08-22-2021 Calcium [Mass/Vol] 8.3 mg/dL 8.5-10.1 [facility] Work Phone: Serum or plasma creatinine m easurement (mass/volume)on 08-22-2021 Creatinine [Mass/Vol] 1.03 mg/dL 0.55-1.02 [facility] Work Phone: Comment on above: The validity of the calculated GFR & GFRAA in patients over 70 years has not been determined. Clinical correlation is essential. Serum or plasma thyroperoxid ase antibody assay (units/volume)on 08-22-2021 TPO Ab Qn [IU]/mL 0-34 [facility] Work Phone: Comment on above: Performed at: [place] [id number] Director: Bernabe Peraza PhD, Phone: [phone] Serum or plasma urea nitroge n measurement (mass/volume)on 08-22-2021 Urea nitrogen [Mass/Vol] 21 mg/dL 7-18 [facility] Work Phone: Thin prep Papanicolaou smear with manual screeningon 08-22-2021 Thin prep Papanicolaou smear with manual screening 26 U/L 15-37 [facility] Work Phone: Thin prep Papanicolaou smear with manual screening 7 5-15 [facility] Work Phone: Laboratory - Microbiology an d Antimicrobial susceptibilityon 06-02-2021 SARS-CoV-2 (COVID-19) RNA GERALDINE+probe Ql (Unsp spec) Not detected [facility] Work Phone: No Panel Informationon 06-02 Influenza Types A,B Rapid (Clinic) Not detected [facility] Work Phone: NURSING PROGon 01-28-2018 Protein mass conc HNO ID: [id number] thor: Santa (Rn) ALEXYS Hodgeservice: (none)Author Type: Registered NurseType: Nursing Progress NoteFiled: 01/29/2018 10:27 AMNote Text:PACC Nurse Progress NoteHistory AND Physical:PACC Visit Date: noneOriginal HANDP Date: see OV 01/13/2018 with Candelario COPELAND for HANDPED visit Date: N/AOutside HANDP Scanned Date: N/ALabs Within Last 6 Months:CBC: Date 11/23/2017 WNLBMP/CMP: Date 11/23/2017 within acceptable limits for planned [id number]: Date 11/23/2017 WNLImaging Within Last 12 Months:X-ray- abdomen RUQ results in epicDate of test: 10/14/2017NM Hepatobiliary scan results from 10/07/2017 in epicCardiac Testing:EKG in last 12 Months: Yes: Date: 08/24/2017 scanned and 07/22/2017,Comment: see results NSRECHO Date: 11/02/2013, Comment: EF 65% + or - 5%Last Menstrual Period:LMP Date: endometrial ablation 02/2017 LMP 01/11/2018Postmenopausal >1yr: No,S/P Hysterectomy: NoBMI Percentile (PEDS):N/ARisk Assessment:N/AAnesthesia Review:FYI E- Mail sent to anesthesiaAry, and [facility] staff re:patient history of anxiety/PTSD and agoraphobia. Will be taking Xanaxmorning of surgeryNarrative:No PACC, see OV with Candelario Emerson 01/13/2018 for HANDP. Note on HANDP (copied below)indicates patient has PRN Xanax to take morning of surgery.Per OV 01/13/2018 with Candelario Guardadoent was scheduled for surgery in December but had to cancel due tosignificant anxiety prior to surgery. Of note, she now has a prescriptionfor Xanax from PCP to take the day of surgery. Patient presents to updatehistory and physical and to reschedule her surgeryCalled and pre op instructions given. Patient states she suffers fromgeneralized anxiety/PTSD had a flare up in June and working withdoctors and Psychiatrist to get this under control. Also reports historyof agoraphobia.Pre-op Considerations:Per patient history :Endometrial ablation 02/2017 LMP 01/11/2018 per patientPanic attacks - generalized anxiety/ PTSD. Patient states she suffers fromgeneralized anxiety/PTSD had a flare up in June and working withdoctors and Psychiatrist to get this under control. Also reports historyof agoraphobia. FYI E- [facility] staffPer OV 01/13/2018 with Candelario Osmantangela was scheduled for surgery in December but had to cancel due tosignificant anxiety prior to surgery. Of note, she now has a prescriptionfor Xanax from PCP to take the day of surgery. Patient presents to updatehistory and physical and to reschedule her surgeryChart Check:ALEXYS Calderonept2017 1020PATIENT PREOPERATIVE INSTRUCTIONSNo ref. provider found has scheduled [facility] for [facility]: [phone] -- [address] [id number].Blood Thinning Medications:- Stop NSAIDS (Ibuprofen, Advil, Aleve, Motrin, Celebrex, Mobic, etc.) 7days before surgery, as directed by your surgeon.- Do NOT stop aspirin or other anticoagulants without consulting with yourcardiologist or prescribing physician.- You may take Tylenol (Acetaminophen) or any of your pain medicationsthat do not contain aspirin or NSAIDS as needed.Dietary Restrictions:- No solid food after midnight.- You may have 12 ounces of clear liquids (water, clear juices such asapple juice or gatorade, carbonated beverages, clear tea, black coffee,jello) until 2 hours before scheduled arrival at facility.Pain Medications:Medications:Appro brittani medications to take the morning of surgery with a sip of water:XanaxIf you start any new medications after today's visit, please contact thesurgeon's office.Important Reminders:- Candy, mints, gum and tobacco products are NOT permitted the morning ofsurgery.- Hearing aids, dentures and glasses may be worn the morning of surgery.- NO jewelry, body piercings, makeup, hairpins or contacts are to be wornthe day of surgery.- Hibiclens shower.per surgeon's ordersIf you develop symptoms such as a fever, cold, or flu, or have otherchanges to your health within TWO DAYS of scheduled surgery or the morningof surgery, please contact the surgery center above.Personal Belongings:- Leave ALL valuables and money at home or with family members. Arrival Time for Surgery:- The Surgery Center or hospital where you are having surgery will callthe afternoon before surgery (or Thursday for Thursday surgery) with ascheduled arrival time.- If you have not heard by 4 pm, please contact the surgery center above.Please be aware that emergency situations arise, which may delay or changeyour surgical time. If this happens, we will notify you as soon aspossible and regret any inconvenience.Santa Hodges RN [facility] NURSING PROGon 12-07-2017 Protein mass conc HNO ID: [id number] thor: Sherrie (Rn) Nito, RNService: (none)Author Type: Registered NurseType: Nursing Progress NoteFiled: 12/07/2017 1:37 PMNote Text:PACC Nurse Progress NoteHistory AND Physical:PACC Visit Date: 4-93-06Hbhhlhhy HANDP Date: 11-23-17ED visit Date: N/AOutside HANDP Scanned Date: N/ALabs Within Last 6 Months:CBC: Date 11-23-17- normalBMP/CMP: Date 11-23-17- glucose 104, calcium 8.3PT: Date 11-23-17- normalPTT: Date 11-23-17- normalImaging Within Last 12 Months:US- abdomen- 0-16-58Pfaqgsw Testing:EKG in last 12 Months: Yes: Date: 08-24-17, Comment: scanned into epic-poor Rwave progression- acceptable per PACC guidelinesLast Menstrual Period:LMP Date: 2016- Hx ablation 2017Postmenopausal >1yr: N/A,S/P Hysterectomy: N/ABMI Percentile (PEDS):N/ARisk Assessment:N/AAnesthesia Review:N/ANarrative:Patient had PACC/ HANDP 11-23-17. 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 Spoke with patient and sheis aware of all preop instructions.Pre-op Considerations:N/AChart Check:Shanna Humphreys 2017 1:33 PM Normal [facility] NURSING PROGon 12-01-2017 Protein mass conc HNO ID: [id number] thor: Sherrie (Rn) Nito, RNService: (none)Author Type: Registered NurseType: Nursing Progress NoteFiled: 12/01/2017 9:10 AMNote Text:PACC Nurse Progress NoteHistory AND Physical:PACC Visit Date: 3-69-07Imzgzfpb HANDP Date: 11-23-17ED visit Date: N/AOutside HANDP Scanned Date: N/ALabs Within Last 6 Months:CBC: Date 11-23-17- normalBMP/CMP: Date 11-23-17- calcium 8.3- Hx low calciumPT: Date 11-23-17- normalPTT: Date 11-23-17- normalImaging Within Last 12 Months:US- US abdomen 10-14-17- result in epicCardiac Testing:EKG in last 12 Months: Yes: Date: 08-24-17, Comment: [facility] providerLast Menstrual Period:LMP Date: no LMP recorded- Hx ablationPostmenopausal >1yr: No,S/P Hysterectomy: N/ABMI Percentile (PEDS):N/ARisk Assessment:N/AAnesthesia Review:N/ANarrative:No consults ordered by PACC provider.Pre-op Considerations:Hx hypoparathyroidismAblation 2017Chart Check:Jaron Humphreys 2017 9:07 AM Normal [facility] Culture, urine Bacteria identified Cx Nom (U) Positive [facility] Work Phone: Vital Signs Date Time Vital Sign Value Performing Clinician Facility 03-18-2024 13:16-0500 Body height 164 cm [employer] Work Phone: [facility] 03-18-2024 13:16-0500 Body mass index (BMI) [Ratio] 46.85 kg/m2 Brendon Saenz DO Work Phone: [facility] 03-18-2024 13:16-0500 Body temperature 97.81 [degF] Brendon Saenz DO Work Phone: [facility] 03-18-2024 13:16-0500 Body weight 126 kg Brendon Saenz DO Work Phone: [facility] 03-18-2024 13:16-0500 Diastolic blood pressure 60 mm[Hg] Brendon Saenz DO Work Phone: [facility] 03-18-2024 13:16-0500 Heart rate 80 /min Brendon Saenz DO Work Phone: [facility] 03-18-2024 13:16-0500 Respiratory rate 20 /min Brendon Saenz DO Work Phone: [facility] 03-18-2024 13:16-0500 Systolic blood pressure 120 mm[Hg] Brendon Saenz DO Work Phone: [facility] 09-15-2023 14:48-0400 Body mass index (BMI) [Ratio] 44.94 kg/m2 Brendon Saenz DO Work Phone: [facility] 09-15-2023 14:48-0400 Body temperature 97.5 [degF] Brendon Saenz DO Work Phone: [facility] 09-15-2023 14:48-0400 Body weight 123.83 kg Brendon Saenz DO Work Phone: [facility] 09-15-2023 14:48-0400 Diastolic blood pressure 94 mm[Hg] Brendon Saenz DO Work Phone: [facility] 09-15-2023 14:48-0400 Heart rate 76 /min Brendon Saenz DO Work Phone: [facility] 09-15-2023 14:48-0400 Respiratory rate 16 /min Brendon Saenz DO Work Phone: [facility] 09-15-2023 14:48-0400 Systolic blood pressure 146 mm[Hg] Brendon Saenz DO Work Phone: [facility] 07-17-2023 11:46-0400 Body weight 127.01 kg Mitesh Дмитрий SALES FORCE DEVELOPER.PERMIT COORDINATOR Work Phone: [facility] 07-17-2023 11:46-0400 Diastolic blood pressure 82 mm[Hg] Mitesh Дмитрий SALES FORCE DEVELOPER.PERMIT COORDINATOR Work Phone: [facility] 07-17-2023 11:46-0400 Heart rate 74 /min Mitesh Дмитрий SALES FORCE DEVELOPER.PERMIT COORDINATOR Work Phone: [facility] 07-17-2023 11:46-0400 Respiratory rate 16 /min Mitesh Дмитрий SALES FORCE DEVELOPER.PERMIT COORDINATOR Work Phone: [facility] 07-17-2023 11:46-0400 SaO2% (BldA) [Mass fraction] 96 % Mitesh Дмитрий SALES FORCE DEVELOPER.PERMIT COORDINATOR Work Phone: [facility] 07-17-2023 11:46-0400 Systolic blood pressure 130 mm[Hg] Mitesh Дмитрий SALES FORCE DEVELOPER.PERMIT COORDINATOR Work Phone: [facility] 03-17-2023 09:56-0500 Body temperature 96.4 [degF] Brendon Saenz DO Work Phone: [facility] 03-17-2023 09:56-0500 Body weight 123.38 kg Brendon Saenz DO Work Phone: [facility] 03-17-2023 09:56-0500 Diastolic blood pressure 90 mm[Hg] Brendon Saenz DO Work Phone: [facility] 03-17-2023 09:56-0500 Heart rate 88 /min Brendon Saenz DO Work Phone: [facility] 03-17-2023 09:56-0500 Respiratory rate 16 /min Brendon Saenz DO Work Phone: [facility] 03-17-2023 09:56-0500 Systolic blood pressure 146 mm[Hg] Brendon Saenz DO Work Phone: [facility] 12-09-2022 14:15-0400 Body height 166 cm Brendon Saenz DO Work Phone: [facility] 12-09-2022 14:15-0400 Body temperature 98.71 [degF] Brendon Saenz DO Work Phone: [facility] 12-09-2022 14:15-0400 Body weight 127.01 kg Brendon Saenz DO Work Phone: [facility] 12-09-2022 14:15-0400 Diastolic blood pressure 94 mm[Hg] Brendon Saenz DO Work Phone: [facility] 12-09-2022 14:15-0400 Heart rate 80 /min Brendon Saenz DO Work Phone: [facility] 12-09-2022 14:15-0400 Respiratory rate 20 /min Brnedon Saenz DO Work Phone: [facility] 12-09-2022 14:15-0400 Systolic blood pressure 146 mm[Hg] Brendon Saenz DO Work Phone: [facility] 10-03-2022 15:18-0400 Body height 166.4 cm Pedro Aggarwal MD Work Phone: [facility] 10-03-2022 15:18-0400 Body weight 126.06 kg Pedro Aggarwal MD Work Phone: [facility] 10-03-2022 15:18-0400 Diastolic blood pressure 84 mm[Hg] Pedro Aggarwal MD Work Phone: [facility] 10-03-2022 15:18-0400 Systolic blood pressure 132 mm[Hg] Pedro Aggarwal MD Work Phone: [facility] 05-08-2022 12:35-0500 Body weight 125.28 kg Cady Rizzo SALES FORCE DEVELOPER.PERMIT COORDINATOR Work Phone: [facility] 05-08-2022 12:35-0500 Diastolic blood pressure 78 mm[Hg] Cady Rizzo SALES FORCE DEVELOPER.PERMIT COORDINATOR Work Phone: [facility] 05-08-2022 12:35-0500 Heart rate 60 /min Cady Rizzo SALES FORCE DEVELOPER.PERMIT COORDINATOR Work Phone: [facility] 05-08-2022 12:35-0500 Respiratory rate 16 /min Cady Rizzo SALES FORCE DEVELOPER.PERMIT COORDINATOR Work Phone: [facility] 05-08-2022 12:35-0500 Systolic blood pressure 138 mm[Hg] Cady Rizzo SALES FORCE DEVELOPER.PERMIT COORDINATOR Work Phone: [facility] 10-25-2021 14:08-0400 Body weight 122.29 kg Cady Zurawick SALES FORCE DEVELOPER.PERMIT COORDINATOR Work Phone: [facility] 10-25-2021 14:08-0400 Diastolic blood pressure 64 mm[Hg] Cady Zurawick SALES FORCE DEVELOPER.PERMIT COORDINATOR Work Phone: [facility] 10-25-2021 14:08-0400 Heart rate 72 /min Cady Zurawick SALES FORCE DEVELOPER.PERMIT COORDINATOR Work Phone: [facility] 10-25-2021 14:08-0400 Respiratory rate 16 /min Cady Zurawick SALES FORCE DEVELOPER.PERMIT COORDINATOR Work Phone: [facility] 10-25-2021 14:08-0400 Systolic blood pressure 138 mm[Hg] Cady Zurawick SALES FORCE DEVELOPER.PERMIT COORDINATOR Work Phone: [facility] 09-30-2021 12:38-0400 Body temperature 98.2 [degF] Dr. Brendon Saenz Work Phone: [facility] Work Phone: 09-30-2021 12:38-0400 Diastolic blood pressure 70 mm[Hg] Dr. Brendon Saenz Work Phone: [facility] Work Phone: 09-30-2021 12:38-0400 Heart rate 101 /min Dr. Brendon Saenz Work Phone: [facility] Work Phone: 09-30-2021 12:38-0400 Respiratory rate 16 /min Dr. Brendon Saenz Work Phone: [facility] Work Phone: 09-30-2021 12:38-0400 SaO2% (BldA) [Mass fraction] 97 % Dr. Brendon Saenz Work Phone: [facility] Work Phone: 09-30-2021 12:38-0400 Systolic blood pressure 134 mm[Hg] Dr. Brendon Saenz Work Phone: [facility] Work Phone: 09-30-2021 12:38-0400 Body temperature 98.2 [degF] Dr. Brendon Saenz Work Phone: [facility] Work Phone: 09-30-2021 12:38-0400 Diastolic blood pressure 70 mm[Hg] Dr. Brendon Saenz Work Phone: [facility] Work Phone: 09-30-2021 12:38-0400 Heart rate 101 /min Dr. Brendon Saenz Work Phone: [facility] Work Phone: 09-30-2021 12:38-0400 Respiratory rate 16 /min Dr. Brendon Saenz Work Phone: [facility] Work Phone: 09-30-2021 12:38-0400 SaO2% (BldA) [Mass fraction] 97 % Dr. Brendon Saenz Work Phone: [facility] Work Phone: 09-30-2021 12:38-0400 Systolic blood pressure 134 mm[Hg] Dr. Brendon Saenz Work Phone: [facility] Work Phone: 09-18-2021 17:02-0400 Body weight 122.96 kg Cady Amaro APRN.CNP Work Phone: [facility] 09-18-2021 17:02-0400 Diastolic blood pressure 90 mm[Hg] Cady Zurawick SALES FORCE DEVELOPER.PERMIT COORDINATOR Work Phone: [facility] 09-18-2021 17:02-0400 Heart rate 64 /min Cady Haawick SALES FORCE DEVELOPER.PERMIT COORDINATOR Work Phone: [facility] 09-18-2021 17:02-0400 Respiratory rate 18 /min Cady Zurawick SALES FORCE DEVELOPER.PERMIT COORDINATOR Work Phone: [facility] 09-18-2021 17:02-0400 Systolic blood pressure 142 mm[Hg] Cady Zurawick SALES FORCE DEVELOPER.PERMIT COORDINATOR Work Phone: [facility] 09-16-2021 16:31-0400 Diastolic blood pressure 84 mm[Hg] Dr. Brendon Saenz Work Phone: [facility] Work Phone: 09-16-2021 16:31-0400 Systolic blood pressure 140 mm[Hg] Dr. Brendon Saenz Work Phone: [facility] Work Phone: 09-16-2021 16:31-0400 Diastolic blood pressure 84 mm[Hg] Dr. Brendon Saenz Work Phone: [facility] Work Phone: 09-16-2021 16:31-0400 Systolic blood pressure 140 mm[Hg] Dr. Brendon Saenz Work Phone: [facility] Work Phone: 09-16-2021 15:19-0400 Body height 163.[address] Brendon Saenz Work Phone: [facility] Work Phone: 09-16-2021 15:19-0400 Body mass index (BMI) [Ratio] 35.6 kg/m2 Dr. Brendon Saenz Work Phone: [facility] Work Phone: 09-16-2021 15:19-0400 Body temperature 98.9 [degF] Dr. Brendon Saenz Work Phone: [facility] Work Phone: 09-16-2021 15:19-0400 Body weight 95.[address] Brendon Saenz Work Phone: [facility] Work Phone: 09-16-2021 15:19-0400 Heart rate 90 /min Dr. Brendon Saenz Work Phone: [facility] Work Phone: 09-16-2021 15:19-0400 Respiratory rate 14 /min Dr. Brendon Saenz Work Phone: [facility] Work Phone: 09-16-2021 15:19-0400 SaO2% (BldA) [Mass fraction] 97 % Dr. Brendon Saenz Work Phone: [facility] Work Phone: 09-16-2021 15:19-0400 Body height 163.83 cm Dr. Brendon Saenz Work Phone: [facility] Work Phone: 09-16-2021 15:19-0400 Body mass index (BMI) [Ratio] 35.6 kg/m2 Dr. Brendon Saenz Work Phone: [facility] Work Phone: 09-16-2021 15:19-0400 Body temperature 98.9 [degF] Dr. Brendon Saenz Work Phone: [facility] Work Phone: 09-16-2021 15:19-0400 Body weight 95.[address] Brendon Saenz Work Phone: [facility] Work Phone: 09-16-2021 15:19-0400 Heart rate 90 /min Dr. Brendon Saenz Work Phone: [facility] Work Phone: 09-16-2021 15:19-0400 Respiratory rate 14 /min Dr. Brendon Saenz Work Phone: [facility] Work Phone: 09-16-2021 15:19-0400 SaO2% (BldA) [Mass fraction] 97 % Dr. Brendon Saenz Work Phone: [facility] Work Phone: 09-14-2021 09:30-0400 Body temperature 98.1 [degF] Dr. Brendon Saenz Work Phone: [facility] Work Phone: 09-14-2021 09:30-0400 Diastolic blood pressure 78 mm[Hg] Dr. Brendon Saenz Work Phone: [facility] Work Phone: 09-14-2021 09:30-0400 Heart rate 65 /min Dr. Brendon Saenz Work Phone: [facility] Work Phone: 09-14-2021 09:30-0400 Respiratory rate 18 /min Dr. Brendon Saenz Work Phone: [facility] Work Phone: 09-14-2021 09:30-0400 SaO2% (BldA) [Mass fraction] 96 % Dr. Brendon Saenz Work Phone: [facility] Work Phone: 09-14-2021 09:30-0400 Systolic blood pressure 155 mm[Hg] Dr. Brendon Saenz Work Phone: [facility] Work Phone: 09-13-2021 12:43-0400 Body height 163.[address] Brendon Saenz Work Phone: [facility] Work Phone: 09-13-2021 12:43-0400 Body weight 122.[address] Brendon Saenz Work Phone: [facility] Work Phone: 09-12-2021 18:32-0400 Body mass index (BMI) [Ratio] 45.5 kg/m2 Dr. Brendon Saenz Work Phone: [facility] Work Phone: 09-12-2021 17:54-0400 Body temperature 97.6 [degF] Dr. Brendon Saenz Work Phone: [facility] Work Phone: 09-12-2021 17:54-0400 Diastolic blood pressure 101 mm[Hg] Dr. Brendon Saenz Work Phone: [facility] Work Phone: 09-12-2021 17:54-0400 Heart rate 73 /min Dr. Brendon Saenz Work Phone: [facility] Work Phone: 09-12-2021 17:54-0400 Respiratory rate 17 /min Dr. Brendon Saenz Work Phone: [facility] Work Phone: 09-12-2021 17:54-0400 SaO2% (BldA) [Mass fraction] 99 % Dr. Brendon Saenz Work Phone: [facility] Work Phone: 09-12-2021 17:54-0400 Systolic blood pressure 163 mm[Hg] Dr. Brendon Saenz Work Phone: [facility] Work Phone: 09-12-2021 15:23-0400 Body height 162.[address] Brendon Saenz Work Phone: [facility] Work Phone: 09-12-2021 15:23-0400 Body mass index (BMI) [Ratio] 46 kg/m2 Dr. Brendon Saenz Work Phone: [facility] Work Phone: 09-12-2021 15:23-0400 Body weight 121.[address] Brendon Saenz Work Phone: [facility] Work Phone: 08-23-2021 16:05-0400 Body mass index (BMI) [Ratio] 45.9 kg/m2 Dr. Brendon Saenz Work Phone: [facility] Work Phone: 08-23-2021 16:05-0400 Body weight 123.[address] Brendon Saenz Work Phone: [facility] Work Phone: 08-23-2021 16:05-0400 Diastolic blood pressure 80 mm[Hg] Dr. Brendon Saenz Work Phone: [facility] Work Phone: 08-23-2021 16:05-0400 Systolic blood pressure 140 mm[Hg] Dr. Brendon Saenz Work Phone: [facility] Work Phone: 08-23-2021 16:05-0400 Body height 163.[address] Brendon Saenz Work Phone: [facility] Work Phone: 08-23-2021 16:05-0400 Body mass index (BMI) [Ratio] 45.9 kg/m2 Dr. Brendon Saenz Work Phone: [facility] Work Phone: 08-23-2021 16:05-0400 Body weight 123.[address] Brendon Saenz Work Phone: [facility] Work Phone: 08-23-2021 16:05-0400 Diastolic blood pressure 80 mm[Hg] Dr. Brendon Saenz Work Phone: [facility] Work Phone: 08-23-2021 16:05-0400 Systolic blood pressure 140 mm[Hg] Dr. Brendon Saenz Work Phone: [facility] Work Phone: 06-02-2021 12:22-0500 Body temperature 98.2 [degF] Dr. Brendon Saenz Work Phone: [facility] Work Phone: 06-02-2021 12:22-0500 Diastolic blood pressure 86 mm[Hg] Dr. Brendon Saenz Work Phone: [facility] Work Phone: 06-02-2021 12:22-0500 Heart rate 110 /min Dr. Brendon Saenz Work Phone: [facility] Work Phone: 06-02-2021 12:22-0500 Respiratory rate 16 /min Dr. Brendon Saenz Work Phone: [facility] Work Phone: 06-02-2021 12:22-0500 SaO2% (BldA) [Mass fraction] 97 % Dr. Brendon Saenz Work Phone: [facility] Work Phone: 06-02-2021 12:22-0500 Systolic blood pressure 142 mm[Hg] Dr. Brendon Saenz Work Phone: [facility] Work Phone: Encounters Encounter Date Encounter Type Care Provider Facility Start: 03-10-2025 ambulatory Kasie El MECH[employer]ICAL ENGINEERING [employer]RAFTSPERSON Fac ility:[facility] Start: 03-08-2025 End: 03-08-2025 ambulatory BRENDON SAENZ Facility:[facility] Start: 02-27-2025 End: 02-27-2025 ambulatory Brendon Garciarison Facility:[facility] Start: 02-16-2025 End: 02-16-2025 ambulatory Brendon Garciarison Facility:[facility] Start: 02-15-2025 End: 02-15-2025 ambulatory Nikia Gloria Facility:[facility] Start: 02-03-2025 End: 02-03-2025 ambulatory Brendon Harrisonon Facility:[facility] Start: 01-19-2025 End: 01-19-2025 ambulatory Brendon Saenz Facility:[facility] Start: 01-18-2025 End: 01-18-2025 ambulatory Brendon Saenz Facility:[facility] Start: 01-10-2025 End: 01-10-2025 ambulatory Brendon Saenz Facility:[facility] Start: 12-26-2024 End: 12-26-2024 ambulatory Brendon Saenz Facility:[facility] Start: 12-05-2024 End: 12-05-2024 ambulatory Brendon Saenz Facility:[facility] Start: 12-01-2024 End: 12-01-2024 ambulatory Brendon Saenz Facility:[facility] Start: 11-14-2024 End: 11-14-2024 ambulatory Brendon Saenz Facility:[facility] Start: 11-08-2024 End: 11-08-2024 ambulatory Marques Arredondo Facility:[facility] Start: 10-25-2024 End: 10-25-2024 ambulatory Brendon Saenz Facility:[facility] Start: 10-10-2024 End: 10-10-2024 ambulatory Brendon Saenz Facility:[facility] Start: 10-05-2024 End: 10-06-2024 Get Medical Advice Brendon L Saenz DO Work Phone: [facility] Comment on above: Mammogram order Start: 09-22-2024 End: 09-22-2024 ambulatory Brendon Saenz Facility:[facility] Start: 09-13-2024 End: 09-14-2024 Emergency department patient visit Ramon Mccoy Facility:[facility] Start: 09-12-2024 End: 09-12-2024 ambulatory Brendon Saenz Facility:[facility] Start: 09-09-2024 ambulatory Coral Jacobs [facility] y:[facility] Start: 08-19-2024 End: 08-19-2024 Refill Cady Rizzo APRN.PERMIT COORDINATOR Work Phone: [facility] Comment on above: Refill Request Start: 08-16-2024 End: 09-16-2024 ambulatory Brendon L Saenz DO Work Phone: [facility] Start: 08-04-2024 End: 08-04-2024 ambulatory Coral Jacobs Facility:[facility] Start: 07-11-2024 End: 07-11-2024 ambulatory Moy Bellamy Facility:[facility] Start: 07-04-2024 End: 07-04-2024 ambulatory Brendon Saenz Facility:[facility] Start: 06-24-2024 End: 06-24-2024 ambulatory Brendon Saenz Facility:[facility] Start: 05-26-2024 End: 05-26-2024 ambulatory Brendon L Saenz DO Work Phone: [facility] Comment on above: Medication renewal Start: 05-23-2024 End: 05-23-2024 ambulatory Brendon Saenz Facility:[facility] Start: 05-09-2024 End: 05-09-2024 ambulatory Brendon Saenz Facility:[facility] Start: 04-25-2024 End: 04-25-2024 ambulatory Brendon Saenz Facility:[facility] Start: 04-21-2024 ambulatory Brendon Saenz Facilit y:[facility] Start: 04-21-2024 End: 04-21-2024 ambulatory Brendon Saenz Facility:[facility] Start: 04-12-2024 End: 04-12-2024 ambulatory Brendon Saenz Facility:[facility] Start: 04-12-2024 End: 04-12-2024 Telephone encounter Brendon L Saenz DO Work Phone: [facility] Comment on above: [facility] Sleep Lab reques ting records Start: 03-21-2024 End: 12-30-2024 Telephone encounter Brendon L Saenz DO Work Phone: [facility] Comment on above: Results Start: 03-21-2024 End: 03-21-2024 ambulatory Brendon Saenz Facility:[facility] Start: 03-18-2024 End: 03-18-2024 Patient encounter procedure Brendon L Saenz DO Work Phone: [facility] Comment on above: Well adult exam (Diana arellano Dx); Sleep disorder; Sleep-wake cycle disorder; Fatigue, unspecified type; Recurrent URI (upper respiratory infection); Hoarseness; Bronchitis, mucopurulent recurrent (HCC); Mixed hyperlipidemia; Vitamin B12 deficiency; Stage 3a chronic kidney disease (HCC); Hypertension, essential; Fatty liver Start: 03-18-2024 End: 03-18-2024 Patient encounter status Brendon Saenz DO Work Phone: [facility] Start: 03-18-2024 End: 03-18-2024 ambulatory BRENDON SAENZ Facility:[facility] Start: 03-18-2024 Encounter for nicole ford adult medical examination without abnormal findings BRENDON SAENZ [facility] Start: 03-14-2024 End: 03-14-2024 ambulatory Brendon Saenz Facility:[facility] Start: 02-21-2024 End: 02-22-2024 Refill Cady Rizzo SALES FORCE DEVELOPER.PERMIT COORDINATOR Work Phone: [facility] Comment on above: Refill Request Start: 11-23-2023 Refill Brendon Silva son DO Work Phone: [facility] Start: 11-22-2023 ambulatory Brendon pak DO Work Phone: [facility] Comment on above: Medication Start: 11-02-2023 Telephone encounter Brendon khan DO Work Phone: [facility] Comment on above: Results Start: 09-15-2023 End: 09-15-2023 Patient encounter procedure Brendon Saenz DO Work Phone: [facility] Comment on above: Hypertension, essent ial (Primary Dx); Encounter for screening mammogram for malignant neoplasm of breast; Uncontrolled hypertension; Vitamin B12 deficiency; Mixed hyperlipidemia; Fatty liver; Stage 3a chronic kidney disease (HCC); Situational anxiety; Fatigue, unspecified type Start: 07-22-2023 ambulatory Mitesh amaral SALES FORCE DEVELOPER.PERMIT COORDINATOR Work Phone: [facility] Start: 07-22-2023 Follow-up encounter Mitesh Krueger APRN.PERMIT COORDINATOR Work Phone: [facility] Comment on above: follow-up Start: 07-21-2023 Telephone encounter Mitesh Krueger SALES FORCE DEVELOPER.PERMIT COORDINATOR Work Phone: [facility] [place] Comment on above: Results Start: 07-17-2023 End: 07-17-2023 Patient encounter procedure Mitesh Leroy APRN.PERMIT COORDINATOR Work Phone: [facility] Comment on above: Weight gain (Primary Dx); Numbness and tingling; Arm edema; Decreased GFR; Hypertension, essential Start: 03-17-2023 End: 03-17-2023 Patient encounter procedure Brendon Saenz DO Work Phone: [facility] Comment on above: Borderline abnormal thyroid function test (Primary Dx); Vitamin B12 deficiency; Hypertension, essential; Scalp psoriasis; Mixed hyperlipidemia; Hypoparathyroidism, unspecified hypoparathyroidism type (HCC); Fatty liver; Stage 3a chronic kidney disease (HCC); Situational anxiety Start: 02-01-2023 Refill Brendon pak DO Work Phone: [facility] Comment on above: Refill Request Start: 01-15-2023 ambulatory Brendon pak DO Work Phone: [facility] Comment on above: Psoriasis Start: 12-10-2022 Physical examination Brendon meehan DO Work Phone: [facility] Work Phone: Start: 12-09-2022 End: 12-09-2022 Patient encounter procedure Brendon Saenz DO Work Phone: [facility] Comment on above: Routine physical exa mination (Primary Dx); Hypertension, essential; Myalgia; Mixed hyperlipidemia; Hypoparathyroidism, unspecified hypoparathyroidism type (HCC); Fatty liver; Obesity, Class III, BMI >= 40; Calculus of gallbladder without cholecystitis without obstruction; Scalp psoriasis Start: 12-09-2022 End: 12-09-2022 Physical examination Brendon Saenz DO Work Phone: [facility] Work Phone: Start: 10-26-2022 Refill Cady Rizzo APRN.PERMIT COORDINATOR Work Phone: [facility] Comment on above: Refill Request Start: 10-03-2022 End: 10-03-2022 Patient encounter procedure Pedro Aggarwal MD Work Phone: OB/Gynecology Comment on above: Encounter for gyneco logical examination without abnormal finding (Primary Dx); Encounter for screening for malignant neoplasm of cervix; Special screening examination for human papillomavirus (HPV); Encounter for screening mammogram for malignant neoplasm of breast Start: 10-03-2022 End: 10-03-2022 Patient encounter status Pedro Aggarwal MD Work Phone: [facility] Start: 09-08-2022 ambulatory Cady Rizzo SALES FORCE DEVELOPER.PERMIT COORDINATOR Work Phone: [facility] Comment on above: Mammogram Start: 07-03-2022 Chart abstracting Cday kumari SALES FORCE DEVELOPER.PERMIT COORDINATOR Work Phone: [facility] Comment on above: Outside Labs-[facility] Start: 07-03-2022 Telephone encounter Cady pak SALES FORCE DEVELOPER.PERMIT COORDINATOR Work Phone: [facility] Comment on above: Results; Orders Start: 05-08-2022 ambulatory Cady Rizzo SALES FORCE DEVELOPER.PERMIT COORDINATOR Work Phone: [facility] Comment on above: Blood tests Start: 05-08-2022 End: 05-08-2022 Patient encounter procedure Cady Rizzo APRN.PERMIT COORDINATOR Work Phone: [facility] Comment on above: Situational anxiety (Primary Dx); Hypertension, essential; Panic attacks; Mixed hyperlipidemia; Hypoparathyroidism, unspecified hypoparathyroidism type (HCC) Start: 05-05-2022 Refill Cady Rizzo SALES FORCE DEVELOPER.PERMIT COORDINATOR Work Phone: [facility] Comment on above: Refill Request Start: 04-04-2022 Refill Cady Grahamc lacy SALES FORCE DEVELOPER.PERMIT COORDINATOR Work Phone: [facility] Comment on above: Refill Request Start: 03-26-2022 ambulatory Brendon pak DO Work Phone: [facility] [place] Start: 03-04-2022 Refill Cady Zurisadorac k SALES FORCE DEVELOPER.PERMIT COORDINATOR Work Phone: [facility] Comment on above: Refill Request Start: 03-01-2022 Refill Cady Gladysc k SALES FORCE DEVELOPER.PERMIT COORDINATOR Work Phone: [facility] Comment on above: Refill Request Start: 02-02-2022 Refill Cady Grahamc k SALES FORCE DEVELOPER.PERMIT COORDINATOR Work Phone: [facility] Comment on above: Refill Request Start: 01-30-2022 Refill Mitesh amaral SALES FORCE DEVELOPER.PERMIT COORDINATOR Work Phone: [facility] Comment on above: Refill Request Start: 01-09-2022 End: 01-09-[address] Brendon Saenz Work Phone: [facility] Work Phone: Start: 01-09-2022 End: 01-09-[address] Brendon Saenz Work Phone: [facility] Start: 12-30-2021 End: 12-30-[address] Brendon Saenz Work Phone: [facility] Work Phone: Start: 12-30-2021 End: 12-30-[address] Brendon Saenz Work Phone: [facility] Start: 12-27-2021 Refill Mitesh amaral SALES FORCE DEVELOPER.PERMIT COORDINATOR Work Phone: [facility] Comment on above: Refill Request Start: 11-24-2021 Refill Cady Grahamc k SALES FORCE DEVELOPER.PERMIT COORDINATOR Work Phone: [facility] Comment on above: Refill Request Start: 11-22-2021 Telephone encounter Cady hughes SALES FORCE DEVELOPER.PERMIT COORDINATOR Work Phone: [facility] Comment on above: Results Start: 11-18-2021 End: 11-18-[address] Brendon Saenz Work Phone: [facility] Start: 11-06-2021 Refill Cady Zurawic k SALES FORCE DEVELOPER.PERMIT COORDINATOR Work Phone: [facility] Comment on above: Refill Request Start: 11-03-2021 Refill Cady house SALES FORCE DEVELOPER.PERMIT COORDINATOR Work Phone: [facility] Comment on above: Refill Request Start: 10-25-2021 End: 10-25-2021 Patient encounter procedure Cady Amaro SALES FORCE DEVELOPER.PERMIT COORDINATOR Work Phone: [facility] Comment on above: AYLA (acute kidney in jury) (HCC) (Primary Dx); Situational anxiety; Panic attacks; Hypoparathyroidism, unspecified hypoparathyroidism type (HCC); Thyroid disorder screening; Mixed hyperlipidemia; Primary hypertension; Bilateral leg edema Start: 10-14-2021 End: 10-14-[address] [facility] Start: 10-08-2021 ambulatory Cady house SALES FORCE DEVELOPER.PERMIT COORDINATOR Work Phone: [facility] Start: 10-08-2021 Follow-up encounter Cady hughes SALES FORCE DEVELOPER.PERMIT COORDINATOR Work Phone: [facility] Comment on above: Visit follow up Start: 10-03-2021 End: 10-03-[address] [facility]enz [facility] Start: 09-30-2021 End: 09-30-[address] Brendon Saenz Work Phone: [facility] Start: 09-23-2021 End: 09-23-[address] [facility] Start: 09-19-2021 End: 09-19-[address] [facility] Start: 09-18-2021 E-mail encounter fro m caregiver [facility] Provider [facility] Start: 09-18-2021 End: 09-18-2021 Patient encounter procedure [facility] Provider [facility] Comment on above: upcoming appointment Situational anxiety (Primary Dx); Panic attacks; Swelling of upper arm; Hypoparathyroidism, unspecified hypoparathyroidism type (HCC); AYLA (acute kidney injury) (HCC); Vitamin D deficiency Start: 09-16-2021 End: 09-16-[address] Brendon Saenz Work Phone: [facility] Start: 09-16-2021 End: 09-16-[address] Brendon Saenz Work Phone: [facility] Internal Medicine Start: 09-14-2021 Non-patient / Non-visit Dr. Aruna Saenz Work Phone: [facility] Start: 09-13-2021 Non-patient / Non-visit Dr. Aruna Saenz Work Phone: [facility] Start: 09-12-2021 Non-patient / Non-visit Dr. Aruna Saenz Work Phone: [facility] Start: 09-12-2021 End: 09-14-2021 Evaluation and management of inpatient Dr. Brendon Saenz Work Phone: [facility] Start: 09-12-2021 End: 09-12-[address] [facility] Start: 08-23-2021 End: 08-23-[address] Brendon Saenz Work Phone: [facility] Endocrinology Start: 08-22-2021 End: 08-22-[address] [facility] Start: 08-14-2021 Refill Cady house APRN.CNP Work Phone: [facility] Comment on above: Refill Request Start: 07-29-2021 Patient Msg [facility] Provider Family [facility] Comment on above: Lab orders Start: 06-02-2021 End: 06-02-[address] Brendon Saenz Work Phone: [facility] Procedures Date Procedure Procedure Detail Performing Clinician Start: 09-23-2022 Mammography Pedro hines MD Work Phone: Start: 09-13-[address] Aruan Saenz Work Phone: Start: 09-12-[address] Gelacio Saenz Work Phone: Start: 02-06-2021 Mammography Cady Zur awick SALES FORCE DEVELOPER.PERMIT COORDINATOR Work Phone: Start: 10-03-2019 Colonoscopy Cady Zur awick SALES FORCE DEVELOPER.PERMIT COORDINATOR Work Phone: Start: 10-12-2018 Lipid 1996 panel - S nan or Plasma Brendon Saenz DO Work Phone: Urine culture Dr. Brendon funes Work Phone: Plan of Treatment Date Care Activity Detail Author Start: 10-04-2027 HPV TESTING HPV TESTING [facility] Start: 10-04-2027 PAP TESTING PAP TESTING [facility] Start: 10-04-2027 Screening for malignant neoplasm of cervix [facility] Start: 03-18-2025 Annual PCP Team Chronic Disease Visit Annual PCP Team Chronic Disease Visit [facility] Start: 03-18-2025 BP Controlled (<130/80) BP Controlled (<130/80) [facility] Start: 03-18-2025 Covid-19 Vaccine ( season) Covid-19 Vaccine () [facility] Comment on above: Postponed from 01/03/2024 (Declined at t his time) Start: 03-08-2025 End: 03-08-2025 Patient encounter procedure 03/08/2025 3:40 PM EST Office Visit [facility] [address] [place] [address] Brendon Saenz DO [address] [place] [address] Annual physical [facility] Comment on above: Annual physical Start: 01-02-2025 Influenza vaccination [facility] Start: 10-31-2024 Influenza vaccination Influenza Vaccine (#1) [facility] Comment on above: Postponed from 01/03/2024 (Declined at t his time) Start: 09-14-2024 Annual PCP Team Chronic Disease Visit Annual PCP Team Chronic Disease Visit [facility] Start: 07-16-2024 Annual PCP Team Chronic Disease Visit Annual PCP Team Chronic Disease Visit [facility] Start: 03-18-2024 End: 06-17-2024 25-hydroxyvitamin D3 [Mass/volume] in Serum or Plasma VITAMIN D 25 HYDROXY Lab Routine Sleep disorder Fatigue, unspecified type Expected: 03/18/2024, Expires: 06/17/2024 [facility] Comment on above: Expected: 03/18/2024, Expires: Start: 03-18-2024 End: 06-17-2024 CBC W Auto Differential panel - Blood COMPLETE BLOOD COUNT AND DIFFERENTIAL Lab Routine Sleep disorder Recurrent URI (upper respiratory infection) Hoarseness Expected: 03/18/2024, Expires: 06/17/2024 [facility] Comment on above: Expected: 03/18/2024, Expires: Start: 03-18-2024 End: 06-17-2024 Cobalamin (Vitamin B12) [Mass/volume] in Serum or Plasma VITAMIN B12 Lab Routine Sleep disorder Fatigue, unspecified type Expected: 03/18/2024, Expires: 06/17/2024 [facility] Comment on above: Expected: 03/18/2024, Expires: Start: 03-18-2024 End: 06-17-2024 Comprehensive metabolic 2000 panel - Serum or Plasma COMPREHENSIVE METABOLIC PANEL Lab Routine Sleep disorder Recurrent URI (upper respiratory infection) Hoarseness Expected: 03/18/2024, Expires: 06/17/2024 [facility] Comment on above: Expected: 03/18/2024, Expires: Start: 03-18-2024 End: 06-17-2024 Hemoglobin A1c in Blood HEMOGLOBIN A1C Lab Routine Fatigue, unspecified type Expected: 03/18/2024, Expires: 06/17/2024 [facility] Comment on above: Expected: 03/18/2024, Expires: Start: 03-18-2024 End: 06-17-2024 IgA [Mass/volume] in Serum or Plasma IMMUNOGLOBULIN A Lab Routine Recurrent URI (upper respiratory infection) Hoarseness Expected: 03/18/2024, Expires: 06/17/2024 [facility] Comment on above: Expected: 03/18/2024, Expires: Start: 03-18-2024 End: 06-17-2024 IGG SUBCLASSES BLD IGG SUBCLASSES BLD Lab Routine Recurrent URI (upper respiratory infection) Hoarseness Expected: 03/18/2024, Expires: 06/17/2024 [facility] Comment on above: Expected: 03/18/2024, Expires: Start: 03-18-2024 End: 06-17-2024 IgM [Mass/volume] in Serum or Plasma IMMUNOGLOBULIN M Lab Routine Recurrent URI (upper respiratory infection) Hoarseness Expected: 03/18/2024, Expires: 06/17/2024 [facility] Comment on above: Expected: 03/18/2024, Expires: Start: 03-18-2024 End: 06-17-2024 Iron and Iron binding capacity panel - Serum or Plasma IRON AND TIBC Lab Routine Fatigue, unspecified type Expected: 03/18/2024, Expires: 06/17/2024 [facility] Comment on above: Expected: 03/18/2024, Expires: Start: 03-18-2024 End: 06-17-2024 Thyrotropin [Units/volume] in Serum or Plasma THYROID STIMULATING HORMONE Lab Routine Sleep disorder Fatigue, unspecified type Expected: 03/18/2024, Expires: 06/17/2024 [facility] Comment on above: Expected: 03/18/2024, Expires: Start: 03-18-2024 End: 06-17-2024 Thyroxine (T4) free [Mass/volume] in Serum or Plasma T4 FREE/FREE THYROXINE Lab Routine Sleep disorder Fatigue, unspecified type Expected: 03/18/2024, Expires: 06/17/2024 [facility] Comment on above: Expected: 03/18/2024, Expires: Start: 03-18-2024 End: 06-17-2024 Triiodothyronine (T3) Free [Mass/volume] in Serum or Plasma T3, FREE Lab Routine Sleep disorder Fatigue, unspecified type Expected: 03/18/2024, Expires: 06/17/2024 [facility] Comment on above: Expected: 03/18/2024, Expires: Start: 03-18-2024 End: 03-18-2024 Patient encounter procedure 03/18/2024 1:20 PM EST Office Visit [facility] [address] [place], [place] [id number] Brendon Saenz DO [address] [place], [place] [id number] [facility] Comment on above: Physical Start: 03-17-2024 Annual PCP Team Chronic Disease Visit Annual PCP Team Chronic Disease Visit [facility] Start: 03-17-2024 Covid-19 Vaccine ( season) Covid-19 Vaccine ( season) [facility] Comment on above: Postponed from 01/02/2023 (Declined at t his time) Start: 01-03-2024 Covid-19 Vaccine ( season) Covid-19 Vaccine ( season) [facility] Start: 01-03-2024 [facility] Start: 12-10-2023 ANNUAL PCP TEAM CHRONIC DISEASE VISIT ANNUAL PCP TEAM CHRONIC DISEASE VISIT [facility] Start: 11-01-2023 Influenza vaccination Influenza Vaccine (#1) [facility] Comment on above: Postponed from 01/02/2023 (Declined at t his time) Start: 10-13-2023 Lipid 1996 panel - Serum or Plasma Lipid Screening [facility] Start: 10-13-2023 Lipid panel Lipid Screening [facility] Start: 10-13-2023 LIPID SCREEN LIPID SCREEN [facility] Start: 09-24-2023 Mammography [facility] Start: 09-24-2023 Screening for malignant neoplasm of breast Mammogram Screening [facility] Start: 09-16-2023 ANNUAL PCP TEAM CHRONIC DISEASE VISIT ANNUAL PCP TEAM CHRONIC DISEASE VISIT [facility] Start: 07-17-2023 End: 10-16-2023 Comprehensive metabolic 2000 panel - Serum or Plasma COMP METABOLIC PANEL Lab Routine Hypertension, essential Decreased GFR Weight gain Numbness and tingling Arm edema Expected: 07/17/2023, Expires: 10/16/2023 [facility] Work Phone: Comment on above: Expected: 07/17/2023, Expires: Start: 07-17-2023 End: 10-16-2023 Natriuretic peptide.B prohormone N-Terminal [Mass/volume] in Serum or Plasma NT PRO BNP Lab Routine Hypertension, essential Decreased GFR Weight gain Numbness and tingling Arm edema Expected: 07/17/2023, Expires: 10/16/2023 [facility] Work Phone: Comment on above: Expected: 07/17/2023, Expires: Start: 05-08-2023 ANNUAL PCP TEAM CHRONIC DISEASE VISIT ANNUAL PCP TEAM CHRONIC DISEASE VISIT [facility] Start: 03-17-2023 End: 06-16-2023 Cobalamin (Vitamin B12) [Mass/volume] in Serum or Plasma VITAMIN B12 BLOOD Lab Routine Vitamin B12 deficiency Expected: 03/17/2023, Expires: 06/16/2023 [facility] Work Phone: Comment on above: Expected: 03/17/2023, Expires: 4 Start: 03-17-2023 End: 06-16-2023 Thyrotropin [Units/volume] in Serum or Plasma TSH BLD Lab Routine Borderline abnormal thyroid function test Expected: 03/17/2023, Expires: 06/16/2023 [facility] Work Phone: Comment on above: Expected: 03/17/2023, Expires: 4 Start: 03-17-2023 End: 06-16-2023 Thyroxine (T4) free [Mass/volume] in Serum or Plasma T4 FREE/FREE THYROX Lab Routine Borderline abnormal thyroid function test Expected: 03/17/2023, Expires: 06/16/2023 [facility] Work Phone: Comment on above: Expected: 03/17/2023, Expires: 4 Start: 03-17-2023 End: 06-16-2023 Triiodothyronine (T3) Free [Mass/volume] in Serum or Plasma T3 FREE BLD Lab Routine Borderline abnormal thyroid function test Expected: 03/17/2023, Expires: 06/16/2023 [facility] Work Phone: Comment on above: Expected: 03/17/2023, Expires: 4 Start: 01-12-2023 Urine microalbumin profile [facility] Start: 01-02-2023 Influenza vaccination [facility] Start: 01-01-2023 DIABETES SCREEN DIABETES SCREEN [facility] Start: 01-01-2023 Diabetes Screening Diabetes Screening [facility] Start: 10-25-2022 ANNUAL PCP TEAM CHRONIC DISEASE VISIT ANNUAL PCP TEAM CHRONIC DISEASE VISIT [facility] Start: 09-18-2022 ANNUAL PCP TEAM CHRONIC DISEASE VISIT ANNUAL PCP TEAM CHRONIC DISEASE VISIT [facility] Start: 07-17-2022 End: 09-16-2022 Comprehensive metabolic 1999 panel - Serum or Plasma COMP METABOLIC PANEL Lab Routine AYLA (acute kidney injury) (HCC) Expected: 07/17/2022, Expires: 09/16/2022 [facility] Work Phone: Comment on above: Expected: 07/17/2022, Expires: 3 Start: 05-08-2022 End: 07-08-2022 CBC W Auto Differential panel - Blood CBC + DIFF Lab Routine Hypertension, essential Expected: 05/08/2022, Expires: 07/08/2022 [facility] Work Phone: Comment on above: Expected: 05/08/2022, Expires: 3 Start: 05-08-2022 End: 07-08-2022 Comprehensive metabolic 2000 panel - Serum or Plasma COMP METABOLIC PANEL Lab Routine Hypertension, essential Expected: 05/08/2022, Expires: 07/08/2022 [facility] Work Phone: Comment on above: Expected: 05/08/2022, Expires: 3 Start: 05-08-2022 End: 07-08-2022 Hemoglobin A1c in Blood HGB A1C Lab Routine Hypertension, essential Expected: 05/08/2022, Expires: 07/08/2022 [facility] Work Phone: Comment on above: Expected: 05/08/2022, Expires: 3 Start: 05-08-2022 End: 07-08-2022 Lipid 1996 panel - Serum or Plasma LIPID PANEL BASIC Lab Routine Mixed hyperlipidemia Expected: 05/08/2022, Expires: 07/08/2022 [facility] Work Phone: Comment on above: Expected: 05/08/2022, Expires: Start: 05-08-2022 End: 07-08-2022 Parathyrin.intact [Mass/volume] in Serum or Plasma PTH INTACT BLD Lab Routine Hypoparathyroidism, unspecified hypoparathyroidism type (HCC) Expected: 05/08/2022, Expires: 07/08/2022 [facility] Work Phone: Comment on above: Expected: 05/08/2022, Expires: 3 Start: 05-08-2022 End: 07-08-2022 Thyrotropin [Units/volume] in Serum or Plasma TSH BLD Lab Routine Hypoparathyroidism, unspecified hypoparathyroidism type (HCC) Expected: 05/08/2022, Expires: 07/08/2022 [facility] Work Phone: Comment on above: Expected: 05/08/2022, Expires: 3 Start: 05-08-2022 End: 07-08-2022 Thyroxine (T4) free [Mass/volume] in Serum or Plasma T4 FREE/FREE THYROX Lab Routine Hypoparathyroidism, unspecified hypoparathyroidism type (HCC) Expected: 05/08/2022, Expires: 07/08/2022 [facility] Work Phone: Comment on above: Expected: 05/08/2022, Expires: 3 Start: 05-08-2022 End: 07-08-2022 Triiodothyronine (T3) [Mass/volume] in Serum or Plasma T3 BLD Lab Routine Hypoparathyroidism, unspecified hypoparathyroidism type (HCC) Expected: 05/08/2022, Expires: 07/08/2022 [facility] Work Phone: Comment on above: Expected: 05/08/2022, Expires: 3 Start: 02-22-2022 End: 04-24-2022 Lipid 1996 panel - Serum or Plasma LIPID PANEL BASIC Lab Routine Mixed hyperlipidemia Expected: 02/22/2022, Expires: 04/24/2022 [facility] Work Phone: Comment on above: Expected: 02/22/2022, Expires: 2 Start: 02-13-2022 ANNUAL PCP TEAM CHRONIC DISEASE VISIT ANNUAL PCP TEAM CHRONIC DISEASE VISIT [facility] Start: 02-06-2022 Mammography MAMMOGRAM [facility] Start: 01-25-2022 End: 03-27-2022 Lipid 1996 panel - Serum or Plasma LIPID PANEL BASIC Lab Routine Mixed hyperlipidemia Expected: 01/25/2022, Expires: 03/27/2022 [facility] Work Phone: Comment on above: Expected: 01/25/2022, Expires: 2 Start: 01-02-2022 Influenza vaccination INFLUENZA (#1) [facility] Start: 12-10-2021 HPV TESTING HPV TESTING [facility] Start: 12-10-2021 PAP TESTING PAP TESTING [facility] Start: 11-24-2021 End: 01-24-2022 Comprehensive metabolic 2000 panel - Serum or Plasma COMP METABOLIC PANEL Lab Routine AYLA (acute kidney injury) (HCC) Expected: 11/24/2021, Expires: 01/24/2022 [facility] Work Phone: Comment on above: Expected: 11/24/2021, Expires: 2 Start: 11-24-2021 End: 01-24-2022 Thyrotropin [Units/volume] in Serum or Plasma TSH BLD Lab Routine Hypoparathyroidism, unspecified hypoparathyroidism type (HCC) Thyroid disorder screening Expected: 11/24/2021, Expires: 01/24/2022 [facility] Work Phone: Comment on above: Expected: 11/24/2021, Expires: 2 Start: 11-24-2021 End: 01-24-2022 Thyroxine (T4) free [Mass/volume] in Serum or Plasma T4 FREE/FREE THYROX Lab Routine Hypoparathyroidism, unspecified hypoparathyroidism type (HCC) Thyroid disorder screening Expected: 11/24/2021, Expires: 01/24/2022 [facility] Work Phone: Comment on above: Expected: 11/24/2021, Expires: 2 Start: 11-24-2021 End: 01-24-2022 Triiodothyronine (T3) [Mass/volume] in Serum or Plasma T3 BLD Lab Routine Hypoparathyroidism, unspecified hypoparathyroidism type (HCC) Thyroid disorder screening Expected: 11/24/2021, Expires: 01/24/2022 [facility] Work Phone: Comment on above: Expected: 11/24/2021, Expires: 2 Start: 10-20-2021 Pneumococcal Vaccine: 50+ (1 of 1 - PCV) Pneumococcal Vaccine: 50+ (1 of 1 - PCV) [facility] Start: 10-20-2021 SHINGRIX VACCINE (1 of 2) SHINGRIX VACCINE (1 of 2) [facility] Start: 09-18-2021 End: 11-18-2021 Calcium [Mass/volume] in Serum or Plasma CALCIUM TOTAL BLD Lab Routine Hypoparathyroidism, unspecified hypoparathyroidism type (HCC) Expected: 09/18/2021, Expires: 11/18/2021 [facility] Work Phone: Comment on above: Expected: 09/18/2021, Expires: 2 Start: 09-18-2021 End: 11-18-2021 CBC panel - Blood by Automated count CBC Lab Routine Hypoparathyroidism, unspecified hypoparathyroidism type (HCC) AYLA (acute kidney injury) (HCC) Expected: 09/18/2021, Expires: 11/18/2021 [facility] Work Phone: Comment on above: Expected: 09/18/2021, Expires: 2 Start: 09-18-2021 End: 11-18-2021 Comprehensive metabolic 2000 panel - Serum or Plasma COMP METABOLIC PANEL Lab Routine Hypoparathyroidism, unspecified hypoparathyroidism type (HCC) AYLA (acute kidney injury) (HCC) Expected: 09/18/2021, Expires: 11/18/2021 [facility] Work Phone: Comment on above: Expected: 09/18/2021, Expires: 2 Start: 09-18-2021 End: 11-18-2021 Hemoglobin A1c/Hemoglobin.total in Blood HGB A1C Lab Routine Expected: 09/18/2021, Expires: 11/18/2021 [facility] Work Phone: Comment on above: Expected: 09/18/2021, Expires: 2 Start: 09-18-2021 End: 11-18-2021 LIPID PANEL BASIC LIPID PANEL BASIC Lab Routine Expected: 09/18/2021, Expires: 11/18/2021 [facility] Work Phone: Comment on above: Expected: 09/18/2021, Expires: 2 Start: 09-18-2021 End: 11-18-2021 Thyrotropin [Units/volume] in Serum or Plasma TSH BLD Lab Routine Hypoparathyroidism, unspecified hypoparathyroidism type (HCC) Expected: 09/18/2021, Expires: 11/18/2021 [facility] Work Phone: Comment on above: Expected: 09/18/2021, Expires: 2 Start: 09-18-2021 End: 11-18-2021 VITAMIN D 25 HYDROXY VITAMIN D 25 HYDROXY Lab Routine Vitamin D deficiency Expected: 09/18/2021, Expires: 11/18/2021 [facility] Work Phone: Comment on above: Expected: 09/18/2021, Expires: Start: 09-16-2021 Patient referral [facility] Work Phone: Start: 09-14-2021 Patient discharge [facility] Work Phone: Start: 09-12-2021 End: 09-13-2021 [facility] Work Phone: Start: 09-12-2021 Ambulation without limitation [facility] Work Phone: Start: 09-12-2021 Assessment of risk of venous thromboembolism [facility] Work Phone: Start: 09-12-2021 Insertion of catheter into peripheral vein [facility] Work Phone: Start: 09-12-2021 Providing care according to standard [facility] Work Phone: Start: 09-12-2021 Referral to service [facility] Work Phone: Start: 09-12-2021 Following clinical pathway protocol [facility] Work Phone: Start: 09-12-2021 Admission procedure [facility] Work Phone: Start: 09-12-2021 Bacteria identified in Urine by Culture Urine Culture [facility] Work Phone: Start: 09-12-2021 Urine culture Urine Culture [facility] Work Phone: Start: 07-16-2021 COVID-19 VACCINE (3 - Booster for Moderna series) COVID-19 VACCINE (3 - Booster for Moderna series) [facility] Start: 04-12-2021 COVID-19 VACCINE (3 - Booster for Moderna series) COVID-19 VACCINE (3 - Booster for Moderna series) [facility] Start: 04-12-2021 COVID-19 VACCINE (3 - Moderna series) COVID-19 VACCINE (3 - Moderna series) [facility] Start: 02-15-2021 COVID-19 VACCINE (2 - Moderna series) COVID-19 VACCINE (2 - Moderna series) [facility] Start: 01-01-2021 Complete blood count Hemoglobin/Hematocrit [facility] Start: 01-01-2021 Creatinine measurement Serum Creatinine [facility] Start: 01-01-2021 Serum Creatinine Serum Creatinine [facility] Start: 10-02-2020 Colonoscopy COLONOSCOPY [facility] Start: 10-02-2020 COLORECTAL CANCER SCREENING COLORECTAL CANCER SCREENING [facility] Start: 10-20-2016 COLOGUARD (FIT-DNA) COLOGUARD (FIT-DNA) [facility] Start: 10-20-2016 Colonoscopy COLONOSCOPY [facility] Start: 10-20-2016 COLORECTAL CANCER SCREENING COLORECTAL CANCER SCREENING [facility] Start: 10-20-[address] COLONOGRAPHY [facility] Start: 10-20-2016 FECAL OCCULT BLOOD FECAL OCCULT BLOOD [facility] Start: 10-20-2016 Screening for malignant neoplasm of colon [facility] Start: 10-20-2016 SIGMOIDOSCOPY SIGMOIDOSCOPY [facility] Start: 10-20-1990 Hepatitis B Vaccine (1 of 3 - 19+ 3-dose series) Hepatitis B Vaccine (1 of 3 - 19+ 3-dose series) [facility] Start: 10-20-1989 BP CONTROLLED (<130/80) BP CONTROLLED (<130/80) [facility] Start: 10-20-1989 HEPATITIS C SCREENING HEPATITIS C SCREENING [facility] Start: 10-20-1989 Hepatitis C screening Hepatitis C Screening [facility] Start: 10-20-1989 HIV SCREENING HIV SCREENING [facility] Start: 10-20-1989 HIV screening HIV Screening [facility] Start: 1971 HEPATITIS B (1 of 3 - 3-dose series) HEPATITIS B (1 of 3 - 3-dose series) [facility] Start: 1971 Hepatitis B Vaccine (1 of 3 - 3-dose series) Hepatitis B Vaccine (1 of 3 - 3-dose series) [facility] End: 10-14-2024 DBT Breast - bilateral screening SARAH SCREENING W HETAL Radiology Routine Encounter for screening mammogram for malignant neoplasm of breast 1 Occurrences starting 09/15/2023 until 10/14/2024 [facility] Work Phone: Comment on above: 1 Occurrences starting 09/15/2023 until 10/14/2024 End: 09-15-2025 DBT Breast - bilateral screening SARHA SCREENING W HETAL Radiology Routine Encounter for screening mammogram for breast cancer 1 Occurrences starting 08/16/2024 until 09/15/2025 [facility] Work Phone: Comment on above: 1 Occurrences starting 08/16/2024 until 09/15/2025 End: 10-18-2022 Dup-scan xtr veins unilateral/limited study US DVT UPPER LT Radiology Routine Swelling of upper arm 1 Occurrences starting 09/18/2021 until 10/18/2022 [facility] Work Phone: Comment on above: 1 Occurrences starting 09/18/2021 until 10/18/2022 End: 09-14-2024 Echocardiography ECHO Cardiology Routine Hypertension, essential Uncontrolled hypertension 1 Occurrences starting 09/15/2023 until 09/14/2024 [facility] Comment on above: 1 Occurrences starting 09/15/2023 until 09/14/2024 End: 07-16-2024 EMG(NEURO/NI) EMG(NEURO/NI) EMG Routine Hypertension, essential Decreased GFR Weight gain Numbness and tingling Arm edema 1 Occurrences starting 07/17/2023 until 07/16/2024 [facility] Work Phone: Comment on above: 1 Occurrences starting 07/17/2023 until 07/16/2024 End: 01-08-2024 Hepatobil syst imag inc gb w/pharma intervenj NM HEPATOBILIARY W EF AND/OR RX Radiology Routine Calculus of gallbladder without cholecystitis without obstruction 1 Occurrences starting 12/09/2022 until 01/08/2024 [facility] Work Phone: Comment on above: 1 Occurrences starting 12/09/2022 until 01/08/2024 PAP TEST PAP TEST Lab [facility] Encounter for screening for malignant neoplasm of cervix Special screening examination for human papillomavirus (HPV) 10/03/2022 3:59 PM EDT [facility] Work Phone: Patient referral [facility] Work Phone: End: 04-25-2023 Screening mammography bi 2-view breast inc cad SARAH SCREENING Radiology Routine Encounter for screening mammogram for breast cancer 1 Occurrences starting 03/26/2022 until 04/25/2023 [facility] Work Phone: Comment on above: 1 Occurrences starting 03/26/2022 until 04/25/2023 End: 04-17-2025 SPIROMETRY - BASELINE AND POST DILATOR SPIROMETRY - BASELINE AND POST DILATOR PFT Routine Recurrent URI (upper respiratory infection) Hoarseness Bronchitis, mucopurulent recurrent (HCC) 1 Occurrences starting 03/18/2024 until 04/17/2025 [facility] Comment on above: 1 Occurrences starting 03/18/2024 until 04/17/2025 End: 01-08-2024 Ultrasound elastography parenchyma US ELASTOGRAPHY LIVER Radiology Routine Fatty liver 1 Occurrences starting 12/09/2022 until 01/08/2024 [facility] Work Phone: Comment on above: 1 Occurrences starting 12/09/2022 until 01/08/2024 End: 01-08-2024 US ABD RIGHT UPPER QUADRANT US ABD RIGHT UPPER QUADRANT Radiology Routine Fatty liver 1 Occurrences starting 12/09/2022 until 01/08/2024 [facility] Work Phone: Comment on above: 1 Occurrences starting 12/09/2022 until 01/08/2024 End: 09-14-2024 US Carotid arteries - bilateral US CAROTID ARTERIES [facility] Lab Routine Hypertension, essential Uncontrolled hypertension 1 Occurrences starting 09/15/2023 until 09/14/2024 [facility] Comment on above: 1 Occurrences starting 09/15/2023 until 09/14/2024 End: 09-14-2024 US Renal artery US RENAL ARTERY [facility] Lab Routine Hypertension, essential Uncontrolled hypertension 1 Occurrences starting 09/15/2023 until 09/14/2024 [facility] Comment on above: 1 Occurrences starting 09/15/2023 until 09/14/2024 End: 08-15-2024 XR Cervical spine AP and Lateral and oblique XR CERV OTHER 4V AP/LAT/OBL Radiology STAT Hypertension, essential Decreased GFR Weight gain Numbness and tingling Arm edema 1 Occurrences starting 07/17/2023 until 08/15/2024 [facility] Work Phone: Comment on above: 1 Occurrences starting 07/17/2023 until 08/15/2024 End: 04-17-2025 XR Chest PA and Lateral XR CHEST 2V FRONTAL/LAT Radiology Routine Recurrent URI (upper respiratory infection) Hoarseness 1 Occurrences starting 03/18/2024 until 04/17/2025 [facility] Work Phone: Comment on above: 1 Occurrences starting 03/18/2024 until 04/17/2025 [facility] Immunizations Immunization Date Immunization Notes Care Provider [facility] 03-23-2023 influenza virus vaccine, unspecified formulation Brendon Saenz DO Work Phone: [facility] 02-19-2022 influenza virus vaccine, unspecified formulation Brendon Saezn DO Work Phone: [facility] 02-15-2021 Covid (Moderna) Dr. Brendon khan Work Phone: [facility] Work Phone: 02-06-2021 influenza, seasonal, injectable Dr. Brendon Saenz Work Phone: [facility] Work Phone: 01-18-2021 Covid (Moderna) Dr. Brendon khan Work Phone: [facility] Work Phone: 01-31-2020 influenza, seasonal, injectable Dr. Brendon Saenz Work Phone: [facility] Work Phone: 01-27-2019 influenza, seasonal, injectable Dr. Brendon Saenz Work Phone: [facility] Work Phone: 06-14-2018 influenza, seasonal, injectable Dr. Brendon Saenz Work Phone: [facility] Work Phone: 01-12-2013 tetanus toxoid, redu angela diphtheria toxoid, and acellular pertussis vaccine, adsorbed Cady Gladysck [employer].PERMIT COORDINATOR Work Phone: [facility] 07-19-1999 diphtheria and tetan us toxoids, adsorbed for pediatric use Dr. Brendon Saenz Work Phone: [facility] Work Phone: Payers Date Payer Category Payer Self-pay [id number] 2022 Unknown [id number] 2018 Private Health Insurance [employer] PPO [id number] 2018-Present [phone] [address] [place] [id number] [facility] [id number] 2018 Private Health Insurance [id number] Private Health Insurance [id number] Unknown [id number] Unknown [id number] [id number] .462 Unknown [id number] 2.16.840.1.036987.3.579.2 .462 Unknown [id number] 2.16.840.1.688733.3.579.2 .462 Unknown [id number] 2.16.840.1.890262.3.579.2 .462 Unknown [id number] 2.16.840.1.499703.3.579.2 .462 Unknown [id number] 2.16.840.1.054385.3.579.2 .462 Unknown [id number] 2.16.840.1.288211.3.579.2 .462 Unknown [id number] 2.16.840.1.359895.3.579.2 .462 Unknown [id number] 2.840.1.864025.3.579.2 .462 Unknown [id number] 2.840.1.606875.3.579.2 .462 Unknown [id number] 2.840.1.520185.3.579.2 .462 Unknown [id number] 2.840.1.445278.3.579.2 .462 Unknown [id number] 2.840.1.411534.3.579.2 .462 Unknown [id number] .840.1.421951.3.579.2 .462 Unknown [id number] 2.840.1.903655.3.579.2 .462 Unknown [id number] 2.840.1.478227.3.579.2 .462 Unknown [id number] 2.840.1.988505.3.579.2 .462 Unknown [id number] .840.1.974238.3.579.2 .462 Unknown [id number] .840.1.976899.3.579.2 .462 Unknown [id number] .840.1.175818.3.579.2 .462 Unknown [id number] .840.1.751432.3.579.2 .462 Unknown [id number] .840.1.528279.3.579.2 .462 Unknown [id number] .840.1.918837.3.579.2 .462 Unknown [id number] 2.840.1.198651.3.579.2 .462 Unknown [id number] 2.840.1.944772.3.579.2 .462 Unknown [id number] 2.840.1.235834.3.579.2 .462 Unknown [id number] 2.16.840.1.790537.3.579.2 .462 Unknown [id number] 2.16.840.1.250148.3.579.2 .462 Unknown [id number] 2.16.840.1.716588.3.579.2 .462 Unknown [id number] 2.16.840.1.584713.3.579.2 .462 Unknown [id number] 2.16.840.1.645570.3.579.2 .462 Social History Date Type Detail Facility Start: 12-28-2012 End: 03-18-2024 Tobacco smoking status CTIS Ex-smoker [facility] Work Phone: Start: 05-04-1990 End: 05-04-2002 History of tobacco use Current smoker [facility] Work Phone: Start: 12-28-2012 End: 09-15-2022 Cigarettes smoked current (pack per day) - Reported 0.5 [facility] Start: 12-28-2012 End: 03-18-2024 Tobacco use and exposure Smokeless tobacco non-user [facility] Work Phone: Start: 01-23-2021 End: 03-18-2024 Alcohol intake Current non-drinker of alcohol (finding) [facility] Start: 07-13-2020 End: 05-08-2022 History SDOH Alcohol Frequency 1 [facility] Start: 07-13-2020 End: 05-08-2022 History SDOH Social Connections Phone 2 [facility] Start: 07-13-2020 End: 05-08-2022 History SDOH Social Connections Living 5 [facility] Start: 07-13-2020 End: 05-08-2022 History SDOH Physical Activity DPW 0 [facility] Start: 07-13-2020 End: 05-08-2022 History SDOH Financial 4 [facility] Start: 06-01-2019 Education 21 [facility] Start: 1970 Sex Assigned At Not on file C [facility] Start: 08-23-2021 End: 10-01-2021 Tobacco smoking status CTIS Unknown if ever smoked [facility] Work Phone: Start: 09-29-2019 Cigarettes [facility] Work Phone: Start: 1970 Sex Assigned At Female W [facility] Work Phone: Start: 09-18-2021 History SDOH Alcohol Std Drinks 98 [facility] Start: 09-18-2021 History SDOH Financial 3 [facility] Start: 09-08-2021 End: 10-25-2021 Exposure to SARS-CoV-2 (event) Not sure [facility] Start: 05-04-1990 End: 05-04-2002 History of tobacco use Cigarette Smoker [facility] Work Phone: Start: 05-08-2022 End: 09-15-2022 Social connection and isolation panel [facility] Do you belong to any clubs or organizations such as latter day groups, unions, fraternal or athletic groups, or school groups? No [facility] Are you now , , , , never or living with a partner? [facility] How often to you hav e a drink containing alcohol? Never [facility] Start: 04-04-[address] inks containing alcohol do you have on a typical day? Patient does not drink [facility] How hard is it for y ou to pay for the very basics like food, housing, medical care, and heating Not very hard [facility] Do you feel stress - tense, restless, nervous, or anxious, or unable to sleep at night because your mind is troubled all the time - these days [OSQ] Rather much [facility] (I/We) worried ismael er (my/our) food would run out before (I/we) got money to buy more. Never true [facility] Goals Date Patient Goal Desired Activity /State Functional Status Date Assessment Result Facility 09-14-2021 Functional status Up ad yousif;Bath room Privilege [facility] Work Phone: 11-17-2014 Are you deaf, or do you have serious difficulty hearing No 11/17/2014 9:28 AM Mary Vargas MA No [facility] 11-17-2014 Are you blind, or do you have serious difficulty seeing, even when wearing glasses No 11/17/2014 9:28 AM EDT Mary De Leon MA No [facility] 11-17-2014 Do you have serious difficulty walking or climbing stairs No 11/17/2014 9:28 AM EDT Mary De Leon MA No [facility] 11-17-2014 Do you have difficul ty dressing or bathing No 11/17/2014 9:28 AM EDT Mary De Leon MA No [facility] 11-17-2014 Because of a physica l, mental, or emotional condition, do you have difficulty doing errands alone such as visiting a physician's office or shopping No 11/17/2014 9:28 AM EDT Mary De Leon MA No [facility] Mental Status Date Assessment Result Facility 09-14-2021 Cognitive function Patient Uday prince Person;Place;Time [facility] Work Phone: 09-13-2021 Cognitive function Voice/Name [facility] Work Phone: 09-12-2021 Cognitive function Level Of Cons ciousness Awake;Alert;Appropriate;Fol lows Commands [facility] Work Phone: 11-17-2014 Because of a physica l, mental, or emotional condition, do you have serious difficulty concentrating, remembering, or making decisions No 11/17/2014 9:28 AM EDT Mary De Leon MA [facility] Clinical Notes 04-22-2017 to 03-08-2025 Telephone Encounter - Tia Brooks LPN - 08/19/2024 10:29 AM EDTTelephone Encounter - Tia Brooks LPN - 08/19/2024 10:29 AM Brendon De Jesus DO - 03/18/2024 1:43 PM EST Note Date & Type Note Facility 03-08-2025 Note HNO ID: [id number] Author: BRENDON SAENZ DO Service: ? Author Type: Physician Type: Progress Notes Filed: 03/08/2025 22:33 Note Text: CC: Ioana Fletcher is a 54 year old female who presents to the office for physical HPI: Extreme fatigue symptoms, was falling asleep typing. She isn't sleeping well at night though. No obvious history of narcolepsy or ANKIT in herself or in family member in the past. Is concerned when driving on a highway for this feeling of wanting to nod off to sleep. She states that she can also fall asleep at work often just when she is working/typing. She was just testing for ANKIT with home sleep study when seen by Luisa Merlos CNP in sleep medicine, she has a PSG PAP titration to determine CPAP vs. Bipap or other coming up. Was told also to consider starting on GLP1 such as Wegovy to help with weight loss for the ANKIT- she is willing to consider this. Hypoparathyroidism + CKD, stage 3, sees Avionics Electrical Engineer regularly as well as Dr. Benítez Respiratory Tech whom agrees with ideas of starting a GLP 1 agonist, no new changes in labs. No new symptoms HTN, well controlled recently, no CP or palpitations or syncope or edema legs Mood, stable on current medication regiment, taking remeron Hemorrhoids, external and internal, long standing, seen on recent colonoscopy. She is interested in prn use of a suppository to help with pain and bleeding that is intermittent. PAST MEDICAL HISTORY Diagnosis Date Anemia likely due to iron deficiency Anxiety Dermatitis, seborrheic HTN (hypertension) 11/23/2017 Hypoparathyroidism (HCC) Nasal polyps Dr. Sheth ENT, CT sinuses 11/20/12 Nephrolithiasis Panic attacks Vitamin D deficiency PAST SURGICAL HISTORY Procedure Laterality Date ADENOIDECTOMY PRIMARY AGE 13/> OFFICE ENDOMETRIAL ABLATION 02/2017 Ela endometrial ablation TOOTH EXTRACTION Social History: SOCIAL HISTORY[1] FAMILY HISTORY Problem Relation Age of Onset Diabetes Mother Hypertension Mother Lipids Mother Diabetes Brother Asthma Brother Diabetes Brother Current Outpatient prescriptions: spironolactone (ALDACTONE) 50 mg tablet Take 1 tablet by mouth once daily. losartan (COZAAR) 100 mg tablet take 1 tablet by mouth once daily hydrocortisone (ANUSOL-HC) 25 mg suppository 1 Suppository by RECTAL route two times a day as needed (hemorrhoids/rectal pain). triamcinolone acetonide (KENALOG) 0.1 % ointment Apply to affected area two times a day. For 10-14 days. labetalol (TRANDATE) 100 mg tablet Take 200 mg by mouth three times a day. gabapentin (NEURONTIN) 300 mg capsule Take 1 capsule by mouth three times a day as needed for up to 30 days. NIFEdipine ER (PROCARDIA XL) 30 mg 24 hr tablet Take 1 tablet by mouth daily at bedtime. For blood pressure (Patient taking differently: Take 90 mg by mouth daily at bedtime. For blood pressure) calcitriol (ROCALTROL) 0.5 mcg capsule Take 0.5 mcg by mouth two times a day. desvenlafaxine ER (PRISTIQ) 100 mg 24 hr tablet Take 50 mg by mouth once daily. clonazePAM (KLONOPIN) 0.5 mg tablet Take 1 tablet by mouth once daily as needed for up to 30 days. calcium carbonate/vitamin D3 (CALCIUM 500 + D ORAL) Take 2 Each by mouth once daily. mirtazapine (REMERON) 15 mg tablet Take 30 mg by mouth daily at bedtime. Per Psych- Keyur Dubon CNP hydrocortisone 2.5 % cream Apply 1 application to affected area daily at bedtime. Location: facial, avoid eyes/lips (Patient not taking: Reported on 07/17/2023) Allergies: ALLERGIES Allergen Reactions Latex Hives Penicillins Shortness of Breath Prednisone GI Upset, Other: See Comments [place] jittery Wellbutrin [Bupropi* Other: See Comments sweating ROS: See HPI PE: 03/08/25 1533 BP: 120/80 Pulse: 80 Resp: 16 Temp: (!) 35.9 ?C (96.7 ?F) TempSrc: Right Tympanic Weight: 132.5 kg (292 lb) Height: 165 cm (5' 4.96) Gen: AANDO, NAD, non-toxic appearing, Pleasant, cooperative,appears fatigued HEENT: NT/AC, PERRLA, EOMs intact b/l, nares clear and patent b/l, pharynx without erythema, exudate or lesions. MMM, Uvula midline. EACs without erythema or debris. TMs pearly [place] with intact landmarks b/l. Neck: supple, No cervical LAD, no thyromegaly, no carotid bruits CV: RRR, normal S1 and S2, no murmurs, no gallops, no rubs, Pulses 2+ and symmetric in UE and LE b/l Lungs: normal respiratory effort, CTA b/l, no wheezing or rhonchi or rales, coughing Abd: soft,obese, NT, ND, +BS, no hepatosplenomegaly MS: FROM all 4 extremities Neuro: CN II-XII intact b/l, strength 5/5 b/l UE and LE, DTRs 2/4 UE and LE, sensation intact. Skin: warm, dry, intact, No rashes or lesions on exposed skin. No edema, normal pulses ASSESSMENT/PLAN: 1. Well adult exam - ICD9: V70.0, ICD10: Z00.00 (primary diagnosis) - Counseled on healthy diet and regular exercise - Discussed need and benefit for weight loss. BMI 48.65 kg/(m2) - HEMOGLOBIN A1C (more content not included)... [facility] 08-19-2024 Telephone encounter Note Prescription Refill Information The patient has been identified by name and date of : Yes Caregiver verified no other encounters exist for this prescription request: Yes Caregiver confirmed with patient/requestor that no other refills are due, in the near future, with this provider at this time: Yes The last office visit in the department: 03/18/2024 Does the patient have a future office visit with this provider/department: No Visit date not found Requested Prescriptions Pending Prescriptions Disp Refills losartan (COZAAR) 100 mg tablet [Pharmacy Med Name: LOSARTAN POTASSIUM 100 MG TAB] 90 tablet 0 Sig: take 1 tablet by mouth once daily Tia Brooks LPN August 19, 2024 10:29 AM [facility] 08-19-2024 Miscellaneous Notes Prescription Refill Information The patient has been identified by name and date of : Yes Caregiver verified no other encounters exist for this prescription request: Yes Caregiver confirmed with patient/requestor that no other refills are due, in the near future, with this provider at this time: Yes The last office visit in the department: 03/18/2024 Does the patient have a future office visit with this provider/department: No Visit date not found Requested Prescriptions Pending Prescriptions Disp Refills losartan (COZAAR) 100 mg tablet [Pharmacy Med Name: LOSARTAN POTASSIUM 100 MG TAB] 90 tablet 0 Sig: take 1 tablet by mouth once daily Tia Brooks LPN August 19, 2024 10:29 AM documented in this encounter [facility] 08-16-2024 Note Patient Outreach (FA MPWS) IOANA FLETCHER ([id number]) 1970 F Date Time Provider Department 08/16/24 BRENDON SAENZPWS During your visit today, we recorded the following information about you: Allergies As of Date: 08/16/2024 Noted Allergy Reaction LATEX 08/17/2013 4 - Hives PENICILLINS 12/28/2012 12 - Shortness of Breath PREDNISONE 03/19/2016 8 - GI Upset 14 - Other: See Comments Comments: [place] jittery WELLBUTRIN (BUPROPION HCL) 12/03/2016 14 - Other: See Comments Comments: sweating Date Reviewed: 03/18/2024 Reviewed by: Anu Vanegas LPN - Fully Assessed Visit Diagnosis:Encounter for screening mammogram for breast cancer [Z12.31] Order(s):[facility] SCREENING W HETAL [[id number]] Order #: [id number] FUTURE Prescriptions as of 09/16/2024 - spironolactone (ALDACTONE) 50 mg tablet Take 1 tablet by mouth once daily. - losartan (COZAAR) 100 mg tablet take 1 tablet by mouth once daily - hydrocortisone (ANUSOL-HC) 25 mg suppository 1 Suppository by RECTAL route two times a day as needed (hemorrhoids/rectal pain). - triamcinolone acetonide (KENALOG) 0.1 % ointment Apply to affected area two times a day. For 10-14 days. - labetalol (TRANDATE) 100 mg tablet Take 200 mg by mouth three times a day. - gabapentin (NEURONTIN) 300 mg capsule Take 1 capsule by mouth three times a day as needed for up to 30 days. - NIFEdipine ER (PROCARDIA XL) 30 mg 24 hr tablet Take 1 tablet by mouth daily at bedtime. For blood pressure - calcitriol (ROCALTROL) 0.5 mcg capsule Take 0.5 mcg by mouth two times a day. - desvenlafaxine ER (PRISTIQ) 100 mg 24 hr tablet Take 50 mg by mouth once daily. - clonazePAM (KLONOPIN) 0.5 mg tablet Take 1 tablet by mouth once daily as needed for up to 30 days. - calcium carbonate/vitamin D3 (CALCIUM 500 + D ORAL) Take 2 Each by mouth once daily. - mirtazapine (REMERON) 15 mg tablet Take 30 mg by mouth daily at bedtime. Per Psych- Keyur Dubon CNP - hydrocortisone 2.5 % cream Apply 1 application to affected area daily at bedtime. Location: facial, avoid eyes/lips Problem List As Of Date 08/16/2024 Noted Resolved HYPOPARATHYROIDISM [E20.9] 09/06/2007 Morbid obesity [...] M79.605] 04/22/2017 11/23/2017 RUQ pain [R10.11] 10/23/2017 Uncontrolled hypertension [I10] 11/23/2017 Cervical (neck) region somatic dysfunction [M99*02/13/2021 Somatic dysfunction of spine, thoracic [M99.02] 02/13/2021 Acute bilateral thoracic back pain [M54.6] 02/13/2021 Myalgia [M79.10] 09/18/2022 Fatigue [R53.83] 09/18/2022 RUQ abdominal pain [R10.11] 09/18/2022 Calculus of gallbladder without cholecystitis w*09/18/2022 Obesity, Class III, BMI >= 40 [E66.813] 12/09/2022 Routine physical examination [Z00.00] 12/10/2022 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] 12/10/2022 Fatty liver [K76.0] 12/10/2022 Mixed hyperlipidemia [E78.2] 12/10/2022 Hypertension, essential [I10] 12/10/2022 Stage 3a chronic kidney disease (HCC) [N18.31] 03/17/2023 Vitamin B12 deficiency [E53.8] 03/17/2023 Borderline abnormal thyroid function test [R94.*03/17/2023 Situational anxiety [F41.8] 03/17/2023 Encounter Status:Closed by NAM ESCALONA on 09/16/24 [facility] 05-26-2024 Telephone encounter Note Prescription Refill Information The patient has been identified by name and date of : Yes Caregiver verified no other encounters exist for this prescription request: Yes Caregiver confirmed with patient/requestor that no other refills are due, in the near future, with this provider at this time: Yes The last office visit in the department: 03/18/2024 Does the patient have a future office visit with this provider/department: No Requested Prescriptions Pending Prescriptions Disp Refills losartan (COZAAR) 100 mg tablet 90 tablet 0 Sig: Take 1 tablet by mouth once daily. LAILA Lai May 26, 2024 11:53 AM [facility] 05-26-2024 Miscellaneous Notes Prescription Refill Information The patient has been identified by name and date of : Yes Caregiver verified no other encounters exist for this prescription request: Yes Caregiver confirmed with patient/requestor that no other refills are due, in the near future, with this provider at this time: Yes The last office visit in the department: 03/18/2024 Does the patient have a future office visit with this provider/department: No Requested Prescriptions Pending Prescriptions Disp Refills losartan (COZAAR) 100 mg tablet 90 tablet 0 Sig: Take 1 tablet by mouth once daily. LAILA Lai May 26, 2024 11:53 AM documented in this encounter [facility] 04-12-2024 Telephone encounter Note Radha from [facility] Sleep lab calling received order for patient sleep study but did not get copy of office notes, face sheet and insurance card copy be faxed to [phone]. Printed items and faxed as requested. [facility] 04-12-2024 Miscellaneous Notes Radha from [facility] Sleep lab calling received order for patient sleep study but did not get copy of office notes, face sheet and insurance card copy be faxed to [phone]. Printed items and faxed as requested. documented in this encounter [facility] 03-30-2024 Telephone encounter Note Phoned patient went over result, notes from Dr Saenz with understanding. Patient said she had colonoscopy brought in copy of it at her appt. Not found in scanned in documents as yet. She said was normal had hemorrhoids. Patient has made follow up with Avionics Electrical Engineer in early May. [facility] 03-30-2024 Miscellaneous Notes Phoned patient went over result, notes from Dr Saenz with understanding. Patient said she had colonoscopy brought in copy of it at her appt. Not found in scanned in documents as yet. She said was normal had hemorrhoids. Patient has made follow up with [employer]ics Electrical Engineer in early May. Please let her know that her immune levels by IG subclass are all normal Her A1c is slightly high into the prediabetes/IFG levels at 6.4%. needs to be working on cutting back on sugars and starches in her diet and need for exercise routinely. Her renal function is abnormal with creatinine at 1.61, GFR in the mid 30s. Needs to follow up with Nephrologsit Her vitamin D is too low at 30s. Needs to increase the vitamin D3 by extra 1000 international unit(s) a day with a meal. Her hemoglobin is slightly into the anemia range at 11.2. if she hasn't had a colonoscopy and EGD, she needs to pursue this because of the anemia and her iron levels are low normal range. Brendon Saenz DO Rest of these labs were received and are in scanning. PCP ordered labs for pt from recent OV. Office receiving outside labs from [facility]. Please review scanning. CBC, CMP, Free T3, TSH, T4 Free, Iron + TIBC, B-12 and Vit D 25. Awaiting lab results for A1c, IGG and Immunoglobulin A and Immunoglobulin M. Once received additional labs needed, route to PCP to advise on results. Routing to PCP pool to watch for the rest of the results. Swapna Goff MA documented in this encounter [facility] 03-30-2024 Telephone encounter Note Please let her know that her immune levels by IG subclass are all normal Her A1c is slightly high into the prediabetes/IFG levels at 6.4%. needs to be working on cutting back on sugars and starches in her diet and need for exercise routinely. Her renal function is abnormal with creatinine at 1.61, GFR in the mid 30s. Needs to follow up with Nephrologsit Her vitamin D is too low at 30s. Needs to increase the vitamin D3 by extra 1000 international unit(s) a day with a meal. Her hemoglobin is slightly into the anemia range at 11.2. if she hasn't had a colonoscopy and EGD, she needs to pursue this because of the anemia and her iron levels are low normal range. Brendon Saenz DO [facility] 03-24-2024 Telephone encounter Note Rest of these labs were received and are in scanning. [facility] 03-21-2024 Telephone encounter Note PCP ordered labs for pt from recent OV. Office receiving outside labs from [facility]. Please review scanning. CBC, CMP, Free T3, TSH, T4 Free, Iron + TIBC, B-12 and Vit D 25. Awaiting lab results for A1c, IGG and Immunoglobulin A and Immunoglobulin M. Once received additional labs needed, route to PCP to advise on results. Routing to PCP pool to watch for the rest of the results. Swapna Goff MA [facility] 03-18-2024 Note HNO ID: [id number] Author: BRENDON SAENZ DO Service: ? Author Type: Physician Type: Progress Notes Filed: 03/19/2024 11:31 Note Text: CC: Ioana Fletcher is a 53 year old female who presents to the office for physical HPI: Cough, started a few months ago, lasted 6 weeks of time. Was negative for covid 19 viral infection. The infection resolved and then she got a recent URI and this has now lasted for 2 weeks. She is taking MVI and vitamin C vitamin already. Unsure what is causing it. Feels like she is getting frequent recurrent illness and these illness are lasting a very long time each episode Extreme fatigue symptoms, was falling asleep typing. She isn't sleeping well at night though. No obvious history of narcolepsy or ANKIT in herself or in family member. Is concerned when driving on a highway for this feeling of wanting to nod off to sleep. She states that she can also fall asleep at work often just when she is working/typing. Has a fmhx of asthma in her brother, no personal history of asthma that she is aware of. 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 No new symptoms HTN, well controlled recently, no CP or palpitations or syncope or edema legs Mood, stable, taking remeron Hemorrhoids, external and internal, long standing, seen on recent colonoscopy. She is interested in prn use of a suppository to help with pain and bleeding that is intermittent. PAST MEDICAL HISTORY Diagnosis Date Anemia likely due to iron deficiency Anxiety Dermatitis, seborrheic HTN (hypertension) 11/23/2017 Hypoparathyroidism (HCC) Nasal polyps Dr. Sheth ENT, CT sinuses 11/20/12 Panic attacks Vitamin D deficiency PAST SURGICAL HISTORY Procedure Laterality Date ADENOIDECTOMY PRIMARY AGE 13/> OFFICE ENDOMETRIAL ABLATION 02/2017 Ela endometrial ablation TOOTH EXTRACTION Social History: Social History Tobacco Use Smoking status: Former Current packs/day: 0.00 Average packs/day: 0.5 packs/day for 12.0 years (6.0 ttl pk-yrs) Types: Cigarettes Start date: 05/04/1990 Quit date: 05/04/2002 Years since quittin.8 Smokeless tobacco: Never Vaping Use Vaping status: Never Used Substance Use Topics Alcohol use: No Drug use: No FAMILY HISTORY Problem Relation Age of Onset Diabetes Mother Hypertension Mother Lipids Mother Diabetes Brother Asthma Brother Diabetes Brother Current Outpatient prescriptions: hydrocortisone (ANUSOL-HC) 25 mg suppository 1 Suppository by RECTAL route two times a day as needed (hemorrhoids/rectal pain). doxycycline (VIBRA-TABS) 100 mg tablet Take 1 tablet by mouth two times a day for 10 days. losartan (COZAAR) 100 mg tablet Take 1 tablet by mouth once daily. triamcinolone acetonide (KENALOG) 0.1 % ointment Apply to affected area two times a day. For 10-14 days. labetalol (TRANDATE) 100 mg tablet Take 200 mg by mouth three times a day. gabapentin (NEURONTIN) 300 mg capsule Take 1 capsule by mouth three times a day as needed for up to 30 days. spironolactone (ALDACTONE) 50 mg tablet Take 1 tablet by mouth once daily. (Patient taking differently: Take 25 mg by mouth once daily.) NIFEdipine ER (PROCARDIA XL) 30 mg 24 hr tablet Take 1 tablet by mouth daily at bedtime. For blood pressure (Patient taking differently: Take 90 mg by mouth daily at bedtime. For blood pressure) calcitriol (ROCALTROL) 0.5 mcg capsule Take 0.5 mcg by mouth two times a day. desvenlafaxine ER (PRISTIQ) 100 mg 24 hr tablet Take 50 mg by mouth once daily. clonazePAM (KLONOPIN) 0.5 mg tablet Take 1 tablet by mouth once daily as needed for up to 30 days. calcium carbonate/vitamin D3 (CALCIUM 500 + D ORAL) Take 2 Each by mouth once daily. mirtazapine (REMERON) 15 mg tablet Take 30 mg by mouth daily at bedtime. Per Psych- Keyur Dubon, FADI hydrocortisone 2.5 % cream Apply 1 application to affected area daily at bedtime. Location: facial, avoid eyes/lips (Patient not taking: Reported on 07/17/2023) Allergies: ALLERGIES Allergen Reactions Latex Hives Penicillins Shortness of Breath Prednisone GI Upset, Other: See Comments [place] jittery Wellbutrin [Bupropi* Other: See Comments sweating ROS: See HPI PE: 03/18/24 1316 BP: 120/60 Pulse: 80 Resp: 20 Temp: 36.6 ?C (97.8 ?F) TempSrc: Left Tympanic Weight: 126 kg (277 lb 12.5 oz) Height: 164 cm (5' 4.57) Gen: AANDO, NAD, non-toxic appearing, Pleasant, cooperative,appears fatigued HEENT: NT/AC, PERRLA, EOMs intact b/l, nares clear and patent b/l, pharynx without erythema, exudate or lesions. MMM, Uvula midline. EACs without erythema or debris. TMs pearly [place] with intact landmarks b/l. Neck: supple, No cervical LAD, no thyromegaly, no carotid bruits CV: RRR, normal S1 and S2, no murmurs, no gallops, no rubs, Pulses 2+ and symmetric in UE and LE b/l Lungs: normal respiratory effort, CTA b/l, no wheezing or rhonchi (more content not included)... [facility] 03-18-2024 History of Present illness Narrative CC: Ioana Fletcher is a 53 year old female who presents to the office for physical HPI: Cough, started a few months ago, lasted 6 weeks of time. Was negative for covid 19 viral infection. The infection resolved and then she got a recent URI and this has now lasted for 2 weeks. She is taking MVI and vitamin C vitamin already. Unsure what is causing it. Feels like she is getting frequent recurrent illness and these illness are lasting a very long time each episode Extreme fatigue symptoms, was falling asleep typing. She isn't sleeping well at night though. No obvious history of narcolepsy or ANKIT in herself or in family member. Is concerned when driving on a highway for this feeling of wanting to nod off to sleep. She states that she can also fall asleep at work often just when she is working/typing. Has a fmhx of asthma in her brother, no personal history of asthma that she is aware of. 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 No new symptoms HTN, well controlled recently, no CP or palpitations or syncope or edema legs Mood, stable, taking remeron Hemorrhoids, external and internal, long standing, seen on recent colonoscopy. She is interested in prn use of a suppository to help with pain and bleeding that is intermittent. PAST MEDICAL HISTORY Diagnosis Date Anemia likely due to iron deficiency Anxiety Dermatitis, seborrheic HTN (hypertension) 11/23/2017 Hypoparathyroidism (HCC) Nasal polyps Dr. Sheth ENT, CT sinuses 11/20/12 Panic attacks Vitamin D deficiency PAST SURGICAL HISTORY Procedure Laterality Date ADENOIDECTOMY PRIMARY AGE 13/> OFFICE ENDOMETRIAL ABLATION 02/2017 Ela endometrial ablation TOOTH EXTRACTION Social History: Social History Tobacco Use Smoking status: Former Current packs/day: 0.00 Average packs/day: 0.5 packs/day for 12.0 years (6.0 ttl pk-yrs) Types: Cigarettes Start date: 05/04/1990 Quit date: 05/04/2002 Years since quittin.8 Smokeless tobacco: Never Vaping Use Vaping status: Never Used Substance Use Topics Alcohol use: No Drug use: No FAMILY HISTORY Problem Relation Age of Onset Diabetes Mother Hypertension Mother Lipids Mother Diabetes Brother Asthma Brother Diabetes Brother Current Outpatient prescriptions: hydrocortisone (ANUSOL-HC) 25 mg suppository 1 Suppository by RECTAL route two times a day as needed (hemorrhoids/rectal pain). doxycycline (VIBRA-TABS) 100 mg tablet Take 1 tablet by mouth two times a day for 10 days. losartan (COZAAR) 100 mg tablet Take 1 tablet by mouth once daily. triamcinolone acetonide (KENALOG) 0.1 % ointment Apply to affected area two times a day. For 10-14 days. labetalol (TRANDATE) 100 mg tablet Take 200 mg by mouth three times a day. gabapentin (NEURONTIN) 300 mg capsule Take 1 capsule by mouth three times a day as needed for up to 30 days. spironolactone (ALDACTONE) 50 mg tablet Take 1 tablet by mouth once daily. (Patient taking differently: Take 25 mg by mouth once daily.) NIFEdipine ER (PROCARDIA XL) 30 mg 24 hr tablet Take 1 tablet by mouth daily at bedtime. For blood pressure (Patient taking differently: Take 90 mg by mouth daily at bedtime. For blood pressure) calcitriol (ROCALTROL) 0.5 mcg capsule Take 0.5 mcg by mouth two times a day. desvenlafaxine ER (PRISTIQ) 100 mg 24 hr tablet Take 50 mg by mouth once daily. clonazePAM (KLONOPIN) 0.5 mg tablet Take 1 tablet by mouth once daily as needed for up to 30 days. calcium carbonate/vitamin D3 (CALCIUM 500 + D ORAL) Take 2 Each by mouth once daily. mirtazapine (REMERON) 15 mg tablet Take 30 mg by mouth daily at bedtime. Per Psych- Keyur Dubon CNP hydrocortisone 2.5 % cream Apply 1 application to affected area daily at bedtime. Location: facial, avoid eyes/lips (Patient not taking: Reported on 07/17/2023) Allergies: ALLERGIES Allergen Reactions Latex Hives Penicillins Shortness of Breath Prednisone GI Upset, Other: See Comments [place] jittery Wellbutrin [Bupropi* Other: See Comments sweating ROS: See HPI PE: 03/18/24 1316 BP: 120/60 Pulse: 80 Resp: 20 Temp: 36.6 C (97.8 F) TempSrc: Left Tympanic Weight: 126 kg (277 lb 12.5 oz) Height: 164 cm (5' 4.57) Gen: A&O, NAD, non-toxic appearing, Pleasant, cooperative,appears fatigued HEENT: NT/AC, PERRLA, EOMs intact b/l, nares clear and patent b/l, pharynx without erythema, exudate or lesions. MMM, Uvula midline. EACs without erythema or debris. TMs pearly [place] with intact landmarks b/l. Neck: supple, No cervical LAD, no thyromegaly, no carotid bruits CV: RRR, normal S1 and S2, no murmurs, no gallops, no rubs, Pulses 2+ and symmetric in UE and LE b/l Lungs: normal respiratory effort, CTA b/l, no wheezing or rhonchi or rales, coughing Abd: soft,obese, NT, ND, +BS, no hepatosplenomegaly MS: FROM all 4 extremities Neuro: CN II-XII intact b/l, strength 5/5 b/l UE and LE, DTRs 2/4 UE and LE, sensation intact. Skin: warm, dry, intact, No rashes or lesions on exposed skin. No edema, normal pulses ASSESSMENT/PLAN: 1. Well adult exam - ICD9: V70.0, ICD10: Z00.00 (primary diagnosis) - Counseled on healthy diet and regular exercise - Discussed need and benefit for weight loss. BMI 46.85 kg/(m^2) 2. Sleep disorder - ICD9: 780.50, ICD10: G47.9 Labs as ordered Need for follow up with sleep medicine specialist for testing for ANKIT vs. Sleep wake disorder as d/w her today - CONSULT TO SLEEP MEDICINE - ADULT - COMPLETE BLOOD COUNT AND DIFFERENTIAL - COMPREHENSIVE METABOLIC PANEL - THYROID STIMULATING HORMONE - T4 FREE/FREE THYROXINE - T3, FREE - VITAMIN D 25 HYDROXY - VITAMIN B12 3. 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 Sleep wake disorder as d/w her today - CONSULT TO SLEEP MEDICINE - ADULT 4. Fatigue, unspecified type - ICD9: 780.79, ICD10: R53.83 Labs as ordered Need for follow up with sleep medicine specialist for testing for ANKIT vs. Sleep wake disorder as d/w her today Unsure cause of symptoms - CONSULT TO SLEEP MEDICINE - ADULT - THYROID STIMULATING HORMONE - T4 FREE/FREE THYROXINE - T3, FREE - VITAMIN D 25 HYDROXY - VITAMIN B12 - HEMOGLOBIN A1C - IRON AND TIBC 5. Recurrent URI (upper respiratory infection) - ICD9: 465.9, ICD10: J06.9 - unsure if she may have asthma or immune deficiency? Testing as ordered and d/w her today - XR CHEST 2V FRONTAL/LAT - SPIROMETRY - BASELINE AND POST DILATOR - COMPLETE BLOOD COUNT AND DIFFERENTIAL - COMPREHENSIVE METABOLIC PANEL - IGG SUBCLASSES BLD - IMMUNOGLOBULIN M - IMMUNOGLOBULIN A 6. Hoarseness - ICD9: 784.42, ICD10: R49.0 - unsure if she may have asthma or immune deficiency? Testing as ordered and d/w her today - XR CHEST 2V FRONTAL/LAT - SPIROMETRY - BASELINE AND POST DILATOR - COMPLETE BLOOD COUNT AND DIFFERENTIAL - COMPREHENSIVE METABOLIC PANEL - IGG SUBCLASSES BLD - IMMUNOGLOBULIN M - IMMUNOGLOBULIN A 7. Bronchitis, mucopurulent recurrent (HCC) - ICD9: 491.1, ICD10: J41.1 - unsure if she may have asthma or immune deficiency? Testing as ordered and d/w her today - SPIROMETRY - BASELINE AND POST DILATOR 8. Mixed hyperlipidemia - ICD9: 272.2, ICD10: E78.2 - Control undetermined, due for labs - Counseled on healthy diet and regular exercise - Discussed need for and benefit of weight loss. BMI 46.85 kg/(m^2) 9. Vitamin B12 deficiency - ICD9: 266.2, ICD10: E53.8 Recheck labs as ordered 10. Stage 3a chronic kidney disease (HCC) - ICD9: 585.3, ICD10: N18.31 - eGFR: Stable - Follow up with kidney medicine 11. Hypertension, essential - ICD9: 401.9, ICD10: I10 - Controlled - Continue current medications - Recommend home blood pressure monitoring, to bring results to next visit - Encouraged sodium restriction, DASH or Mediterranean diet - Recommend regular aerobic exercise - Discussed need for and benefit of weight loss. BMI 46.85 kg/(m^2) 12. Fatty liver - ICD9: 571.8, ICD10: K76.0 Continue weight loss efforts and dietary changes Brendon Saenz DO To ER if develops chest pain, shortness of breath, or severe worsening of symptoms. Discussed risks, benefits, alternatives, and potential side effects of medications. Patient expressed understanding and agreed with the plan. Brendon Saenz DO [address] [place] [address] documented in this encounter [facility] 02-22-2024 Telephone encounter Note Prescription Refill Information The patient has been identified by name and date of : Yes Caregiver verified no other encounters exist for this prescription request: Yes Caregiver confirmed with patient/requestor that no other refills are due, in the near future, with this provider at this time: Yes The last office visit in the department: 09/15/2023 Does the patient have a future office visit with this provider/department: Yes Requested Prescriptions Pending Prescriptions Disp Refills losartan (COZAAR) 100 mg tablet 90 tablet 0 Sig: Take 1 tablet by mouth once daily. Christie Petty LPN February 22, 2024 11:52 AM [facility] 02-22-2024 Miscellaneous Notes Prescription Refill Information The patient has been identified by name and date of : Yes Caregiver verified no other encounters exist for this prescription request: Yes Caregiver confirmed with patient/requestor that no other refills are due, in the near future, with this provider at this time: Yes The last office visit in the department: 09/15/2023 Does the patient have a future office visit with this provider/department: Yes Requested Prescriptions Pending Prescriptions Disp Refills losartan (COZAAR) 100 mg tablet 90 tablet 0 Sig: Take 1 tablet by mouth once daily. Christie Petty LPN February 22, 2024 11:52 AM documented in this encounter [facility] 11-23-2023 Telephone encounter Note Turned this into a phone note as pcp prefers. Will close this one now. [facility] 11-23-2023 Miscellaneous Notes Turned this into a phone note as pcp prefers. Will close this one now. documented in this encounter [facility] 11-23-[address] Saenz , I have started taking Losartan 100 mg 1x daily again and made Dr Arredondo aware of this . You had previously prescribed this . Can you please send a refill to [facility] in [place] ? Thank you. Ioana [facility] 11-23-[address] Saenz , I have started taking Losartan 100 mg 1x daily again and made Dr Arredondo aware of this . You had previously prescribed this . Can you please send a refill to [facility] in [place] ? Thank you. Ioana documented in this encounter [facility] 11-04-2023 Telephone encounter Note Spoke with pt gave information provided. Pt voices understanding. [facility] 11-04-2023 Miscellaneous Notes Spoke with pt gave information provided. Pt voices understanding. ECHO shows mild left ventricle hypertrophy which is likely due to recent uncontrolled blood pressures. Ejection fracture (pump of heart) is normal. No big concerns. Thank you, Cady Rizzo APRN.PERMIT COORDINATOR Echo ordered by Dr. Saenz. Pt completed at [facility]. Results placed on [employer]'s inbox for review. Roxann Thomas MA documented in this encounter [facility] 11-04-2023 Telephone encounter Note ECHO shows mild left ventricle hypertrophy which is likely due to recent uncontrolled blood pressures. Ejection fracture (pump of heart) is normal. No big concerns. Thank you, Cady Rizzo APRN.PERMIT COORDINATOR [facility] Work Phone: 11-02-2023 Telephone encounter Note Echo ordered by Dr. Saenz. Pt completed at [facility]. Results placed on [employer] inbox for review. Roxann Thomas MA [facility] 09-16-2023 History of Present illness Narrative CC: Ioana Fletcher is a 52 year old female who presents to the office for 6 months follow up HPI: At last OFFICE VISIT in Dec 2022 Mood, managed currently by Dr. Bellamy Psychiatrist at [facility]. She has been changed to Pristiq [...] high CRP levels. Otherwise normal. Hasn't seen Tap Grinder yet. Hyperparathyroidism, CKD, sees Dr. Amaya for Nephrology and Dr. Benítez for Endocrinology Elevated BLOOD PRESSURE, taking losartan as prescribed. Has noticed it to be 140s/90s at home when checking BLOOD PRESSURE as well. No CP or dyspnea or dizziness/LH or edema. Scalp itching, has tried ketoconazole shampoo and Ttree oil and other products OTC without relief At follow up 03/17/2023 HTN, continues to have some mildly elevated BLOOD PRESSURE, is taking her 100 mg of losartan and 30 mg of diltiazem as well as 25 mg of spironolactone. Is asymptomatic- no CP or dyspnea or dizziness/LH. CKD, hyperparathyroidism, takinc her Calcitriol medication. Has follow up with DR. Amaya for Avionics Electrical Engineer in Apr. IFG, a1c in July 2022 was at 5.8%. has seen Respiratory Tech Dr. Benítez for this last lab check Mood, seeing Psychiatrist Dr. Bellamy, feels it is stable. Does feel like the pristique medication is causing her to have some constipation/bloating but she feels this is managed and mild. Scalp psoriasis, stable. Recently had kenalog injection due to flare up per Dr. David Zelaya facility assistant- doesn't feel that this benefitted her much. Has a follow up tomorrow. Currently HTN, continues to have some elevated BLOOD PRESSURE, is taking her medications as prescribed by Dr. Amaya. Is asymptomatic- no CP or dyspnea or dizziness/LH. CKD, hyperparathyroidism, taking her Calcitriol medication. Has follow up with DR. Amaya for Avionics Electrical Engineer in Apr. Also seeing Dr. Benítez Respiratory Tech IFG, has been stable. has seen Respiratory Tech Dr. Benítez for this last lab check Mood, seeing Psychiatrist Dr. Bellamy, feels it is stable. Does feel like the pristique medication is causing her to have some constipation/bloating but she feels this is managed and mild. PAST MEDICAL HISTORY Diagnosis Date Anemia likely due to iron deficiency Anxiety Dermatitis, seborrheic HTN (hypertension) 11/23/2017 Hypoparathyroidism (HCC) Nasal polyps Dr. Sheth ENT, CT sinuses 11/20/12 Panic attacks Vitamin D deficiency PAST SURGICAL HISTORY Procedure Laterality Date ADENOIDECTOMY PRIMARY AGE 13/> OFFICE ENDOMETRIAL ABLATION 02/2017 Ela endometrial ablation TOOTH EXTRACTION Current Outpatient Medications Medication Sig triamcinolone acetonide (KENALOG) 0.1 % ointment Apply to affected area two times a day. For 10-14 days. labetalol (TRANDATE) 100 mg tablet Take 200 mg by mouth three times a day. gabapentin (NEURONTIN) 300 mg capsule Take 1 capsule by mouth three times a day as needed for up to 30 days. spironolactone (ALDACTONE) 50 mg tablet Take 1 tablet by mouth once daily. (Patient taking differently: Take 25 mg by mouth once daily.) NIFEdipine ER (PROCARDIA XL) 30 mg 24 hr tablet Take 1 tablet by mouth daily at bedtime. For blood pressure (Patient taking differently: Take 90 mg by mouth daily at bedtime. For blood pressure) calcitriol (ROCALTROL) 0.5 mcg capsule Take 0.5 mcg by mouth two times a day. desvenlafaxine ER (PRISTIQ) 100 mg 24 hr tablet Take 50 mg by mouth once daily. clonazePAM (KLONOPIN) 0.5 mg tablet Take 1 tablet by mouth once daily as needed for up to 30 days. calcium carbonate/vitamin D3 (CALCIUM 500 + D ORAL) Take 2 Each by mouth once daily. mirtazapine (REMERON) 15 mg tablet Take 30 mg by mouth daily at bedtime. Per Psych- Keyur Dubon, FADI hydrocortisone 2.5 % cream Apply 1 application to affected area daily at bedtime. Location: facial, avoid eyes/lips (Patient not taking: Reported on 07/17/2023) No current facility-administered medications for this visit. ALLERGIES Allergen Reactions Latex Hives Penicillins Shortness of Breath Prednisone GI Upset, Other: See Comments [place] jittery Wellbutrin [Bupropi* Other: See Comments sweating Social History Tobacco Use Smoking status: Former Packs/day: 0.50 Years: 12.00 Additional pack years: 0.00 Total pack years: 6.00 Types: Cigarettes Quit date: 05/04/2002 Years since quittin.3 Smokeless tobacco: Never Vaping Use Vaping Use: Never used Substance Use Topics Alcohol use: No Drug use: No ROS See HPI. PE: BP 146/94 Pulse 76 Temp (Src) 97.5 (Left Tympanic) Resp 16 Wt 273 lb (123.8kg) LMP 09/02/2023 Gen: A&OX3, NAD, non-toxic appearing HEENT: PERRLA, [...] edema legs, normal peripheral pulses ASSESSMENT/PLAN: 1. Hypertension, essential - ICD9: 401.9, ICD10: I10 (primary diagnosis) - Worsening control - Continue current medications - Recommend home blood pressure monitoring, to bring results to next visit - Encouraged sodium restriction, DASH or Mediterranean diet - Recommend regular aerobic exercise - Discussed need for and benefit of weight loss. BMI 44.94 kg/(m^2) - ECHO - PERFLUTREN LIPID MICROSPHERES 1.1 MG/ML INJECTION IN NS 10 ML - SODIUM CHLORIDE 0.9 % (FLUSH) INJECTION SYRINGE - US RENAL ARTERY [facility] - US CAROTID ARTERIES [facility] 2. Encounter for screening mammogram for malignant neoplasm of breast - ICD9: V76.12, ICD10: Z12.31 - Encouraged monthly BSE - Increase calcium intake with supplements or by diet (goal of 7298-0097 mg/day - SARAH SCREENING W HETAL 3. Uncontrolled hypertension - ICD9: 401.9, ICD10: I10 - Uncontrolled - Recommend home blood pressure monitoring, to bring results to next visit - Encouraged sodium restriction, DASH or Mediterranean diet - Recommend regular aerobic exercise - Discussed need for and benefit of weight loss. BMI 44.94 kg/(m^2) - ECHO - PERFLUTREN LIPID MICROSPHERES 1.1 MG/ML INJECTION IN NS 10 ML - SODIUM CHLORIDE 0.9 % (FLUSH) INJECTION SYRINGE - US RENAL ARTERY [facility] - US CAROTID ARTERIES [facility] 4. Vitamin B12 deficiency - ICD9: 266.2, ICD10: E53.8 Continue supplement 5. Mixed hyperlipidemia - ICD9: 272.2, ICD10: E78.2 - Controlled - Counseled on healthy diet and regular exercise - Discussed need for and benefit of weight loss. BMI 44.94 kg/(m^2) 6. Fatty liver - ICD9: 571.8, ICD10: K76.0 Need for weight loss and low animal fat diet. 7. Stage 3a chronic kidney disease (HCC) - ICD9: 585.3, ICD10: N18.31 - eGFR: Worsening - Counseled on avoiding NSAIDs, adequate hydration - Counseled on low sodium diet - Follow up with kidney medicine 8. Situational anxiety - ICD9: 300.09, ICD10: F41.8 Stable, f/u with Dr. Bellamy for Psychiatrist 9. Fatigue, unspecified type - ICD9: 780.79, ICD10: R53.83 See above, multifactorial Brendon Saenz DO Return if no improvement. Follow up with Brendon Saenz DO. To ER if develops chest pain, shortness of breath. Discussed risks, benefits, alternatives, and potential side effects of medications. Patient/Guardian expressed understanding and agreed with the plan. See patient instructions. Brendon Saenz DO [address] [place] [address] documented in this encounter [facility] 07-24-2023 Miscellaneous Notes Thank you for the update. Mitesh Leroy APRN.CNP Please see update from patient Abigail Orr MA Her cervical neck xray shows some mild degenerative changes. Her EMG shows moderate carpal tunnel syndrome in both of her arms. How is she feeling? Any improvement? Mitesh Leroy APRN.FADI documented in this encounter [facility] 07-22-2023 Miscellaneous Notes Spoke with pt and information listed below given. Pt verbalizes understanding. Angie Brown LPN Please let her know her labs and kidney function are stable. Mitesh Leroy APRN.FADI Pt had blood work done at [facility], results below. View External Labs - Chemistry [ID [id number]] View External Labs - Chemistry [ID [id number]] Irene Pisano MA documented in this encounter [facility] 07-17-2023 History of Present illness Narrative Chief Complaint Patient presents with: left hand numbness, tingling, pain HPI Ioana Fletcher is a 52 year old female who presents here today for Above Complaints. Currently: Starting about 4-5 weeks ago started having pain and numbness, tingling in her left hand. Suspected this was carpal tunnel and wore a splint which helped initially, but has now worsened exponentially. Is now having a burning pain in her left pain, cannot close her hand to a fist. Fingers are swollen. Occasionally pain will shoot up her arm and rates a 9/10 at that time. Standing relieves pain. Neck does not hurt, no new activities or injury. Was recently hospitalized for acute kidney failure. Is seeing her machine room engineer in August. Follows with the combining machine operator that she saw in the hospital. He has been calling her, hasn't seen her in his office. Past medical history, appointments, medications, allergies reviewed. [...] Breath Prednisone GI Upset, Other: See Comments [place] jittery Wellbutrin [Bupropi* Other: See Comments sweating Current Medications Current Outpatient Medications on File Prior to Visit Medication Sig labetalol (TRANDATE) 100 mg tablet Take 1 tablet by mouth three times a day. spironolactone (ALDACTONE) 50 mg tablet Take 1 tablet by mouth once daily. (Patient taking differently: Take 25 mg by mouth once daily.) NIFEdipine ER (PROCARDIA XL) 30 mg 24 hr tablet Take 1 tablet by mouth daily at bedtime. For blood pressure calcitriol (ROCALTROL) 0.5 mcg capsule Take 0.5 mcg by mouth two times a day. desvenlafaxine ER (PRISTIQ) 100 mg 24 hr tablet triamcinolone acetonide (KENALOG) 0.1 % ointment Apply to affected area twice daily. For 10-14 days. calcium carbonate/vitamin D3 (CALCIUM 500 + D ORAL) Take 2 Each by mouth once daily. mirtazapine (REMERON) 15 mg tablet Take 30 mg by mouth daily at bedtime. Per Psych- Keyur Dubon, FADI losartan (COZAAR) 100 mg tablet Take 1 tablet by mouth once daily. (Patient not taking: Reported on 07/17/2023) meloxicam (MOBIC) 15 mg tablet Take 1 tablet by mouth once daily. As needed for joint pain, Take with food. (Patient not taking: Reported on 07/17/2023) Clobetasol Propionate (TEMOVATE) 0.05 % external solution Apply 1 application to affected area twice daily. On scalp (Patient not taking: Reported on 07/17/2023) clonazePAM (KLONOPIN) 0.5 mg tablet Take 1 tablet by mouth once daily as needed for up to 30 days. cyclobenzaprine (FLEXERIL) 10 mg tablet Take 1 tablet by mouth three times daily as needed for Muscle Spasm. (Patient not taking: Reported on 07/17/2023) ketoconazole (NIZORAL) 2 % cream Apply 1 application to affected area daily before breakfast. (Patient not taking: Reported on 07/17/2023) hydrocortisone 2.5 % cream Apply 1 application to affected area daily at bedtime. Location: facial, avoid eyes/lips (Patient not taking: Reported on 07/17/2023) No current facility-administered medications on file prior to visit. Social History Social History Tobacco Use Smoking status: Former Packs/day: 0.50 Years: 12.00 Additional pack years: 0.00 Total pack years: 6.00 Types: Cigarettes Quit date: 05/04/2002 Years since quittin.2 Smokeless tobacco: Never Vaping Use Vaping Use: Never used Substance Use Topics Alcohol use: No Drug use: No Review of Symptoms REVIEW OF SYSTEMS See HPI, otherwise negative EXAM: BP 130/82 Pulse 74 Resp 16 Wt 127 kg (280 lb) LMP 08/09/2022 SpO2 96% BMI 46.09 kg/m General Appearance: Well appearing, alert, in no acute distress, well-hydrated, well nourished.. Neck: Supple, no adenopathy; thyroid symmetric, normal size, no bruits. Back:no pain to palpation of vertebrae, good flexion and extension, good range of motion, no muscle tenderness, motor and sensory appear to be normal Lungs: Lungs clear to auscultation. No wheezing, rhonchi, rales.. Heart: RRR without murmur, gallop, or rubs. No ectopy. Extremities: 2+ nonpitting edema to left hand and bilateral ankles and feet Musculoskeletal: see extremities. Left hand weaker than right., unable to make a full fist due to swelloing. Peripheral Pulses: Normal. Neurologic: Gait normal. Reflexes normal and symmetric. Sensation grossly intact.. Psychiatric: pleasant, cooperative. Health Maintenance List Hepatitis C Screening Never done HIV Screening Never done BP Controlled (<130/80) Never done Hepatitis B Vaccine(1 of 3 - 19+ 3-dose series) Never done Colorectal Cancer Screening Never done Serum Creatinine due on 01/01/2021 Shingrix Vaccine(1 of 2) Never done Diabetes Screening due on 01/01/2023 DTaP,Tdap,Td Vaccine(3 - Td or Tdap) due on 01/12/2023 Mammogram Screening due on 09/24/2023 Covid-19 Vaccine(3 - 2022- season) due on 03/17/2024 Lipid Screening due on 10/13/2023 Annual PCP Team Chronic Disease Visit due on 03/17/2024 Pap Testing due on 10/04/2027 HPV Testing due on 10/04/2027 Influenza Vaccine Completed Data reviewed Previous records, office notes ASSESSMENT/PLAN: 1. Weight gain - ICD9: 783.1, ICD10: R63.5 (primary diagnosis) Suspect r/t fluid. - COMP METABOLIC PANEL - NT PRO BNP - XR CERV OTHER 4V AP/LAT/OBL - EMG(NEURO/NI) - GABAPENTIN 300 MG CAPSULE 2. Numbness and tingling - ICD9: 782.0, ICD10: R20.0, R20.2 - COMP METABOLIC PANEL - NT PRO BNP - XR CERV OTHER 4V AP/LAT/OBL - EMG(NEURO/NI) - GABAPENTIN 300 MG CAPSULE 3. Arm edema - ICD9: 782.3, ICD10: R60.0 - COMP METABOLIC PANEL - NT PRO BNP - XR CERV OTHER 4V AP/LAT/OBL - EMG(NEURO/NI) - GABAPENTIN 300 MG CAPSULE 4. Decreased GFR - ICD9: 794.4, ICD10: R94.4 - COMP METABOLIC PANEL - NT PRO BNP - XR CERV OTHER 4V AP/LAT/OBL - EMG(NEURO/NI) - GABAPENTIN 300 MG CAPSULE 5. Hypertension, essential - ICD9: 401.9, ICD10: I10 - COMP METABOLIC PANEL - NT PRO BNP - XR CERV OTHER 4V AP/LAT/OBL - EMG(NEURO/NI) - GABAPENTIN 300 MG CAPSULE Mitesh Leroy APRN.PERMIT COORDINATOR documented in this encounter [facility] 03-17-2023 History of Present illness Narrative CC: Ioana Fletcher is a 52 year old female who presents to the office for follow up HPI: At last OFFICE VISIT in Dec 2022 Mood, managed currently by Dr. Bellamy Psychiatrist at [facility]. She has been changed to Pristiq [...] high CRP levels. Otherwise normal. Hasn't seen Tap Grinder yet. Hyperparathyroidism, CKD, sees Dr. Amaya for [...] Has follow up with DR. Amaya for Avionics Electrical Engineer in Apr. IFG, a1c in July 2022 was at 5.8%. has seen Respiratory Tech Dr. Benítez for this last lab check Mood, seeing Psychiatrist Dr. Bellamy, feels it is stable. Does feel like the pristique medication is causing her to have some constipation/bloating but she feels this is managed and mild. Scalp psoriasis, stable. Recently had kenalog injection due to flare up per Dr. David Zelaya facility assistant- doesn't feel that this benefitted her much. [...] daily at bedtime. Per Psych- Keyur Dubon, PERMIT COORDINATOR ketoconazole (NIZORAL) 2 % cream Apply 1 [...] Breath Prednisone GI Upset, Other: See Comments [place] jittery Wellbutrin [Bupropi* Other: See Comments sweating [...] Stable, f/u with Dr. Bellamy Psychiatrist Brendon Saenz DO Return if no improvement. Follow up with Brendon Saenz DO. To ER if develops chest pain, shortness of breath. Discussed risks, benefits, alternatives, and potential side effects of medications. Patient/Guardian expressed understanding and agreed with the plan. See patient instructions. rBendon Saenz DO [address] [place] [address] documented in this encounter [facility] 02-02-2023 Miscellaneous Notes Last office visit: 12/09/22 F/u scheduled: 03/17/23 Irene Pisano Ma documented in this encounter [facility] 01-15-2023 Miscellaneous Notes Referral, OV, Demo, med list, faxed to Dr. David Zelaya's office. Pt notified via [employer]. Irene Pisano Ma Consult placed. Please fax. Please also include office note from 12/09/[address] Saenz. Let pt know once completed. Thank you, Cady Rizzo APRN.FADI documented in this encounter [facility] 12-10-2022 History of Present illness Narrative CC: Ioana Fletcher is a 52 year old female who [...] and panic symptoms, has been seeing Psychiatrist MECHANICAL ENGINEERING DRAFTSPERSON Jorden Dubon at [facility] in the past. Her MECHANICAL ENGINEERING DRAFTSPERSON moved to different location so now has recently Had medication change from Zoloft to Pristiq in Jun by Dr. Bellamy Psychiatrist. Doesn't know if this is affecting her symptoms above. Currently Mood, managed currently by Dr. Bellamy Psychiatrist at [facility]. She has been changed to Pristiq [...] high CRP levels. Otherwise normal. Hasn't seen Tap Grinder yet. Hyperparathyroidism, CKD, sees Dr. Amaya for [...] mouth daily at bedtime. Per Psych- Keyur Dubno, FADI ketoconazole (NIZORAL) 2 % cream Apply [...] Breath Prednisone GI Upset, Other: See Comments [place] jittery Wellbutrin [Bupropi* Other: See Comments sweating ROS: See HPI PE: 12/09/22 1415 BP: 146/94 Pulse: 80 Resp: 20 Temp: 37.1 C (98.7 F) TempSrc: Left Tympanic Weight: 127 kg (280 lb) Height: 166 cm (5' 5.35) Gen: A&O, NAD, non-toxic appearing, Pleasant, cooperative [...] diet of 1000 mg/day for under 50, 4343-9852 mg/day for 50+ - Discussed need and [...] ICD10: M79.10 Mildly high CRP, consider seeing Tap Grinder if worsening, start on only prn use [...] ICD10: E20.9 - f/u with Michael Benítez Respiratory Tech 6. Fatty liver - ICD9: 571.8, ICD10: [...] L40.9 - rx as below, consider seeing Cardiac Cath Lab Radiology Technologist if worsens - CLOBETASOL 0.05 % SCALP SOLUTION Brendon Saenz DO To ER if develops chest pain, shortness of breath, or severe worsening of symptoms. Discussed risks, benefits, alternatives, and potential side effects of medications. Patient expressed understanding and agreed with the plan. Brendon Saenz DO [address] [place] [address] documented in this encounter [facility] 10-27-2022 Miscellaneous Notes Daniel--09/15/22 Nov--12/09/22 Last refill--08/04/22 90 with 0 refills Last labs--09/08/22 documented in this encounter [facility] 10-03-2022 Instructions Pedro Aggarwal MD - 10/03/2022 3:36 PM EDT Minimizing [...] scratching at night. documented in this encounter [facility] 10-03-2022 History of Present illness Narrative Grade Checker offered: Patient declines. Ioana is a 51 year old who presents [...] L2 SAB0 IAB0 Ectopic0 Multiple0 Live Births0 Cut Off Operator Scorer History LMP: 08/09/2022, Ablation Age at Menarche: Age at First : Age at Menopause: Cut Off Operator Scorer History Comments: Sexual Activity: Not Currently; No [...] a sebaceous cyst, normal [place]th[place]'s glands, urethra, [place]'s glands, no vulvar lesions, no cervical lesions, good vaginal support, physiologic discharge present, normal appearing perineal body and perianal region BIMANUAL: uterus normal size, shape and consistency, no adnexal masses, and non-tender RECTOVAGINAL: deferred. NEURO: alert and oriented x3,exam grossly non-focal EXTREMITIES: normal ASSESSMENT/PLAN: 1) Health maintenance: Pap done with HPV. Mammogram up to date (gets at [facility]) Nutrition, exercise and routine health maintenance [...] use warm compresses & call if enlarges Pedro Aggarwal MD documented in this encounter [facility] 07-04-2022 Miscellaneous Notes Noted. Thank you, Cady Rizzo APRN.PERMIT COORDINATOR Pt called and is notified of providers results and instructions. Pt voices understanding. Faxed labs over to [facility] Lab at [phone]. Pts A1C was 5.8 and PTH was 10. Mary Blair RN Left message for patient to return call Looks like rest of labs are scanned in chart. Abigail Orr Please call patient and let her know that I got lab work results back from [facility]. TSH is elevated at 5.25. I know patient follows with endocrinology -- please make machine room engineer aware of this. I know pt has hx of Acute kidney injury while in the hospital this past summer -- BUN and CR are slightly elevated. GFR is very slightly low at 59. I would like pt to increase fluids and repeat this lab work in 2-4 weeks to recheck this status. I know she does not need to follow with combining machine operator anymore so I just want to double check this. Cholesterol and triglycerides are also slightly elevated -- improving diet to include more green veggies and less fried, fatty foods will help. Lean protein is better than red meat. Limit red meat x 2-3x per week. I don't see hgA1c or PTH lab results that were ordered. Please check on this. Thank you, Cady Rizzo APRN.PERMIT COORDINATOR documented in this encounter [facility] 07-03-2022 History of Present illness Narrative Please see ordered labs: Scan on 07/03/2022 10:17 AM by External Provider: Miscellaneous Lab Scan on 07/03/2022 10:37 AM by External Provider: Miscellaneous Lab Alla Reyna LPN documented in this encounter [facility] 05-09-2022 Miscellaneous Notes Labs faxed to [facility] per pt request. Notified via [employer]. Irene Pisano Ma documented in this encounter [facility] 05-08-2022 History of Present illness Narrative Chief Complaint Patient presents with: Refill Request: Medication refill for klonipin HPI Ioana Fletcher is a 51 year old female who presents here today for Above Complaints.. Ioana is an established patient of Dr. Saenz, and myself. Concerns today.. Anxiety -- Zoloft 125 mg daily and Klonopin 0.5 mg prn. Taking Klonopin mostly every day. Scheduled to see psychiatrist this month at [place] where she works. Old psychiatrist left and [...] for this. Has been stable without concerns. Avionics Electrical Engineer said she does not need to come [...] Breath Prednisone GI Upset, Other: See Comments [place] jittery Wellbutrin [Bupropi* Other: See Comments sweating [...] daily at bedtime. Per Psych- Keyur Dubon, AFDI ketoconazole (NIZORAL) 2 % cream Apply 1 [...] No suspicious activity was identified. 05/08/2022 by Cady Amaro APRN.PERMIT COORDINATOR 2. Hypertension, essential - ICD9: 401.9, ICD10: [...] symptoms occur. Patient agreeable to treatment plan. Cady Amaro APRN.FADI [address] [place] [address] documented in this encounter [facility] 05-07-2022 Miscellaneous Notes Called pt gave information provided. She voices understanding. Appt was made. Needs appointment to refill Klonopin. Has not been seen in > 6 months. Please assist in scheduling. Thank you, Cady Amaro APRN.FADI PDMP website checked and validated. All prescriptions have been APPROPRIATELY filled. No suspicious activity was identified. 05/07/2022 by Cady Amaro APRN.CNP The following approved medication requests have been transmitted electronically. Requested Prescriptions Signed Prescriptions Disp Refills losartan (COZAAR) 100 mg tablet 90 tablet 0 Sig: Take 1 tablet by mouth once daily. Authorizing Provider: CADY AMARO Refused Prescriptions Disp Refills clonazePAM (KLONOPIN) 0.5 mg tablet 30 tablet 0 Sig: Take 1 tablet by mouth once daily as needed for up to 30 days. Refused By: CADY AMARO Reason for Refusal: Patient needs appointment Cady Amaro APRN.CNP Patient has been identified by name [...] Anu Vanegas LPN documented in this encounter [facility] 04-10-2022 Miscellaneous Notes PDMP website checked and validated. All prescriptions have been APPROPRIATELY filled. No suspicious activity was identified. 04/10/2022 by Cady Amaro APRN.FADI The following approved medication requests have been transmitted electronically. Requested Prescriptions Signed Prescriptions Disp Refills clonazePAM (KLONOPIN) 0.5 mg tablet 30 tablet 0 Sig: Take 1 tablet by mouth once daily as needed for up to 30 days. Authorizing Provider: CADY AMARO APRN.CNP Patient is calling in regards to [...] Keira Treadwell LPN documented in this encounter [facility] 03-05-2022 Miscellaneous Notes The following approved medication requests have been transmitted electronically. Requested Prescriptions Refused Prescriptions Disp Refills clonazePAM (KLONOPIN) 0.5 mg tablet 30 tablet 0 Sig: Take 1 tablet by mouth once daily as needed for up to 30 days. Refused By: CADY AMARO Reason for Refusal: Request already responded to by other means (for example, phone, fax) Cady Amaro APRN.CNP Patient phones requesting refills as follows: Requested Prescriptions Pending Prescriptions Disp Refills clonazePAM (KLONOPIN) 0.5 mg tablet 30 tablet 0 Sig: Take 1 tablet by mouth once daily as needed for up to 30 days. DANIEL-10/25/21 Labs-01/24/22 NOV-none med filled 01/30/22 Please review and advise. Keira Treadwell LPN documented in this encounter [facility] 03-05-2022 Miscellaneous Notes PDMP website checked and validated. All prescriptions have been APPROPRIATELY filled. No suspicious activity was identified. 03/05/2022 by Cady Amaro APRN.CNP The following approved medication requests have been transmitted electronically. Requested Prescriptions Signed Prescriptions Disp Refills clonazePAM (KLONOPIN) 0.5 mg tablet 30 tablet 0 Sig: Take 1 tablet by mouth once daily as needed for up to 30 days. Authorizing Provider: CADY AMARO APRN.CNP Patient has been identified by name [...] Christie Petty LPN documented in this encounter [facility] 02-03-2022 Miscellaneous Notes DANIEL--10/25/21 NOV--NOT SCHEDULED LAST REFILL--11/06/21 90 WITH 0 REFILLS LAST LABS--01/24/22 documented in this encounter [facility] 01-30-2022 Miscellaneous Notes PDMP website checked and validated. All prescriptions have been APPROPRIATELY filled. No suspicious activity was identified. 01/30/2022 by Cady Amaro APRN.PERMIT COORDINATOR The following approved medication requests have been transmitted electronically. Requested Prescriptions Signed Prescriptions Disp Refills clonazePAM (KLONOPIN) 0.5 mg tablet 30 tablet 0 Sig: Take 1 tablet by mouth once daily as needed for up to 30 days. Authorizing Provider: CADY AMARO APRN.PERMIT COORDINATOR Patient phones requesting refills as follows: Requested Prescriptions Pending Prescriptions Disp Refills clonazePAM (KLONOPIN) 0.5 mg tablet 30 tablet 0 Sig: Take 1 tablet by mouth once daily as needed for up to 30 days. DANIEL-10/25/21 Labs-01/24/22 NOV-none med filled 12/28/21 Please review and advise. Keira Treadwell LPN documented in this encounter [facility] 12-28-2021 Miscellaneous Notes The following approved medication requests have been transmitted electronically. Requested Prescriptions Signed Prescriptions Disp Refills clonazePAM (KLONOPIN) 0.5 mg tablet 30 tablet 0 Sig: Take 1 tablet by mouth once daily as needed for up to 30 days. Authorizing Provider: MITESH LEROY APRN.CNP PDM website checked and validated. All prescriptions have been APPROPRIATELY filled. No suspicious activity was identified. 12/28/2021 by Mitesh Leroy CNP. Patient phones requesting refills as follows: Requested Prescriptions Pending Prescriptions Disp Refills clonazePAM (KLONOPIN) 0.5 mg tablet 30 tablet 0 Sig: Take 1 tablet by mouth once daily as needed for up to 30 days. DANIEL-10/25/21 Labs-11/28/21 NOV-none med filled 11/25/21 Please review and advise. Keira Treadwell LPN documented in this encounter [facility] 11-25-2021 Miscellaneous Notes The following approved medication requests have been transmitted electronically. Signed Prescriptions Disp Refills clonazePAM (KLONOPIN) 0.5 mg tablet 30 tablet 0 Sig: Take 1 tablet by mouth once daily as needed for up to 30 days. WILLIAM Class: C-IV SUSY: No Authorizing Provider: MITESH LEROY APRN.CNP [facility] website checked and validated. All prescriptions have been APPROPRIATELY filled. No suspicious activity was identified. 11/25/2021 by Mitesh Leroy CNP. Patient phones requesting refills as follows: Pending Prescriptions Disp Refills CLONAZEPAM 0.5 MG TABLET 30 tablet 0 Sig: Take 1 tablet by mouth once daily as needed for up to 30 days. WILLIAM Class: C-IV SUSY: No DANIEL-10/25/21 Labs-11/05/21 NOV-none med filled 10/25/21 ends 11/24/21 Please review and advise. Keira Treadwell LPN documented in this encounter [facility] 11-22-2021 Miscellaneous Notes Patient calls and [...] increased dosage. New order placed. Thank you, Cady Amaro APRN.PERMIT COORDINATOR Spoke with pt she states she went [...] blood work results from Thursday done at [facility]. Kidney function continues to improve and is almost back within normal range. Lipid panel is elevated with an LDL of 161 and total cholesterol of 252. Please ask patient if she is taking the 10 mg Lipitor routinely. If so, I recommend increasing this dosage to 20 mg daily and repeat lipid panel in 3 months. Rx sent to [facility] if pt agreeable. May need to fax blood work to [facility] -- ask pt. The following approved medication requests have been transmitted electronically. Signed Prescriptions Disp Refills atorvastatin (LIPITOR) 20 mg tablet 90 tablet 0 Sig: Take 1 tablet by mouth once daily. For cholesterol. Authorizing Provider: CADY AMARO APRN.CNP documented in this encounter [facility] 11-06-2021 Miscellaneous Notes Refilled in prior encounter. Cady Amaro APRN.CNP The following approved medication requests have been transmitted electronically. Refused Prescriptions Disp Refills losartan (COZAAR) 100 mg tablet 90 tablet 0 Sig: Take 1 tablet by mouth once daily. SUSY: No Refused By: CADY AMARO Reason for Refusal: Request already responded to by other means (for example, phone, fax) Cady Amaro APRN.FADI daniel-- 10/25/21 Next-- Nothing scheduled Last refill-- 07/29/21 90 With 0 refills Last labs--10/25/21 documented in this encounter [facility] 11-06-2021 Miscellaneous Notes Pt called in [...] Keira Treadwell LPN documented in this encounter [facility] 10-25-2021 Nurse Note All labs were faxed to [facility] as requested. documented in this encounter [facility] 10-25-2021 Instructions Cady Amaro APRN.PERMIT COORDINATOR - 10/25/2021 2:40 PM EDT Start taking amlodpine 1/2 tablet x 2 weeks -- record BP daily and let me know via mychart how BP readings are and how edema is after 2 weeks. Get blood work done in 1 month to recheck thyroid and kidney function levels. Recheck lipid panel in 3 months to recheck cholesterol. documented in this encounter [facility] 10-25-2021 History of Present illness Narrative Chief Complaint Patient presents with: Results HPI Ioana Fletcher is a 51 year old female who presents here today for Above Complaints. Ioana is an established patient of Dr. Saenz, and myself. Telephone encounter on 10/02 giving results done by [facility] ordered from Hospital Follow-up appointment. Blood work done on 09/23: BUN 23 Cr 1.65 GFR 35 Ca 7.4 --- following with machine room engineer Dr. Benítez for this d/t autoimmunne hypoparathyroidism. Chol 266 Triglycerides 296 LDL 167 HDL 40 TSH 4.32 -- endocrine also follows this. Improved kidney function from 09/19 as in chart under external labs. Today... Blood work results faxed over today from [facility] include: BUN 18 Cr 1.11 GFR 55 Ca 8.5 COVID + after recent ER visit which may be contributing to recent delay in healing of AYLA d/t body fighting numerous conditions. Discussed TSH levels and cholesterol levels from prior. Pt reports TSH level fluctuates often d/t parathyroid function. Respiratory Tech is also following TSH levels. Does not [...] Breath Prednisone GI Upset, Other: See Comments [place] jittery Wellbutrin [Bupropi* Other: See Comments sweating [...] at bedtime. Per Psych- Keyur Dubon CNP ketoconazole (NIZORAL) 2 % cream Apply 1 [...] No suspicious activity was identified. 10/25/2021 by Cady Amaro APRN.PERMIT COORDINATOR 3. Panic attacks - ICD9: 300.01, ICD10: [...] to regimen. Faxed all lab results to [facility] to have completed. RTO as needed. Follow-up update in 2 weeks. Prescription instructions reviewed with patient as applicable. Potential red flag symptoms discussed with the patient. Reviewed appropriate action plan to take if red flag symptoms occur. Patient agreeable to treatment plan. I spent 55 minutes in the visit, with more than 50% of the total bfqt-da-pqgl time of the visit in counseling / coordination of care. Cady Amaro APRN.FADI [address] [place] [address] documented in this encounter [facility] 10-09-2021 Miscellaneous Notes The following approved medication requests have been transmitted electronically. Signed Prescriptions Disp Refills amLODIPine (NORVASC) 10 mg tablet 90 tablet 1 Sig: Take 1 tablet by mouth once daily. SUSY: No Cady Amaro APRN.FADI Please see pt message Abigail Mares Ma documented in this encounter [facility] 09-18-2021 History of Present illness Narrative Chief Complaint Patient presents with: Rx Refills HPI Ioana Fletcher is a 50 year old female who presents here today for Above Complaints.. Ioana is an established patient of Dr. Dany DO. Ioana is a new patient to me today. Concerns today.. Needs Klonopin refilled but overdue for 6 month visit d/t controlled substance use. Anxiety/panick attacks: Clonazepam 0.5mg once daily prn. Takes 1 tablet 6/7 days per week. Normally while at work when anxiety is the worst. Feels anxiety is well managed with this dosage. Had recent [facility] hospital admission from 09/12/21-09/14/21 d/t abnormal calcium levels. Was having HTN, diarrhea, CP, and confusion. Dx of autoimmune hypoparathyroidism. Prior to admission had low Ca level and machine room engineer recently increased Ca supplement and calcitriol. Pt arrived to ER and found to be hypercalcemic (up to 14.5) and AYLA from blood work. Spent 2 night in hospital and discharged home on 09/14. Had follow-up appointment with [place] doctor post-hospital visit and is following closely with her machine room engineer, Dr. Benítez, q2 days via virtual visits. [...] Breath Prednisone GI Upset, Other: See Comments [place] jittery Wellbutrin [Bupropi* Other: See Comments sweating [...] at bedtime. Per Psych- Keyur Dubon CNP ketoconazole (NIZORAL) 2 % cream Apply 1 [...] Will order and fax blood work to [facility] as follow-up from hospital values. Continue to closely follow with machine room engineer and follow recommendations. - TSH BLD - [...] with more than 50% of the total bsgt-qy-kdqf time of the visit in counseling / coordination of care. Prescription instructions reviewed with patient as applicable. Potential red flag symptoms discussed with the patient. Reviewed appropriate action plan to take if red flag symptoms occur. Patient agreeable to treatment plan. Cady Amaro APRN.CNP [address] [place] [address] documented in this encounter [facility] 09-18-2021 Miscellaneous Notes Pt rescheduled with [place] today at 5pm OK per BRIANA Mares Ma documented in this encounter [facility] 08-14-2021 Miscellaneous Notes The following approved medication requests have been transmitted electronically. Signed Prescriptions Disp Refills clonazePAM (KLONOPIN) 0.5 mg tablet 30 tablet 0 Sig: Take 1 tablet by mouth once daily as needed for up to 30 days. WILLIAM Class: C-IV SUSY: No Authorizing Provider: MITESH LEROY APRN.CNP PDMP website checked and validated. All prescriptions have been APPROPRIATELY filled. No suspicious activity was identified. 08/14/2021 by Mitesh Leroy CNP. daniel-- 02/13/21 Last refill --07/08/21 for 30 with 0 refills Last labs-- 07/29/21 documented in this encounter [facility] 04-22-2017 History of Past i llness Narrative Problem Noted Date Resolved Date Leg pain, bilateral 04/22/2017 11/23/2017 Iron deficiency anemia due to chronic blood loss 12/03/2016 11/23/2017 Menorrhagia with regular cycle 12/03/2016 0 11/23/2017 Abnormal uterine bleeding 08/17/20132017 Urge incontinence 08/17/2013 11/23/2017 Morbid obesity with BMI of 40.0-44.9, adult 08/11/201211/23/2017 Low back pain 12/28/2012 11/23/2017 documented as of this encounter (statuses as of 08/14/2021) [facility] History of Past illness Narrative* Problem [...] of this encounter (statuses as of 08/19/2021) [facility] History of Past illness Narrative* Problem [...] of this encounter (statuses as of 09/18/2021) [facility] History of Past illness Narrative* Problem [...] of this encounter (statuses as of 09/18/2021) [facility] History of Past illness Narrative* Problem [...] of this encounter (statuses as of 10/09/2021) [facility] History of Past illness Narrative* Problem [...] of this encounter (statuses as of 10/25/2021) [facility]2017 History of Past illness Narrative* Problem [...] of this encounter (statuses as of 11/06/2021) [facility] History of Past illness Narrative* Problem [...] of this encounter (statuses as of 11/06/2021) [facility] History of Past illness Narrative* Problem [...] of this encounter (statuses as of 11/22/2021) [facility] History of Past illness Narrative* Problem [...] of this encounter (statuses as of 11/25/2021) [facility] History of Past illness Narrative* Problem [...] of this encounter (statuses as of 12/29/2021) [facility] History of Past illness Narrative* Problem [...] of this encounter (statuses as of 01/30/2022) [facility] History of Past illness Narrative* Problem [...] of this encounter (statuses as of 02/03/2022) [facility] History of Past illness Narrative* Problem [...] of this encounter (statuses as of 03/05/2022) [facility] History of Past illness Narrative* Problem [...] of this encounter (statuses as of 03/05/2022) [facility] History of Past illness Narrative* Problem [...] of this encounter (statuses as of 03/31/2022) [facility] History of Past illness Narrative* Problem [...] of this encounter (statuses as of 04/10/2022) [facility] History of Past illness Narrative* Problem [...] of this encounter (statuses as of 05/08/2022) [facility] History of Past illness Narrative* Problem [...] of this encounter (statuses as of 05/09/2022) [facility] History of Past illness Narrative* Problem [...] of this encounter (statuses as of 05/09/2022) [facility] History of Past illness Narrative* Problem [...] of this encounter (statuses as of 07/03/2022) [facility] History of Past illness Narrative* Problem [...] of this encounter (statuses as of 07/04/2022) [facility] History of Past illness Narrative* Problem [...] of this encounter (statuses as of 09/09/2022) [facility] History of Past illness Narrative* Problem [...] of this encounter (statuses as of 10/03/2022) [facility] History of Past illness Narrative* Problem Noted Date Resolved Date Leg pain, bilateral 04/22/2017 11/23/2017 Iron deficiency anemia due to chronic blood loss 12/03/2016 11/23/2017 Menorrhagia with regular cycle 12/03/2016 0 11/23/2017 Abnormal uterine bleeding 08/17/20132017 Urge incontinence 08/17/2013 11/23/2017 Morbid obesity with BMI of 40.0-44.9, adult 08/11/201211/23/2017 Low back pain 12/28/2012 11/23/2017 documented as of this encounter (statuses as of 10/28/2022) [facility] History of Past illness Narrative* Problem [...] of this encounter (statuses as of 12/10/2022) [facility] History of Past illness Narrative* Problem [...] of this encounter (statuses as of 01/16/2023) [facility] History of Past illness Narrative* Problem [...] of this encounter (statuses as of 02/03/2023) [facility] History of Past illness Narrative* Problem [...] of this encounter (statuses as of 03/17/2023) [facility] History of Past illness Narrative* Problem [...] as of this encounter (statuses as of 07/17/2023) [facility] History of Past illness Narrative* Problem [...] as of this encounter (statuses as of 07/22/2023) [facility] History of Past illness Narrative* Problem [...] as of this encounter (statuses as of 07/24/2023) [facility] Situational anxiety Other anxiety states Panic attacks Panic disorder without agoraphobia [facility] Diagnosis Onset Date Resolution Status Diarrhea acute Viral cephalgia acute Essential hypertension acute Obesity acute Autoimmune hypoparathyroidism [facility] Work Phone: Evaluation note* Diagnosis Onset Date Resolution Status Diarrhea acute Viral cephalgia acute Essential hypertension acute Obesity acute Autoimmune hypoparathyroidism chronic Acute hypokalemia acute Acute kidney injury acute Hypercalcemia acute Hypermagnesemia acute Autoimmune hypoparathyroidism [facility] Work Phone: Evaluation note* Diagnosis Situational anxiety- Primary Other anxiety states Panic attacks Panic disorder without agoraphobia Swelling of upper arm Hypoparathyroidism, unspecified hypoparathyroidism type (HCC) AYLA (acute kidney injury) (HCC) Acute kidney failure, unspecified Vitamin D deficiency Unspecified vitamin D deficiency [facility] Diagnosis Onset Date Resolution Status Diarrhea acute Viral cephalgia acute Essential hypertension acute Obesity acute Autoimmune hypoparathyroidism chronic Acute kidney injury acute Hypercalcemia acute Autoimmune hypoparathyroidism chronic Acute hypokalemia resolved Hypermagnesemia resolved Acute kidney injury acute Anxiety acute Chronic bilateral low back pain without sciatica acute Essential hypertension acute Hypercalcemia acute Autoimmune hypoparathyroidism [facility] Work Phone: evaluation note* Diagnosis Onset Date Resolution Status Essential hypertension acute Obesity acute Autoimmune hypoparathyroidism chronic Acute kidney injury acute Hypercalcemia acute Autoimmune hypoparathyroidism chronic Acute hypokalemia resolved Hypermagnesemia resolved Acute kidney injury acute Anxiety acute Chronic bilateral low back pain without sciatica acute Essential hypertension acute Hypercalcemia acute Autoimmune hypoparathyroidism chronic COVID-19 [facility] Work Phone: Evaluation note* Diagnosis AYLA (acute kidney injury) (HCC)- Primary Acute kidney failure, unspecified Situational anxiety Other anxiety states Panic attacks Panic disorder without agoraphobia Hypoparathyroidism, unspecified hypoparathyroidism type (HCC) Thyroid disorder screening Screening for thyroid disorder Mixed hyperlipidemia Primary hypertension Unspecified essential hypertension Bilateral leg edema Edema [facility] Diagnosis Onset Date Resolution Status Essential hypertension acute Obesity acute Autoimmune hypoparathyroidism chronic Acute kidney injury acute Hypercalcemia acute Autoimmune hypoparathyroidism chronic Acute hypokalemia resolved Hypermagnesemia resolved Acute kidney injury acute Anxiety acute Chronic bilateral low back pain without sciatica acute Essential hypertension acute Hypercalcemia acute Autoimmune hypoparathyroidism chronic Establishing care with new doctor, encounter for noneactive Hospital discharge follow-up noneactive Keratosis pilaris noneactive [facility] Work Phone: Evaluation note* Diagnosis Hypertension, essential Unspecified essential hypertension [facility] Diagnosis Hypertension, essential Unspecified essential hypertension [facility] Diagnosis Mixed hyperlipidemia- Primary [facility] Diagnosis Situational anxiety Other anxiety states Panic attacks Panic disorder without agoraphobia [facility] Diagnosis Onset Date Resolution Status Acute kidney injury acute Hypercalcemia acute Autoimmune hypoparathyroidism chronic Acute hypokalemia resolved Hypermagnesemia resolved Acute kidney injury acute Anxiety acute Chronic bilateral low back pain without sciatica acute Essential hypertension acute Hypercalcemia acute Autoimmune hypoparathyroidism chronic Establishing care with new doctor, encounter for noneactive Hospital discharge follow-up noneactive Keratosis pilaris noneactive COVID-19 [facility] Work Phone: Evaluation note* Diagnosis Onset Date Resolution Status [facility] Work Phone: Evaluation note* Diagnosis Hypertension, essential Unspecified essential hypertension [facility] Diagnosis Situational anxiety Other anxiety states Panic attacks Panic disorder without agoraphobia documented in this encounter [facility] note* Diagnosis Encounter for screening mammogram for breast cancer [facility] Diagnosis Situational anxiety Other anxiety states Panic attacks Panic disorder without agoraphobia [facility] Diagnosis Hypertension, essential Unspecified essential hypertension Situational anxiety Other anxiety states Panic attacks Panic disorder without agoraphobia [facility] Diagnosis Situational anxiety- Primary Other anxiety states Hypertension, essential Unspecified essential hypertension Panic attacks Panic disorder without agoraphobia Mixed hyperlipidemia Hypoparathyroidism, unspecified hypoparathyroidism type (HCC) [facility] Diagnosis AYLA (acute kidney injury) (HCC)- Primary Acute kidney failure, unspecified [facility] Diagnosis Encounter for gynecological examination without abnormal finding- Primary Routine gynecological examination Encounter for screening for malignant neoplasm of cervix Screening for malignant neoplasm of the cervix Special screening examination for human papillomavirus (HPV) Encounter for screening mammogram for malignant neoplasm of breast Other screening mammogram [facility] Diagnosis Routine physical examination- Primary Routine [...] psoriasis Other psoriasis [facility] Diagnosis Scalp psoriasis- Primary Other psoriasis [facility] Diagnosis Hypertension, essential Unspecified essential hypertension [facility] Diagnosis Borderline abnormal thyroid function test- Primary Nonspecific abnormal results of thyroid function study Vitamin B12 deficiency Other B-complex deficiencies Hypertension, essential Unspecified essential hypertension Scalp psoriasis Other psoriasis Mixed hyperlipidemia Hypoparathyroidism, unspecified hypoparathyroidism type (HCC) Fatty liver Other chronic nonalcoholic liver disease Stage 3a chronic kidney disease (HCC) Situational anxiety Other anxiety states [facility] Diagnosis Weight gain- Primary Abnormal weight gain Numbness and tingling Disturbance of skin sensation Arm edema Edema Decreased GFR Nonspecific abnormal results of kidney function study Hypertension, essential Unspecified essential hypertension [facility] Hypertension, essential- Primary Unspecified essential hypertension Encounter for screening mammogram for malignant neoplasm of breast Other screening mammogram Uncontrolled hypertension Unspecified essential hypertension Vitamin B12 deficiency Other B-complex deficiencies Mixed hyperlipidemia Fatty liver Other chronic nonalcoholic liver disease Stage 3a chronic kidney disease (HCC) Situational anxiety Other anxiety states Fatigue, unspecified type documented in this encounter [facility] note* Diagnosis Hypertension, essential Unspecified essential hypertension [facility] Diagnosis Hypertension, essential Unspecified essential hypertension [facility] Diagnosis Well adult exam- Primary Routine general medical examination at a health care facility Sleep disorder Sleep disturbance, unspecified Sleep-wake cycle disorder Disruptions of 24 hour sleep wake cycle, unspecified Fatigue, unspecified type Recurrent URI (upper respiratory infection) Acute upper respiratory infections of unspecified site Hoarseness Dysphonia Bronchitis, mucopurulent recurrent (HCC) Mucopurulent chronic bronchitis Mixed hyperlipidemia Vitamin B12 deficiency Other B-complex deficiencies Stage 3a chronic kidney disease (HCC) Hypertension, essential Unspecified essential hypertension Fatty liver Other chronic nonalcoholic liver disease documented in this encounter [facility] note* Diagnosis Hypertension, essential Unspecified essential hypertension documented in this encounter [facility] note* Diagnosis Hypertension, essential Unspecified essential hypertension [facility] Diagnosis Encounter for screening mammogram for breast cancer documented in this encounter [facility] for referral (narrative)* Diagnostic Procedure Only (Routine) - Pending Review Specialty Diagnoses / Procedures Referred By Anni quesada Referred To Contact US IMAGING Diagnoses Swelling of upper arm Procedures US DVT UPPER LT DUP-SCAN XTR VEINS UNILATERAL/LIMITED STUDY Cady Amaro APRN.CNP [address] [place] [address] [facility] Referral ID Status Reason Start Date Expiration Date Visits Requested Visits Authorized [id number] Pending Review Auto-Generat ed Referral 09/18/2021 10/18/2022 1 1 [facility] for referral (narrative)* Diagnostic Procedure Only (Routine) - Pending Review Specialty Diagnoses / Procedures Referred By Anni quesada Referred To Contact [facility] Diagnoses Encounter for screening mammogram for breast cancer Procedures SARAH SCREENING SCREENING MAMMOGRAPHY BI 2-VIEW BREAST INC CAD Brendon Saenz, DO [address] [place] [address] [facility] [address] [place] [address] Referral ID Status Reason Start Date Expiration Date Visits Requested Visits Authorized [id number] Pending Review Auto-Generat ed Referral 04/25/2023 1 1 [facility] for referral (narrative)* Diagnostic Procedure Only (Routine) - Pending Review Specialty Diagnoses / Procedures Referred By Anni quesada Referred To Contact MOLECULAR & FUNCTIONAL IMAGING Diagnoses Calculus of gallbladder without cholecystitis without obstruction Procedures NM HEPATOBILIARY W EF AND/OR RX HEPATOBIL SYST IMAG INC GB W/PHARMA INTERVENJ Brendon Saenz DO [address] [place] [address] Molecular [facility] Functional [facility] [address] [place] [address] Referral ID Status Reason Start Date Expiration Date Visits Requested Visits Authorized [id number] Pending Review Auto-Generat ed Referral 12/09/2022 01/08/2024 1 1 * Diagnostic Procedure Only (Routine) - Pending Review Specialty Diagnoses / Procedures Referred By Anni quesada Referred To Contact [facility] IM[facility] Diagnoses Fatty liver Procedures US ELASTOGRAPHY LIVER ULTRASOUND ELASTOGRAPHY PARENCHYMA Brendon Saenz DO [address] [place] [address] Us Imaging Referral ID Status Reason Start Date Expiration Date Visits Requested Visits Authorized [id number] Pending Review Auto-Generat ed Referral 12/09/2022 01/08/2024 1 1 * Diagnostic Procedure Only (Routine) - Pending Review Specialty Diagnoses / Procedures Referred By Contac t Referred To Contact US IMAGING Diagnoses Fatty liver Procedures US ABD RIGHT UPPER QUADRANT US ABDOMINAL REAL TIME W/IMAGE LIMITED Brendon Saenz DO [address] [place] [address] Us Imaging Referral ID Status Reason Start Date Expiration Date Visits Requested Visits Authorized [id number] Pending Review Auto-Generat ed Referral 12/09/2022 01/08/2024 1 1 [facility] for referral (narrative)* Outpatient Procedure (Routine) - Pending Review Specialty Diagnoses / Procedures Referred By Contac t Referred To Contact [facility] Diagnoses Hypertension, essential Decreased GFR Weight gain Numbness and tingling Arm edema Procedures EMG(NEURO/NI) NERVE CONDUCTION STUDIES 9-10 STUDIES Mitesh Leroy APRN.PERMIT COORDINATOR [address] [place] [address] [facility] [place] [address] [place] [address] Referral ID Status Reason Start Date Expiration Date Visits Requested Visits Authorized [id number] Pending Review Auto-Generat ed Referral 07/17/2023 07/16/2024 1 1 * Diagnostic Procedure Only (Urgent) - Pending Review Specialty Diagnoses / Procedures Referred By Contac t Referred To Contact XR IMAGING Diagnoses Hypertension, essential Decreased GFR Weight gain Numbness and tingling Arm edema Procedures XR CERV OTHER 4V AP/LAT/OBL RADEX SPINE CERVICAL 4 OR 5 VIEWS Mitesh Leroy APRN.PERMIT COORDINATOR [address] [place] [address] [place] [address] Referral ID Status Reason Start Date Expiration Date Visits Requested Visits Authorized [id number] Pending Review Auto-Generat ed Referral 07/17/2023 08/15/2024 1 1 [facility] Procedure (Routine) - Pending Review Specialty Diagnoses / Procedures Referred By Jayaac t Referred To [facility] Diagnoses Hypertension, essential Uncontrolled hypertension Procedures US CAROTID ARTERIES IBRAHIMA [facility] DUPLEX SCAN EXTRACRANIAL ART COMPL BI STUDY Brendon Saenz DO [address] [place] [address] [address] Referral ID Status Reason Start Date Expiration Date Visits Requested Visits Authorized [id number] Pending Review Auto-Generat ed Referral 09/15/2023 09/14/2024 1 1 * Outpatient Procedure (Routine) - Pending Review Specialty Diagnoses / Procedures Referred By Jayaac t Referred To [facility] Diagnoses Hypertension, essential Uncontrolled hypertension Procedures US RENAL ARTERY [facility] DUP-SCAN ARTL PINKY ABDL/PEL/SCROT&/RPR ORGN COM Brendon Saenz DO [address] [place] [address] [address] Referral ID Status Reason Start Date Expiration Date Visits Requested Visits Authorized [id number] Pending Review Auto-Generat ed Referral 09/15/2023 09/14/2024 1 1 * Outpatient Procedure (Routine) - Pending Review Specialty Diagnoses / Procedures Referred By Contac t Referred To [facility] Diagnoses Hypertension, essential Uncontrolled hypertension Procedures ECHO ECHO TTHRC R-T 2D W/WOM-MODE COMPL SPEC&COLR D Brendon Saenz DO [address] [place] [address] [address] Referral ID Status Reason Start Date Expiration Date Visits Requested Visits Authorized [id number] Pending Review Auto-Generat ed Referral 09/15/2023 09/14/2024 1 1 * Diagnostic Procedure Only (Routine) - Pending Review Specialty Diagnoses / Procedures Referred By Anni quesada Referred To Contact [facility] Diagnoses Encounter for screening mammogram for malignant neoplasm of breast Procedures SARAH SCREENING W HETAL SCREENING DIGITAL BREAST TOMOSYNTHESIS BI SCREENING MAMMOGRAPHY BI 2-VIEW BREAST INC CAD Brendon Saenz DO [address] [place] [address] [facility] [address] [place] [phone] Referral ID Status Reason Start Date Expiration Date Visits Requested Visits Authorized [id number] Pending Review Auto-Generat ed Referral 09/15/2023 10/14/2024 1 1 [facility] for referral (narrative)* Outpatient Procedure (Routine) - New Request Specialty Diagnoses / Procedures Referred By Anni quesada Referred To Contact [facility] Diagnoses Recurrent URI (upper respiratory infection) Hoarseness Bronchitis, mucopurulent recurrent (HCC) Procedures SPIROMETRY - BASELINE AND POST DILATOR BRNCDILAT RSPSE SPMTRY PRE&POST-BRNCDILAT ADMN Brendon Saenz DO [address] [place] [address] [facility] [place] [address] [place] [address] Referral ID Status Reason Start Date Expiration Date Visits Requested Visits Authorized [id number] New Request Auto-Generat ed Referral 4 04/17/2025 1 1 * Consult, Test, Treat (Routine) - Authorized Specialty Diagnoses / Procedures Referred By Anni quesada Referred To Contact Diagnoses Sleep disorder Sleep-wake cycle disorder Fatigue, unspecified type Procedures CONSULT TO SLEEP MEDICINE - ADULT OFFICE/OUTPATIENT NEW HIGH MDM 60 MINUTES Brendon Saenz DO [address] [place] [address] Referral ID Status Reason Start Date Expiration Date Visits Requested Visits Authorized [id number] Authorized PCP Requested Referral 11/15/03/18/2025 1 1 [facility] Summary Purpose Family History No Family History Records Found Relationship Condition Age at Onset Recorded Date/T patricia brother Asthma Unknown Autoimmune disorder Unknown Diabetes mellitus Unknown Hypertension Unknown Kidney disorder Unknown Mental disorder Unknown mother Arthritis Unknown Venous thrombosis Unknown Hyperlipidemia Unknown grandmother Malignant neoplasm Unknown Malignant melanoma Unknown grandfather Myocardial infarction Unknown Cardiac disease Unknown Advance Directives No Advanced Directives Records Found Advance Directive Response Recorded Date/ Time Living Will No September 29, 2019 1 1:42am Power of Waste Recycler No September 29, 2019 11:42am Advance Directive Response Recorded Date/ Time Living Will No September 12, 2021 6 :14pm Power of Waste Recycler No September 12, 2021 6:14pm Chief Complaint and Reason for Visit Chief Complaint COVID TEST (BMS) EORDER 1 Y FU Reason for Visit Diarrhea Viral cephalgia Essential hypertension Obesity Autoimmune hypoparathyroidism Chief Complaint COVID TEST (BMS) EORDER 1 Y FU HYPERCALCEMIA, AYLA Reason for Visit Diarrhea Viral cephalgia Essential hypertension Obesity Autoimmune hypoparathyroidism Chief Complaint COVID TEST (BMS) EORDER 1 Y FU HYPERCALCEMIA, AYLA HYPERCALCEMIA, AYLA HYPERCALCEMIA, YALA HYPERCALCEMIA, AYLA Reason for Visit Diarrhea Viral cephalgia Essential hypertension Obesity Autoimmune hypoparathyroidism Acute hypokalemia Acute kidney injury Hypercalcemia Hypermagnesemia Autoimmune hypoparathyroidism Chief Complaint COVID TEST (BMS) EORDER 1 Y FU HYPERCALCEMIA, AYLA HYPERCALCEMIA, AYLA HYPERCALCEMIA, AYLA HYPERCALCEMIA, AYLA MECHANICAL ENGINEERING DRAFTSPERSON, EST. CARE, PT HAS NPP EORDER E-ORDER Reason for Visit Diarrhea Viral cephalgia Essential hypertension Obesity Autoimmune hypoparathyroidism Acute kidney injury Hypercalcemia Autoimmune hypoparathyroidism Acute hypokalemia Hypermagnesemia Acute kidney injury Anxiety Chronic bilateral low back pain without sciatica Essential hypertension Hypercalcemia Autoimmune hypoparathyroidism Chief Complaint COVID TEST (BMS) EORDER 1 Y FU HYPERCALCEMIA, AYLA HYPERCALCEMIA, AYLA HYPERCALCEMIA, AYLA HYPERCALCEMIA, AYLA MECHANICAL ENGINEERING DRAFTSPERSON, EST. CARE, PT HAS NPP EORDER E-ORDER INT LAB/PAPER ORDER Reason for Visit Diarrhea Viral cephalgia Essential hypertension Obesity Autoimmune hypoparathyroidism Acute kidney injury Hypercalcemia Autoimmune hypoparathyroidism Acute hypokalemia Hypermagnesemia Acute kidney injury Anxiety Chronic bilateral low back pain without sciatica Essential hypertension Hypercalcemia Autoimmune hypoparathyroidism Chief Complaint EORDER 1 Y FU HYPERCALCEMIA, AYLA HYPERCALCEMIA, AYLA HYPERCALCEMIA, AYLA HYPERCALCEMIA, AYLA MECHANICAL ENGINEERING DRAFTSPERSON, EST. CARE, PT HAS NPP EORDER E-ORDER INT LAB/PAPER ORDER PCR COVID/[employer] EMPLOYEE Reason for Visit Essential hypertensi on Obesity Autoimmune hypoparathyroidism Acute kidney injury Hypercalcemia Autoimmune hypoparathyroidism Acute hypokalemia Hypermagnesemia Acute kidney injury Anxiety Chronic bilateral low back pain without sciatica Essential hypertension Hypercalcemia Autoimmune hypoparathyroidism COVID-19 Chief Complaint EORDER 1 Y FU HYPERCALCEMIA, AYLA HYPERCALCEMIA, AYLA HYPERCALCEMIA, AYLA HYPERCALCEMIA, AYLA MECHANICAL ENGINEERING DRAFTSPERSON, EST. CARE, PT HAS NPP EORDER E-ORDER INT LAB/PAPER ORDER PCR [employer] EMPLOYEE E ORDER Reason for Visit Essential hypertensi on Obesity Autoimmune hypoparathyroidism Acute kidney injury Hypercalcemia Autoimmune hypoparathyroidism Acute hypokalemia Hypermagnesemia Acute kidney injury Anxiety Chronic bilateral low back pain without sciatica Essential hypertension Hypercalcemia Autoimmune hypoparathyroidism COVID-19 Chief Complaint EORDER 1 Y FU HYPERCALCEMIA, AYLA HYPERCALCEMIA, AYLA HYPERCALCEMIA, AYLA HYPERCALCEMIA, AYLA MECHANICAL ENGINEERING DRAFTSPERSON, EST. CARE, PT HAS NPP EORDER E-ORDER INT LAB/PAPER ORDER PCR COVID/[employer] EMPLOYEE E ORDER E ORDER Reason for Visit Essential hypertensi on Obesity Autoimmune hypoparathyroidism Acute kidney injury Hypercalcemia Autoimmune hypoparathyroidism Acute hypokalemia Hypermagnesemia Acute kidney injury Anxiety Chronic bilateral low back pain without sciatica Essential hypertension Hypercalcemia Autoimmune hypoparathyroidism Establishing care with new doctor, encounter for Hospital discharge follow-up Keratosis pilaris COVID-19 Chief Complaint HYPERCALCEMIA, AYLA HYPERCALCEMIA, AYLA HYPERCALCEMIA, AYLA HYPERCALCEMIA, AYLA MECHANICAL ENGINEERING DRAFTSPERSON, EST. CARE, PT HAS NPP EORDER E-ORDER INT LAB/PAPER ORDER PCR COVID/[employer] EMPLOYEE E ORDER E ORDER INT LABS FOR [facility] Reason for Visit Acute kidney injury Hypercalcemia Autoimmune hypoparathyroidism Acute hypokalemia Hypermagnesemia Acute kidney injury Anxiety Chronic bilateral low back pain without sciatica Essential hypertension Hypercalcemia Autoimmune hypoparathyroidism Establishing care with new doctor, encounter for Hospital discharge follow-up Keratosis pilaris COVID-19 Chief Complaint E-ORDER INT LAB/PAPER ORDER PCR COVID/[employer] EMPLOYEE E ORDER E ORDER INT LABS FOR [facility] INT LABS Reason for Visit COVID-19 Reason for Referral Specialty Diagnoses / Procedures Referred By Anni quesada Referred To Contact Dermatology Diagnoses Scalp psoriasis Procedures CONSULT TO DERMATOLOGY Cady Rizzo APRN.PERMIT COORDINATOR [address] [facility] [address] Referral ID Status Reason Start Date Expiration Date Visits Requested Visits Authorized [id number] Ref Not Required PCP Requested Referral 01/15/2023 01/15/2024 1 1 Additional Source Comments INFORMATION SOURCE (unrecogn ized section and content) DATE CREATED AUTHOR 03/01/2018 [facility] DATE CREATED AUTHOR AUTHOR'S ORGANIZ ATION 03/05/2025 [facility] DATE CREATED AUTHOR AUTHOR'S ORGANIZ ATION 03/10/2025 [facility] Source Comments (unrecognize d section and content) In the event this informatio n is protected by the Federal Confidentiality of Alcohol and Drug Abuse Patient Records regulations: The Federal rules restrict any use of the information to criminally investigate or prosecute any alcohol or drug abuse patient.[facility] the event this information is protected by the Federal Confidentiality of Alcohol and Drug Abuse Patient Records regulations: The Federal rules restrict any use of the information to criminally investigate or prosecute any alcohol or drug abuse patient.[facility]In the event this information is protected by the Federal Confidentiality of Alcohol and Drug Abuse Patient Records regulations: The Federal rules restrict any use of the information to criminally investigate or prosecute any alcohol or drug abuse patient.[facility]In the event this information is protected by the Federal Confidentiality of Alcohol and Drug Abuse Patient Records regulations: The Federal rules restrict any use of the information to criminally investigate or prosecute any alcohol or drug abuse patient.[facility] HospitalIn the event this information is protected by the Federal Confidentiality of Alcohol and Drug Abuse Patient Records regulations: The Federal rules restrict any use of the information to criminally investigate or prosecute any alcohol or drug abuse patient.[facility] HospitalIn the event this information is protected by the Federal Confidentiality of Alcohol and Drug Abuse Patient Records regulations: The Federal rules restrict any use of the information to criminally investigate or prosecute any alcohol or drug abuse patient.[facility] HospitalIn the event this information is protected by the Federal Confidentiality of Alcohol and Drug Abuse Patient Records regulations: The Federal rules restrict any use of the information to criminally investigate or prosecute any alcohol or drug abuse patient.[facility] HospitalIn the event this information is protected by the Federal Confidentiality of Alcohol and Drug Abuse Patient Records regulations: The Federal rules restrict any use of the information to criminally investigate or prosecute any alcohol or drug abuse patient.[facility] HospitalIn the event this information is protected by the Federal Confidentiality of Alcohol and Drug Abuse Patient Records regulations: The Federal rules restrict any use of the information to criminally investigate or prosecute any alcohol or drug abuse patient.[facility] HospitalIn the event this information is protected by the Federal Confidentiality of Alcohol and Drug Abuse Patient Records regulations: The Federal rules restrict any use of the information to criminally investigate or prosecute any alcohol or drug abuse patient.[facility] HospitalIn the event this information is protected by the Federal Confidentiality of Alcohol and Drug Abuse Patient Records regulations: The Federal rules restrict any use of the information to criminally investigate or prosecute any alcohol or drug abuse patient.[facility] HospitalIn the event this information is protected by the Federal Confidentiality of Alcohol and Drug Abuse Patient Records regulations: The Federal rules restrict any use of the information to criminally investigate or prosecute any alcohol or drug abuse patient.[facility] HospitalIn the event this information is protected by the Federal Confidentiality of Alcohol and Drug Abuse Patient Records regulations: The Federal rules restrict any use of the information to criminally investigate or prosecute any alcohol or drug abuse patient.[facility] HospitalIn the event this information is protected by the Federal Confidentiality of Alcohol and Drug Abuse Patient Records regulations: The Federal rules restrict any use of the information to criminally investigate or prosecute any alcohol or drug abuse patient.[facility] HospitalIn the event this information is protected by the Federal Confidentiality of Alcohol and Drug Abuse Patient Records regulations: The Federal rules restrict any use of the information to criminally investigate or prosecute any alcohol or drug abuse patient.[facility] HospitalIn the event this information is protected by the Federal Confidentiality of Alcohol and Drug Abuse Patient Records regulations: The Federal rules restrict any use of the information to criminally investigate or prosecute any alcohol or drug abuse patient.[facility] HospitalIn the event this information is protected by the Federal Confidentiality of Alcohol and Drug Abuse Patient Records regulations: The Federal rules restrict any use of the information to criminally investigate or prosecute any alcohol or drug abuse patient.[facility] HospitalIn the event this information is protected by the Federal Confidentiality of Alcohol and Drug Abuse Patient Records regulations: The Federal rules restrict any use of the information to criminally investigate or prosecute any alcohol or drug abuse patient.[facility] HospitalIn the event this information is protected by the Federal Confidentiality of Alcohol and Drug Abuse Patient Records regulations: The Federal rules restrict any use of the information to criminally investigate or prosecute any alcohol or drug abuse patient.[facility] HospitalIn the event this information is protected by the Federal Confidentiality of Alcohol and Drug Abuse Patient Records regulations: The Federal rules restrict any use of the information to criminally investigate or prosecute any alcohol or drug abuse patient.[facility] HospitalIn the event this information is protected by the Federal Confidentiality of Alcohol and Drug Abuse Patient Records regulations: The Federal rules restrict any use of the information to criminally investigate or prosecute any alcohol or drug abuse patient.[facility] HospitalIn the event this information is protected by the Federal Confidentiality of Alcohol and Drug Abuse Patient Records regulations: The Federal rules restrict any use of the information to criminally investigate or prosecute any alcohol or drug abuse patient.[facility] HospitalIn the event this information is protected by the Federal Confidentiality of Alcohol and Drug Abuse Patient Records regulations: The Federal rules restrict any use of the information to criminally investigate or prosecute any alcohol or drug abuse patient.[facility] HospitalIn the event this information is protected by the Federal Confidentiality of Alcohol and Drug Abuse Patient Records regulations: The Federal rules restrict any use of the information to criminally investigate or prosecute any alcohol or drug abuse patient.[facility] HospitalIn the event this information is protected by the Federal Confidentiality of Alcohol and Drug Abuse Patient Records regulations: The Federal rules restrict any use of the information to criminally investigate or prosecute any alcohol or drug abuse patient.[facility] HospitalIn the event this information is protected by the Federal Confidentiality of Alcohol and Drug Abuse Patient Records regulations: The Federal rules restrict any use of the information to criminally investigate or prosecute any alcohol or drug abuse patient.[facility] HospitalIn the event this information is protected by the Federal Confidentiality of Alcohol and Drug Abuse Patient Records regulations: The Federal rules restrict any use of the information to criminally investigate or prosecute any alcohol or drug abuse patient.[facility] HospitalIn the event this information is protected by the Federal Confidentiality of Alcohol and Drug Abuse Patient Records regulations: The Federal rules restrict any use of the information to criminally investigate or prosecute any alcohol or drug abuse patient.[facility] HospitalIn the event this information is protected by the Federal Confidentiality of Alcohol and Drug Abuse Patient Records regulations: The Federal rules restrict any use of the information to criminally investigate or prosecute any alcohol or drug abuse patient.[facility] HospitalIn the event this information is protected by the Federal Confidentiality of Alcohol and Drug Abuse Patient Records regulations: The Federal rules restrict any use of the information to criminally investigate or prosecute any alcohol or drug abuse patient.[facility] HospitalIn the event this information is protected by the Federal Confidentiality of Alcohol and Drug Abuse Patient Records regulations: The Federal rules restrict any use of the information to criminally investigate or prosecute any alcohol or drug abuse patient.[facility] HospitalIn the event this information is protected by the Federal Confidentiality of Alcohol and Drug Abuse Patient Records regulations: The Federal rules restrict any use of the information to criminally investigate or prosecute any alcohol or drug abuse patient.[facility] HospitalIn the event this information is protected by the Federal Confidentiality of Alcohol and Drug Abuse Patient Records regulations: The Federal rules restrict any use of the information to criminally investigate or prosecute any alcohol or drug abuse patient.[facility] HospitalIn the event this information is protected by the Federal Confidentiality of Alcohol and Drug Abuse Patient Records regulations: The Federal rules restrict any use of the information to criminally investigate or prosecute any alcohol or drug abuse patient.[facility] HospitalIn the event this information is protected by the Federal Confidentiality of Alcohol and Drug Abuse Patient Records regulations: The Federal rules restrict any use of the information to criminally investigate or prosecute any alcohol or drug abuse patient.[facility] HospitalIn the event this information is protected by the Federal Confidentiality of Alcohol and Drug Abuse Patient Records regulations: The Federal rules restrict any use of the information to criminally investigate or prosecute any alcohol or drug abuse patient.[facility] HospitalIn the event this information is protected by the Federal Confidentiality of Alcohol and Drug Abuse Patient Records regulations: The Federal rules restrict any use of the information to criminally investigate or prosecute any alcohol or drug abuse patient.[facility] HospitalIn the event this information is protected by the Federal Confidentiality of Alcohol and Drug Abuse Patient Records regulations: The Federal rules restrict any use of the information to criminally investigate or prosecute any alcohol or drug abuse patient.[facility] HospitalIn the event this information is protected by the Federal Confidentiality of Alcohol and Drug Abuse Patient Records regulations: The Federal rules restrict any use of the information to criminally investigate or prosecute any alcohol or drug abuse patient.[facility] HospitalIn the event this information is protected by the Federal Confidentiality of Alcohol and Drug Abuse Patient Records regulations: The Federal rules restrict any use of the information to criminally investigate or prosecute any alcohol or drug abuse patient.[facility] HospitalIn the event this information is protected by the Federal Confidentiality of Alcohol and Drug Abuse Patient Records regulations: The Federal rules restrict any use of the information to criminally investigate or prosecute any alcohol or drug abuse patient.[facility] HospitalIn the event this information is protected by the Federal Confidentiality of Alcohol and Drug Abuse Patient Records regulations: The Federal rules restrict any use of the information to criminally investigate or prosecute any alcohol or drug abuse patient.[facility] HospitalIn the event this information is protected by the Federal Confidentiality of Alcohol and Drug Abuse Patient Records regulations: The Federal rules restrict any use of the information to criminally investigate or prosecute any alcohol or drug abuse patient.[facility] HospitalIn the event this information is protected by the Federal Confidentiality of Alcohol and Drug Abuse Patient Records regulations: The Federal rules restrict any use of the information to criminally investigate or prosecute any alcohol or drug abuse patient.[facility] Reason for Visit (unrecogniz ed section and content) Reason Onset Date Comments Refill Request 08/14/2021 Reason Comments Rx Refills Reason Comments Results [...] Comments Refill Request Medication refill fo r klonipin Reason Comments Outside Labs-[facility] Ordered Reason Comments Results Orders Reason Onset Date Comments Yearly Exam 10/03/2022 Reason Onset Date Comments Refill Request 10/26/2022 Reason Comments Yearly Exam Reason Onset Date Comments Refill Request 02/01/2023 Reason Comments F/U 3 Month Reason Comments left hand numbness, tingling, pain Reason Comments 6 Month Exam Reason Onset Date Comments Refill Request 02/21/2024 Reason Comments Yearly Exam Reason Comments [facility] Sleep Lab requesting records Reason Comments Refill Request Care Teams (unrecognized sec tion and content) Industrial Painter Relationship Specialty Start Date End Date Brendon Saenz, DO [address] [place] [address] PCP - General Family Practice 12/28/12 Industrial Painter Relationship Specialty Start Date End Date Brendon Saenz DO [address] [place] [address] PCP - General Family Practice 12/28/12 Industrial Painter Relationship Specialty Start Date End Date Brendon Saenz, DO [address] [place] [address] PCP - General Family Practice 12/28/12 Industrial Painter Relationship Specialty Start Date End Date Brendon Saenz, DO [address] [place] [address] PCP - General Family Practice 12/28/12 Industrial Painter Relationship Specialty Start Date End Date Brendon Saenz, DO [address] [place] [address] PCP - General Family Practice 12/28/12 Industrial Painter Relationship Specialty Start Date End Date Brendon Saenz, DO [address] [place] [address] PCP - General Family Practice 12/28/12 Industrial Painter Relationship Specialty Start Date End Date Brendon Saenz, DO [address] [place] [address] PCP - General Family Practice 12/28/12 Industrial Painter Relationship Specialty Start Date End Date Brendon Saenz, DO [address] [place] [address] PCP - General Family Practice 12/28/12 Industrial Painter Relationship Specialty Start Date End Date Brendon Saenz, DO [address] [place] [address] PCP - General Family Practice 12/28/12 Industrial Painter Relationship Specialty Start Date End Date Brendon Saenz, DO [address] [place] [address] PCP - General Family Medicine 12/28/12 Industrial Painter Relationship Specialty Start Date End Date Brendon Saenz, DO [address] [place] [address] PCP - General Family Medicine 12/28/12 Industrial Painter Relationship Specialty Start Date End Date Brendon Saenz, DO [address] [place] [address] PCP - General Family Medicine 12/28/12 Industrial Painter Relationship Specialty Start Date End Date Brendon Saenz, DO [address] [place] [address] PCP - General Family Medicine 12/28/12 Industrial Painter Relationship Specialty Start Date End Date Brendon Saenz, DO [address] [place] [address] PCP - General Family Medicine 12/28/12 Industrial Painter Relationship Specialty Start Date End Date Brendon Saenz, DO [address] [place] [address] PCP - General Family Medicine 12/28/12 Industrial Painter Relationship Specialty Start Date End Date Brendon Saenz, DO [address] [place] [address] PCP - General Family Medicine 12/28/12 Industrial Painter Relationship Specialty Start Date End Date Brendon Saenz DO [address] [place] [address] PCP - General Family Medicine 12/28/12 Industrial Painter Relationship Specialty Start Date End Date Brendon Saenz DO [address] [place] [address] PCP - General Family Medicine 12/28/12 Industrial Painter Relationship Specialty Start Date End Date Brendon Saenz DO [address] [place] [address] PCP - General Family Medicine 12/28/12 Industrial Painter Relationship Specialty Start Date End Date Brendon Saenz DO [address] [facility] [place] [address] PCP - General Family Medicine 12/28/12 Industrial Painter Relationship Specialty Start Date End Date Brendon Saenz DO [address] [facility] [place] [address] PCP - General Family Medicine 12/28/12 Industrial Painter Relationship Specialty Start Date End Date Brendon Saenz DO [address] [facility] [place] [address] PCP - General Family Medicine 12/28/12 Industrial Painter Relationship Specialty Start Date End Date Brendon Saenz, [address] [place] [address] PCP - General Family Medicine 12/28/12 Industrial Painter Relationship Specialty Start Date End Date Brendon Saenz DO [address] [place] [address] PCP - General Family Medicine 12/28/12 Industrial Painter Relationship Specialty Start Date End Date Brendon Saenz, [address] [place] [address] PCP - General Family Medicine 12/28/12 Industrial Painter Relationship Specialty Start Date End Date Brendon Saenz DO [address] [place] [address] PCP - General Family Medicine 12/28/12 Industrial Painter Relationship Specialty Start Date End Date Brendon Saenz, [address] [place] [address] PCP - General Family Medicine 12/28/12 Industrial Painter Relationship Specialty Start Date End Date Brendon Saenz, [address] [place] [address] PCP - General Family Medicine 12/28/12 Industrial Painter Relationship Specialty Start Date End Date Brendon Saenz DO [address] [place] [address] PCP - General Family Medicine 12/28/12 Industrial Painter Relationship Specialty Start Date End Date Brendon Saenz, [address] [place] [address] PCP - General Family Medicine 12/28/12 Industrial Painter Relationship Specialty Start Date End Date Brendon Saenz DO [address] [place] [address] PCP - General Family Medicine 12/28/12 Industrial Painter Relationship Specialty Start Date End Date Brendon Saenz DO [address] [place] [address] PCP - General Family Medicine 12/28/12 Industrial Painter Relationship Specialty Start Date End Date Brendon Saenz DO [address] [place] [address] PCP - General Family Medicine 12/28/12 Cady Rizzo, SALES FORCE DEVELOPER.PERMIT COORDINATOR [address] [place] [address] Mechanical Engineering Intern Family Medicine 04/10/24 Mitesh Leroy, SALES FORCE DEVELOPER.PERMIT COORDINATOR [address] [place] [address] Mechanical Engineering Intern Family Medicine 04/10/24 Industrial Painter Relationship Specialty Start Date End Date Brendon Saenz DO [address] [place] [address] PCP - General Family Medicine 12/28/12 Cady Rizzo, SALES FORCE DEVELOPER.PERMIT COORDINATOR [address] [place] [address] Mechanical Engineering Intern Family Medicine 04/10/24 Mitesh Leroy, SALES FORCE DEVELOPER.PERMIT COORDINATOR [address] [place] [address] Mechanical Engineering Intern Family Medicine 04/10/24 Industrial Painter Relationship Specialty Start Date End Date Brendon Saenz DO [address] [facility] [place] [address] PCP - General Family Medicine 12/28/12 Mitesh Leroy, SALES FORCE DEVELOPER.PERMIT COORDINATOR [address] [facility] [place] [address] [facility] 04/[facility]24 Industrial Painter Relationship Specialty Start Date End Date Brendon Saenz DO [address] [facility] [place] [place] [address] PCP - General Family Medicine 12/28/12 Mitesh Leroy, SALES FORCE DEVELOPER.PERMIT COORDINATOR [address] [place] [address] [facility] 04/10/24 Industrial Painter Relationship Specialty Start Date End Date Brendon Saenz DO [address] [facility] [place] [place] [address] PCP - General Family Medicine 12/28/12 Mitesh Leroy, SALES FORCE DEVELOPER.PERMIT COORDINATOR [address] [facility] [place] [address] [facility] 04/10/24 Industrial Painter Relationship Specialty Start Date End Date Brendon Saenz DO [address] [place] [address] PCP - General Family Medicine 12/28/12 Cady Rizzo, SALES FORCE DEVELOPER.PERMIT COORDINATOR [address] [facility] [place] [address] [employer] Intern [facility] 04/10/24 07/22/24 Mitesh Leroy APRN.PERMIT COORDINATOR [address] [place], [place] [address] [facility] 04/10/24 Piedad Silveira APRN.PERMIT COORDINATOR [address] [place] [address] [facility] 10/17/24 FOR RECORDS PERTAINING TO PATIENTS WHO ARE [...] BE BASED ON THE PRIMARY CLINICAL RECORDS. [facility] [employer] provides no warranty or guarantee of the accuracy or completeness of information in this document.
== END | disposition home or self-care (01) ==
LOC: SL 19:59
PROVIDERS: PCP Student in an Organized Health Care Education/Training Program; Referring Provider Nurse Practitioner Acute Care; Visit Provider Nurse Practitioner Acute Care
DX: G47.33 Obstructive sleep apnea (adult) (pediatric) (principal)
CPT/HCPCS: 95811

== ENCOUNTER → 2025-03-24 | Outpatient (CLI) | payer OTHER, SELFPAY ==
[2025-03-24 11:48] LABS: CORTISOL AM 10.50 ug/dL (6.02-18.40); Cholesterol 243 mg/dL (<=200); Low Density Lipoprotein Calc. 158 mg/dL; Triglycerides 197 mg/dL; Very Low Density Lipoprotein 39 mg/dL (5-40); cholesterol:hdl ratio screen 4.93
== END | disposition home or self-care (01) ==
LOC: LAB 10:38
PROVIDERS: PCP Student in an Organized Health Care Education/Training Program; Referring Provider Student in an Organized Health Care Education/Training Program; Visit Provider Student in an Organized Health Care Education/Training Program
DX: Z00.00 Encounter for general adult medical examination without abnormal findings (principal); E78.5 Hyperlipidemia, unspecified; R73.9 Hyperglycemia, unspecified
CPT/HCPCS: 36415; 80061; 82533; 83036; 83525

== ENCOUNTER → 2025-03-27 | Outpatient (CLI) | payer OTHER, SELFPAY | END | disposition home or self-care (01) | LOC: SL 15:50 | PROVIDERS: PCP Student in an Organized Health Care Education/Training Program; Referring Provider Nurse Practitioner Acute Care; Visit Provider Nurse Practitioner Acute Care | DX: Z46.89 Encounter for fitting and adjustment of other specified devices (principal) ==